=== PATIENT | female | born 1955 | race Caucasian/White ===

== ENCOUNTER → 2017-10-02 15:38 | Outpatient (CLI) | payer BC, SELFPAY ==
--- NOTE | 2017-10-02 15:43 | BD_ITS ---
STUDY: DUAL ENERGY X-RAY ABSORPTIOMETRY / DXA REASON FOR EXAM: Female, 62 years old. The patient is postmenopausal. No loss of height. TECHNIQUE: Bone Mineral Density (BMD) measurements of lumbar spine and bilateral hips were obtained. COMPARISON: None. FINDINGS: Lumbar Spine (L1-L4): g/cm2 (0.976) / T-score (-1.9) / Z-score (-0.6) Findings are suggestive of osteopenia with a moderate fracture risk. 50% loss of height of a mid dorsal vertebrae. Left Femur Total: g/cm2 (0.766) / T-score (-1.9) / Z-score (-0.9) Left Femoral Neck: g/cm2 (0.730) / T-score (-2.2) / Z-score (-0.9) Right Femur Total: g/cm2 (0.769) / T-score (-1.9) / Z-score (-0.9) Right Femoral Neck: g/cm2 (0.728) / T-score (-2.2) / Z-score (-1.0) BD/Dexa Bone Density Study IMPRESSION: The patient is considered osteopenic as outlined below according to World Myles Organization (WHO) criteria with a moderate fracture risk. Reference Information: The T-score is the number of standard deviations above or below the standard which is normal for young adults at their peak bone mineral density. The World Health Organization (WHO) interprets the T-scores as follows: Above -1 Normal bone density Between -1 and -2.5 Osteopenia Equal to / or below -2.5 Osteoporosis As a practical clinical guideline, osteopenia may be graded as follows: Mild -1 through -1.5 Moderate -1.6 through -2.0 Severe -2.1 through -2.4 The Z-score is the number of standard deviations above or below age-matched controls. A Z-score of less than -1.5 would be considered abnormal. References: 1. NIH Osteoporosis and Related Bone Diseases http://www.osteo.org 2. International Society for Clinical Densitometry http://www.iscd.org 3. National Osteoporosis Foundation http://www.nof.org Electronically Signed: Rocky Lunsford MD at 8:18 EDT Tel [phone], Service support ,
== END ==
PROVIDERS: Family Provider Internal Medicine; PCP Internal Medicine; Visit Provider Obstetrics & Gynecology
DX: Z13.820 Encounter for screening for osteoporosis (principal)
CPT/HCPCS: 77080

== ENCOUNTER → 2017-10-16 15:17 | Outpatient (CLI) | payer BC, SELFPAY ==
--- NOTE | 2017-10-16 15:21 | RAD_ITS ---
STUDY: X-RAY CHEST REASON FOR EXAM: Female, 62 years old. Chest pain TECHNIQUE: Thoracic pain COMPARISON: None. FINDINGS: The lungs are clear. There are no pleural effusions. There is no pneumothorax. The heart is normal in size. There is a moderate compression deformity in the midthoracic spine which is stable when compared with the DEXA scan dated 10/02/2017. RAD/Chest PA and Lateral IMPRESSION: Clear lungs. Moderate compression deformity in the midthoracic spine which is stable when compared with the DEXA scan dated 10/02/2017. Electronically Signed: Neil Box, at 16:28 EDT Tel , Service support ,
--- NOTE | 2017-10-16 15:21 | RAD_ITS ---
STUDY: X-RAY - THORACIC SPINE REASON FOR EXAM: Female, 62 years old. Back pain TECHNIQUE: 3 view(s) of the thoracic spine were obtained. COMPARISON: None. FINDINGS: There is a moderate compression deformity in the midthoracic spine which is stable when compared with the DEXA scan dated 10/02/2017. The remainder of the vertebral bodies are intact. There are mild degenerative changes. RAD/Thoracic Spine 3 Views IMPRESSION: Moderate compression deformity in the midthoracic spine which is stable when compared with the DEXA scan dated 10/02/2017. The remainder of the vertebral bodies are intact. Mild degenerative changes. Electronically Signed: Neil Box, at 16:31 EDT Tel , Service support ,
[2017-10-16 18:23] LABS: D-Dimer Quantitative (DVT/PE) < 0.27 FEU/ug/m (0.27-0.49)
== END ==
PROVIDERS: Family Provider Internal Medicine; PCP Internal Medicine; Visit Provider Internal Medicine
DX: M54.6 Pain in thoracic spine (principal)
CPT/HCPCS: 36415; 71046; 72072; 85379

== ENCOUNTER → 2017-10-30 17:00 | Outpatient (CLI) | payer BC, SELFPAY ==
--- NOTE | 2017-10-30 17:11 | MRI_ITS ---
STUDY: MRI THORACIC SPINE WITHOUT CONTRAST REASON FOR EXAM: Female, 62 years old. Mid back pain TECHNIQUE: Standardized fat and water weighted pulse sequences were obtained in the sagittal and axial planes. COMPARISON: None. FINDINGS: Normal kyphosis of the thoracic spine. There is no substantial scoliosis. There is acute wedging of superior endplate of T9 with approximately 70% loss of vertebral body height and minor retropulsion of the posterior superior endplate and disc T8-9 mildly narrowing the spinal canal without cord compression. There also appears to be bone marrow edema within the spinous process of T8 without definitive evidence for fracture line. There is minor bulging of the discs at T9-T10 and H77-70-79 without spinal stenosis. Normal visualized thoracic cord. Normal conus medullaris that terminates at T12-L1 The soft tissue structures are unremarkable. MRI/Spine Thoracic (Routine) IMPRESSION: Acute compression fracture of T9 with approximately 70% loss of vertebral body height with mild retropulsion of the posterior superior endplate and disc mildly narrowing the spinal canal without cord compression Electronically Signed: Tee Walters MD at 19:19 EDT , Service support ,
== END ==
PROVIDERS: Family Provider Internal Medicine; PCP Internal Medicine; Visit Provider Internal Medicine
DX: M48.54XA Collapsed vertebra, not elsewhere classified, thoracic region, initial encounter for fracture (principal)
CPT/HCPCS: 72146

== ENCOUNTER → 2018-07-05 15:16 | Outpatient (CLI) | payer OTHER, SELFPAY ==
--- NOTE | 2018-07-05 15:18 | BI_ITS ---
MAMMOGRAPHY - BILATERAL SCREENING REASON FOR EXAM: Female, 62 years old. Routine annual screening examination. PERTINENT HISTORY: Non-contributory. History of bilateral breast implants. TECHNIQUE: Digital bilateral breast patricia (3D mammographic acquisition) in the CC and MLO projections. 2-D mediolateral oblique (MLO) and craniocaudad (CC) views of both breasts were obtained. CAD: Full Field Digital Mammography with Computer Added Detection was performed. COMPARISON: Comparison is made with prior study dated May 17, 2017 and March 30, 2016. FINDINGS: Breast Composition: There are scattered areas of fibroglandular density. There are no dominant masses or suspicious calcifications. The patient is status post bilateral breast implants. These are unchanged. No other significant abnormalities are identified. There has been no significant change since the prior study. BI/SCREENING MAMM (CAD), BILAT IMPRESSION: Stable bilateral screening mammogram. Yearly follow-up mammogram recommended. (A) ASSESSMENT CATEGORY: BIRADS Category 2: Benign. A letter regarding these results will be sent to the patient by the facility within 30 days. Approximately 10% of breast cancers are not detected by mammography. A normal mammogram should not delay biopsy of a clinically suspicious abnormality. [id number] Electronically Signed: Rocky Lunsford MD at 8:47 EST Tel [phone], Service support ,
--- OUTSIDE RECORDS SUMMARY | 2018-09-09 05:21 | XMS RPT_ITS ---
:1955 Author Organization [facility] Care Team Providers Name Role Phone Antony Payne Attending Unavailable Winnie Eid Primary Care Unavailable Winnie Eid Attending Unavailable RaginiWinnie Referring Unavailable Ragini, Winnie Primary Care Unavailable RaginiWinnie Attending Unavailable Ragini, Winnie Primary Care Unavailable RaginiWinnie Referring Unavailable SealAntony kyle Attending Unavailable SealsAntony Referring Unavailable Ragini, Winnie Primary Care Unavailable PROBLEMS PROBLEMS DATE TYPE CONDITION / CODE ATTENDING STATUS SOURCE 10/16/2017 Unknown M54.6 - Pain in Winnie Eid Active [place] thoracic spine / Community M54.6(ICD-10) Hospital Repository PROCEDURES PROCEDURES No Procedure Records FoundRESULTS RESULTS SCREENING MAMM (CAD), Observed: 07/05/2018 Status: F Source: [place] BILAT 3:18 PM [facility] REPOSIT[facility] Imaging Services [address] [place] [address] SCREENING MAMM (CAD), BILAT MR#: [id number] Acct: [id number] Name: KIM BRIONES Rep #: [id number] : 1955 F 62 From: Rocky Lunsford MD PCP: Winnie Eid DO Status: [facility] Study: SCREENING MAMM (CAD), BILAT Date of Exam: 07/05/18 Exam# [id number] Ordering Dr: Antony Payne MD MAMMOGRAPHY - BILATERAL SCREENING REASON FOR EXAM: Female, 62 years old. Routine annual screening examination. PERTINENT HISTORY: Non-contributory. History of bilateral breast implants. TECHNIQUE: Digital bilateral breast patricia (3D mammographic acquisition) in the CC and MLO projections. 2-D mediolateral oblique (MLO) and craniocaudad (CC) views of both breasts were obtained. CAD: Full Field Digital Mammography with Computer Added Detection was performed. COMPARISON: Comparison is made with prior study dated May 17, 2017 and March 30, 2016. FINDINGS: Breast Composition: There are scattered areas of fibroglandular density. There are no dominant masses or suspicious calcifications. The patient is status post bilateral breast implants. These are unchanged. No other significant abnormalities are identified. There has been no significant change since the prior study. BI/SCREENING MAMM (CAD), BILAT IMPRESSION: Stable bilateral screening mammogram. Yearly follow-up mammogram recommended. (A) ASSESSMENT CATEGORY: BIRADS Category 2: Benign. A letter regarding these results will be sent to the patient by the facility within 30 days. Approximately 10% of breast cancers are not detected by mammography. A normal mammogram should not delay biopsy of a clinically suspicious abnormality. [id number] Electronically Signed: Rocky Lunsford MD at 8:47 EST Tel [phone], Service support , CC: nAtony Payne MD; Winnie Eid DO Assistant Counsel: Signed SED RATE WESTERGREN Collected: 11/26/2017 Status: F Source: [place] 4:30 PM [facility] REPOSITORY TYPE CODE TESTS RESULT OUT OF REFERENCE UNITS RANGE LAB WSR 0-20 mm/hr Sed Rate Westergren 2 Performed By: #### WSR, CBCDIF, CRP, SEPG #### [facility] [address] [place] [id number] CBC AND DIFFERENTIAL Collected: 11/26/2017 Status: F Source: [place] 4:30 PM [facility] REPOSITORY TYPE CODE TESTS RESULT OUT OF REFERENCE UNITS RANGE LAB WBC 3.70-11.00 k/uL WBC 6.05 LAB RBC 3.90-5.20 m/uL RBC 4.05 LAB HGB 11.5-15.5 g/dL Hemoglobin 12.4 LAB HCT 36.0-46.0 % Hematocrit 37.8 LAB MCV 80.0-100.0 fL MCV 93.3 LAB MCH 26.0-34.0 pG MCH 30.6 LAB MCHC 30.5-36.0 g/dL MCHC 32.8 LAB RDWCV 11.5-15.0 % RDW-CV 13.8 LAB PLTCT 150-400 k/uL Platelet High Count 401 LAB MPV 9.0-12.7 fL Low MPV 8.5 LAB ANEUT % Neut% 48.6 LAB AANEUT 1.45-7.50 k/uL Abs Neut 2.93 LAB ALYMP % Lymph% 38.8 LAB AALYMP 1.00-4.00 k/uL Abs Lymph 2.35 LAB AMONO % Taos% 9.9 LAB AAMONO <0.87 k/uL Abs [place]os 0.60 LAB AEOS % Eosin% 1.7 LAB AAEOS <0.46 k/uL Abs Eosin 0.10 LAB ABASO % Baso% 1.0 LAB AABASO <0.11 k/uL Abs Baso 0.06 LAB AUNRBC 0 /100 WBC NRBCs High 0.2 LAB ABNRBC <0.01 k/uL Absolute High nRBC 0.01 LAB DTYP DTYPE Auto Diff Performed By: #### WSR, CBCDIF, CRP, SEPG #### [facility] [employer] [address] [place], [place] [address] C-REACTIVE PROTEIN Collected: 11/26/2017 Status: F Source: [place] 4:30 PM [facility] REPOSITORY TYPE CODE TESTS RESULT OUT OF REFERENCE UNITS RANGE LAB CRP <0.9 mg/dL C-Reactive 0.1 Protein Performed By: #### WSR, CBCDIF, CRP, SEPG #### [facility] [address] [place], [place] [address] PROTEIN ELECTROPHOR. Collected: 11/26/2017 Status: F Source: [place] 4:30 PM [facility] REPOSITORY TYPE CODE TESTS RESULT OUT OF REFERENCE UNITS RANGE LAB TPSPE 6.0-8.4 g/dL Total Protein, SPE 6.8 LAB ALBE 3.37-4.23 gm/dL Albumin 3.67 LAB A1GL 0.18-0.31 gm/dL Alpha 1 Globulin 0.20 LAB A2GL 0.52-0.97 gm/dL Alpha 2 Globulin 0.72 LAB BEGL 0.84-1.36 gm/dL Beta Globulin 0.97 LAB GAGL 0.70-1.44 gm/dL Gamma Globulin 1.25 LAB SPEINT Interpretation SEE COMMENT Result Comment: An M protein is identified on protein electrophoresis. Recommend monoclonal protein analysis to further characterize the M protein. LAB LOC M Protein Gamma Location fraction LAB GPERDL 0.00 gm/dL M Tye 0.25 High Concentratn LAB SPESTF SPE Staff Review Reviewed by Chino Soria M.D., PhD ([id number]) Performed By: #### WSR, CBCDIF, CRP, SEPG #### [facility] [address] [place], [place] [address] SPINE THORACIC Observed: 10/30/2017 Status: F Source: [place] (ROUTINE) 5:12 PM [facility] REPOSITORY [facility] Imaging Services [address] [place] [address] Spine Thoracic (Routine) MR#: [id number] Acct: [id number] Name: KIM BRIONES Rep #: [id number] : 1955 F 62 From: Tee Walters MD PCP: Winnie Eid DO Status: PRE CLI Study: Spine Thoracic (Routine) Date of Exam: 10/30/17 Exam# [id number] Ordering Dr: Winnie Eid DO STUDY: MRI THORACIC SPINE WITHOUT CONTRAST REASON FOR EXAM: Female, 62 years old. Mid back pain TECHNIQUE: Standardized fat and water weighted pulse sequences were obtained in the sagittal and axial planes. COMPARISON: None. FINDINGS: Normal kyphosis of the thoracic spine. There is no substantial scoliosis. There is acute wedging of superior endplate of T9 with approximately 70% loss of vertebral body height and minor retropulsion of the posterior superior endplate and disc T8-9 mildly narrowing the spinal canal without cord compression. There also appears to be bone marrow edema within the spinous process of T8 without definitive evidence for fracture line. There is minor bulging of the discs at T9-T10 and H83-83-30 without spinal stenosis. Normal visualized thoracic cord. Normal conus medullaris that terminates at T12-L1 The soft tissue structures are unremarkable. MRI/Spine Thoracic (Routine) IMPRESSION: Acute compression fracture of T9 with approximately 70% loss of vertebral body height with mild retropulsion of the posterior superior endplate and disc mildly narrowing the spinal canal without cord compression Electronically Signed: Tee Walters MD at 19:19 EDT , Service support , CC: Nestor Bower MD; Winnie Eid DO Assistant Counsel: Signed D-DIMER QUANTITATIVE Collected: 10/16/2017 Status: F Source: [place] (DVT/PE) 3:25 PM [facility] REPOSITORY TYPE CODE TESTS RESULT OUT OF RANGE REFERENCE UNITS LAB L300.8000 0.27-0.49 FEU/ug/m Low D-DIMER < 0.27 QUANT Result Comment: NORMAL D-Dimer level (<0.50) indicates no DVT or PE. Performed By: #### L300.8000 #### [facility] [address] [place], [address] CHEST PA AND LATERAL Observed: 10/16/2017 Status: F Source: [place] 3:22 PM [facility] REPOSITORY [facility] Imaging Services [address] [place] [address] Chest PA and Lateral MR#: [id number] Acct: [id number] Name: KIM BRIONES Rep #: [id number] : 1955 F 62 From: Neil Box MD PCP: Winnie Eid DO Status: REG CLI Study: Chest PA and Lateral Date of Exam: 10/16/17 Exam# [id number] Ordering Dr: Winnie Eid DO STUDY: X-RAY CHEST REASON FOR EXAM: Female, 62 years old. Chest pain TECHNIQUE: Thoracic pain COMPARISON: None. FINDINGS: The lungs are clear. There are no pleural effusions. There is no pneumothorax. The heart is normal in size. There is a moderate compression deformity in the midthoracic spine which is stable when compared with the DEXA scan dated 10/02/2017. RAD/Chest PA and Lateral IMPRESSION: Clear lungs. Moderate compression deformity in the midthoracic spine which is stable when compared with the DEXA scan dated 10/02/2017. Electronically Signed: Neil Box, at 16:28 EDT Tel , Service support , CC: Winnie Eid DO Assistant Counsel: Signed THORACIC SPINE 3 Observed: 10/16/2017 Status: F Source: [place] VIEWS 3:22 PM [facility] REPOSITORY [facility] Imaging Services [address] [place] [address] Thoracic Spine 3 Views MR#: [id number] Acct: [id number] Name: KIM BRIONES Rep #: [id number] : 1955 F 62 From: Neil Box MD PCP: Winnie Eid DO Status: REG CLI Study: Thoracic Spine 3 Views Date of Exam: 10/16/17 Exam# [id number] Ordering Dr: Winnie Eid DO STUDY: X-RAY - THORACIC SPINE REASON FOR EXAM: Female, 62 years old. Back pain TECHNIQUE: 3 view(s) of the thoracic spine were obtained. COMPARISON: None. FINDINGS: There is a moderate compression deformity in the midthoracic spine which is stable when compared with the DEXA scan dated 10/02/2017. The remainder of the vertebral bodies are intact. There are mild degenerative changes. RAD/Thoracic Spine 3 Views IMPRESSION: Moderate compression deformity in the midthoracic spine which is stable when compared with the DEXA scan dated 10/02/2017. The remainder of the vertebral bodies are intact. Mild degenerative changes. Electronically Signed: Neil Box, at 16:31 EDT Tel , Service support , CC: Winnie Eid DO Assistant Counsel: Signed DEXA BONE DENSITY Observed: 10/02/2017 Status: F Source: [place] STUDY 3:41 PM [facility] REPOSITORY [facility] Imaging Services [address] [place] [address] Dexa Bone Density Study MR#: [id number] Acct: [id number] Name: KIM BRIONES Rep #: [id number] : 1955 F 62 From: Rocky Lunsford MD PCP: Winnie Eid DO Status: REG CLI Study: Dexa Bone Density Study Date of Exam: 10/02/17 Exam# [id number] Ordering Dr: Antony Payne MD STUDY: DUAL ENERGY X-RAY ABSORPTIOMETRY / DXA REASON FOR EXAM: Female, 62 years old. The patient is postmenopausal. No loss of height. TECHNIQUE: Bone Mineral Density (BMD) measurements of lumbar spine and bilateral hips were obtained. COMPARISON: None. FINDINGS: Lumbar Spine (L1-L4): g/cm2 (0.976) / T-score (-1.9) / Z-score (-0.6) Findings are suggestive of osteopenia with a moderate fracture risk. 50% loss of height of a mid dorsal vertebrae. Left Femur Total: g/cm2 (0.766) / T-score (-1.9) / Z- score (-0.9) Left Femoral Neck: g/cm2 (0.730) / T-score (-2.2) / Z- score (-0.9) Right Femur Total: g/cm2 (0.769) / T-score (-1.9) / Z- score (-0.9) Right Femoral Neck: g/cm2 (0.728) / T-score (-2.2) / Z-score (-1.0) BD/Dexa Bone Density Study IMPRESSION: The patient is considered osteopenic as outlined below according to World Myles Organization (WHO) criteria with a moderate fracture risk. Reference Information: The T-score is the number of standard deviations above or below the standard which is normal for young adults at their peak bone mineral density. The World Health Organization (WHO) interprets the T-scores as follows: Above -1 Normal bone density Between -1 and -2.5 Osteopenia Equal to / or below -2.5 Osteoporosis As a practical clinical guideline, osteopenia may be graded as follows: Mild -1 through -1.5 Moderate -1.6 through -2.0 Severe -2.1 through -2.4 The Z-score is the number of standard deviations above or below age-matched controls. A Z-score of less than -1.5 would be considered abnormal. References: 1. NIH Osteoporosis and Related Bone Diseases http://www.osteo.org 2. International Society for Clinical Densitometry http://www.iscd.org 3. National Osteoporosis Foundation http://www.nof.org Electronically Signed: Rocky Lunsford MD at 8:18 EDT Tel [phone], Service support , CC: Antony Payne MD; Wninie Eid DO Assistant Counsel: Signed ALLERGIES ALLERGIES DATE TYPE / CODE NAME / CODE REACTION SEVERITY SOURCE 06/24/2015 Drug No Known Unknown [place] [facility] Allergy/4160 Allergies/F00 Hospital [address](SNOMED [id number](RXNOR Repository CT) M) ENCOUNTERS ENCOUNTERS ADMIT/DISCHARGE ACCOUNT ADMITTING ENCOUNTER LOCATION SOURCE NUMBER CLASS 07/05/2018 [id number] [facility] [place] 4 [facility] ing:OPBI Repository 10/30/2017 [id number] [facility] [place] 6 [facility] ing:MRI Repository 10/16/2017 [id number] [facility] [place] 9 [facility] ing:RAD.FUTUR Repository E 10/02/2017 [id number] [facility] [place] 2 [facility] ing:OPBD Repository PAYERS PAYERS ENCOUNTER GUARANTOR PAYER SUBSCRIBER SOURCE 07/05/2018 NESTOR Cruz Primary Insurance:R KIM Sanders [id number] DORIAN [id number] COFFEEDOB: [facility] Number: [id number] [id number] Repository [address]Mek: (330) Date:2442-42-97[phone] () [place], [place] [address]DR: 07/05/2018 Secondary NOT GIVENUNK [place] Insurance:SELF PAY [facility] Number: Effective Repository Date:2018-05-14 10/30/2017 NESTOR Cruz Primary KIM J [place] [id number] Insurance:ANTHEMPolic COFFEEDOB: Community MAIRAA y Number: [id number], [place] [id number] Repository [address]Gdk: (330) Date:6173-88-33KD [phone] (HP) [id number], [place] [address]JV: 10/30/2017 Secondary NOT GIVENUNK [place] Insurance:SELF PAY [facility] Number: Effective Repository Date:2017-10-30 10/16/2017 NESTOR Cruz Primary KIM Patel [place] [id number] Insurance:ANTHEMPolic COFFEEDOB: Community MARIAA y [place]: [id number] [id number] Repository [address]Ijp: Date:7929-07-26BJ [phone] [id number] [address] () [address]FG: 10/16/2017 Secondary NOT GIVENUNK [place] Insurance:SELF PAY [facility] Number: Effective Repository Date:2017-10-16 10/02/2017 Nestor Cruz Primary KIM [place] [id number] Insurance:ANTHEMPolic COFFEEDOB: Community Mariaa y Number: [id number] [id number] Repository [address]Whf: Date:3199-28-84JV [phone] [id number] [address] 6 () [address]BR: 10/02/2017 Secondary NOT GIVENUNK [place] Insurance:SELF PAY [facility] Number: Effective Repository Date:2017-09-12
--- OUTSIDE RECORDS SUMMARY | 2018-09-09 05:21 | XMS RPT_ITS | Continuity of Care Document ---
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 pain by 50 % or greater with job demands and housework tasks. Goal Time Fram e: 4-6 Weeks Goal 3:: Patient to be independant with posture for job demands Goal Time Frame: 4-6 Weeks Goal 4:: Patient to be able to perform job demands and houswork tasks with min to no limitations G oal Time Frame: 4-6 Weeks - Rehabilitation Potential Physical Therapy Diagnosis: This patient has tenderness scapular muscle impairs to be related to jod demands,posture and mild RTC thus benifit from skilled PT Rehabilitation Potential: Good - Anticipated Interventions Patient/Client Instruction: Educate patient on: Condition, Plan of Care For the Purpose of:: To decrease pain, To increase ROM, To improve muscle performance and motor function, To increase tolerance to activity/condition/position, To improve performance and independence with ADL's, To decrease level of supervision to perform tasks , To improve ability of physical actions for home/community/work/leisure, To improve health of tissue, To decrease soft tissue restriction, To increase flexibility/ROM, To reduce risk of recurrence, To improve self management, To prevent re-injury, To improve ability to perform tasks related to life management Therapeutic Exercise to Include: Strength training, Body mechanics, Postural training, Flexi bilty training, Scapular Strength/Stabilization For the Purpose of:: To decrease pain, To increase ROM, To improve muscle performance and motor function, To improve ability to perform ADL's, To increase tolerance to activity/condition/ position, To decrease level of supervision to perform tasks, To improve ability of physical actions for home/community/work/leisure, To improve health of tissue, To inc rease flexibility/ ROM, To reduce risk of recurrence, To improve self management, To prevent re-injury, To improve ability to perform tasks related to life management Manual Therapy Techniques to Includ e: Trigger point massage, Mobilization, Soft tissue mobilization For the Purpose of:: To decrease pain, To decrease swelling/inflammation, To improve nutrient delivery to tissue, To improve muscle perfo rmance and motor function, To improve health of tissue, To decrease soft tissue restriction, To increase flexibility/ROM IF ES: Yes Cryotherapy (ice pack, ice massage): Yes Thermo therapy (hot pack): Ye s Ultrasound (thermal/non thermal): Yes For the Purpose of:: To decrease pain, To decrease swelling/inflammation, To improve nutrient delivery to tissue, To increase oxygenation perfusion, To improve he alth of tissue, To decrease soft tissue restriction Thank you for the opportunity to evaluate your patient. For Medicare and Medicare HMO plans, please review the plan of care and approve it. It wi ll need to be FAXED BACK to us at [phone] for Medicare purposes. Please let me know if there are questions or concerns regarding this plan of care. Physician Signature: Date: <Electronically signed by Keith Goldstein PT, Cert. T, OCS> 03/31/16 0934 CC: Winnie Eid DO ANIBAL Signed Fo r Medicare only, by signing this I certify the plan of care. Physicians Signature Date 30-Mar-2016 Bilat Scrn Digital AND CAD Result: Comments: See Note; NOTES: [facility] Imaging Services [address] [place] [address] Verdana 4d Bilat Scrn Digital AND CAD MR#: [id number] Acct: [id number] Name: MICAH FOURNIER Rep #: [id number] : 1955 F 60 From: Zara Brown MD PCP: Winnie Eid DO Status: REG CLI Study: Bilat Scrn Digital AND CAD Date of Exam: 03/30/16 Exam# [id number] Ordering Dr: Papito York METAL PATTERNMAKER-C MAMMOGRAPHY - BILATERAL SCREENING REASON FOR EXAM: Female, 60 years old. Routine annual screening examination. PERTINENT HISTORY: NO FAM HX - BILAT IMPLANTS 30+ YRS AGO TECHNIQUE: Digital bilateral breast patricia (3D mammographic acquisition) in the CC and MLO projections. 2-D mediolateral oblique (MLO) and craniocaudad (CC) views of both breasts were obtained. CAD: Full Field Digital Mamm ography with Computer Added Detection was performed. COMPARISON: February 26, 2015 FINDINGS: Breast Composition: There are scattered areas of fibroglandular densit y. There are no dominant masses or suspicious calcifications. No other significant abnormalities are identified. HPBI/Bilat Scrn Digital AND C AD IMPRESSION: Stable bilateral screening mammogram. Yearly follow-up mammogram recommended. (A) ASSESSMENT CATEGORY: BIRADS Category 2: Benign. A letter regarding these results will be sent to the patient by the facility within 30 days. Approximately 10% of breast cancers are not detected by mammography. A normal mammogram should not delay biopsy of a clinically suspicious abnormality. [id number] Electronically Signed: Zara Brown MD at 16:48 EDT Tel , Service support [phone], CC: Marilyn York; Geri Eid DO Director Of Video Analytics: Signed 30-Mar-2016 Shoulder min 2 Views Result: Comments: See Note; NOTES: [facility] Imaging Services [address] [place] [address] Verdadiogenes 4d Shoulder min 2 Views MR#: [id number] Acct: [id number] Name: KARLA FOURNIER Rep #: [id number] : 1955 F 60 From: Hebert Rasmussen MD PCP: Winnie Eid DO Status: REG CLI Study: Shoulder min 2 Views Date of Exam: 03/30/16 Exam# [id number] Ordering Dr: Winnie Eid DO STUDY: X-RAY - LEFT SHOULDER REASON FOR EXAM: Female, 60 years old. Pain without injury TECHNIQUE: 4 view(s) of the shoulder. COMPARISON: None. FINDINGS: Normal g lenohumeral articulation. Normal acromioclavicular joint. Normal acromion. Normal humeral head and visualized proximal humerus. The soft tissue structures are unremarkable. Normal visualized pulmonar y apex. RAD/Shoulder min 2 Views IMPRESSION: Normal x-ray examination of the shoulder. Electronically Signed: Hebert Rasmussen MD, FACR 03/30 at 15:41 EDT , Service support [phone], CC: Winnie Eid DO Director Of Video Analytics: Signed 30-Jun-2015 Discharge Instruction Result: Comments: See Note; NOTES: [facility] Medical Records Department [facility] [place] [address] Instructions for Home/Discharge Instructions 06/30/15 0908 MR#: [id number] Acct: [id number] Name: KARLA FOURNIER Rep #: [id number] : 1955 59 From: Antony Harden MD PCP: Katelynn Manzanares MD Status: REG [facility] Discharge Diet: No Restrictions Discharge Activity: Ma y Not Drive, May not drive while taking narcotic pain medications., May Shower Return to work on:: 08/02/15 May shower in (days): 0 May resume sexual activity in: 6 weeks Lifting Restrictions: 20 l bs Call your doctor if your incision/area has: Sudden Increased Bleeding, Increased Pain/ Swelling , Foul Smelling Discharge, Swelling at the incision site Call your doctor if you observe: Fever of 10 1 or Higher, Inability to urinate, Inability to have a bowel movement, Using more than one pad per hour, Shortness of breath, Chest pain, Uncontrolled pain Suture Line Care: Avoid Pulling/Pushing Cl eanse incision/area with: Soap AND Water Allergies/Adverse Reactions: Allergies No Known Allergies Allergy (Verified 06/24/15 15:34) Medications to take at Discharge RX: Calcium Carbonate [Jose Raul cium] 600 mg PO DAILY 06/24/15 RX: Cholecalciferol (VIT D3) [Vitamin D3] 2,000 unit PO DAILY 06/24/15 RX: Duloxetine HCl 30 mg PO DAILY 06/24/15 RX: Levothyroxine Sodium [Levoxyl] 75 mcg PO DAILY 12/31 RX: Multivitamins,Therapeutic [Multivitamin] 1 tablet PO DAILY 06/24/15 RX: Harbinger-3 Fatty Acids/Fish Oil [Fish Oil 1,000 mg Capsule] 1 each PO DAILY 06/24/15 RX: Vitamin E Acetate [Vitamin E] 4 00 unit PO DAILY 06/24/15 RX: Zinc Gluconate [Zinc] 50 mg PO DAILY 06/24/15 RX: Ibuprofen [Motrin] 600 mg PO Q6H PRN PRN #30 tablet 06/30/15 RX: Oxycodone HCl/Acetaminophen [Percocet 5-325] 2 tablet PO Q4H PRN PRN #30 tablet 06/30/15 The following prescriptions were given: RX: Oxycodone HCl/Acetaminophen [Percocet 5-325] 2 tablet PO Q4H PRN PRN #30 tablet PRN Reason: Moderate-Severe pain RX: Ibuprofen [Motrin] 600 mg PO Q6H PRN PRN #30 tablet PRN Reason: mild to moderate pain Please Follow Up With: Antony Harden When: one week Proposed Discharge Date: 07/01/15 06/30/15 0909 & #60;Electronically signed by Antony Harden MD> Date Antony Harden MD CC: Katelynn Manzanares MD 25-Jun-2015 12 Lead Electrocardiogram Result: Comments: See Note; NOTES: [facility] Cardiovascular Services [address] [place] [address] 12 Lead EKG 06/23/151644 MR#: [id number] Acct: [id number] Name: KARLA BOLAÑOS Rep #: [id number] : 1955 59 From: Maco Pinto MD Attending Dr: Antony Harden MD Status: PRE SDC Ordering Dr: Antony Harden MD Date: 06/23/15 Location: [facility] Sex: F C Admitted: Test Reason : PRE-OP Blood Pressure : / mmHG Vent. Rate : 060 BPM Atrial Rate : 060 BPM P-R Int : 162 ms QRS Dur : 088 ms QT Int : 412 ms P-R-T Axes : 079 077 070 degrees QTc Int : 412 ms Normal sinus rhythm Normal ECG Confirmed by MACO PINTO ([id number]), editorial intern SMOOTH BRENNER ([id number]) on 06/25/2015 1:57:03 PM Referred By: DERECK Confirmed By:MACO PINTO 06/25/15 1357 Date ____ Maco Pinto MD CC: Katelynn Manzanares MD Date Dictated: 06/23/151644 Date Transcribed: 06/23/151644 Director Of Video Analytics: Signed 23-Jun-2015 Chest PA and Lateral Result: Comments: See Note; NOTES: [facility] Imaging Services [address] [place] [address] Verdana 4d Chest PA and Lateral MR#: [id number] Acct: [id number] Name: KARLA FOURNIER Rep #: [id number] : 1955 F 59 From: Norberto Abrams DO PCP: Katelynn Manzanares MD Status: PRE SDC Study: Chest PA and Lateral Date of Exam: 06/23/15 Exam# [id number] Ordering Dr: Antony Harden MD STUDY: X-RAY CHEST REASON FOR EXAM: Female, 59 years old. Preop. Smoking history. TECHNIQUE: PA and lateral views of the chest. COMPARISON: December 12, 2012. ____ FINDINGS: The lungs are mildly hyperinflated. There is no acute infiltrate or mass. There is no demonstrated pleural abnormality. Normal size heart. Normal mediastinum and delia. Normal visua lized pulmonary arteries. Normal visualized aortic arch and descending thoracic aorta. Normal visualized thoracic spine. Normal visualized ribs, clavicles, and shoulders. There is no demonstrated abnormality of the visualized soft tissue structures of the upper abdomen. IMPRESSION: Hyperinflated lungs without acute cardiopulmonary disease or interval ch dionisio. Electronically Signed: Norberto Abrams DO at 17:03 EST Tel [phone], Service support [phone], 0086 RAD/Chest PA and Lateral IMPRESSION: Hyp erinflated lungs without acute cardiopulmonary disease or interval change. Electronically Signed: Norberto Abrams DO at 17:03 EST Tel [phone], Service support [phone], Fax CC: Katelynn Manzanares MD; Antony Harden MD Director Of Video Analytics: Signed 31-May-2015 ELECTROCARDIOGRAM, COMPLETE (ECG) ([id number]) Result: [MEASUREMENTS ANALYSIS] Date of Test: 05/31/2015 09:41:42; Heart Rate: 69; KY Interval: 148; QRS: 94; QT Interval: 380; Corrected QT Interval (QTc): 395; P Wave Hillman: 69; QRS Wave Hillman: 46; T Wave Hillman: 45; Blood Pressure: 134/76 [ECG DIAGNOSTIC STATEMENTS] Date of Test: 05/31/2015 09:41:42; Summary: Sinus Rhythm Low voltage with rightward P-axis and rotation -possible pulmonary disease. ABNORMAL 17-May-2015 ELECTROCARDIOGRAM WITH INTERPRETATION ([id number]) Comments: see scanned document of test done to see results reviewed today with patient Result: [MEASUREMENTS ANALYSIS] Date of Test: 05/17/2015 15:56:44; Heart Rate: 64; KY Interval: 150; QRS: 91; QT Interval: 392; Corrected QT Interval (QTc): 399; P Wave Hillman: 68; QRS Wave Hillman: 47; T Wave Hillman: 42; Blood Pressure: 120/80 [ECG DIAGNOSTIC STATEMENTS] Date of Test: 05/17/2015 15:56:44; Summary: Sinus Rhythm WITHIN NORMAL LIMITS 17-Nov-2014 PT Discharge Summary Result: Comments: See Note; NOTES: [facility] [address] [place] [address]. [address] [place] [address] Fax REHABILITATION SERVICES DISCHARGE SUMMARY MR#: [id number] Acct: [id number] Name: KARLA FOURNIER Rep #: [id number] : 1955 59 From: Mery Cruz Referring : Winnie Eid DO Status: DIS RCR Eval Date: Disc harge Date: 11/15/14 DATE OF SERVICE: 11/13/2014 SUBJECTIVE: This patient was referred to physical therapy by Dr. Eid with a diagnosis of cervical radiculopathy. She has been seen in our cli joie times a total of 14 visits. Her physical therapy has mainly consisted of therapeutic exercise and intermittent cervical traction to help meet the set goals. She has canceled her last 2 appointment s and states that she is no longer having any pain even with work. All physical therapy goals appear to be met and I am discharging her chart at this time. Mery Cruz, PT T: [facility] JOB: [id number] <Electronically signed by Mery Cruz > 11/17/14 1524 CC: Signed 25-Sep-2014 Inital Evaluation - PT Result: Comments: See Note; NOTES: [facility] [address] [place] [address]. [address] [place] [address] Fax REHABILITATION SERVICES INITIAL EVALUATION MR#: [id number] Acct: [id number] Name: KARLA FOURNIER Rep #: [id number] : 1955 59 From: Mery Cruz Referring : Winnie Eid DO Status: REG RCR Insurance: ANTH EM Eval Date: DATE OF SERVICE: 09/21/2014 SUBJECTIVE: This patient was referred to physical therapy by Dr. Winnie Eid with a diagnosis of cervical radiculopathy. 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 Her job involves repetitive lifting of 3-4 pounds her entire shift, but up to about 20 pounds maximum. She re ports bilateral neck pain, left greater than right that radiates into the left shoulder blade region. Her pain is intermittent and ranges 0-8/10. She also has intermittent left thumb and index fing er numbness. This pain started about 2 weeks ago and has been improving since receiving a Toradol shot last Sunday from Dr. Eid. She had this problem about a year ago also and a Toradol shot help ed then too. Currently, sitting, standing, turning her head to the left and lying down increase her pain, sometimes sitting, Icy Hot and Tylenol help. The pain is disturbing her sleep. She denies di zziness, ringing in the ears, nausea or difficulty swallowing. She denies difficulty using her arms. She does report that her arms do not feel like they are strong as they used to be though. She st ates she is otherwise in good health, but does have hypothyroidism. Recent x- ray of her neck showed normal aging per patient report. She denies any recent or major surgery , having been in any accide nts or any unexplained weight loss. OBJECTIVE: This patient presents with poor sitting posture, fair standing posture, protruded head but no torticollis. Active correction of her sitting posture thurman s no effect on her symptoms. Bilateral upper extremity range of motion and strength are within functional limits with a right refrigeration houseman strength of 50 pounds and left 45 pounds. Bilateral upper extremity light touch sensation is intact and symmetrical. Bilateral upper extremity reflexes are 2/2. Cervical movement loss: Protrusion -- nil, flexion -- nil, retraction -- moderate, extension -- minimal , bilateral side gliding -- minimal, bilateral rotation -- minimal. Left rotation range of motion testing provokes pain. She has a positive response to manual cervical traction. ASSESSMENT: This patient is a 59-year-old female with complaint of intermittent left neck, scapular pain and intermittent left digits 1 and 2 numbness started about 2 weeks ago and she had episodes similar to this about a year ago. GOALS: 1. Decrease complaint of left neck and shoulder pain. 2. Decrease complaint of left left hand numbness. 3. Improve sitting, head turning, standing, lying and sleep fun ction. 4. Instruct in prophylaxis. PLAN: We plan to see this patient 2-3 times a week x4-6 weeks for soft tissue mobilization, ultrasound, electrical stimulation with cold pack or moist heat, manu al traction, posture correction/strengthening and proper work ergonomic instruction to help meet the above goals. She was agreeable with this plan of care. Mery Cruz, PT T: [facility] JOB: [id number] <Electronically signed by Mery Cruz > 09/25/14 1538 CC: Signed For Medicare only, by signing this I certify the plan of care. Physicians Signature Date 14-Sep-2014 Cerv Spine 4 or 5 Views Result: Comments: See Note; NOTES: [facility] Imaging Services [address] [place] [address] Radiology Report MR#: [id number] Acct: [id number] Name: KARLA FOURNIER Rep #: [id number] : 1955 F 59 From: Michel Brandt MD PCP: Winnie Eid DO Status: REG CLI Study: Cerv Spine 4 or 5 Views Date of Exam: 09/14/14 Exam# [id number] Ordering Dr: Winnie Eid DO BHARATH DY: X-RAY - CERVICAL SPINE REASON FOR EXAM: Female, 59 years old. NECK PAIN, NKI. PAIN IN LEFT SHOULDER, PAIN RADIATES INTO LEFT SIDE OF CERVICAL. NUMBNESS IN LEFT HAND/FINGERS X 2 WEEKS TECHNIQUE : 5 view(s) of the cervical spine were obtained. COMPARISON: None FINDINGS: Normal anterior atlantoaxial articulation. Normal odontoid process. Normal cervica l lordosis. Normal vertebral bodies and endplates. Loss of intervertebral disc height at C5-6. Normal visualized intervertebral neuroforamina. The soft tissue structures are unremarkable. IMPRESSION: Mild degenerative changes at C5-6. Electronically Signed: Michel Brandt MD at 19:17 EDT , Service support [phone], Fax RAD/Cerv Spine 4 or 5 Views IMPRESSION: Mild degenerative changes at C5-6. 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 Status: Active Tobacco use: Former smoker. Comments: updated 04-24-11 Status: Inactive Smoking Status Name Dates Details Former smoker Vital Signs Date Test Result Details [id number] Pulse 66 /min Comments: Pattern: Regular Respiration Rate 18 /min Comments: Pattern: Unlabored O2 SAT 97 % Comments: Room air BP Systolic 132 mm[Hg] Comments: Patient Position: Sitting; Cuff Location: Left Arm; Cuff Size: Large BP Diastolic 76 mm[Hg] Comments: Patient Position: Sitting; Cuff Location: Left Arm; Cuff Size: Large Weight 137 lb Height 63 in Body Mass Index Calculated 24.27 kg/m2 Body Surface Area Calculated 1.65 m2 [id number] Pulse 68 /min Comments: Pattern: Regular Respiration Rate 18 /min Comments: Pattern: Unlabored O2 SAT 97 % Comments: Room air BP Systolic 134 mm[Hg] Comments: Patient Position: Sitting; Cuff Location: Left Arm; Cuff Size: Standard BP Diastolic 76 mm[Hg] Comments: Patient Position: Sitting; Cuff Location: Left Arm; Cuff Size: Standard Weight 137 lb Height 63 in Body Mass Index Calculated 24.27 kg/m2 Body Surface Area Calculated 1.65 m2 [id number] Pulse 69 /min Comments: Pattern: Regular Respiration Rate 18 /min Comments: Pattern: Unlabored O2 SAT 97 % Comments: Room air BP Systolic 122 mm[Hg] Comments: Patient Position: Sitting; Cuff Location: Left Arm; Cuff Size: Standard BP Diastolic 82 mm[Hg] Comments: Patient Position: Sitting; Cuff Location: Left Arm; Cuff Size: Standard Weight 134.375 lb Height 63 in Body Mass Index Calculated 23.8 kg/m2 Body Surface Area Calculated 1.63 m2 :01 Pulse 67 /min Comments: Pattern: Regular Respiration Rate 18 /min Comments: Pattern: Unlabored O2 SAT 97 % Comments: Room air BP Systolic 138 mm[Hg] Comments: Patient Position: Sitting; Cuff Location: Left Arm; Cuff Size: Standard BP Diastolic 82 mm[Hg] Comments: Patient Position: Sitting; Cuff Location: Left Arm; Cuff Size: Standard Weight 134.5 lb Height 63 in Body Mass Index Calculated 23.83 kg/m2 Body Surface Area Calculated 1.63 m2 :12 Pulse 67 /min Comments: Pattern: Regular Respiration Rate 18 /min Comments: Pattern: Unlabored O2 SAT 96 % Comments: Room air BP Systolic 122 mm[Hg] Comments: Patient Position: Sitting; Cuff Location: Left Arm; Cuff Size: Standard BP Diastolic 80 mm[Hg] Comments: Patient Position: Sitting; Cuff Location: Left Arm; Cuff Size: Standard Weight 140.125 lb Height 63 in Body Mass Index Calculated 24.82 kg/m2 Body Surface Area Calculated 1.66 m2 :16 Temperature 98.8 f Pulse 68 /min Comments: Pattern: Regular Respiration Rate 16 /min Comments: Pattern: Unlabored O2 SAT 97 % Comments: Room air BP Systolic 118 mm[Hg] Comments: Patient Position: Sitting; Cuff Location: Left Arm; Cuff Size: Standard BP Diastolic 76 mm[Hg] Comments: Patient Position: Sitting; Cuff Location: Left Arm; Cuff Size: Standard Weight 140.125 lb Height 63 in Body Mass Index Calculated 24.82 kg/m2 Body Surface Area Calculated 1.66 m2 :30 Temperature 97.6 f Pulse 75 /min Comments: Pattern: Regular Respiration Rate 18 /min Comments: Pattern: Unlabored O2 SAT 96 % Comments: Room air BP Systolic 124 mm[Hg] Comments: Patient Position: Sitting; Cuff Location: Left Arm; Cuff Size: Standard BP Diastolic 82 mm[Hg] Comments: Patient Position: Sitting; Cuff Location: Left Arm; Cuff Size: Standard Weight 140.125 lb Height 63 in Body Mass Index Calculated 24.82 kg/m2 Body Surface Area Calculated 1.66 m2 :27 Pulse 65 /min Comments: Pattern: Regular Respiration Rate 18 /min Comments: Pattern: Unlabored O2 SAT 97 % Comments: Room air BP Systolic 122 mm[Hg] Comments: Patient Position: Sitting; Cuff Location: Left Arm; Cuff Size: Large BP Diastolic 80 mm[Hg] Comments: Patient Position: Sitting; Cuff Location: Left Arm; Cuff Size: Large Weight 137.375 lb Height 63 in Body Mass Index Calculated 24.33 kg/m2 Body Surface Area Calculated 1.65 m2 :34 Pulse 81 /min Comments: Pattern: Regular Respiration Rate 18 /min Comments: Pattern: Unlabored O2 SAT 98 % Comments: Room air BP Systolic 128 mm[Hg] Comments: Patient Position: Sitting; Cuff Location: Left Arm; Cuff Size: Standard BP Diastolic 82 mm[Hg] Comments: Patient Position: Sitting; Cuff Location: Left Arm; Cuff Size: Standard Weight 134.5 lb Height 63 in Body Mass Index Calculated 23.83 kg/m2 Body Surface Area Calculated 1.63 m2 :19 Pulse 96 /min Comments: Pattern: Regular Respiration Rate 18 /min Comments: Pattern: Unlabored O2 SAT 99 % Comments: Room air BP Systolic 136 mm[Hg] Comments: Patient Position: Sitting; Cuff Location: Left Arm; Cuff Size: Standard BP Diastolic 88 mm[Hg] Comments: Patient Position: Sitting; Cuff Location: Left Arm; Cuff Size: Standard Weight 132.125 lb Height 63 in Body Mass Index Calculated 23.4 kg/m2 Body Surface Area Calculated 1.62 m2 :46 Temperature 98.6 f Comments: Method: Temporal Pulse 78 /min Comments: Pattern: Regular Respiration Rate 16 /min Comments: Pattern: Unlabored O2 SAT 98 % Comments: Room air BP Systolic 115 mm[Hg] Comments: Patient Position: Sitting; Cuff Location: Left Arm; Cuff Size: Standard BP Diastolic 70 mm[Hg] Comments: Patient Position: Sitting; Cuff Location: Left Arm; Cuff Size: Standard Weight 136 lb Height 63 in Body Mass Index Calculated 24.09 kg/m2 Body Surface Area Calculated 1.64 m2 :43 Temperature 97.6 f Pulse 76 /min Comments: Pattern: Regular Respiration Rate 16 /min Comments: Pattern: Unlabored O2 SAT 97 % Comments: Room air BP Systolic 116 mm[Hg] Comments: Patient Position: Sitting; Cuff Location: Left Arm; Cuff Size: Standard BP Diastolic 78 mm[Hg] Comments: Patient Position: Sitting; Cuff Location: Left Arm; Cuff Size: Standard Weight 139 lb Height 63 in Body Mass Index Calculated 24.62 kg/m2 Body Surface Area Calculated 1.66 m2 :29 Temperature 98 f Comments: Method: Temporal Pulse 79 /min Comments: Pattern: Regular Respiration Rate 16 /min Comments: Pattern: Unlabored O2 SAT 97 % Comments: Room air BP Systolic 134 mm[Hg] Comments: Patient Position: Sitting; Cuff Location: Left Arm; Cuff Size: Standard BP Diastolic 76 mm[Hg] Comments: Patient Position: Sitting; Cuff Location: Left Arm; Cuff Size: Standard Weight 137 lb Height 63 in Body Mass Index Calculated 24.27 kg/m2 Body Surface Area Calculated 1.65 m2 :14 Temperature 97.9 f Comments: Method: Temporal Pulse 74 /min Comments: Pattern: Regular Respiration Rate 18 /min Comments: Pattern: Unlabored O2 SAT 98 % Comments: Room air BP Systolic 120 mm[Hg] Comments: Patient Position: Sitting; Cuff Location: Left Arm; Cuff Size: Standard BP Diastolic 80 mm[Hg] Comments: Patient Position: Sitting; Cuff Location: Left Arm; Cuff Size: Standard Weight 137 lb Height 63 in Body Mass Index Calculated 24.27 kg/m2 Body Surface Area Calculated 1.65 m2 :26 Pulse 67 /min Comments: Pattern: Regular Respiration Rate 18 /min Comments: Pattern: Unlabored O2 SAT 98 % Comments: Room air BP Systolic 128 mm[Hg] Comments: Patient Position: Sitting; Cuff Location: Left Arm; Cuff Size: Standard BP Diastolic 80 mm[Hg] Comments: Patient Position: Sitting; Cuff Location: Left Arm; Cuff Size: Standard Weight 139.375 lb Height 63 in Body Mass Index Calculated 24.69 kg/m2 Body Surface Area Calculated 1.66 m2 :44 Temperature 98.8 f Comments: Method: Oral Pulse 66 /min Comments: Pattern: Regular O2 SAT 98 % Comments: Room air BP Systolic 124 mm[Hg] Comments: Patient Position: Sitting; Cuff Location: Left Arm; Cuff Size: Standard BP Diastolic 70 mm[Hg] Comments: Patient Position: Sitting; Cuff Location: Left Arm; Cuff Size: Standard Weight 137 lb Height 63 in Body Mass Index Calculated 24.27 kg/m2 Body Surface Area Calculated 1.65 m2 :58 Temperature 97.6 f Comments: Method: Temporal Pulse 73 /min Comments: Pattern: Regular Respiration Rate 16 /min Comments: Pattern: Unlabored O2 SAT 98 % Comments: Room air BP Systolic 120 mm[Hg] Comments: Patient Position: Sitting; Cuff Location: Left Arm; Cuff Size: Standard BP Diastolic 70 mm[Hg] Comments: Patient Position: Sitting; Cuff Location: Left Arm; Cuff Size: Standard Weight 137 lb Height 63 in Body Mass Index Calculated 24.27 kg/m2 Body Surface Area Calculated 1.65 m2 :13 Temperature 97.6 f Comments: Method: Oral Pulse 72 /min Comments: Pattern: Regular Respiration Rate 18 /min Comments: Pattern: Unlabored BP Systolic 120 mm[Hg] Comments: Patient Position: Sitting; Cuff Location: Left Arm; Cuff Size: Standard BP Diastolic 78 mm[Hg] Comments: Patient Position: Sitting; Cuff Location: Left Arm; Cuff Size: Standard Weight 133 lb Height 63 in Body Mass Index Calculated 23.56 kg/m2 Body Surface Area Calculated 1.63 m2 :46 Temperature 97.6 f Comments: Method: Tympanic Pulse 80 /min Comments: Pattern: Regular Respiration Rate 16 /min Comments: Pattern: Unlabored BP Systolic 130 mm[Hg] Comments: Patient Position: Sitting; Cuff Location: Left Arm; Cuff Size: Large BP Diastolic 76 mm[Hg] Comments: Patient Position: Sitting; Cuff Location: Left Arm; Cuff Size: Large Weight 133.0625 lb Height 63 in Body Mass Index Calculated 23.57 kg/m2 Body Surface Area Calculated 1.63 m2 :49 Temperature 98.8 f Comments: Method: Oral Pulse 70 /min Comments: Pattern: Regular Respiration Rate 18 /min BP Systolic 134 mm[Hg] Comments: Patient Position: Sitting; Cuff Location: Left Arm; Cuff Size: Standard BP Diastolic 80 mm[Hg] Comments: Patient Position: Sitting; Cuff Location: Left Arm; Cuff Size: Standard Weight 127 lb Height 63 in Body Mass Index Calculated 22.5 kg/m2 Body Surface Area Calculated 1.59 m2 :32 Temperature 98.4 f Comments: Method: Oral Pulse 70 /min Comments: Pattern: Regular Respiration Rate 17 /min Comments: Pattern: Unlabored BP Systolic 122 mm[Hg] Comments: Patient Position: Sitting; Cuff Location: Left Arm; Cuff Size: Standard BP Diastolic 72 mm[Hg] Comments: Patient Position: Sitting; Cuff Location: Left Arm; Cuff Size: Standard Weight 127 lb Height 63 in Body Mass Index Calculated 22.5 kg/m2 Body Surface Area Calculated 1.59 m2 :18 Temperature 97.9 f Comments: Method: Oral Pulse 64 /min Comments: Pattern: Regular Respiration Rate 18 /min Comments: Pattern: Unlabored BP Systolic 118 mm[Hg] Comments: Patient Position: Sitting; Cuff Location: Left Arm; Cuff Size: Standard BP Diastolic 76 mm[Hg] Comments: Patient Position: Sitting; Cuff Location: Left Arm; Cuff Size: Standard Weight 127 lb Height 63 in Body Mass Index Calculated 22.5 kg/m2 Body Surface Area Calculated 1.59 m2 :55 Temperature 97.6 f Comments: Method: Oral Pulse 68 /min Comments: Pattern: Regular Respiration Rate 18 /min Comments: Pattern: Unlabored BP Systolic 124 mm[Hg] Comments: Patient Position: Sitting; Cuff Location: Left Arm; Cuff Size: Standard BP Diastolic 78 mm[Hg] Comments: Patient Position: Sitting; Cuff Location: Left Arm; Cuff Size: Standard Weight 127 lb Height 63 in Body Mass Index Calculated 22.5 kg/m2 Body Surface Area Calculated 1.59 m2 :07 Temperature 97.3 f Comments: Method: Oral Pulse 72 /min Comments: Pattern: Regular Respiration Rate 17 /min Comments: Pattern: Unlabored BP Systolic 120 mm[Hg] Comments: Patient Position: Sitting; Cuff Location: Left Arm; Cuff Size: Standard BP Diastolic 74 mm[Hg] Comments: Patient Position: Sitting; Cuff Location: Left Arm; Cuff Size: Standard Weight 136.0563 lb Height 63 in Body Mass Index Calculated 24.1 kg/m2 Body Surface Area Calculated 1.64 m2 :23 Pulse 70 /min Comments: Pattern: Regular Respiration Rate 18 /min Comments: Pattern: Unlabored BP Systolic 114 mm[Hg] Comments: Patient Position: Sitting; Cuff Location: Left Arm; Cuff Size: Standard BP Diastolic 78 mm[Hg] Comments: Patient Position: Sitting; Cuff Location: Left Arm; Cuff Size: Standard Weight 136.0563 lb :33 Temperature 97.8 f Comments: Method: Oral Pulse 68 /min Comments: Pattern: Regular Respiration Rate 16 /min Comments: Pattern: Unlabored BP Systolic 110 mm[Hg] Comments: Patient Position: Sitting; Cuff Location: Left Arm; Cuff Size: Standard BP Diastolic 72 mm[Hg] Comments: Patient Position: Sitting; Cuff Location: Left Arm; Cuff Size: Standard Weight 146 lb :09 Temperature 98.2 f Comments: Method: Oral Pulse 70 /min Comments: Pattern: Regular Respiration Rate 16 /min Comments: Pattern: Unlabored BP Systolic 120 mm[Hg] Comments: Patient Position: Sitting; Cuff Location: Left Arm; Cuff Size: Standard BP Diastolic 78 mm[Hg] Comments: Patient Position: Sitting; Cuff Location: Left Arm; Cuff Size: Standard Weight 0 lb Height 0 in Head Circumference 0.00 cm :58 Temperature 100.3 f Comments: Method: Oral Pulse 76 /min Comments: Pattern: Regular Respiration Rate 18 /min Comments: Pattern: Unlabored BP Systolic 118 mm[Hg] Comments: Patient Position: Sitting; Cuff Location: Left Arm; Cuff Size: Standard BP Diastolic 70 mm[Hg] Comments: Patient Position: Sitting; Cuff Location: Left Arm; Cuff Size: Standard Weight 0 lb Height 0 in Head Circumference 0.00 cm :32 Temperature 97.6 f Comments: Method: Oral Pulse 64 /min Comments: Pattern: Regular Respiration Rate 18 /min Comments: Pattern: Unlabored BP Systolic 110 mm[Hg] Comments: Patient Position: Sitting; Cuff Location: Left Arm; Cuff Size: Standard BP Diastolic 70 mm[Hg] Comments: Patient Position: Sitting; Cuff Location: Left Arm; Cuff Size: Standard Weight 146 lb Height 0 in Head Circumference 0.00 cm :52 Pulse 66 /min Comments: Pattern: Regular Respiration Rate 16 /min Comments: Pattern: Unlabored BP Systolic 108 mm[Hg] Comments: Patient Position: Sitting; Cuff Location: Left Arm; Cuff Size: Standard BP Diastolic 64 mm[Hg] Comments: Patient Position: Sitting; Cuff Location: Left Arm; Cuff Size: Standard Weight 130 lb Height 63 in Body Mass Index Calculated 23.03 kg/m2 Body Surface Area Calculated 1.61 m2 Head Circumference 0.00 cm :12 Temperature 98.2 f Comments: Method: Undefined Pulse 78 /min Comments: Pattern: Regular Respiration Rate 16 /min Comments: Pattern: Unlabored BP Systolic 130 mm[Hg] Comments: Patient Position: Sitting; Cuff Location: Left Arm; Cuff Size: Standard BP Diastolic 90 mm[Hg] Comments: Patient Position: Sitting; Cuff Location: Left Arm; Cuff Size: Standard Weight 130 lb Height 63 in Body Mass Index Calculated 23.03 kg/m2 Body Surface Area Calculated 1.61 m2 Head Circumference 0.00 cm :23 Temperature 97.6 f Comments: Method: Oral Pulse 72 /min Comments: Pattern: Regular Respiration Rate 20 /min Comments: Pattern: Unlabored BP Systolic 124 mm[Hg] Comments: Patient Position: Sitting; Cuff Location: Left Arm; Cuff Size: Standard BP Diastolic 80 mm[Hg] Comments: Patient Position: Sitting; Cuff Location: Left Arm; Cuff Size: Standard Weight 130 lb Height 63 in Body Mass Index Calculated 23.03 kg/m2 Body Surface Area Calculated 1.61 m2 Head Circumference 0.00 cm Results Date Description Value Details 7-Kyf-[id number]:25 D-Dimer Quantitative (DVT/PE) Comments: [facility] [address] [place], [place], [address] D-DIMER QUANT < 0.27 {FEU/ug/m} (Abnormal) Range: 0.27-0.49 Comments: NORMAL D-Dimer level (<0.50) indicates no DVT or PE. 35-Mod-540757:02 CALCIFIDIOL (78051) VIT D 25 Comments: PATIENT NOT FASTINGPERFORMED BY: [facility] Yrpzxw5536 [facility] [id number] Vitamin D, 25-Hydroxy 54.9 ng/mL (Normal) Range: 30.0-100.0 Comments: Vitamin D deficiency has been defined by the [place] of[place]icine and an Endocrine Society practice guideline as alevel of serum 25-OH vitamin D less than 20 ng/mL (1,2).The Endocrine Society went on to further define vitamin Dinsufficiency as a level between 21 and 29 ng/mL (2).1. IOM ([place] of Medicine). 2010. Dietary reference intakes for calcium and D. [place]: The National Academies Press.2. Kristi MF, Se NC, Sonia THURMAN, et al. Evaluation, treatment, and prevention of vitamin D deficiency: an Endocrine Society clinical practice guideline. JCEM. 2010; 96(7):1911-30. 00-Dtw-627106:02 Folate (47953) Comments: PATIENT NOT FASTINGPERFORMED BY: CB [facility] Orgcjt6510 [address]o RoadDublin [place] [id number] Folate (Folic Acid), Serum >20.0 ng/mL (Normal) Comments: A serum folate concentration of less than 3.1 ng/mL isconsidered to represent clinical deficiency. 75-Xyg-963983:02 VITAMIN B-12 (CYANOCOBALAMIN) Comments: PATIENT NOT FASTINGPERFORMED BY: CB [facility] Tgjfbt7441 [address]o RoadDublin [place] [id number] (12324) Vitamin B12 908 pg/mL (Normal) Range: 211-946 49-Tet-580611:02 TSH (51794) Comments: PATIENT NOT FASTINGPERFORMED BY: CB [facility] Pggkat0709 [address] RoadDublin [place] [id number] TSH 1.080 {uIU/mL} (Normal) Range: 0.450-4.500 :02 SED RATE ERYTHROCYTE (71969) Comments: PATIENT NOT FASTINGPERFORMED BY: CB [facility] Oswlsv2176 [address] RoadDublin [place] [id number] Sedimentation Rate-Westergren 3 mm/h (Normal) Range: 0-40 37-Qlu-748176:02 RHEUMATOID FACTOR-QUANT (29904) Comments: PATIENT NOT FASTINGPERFORMED BY: CB [facility] Gfesrf9577 [address] RoadDublin [place] [id number] RA Latex Turbid. 10.3 {IU/mL} (Normal) Range: 0.0-13.9 90-Ycn-119025:02 METABOLIC PANEL, COMPREHENSIVE Comments: PATIENT NOT FASTINGPERFORMED BY: CB [facility] Uxggha7001 [address] RoadDublin [place] [id number] (30524) ALT (SGPT) 10 [iU]/L (Normal) Range: 0-32 AST (SGOT) 16 [iU]/L (Normal) Range: 0-40 Alkaline Phosphatase, S 67 [iU]/L (Normal) Range: 39-117 Bilirubin, Total 0.3 mg/dL (Normal) Range: 0.0-1.2 A/G Ratio 1.8 (Normal) Range: 1.2-2.2 Globulin, Total 2.4 g/dL (Normal) Range: 1.5-4.5 Albumin, Serum 4.3 g/dL (Normal) Range: 3.6-4.8 Protein, Total, Serum 6.7 g/dL (Normal) Range: 6.0-8.5 Calcium, Serum 8.9 mg/dL (Normal) Range: 8.7-10.3 Carbon Dioxide, Total 24 mmol/L (Normal) Range: 18-29 Chloride, Serum 91 mmol/L (Abnormal) Range: 96-106 Potassium, Serum 4.1 mmol/L (Normal) Range: 3.5-5.2 Sodium, Serum 132 mmol/L (Abnormal) Range: 134-144 BUN/Creatinine Ratio 13 (Normal) Range: 12-28 eGFR If Africn Am 99 mL/min/1.73 (Normal) eGFR If NonAfricn Am 86 mL/min/1.73 (Normal) Creatinine, Serum 0.76 mg/dL (Normal) Range: 0.57-1.00 BUN 10 mg/dL (Normal) Range: 8-27 Glucose, Serum 87 mg/dL (Normal) Range: 65-99 49-Gek-093178:02 C-REACTIVE PROTEIN (76458) Comments: PATIENT NOT FASTINGPERFORMED BY: [facility] HospitalCnhnnk5821 [facility] [id number] C-Reactive Protein, Quant 1.8 mg/L (Normal) Range: 0.0-4.9 60-Uxa-388747:02 ISIDORO (ANTINUCLEAR ANTIBODY) Comments: PATIENT NOT FASTINGPERFORMED BY: [place] 6844170 [facility] [id number] (91470) ISIDORO Direct Negative (Normal) 29-Nbx-462727:02 CBC (AUTO) (63295) Comments: PATIENT NOT FASTINGPERFORMED BY: [facility]6370 [facility] [id number] Platelets 357 {x10E3/uL} (Normal) Range: 150-379 RDW 14.5 % (Normal) Range: 12.3-15.4 MCHC 33.0 g/dL (Normal) Range: 31.5-35.7 MCH 32.2 pg (Normal) Range: 26.6-33.0 MCV 98 fL (Abnormal) Range: 79-97 Hematocrit 35.5 % (Normal) Range: 34.0-46.6 Hemoglobin 11.7 g/dL (Normal) Range: 11.1-15.9 RBC 3.63 {x10E6/uL} (Abnormal) Range: 3.77-5.28 WBC 5.4 {x10E3/uL} (Normal) Range: 3.4-10.8 59-Hgi-39630:18 THROAT CULTURE (31063) Comments: PATIENT NOT FASTINGPERFORMED BY: [facility]6370 [facility] [id number] Information: SRC: Result 1 RRF (Normal) Comments: Routine respiratory rahul Upper Respiratory Culture Final report (Normal) 22-Jmr-849408:14 Rapid Strep Test, Office (89650) Rapid Strep Test, Office Negative (Normal) 98-Idi-343570:44 Basic Metabolic Profile (BMP) Comments: [facility] [address] [place], [address] GAP 9 (Normal) Range: 5-15 CO2 29.0 mmol/L (Normal) Range: 21.0-32.0 CL 93 mmol/L (Abnormal) Range: 98-107 K 4.1 mmol/L (Normal) Range: 3.5-5.1 NA 131 mmol/L (Abnormal) Range: 136-145 CA 8.5 mg/dL (Normal) Range: 8.5-10.1 BUN/CRE 17.9 {RATIO} (Normal) Range: 10-20 EST GFR - AA 105 mL/min (Normal) Comments: GFR Calc EST GFR 87 mL/min (Normal) Comments: Non- GFR Calc CREAT,SERUM 0.73 mg/dL (Normal) Range: 0.55-1.02 Comments: The validity of the calculated GFR AND GFRAA in patients over70 years has not been determined. Clinical correlation isessential. BUN 13 mg/dL (Normal) Range: 7-18 GLU 84 mg/dL (Normal) Range: 70-110 02-Emd-911513:44 CBC-Complete Blood Cnt No Diff Comments: [facility] [address] [place], [address] MPV 7.8 fL (Normal) Range: 6.2-12.0 PLT 321 K/mm3 (Normal) Range: 150-450 RDW SD 41.5 fL (Normal) Range: 35.1-43.9 RDW CV 12.5 % (Normal) Range: 11.6-14.6 MCHC 33.4 {g/gl} (Normal) Range: 32-36 MCH 31.4 pg (Normal) Range: 27.0-32.0 MCV 93.9 fL (Normal) Range: 81-99 HCT 35.3 % (Abnormal) Range: 37-47 HGB 11.8 g/dL (Abnormal) Range: 12.0-15.0 RBC 3.76 {M/mm3} (Abnormal) Range: 4.2-5.4 WBC 5.8 K/mm3 (Normal) Range: 4.4-11.0 :27 TSH (54943) Comments: PERFORMED BY: [facility] [id number] TSH 2.380 {uIU/mL} (Normal) Range: 0.450-4.500 :27 T4, FREE (THYROXINE) Comments: PERFORMED BY: [employer] [address] [place] [address] [id number] Information: [id number] (41443) T4,Free(Direct) 1.48 ng/dL (Normal) Range: 0.82-1.77 :27 T3, FREE (TRIDOTHYRONINE) (01766) Comments: PERFORMED BY: [employer] Sqxnrc7390 [facility] [id number] Triiodothyronine,Free,Serum 2.3 pg/mL (Normal) Range: 2.0-4.4 65-Bxc-01021:00 ,Urine Comments: [facility] [address] [place], [id number] HCGUQUAL Negative {Negative} (Normal) Comments: Very dilute urine specimens, as indicated by a low specificgravity, may not contain reimbursement representative levels of hCG.If is still suspected, a first morning urinespecimen should be collected 48 hours later and tested. 0-Uym-354315:31 CBC-Complete Blood Cnt No Diff Comments: [facility] [address]ws[address] [place], [phone] MPV 7.8 fL (Normal) Range: 6.2-12.0 PLT 313 K/mm3 (Normal) Range: 150-450 RDW SD 45.1 fL (Abnormal) Range: 35.1-43.9 RDW CV 13.2 % (Normal) Range: 11.6-14.6 MCHC 34.0 {g/gl} (Normal) Range: 32-36 MCH 32.0 pg (Normal) Range: 27.0-32.0 MCV 93.9 fL (Normal) Range: 81-99 HCT 38.5 % (Normal) Range: 37-47 HGB 13.1 g/dL (Normal) Range: 12.0-15.0 RBC 4.10 {M/mm3} (Abnormal) Range: 4.2-5.4 WBC 5.2 K/mm3 (Normal) Range: 4.4-11.0 :31 Comprehensive Metabolic Profil Comments: [facility] [address] [place], [phone] GAP 1 (Abnormal) Range: 5-15 CO2 30.0 mmol/L (Normal) Range: 21.0-32.0 CL 98 mmol/L (Normal) Range: 98-107 K 4.0 mmol/L (Normal) Range: 3.5-5.1 NA 129 mmol/L (Abnormal) Range: 136-145 T BILI 0.30 mg/dL (Normal) Range: 0.20-1.00 ALT 23 U/L (Normal) Range: 12-78 ALK P 72 U/L (Normal) Range: 50-136 AST 17 U/L (Normal) Range: 15-37 CA 8.6 mg/dL (Normal) Range: 8.5-10.1 A/G 1.0 {RATIO} (Normal) Range: 0.9-2.4 GLOB 3.8 g/dL (Abnormal) Range: 2.3-3.5 ALB 3.9 g/dL (Normal) Range: 3.4-5.0 T PROT 7.7 g/dL (Normal) Range: 6.4-8.2 BUN/CRE 17.0 {RATIO} (Normal) Range: 10-20 EST GFR - AA 91 mL/min (Normal) Comments: GFR Calc EST GFR 76 mL/min (Normal) Comments: Non- GFR Calc CREAT,SERUM 0.82 mg/dL (Normal) Range: 0.55-1.20 Comments: The validity of the calculated GFR AND GFRAA in patients over70 years has not been determined. Clinical correlation isessential. BUN 14 mg/dL (Normal) Range: 7-18 GLU 91 mg/dL (Normal) Range: 70-110 3-Gew-228427:31 Partial Thromboplast Time Comments: [facility] [address] [place], [place], [phone] PTT 28.1 s (Normal) Range: 24.1-36.2 3-Mmp-066797:31 ,Serum,hCG Quali. Comments: [facility] [address] [place], [place], [id number] HCGSQUAL NEGATIVE {Negative} (Normal) Range: 0-9 Nonpreg HCG Qual triggr 1 m[iU]/mL (Normal) 6-Vln-105939:31 Prothrombin Time w/INR Comments: [facility] [address] [place], [address] INR 0.8 (Normal) PROTIME 11.4 s (Abnormal) Range: 11.7-14.9 4-Rua-643572:31 Type AND Screen Comments: Surgery Date: 06/30/15Hx of Preganancy in last 3 Months NoEver experience any problems with transfusion(s)? NHx of Transfusion in last 3 Months NReason for Type AND Screen/Red Cells: SURGERYSURGI JOSE RAUL PROCEDURE: [facility] [address] [place], [place], [phone] Antibody Screen NEGATIVE (Normal) BLOOD TYPE GEL B POSITIVE (Normal) 55-Evp-711349:24 Metabolic Panel, Comments: PATIENT NOT FASTINGPERFORMED BY: [facility] [id number] Information: [id number] Comprehensive (64471) ALT (SGPT) 11 [iU]/L (Normal) Range: 0-32 AST (SGOT) 15 [iU]/L (Normal) Range: 0-40 Alkaline Phosphatase, S 66 [iU]/L (Normal) Range: 39-117 Bilirubin, Total 0.7 mg/dL (Normal) Range: 0.0-1.2 A/G Ratio 1.7 (Normal) Range: 1.1-2.5 Globulin, Total 2.8 g/dL (Normal) Range: 1.5-4.5 Albumin, Serum 4.7 g/dL (Normal) Range: 3.5-5.5 Protein, Total, Serum 7.5 g/dL (Normal) Range: 6.0-8.5 Calcium, Serum 9.5 mg/dL (Normal) Range: 8.7-10.2 Carbon Dioxide, Total 23 mmol/L (Normal) Range: 18-29 Chloride, Serum 96 mmol/L (Abnormal) Range: 97-108 Potassium, Serum 5.1 mmol/L (Normal) Range: 3.5-5.2 Sodium, Serum 135 mmol/L (Normal) Range: 134-144 BUN/Creatinine Ratio 8 (Abnormal) Range: 9-23 eGFR If Africn Am 95 mL/min/1.73 (Normal) eGFR If NonAfricn Am 83 mL/min/1.73 (Normal) Creatinine, Serum 0.79 mg/dL (Normal) Range: 0.57-1.00 BUN 6 mg/dL (Normal) Range: 6-24 Glucose, Serum 96 mg/dL (Normal) Range: 65-99 02-Vfu-402305:24 CALCIFEDIOL (14365) Comments: PATIENT NOT FASTINGPERFORMED BY: [facility] [id number] Vitamin D, 25-Hydroxy 33.1 ng/mL (Normal) Range: 30.0-100.0 Comments: Vitamin D deficiency has been defined by the [place] of[place]icine and an Endocrine Society practice guideline as alevel of serum 25-OH vitamin D less than 20 ng/mL (1,2).The Endocrine Society went on to further define vitamin Dinsufficiency as a level between 21 and 29 ng/mL (2).1. IOM ([place] of [employer]). 2010. Dietary reference intakes for calcium and D. [place]: The National AcademGraphic [place] Press.2. Kristi MF, Se [place], Sonia THURMAN, et al. Evaluation, treatment, and prevention of vitamin D deficiency: an Endocrine Society clinical practice guideline. JCEM. 2010; 96(7):1911-30. :24 T4, TOTAL (22900) Comments: PATIENT NOT FASTINGPERFORMED BY: [facility] Jtcvvl4239 [facility] [id number] Thyroxine (T4) 7.8 ug/dL (Normal) Range: 4.5-12.0 :24 T3, FREE (TRIDOTHYRONINE) (83776) Comments: PATIENT NOT FASTINGPERFORMED BY: [facility] Zewcbz4[address] [facility] [id number] Triiodothyronine,Free,Serum 2.3 pg/mL (Normal) Range: 2.0-4.4 :24 TSH (05716) Comments: PATIENT NOT FASTINGPERFORMED BY: [facility] Tiqnrk4215 [facility] [id number] TSH 1.290 {uIU/mL} (Normal) Range: 0.450-4.500 :31 Rapid Flu (21969 x 2) Influenza A Ag negative (Normal) Comments: neg for A and B :59 TSH (70132) Comments: all labs to Dr. dereck weinstein; PATIENT NOT FASTINGPERFORMED BY: [facility] Eibwui6589 [facility] [id number] TSH 0.808 {uIU/mL} (Normal) Range: 0.450-4.500 :59 PTT (Activated Partial Comments: PATIENT NOT FASTINGPERFORMED BY: [place] 9548670 [facility] [id number] Thromboplastin Time) (69868) aPTT 29 {sec} (Normal) Range: 24-33 Comments: This test has not been validated for monitoring unfractionated heparintherapy. aPTT-based therapeutic ranges for unfractionated heparintherapy have not been established. For general guidelines onHeparin monitoring, refer to the [facility] Directory of Services. :59 PT (Prothrobim Time) (17333) Comments: PATIENT NOT FASTINGPERFORMED BY: [facility]6370 [facility] [id number] Prothrombin Time 10.0 {sec} (Normal) Range: 9.1-12.0 INR 1.0 (Normal) Range: 0.8-1.2 Comments: Reference interval is for non-anticoagulated patients. . Suggested INR therapeutic range for Vitamin K anta gonist therapy: Standard Dose (moderate intensity therapeutic range): 2.0 - 3.0 Higher intensity therapeutic range 2.5 - 3.5 :59 CBC with auto diff Comments: PATIENT NOT FASTINGPERFORMED BY: [facility]6370 [facility] [id number] Information: [id number] (41358) Immature Grans (Abs) 0.0 {x10E3/uL} (Normal) Range: 0.0-0.1 Immature Granulocytes 0 % (Normal) Baso (Absolute) 0.0 {x10E3/uL} (Normal) Range: 0.0-0.2 Eos (Absolute) 0.1 {x10E3/uL} (Normal) Range: 0.0-0.4 Monocytes(Absolute) 0.6 {x10E3/uL} (Normal) Range: 0.1-0.9 Lymphs (Absolute) 2.8 {x10E3/uL} (Normal) Range: 0.7-3.1 Neutrophils (Absolute) 3.7 {x10E3/uL} (Normal) Range: 1.4-7.0 Basos 0 % (Normal) Eos 1 % (Normal) Monocytes 8 % (Normal) Lymphs 38 % (Normal) Neutrophils 53 % (Normal) Platelets 357 {x10E3/uL} (Normal) Range: 150-379 RDW 13.4 % (Normal) Range: 12.3-15.4 MCHC 33.3 g/dL (Normal) Range: 31.5-35.7 MCH 31.3 pg (Normal) Range: 26.6-33.0 MCV 94 fL (Normal) Range: 79-97 Hematocrit 37.8 % (Normal) Range: 34.0-46.6 Hemoglobin 12.6 g/dL (Normal) Range: 11.1-15.9 RBC 4.03 {x10E6/uL} (Normal) Range: 3.77-5.28 WBC 7.2 {x10E3/uL} (Normal) Range: 3.4-10.8 63-Etf-383931:59 T4, FREE (THYROXINE) (53710) Comments: PATIENT NOT FASTINGPERFORMED BY: [facility] Lxmunv1616 [facility] [id number] T4,Free(Direct) 1.31 ng/dL (Normal) Range: 0.82-1.77 :58 TSH 2.88 {uIU/mL} (Normal) Range: 0.358-3.74 60-Hhu-009049:18 Pathology Report Comments: PERFORMED BY: [employer] [facility] [place] Vtqf27385 [facility] [id number] Information: [id number] See MATER Comments: Material submitted: .CATHY BX RT CHEEKClinical history: .SK. 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 - SMALL INTRADERMAL MELANOCYTIC NEVUS IS ALSO NOTED..COMMENT:- SINCE THE B ELLEN ASPECT OF THIS ATYPICAL SKIN LESION IS ONLY PARTIALLY REPRESENTED, A RE-EXCISION IS RECOMMENDED.SKYLAR/02/13/2013Electronically s igned: .Clinton Castaneda MD, PathologistGross description: .1 Container, formalin- filled, labeled with patient identification.SHA VE BX RT CHEEK:Received in formalin labeled KARLA FOURNIER is a clinton-yellow fragmentof skin measuring 0.8 x 0.6 x 0.2 cm.The margin is marked with purpleink.It is trisected and submitted entirely in a s komal cassette./LMSLMS/LMSPathologist provided ICD-9:702.11, 216.3CPT .470433 57-Oko-418546:56 TSH ([id number]) Comments: PATIENT NOT FASTINGPERFORMED BY: [facility] [id number] [facility] [id number] Information: [id number] TSH 0.602 {uIU/mL} (Normal) Range: 0.450-4.500 :52 TSH (THYROID STIMULATING Comments: PATIENT NOT FASTINGPERFORMED BY: [facility] [id number] [facility] [id number] BY: [facility] [id number] Information: [id number] HORMONE) (84776) TSH 5.450 {uIU/mL} (Abnormal) Range: 0.450-4.500 :52 OSMOLALITY BLOOD (52097) Comments: PATIENT NOT FASTINGPERFORMED BY: [facility] Uaqxoq3964 [facility] [id number] BY: [address] [id number] Osmolality 276 {mOsmol/kg} (Normal) Range: 275-295 :52 SODIUM SERUM (53591) Comments: PATIENT NOT FASTINGPERFORMED BY: SERGE [facility] [id number] [facility] [id number] BY: NANDO [facility] Icloocprtt7119 [facility] [id number] Sodium, Serum 134 mmol/L (Normal) Range: 134-144 : T4F 0.95 ng/dL (Normal) Range: 0.76-1.46 : TSH 2.12 {uIU/mL} (Normal) Range: 0.358-3.74 :52 ABDOMEN/PELVIS WITHOUT CONT Radiology Report See Note (Normal) Comments: PROCEDURE: CT ABDOMEN AND PELVIS WITHOUT CONTRAST REASON FOR EXAM: Female, 56 years old. Right flank pain and hematuria. RADIATION DOSAGE (If Supplied By Facility): CTDIvol = ( 6.37 ) mGy, DLP=( 28 8.35 ) mGycm TECHNIQUE: Transaxial images were obtained from the dome of thediaphragmto the symphysis pubis without oral contrast, and without intravenouscontrast. Multiplanar coronal and sagittal im ages were reformatted.Thisexamination is limited for the evaluation of solid organs and vascularstructures due to the lack of intravenous contrast. COMPARISON: Comparison is made with prior study date d October 31, 2010. FINDINGS:The visualized lung bases are unremarkable. Normal unenhanced liver. Normal gallbladder and extrahepatic biliarysystem. Normal unenhanced spleen. Normal pancreas. There is a small, circumscribed, smooth, low attenuation left adrenalmass,consistent with an adrenal adenoma. This is unchanged. Normal rightadrenal gland. Normal size of the right kidney. There is no right [place] al mass. Thereareno right renal calculi. There is mild hydronephrosis of the rightkidney.There is a ureteral calculus at the right ureterovesicle junction (UVJ).It measures 4 mm. Normal size of the le ft kidney. There is no left renal mass. There arenoleft renal calculi. There is no left hydronephrosis. Normal visualizedleft ureter. Normal visualized stomach. Normal small intestine. Normal colo n. Theappendix is visualized and appears normal. There is no demonstrated peritoneal fluid. There is diffuse atherosclerotic calcification of the abdominal aorta,without a demonstrated aneurysm. Nina l inferior vena cava. Normalretroperitoneum. Normal urinary bladder. There is no pelvic mass lesion orlymphadenopathy.There is no pelvic fluid. There is a small umbilical hernia containing fat. Nina l osseousstructures. IMPRESSION:4-mm calculus at the right ureterovesical junction causing a mild degreeofright hydronephrosis. Signed:Rocky Lunsford M.D.February 13, 2012 at 10:34:07 AM [id number] [id number] Signed GP/GP If you are the referring physician and would like to consult with theradiologist who provided this interpretation, please contact Nyasia Pollard at [phone]. If this radiologist is unavailable, youwill be directed to another radiologist to assist. If you are a patient with a question regarding this report, pleasecontactyour referring physician directly. Prof essional Interpretation Provided By: [employer], Phone , These documents contain legally protected and confidential healthinformation intended only for the use of the aimee vidual or entity namedabove. If you are not the intended recipient, you are hereby notifiedthatany disclosure, copying, distribution, or other use of these documents isstrictly prohibited. If you have r eceived this information in error,pleasenotify the sender immediately and arrange for the return or destructionofthese documents. Dictated on 02/13/12 0955 by Kaycee Lunsford MDribed on 01/17 01/27 1118 by ITS IMPORTSign by Rocky Lunsford MD on 02/13/12 1119 Sign by: Rocky Lunsford MD 22-Dka-33091:32 Urinalysis, Office ([id number]) UA - BILIRUBIN Negative (Normal) UA - BLOOD Hemolyzed Small (Normal) UA - GLUCOSE Negative (Normal) UA - KETONES Negative mg/dL (Normal) UA - LEUKOCYTE ESTERASE Negative (Normal) UA - NITRITE Negative (Normal) UA - PH 7.0 (Normal) UA - PROTEIN Negative mg/dL (Normal) UA - SPECIFIC GRAVITY 1.010 (Normal) URINE UROBILINGN TRISTAN Normal mg/dL (Normal) TIMED : T4F 1.07 ng/dL (Normal) Range: 0.76-1.46 45 : TSH 1.05 {uIU/mL} (Normal) Range: 0.358-3.74 45 :4 T4 FREE DIRECT 0.73 ng/dL (Abnormal) Range: 0.76-1.46 5 :4 TSH 5.53 {uIU/mL} Range: 0.358-3.74 5 (Abnormal) : T4 THYROXIN 8.6 ug/dL (Normal) Comments: appt 04/24/11 25 Range: 4.8-13.9 : TPO AB 6676 1596 {IU/mL} Range: 0-34 25 (Abnormal) Comments: Results confirmed ondilution.Performed at: - [id number] Director: Jeaneth Smallwood MD, Phone: [phone] : TSH 2.83 {uIU/mL} (Normal) Range: 0.358-3.74 25 : T4 THYROXIN 6.8 ug/dL (Normal) Comments: ADD T3 AND T4 PER SHANE AT OFFICE 40 Range: 4.8-13.9 : T3 TOTAL 1.0 ng/mL (Normal) Comments: ADD T3 AND T4 PER SHANE AT OFFICE 40 Range: 0.7-1.9 : TSH 5.06 {uIU/mL} Range: 0.358-3.74 06 (Abnormal) :01 ABDOMEN/PELVIS WITHOUT CONT Radiology Report See Note (Normal) Comments: CLINICAL:Female, 55 years old. The patient presented with right flank pain andmicrohematuria. CT ABDOMEN AND PELVIS WITHOUT CONTRAST TECHNIQUE:Transaxial images were obtained from the dome of the diaph ragm to thesymphysis pubis without oral contrast, and without intravenous contrast.Multiplanar coronal and sagittal images were reformatted. Thisexaminationis limited for the evaluation of solid organs and vascular structures dueto the lack of intravenous contrast. COMPARISON:None. FINDINGS:The visualized lung bases are unremarkable. Normal unenhanced liver. Normal gallbladder and extrahepatic bilia rysystem. Normal unenhanced spleen. Normal pancreas. There is a small, circumscribed, smooth, low attenuation left adrenalmass,consistent with an adrenal adenoma. It measures 8.6 mm. Normal rightadren al gland. Normal size of the right kidney. There is no right renal mass. Thereareno right renal calculi. There is mild hydronephrosis of the rightkidney.There is a right ureteral calculus in the dist al 1/3 of the ureter. Itmeasures 4 mm. Normal size of the left kidney. There is no left renal mass. There arenoleft renal calculi. There is no left hydronephrosis. Normal visualizedleft ureter. Nor mal visualized stomach. Normal small intestine. Normal colon. Theappendix is visualized and appears normal. There is no demonstrated peritoneal fluid. There is diffuse atherosclerotic calcification o f the abdominal aorta,without a demonstrated aneurysm. Normal inferior vena cava. Normalretroperitoneum. Normal urinary bladder. There is no pelvic mass lesion orlymphadenopathy.There is no pelvic fl uid. Normal abdominal wall. Normal osseous structures. IMPRESSION:There is a 4-mm calculus in the distal portion of the right uretercausinga mild degree of right-sided hydronephrosis. Dictated on 0907 by Debbie Lunsford MDeleTranscribed on 10/31/10 1030 by ITS IMPORTSign by Rocky Lunsford MD on 10/31/10 1030 Sign by: _ Rocky Lunsford MD 41-Ggx-29367:03 Urinalysis, Office ([id number]) UA - BILIRUBIN Negative (Normal) UA - BLOOD Hemolyzed Trace (Normal) UA - GLUCOSE Negative (Normal) UA - KETONES Negative mg/dL (Normal) UA - LEUKOCYTE ESTERASE Negative (Normal) UA - NITRITE Negative (Normal) UA - PH 6.0 (Normal) UA - PROTEIN Negative mg/dL (Normal) UA - SPECIFIC GRAVITY 1.015 (Normal) URINE UROBILINGN TRISTAN TIMED Normal mg/dL (Normal) 7-Gxh-296857:12 Urinalysis, Office ([id number]) UA - BILIRUBIN Negative (Normal) UA - BLOOD Non Hemolyzed Moderate (Normal) UA - GLUCOSE Negative (Normal) UA - KETONES Negative mg/dL (Normal) UA - LEUKOCYTE ESTERASE Small (Normal) UA - NITRITE Negative (Normal) UA - PH 6.0 (Normal) UA - PROTEIN Negative mg/dL (Normal) UA - SPECIFIC GRAVITY 1.015 (Normal) URINE UROBILINGN TRISTAN 2 mg/dL (Normal) TIMED 46-Bsr-065318: FLU A+B DIRECT See Note (Normal) Comments: Negative test results should be confirmed by culture. Order Rapid Viral Culture for Influenzae A+B ([id number]) if clinically indicated. INFLUENZA ANTIGEN,DIRECT Presumptive NEGATIVE for Influenza A/B Antigen (See Note) 23 37-Daa-466919:03 INFLUENZA IMMUNOASSY DIRECT Comments: call results to Dr. mireles!!!!!!!!!! OPTICAL OBSERV ([id number]) INFLUENZA IMMUNOASSY DIRECT OPTICAL OBSERV neg (Normal) 34-Jsd-469315:31 LIPID CHOL 188 mg/dL (Normal) Comments: <200 mg/dL Desirable 200-240 mg/dL Borderline >240 mg/dL High Risk HDL 57 mg/dL (Normal) Comments: Reference Range HDL <40 mg/dL Low HDL Cholesterol HDL >or= 60 mg/dL High HDL Cholesterol LDL 108 mg/dL (Normal) Range: 0-130 TRIG 114 mg/dL (Normal) Comments: Serum Triglycerides Reference Interval Normal <150 mg/dL Borderline high 150 - 199 mg/dL High 200 - 499 mg/dL Very High > or = 500 mg/dL VLDL 23 mg/dL (Normal) Range: 5-40 23-Tek-425183:31 TSH 2.45 {uIU/mL} (Normal) Range: 0.34-4.82 Plan of Care Name Dates Details Instructions Compression fracture of thoracic spine, non-traumatic : Reviewed Diagnostic Tests Indication: Compression fracture of thoracic spine, non-traumatic Osteopenia of spine : Reviewed Diagnostic Tests Indication: Osteopenia of spine Acute bilateral thoracic back pain : Reviewed Lab Indication: Acute bilateral thoracic back pain Acute bilateral thoracic back pain : Reviewed Diagnostic Tests Indication: Acute bilateral thoracic back pain Nonsmoker : Eprescribed prescriptions (G8553) Indication: Nonsmoker Depression, acute : Follow up in 4 weeks Indication: Depression, acute Sore throat : Follow up if no improvement or if symptoms worsen Indication: Sore throat Sore throat : Strep Throat: pharyngitis Indication: Sore throat Sore throat : Eprescribed prescriptions (G8553) Indication: Sore throat Nonsmoker : Follow up if no improvement or if symptoms worsen Indication: Nonsmoker Earache : Eprescribed prescriptions (G8553) Indication: Earache Shoulder impingement, left : Continue Current Prescription(s) Indication: Shoulder impingement, left Acute pain of left shoulder : Follow up in 1 month Indication: Acute pain of left shoulder Hypothyroidism : Follow up in 1 year or as needed Indication: Hypothyroidism S/P hysterectomy : Talking to Your Health Care Provider: physician Indication: S/P hysterectomy S/P hysterectomy : Eprescribed prescriptions (G8553) Indication: S/P hysterectomy Anxiety : Follow up in 3 months with DB Indication: Anxiety Anxiety : Reviewed Lab Indication: Anxiety Anxiety : Reviewed Diagnostic Tests Indication: Anxiety Anxiety : Follow up in 3 weeks Indication: Anxiety Myalgia : Eprescribed prescriptions (G8553) Indication: Myalgia Hypothyroidism : Eprescribed prescriptions (G8553) Indication: Hypothyroidism Pain of mid back : Follow up if no improvement or if symptoms worsen Indication: Pain of mid back Hypothyroidism : Eprescribed prescriptions (G8553) Indication: Hypothyroidism Neoplasm of uncertain behavior of skin : Shave Biopsy with Epi Indication: Neoplasm of uncertain behavior of skin Low back pain : Follow up in 3 days Indication: Low back pain Low back pain : follow up for recheck urine 1 week after complete antibiotic Indication: Low back pain Dysuria : UTI treatment Indication: Dysuria Planned Observations D-Dimer (14542)Indication: Acute bilateral thoracic back pain On: 58-Mgg-307470:42 Request CALCIFEDIOL (30351)Indication: Anxiety On: 86-Cbh-51518:53 Request TSH (29326)Indication: Hypothyroidism On: 97-Cgt-369686:57 Request T4, FREE (THYROXINE) (71459)Indication: Abnormal TSH On: 36-Mle-210016:28 Request TSH (71313)Indication: Abnormal TSH On: 31-Hxc-828893:28 Request CALCULUS CHEMICAL QUANTI (05663)Indication: Hematuria, unspecified On: :07 Request T4, FREE (THYROXINE) (00998)Indication: Abnormal TSH On: :26 Request TSH (97159)Indication: Abnormal TSH On: :26 Request T4, TOTAL (65284)Indication: Abnormal TSH On: :30 Request Anti-TPO Antibody (98669)Indication: Abnormal TSH On: :30 Request TSH (77349)Indication: Abnormal TSH On: :30 Request T4, TOTAL (47254)Indication: Other specified abnormal findings of blood chemistry On: :52 Request Comments: add on lab T3, TOTAL (TRIDOTHYRONINE) (38484)Indication: Other specified abnormal findings of blood chemistry On: :52 Request Comments: add on lab TSH (THYROID STIMULATING HORMONE) (33630)Indication: Depression On: 6-Fzy-872239:47 Request Rapid Flu (46106 x 2)Indication: Fever On: 07-Tso-319776:21 Request Planned Procedures MRI THORACIC SPINE W/O CONTRST On: 22-Oct-2017 Intent (77198)By: Winnie Eid DO Comments: send results to dr bower as Winnie tran DO CXR PA & LAT (15653)By: Ragini LAZO, On: 15-Oct-2017 Intent Winnie Sebastian DO Radiology - Thoracic SpineBy: Ragini On: 15-Oct-2017 Winnie Robles DO, DO, Kathleen X-RAY OF SHOULDER, AP VIEW ([id number])By: On: 30-Mar-2016 Intent Winnie Eid DO, DO, Kathleen Holter Monitor 24 hrsBy: Sam CHOWDHURY, On: 31-May-2015 Intent iTta Elam Toradol Injection, 30 mg ([id number])By: On: 14-Sep-2014 Intent Winnie Eid DO, DO, Comments: lot [id number] 2.1.1730 mgleft 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, 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 Radiology - Cervical SpineBy: Ragini On: 14-Sep-2014 Intent Winnie LAZO DO, Kathleen Toradol Injection, 30 mg ([id number])By: On: 30-Mar-2014 Intent Tita Vargas CNP Comments: Lot:[id number]:08/17/15Dose:30mgRoute:imSite:r hipGiven By:SHANTELL signed Toradol Injection, 30 mg ([id number])By: On: 25-Nov-2013 Intent Katelynn Manzanares MD Comments: Lot:[id number]:05/18/2015Dose:30mgRoute:imSite:r hipGiven By:SHANTELL signed EKG ([id number])By: Katelynn Manzanares MD On: 25-Nov-2013 Intent Comments: see scanned document of test done to see results reviewed today with patient CT - Abdomen & Pelvis Stone On: 13-Feb-2012 Intent ProtocolBy: Tita Vargas CNP Comments: call wet reading to [facility], dc to tell pt result CT - Abdomen & Pelvis Stone On: 31-Oct-2010 Intent ProtocolBy: Tita Vargas CNP Comments: call results to Duglas Vargas Eprescribed prescriptions (G8553)By: On: 31-Oct-2010 Intent Tita Vargas CNP Planned Medications INJECTION, KETOROLAC TROMETHAMINE, PER 15 MG Ordered: 25-Nov-2013 Pending Katelynn Manzanares MD INJECTION, KETOROLAC TROMETHAMINE, PER 15 MG Ordered: 30-Mar-2014 Pending Tita Vargas CNP INJECTION, KETOROLAC TROMETHAMINE, PER 15 MG Ordered: 14-Sep-2014 Pending Winnie Eid DO, DO, Kathleen Instructions Name Dates Details Nonsmoker : How to access health information online Indication: Nonsmoker Nonsmoker : How to access health information online - Detail Indication: Nonsmoker Nonsmoker : Patient Instructions Indication: Nonsmoker Tobacco abuse, in remission (Renamed from Tobacco dependence in remission) : How to access health information online Indication: Tobacco abuse, in remission (Renamed from Tobacco dependence in remission) Tobacco abuse, in remission (Renamed from Tobacco dependence in remission) : How to access health information online - Detail Indication: Tobacco abuse, in remission (Renamed from Tobacco dependence in remission) Tobacco abuse, in remission (Renamed from Tobacco dependence in remission) : Patient Instructions Indication: Tobacco abuse, in remission (Renamed from Tobacco dependence in remission) Nonsmoker : How to access health information online Indication: Nonsmoker Nonsmoker : How to access health information online - Detail Indication: Nonsmoker Nonsmoker : Patient Instructions Indication: Nonsmoker BMI between 19-24,adult : How to access health information online Indication: BMI between 19-24,adult BMI between 19-24,adult : How to access health information online - Detail Indication: BMI between 19-24,adult BMI between 19-24,adult : Patient Instructions Indication: BMI between 19-24,adult Sore throat : How to access health information online Indication: Sore throat Sore throat : How to access health information online - Detail Indication: Sore throat Sore throat : Patient Instructions Indication: Sore throat Earache : How to access health information online Indication: Earache Earache : How to access health information online - Detail Indication: Earache Earache : Patient Instructions Indication: Earache Shoulder impingement, left : How to access health information online Indication: Shoulder impingement, left Shoulder impingement, left : How to access health information online - Detail Indication: Shoulder impingement, left Shoulder impingement, left : Patient Instructions Indication: Shoulder impingement, left S/P hysterectomy : How to access health information online Indication: S/P hysterectomy S/P hysterectomy : How to access health information online - Detail Indication: S/P hysterectomy S/P hysterectomy : Patient Instructions Indication: S/P hysterectomy Myalgia : How to access health information online Indication: Myalgia Myalgia : How to access health information online - Detail Indication: Myalgia Myalgia : Patient Instructions Indication: Myalgia Hypothyroidism : How to access health information online Indication: Hypothyroidism Hypothyroidism : How to access health information online - Detail Indication: Hypothyroidism Hypothyroidism : Patient Instructions Indication: Hypothyroidism Hypothyroidism : Patient Instructions Indication: Hypothyroidism Calcium kidney stone : Patient Instructions Indication: Calcium kidney stone Encounters Office Visit On: 05-Nov-2017 15:28 Encounter Reason: Follow up tests - Date: (MRI 10/30/17).Encounter Diagnosis: BMI between 19-24,adult, Nonsmoker, Compression fracture of thoracic spine, non- traumatic, Osteopenia of spine End: 05-Nov-2017 16:30 [facility] Office Visit On: 22-Oct-2017 16:10 Encounter Reason: Follow up tests - Date: (10/16/17).Encounter Diagnosis: BMI between 19-24,adult, Tobacco abuse, in remission (Renamed from Tobacco dependence in remission), Abnormal x-ray of thoracic spine, End: 22-Oct-2017 16:38 Compression fracture of thoracic spine, non-traumatic, Acute bilateral thoracic back pain, Osteopenia of spine [facility] Office Visit On: 15-Oct-2017 15:44 Encounter Diagnosis: BMI between 19-24,adult, Nonsmoker, Acute bilateral thoracic back pain End: 15-Oct-2017 16:45 [facility] Office Visit On: 28-May-2017 10:48 Encounter Reason: Depression - The onset of the depression has been sudden and has been occurring in a persistent pattern for weeks. The course has been constant. The depression is described as feeling sad., End: 28-May-2017 11:33 [ADDITIONAL REASON] Follow up Meds - The patient feels well with minor complaints, has good energy level and is sleeping well. Patient has been compliant with instructions. Current medication use: no side effects and compliant with dosing regimen. Encounter Diagnosis: BMI between 19-24,adult, Depression, acute [facility] Office Visit On: 30-Apr-2017 16:08 Encounter Reason: Depression - The onset of the depression has been sudden and has been occurring in a persistent pattern for weeks. The course has been constant. The depression is described as feeling sad.Encounter Diagnosis: Fatigue, End: 30-Apr-2017 17:11 Stress reaction, Depression, acute, Body aches [facility] Office Visit On: 31-Oct-2016 10:11 Encounter Reason: Sore Throat - Symptoms include sore throat, fever and chills. The symptoms are left sided. There is no radiation. The patient describes the pain as sharp. Onset was sudden 1 day(s) ago. The symptoms occ End: 31-Oct-2016 10:36 ur constantly. Associated symptoms do not include headache, hoarseness, neck stiffness, ear pain, facial pain, abdominal pain, nausea, vomiting, cough, rash, anorexia or fatigue. Presenting symptoms included sore throat, fever and chills. Encounter Diagnosis: Nonsmoker, BMI between 19-24,adult, Sore throat, Strep throat exposure [facility] Office Visit On: 14-Aug-2016 15:25 Encounter Reason: Earache - The onset of the earache has been sudden and has been occurring in a persistent pattern for 1 week. The course has been constant. The earache is described as a moderate dull ache and pressure End: 14-Aug-2016 16:29 sensation. It affects both ears. The pain affects the internal ear. There has been associated runny nose.Encounter Diagnosis: BMI between 19-24,adult, Nonsmoker, Earache, Ringing in ears, left, Eustachian tube dysfunction, bilateral [facility] Office Visit On: 08-May-2016 15:22 Encounter Reason: Shoulder Problem - This shoulder problem is without any known injury. The patient is right hand dominant. The injury involved the left shoulder. This occurred 3 week(s) ago. Symptoms include shoulder pa End: 08-May-2016 16:07 in, tenderness and decreased range of motion.Encounter Diagnosis: Tobacco abuse, in remission (Renamed from Tobacco dependence in remission), BMI between 19- 24,adult, Shoulder impingement, left [facility] Office Visit On: 30-Mar-2016 9:34 Encounter Reason: Shoulder Problem - This shoulder problem is without any known injury. The patient is right hand dominant. The injury involved the left shoulder. This occurred 3 week(s) ago. Symptoms include shoulder pa End: 30-Mar-2016 10:09 in, tenderness and decreased range of motion.Encounter Diagnosis: Acute pain of left shoulder, Muscle spasm, Shoulder impingement, left [facility] Office Visit On: 17-Feb-2016 11:17 Encounter Reason: Follow up for chronic medical issues - The patient feels well with minor complaints, has good energy level and is sleeping well. Patient has been compliant with instructions. Current medication use: no End: 17-Feb-2016 11:47 side effects and compliant with dosing regimen. Patient sleeps 7 hours per night. Nutrition: balanced diet and supplemental vitamins. The medical issues the patient is following up for include All ident ified problems below, depression and hypothyroid.Encounter Diagnosis: Hypothyroidism, Anxiety, Uterine prolapse, Tobacco abuse, in remission (Renamed from Tobacco dependence in remission) [facility] Office Visit On: 13-Jul-2015 11:40 Encounter Reason: Post-surgery - Pt had a total hysterectomy on 06/30/[address] Harden. Pt has no questions or concerns at this time. No concerns with healing. Surgeon told her to f/u with PCP after surgery. she End: 13-Jul-2015 12:32 had surgery don ebc prolapse. doing okay. urination beter. 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 moving bowels okayEncounter Diagnosis: S/P hysterectomy, Hypothyroidism, Anxiety [facility] Office Visit On: 21-Jun-2015 13:19 Encounter Reason: Follow up Meds - Patient has been compliant with instructions., [ADDITIONAL REASON] Follow up tests - Diagnostic tests include other (labs). Encounter Diagnosis: Anxiety End: 21-Jun-2015 16:40 [facility] Phone Encounter On: 31-May-2015 17:36 Encounter Diagnosis: Unspecified Diagnosis End: 31-May-2015 17:38 [facility] Office Visit On: 31-May-2015 9:27 Encounter Reason: Anxiety - The anxiety has been occurring for 3 days. Note for Anxiety : no travel no SobFeeling tense and easy irritabilityTaking B D Calcium, fish oil and calcium Encounter Diagnosis: Myalgia, Rapid resting heart rate, Anxiety, End: 31-May-2015 10:17 Palpitations, Hot flashes [facility] Office Visit On: 17-May-2015 15:13 Encounter Reason: Follow up for chronic medical issues - The patient feels well with minor complaints, has good energy level and is sleeping well. Patient has been compliant with instructions. Current medication use: no End: 17-May-2015 15:51 side effects, compliant with dosing regimen and considered effective by patient. Patient sleeps 7 hours per night. Impact of disease: emotional impact-mild. Nutrition: balanced diet and supplemental vit amins. The medical issues the patient is following up for include depression and hypothyroid.Encounter Diagnosis: Hypothyroidism, Tobacco abuse, in remission (Renamed from Tobacco dependence in remission), Uterine prolapse, GERD (gastroesophageal reflux disease), Cervical Radiculopathy (Renamed from Cervical nerve root disorder), Depression, Calcium kidney stone, Abnormal TSH, Encounter for preprocedural cardiovascular examination (Renamed from Pre-operative cardiovascular examination), Pre-operative exam (Renamed from Encounter for pre-operative examination), Encounter for preprocedural laboratory examination (Renamed from Pre-procedural laboratory examination), Encounter for general adult medical examination w/o abnormal findings (Renamed from Encounter for gen eral adult medical examination without abnormal findings) [facility] Office Visit On: 14-Sep-2014 15:25 Encounter Reason: Shoulder Problem - This shoulder problem is without any known injury. The patient is right hand dominant. The injury involved the left shoulder. This occurred 2 week(s) ago. Symptoms include shoulder pa End: 14-Sep-2014 18:03 in, tenderness and decreased range of motion. Symptoms are located in the left shoulder.Encounter Diagnosis: Neck Pain (Renamed from Cervical pain), Cervical Radiculopathy (Renamed from Cervical nerve root disorder) [facility] Office Visit On: 30-Mar-2014 15:39 Encounter Reason: Follow up acute care visit - The patient feels the same and worsening. Patient has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
== END ==
PROVIDERS: Family Provider Internal Medicine; PCP Internal Medicine; Referring Provider Obstetrics & Gynecology; Visit Provider Obstetrics & Gynecology
DX: Z12.31 Encounter for screening mammogram for malignant neoplasm of breast (principal)
CPT/HCPCS: 77063; 77067

== ENCOUNTER → 2018-09-19 15:30 | Outpatient (CLI) | payer OTHER, SELFPAY ==
[2018-09-19 17:44] LABS: Thyroid Stim Hormone (TSH) 1.73 uIU/mL (0.358-3.74)
== END ==
PROVIDERS: Family Provider Internal Medicine; PCP Internal Medicine; Referring Provider Internal Medicine; Visit Provider Internal Medicine
DX: F41.9 Anxiety disorder, unspecified (principal)
CPT/HCPCS: 36415; 84443

== ENCOUNTER 2018-10-10 07:22 | Day surgery (SDC) | payer OTHER, SELFPAY ==
[2018-10-10] VITALS (9 sets, daily range): BP systolic 115–135; BP diastolic 66–74; PULSE 62–72; RESP 14–18; TEMP 36.2–37.1; O2SAT 94–97; BMI 23.6
--- NOTE | 2018-10-10 07:31 | EKG12_ITS ---
Test Reason : PRE OP Blood Pressure : / mmHG Vent. Rate : 060 BPM Atrial Rate : 060 BPM P-R Int : 152 ms QRS Dur : 082 ms QT Int : 410 ms P-R-T Axes : 079 027 050 degrees QTc Int : 410 ms Normal sinus rhythm Normal ECG Confirmed by SHIV LEUNG, ZOË ([id number]), loan expeditor ANAT AYALA ([id number]) on 10/14/2018 12:39:43 PM Referred By: Tita Orozco Confirmed By:ZOË CHANEY MD
[2018-10-10] MEDS: Acetaminophen 500 MG Tablet 1000 MG PO (08:01)
[2018-10-10] MEDS: Phenazopyridine 95 MG Tablet 190 MG PO (08:01)
[2018-10-10] MEDS: Gabapentin 300 MG Capsule PO (08:02)
[2018-10-10] MEDS: Bupiv/Epi 0.5% Mpf 30 ML Vial (08:16)
[2018-10-10] MEDS: Cefazolin 2 GM in 0.9% Normal Saline 100 ML IV (09:17)
--- NOTE | 2018-10-10 10:36 | DCINST_ITS ---
Discharge Activity: Return to Normal Activity May resume sexual activity in: 6 weeks Call your doctor if your incision/area has: Sudden Increased Bleeding Call your doctor if you observe: Fever of 101 or Higher, Inability to urinate, Using more than one pad per hour, Uncontrolled pain Change Dressing in (Days):: 4 - Leave steri-strips in place for 1 week. Allergies/Adverse Reactions: Allergies No Known Allergies Allergy (Verified 06/24/15 15:34) Medications to take at Discharge RX: Calcium Carbonate [Calcium] 600 mg PO DAILY 06/24/15 RX: Cholecalciferol (VIT D3) [Vitamin D3] 2,000 unit PO DAILY 06/24/15 RX: Levothyroxine Sodium [Levoxyl] 75 mcg PO DAILY 06/24/15 RX: Multivitamins,Therapeutic [Multivitamin] 1 tablet PO DAILY 06/24/15 Citalopram [Celexa] 20 mg PO DAILY 10/03/18 Ibandronate Sodium [Boniva] 150 mg PO Q30D 10/03/18 RX: Biotin 10,000 mcg PO DAILY 10/03/18 Primary Care Physician: Winnie Eid DO [Primary Care Provider] - Test Results: Test results from this visit will be discussed in further detail at your follow- up appointment, if applicable. Please Follow Up With: Tita Orozco MD When: six weeks Proposed Discharge Date: 10/10/18
--- NOTE | 2018-10-10 10:50 | OP.PCM_ITS ---
Problem List (1) Vaginal vault prolapse after hysterectomy Status: Acute (2) Rectocele Status: Acute (3) Female stress incontinence Status: Acute Report of Operation Date of Procedure: 10/10/18 Pre-Operative Diagnosis: Female stress incontinence, rectocele and vaginal vault prolapse after hysterectomy Post-Operative Diagnosis: same Surgery/Procedure Performed:: Sacrospinous ligament suspension, posterior colporrhaphy, midurethral sling and cystoscopy Description of Surgical Findings:: bilateral ureteral orifices were patient with pyridium stained urine on cystoscopy. No bladder, urethral or rectal injury. compensation consulting manager: Trish - Sarah He Type of Anesthesia:: General Anesthesiologist: Patrick Lara Special Medications: .5% marcaine with epi Specimen's removed: None Drains: Santiago to PACU Estimated Blood Loss (mL): 100 cc Fluids Replaced: 1100 cc LR Description of Procedure: Patient was taken to the operating and general anesthesia was initiated. The patient was placed in dorsal lithotomy position and prepped and draped in sterile fashion. A Santiago catheter was inserted. A lone star retractor was used for adequate retraction. The vaginal epithelium over the posterior vaginal wall was grasped with Allis clamps and injected with .5% marcaine with epinephrine. A vertical midline incision was made with a 15 blade scalpel. The underlying rectovaginal fascia was dissected off the overlying vaginal epithelium until the herniation was completely isolated. The posterior vaginal wall was then repaired with imbricating sutures of 2-O PDS. Once the herniation was repaired a polypropylene and a PDS suture were passed thru the sacrospinous ligaments bilaterally using the Capio needle shuttle truck driver. The vaginal epithelium overlying the midurethra was then grasped with Allis clamp and injected with .5% Marcaine with epinephrine. A vertical midline incision was made with a 15 blade scalpel. Tunnels were dissected bilaterally using Metzenbaum scissors to the pubic rami. The Yessenia passers were then passed through the tunnels, through the space of Retzius and out the skin at the pubic symphysis. The Santiago was removed and cystoscopy was performed. The sling was then drawn up through the tunnels and out the skin at the pubic symphysis. Tension was adjusted and the plastic sheaths were removed. The redundant sling was trimmed at the skin and the skin was repaired with Dermabond. The vaginal epithelium was repaired with a running locking 3-O Vicryl suture. The sacrospinous ligament suspension sutures were brought through the corners of the vaginal cuff. The redundant vaginal epithelium was excised and repaired in the midline with a running locking 3-O Vicryl suture. All needle instrument and sponge counts were correct times two. Anesthesia was discontinued and the patient was taking to the recovery room in stable condition draining clear urine from her Santiago catheter. Grafts/Implants Used: Yessenia Desera Sling - Complications None - Admit VTE Documentation VTE Present on Admission: No VTE Mechan Device Prophylaxis: SCD's VTE Pharm Prophylaxis ordered?: No Reason prophylaxis not ordered:: Procedure Not Indicated
== END 2018-10-10 14:21 | disposition home or self-care (01) ==
LOC: SDC 07:23 → AC 07:24
PROVIDERS: Family Provider Internal Medicine; PCP Internal Medicine; Referring Provider Obstetrics & Gynecology; Visit Provider Obstetrics & Gynecology
PROC: (CPT 57260; principal; 2018-10-10 08:45)
DX: N39.3 Stress incontinence (female) (male) (principal); N99.3 Prolapse of vaginal vault after hysterectomy; F32.9 Major depressive disorder, single episode, unspecified; Z87.891 Personal history of nicotine dependence
CPT/HCPCS: 00860; 57250; 57288; 93005; J7120; J2405

== ENCOUNTER 2019-03-06 10:44 | Observation (INO) | payer OTHER, SELFPAY ==
[2018-10-10 07:54] VITALS: BMI 23.6
[2019-03-06] VITALS (11 sets, daily range): BP systolic 124–190; BP diastolic 62–85; PULSE 54–70; RESP 10–18; TEMP 36–36.8; O2SAT 98–100; BMI 25.2; BMI 24.8; BMI 24.9
--- NOTE | 2019-03-06 10:53 | EKG12_ITS ---
Test Reason : CP Blood Pressure : / mmHG Vent. Rate : 063 BPM Atrial Rate : 063 BPM P-R Int : 156 ms QRS Dur : 086 ms QT Int : 396 ms P-R-T Axes : 075 024 048 degrees QTc Int : 405 ms Normal sinus rhythm Normal ECG Confirmed by ARDEN LEUNG, ABEBE ([id number]), offline editor ANAT AYALA ([id number]) on 03/07/2019 1:22:38 PM Referred By: Patrick Mcgrath Confirmed By:ANAYA HER MD
--- NOTE | 2019-03-06 10:53 | RAD_ITS ---
STUDY: X-RAY CHEST REASON FOR EXAM: Female, 63 years old. Mid sternal chest pain and pressure. TECHNIQUE: Single AP portable view of the chest. COMPARISON: Comparison is made with prior study dated October 16, 2017. FINDINGS: EKG electrodes are seen. Hyperinflation. There is no demonstrated pleural abnormality. Normal size heart. Normal mediastinum and delia. Normal visualized pulmonary arteries. There is atherosclerotic calcification of the aortic arch with tortuosity. Normal visualized thoracic spine. Normal visualized ribs, clavicles, and shoulders. There is no demonstrated abnormality of the visualized soft tissue structures of the upper abdomen. RAD/Chest 1 View (Portable) IMPRESSION: Hyperinflation. Electronically Signed: Rocky Lunsford, at 11:30 EDT , Service support ,
[2019-03-06 11:00] LABS: Absolute Lymphocyte Count 1.88 X10^3/uL (0.83-4.51); Absolute Neutrophil Count 2.5 X10^3/uL (2.0-7.7); Basophil# 0.03 X10^3/uL; Basophil% 0.6 % (0-1); Eosinophil# 0.06 X10^3/uL; Eosinophils% 1.2 % (0-5); Hematocrit 39.7 % (37-47); Hemoglobin 13.3 g/dL (12.0-15.0); Lymphocyte # 1.88 X10^3/ul (4.0); Lymphocyte % 38.5 % (19-41); Mean Corp Hgb Conc 33.5 g/dL (32-36); Mean Corpuscular Hgb 30.8 pg (27.0-32.0); Mean Corpuscular Volume 91.9 fL (81-99); Mean Platelet Vol. 7.8 fl (6.2-12.0); Monocyte# 0.41 X10^3/uL; Monocyte% 8.4 % (0-10); NRBC Flagged by Analyzer 0 % (0-5); Neutrophil # 2.49 X10^3/uL (2.7-7.7); Neutrophil % 51.1 % (47-70); Platelet Count 352 K/mm3 (150-450); RBC Distribution Width CV 12.9 % (11.6-14.6); RBC Distribution Width SD 43.6 fl (35.1-43.9); Red Blood Count 4.32 M/mm3 (4.2-5.4); White Blood Count 4.9 K/mm3 (4.4-11.0)
[2019-03-06 11:20] LABS: Anion Gap 6 (5-15); BUN 9 mg/dL (7-18); BUN/Creat Ratio 10.9 RATIO (10-20); Calcium,Total 9.2 mg/dL (8.5-10.1); Chloride 98 mmol/L (98-107); Creatinine, Serum 0.83 mg/dL (0.55-1.02); EST Glomerular Filtration Rate 74 mL/min (>60); Est Glom Filt Rate - Afr Amer 90 mL/min (>60); Estimated Creatinine Clearance 55.58 ml/min; Glucose 93 mg/dL (74-106); Potassium 4.1 mmol/L (3.5-5.1); Sodium Level 134 mmol/L (136-145)
[2019-03-06] MEDS: Aspirin 81 MG TAB.CHEW 324 MG PO (11:58)
[2019-03-06] MEDS: Nitroglycerin SL (ED/IMG/CATH) 0.4 MG TABLET SUBLINGUAL ×2 (11:59→12:05)
[2019-03-06] MEDS: Morphine 4 MG/ML Syringe IV (12:18)
[2019-03-06] MEDS: Ondansetron 4 MG/2 ML Vial IV (12:18)
--- NOTE | 2019-03-06 12:27 | ED.VISSUMM ---
- ER Visit Summary Date of Service: 03/06/19 Chief Complaint: [Chest pain] History of Present Illness: The patient is a 63 F [emergency department sudden onset of chest pain around 9:30 AM. Patient describes a pressure that is retrosternal and radiates through to her back. Patient describes it as a burning and this pressure like somebody sitting on her chest. Patient states pain started while at rest. She felt somewhat light headed initially. She denied any diaphoresis, nausea, or shortness of breath with it. She is never had symptoms like this before. She denies any ripping or tearing sensation in her back.] Patient's father had a heart attack in his 60s. Patient does not smoke. She herself has no heart history. She does have a history of hypothyroidism. Physical Examination: [HEENT-PERRLA, EOMI. Cranial nerves II through XII grossly intact. TMs clear. Mucous membranes moist. No adenopathy. Cardiovascular-regular rate and rhythm without murmur or ectopy Lungs-clear to auscultation, chest wall stable without crepitus or subcu emphysema Abdomen-normoactive bowel sounds, soft, nontender, no rebound or rigidity, no peritoneal signs. Extremities-intact ?4, normal range of motion, normal pulses, atraumatic] Test Results: [EKG obtained on arrival shows sinus rhythm with a ventricular rate of 63 bpm with no acute segment changes. CBC with differential is normal. Chemistries normal. Troponin is less than 0.015. Chest x-ray showed nothing acute. Dimer ordered and pending.] Emergency Department Course and Treatment: [She received aspirin and sublingual nitro which did not improve her pain therefore she was given 4 mg of morphine and 4 mill grams of Zofran IV.] Treatment Plan: [Admit for further work-up and evaluation of her chest pain] Disposition: [Admit] Impression: [Chest pain-rule out acute current syndrome] This note was generated with [employer] dictation software. It may contain incorrect words, spelling, and punctuation that were not noted in review of the chart prior to signing ED Disposition - Plan for ED Patient: Referrals: Winnie Eid DO [Primary Care Provider] -
[2019-03-06 12:32] LABS: Lipase 294 U/L (73-393)
[2019-03-06 12:43] LABS: D-Dimer Quantitative (DVT/PE) < 0.27 FEU/ug/m (0.27-0.49)
--- NOTE | 2019-03-06 13:05 | CASEMGMT ---
RN CM Assessment Introduced role of RN CM to patient and patient Keith at bedside.? Patient is alert, oriented and able?to participate in RN CM Assessment. ?Care providers, pharmacy, and demographics verified. Presentation: CP started while at rest Admit Dx: Re-Admit: No Barriers/Issues: None PCP: Winnie Eid Specialists: None Preferred [facility]acy: [facility] Insurance: [employer] Rx Benefit:?Yes LNOK: Keith Coffee LW/HPOA: Yes both, aware not on file with [facility] Living Arrangements:?Lives with her in a SS home, 2 steps to enter ADL?s: Independent with ambulation and ADLs Transportation: Patient and drives, to transport on DC DME: None HHC: None SNF: None Goal: Home and does not think will have any needs. Denies any concerns, issues, or questions at this time with DC planning. Aware CM remains available for any emerging needs. DC PLAN: Home with no anticipated needs identified at this time. Alexander Ruby RNCM
--- NOTE | 2019-03-06 13:36 | EKG12_ITS ---
Test Reason : CP ADMIT Blood Pressure : / mmHG Vent. Rate : 055 BPM Atrial Rate : 055 BPM P-R Int : 168 ms QRS Dur : 080 ms QT Int : 428 ms P-R-T Axes : 064 016 051 degrees QTc Int : 409 ms Sinus bradycardia Low voltage QRS Borderline ECG Confirmed by MARIA LUZ LEUNG, RICHARD ([id number]), supervising editor trailer LUCHO CONSTANTINO ([id number]) on 03/07/2019 2:19:22 PM Referred By: Patrick Mcgrath Confirmed By:RICHARD BRAGA MD
--- NOTE | 2019-03-06 14:34 | HP.PCM_ITS ---
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 Chest pain radiated to her back and was associated with some diaphoresis and shortness of breath. Patient still continues to have chest pain. Patient did receive nitroglycerin in the emergency room but did not relieve her pain. Patient still having pain at this time. She denies ever having had pain like this before. The emergency room stated that he was unable to reproduce the pain in the patient had a family history of myocardial infarction and I requested admission for further chest pain evaluation. Patient does have a history of panic attacks and she states that this feels different than her panic attacks. [] Past Medical History Past Medical History (Chronic Problems): Chronic Problems (This Medical Record has been edited. Action required.) Vaginal vault prolapse after hysterectomy (Chronic) Rectocele (Chronic) Female stress incontinence (Chronic) Cystocele with uterine descensus (Chronic) Hypothyroidism (Chronic) Allergies No Known Allergies Allergy (Verified 03/06/19 10:44) Home Medications: Ambulatory Orders Medication Instructions Recorded Calcium Carbonate [Calcium] 1,000 mg PO DAILY 06/24/15 Cholecalciferol (VIT D3) [Vitamin 1,000 unit PO DAILY 06/24/15 D3] Levothyroxine Sodium [Levoxyl] 75 mcg PO DAILY 06/24/15 Multivitamins,Therapeutic 1 tablet PO DAILY 06/24/15 [Multivitamin] Biotin 10,000 mcg PO DAILY 10/03/18 Citalopram [Celexa] 20 mg PO DAILY 10/03/18 Ibandronate Sodium [Boniva] 150 mg PO Q30D 10/03/18 Zinc 50 mg PO DAILY 03/06/19 Smoking Status: Former smoker Tobacco Use: Non-smoker Alcohol: Occasional Drugs: None - *Family History Paternal History Items: - - no cad Review of Systems Constitutional: Denies: Chills, Fever, Weight Change Eyes: Denies: Blurred vision, Double vision HEENT: Denies: Head Aches, Sinus Congestion, Sinus Drainage Cardiovascular: Reports: Chest Pain. Denies: Palpitations Respiratory: Reports: Shortness of Breath. Denies: Cough, Sputum production Gastrointestinal: Reports: Nausea. Denies: Abdominal Pain, Vomiting Genitourinary: Denies: Dysuria Musculoskeletal: Denies: Arm Pain, Back Pain Skin: Denies: Dryness, Jaundice Hematologic/ Lymphatic: Denies: Easy Bruising, Easy Bleeding, Hx of blood clot Comment: A 10 point review of systems were negative except as mentioned in the history of present illness and the other review of systems. VTE Information - Inpt Only VTE Present on Admission: No VTE Mechan Device Prophylaxis: None VTE Pharm Prophylaxis ordered?: No Reason prophylaxis not ordered:: Procedure Not Indicated Patient Problems: Active and Suspected Problems (This Medical Record has been edited. Action required.) Chest pain (Acute) - Physical Exam General: Alert, Cooperative HEENT: Atraumatic, Normocephalic Oral: Moist Mucosa, No Gingival or Mucosal Lesions/ Ulcerations Neck: No Nodes, Thyroid Normal Size and Texture Lungs: Clear to auscultation, Normal air movement, No rhonchi, No wheeze, No rales Cardiovascular: Regular rate, Regular Rhythm, Normal S1, Normal S2 Abdomen: Bowel Sounds Present, Soft, Non Tender, Non-Distended, No Hepato- splenomegaly Extremities: No edema, No Calf Tenderness Skin: No rashes, No breakdown Musculoskeletal: No Tenderness to Palpation of Joints or Extremities, No Muscle Wasting, - - No reproducible anterior posterior chest wall tenderness Neurological: Sensory exam intact to light touch and pain, Coordination normal Psych/Mental Status: Normal Affect, Appropriate Vital Signs Temp Pulse Resp BP Pulse Ox 36.0 C L 54 L 16 154/84 H 100 03/06/19 13:55 03/06/19 13:55 03/06/19 13:55 03/06/19 13:58 03/06/19 13:55 Oxygen Flow Rate (L/min) 2 Oxygen Delivery Method Nasal Cannula Weight: 61.689 kg Body Mass Index (BMI) 24.8 Laboratory Tests Past 24 Hrs 03/06/19 03/06/19 03/06/19 10:33 10:55 10:55 WBC 4.9 RBC 4.32 Hgb 13.3 Hct 39.7 MCV 91.9 MCH 30.8 MCHC 33.5 RDW Std Deviation 43.6 RDW Coeff of Tatiana 12.9 Plt Count 352 MPV 7.8 Immature Gran % (Auto) 0.200 Neut % (Auto) 51.1 Lymph % (Auto) 38.5 [place] % (Auto) 8.4 Eos % (Auto) 1.2 Baso % (Auto) 0.6 Absolute Neuts (auto) 2.5 Absolute Lymphs (auto) 1.88 Nucleated RBC % 0 D-Dimer Quant (PE/DVT) < 0.27 L Sodium 134 L Potassium 4.1 Chloride 98 Carbon Dioxide 30.0 Anion Gap 6 BUN 9 Creatinine 0.83 Estim Creat Clear Calc 55.58 Est GFR (MDRD) Af Amer 90 Est GFR (MDRD) Non-Af 74 BUN/Creatinine Ratio 10.9 Glucose 93 Calcium 9.2 Troponin I < 0.015 Lipase 03/06/19 10:55 WBC RBC Hgb Hct MCV MCH MCHC RDW Std Deviation RDW Coeff of Tatiana Plt Count MPV Immature Gran % (Auto) Neut % (Auto) Lymph % (Auto) [place] % (Auto) Eos % (Auto) Baso % (Auto) Absolute Neuts (auto) Absolute Lymphs (auto) Nucleated RBC % D-Dimer Quant (PE/DVT) Sodium Potassium Chloride Carbon Dioxide Anion Gap BUN Creatinine Estim Creat Clear Calc Est GFR (MDRD) Af Amer Est GFR (MDRD) Non-Af BUN/Creatinine Ratio Glucose Calcium Troponin I Lipase 294 Clinical Impression(s) from Imaging Studies Chest X-Ray 03/06/19 10:53 IMPRESSION: Hyperinflation. Electronically Signed: Rocky Lunsford, at 11:30 EDT , Service support , EKG reviewed and showed normal sinus rhythm with no acute changes. Assessment/Plan All Active Problems (This Medical Record has been edited. Action required.) Chest pain (Acute) 1. Chest pain * Heart score of 2 and a RON score of 1 * Not reproducible but certainly atypical and the fact the patient was already brought to the floor by time I could not fully assess her I will commence with performing the stress test while she is in the hospital. Patient states that she is active and can walk at a brisk pace will use a treadmill for a nuclear stress. We will cycle troponins. If troponins do become elevated then we will cancel the stress test and commence with a cardiology consult. * Did discuss with the patient that this is atypical and the other possibilities could be musculoskeletal though it is unknown reproducible and at this time or esophageal. 2. VTE prophylaxis: Low risk as she is observation and not indicated at this time. Code Visit OBSV E&M: 43622 Initial observation care L3
[2019-03-06] MEDS: Morphine 2 MG/ML Syringe 1 MG IV (22:49)
[2019-03-07 03:22] VITALS: PULSE 58
[2019-03-07 04:45] VITALS: BP 122/80; PULSE 63; RESP 16; TEMP 36.6; O2SAT 96
[2019-03-07] MEDS: Levothyroxine 75 MCG Tablet PO (05:15)
[2019-03-07] MEDS: Aspirin E.C. 81 MG Tablet PO (05:15)
--- NOTE | 2019-03-07 05:55 | EKG12_ITS ---
Test Reason : AM EKG Blood Pressure : / mmHG Vent. Rate : 053 BPM Atrial Rate : 053 BPM P-R Int : 168 ms QRS Dur : 084 ms QT Int : 432 ms P-R-T Axes : 070 029 047 degrees QTc Int : 405 ms Sinus bradycardia Low voltage QRS (Limb Leads) Confirmed by SHIV LEUNG, ZOË ([id number]), story editor ANAT AYALA ([id number]) on 03/12/2019 11:02:40 AM Referred By: Patrick Mcgrath Confirmed By:ZOË CHANEY MD
[2019-03-07 06:47] LABS: Cholesterol 233 mg/dL (200); High Density Lipoprotein 83 mg/dL; Triglycerides 141 mg/dL; Very Low Density Lipoprotein 28 mg/dL (5-40)
[2019-03-07 08:54] VITALS: PULSE 62
[2019-03-07 10:45] VITALS: BP 130/75; PULSE 65; RESP 14; TEMP 36.6; O2SAT 99
--- NOTE | 2019-03-07 14:35 | STRESSREP ---
Stress Test Report Date: 03/07/2019 Procedure: Exercise tolerance test/imaging study Indications: Chest pain Consent: Per the patient Procedure: The patient exercised on a Hector protocol for 10 minutes achieving a peak heart rate of 155 bpm (98 % predicted maximal heart rate) with a peak blood pressure 158/80 mmHg and a peak MET capacity of 11.7 METs. The baseline ECG demonstrated normal sinus rhythm, possible prior anterior OR. The peak exercise ECG demonstrated no significant ischemic changes. EKG during recovery revealed no significant ischemic changes [There were no cardiac dysrhythmias pretest, during exercise, or recovery]. The functional capacity was considered excellent for age. There was [no complaint of chest discomfort during exercise or recovery]. The examination was discontinued secondary to achieving target heart rate. Impression: 1. Technically adequate (percent predicted maximal heart rate greater than 85%) exercise tolerance test 2. Stress test is negative for exercise-induced EKG changes of ischemia 3. The test test is negative for exercise-induced chest pain 4. Functional capacity is excellent for age 5. Nuclear images pending Myocardial perfusion imaging study: Technique: The patient was injected with 11.5 mCi of technetium 99m Cardiolite and subsequently rest SPECT Cardiolite nuclear imaging was obtained in the horizontal long, vertical long, and short axis views. The patient exercised on a Hector protocol. Please see above for details. The patient was injected with 36 mCi of technetium 99m Cardiolite and subsequently stress SPECT Cardiolite nuclear imaging was obtained in the horizontal long, vertical long, and short axis views. A gated Cardiolite study at peak stress was obtained. Interpretation: Rest and stress SPECT Cardiolite nuclear imaging status post realignment, normalization, and attenuation correction, demonstrates normal myocardial radioisotope uptake. The gated Cardiolite study demonstrates no significant regional wall motion abnormalities. The reported LVEF is greater than 70 %. Impression: 1. There is no evidence of significant ischemia or infarction. 2. The gated Cardiolite study reports an LVEF of greater than 70 %. This note was generated with Call[employer] software. It may contain incorrect words, spelling, and punctuation that were not noted in checking the note before signing.
--- NOTE | 2019-03-07 14:43 | DCINST_ITS ---
- Discharge Diagnoses Current Active Problems: Current Active and Chronic Problems (This Medical Record has been edited. Action required.) Chest pain (Acute) You will use the following diet at home:: Cardiac Your food should be the consistency of: Regular Your liquids should be the consistency of: Regular/Thin Discharge Activity: Return to Normal Activity Allergies/Adverse Reactions: Allergies No Known Allergies Allergy (Verified 03/06/19 10:44) Medications to take at Discharge Calcium Carbonate [Calcium] 1,000 mg PO DAILY 06/24/15 Cholecalciferol (VIT D3) [Vitamin D3] 1,000 unit PO DAILY 06/24/15 Levothyroxine Sodium [Levoxyl] 75 mcg PO DAILY 06/24/15 Multivitamins,Therapeutic [Multivitamin] 1 tablet PO DAILY 06/24/15 Biotin 10,000 mcg PO DAILY 10/03/18 Citalopram [Celexa] 20 mg PO DAILY 10/03/18 Ibandronate Sodium [Boniva] 150 mg PO Q30D 10/03/18 Zinc 50 mg PO DAILY 03/06/19 Primary Care Physician: Winnie Eid DO [Primary Care Provider] - Please follow up with your Primary Care Physician in: 1-2 weeks Test Results: Test results from this visit will be discussed in further detail at your follow- up appointment, if applicable. Proposed Discharge Date: 03/07/19
--- NOTE | 2019-03-07 14:45 | DS.PCM_ITS ---
<Manoj Johns - Last Filed: 03/07/19 14:45> Discharge Date and Diagnosis - Problem List Patient Problems: Active and Suspected Problems (This Medical Record has been edited. Action required.) Chest pain (Acute) Date of Admission: 03/06/19 Date of Discharge: 03/07/19 - Primary Discharge Diagnosis Active and Suspected Problems (This Medical Record has been edited. Action required.) Chest pain - musculoskeletal Hx hypothyroidism hx stress incontinence hx vaginal prolapse hx cystocele, rectocele - Secondary Discharge Diagnosis Chronic Problems (This Medical Record has been edited. Action required.) Vaginal vault prolapse after hysterectomy (Chronic) Rectocele (Chronic) Female stress incontinence (Chronic) Cystocele with uterine descensus (Chronic) Hypothyroidism (Chronic) Hospital Course and Treatment Imaging Results: 03/07/19 05:55 Nuclear Stress Test - Treadmil [NM] AM (NON MEDS) Interpretation: Rest and stress SPECT Cardiolite nuclear imaging status post realignment, normalization, and attenuation correction, demonstrates normal myocardial radioisotope uptake. The gated Cardiolite study demonstrates no significant regional wall motion abnormalities. The reported LVEF is greater than 70 %. Impression: 1. There is no evidence of significant ischemia or infarction. 2. The gated Cardiolite study reports an LVEF of greater than 70 %. This note was generated with [employer] dictation software. It may contain incorrect words, spelling, and punctuation that were not noted in checking the note before signing. RAD/Chest 1 View (Portable) IMPRESSION: Hyperinflation. Operations: None, - - LAVH/BSO, cystocele repair Procedures: Stress test Summary of Care Provided: Hospital course: The patient is a 63 year old F with past medical history as above who presented to the emergency room with complaints of chest pain. This began suddenly had about 9 AM the day of presentation. She described as a left-sided pain radiating into her back with associated shortness of breath and sweating. She received nitro in the ER that did not help. In the ER she had a negative chest x-ray, negative troponin, negative EKG. She also had reported on admission that she had had panic attacks in the past, and had never had symptoms like this during a panic attack. She denied ever having this type of pain before, and she denied symptoms prior to the day of presentation. She was admitted to the PCU and placed on telemetry for chest pain work-up. There were no events on telemetry. Troponin was cycled and remained negative. The following morning she underwent a stress test which was negative. Her pain was felt to be musculoskeletal. She was discharged home in stable condition. She will need to follow-up with her PCP in 1 to 2 weeks. This patient was seen by Manoj Johns PA-C under the supervision of Doctor Alcides. [] Patient Problems: Active and Suspected Problems (This Medical Record has been edited. Action required.) Chest pain (Acute) - Physical Exam General: Alert, Oriented x3, Cooperative HEENT: Atraumatic, PERRLA, EOMI, Normocephalic Neck: Supple, No JVD, Negative Carotid Bruits Lungs: Clear to auscultation, Normal air movement Cardiovascular: Regular rate, No murmurs Abdomen: Bowel Sounds Present, Soft, Non Tender Extremities: No edema, Capillary Refill Less than 3 Seconds Skin: No rashes, No breakdown Musculoskeletal: No Tenderness to Palpation of Joints or Extremities Neurological: Cranial nerves II-XII grossly intact Psych/Mental Status: Normal Affect, Appropriate Vital Signs Temp Pulse Resp BP Pulse Ox 97.8 F 65 14 130/75 H 99 03/07/19 10:45 03/07/19 10:45 03/07/19 10:45 03/07/19 10:45 03/07/19 10:45 Oxygen Flow Rate (L/min) 2 Oxygen Delivery Method Room Air Weight: 136 lb Body Mass Index (BMI) 24.8 Intake and Output for Last 24 Hours 03/05/19 03/06/19 03/07/19 23:59 23:59 23:59 Intake Total 440 / 440 260 / 260 Output Total 300 / 300 Balance 140 / 140 260 / 260 Laboratory Tests Past 24 Hrs 03/06/19 03/06/19 03/07/19 14:25 16:35 06:00 Troponin I < 0.015 < 0.015 Triglycerides 141 Cholesterol 233 H LDL Cholesterol 122 VLDL Cholesterol 28 HDL Cholesterol 83 Discharge Diet: Low fat/ Low Cholesterol, 2000 mg Sodium Diet Discharge Activity: Return to Normal Activity Home Medications: Medications to take at Discharge Calcium Carbonate [Calcium] 1,000 mg PO DAILY 06/24/15 Cholecalciferol (VIT D3) [Vitamin D3] 1,000 unit PO DAILY 06/24/15 Levothyroxine Sodium [Levoxyl] 75 mcg PO DAILY 06/24/15 Multivitamins,Therapeutic [Multivitamin] 1 tablet PO DAILY 06/24/15 Biotin 10,000 mcg PO DAILY 10/03/18 Citalopram [Celexa] 20 mg PO DAILY 10/03/18 Ibandronate Sodium [Boniva] 150 mg PO Q30D 10/03/18 Zinc 50 mg PO DAILY 03/06/19 Primary Care Physician: Winnie Eid DO [Primary Care Provider] - Please follow up with your Primary Care Physician in: 1-2 weeks Disposition: Home Minutes spent on discharge:: 35 Patient Condition:: Stable Medical Necessity - Tobacco Use Smoking Status: Former smoker Tobacco Use: Non-smoker Meaningful Use Info Meaningful Use Diagnoses (Choose all that apply): None applicable <Patrick Mcgrath - Last Filed: 03/07/19 15:49> Discharge Date and Diagnosis - Primary Discharge Diagnosis Active and Suspected Problems (This Medical Record has been edited. Action required.) Chest pain (Acute) - Secondary Discharge Diagnosis Chronic Problems (This Medical Record has been edited. Action required.) Vaginal vault prolapse after hysterectomy (Chronic) Rectocele (Chronic) Female stress incontinence (Chronic) Cystocele with uterine descensus (Chronic) Hypothyroidism (Chronic) Hospital Course and Treatment Operations: None, - Procedures: Stress test Summary of Care Provided: The patient is a 63 year old F presents with chest pain. Chest pain was atypical as it was anterior as well as posterior. Not reproducible. Patient underwent stress test that was negative. Patient is currently chest pain-free. [] - Physical Exam General: Alert, Cooperative HEENT: Atraumatic, Normocephalic Lungs: Clear to auscultation, Normal air movement Cardiovascular: Regular rate, No murmurs Vital Signs Temp Pulse Resp BP Pulse Ox 36.6 C 65 14 130/75 H 99 03/07/19 10:45 03/07/19 10:45 03/07/19 10:45 03/07/19 10:45 03/07/19 10:45 Oxygen Flow Rate (L/min) 2 Oxygen Delivery Method Room Air Weight: 61.689 kg Body Mass Index (BMI) 24.8 Intake and Output for Last 24 Hours 03/05/19 03/06/19 03/07/19 23:59 23:59 23:59 Intake Total 440 / 440 260 / 260 Output Total 300 / 300 Balance 140 / 140 260 / 260 Laboratory Tests Past 24 Hrs 03/06/19 03/07/19 16:35 06:00 Troponin I < 0.015 Triglycerides 141 Cholesterol 233 H LDL Cholesterol 122 VLDL Cholesterol 28 HDL Cholesterol 83 Discharge Diet: Low fat/ Low Cholesterol, 2000 mg Sodium Diet Discharge Activity: Return to Normal Activity Disposition: Home Patient Condition:: Stable Medical Necessity - Tobacco Use Smoking Status: Former smoker Tobacco Use: Non-smoker Meaningful Use Info Meaningful Use Diagnoses (Choose all that apply): None applicable Code Visit OBSV E&M: 54594 Observation care discharge
== END 2019-03-07 16:21 | disposition home or self-care (01) ==
LOC: ED 11:55 → PCU 13:15
PROVIDERS: Emergency Provider Emergency Medicine; Family Provider Internal Medicine; PCP Internal Medicine
DX: R07.89 Other chest pain (principal); R42 Dizziness and giddiness; E03.9 Hypothyroidism, unspecified; Z82.49 Family history of ischemic heart disease and other diseases of the circulatory system; N39.3 Stress incontinence (female) (male); Z79.899 Other long term (current) drug therapy; Z87.891 Personal history of nicotine dependence
CPT/HCPCS: 36415; 71045; 78452; 80048; 80061; 83690; 84484; 85025; 85379; 93005; 93017; 96374; 96375; 96376; 99218; 99284; A9500; A4216; G0378; J2405

== ENCOUNTER → 2019-07-07 09:43 | Outpatient (CLI) | payer OTHER, SELFPAY ==
[2019-03-06 13:37] VITALS: BMI 24.8
--- NOTE | 2019-07-07 09:45 | BI_ITS ---
MAMMOGRAPHY - BILATERAL SCREENING REASON FOR EXAM: Female, 63 years old. Routine annual screening examination. PERTINENT HISTORY: Non-contributory. History of bilateral breast implants. TECHNIQUE: Digital bilateral breast may (3D mammographic acquisition) in the CC and MLO projections. 2-D mediolateral oblique (MLO) and craniocaudad (CC) views of both breasts were obtained. CAD: Full Field Digital Mammography with Computer Added Detection was performed. COMPARISON: Comparison is made with prior study dated July 05, 2018 and May 17, 2007. FINDINGS: Breast Composition: There are scattered areas of fibroglandular density. There are no dominant masses or suspicious calcifications. Stable appearance of the bilateral breast implants. Stable appearance of the bilateral axillary lymph nodes. No other significant abnormalities are identified. There has been no significant change since the prior study. BI/SCREEN MAMM (CAD) W/AMY BILAT IMPRESSION: Stable bilateral screening mammogram. Yearly follow-up mammogram recommended. (A) ASSESSMENT CATEGORY: BIRADS Category 2: Benign. A letter regarding these results will be sent to the patient by the facility within 30 days. Approximately 10% of breast cancers are not detected by mammography. A normal mammogram should not delay biopsy of a clinically suspicious abnormality. [id number] Electronically Signed: Rocky Lunsford, at 11:10 EST , Service support ,
== END ==
PROVIDERS: Family Provider Internal Medicine; PCP Internal Medicine; Referring Provider Obstetrics & Gynecology; Visit Provider Obstetrics & Gynecology
DX: Z12.31 Encounter for screening mammogram for malignant neoplasm of breast (principal)
CPT/HCPCS: 77063; 77067

== ENCOUNTER → 2020-05-14 09:23 | Outpatient (CLI) | payer OTHER, SELFPAY ==
[2019-03-06 13:37] VITALS: BMI 24.8
--- NOTE | 2020-05-14 09:35 | EKG12_ITS ---
Test Reason : PREOP Blood Pressure : / mmHG Vent. Rate : 076 BPM Atrial Rate : 076 BPM P-R Int : 152 ms QRS Dur : 078 ms QT Int : 378 ms P-R-T Axes : 068 010 043 degrees QTc Int : 425 ms Normal sinus rhythm Normal ECG Confirmed by MARIA LUZ LEUNG, RICHARD ([id number]), digital editor ANAT AYALA ([id number]) on 05/18/2020 9:28:15 AM Referred By: Jamaal Moise Confirmed By:RICHARD BRAGA MD
[2020-05-14 10:44] LABS: Hematocrit 37.9 % (37-47); Hemoglobin 12.8 g/dL (12.0-15.0); Mean Corp Hgb Conc 33.8 g/dL (32-36); Mean Corpuscular Volume 97.7 fL (81-99); Mean Platelet Vol. 8.3 fl (6.2-12.0); Platelet Count 427 K/mm3 (150-450); RBC Distribution Width CV 12.7 % (11.6-14.6); RBC Distribution Width SD 45.1 fl (35.1-43.9); Red Blood Count 3.88 M/mm3 (4.2-5.4); White Blood Count 4.8 K/mm3 (4.4-11.0)
[2020-05-14 11:33] LABS: Anion Gap 6 (5-15); BUN 7 mg/dL (7-18); BUN/Creat Ratio 8.3 RATIO (10-20); Calcium,Total 8.9 mg/dL (8.5-10.1); Chloride 95 mmol/L (98-107); Creatinine, Serum 0.85 mg/dL (0.55-1.02); EST Glomerular Filtration Rate 72 mL/min (>60); Est Glom Filt Rate - Afr Amer 87 mL/min (>60); Glucose 83 mg/dL (74-106); Potassium 4.3 mmol/L (3.5-5.1); Sodium Level 130 mmol/L (136-145)
== END ==
PROVIDERS: PCP Internal Medicine; Referring Provider Orthopaedic Surgery; Visit Provider Orthopaedic Surgery
DX: Z01.810 Encounter for preprocedural cardiovascular examination (principal); Z01.818 Encounter for other preprocedural examination; E11.9 Type 2 diabetes mellitus without complications
CPT/HCPCS: 36415; 80048; 85027; 93005

== ENCOUNTER → 2020-05-21 17:58 | Outpatient (CLI) | payer OTHER, SELFPAY ==
[2019-03-06 13:37] VITALS: BMI 24.8
== END ==
PROVIDERS: PCP Internal Medicine; Referring Provider Physician Assistant; Visit Provider Physician Assistant
DX: Z11.59 Encounter for screening for other viral diseases (principal)
CPT/HCPCS: 87635; C9803; U0003

== ENCOUNTER → 2020-07-13 10:12 | Outpatient (CLI) | payer OTHER, SELFPAY ==
[2019-03-06 13:37] VITALS: BMI 24.8
--- NOTE | 2020-07-13 10:14 | BI_ITS ---
MAMMOGRAPHY - BILATERAL SCREENING REASON FOR EXAM: Female, 64 years old. Routine annual screening examination. PERTINENT HISTORY: Non-contributory. TECHNIQUE: Digital bilateral breast amy (3D mammographic acquisition) in the CC and MLO projections. 2-D mediolateral oblique (MLO) and craniocaudad (CC) views of both breasts were obtained. CAD: Full Field Digital Mammography with Computer Added Detection was performed. COMPARISON: Comparison is made with prior study dated 07/07/2019 and 07/05/2018. FINDINGS: Breast Composition: There are scattered areas of fibroglandular density. There are no dominant masses or suspicious calcifications. Stable bilateral breast implants. These are unchanged. Stable small bilateral axillary lymph nodes. No other significant abnormalities are identified. There has been no significant change since the prior study. BI/SCRN MAMM (CAD)W/AMY BILAT IMPRESSION: Stable bilateral screening mammogram. Yearly follow-up mammogram recommended. (A) ASSESSMENT CATEGORY: BIRADS Category 2: Benign. A letter regarding these results will be sent to the patient by the facility within 30 days. Approximately 10% of breast cancers are not detected by mammography. A normal mammogram should not delay biopsy of a clinically suspicious abnormality. [id number] Electronically Signed: Rocky Lunsford MD at 11:28 EST , Service support ,
--- NOTE | 2020-07-13 10:24 | BD_ITS ---
STUDY: DUAL ENERGY X-RAY ABSORPTIOMETRY / DXA REASON FOR EXAM: Female, 64 years old. 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 COMPARISON: Comparison is made with prior study dated 10/02/2017. FINDINGS: Lumbar Spine (L1-L4): g/cm2 (1.016) / T-score (-1.4) / Z-score (0.1) Findings are suggestive of osteopenia with a low fracture risk. Approximately 50% loss of height of a mid dorsal vertebrae. Left Femur Total: g/cm2 (0.771) / T-score (-1.9) / Z-score (-0.8) Left Femoral Neck: g/cm2 (0.815) / T-score (-1.6) / Z-score (-0.2) Right Femur Total: g/cm2 (0.735) / T-score (-2.2) / Z-score (-1.0) Right Femoral Neck: g/cm2 (0.698) / T-score (-2.4) / Z-score (-1.0) The T-Scores on the most recent prior examination were: Lumbar Spine (L1-L4): There has been improvement of bone density since the previous examination. Left Femur Total: which represents an improvement of 0.7%. Right Femur Total: which represents a worsening of 4.4%. BD/Dexa Bone Density Study IMPRESSION: The patient is considered osteopenic as outlined below according to World Myles Organization (WHO) criteria with a high fracture risk. There has been improvement of bone density since the previous examination. Reference Information: The T-score is the number of standard deviations above or below the standard which is normal for young adults at their peak bone mineral density. The World Health Organization (WHO) interprets the T-scores as follows: Above -1 Normal bone density Between -1 and -2.5 Osteopenia Equal to / or below -2.5 Osteoporosis As a practical clinical guideline, osteopenia may be graded as follows: Mild -1 through -1.5 Moderate -1.6 through -2.0 Severe -2.1 through -2.4 The Z-score is the number of standard deviations above or below age-matched controls. A Z-score of less than -1.5 would be considered abnormal. References: 1. NIH Osteoporosis and Related Bone Diseases www osteo.org 2. International Society for Clinical Densitometry www iscd.org 3. National Osteoporosis Foundation www nof.org Electronically Signed: Rocky Lunsford MD at 13:40 EST , Service support ,
== END ==
PROVIDERS: PCP Internal Medicine; Visit Provider Internal Medicine
DX: Z12.31 Encounter for screening mammogram for malignant neoplasm of breast (principal); Z78.0 Asymptomatic menopausal state
CPT/HCPCS: 77063; 77067; 77080

== ENCOUNTER 2020-08-24 13:52 | Outpatient (RCR) | payer OTHER, SELFPAY ==
[2019-03-06 13:37] VITALS: BMI 24.8
[2020-08-24] MEDS: COVID-19 VACC, MRNA(PFIZER)/PF 30 MCG/0.3 ML SYRINGE IM (15:26)
[2020-09-14] MEDS: COVID-19 VACC, MRNA(PFIZER)/PF 30 MCG/0.3 ML SYRINGE IM (15:20)
== END 2020-11-23 23:59 ==
LOC: IMMUN 13:52
PROVIDERS: PCP Internal Medicine; Visit Provider Family Medicine
DX: Z23 Encounter for immunization (principal)
CPT/HCPCS: 0001A; 0002A; 91300

== ENCOUNTER 2021-05-11 13:14 | Emergency (ER) | payer OTHER, SELFPAY ==
[2021-05-11 13:14] VITALS: BP 176/75; PULSE 72; RESP 16; TEMP 36.3; O2SAT 100; BMI 25.0
--- NOTE | 2021-05-11 13:26 | CT_ITS ---
STUDY: CT CERVICAL SPINE WITHOUT CONTRAST REASON FOR EXAM: Female, 65 years old. Neck pain and headache RADIATION DOSAGE (If Supplied By Facility): CTDIvol = ( 11.79 ) mGy, DLP = ( 219.99 ) mGycm TECHNIQUE: High resolution transaxial imaging was performed without contrast material. Sagittal and coronal images were reconstructed. Individualized dose optimization techniques were used for this CT. COMPARISON: None FINDINGS: Normal craniovertebral junction. There are degenerative changes of the anterior atlantoaxial articulation. Normal odontoid process. There is straightening of the normal cervical lordosis. There are sclerotic endplate changes throughout the cervical spine. There is anatomic alignment of the cervical spine from C1 to C4. There is a 4 to 5 mm posterior subluxation of C5 on C4, then an anterior subluxation of 2 to 3 mm of C6 on C5. There is anatomic alignment from C6 to T1. These subluxations are likely chronic as there is no soft tissue swelling or other evidence to suspect acute injury. There is no central canal stenosis, there is bilateral foraminal narrowing from C4-5 through C7-T1 due to mild degenerative changes. No suspicious adenopathy, airway narrowing or deviation. CT/Spine Cervical without Contras IMPRESSION: Multilevel degenerative changes, as described above. No acute findings Likely chronic subluxations at C4-5 and C5-6 as described above Electronically Signed: Ochoa Cheng MD at 14:02 EST , Service support ,
--- NOTE | 2021-05-11 13:26 | CT_ITS ---
STUDY: CT BRAIN WITHOUT CONTRAST REASON FOR EXAM: Female, 65 years old. Head pressure RADIATION DOSAGE (If Supplied By Facility): CTDIvol = ( 44.99 ) mGy, DLP = ( 779.24 ) mGycm TECHNIQUE: Transaxial CT imaging of the brain was performed without administration of intravenous contrast material. Individualized dose optimization techniques were used for this CT. COMPARISON: No relevant priors. FINDINGS: Normal soft tissue structures. Normal calvarium. Normal size ventricles and extra-axial spaces for the patient''s age. Normal white matter tracts of the cerebral hemispheres. Normal basal ganglia and thalami. Normal brainstem. Normal cerebellum. There is no intracranial hemorrhage. There are no findings of an acute ischemic infarction. Mucous retention cyst/polyp in the left maxillary sinus CT/Brain/Head without Contrast IMPRESSION: No acute intracranial hemorrhage Electronically Signed: Ochoa Cheng MD at 13:59 EST , Service support ,
--- NOTE | 2021-05-11 13:33 | EDS_ITS ---
HPI History of Present Illness Chief Complaint: Head Injury Narrative Narrative: Patient presents with pressure at the base of her skull/occiput since Sunday, almost 3 days ago. She denies any fevers or chills. No paresthesias, no head injury. She describes a pressure-like sensation has been constant. She has been taking ibuprofen without relief of her symptoms. No chest pain or shortness of breath. No other symptoms. She states she called her primary care physician, but was unable to be seen. She went to the [facility] and they advised her that there was nothing that they could do for her. [facility] Medical History Hypothyroidism Incontinence in female Incontinence in female Home Medications calcium carbonate 1,000 mg PO DAILY 06/24/15 [History Last Taken 03/05/19] cholecalciferol (vitamin D3) [Vitamin D3] 1,000 unit PO DAILY 06/24/15 [History Last Taken 03/05/19] levothyroxine [Levoxyl] 75 mcg PO DAILY 06/24/15 [History Last Taken 03/06/19] multivitamin with folic acid [Thera] 1 tab PO DAILY 06/24/15 [History Last Taken 03/05/19] Ibandronate Sodium [Boniva] 150 mg PO Q30D 10/03/18 [History Last Taken 03/05/19] biotin 10,000 mcg PO DAILY 10/03/18 [History Last Taken 03/05/19] citalopram 20 mg PO DAILY 10/03/18 [History Last Taken 03/05/19] zinc 50 mg PO DAILY 03/06/19 [History Last Taken 03/05/19] lisinopril 10 mg PO BID #60 tab 05/11/21 [Rx Last Taken Unknown] Allergy/AdvReac Type Severity Reaction Status Date / Time No Known Allergies Allergy Verified 05/11/21 13:16 Surgical History H/O: hysterectomy History of bladder surgery Social History Smoking Status: Former smoker ROS ROS ED ROS Narrative Constitutional: No fever, no chills. HEENT: No sore throat. No neck pain. No loss of vision. No rhinorrhea. Cardiovascular: No chest pain. No palpitations. No pedal edema. Respiratory: No cough, no shortness of breath. Abdominal: No abdominal pain. No nausea. No vomiting. Genitourinary: No dysuria. No hematuria. Musculoskeletal: No myalgias. No arthralgias. Neurologic: No headaches, but feels pressure at the base of her skull/in the occiput. No dizziness. No lightheadedness. Skin: No rash. No change in color. Psychiatric: No depression. No anxiety. EXAM Physical Exam Narrative Exam Narrative: Afebrile. Vital signs noted. HEENT: Normocephalic. Atraumatic. PERRL, EOMI. Neck soft and supple. No point tenderness or step off. Cardiovascular: Regular rate and rhythm. No murmurs, rubs, or gallops appreciated. Respiratory: No tachypnea. Lungs clear to auscultation bilaterally. Gastrointestinal: Abdomen soft, nontender, with normoactive bowel sounds. No rebound or guarding. Neurological: Awake. Alert. Oriented x3. Nonfocal, nonlateralizing. DTRs equal and symmetric. Skin: No rash. Normal color. No pallor. Musculoskeletal: No pedal edema. Full range of motion extremities. Const Vital Signs: 05/11/21 13:14 05/11/21 13:48 Temperature 97.3 F L Temperature Source Temporal Pulse Rate 72 67 Respiratory Rate 16 18 Blood Pressure 176/75 H 174/90 H Blood Pressure Mean 108 118 Pulse Ox 100 96 Oxygen Delivery Method Room Air Room Air MDM MDM MDM Narrative Medical decision making narrative: I will obtain CT of the brain and a CT of the C-spine. Of note, her blood pressure is elevated at 176/25. She was administered oral hydralazine [address] CTs of the brain show no acute process, no hemorrhage. CT of the C-spine shows multilevel degenerative changes. While this may be part of a cervical radiculopathy, I do feel that she may have slight pressure secondary to elevated blood pressure. I discussed patient with her primary care provider, Dr. Eid, who would like the patient started on lisinopril 10 mg twice a day. She is given a prescription for the next month. She is to follow-up with her primary care physician next week. I feel she can be discharged safely home with follow-up. Return instructions to the emergency department were reviewed. Disposition is discharged home in stable condition. Radiography Diagnostic Testing: Clinical Impression(s) from Imaging Studies Brain CT 05/11/21 13:26 IMPRESSION: No acute intracranial hemorrhage Electronically Signed: Ochoa Cheng MD at 13:59 EST , Service support , Cervical Spine CT 05/11/21 13:26 IMPRESSION: Multilevel degenerative changes, as described above. No acute findings Likely chronic subluxations at C4-5 and C5-6 as described above Electronically Signed: Ochoa Cheng MD at 14:02 EST , Service support , Discharge Plan Triage Chief Complaint: Head Injury ED Provider: Wan Valenzuela Dx/Rx/DC Orders Clinical Impression: Head pain, Hypertension Instructions: Blood Pressure Check Steps, ED Hypertension New Begin Treatment Prescriptions: New lisinopril 10 mg tablet 10 mg PO BID Qty: 60 RF: 0 No Action levothyroxine [Levoxyl] 75 MCG tablet 75 mcg PO DAILY RF: 0 calcium carbonate 600 MG tablet 1,000 mg PO DAILY RF: 0 cholecalciferol (vitamin D3) [Vitamin D3] 1,000 UNIT tablet 1,000 unit PO DAILY RF: 0 multivitamin with folic acid [Thera] 1 TABLET tablet 1 tab PO DAILY RF: 0 citalopram 20 MG tablet 20 mg PO DAILY RF: 0 biotin 10,000 MCG capsule 10,000 mcg PO DAILY RF: 0 Ibandronate Sodium [Boniva] 150 MG tablet 150 mg PO Q30D RF: 0 zinc 50 MG tablet 50 mg PO DAILY RF: 0 Primary Care Provider: Winnie Eid Referrals: Winnie Eid DO [Primary Care Provider] - 05/17/21 Disposition Disposition: Home, Self Care
[2021-05-11 13:48] VITALS: BP 174/90; PULSE 67; RESP 18; O2SAT 96
[2021-05-11] MEDS: hydrALAZINE 10 MG Tablet PO (14:05)
[2021-05-11 15:12] VITALS: BP 148/71; PULSE 62; RESP 15; O2SAT 97
== END 2021-05-11 15:13 | disposition home or self-care (01) ==
PROVIDERS: Emergency Provider Emergency Medicine; PCP Internal Medicine
DX: R51.9 Headache, unspecified (principal); I10 Essential (primary) hypertension; E03.9 Hypothyroidism, unspecified; Z87.891 Personal history of nicotine dependence
CPT/HCPCS: 70450; 72125; 99283

== ENCOUNTER → 2021-06-06 15:39 | Outpatient (CLI) | payer OTHER, SELFPAY ==
--- NOTE | 2021-06-06 15:41 | RAD_ITS ---
STUDY: X-RAY - LUMBAR SPINE REASON FOR EXAM: Female, 65 years old. ACUTE BACK PAIN TECHNIQUE: 2 view(s) of the lumbar spine were obtained. COMPARISON: None FINDINGS: Normal lumbar lordosis. There is no substantial scoliosis. There is a normal alignment of the vertebrae. Chronic compression fracture of the superior endplate of T10. There is multilevel endplate spondylosis of the lumbar vertebrae. There is multi-level degenerative disc disease with multi-level disc space narrowing. There is no demonstrated fracture. The soft tissue structures are unremarkable. RAD/Lumbar Spine 2 or 3 Views IMPRESSION: Degenerative changes of the spine, as detailed above. Electronically Signed: Aravind Toth DO at 3:46 EST Tel , Service support ,
== END ==
PROVIDERS: PCP Internal Medicine; Referring Provider Nurse Practitioner; Visit Provider Nurse Practitioner
DX: M54.9 Dorsalgia, unspecified (principal)
CPT/HCPCS: 72100

== ENCOUNTER 2021-06-09 11:53 | Emergency (ER) | payer OTHER, SELFPAY ==
[2021-06-09 11:53] VITALS: BP 156/86; PULSE 80; RESP 18; TEMP 36.4; O2SAT 97; BMI 24.7
[2021-06-09 12:34] LABS: Absolute Lymphocyte Count 1.01 X10^3/uL (0.83-4.51); Absolute Neutrophil Count 5.3 X10^3/uL (2.0-7.7); Basophil# 0.05 X10^3/uL; Basophil% 0.7 % (0-1); Eosinophil# 0.09 X10^3/uL; Eosinophils% 1.3 % (0-5); Hematocrit 37.2 % (37-47); Hemoglobin 12.9 g/dL (12.0-15.0); Lymphocyte # 1.01 X10^3/ul (0.83-4.51); Lymphocyte % 14.4 % (19-41); Mean Corp Hgb Conc 34.7 g/dL (32-36); Mean Corpuscular Hgb 32.4 pg (27.0-32.0); Mean Corpuscular Volume 93.5 fL (81-99); Monocyte% 8.5 % (0-10); NRBC Flagged by Analyzer 0 % (0-5); Neutrophil # 5.26 X10^3/uL (2.7-7.7); Neutrophil % 74.8 % (47-70); Platelet Count 288 K/mm3 (150-450); RBC Distribution Width SD 41.8 fl (35.1-43.9); Red Blood Count 3.98 M/mm3 (4.2-5.4)
[2021-06-09 12:46] LABS: Anion Gap 9 (5-15); BUN 10 mg/dL (7-18); BUN/Creat Ratio 14.1 RATIO (10-20); Calcium,Total 9.6 mg/dL (8.5-10.1); Chloride 91 mmol/L (98-107); Creatinine, Serum 0.71 mg/dL (0.55-1.02); EST Glomerular Filtration Rate 88 mL/min (>60); Est Glom Filt Rate - Afr Amer 107 mL/min (>60); Estimated Creatinine Clearance 66.22 ml/min; Glucose 97 mg/dL (74-106); Potassium 4.3 mmol/L (3.5-5.1); Sodium Level 125 mmol/L (136-145)
[2021-06-09] MEDS: 0.9% Normal Saline 1,000 ML 100 ML IV (13:12)
--- NOTE | 2021-06-09 13:22 | EDS_ITS ---
HPI History of Present Illness Chief Complaint: Abn Labs Informant: patient Narrative Narrative: Patient drinks almost 200 ounces of water per day. She was seen by her doctor today in follow-up after a fall that she had that sounded like a simple accident, she states she reached down to adjust her sock and fell over after losing her balance without any prodromal symptoms. She was seen here in the ER for that did not have any labs but she had some as an outpatient, and her sodium was 123. As result of that her doctor sent her here for admission and further evaluation. Patient denies any weakness, confusion, or other recent illness. [facility] Medical History Hypertension Hypothyroidism Incontinence in female Incontinence in female Home Medications calcium carbonate 1,000 mg PO DAILY 06/24/15 [History Last Taken 03/05/19] cholecalciferol (vitamin D3) [Vitamin D3] 1,000 unit PO DAILY 06/24/15 [History Last Taken 03/05/19] levothyroxine [Levoxyl] 75 mcg PO DAILY 06/24/15 [History Last Taken 03/06/19] multivitamin with folic acid [Thera] 1 tab PO DAILY 06/24/15 [History Last Taken 03/05/19] Ibandronate Sodium [Boniva] 150 mg PO Q30D 10/03/18 [History Last Taken 03/05/19] biotin 10,000 mcg PO DAILY 10/03/18 [History Last Taken 03/05/19] citalopram 20 mg PO DAILY 10/03/18 [History Last Taken 03/05/19] zinc 50 mg PO DAILY 03/06/19 [History Last Taken 03/05/19] lisinopril 10 mg PO BID #60 tab 05/11/21 [Rx Last Taken Unknown] Allergy/AdvReac Type Severity Reaction Status Date / Time No Known Allergies Allergy Verified 06/09/21 12:27 Surgical History H/O: hysterectomy History of bladder surgery Social History Smoking Status: Former smoker ROS ROS ED Constitutional Constitutional ED: Denies chills or fever(s) Eyes Eyes: Denies change in vision or diplopia ENT ENT ED: Denies rhinorrhea or sore throat Cardiovascular Cardiovascular: Denies chest pain or palpitations Respiratory/Chest Respiratory/Chest: Denies cough or dyspnea Gastrointestinal Gastrointestinal: Denies abdominal pain, diarrhea, nausea or vomiting Genitourinary Genitourinary ED: Denies dysuria or hematuria Musculoskeletal Musculoskeletal: Denies back pain or neck pain Integumentary Denies abscess or rash Neurologic Neurologic: Denies headache(s), paresthesias or weakness Psychiatric Psychiatric: Denies anxiety or suicidal thoughts EXAM Physical Exam Const Vital Signs: 06/09/21 11:53 06/09/21 12:30 06/09/21 14:03 Temperature 97.5 F L Temperature Source Temporal Pulse Rate 80 68 Respiratory Rate 18 15 Respiratory Effort Normal Respiratory Pattern Normal Blood Pressure 156/86 H Blood Pressure Mean 109 Pulse Ox 97 98 Oxygen Delivery Method Room Air Room Air Positive well nourished and well developed General Appearance ED: well developed and NAD HEENT Reports moist mucous membranes normocephalic and atraumatic Eyes PERRL and EOMs intact bilaterally Neck full ROM and supple Resp normal respiratory effort and clear to auscultation bilaterally Cardio regular rate, regular rhythm and no murmurs GI non-tender and non-distended Auscultation: normoactive bowel sounds Palpation: soft Back/Spine no CVA tenderness General Back: other FROM Extremity normal to inspection General Extremety ED: Negative for edema, pulses abnormal or tenderness General Extremity: Negative for edema or pulses abnormal Neuro oriented x3, CN's II-XII intact bilaterally and no sensory deficits noted Sensorium / Orientation: awake and alert Motor Exam: strength 5/5 throughout Skin no rashes or lesions noted and no wounds MDM MDM MDM Narrative Medical decision making narrative: Sodium is 125. She was given slow isotonic saline at 125/h while in the emergency department. Discussed with nephrology Dr. Aldrich. 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 I gave her most of the liter here, patient was discharged home and I passed on the recommendation for fluid restriction 50-60 ounces per day, and the call to make an appointment with nephrology next week for reevaluation and repeat labs. We discussed reasons to return patient is comfortable with that plan. Did also speak with the patient's PCP prior to discharge, she requested that we add serum osmolality and urine osmolality and urine sodium which we will do prior to her leaving. Lab Data Attestation: I reviewed the patient's lab results. Labs: Laboratory Results - last 24 hr 06/09/21 06/09/21 12:20 12:20 WBC 7.0 RBC 3.98 L Hgb 12.9 Hct 37.2 MCV 93.5 MCH 32.4 H MCHC 34.7 RDW Std Deviation 41.8 RDW Coeff of Tatiana 12.0 Plt Count 288 MPV 8.0 Immature Gran % (Auto) 0.300 Neut % (Auto) 74.8 H Lymph % (Auto) 14.4 L Upton % (Auto) 8.5 Eos % (Auto) 1.3 Baso % (Auto) 0.7 Absolute Neuts (auto) 5.3 Absolute Lymphs (auto) 1.01 Nucleated RBC % 0 Sodium 125 L Potassium 4.3 Chloride 91 L Carbon Dioxide 25.0 Anion Gap 9 BUN 10 Creatinine 0.71 Estim Creat Clear Calc 66.22 Est GFR (MDRD) Af Amer 107 Est GFR (MDRD) Non-Af 88 BUN/Creatinine Ratio 14.1 Glucose 97 Calcium 9.6 Discharge Plan Triage Chief Complaint: Abn Labs ED Provider: Allan Reid Dx/Rx/DC Orders Clinical Impression: Hyponatremia, Psychogenic polydipsia Instructions: ED Hyponatremia Prescriptions: No Action levothyroxine [Levoxyl] 75 MCG tablet 75 mcg PO DAILY RF: 0 calcium carbonate 600 MG tablet 1,000 mg PO DAILY RF: 0 cholecalciferol (vitamin D3) [Vitamin D3] 1,000 UNIT tablet 1,000 unit PO DAILY RF: 0 multivitamin with folic acid [Thera] 1 TABLET tablet 1 tab PO DAILY RF: 0 citalopram 20 MG tablet 20 mg PO DAILY RF: 0 biotin 10,000 MCG capsule 10,000 mcg PO DAILY RF: 0 Ibandronate Sodium [Boniva] 150 MG tablet 150 mg PO Q30D RF: 0 zinc 50 MG tablet 50 mg PO DAILY RF: 0 lisinopril 10 mg tablet 10 mg PO BID Qty: 60 RF: 0 Primary Care Provider: Winnie Eid Referrals: Desiree Kamara MD [STAFF PHYSICIAN] - (call for appt next week) Winnie Eid DO [Primary Care Provider] - Activity Restrictions/Additional Instructions: Limit your fluid intake, including water, to 50-60 ounces per day Disposition Disposition: Home, Self Care
[2021-06-09 14:03] VITALS: PULSE 68; RESP 15; O2SAT 98
[2021-06-09] MEDS: 0.9% Normal Saline 1,000 ML 125 ML IV (14:33)
[2021-06-09 16:12] LABS: Osmolality, Serum 269 mOsm/KG (280-301)
[2021-06-09 16:20] VITALS: BP 155/81; PULSE 72; RESP 14; O2SAT 96
[2021-06-09 16:33] VITALS: BP 173/85; PULSE 67; RESP 12; O2SAT 99
[2021-06-09 16:52] LABS: Urine Sodium 90 mmol/L (Not Establ.)
[2021-06-09 17:45] LABS: Osmolality, Urine 324 mOsm/KG
== END 2021-06-09 16:37 | disposition home or self-care (01) ==
PROVIDERS: Emergency Provider Emergency Medicine; PCP Internal Medicine
DX: E87.1 Hypo-osmolality and hyponatremia (principal); F45.9 Somatoform disorder, unspecified; R63.1 Polydipsia; I10 Essential (primary) hypertension; E03.9 Hypothyroidism, unspecified; Z87.891 Personal history of nicotine dependence
CPT/HCPCS: 80048; 83930; 83935; 84300; 85025; 96360; 96361; 99284; J7030

== ENCOUNTER 2021-06-20 11:06 | Outpatient (CLI) | payer OTHER, SELFPAY ==
--- NOTE | 2021-06-20 11:07 | RAD_ITS ---
STUDY: X-RAY - PELVIS AND LEFT HIP REASON FOR EXAM: Female, 65 years old. PAIN TECHNIQUE: 3 views of the pelvis and hip. COMPARISON: None. FINDINGS: There is a non-specific bowel gas pattern. Normal visualized soft tissue structures. Normal bilateral iliac wings, sacroiliac joints and visualized sacrum. Normal bilateral superior and inferior pubic rami. There is narrowing with sclerosis of the pubic symphysis. Normal bilateral ischial tuberosities. Normal visualized femoral head. There is osteoarthritic spur formation of the acetabular rim. There is moderate articular joint space narrowing of the hip. RAD/HIP, UNI W/ Pelvis 2-3 Views IMPRESSION: Degenerative changes. No fracture is seen. Electronically Signed: Rocky Lnusford MD at 11:47 EST , Service support ,
== END 2021-06-20 23:59 | disposition home or self-care (01) ==
LOC: MTRAD 11:07
PROVIDERS: PCP Internal Medicine; Referring Provider Internal Medicine; Visit Provider Internal Medicine
DX: M25.552 Pain in left hip (principal)
CPT/HCPCS: 73502

== ENCOUNTER 2021-07-15 11:32 | Outpatient (CLI) | payer OTHER, SELFPAY ==
[2021-07-15 15:31] LABS: Creatinine, Serum 0.73 mg/dL (0.55-1.02); EST Glomerular Filtration Rate 85 mL/min (>60); Est Glom Filt Rate - Afr Amer 102 mL/min (>60)
== END 2021-07-15 23:59 | disposition short-term general hospital (02) ==
LOC: MTLAB 11:33
PROVIDERS: PCP Internal Medicine; Referring Provider Physician Assistant; Visit Provider Physician Assistant
DX: N28.9 Disorder of kidney and ureter, unspecified (principal)
CPT/HCPCS: 36415; 82565

== ENCOUNTER 2021-08-03 13:30 | Outpatient (CLI) | payer OTHER, SELFPAY ==
[2021-08-03 13:37] LABS: Bacteria 0 SEEN /hpf (None Seen); Mucous, Urine 0 SEEN /hpf (<or=2+); Red Blood Cells-Urine 0 SEEN /hpf (0-5); Squamous Epithelial Cells - UA 0 SEEN /hpf (5-10); White Blood Cells 0 SEEN /hpf (0-5)
[2021-08-03 15:09] LABS: Erythrocyte Sedimentation Rate 6 mm/hr (0-30)
[2021-08-03 15:11] LABS: Absolute Lymphocyte Count 2.15 X10^3/uL (0.83-4.51); Absolute Neutrophil Count 4.6 X10^3/uL (2.0-7.7); Basophil# 0.04 X10^3/uL; Basophil% 0.5 % (0-1); Eosinophil# 0.08 X10^3/uL; Eosinophils% 1.1 % (0-5); Hematocrit 37.3 % (37-47); Lymphocyte # 2.15 X10^3/ul (0.83-4.51); Lymphocyte % 28.5 % (19-41); Mean Corp Hgb Conc 34.9 g/dL (32-36); Mean Corpuscular Hgb 33.5 pg (27.0-32.0); Mean Corpuscular Volume 96.1 fL (81-99); Mean Platelet Vol. 7.7 fl (6.2-12.0); Monocyte# 0.63 X10^3/uL; Monocyte% 8.3 % (0-10); NRBC Flagged by Analyzer 0 % (0-5); Neutrophil # 4.63 X10^3/uL (2.7-7.7); Neutrophil % 61.3 % (47-70); Platelet Count 398 K/mm3 (150-450); RBC Distribution Width CV 12.4 % (11.6-14.6); RBC Distribution Width SD 43.8 fl (35.1-43.9); Red Blood Count 3.88 M/mm3 (4.2-5.4); White Blood Count 7.6 K/mm3 (4.4-11.0)
[2021-08-03 15:37] LABS: ALB/GLOB Ratio 1.1 RATIO (0.9-2.4); AST(SGOT) 13 U/L (15-37); Alanine Aminotransfer ALT/SGPT 22 U/L (13-56); Albumin, Serum 3.8 g/dL (3.2-5.0); Alkaline Phosphatase 90 U/L (45-117); Anion Gap 6 (5-15); BUN 13 mg/dL (7-18); BUN/Creat Ratio 16.3 RATIO (10-20); CRP, High Sensitivity Cardiac 1.13 mg/L; Calcium,Total 9.3 mg/dL (8.5-10.1); Chloride 92 mmol/L (98-107); EST Glomerular Filtration Rate 77 mL/min (>60); Est Glom Filt Rate - Afr Amer 93 mL/min (>60); Globulin 3.4 g/dL (2.2-4.2); Glucose 89 mg/dL (74-106); Potassium 4.4 mmol/L (3.5-5.1); Protein, Total 7.2 g/dL (6.4-8.2); Sodium Level 128 mmol/L (136-145)
[2021-08-03 15:45] LABS: Color, Urine Straw (Yellow); Glucose, Dipstick Normal (Normal); Ketone-Dipstick Negative (Negative); Leukocyte Esterase-Dipstick Negative /ul (Negative); Nitrite-Dipstick Negative (Negative); Occult Blood-Urine 10 /ul (Negative); Protein-Dipstick Negative (Negative); Urine Bilirubin Dipstick Negative (Negative); Urine Clarity Clear (Clear); Urine Urobilinogen Normal (Normal)
[2021-08-08 11:08] LABS: PROEL- A/G Ratio 1.3 (0.7-1.7); PROEL- Albumin 3.7 g/dL (2.9-4.4); PROEL- Alpha-1 Globulin 0.2 g/dL (0.0-0.4); PROEL- Alpha-2 Globulin 0.7 g/dL (0.4-1.0); PROEL- Gamma Globulin 0.9 g/dL (0.4-1.8); PROEL- Globulin, Total 2.8 g/dL (2.2-3.9); PROEL- TOTAL PROTEIN 6.5 g/dL (6.0-8.5); PROELU- Albumin, Urine 35.5 % (.); PROELU- Alpha-1-Globulin,Ur 7.4 % (.); PROELU- Alpha-2-Globulin,Ur 20.9 % (.); PROELU- Beta Globulin, Ur 23.2 % (.); PROELU- Gamma Globulin, Ur 13.1 % (.)
[2021-08-08 13:33] LABS: Total Protein, Ur < 4.0 mg/dL (Not Estab.)
== END 2021-08-03 23:59 | disposition home or self-care (01) ==
LOC: MTLAB 13:32
PROVIDERS: PCP Internal Medicine; Referring Provider Orthopaedic Surgery; Visit Provider Orthopaedic Surgery
DX: R93.89 Abnormal findings on diagnostic imaging of other specified body structures (principal); M51.17 Intervertebral disc disorders with radiculopathy, lumbosacral region
CPT/HCPCS: 36415; 80053; 81001; 84165; 84166; 85025; 85652; 86141

== ENCOUNTER 2021-08-09 07:28 | Outpatient (CLI) | payer OTHER, SELFPAY ==
--- NOTE | 2021-08-09 07:35 | NM_ITS ---
CLINICAL: 65-year-old female with history of back discomfort. WHOLE BODY 99m Tc MDP RADIONUCLIDE BONE SCINTIGRAPHY COMPARISON: Plain film radiograph report lumbar spine 06/06/2021 FINDINGS: Following the intravenous administration of 19.0 mCi of 99m Tc MDP, whole body bone images reveal: 1. Increased radiopharmaceutical concentration is defined in the 11th thoracic vertebra diffusely, bilateral sacral ala and midline posterior sacrum, the coccyx, the right anterolateral sixth-eighth ribs at the costochondral junction, left proximal humeral metaphysis. 2. Facilitated uptake is observed in the acromioclavicular compartment of the right shoulder, sternoclavicular and glenohumeral compartments of both shoulders, the right knee, right ankle. 3. The remaining skeletal structures are scintigraphically unremarkable with normal-appearing renal images and urinary bladder activity identified. Facilitated uptake is noted in the bilateral maxilla and interorbital aspect of the skull most consistent with periostitis. NM/Bone Scan Whole Body IMPRESSION: 1. The increase in radiopharmaceutical concentration observed in the thoracic vertebra, left proximal humerus, right and left sacral ala, posterior midline sacrum, the coccyx, the right anterolateral sixth-eighth ribs likely represent trauma-fracture. Plain film radiography correlation may be of benefit for further evaluation. 2. 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 Electronically Signed: Fabiano Byrnes DO at 22:23 EST ,
== END 2021-08-09 23:59 | disposition home or self-care (01) ==
PROVIDERS: PCP Internal Medicine; Referring Provider Orthopaedic Surgery; Visit Provider Orthopaedic Surgery
DX: S22.070A Wedge compression fracture of T9-T10 vertebra, initial encounter for closed fracture (principal); M48.48XA Fatigue fracture of vertebra, sacral and sacrococcygeal region, initial encounter for fracture; M89.9 Disorder of bone, unspecified
CPT/HCPCS: 78306; A9503

== ENCOUNTER 2021-09-27 11:46 | Outpatient (CLI) | payer MEDICARE, OTHER, SELFPAY ==
--- NOTE | 2021-09-27 11:48 | BI_ITS ---
MAMMOGRAPHY - BILATERAL SCREENING REASON FOR EXAM: Female, 66 years old. Routine annual screening examination. PERTINENT HISTORY: Non-contributory. Bilateral breast implants. TECHNIQUE: Digital bilateral breast amy (3D mammographic acquisition) in the CC and MLO projections. 2-D mediolateral oblique (MLO) and craniocaudad (CC) views of both breasts were obtained. CAD: Full Field Digital Mammography with Computer Added Detection was performed. COMPARISON: Comparison is made with prior study dated 01/10/2021 and 07/07/2019. FINDINGS: Breast Composition: There are scattered areas of fibroglandular density. There are no dominant masses or suspicious calcifications. Stable appearance of the bilateral breast implants. Stable appearance of the bilateral axillary lymph nodes. No other significant abnormalities are identified. There has been no significant change since the prior study. BI/SCRN MAMM (CAD)W/AMY BILAT IMPRESSION: Stable bilateral screening mammogram. Yearly follow-up mammogram recommended. (A) ASSESSMENT CATEGORY: BIRADS Category 2: Benign. A letter regarding these results will be sent to the patient by the facility within 30 days. Approximately 10% of breast cancers are not detected by mammography. A normal mammogram should not delay biopsy of a clinically suspicious abnormality. [id number] Electronically Signed: Rocky Lunsford MD at 13:46 EDT ,
[2021-09-27 15:41] LABS: Urine Sodium 26 mmol/L (Not Establ.)
[2021-09-27 15:55] LABS: Anion Gap 6 (5-15); BUN 14 mg/dL (7-18); BUN/Creat Ratio 17.6 RATIO (10-20); Chloride 95 mmol/L (98-107); EST Glomerular Filtration Rate 77 mL/min (>60); Est Glom Filt Rate - Afr Amer 93 mL/min (>60); Glucose 98 mg/dL (74-106); Potassium 4.9 mmol/L (3.5-5.1); Sodium Level 128 mmol/L (136-145)
[2021-09-27 16:36] LABS: Osmolality, Urine 577 mOsm/KG
== END 2021-09-27 23:59 | disposition home or self-care (01) ==
PROVIDERS: Internal Medicine Nephrology; PCP Internal Medicine; Referring Provider Obstetrics & Gynecology; Visit Provider Obstetrics & Gynecology
DX: Z12.31 Encounter for screening mammogram for malignant neoplasm of breast (principal); Z98.82 Breast implant status
CPT/HCPCS: 36415; 77063; 77067; 80048; 82533; 83935; 84300

== ENCOUNTER → 2022-01-27 | Outpatient (CLI) | payer MEDICARE, OTHER, SELFPAY | END | disposition home or self-care (01) | LOC: LABSPEC 13:47 | PROVIDERS: PCP Family Medicine; Referring Provider Family Medicine; Visit Provider Family Medicine | DX: R19.7 Diarrhea, unspecified (principal) | CPT/HCPCS: 87177; 87209; 87493; 87506 ==

== ENCOUNTER → 2022-02-02 | Outpatient (CLI) | payer MEDICARE, OTHER, SELFPAY ==
[2022-02-02 15:55] LABS: Anion Gap 6 (5-15); BUN 9 mg/dL (7-18); BUN/Creat Ratio 10.6 RATIO (10-20); Calcium,Total 9.3 mg/dL (8.5-10.1); Chloride 100 mmol/L (98-107); Creatinine, Serum 0.85 mg/dL (0.55-1.02); EST Glomerular Filtration Rate 71 mL/min (>60); Est Glom Filt Rate - Afr Amer 86 mL/min (>60); Glucose 100 mg/dL (74-106); Osmolality, Urine 504 mOsm/KG; Potassium 4.3 mmol/L (3.5-5.1); Sodium Level 133 mmol/L (136-145)
== END | disposition home or self-care (01) ==
LOC: MTLAB 12:59
PROVIDERS: PCP Family Medicine; Referring Provider Internal Medicine Nephrology; Visit Provider Internal Medicine Nephrology
DX: E87.1 Hypo-osmolality and hyponatremia (principal)
CPT/HCPCS: 36415; 80048; 83935

== ENCOUNTER → 2022-02-28 | Outpatient (CLI) | payer MEDICARE, OTHER, SELFPAY ==
[2022-02-28 18:33] LABS: CRP < 2.90 mg/L (0.0-3.0)
[2022-03-02 16:09] LABS: Endomysial Antibody IgA Negative (Negative)
[2022-03-02 16:34] LABS: Immunoglobulin A 213 mg/dL (87-352); t-Transglutaminase IgA <2 U/mL (0-3)
== END | disposition home or self-care (01) ==
LOC: MTLAB 15:27
PROVIDERS: PCP Family Medicine; Referring Provider Internal Medicine Gastroenterology; Visit Provider Internal Medicine Gastroenterology
DX: R19.7 Diarrhea, unspecified (principal)
CPT/HCPCS: 36415; 82784; 83516; 86140; 86255

== ENCOUNTER → 2022-06-14 | Outpatient (CLI) | payer MEDICARE, OTHER, SELFPAY ==
--- NOTE | 2022-06-14 10:17 | RAD_ITS ---
STUDY: X-RAY - THORACIC SPINE REASON FOR EXAM: Female, 66 years old. PAIN TECHNIQUE: 3 view(s) of the thoracic spine were obtained. COMPARISON: 10/30/2017. FINDINGS: Normal kyphosis of the thoracic spine. There is no substantial scoliosis. There is there is an old compression fracture of T9. Normal disc space heights. The soft tissue structures are unremarkable. RAD/Thoracic Spine 2 Views IMPRESSION: All compression fracture of T9. There has been no significant change since 10/30/2017. Electronically Signed: Zara Brown MD at 5:58 EST ,
== END | disposition home or self-care (01) ==
LOC: MTRAD 10:06
PROVIDERS: PCP Family Medicine; Referring Provider Family Medicine; Visit Provider Family Medicine
DX: M54.6 Pain in thoracic spine (principal)
CPT/HCPCS: 72070

== ENCOUNTER → 2022-07-08 | Outpatient (CLI) | payer MEDICARE, OTHER, SELFPAY ==
--- NOTE | 2022-07-08 08:00 | MRI_ITS ---
STUDY: MRI THORACIC SPINE WITHOUT CONTRAST REASON FOR EXAM: Female, 66 years old. compression fracture of spine, UPPER BACK PAIN TECHNIQUE: Standardized fat and water weighted pulse sequences were obtained in the sagittal and axial planes. COMPARISON: June 14, 2022 plain films FINDINGS: Thoracic spine is aligned. There is subacute healing compression fracture of T5. There is chronic compression fracture of T9 and T11. There is mild posterior inferior cortical retropulsion of T5 without canal or cord compression. There is disc endplate osteophyte and disc bulge at T8-T9 and T10-T11 without canal compression. There is heterogeneous osteoporotic and degenerative marrow conversion. There are no marrow destructive lesions. Evaluation of marrow in the T5 vertebral body is difficult due to superimposed residual fracture related edema. Paraspinous soft tissues are normal. Canal is patent. Spinal cord is normal in size, shape and signal and terminates at L1. MRI/Spine Thoracic (Routine) IMPRESSION: 1. Subacute T5 compression fracture. 2. Chronic T9 and T11 compression fractures. 3. Patent thecal sac, no neural compression. Electronically Signed: Addison Lopez MD at 15:13 EST ,
== END | disposition home or self-care (01) ==
LOC: MRI 07:55
PROVIDERS: PCP Family Medicine; Referring Provider Family Medicine; Visit Provider Family Medicine
DX: M48.54XA Collapsed vertebra, not elsewhere classified, thoracic region, initial encounter for fracture (principal); M51.84 Other intervertebral disc disorders, thoracic region; M51.24 Other intervertebral disc displacement, thoracic region
CPT/HCPCS: 72146

== ENCOUNTER → 2022-07-18 | Outpatient (CLI) | payer MEDICARE, OTHER, SELFPAY ==
[2022-07-18 15:36] LABS: Absolute Lymphocyte Count 1.47 X10^3/uL (0.83-4.51); Absolute Neutrophil Count 4.4 X10^3/uL (2.0-7.7); Basophil# 0.06 X10^3/uL; Basophil% 0.9 % (0-1); Eosinophil# 0.04 X10^3/uL; Eosinophils% 0.6 % (0-5); Hematocrit 40.6 % (37-47); Hemoglobin 13.8 g/dL (12.0-15.0); Lymphocyte # 1.47 X10^3/ul (0.83-4.51); Lymphocyte % 22.3 % (19-41); Mean Corpuscular Hgb 32.2 pg (27.0-32.0); Mean Corpuscular Volume 94.9 fL (81-99); Mean Platelet Vol. 7.6 fl (6.2-12.0); Monocyte# 0.56 X10^3/uL; Monocyte% 8.5 % (0-10); NRBC Flagged by Analyzer 0 % (0-5); Neutrophil # 4.44 X10^3/uL (2.7-7.7); Neutrophil % 67.2 % (47-70); Platelet Count 450 K/mm3 (150-450); RBC Distribution Width SD 44.9 fl (35.1-43.9); Red Blood Count 4.28 M/mm3 (4.2-5.4); White Blood Count 6.6 K/mm3 (4.4-11.0)
[2022-07-18 16:13] LABS: AST(SGOT) 14 U/L (15-37); Alanine Aminotransfer ALT/SGPT 23 U/L (13-56); Albumin, Serum 3.5 g/dL (3.2-5.0); Alkaline Phosphatase 78 U/L (45-117); Anion Gap 9 (5-15); BUN 8 mg/dL (7-18); BUN/Creat Ratio 10.1 RATIO (10-20); Chloride 91 mmol/L (98-107); Cholesterol 186 mg/dL (200); Creatinine, Serum 0.79 mg/dL (0.55-1.02); EST Glomerular Filtration Rate 77 mL/min (>60); Est Glom Filt Rate - Afr Amer 93 mL/min (>60); Globulin 3.5 g/dL (2.2-4.2); Glucose 94 mg/dL (74-106); High Density Lipoprotein 66 mg/dL; Sodium Level 127 mmol/L (136-145); Thyroid Stim Hormone (TSH) 0.69 uIU/mL (0.358-3.74); Triglycerides 142 mg/dL; Very Low Density Lipoprotein 28 mg/dL (5-40)
== END | disposition home or self-care (01) ==
LOC: MFPLAB 12:12
PROVIDERS: PCP Family Medicine; Visit Provider Family Medicine
DX: I10 Essential (primary) hypertension (principal); E03.9 Hypothyroidism, unspecified
CPT/HCPCS: 36415; 80053; 80061; 84443; 85025

== ENCOUNTER → 2022-07-27 | Outpatient (CLI) | payer MEDICARE, OTHER, SELFPAY ==
--- NOTE | 2022-07-27 09:59 | BD_ITS ---
STUDY: DUAL ENERGY X-RAY ABSORPTIOMETRY / DXA REASON FOR EXAM: Female, 66 years old. M810 TECHNIQUE: Bone Mineral Density (BMD) measurements of lumbar spine and bilateral hips were obtained. COMPARISON: Comparison is made with prior study dated 07/13/2020. FINDINGS: Lumbar Spine (L1-L4): g/cm2 (0.877) / T-score (-1.5) / Z-score (0.3) Findings are suggestive of osteopenia with a low fracture risk. Left Femur Total: g/cm2 (0.708) / T-score (-1.9) / Z-score (-0.6) Left Femoral Neck: g/cm2 (0.570) / T-score (-2.5) / Z-score (-1.0) Right Femur Total: g/cm2 (0.706) / T-score (-1.9) / Z-score (-0.7) Right Femoral Neck: g/cm2 (0.570) / T-score (-2.5) / Z-score (-1.0) The T-Scores on the most recent prior examination were: Lumbar Spine (L1-L4): There has been worsening of bone density since the previous examination. Left Femur Total: which represents a worsening of 0.4%. Right Femur Total: which represents an improvement of 4.3%. BD/Dexa Bone Density Study IMPRESSION: The patient is considered osteopenic as outlined below according to World Myles Organization (WHO) criteria with a high fracture risk. There has been worsening of bone density since the previous examination. Reference Information: The T-score is the number of standard deviations above or below the standard which is normal for young adults at their peak bone mineral density. The World Health Organization (WHO) interprets the T-scores as follows: Above -1 Normal bone density Between -1 and -2.5 Osteopenia Equal to / or below -2.5 Osteoporosis As a practical clinical guideline, osteopenia may be graded as follows: Mild -1 through -1.5 Moderate -1.6 through -2.0 Severe -2.1 through -2.4 The Z-score is the number of standard deviations above or below age-matched controls. A Z-score of less than -1.5 would be considered abnormal. References: 1. NIH Osteoporosis and Related Bone Diseases www osteo.org 2. International Society for Clinical Densitometry www iscd.org 3. National Osteoporosis Foundation www nof.org Electronically Signed: Rocky Lunsford MD at 14:52 EST ,
== END | disposition home or self-care (01) ==
LOC: OPBD 09:51
PROVIDERS: PCP Family Medicine; Referring Provider Family Medicine; Visit Provider Family Medicine
DX: Z13.820 Encounter for screening for osteoporosis (principal); M81.0 Age-related osteoporosis without current pathological fracture
CPT/HCPCS: 77080

== ENCOUNTER → 2022-08-16 | Outpatient (CLI) | payer MEDICARE, OTHER, SELFPAY ==
[2022-08-16 16:06] LABS: Protein, Urine (Random) 47.4 mg/dL (<11.9); Protein:Creat Ratio 210 mg/g CRE (0-200)
[2022-08-16 16:11] LABS: Anion Gap 8 (5-15); BUN 15 mg/dL (7-18); BUN/Creat Ratio 18.6 RATIO (10-20); Calcium,Total 9.4 mg/dL (8.5-10.1); Chloride 99 mmol/L (98-107); EST Glomerular Filtration Rate 76 mL/min (>60); Est Glom Filt Rate - Afr Amer 92 mL/min (>60); Glucose 86 mg/dL (74-106); Potassium 4.4 mmol/L (3.5-5.1); Sodium Level 133 mmol/L (136-145)
== END | disposition home or self-care (01) ==
LOC: MTLAB 11:41
PROVIDERS: PCP Family Medicine; Visit Provider Internal Medicine Nephrology
DX: E87.1 Hypo-osmolality and hyponatremia (principal)
CPT/HCPCS: 36415; 80048; 82570; 84156

== ENCOUNTER → 2022-10-12 | Outpatient (CLI) | payer MEDICARE, OTHER, SELFPAY ==
--- NOTE | 2022-10-12 09:37 | BI_ITS ---
MAMMOGRAPHY - BILATERAL SCREENING REASON FOR EXAM: Female, 67 years old. Routine annual screening examination. PERTINENT HISTORY: Non-contributory. History of prior bilateral breast implants. TECHNIQUE: Digital bilateral breast amy (3D mammographic acquisition) in the CC and MLO projections. 2-D mediolateral oblique (MLO) and craniocaudad (CC) views of both breasts were obtained. CAD: Full Field Digital Mammography with Computer Added Detection was performed. COMPARISON: Comparison is made with prior study September 27, 2021 and January 10, 2021. FINDINGS: Breast Composition: There are scattered areas of fibroglandular density. There are no dominant masses or suspicious calcifications. Stable appearance of the bilateral breast implants. Calcification along the anterior margin. Stable benign-appearing bilateral axillary vessels. No other significant abnormalities are identified. There has been no significant change since the prior study. BI/SCRN MAMM (CAD)W/AMY BILAT IMPRESSION: Stable bilateral screening mammogram. Yearly follow-up mammogram recommended. (A) ASSESSMENT CATEGORY: BIRADS Category 2: Benign. A letter regarding these results will be sent to the patient by the facility within 30 days. Approximately 10% of breast cancers are not detected by mammography. A normal mammogram should not delay biopsy of a clinically suspicious abnormality. [id number] Electronically Signed: Rocky Lunsford MD at 11:49 EDT ,
== END | disposition home or self-care (01) ==
LOC: OPBI 09:36
PROVIDERS: PCP Family Medicine; Referring Provider Family Medicine; Visit Provider Family Medicine
DX: Z12.31 Encounter for screening mammogram for malignant neoplasm of breast (principal)
CPT/HCPCS: 77063; 77067

== ENCOUNTER → 2023-02-14 | Outpatient (CLI) | payer MEDICARE, OTHER, SELFPAY ==
[2023-02-14 15:35] LABS: Anion Gap 5 (5-15); BUN 11 mg/dL (7-18); BUN/Creat Ratio 13.9 RATIO (10-20); Chloride 100 mmol/L (98-107); Creatinine, Serum 0.79 mg/dL (0.55-1.02); EST Glomerular Filtration Rate 77 mL/min (>60); Est Glom Filt Rate - Afr Amer 93 mL/min (>60); Glucose 106 mg/dL (74-106); Potassium 3.8 mmol/L (3.5-5.1); Sodium Level 130 mmol/L (136-145)
[2023-02-14 17:40] LABS: Urine Sodium 45 mmol/L (Not Establ.)
[2023-02-14 19:28] LABS: Osmolality, Urine 467 mOsm/KG
== END | disposition home or self-care (01) ==
PROVIDERS: PCP Family Medicine; Referring Provider Internal Medicine Nephrology; Visit Provider Internal Medicine Nephrology
DX: I10 Essential (primary) hypertension (principal)
CPT/HCPCS: 36415; 80048; 83935; 84300

== ENCOUNTER 2023-06-28 10:04 | Emergency (ER) | payer MEDICARE, OTHER, SELFPAY ==
[2023-06-28] VITALS (7 sets, daily range): BP systolic 116–144; BP diastolic 72–88; PULSE 70–78; RESP 16; TEMP 35.9; O2SAT 97; BMI 25.0
--- NOTE | 2023-06-28 10:27 | RAD_ITS ---
STUDY: X-RAY CHEST REASON FOR EXAM: Female, 67 years old. Chest pain TECHNIQUE: Single AP portable view of the chest. COMPARISON: Comparison is made with prior study June 05, 2019. FINDINGS: EKG electrodes are seen. The lungs are clear and expanded. Scattered calcified granulomas. There is no demonstrated pleural abnormality. Normal size heart. Normal mediastinum and delia. Normal visualized pulmonary arteries. There is atherosclerotic calcification of the aortic arch with tortuosity. There are diffuse degenerative changes of the visualized thoracic spine. Loss of height of the T11 vertebrae. Normal visualized ribs, clavicles, and shoulders. There is no demonstrated abnormality of the visualized soft tissue structures of the upper abdomen. RAD/Chest 1 View (Portable) IMPRESSION: No acute abnormality is seen. Electronically Signed: Rocky Lunsford MD at 12:00 EST ,
--- NOTE | 2023-06-28 10:30 | EKG12_ITS ---
Test Reason : CP Blood Pressure : / mmHG Vent. Rate : 072 BPM Atrial Rate : 072 BPM P-R Int : 148 ms QRS Dur : 076 ms QT Int : 382 ms P-R-T Axes : 061 -20 054 degrees QTc Int : 418 ms Normal sinus rhythm Normal ECG Confirmed by MARIA LUZ LEUNG, RICHARD ([id number]), news editor ANAT AYALA ([id number]) on 06/29/2023 7:19:42 AM Referred By: Confirmed By:RICHARD BRAGA MD
[2023-06-28 10:50] LABS: Absolute Lymphocyte Count 1.77 X10^3/uL (0.83-4.51); Absolute Neutrophil Count 10.4 X10^3/uL (2.0-7.7); Basophil# 0.04 X10^3/uL; Basophil% 0.3 % (0-1); Eosinophil# 0.05 X10^3/uL; Eosinophils% 0.4 % (0-5); Hematocrit 40.7 % (37-47); Hemoglobin 13.8 g/dL (12.0-15.0); Lymphocyte # 1.77 X10^3/ul (0.83-4.51); Lymphocyte % 13.1 % (19-41); Mean Corp Hgb Conc 33.9 g/dL (32-36); Mean Corpuscular Hgb 32.1 pg (27.0-32.0); Mean Corpuscular Volume 94.7 fL (81-99); Mean Platelet Vol. 7.4 fl (6.2-12.0); Monocyte# 1.17 X10^3/uL; Monocyte% 8.7 % (0-10); NRBC Flagged by Analyzer 0 % (0-5); Neutrophil # 10.39 X10^3/uL (2.7-7.7); Neutrophil % 76.8 % (47-70); Platelet Count 427 K/mm3 (150-450); RBC Distribution Width CV 12.6 % (11.6-14.6); RBC Distribution Width SD 43.8 fl (35.1-43.9); White Blood Count 13.5 K/mm3 (4.4-11.0)
[2023-06-28] MEDS: Aspirin 81 MG TAB.CHEW 324 MG PO (11:11)
[2023-06-28] MEDS: Nitroglycerin SL (ED/IMG/CATH) 0.4 MG TABLET 0.400000000000000022 MG SL ×3 (11:11→11:42)
[2023-06-28 11:16] LABS: Anion Gap 6 (5-15); BUN 14 mg/dL (7-18); Calcium,Total 8.5 mg/dL (8.5-10.1); Chloride 99 mmol/L (98-107); Creatinine, Serum 0.78 mg/dL (0.55-1.02); EST Glomerular Filtration Rate 79 mL/min (>60); Est Glom Filt Rate - Afr Amer 95 mL/min (>60); Estimated Creatinine Clearance 60.01 ml/min; Glucose 114 mg/dL (74-106); Potassium 3.9 mmol/L (3.5-5.1); Sodium Level 129 mmol/L (136-145); Troponin-I HS (w/2H Reflex) 5 pg/mL (3.0-54.0)
--- NOTE | 2023-06-28 11:45 | ED.VIS.CHEST ---
HPI History of Present Illness Chief Complaint: Chest Pain Detail of Chief Complaint: Midsternal chest discomfort radiating to left trapezius area Informant: patient Onset/Context/Timing Onset: Today (0600) Activity at onset: sudden Timing: Continuous Quality: Positive for Aching and Tightness Location: Substernal Current Severity: Moderate Maximum Severity: Severe Worsened By: Exertion (Possibly with walking); Not Worsened By Movement of Arm, Movement of Torso, Eating or Palpation Relieved By: Nothing Associated Symptoms: Positive for Diaphoresis and Dyspnea; Negative for Cough, Fever, Lightheadedness, Acid Reflux or Palpitations Narrative Narrative: Patient is a 67-year-old woman with history of hypertension and is to the emergency department because of substernal/central chest pain that awoke her from sleep radiating to the left trapezius area with shortness of breath and flushed sensation/diaphoresis. She denies history of coronary artery disease. She is a non-smoker. She is still experiencing discomfort. She does not take aspirin daily. She is on an NSAID for left knee pain. She denies fever, chills or night sweats. She denies upper respiratory tract infectious symptoms. She denies abdominal pain, vomiting, diarrhea, melena or maroon-colored stool. She denies history of VTE. She denies leg pain, swelling or discoloration. She denies pleuritic chest pain. Prior Similar Symptoms: No Recent Illness/Hospitalization: No CVD Risk Factors: Positive for Hypertension; Negative for Diabetes, Hypercholesterolemia, Family History 1' </=55 or Smoking PE Risk Factors: Negative for Recent Travel/Surgery, Recent Immobilization, Prior DVT or PE, Cancer or OCP + Smoking + >/=35 TAD Risk Factors: Positive for Hypertension; Negative for Marfan's Syndrome or Family History [facility] Medical History Hypertension Hypothyroidism Incontinence in female Incontinence in female Home Medications calcium carbonate 600 mg calcium (1,500 mg) tablet 1,000 mg PO DAILY 06/24/15 [History Last Taken 03/05/19] cholecalciferol (vitamin D3) 25 mcg (1,000 unit) tablet (Vitamin D3) 50 mcg PO DAILY 06/24/15 [History Last Taken 03/05/19] levothyroxine 75 mcg tablet (Levoxyl) 75 mcg PO DAILY 06/24/15 [History Last Taken 03/06/19] multivitamin with folic acid 400 mcg tablet (Thera) 1 tab PO DAILY 06/24/15 [History Last Taken 03/05/19] biotin 10,000 mcg capsule 5,000 mcg PO DAILY 10/03/18 [History Last Taken 03/05/19] duloxetine 30 mg capsule,delayed release 30 mg PO DAILY 06/28/23 [History Last Taken Unknown] lisinopril 10 mg tablet 10 mg PO DAILY 06/28/23 [History Last Taken Unknown] meloxicam 15 mg tablet 15 mg PO DAILY 06/28/23 [History Last Taken Unknown] pantoprazole 40 mg tablet,delayed release (Protonix) 40 mg PO DAILY #20 tabs 06/28/23 [Rx Last Taken Unknown] tramadol 50 mg tablet 50 mg PO QHS 06/28/23 [History Last Taken Unknown] Allergy/AdvReac Type Severity Reaction Status Date / Time No Known Allergies Allergy Verified 06/28/23 10:05 Surgical History H/O: hysterectomy History of bladder surgery Social History (Updated 06/28/23 @ 11:[address] Rober Wall MD) household members: spouse Smoking Status: Former smoker substance use type: does not use ROS ROS ED Constitutional Constitutional ED: Denies chills, fever(s) or subjective Eyes Eyes: Reports none ENT ENT ED: Denies ear pain, rhinorrhea or sore throat Cardiovascular Cardiovascular: Reports as per HPI; Denies orthopnea or paroxysmal nocturnal dyspnea Respiratory/Chest Respiratory/Chest: Reports dyspnea; Denies cough, dyspnea on exertion, orthopnea or paroxysmal nocturnal dyspnea Gastrointestinal Gastrointestinal: Denies abdominal pain, diarrhea, melena or vomiting Genitourinary Genitourinary ED: Denies dysuria, hematuria or urinary frequency Musculoskeletal Musculoskeletal: Denies arthralgias or myalgias Integumentary Denies rash Neurologic Neurologic: Denies paresthesias or weakness Psychiatric Psychiatric: Denies anxiety Hematologic/Lymphatic Hematologic/Lymphatic: Denies easy bleeding or easy bruising EXAM Physical Exam Narrative Exam Narrative: Vital signs are remarkable for 1 elevated blood pressure reading otherwise markable. Const Vital Signs: 06/28/23 10:05 06/28/23 11:11 06/28/23 11:19 Temperature 96.7 F L Temperature Source Temporal Pulse Rate 76 70 78 Respiratory Rate 16 Respiratory Effort Respiratory Pattern Blood Pressure 122/72 H 144/77 H 116/88 H Blood Pressure Mean 88 Pulse Ox 97 Oxygen Delivery Method Room Air 06/28/23 11:25 06/28/23 11:26 06/28/23 11:42 Temperature Temperature Source Pulse Rate 75 Respiratory Rate Respiratory Effort Normal Non-Labored Respiratory Pattern Normal Blood Pressure 117/74 Blood Pressure Mean Pulse Ox Oxygen Delivery Method Room Air 06/28/23 12:00 06/28/23 13:00 Temperature Temperature Source Pulse Rate Respiratory Rate 16 Respiratory Effort Respiratory Pattern Blood Pressure 125/87 H Blood Pressure Mean 99 Pulse Ox Oxygen Delivery Method Positive well nourished and well developed General Appearance ED: well developed and NAD; Negative for pallor HEENT Reports moist mucous membranes HEENT Narrative: Conjunctival is pink. Sclera is anicteric. normocephalic and atraumatic Eyes PERRL and EOMs intact bilaterally General Eye ED: Negative for pale conjunctiva or scleral icterus Neck no lymphadenopathy, supple and no JVD Chest Wall inspection of chest normal and palpation of chest normal Resp normal respiratory effort and clear to auscultation bilaterally Cardio regular rate, regular rhythm, S1 normal heart sound, S2 normal heart sound and no murmurs GI normal to inspection, nondistended, normoactive bowel sounds, soft to palpation, non-tender, non-distended and no masses; Negative for hepatosplenomegaly Back/Spine no CVA tenderness Extremity normal to inspection Extremity Narrative: Tenderness left knee, this is a chronic condition. There is no asymmetry, swelling, discoloration, leg vein distention, palpable cords or tenderness along the distribution of the deep venous system. General Extremety ED: Yes tenderness; Negative for edema or pulses abnormal General Extremity: Negative for edema or pulses abnormal Neuro oriented x3 and CN's II-XII intact bilaterally Sensorium / Orientation: awake and alert Psych mental status grossly normal Skin no rashes or lesions noted and no wounds General Skin Exam: Negative for jaundice or pallor MDM MDM MDM Narrative Medical decision making narrative: Diagnosis is cardiac versus noncardiac chest pain. Noncardiac chest pain etiology will be esophageal spasm, reflux which she has a remote history of, peptic ulcer disease, biliary disease (he denies intolerance to greasy or fried foods or family history of biliary disease), pneumothorax. Workup included EKG, chest x-ray blood work including 2-hour troponin. History & Record Review Additional record(s) reviewed:: Prior outpatient record and Prior labs Lab Data Attestation: I reviewed the patient's lab results. Lab results narrative: White count is slightly elevated 13.5 thousand with no bandemia. H&H is normal. Basic metabolic panel is unremarkable. First troponin is 5. Labs: Laboratory Results - last 24 hr 06/28/23 06/28/23 10:40 13:00 WBC 13.5 H RBC 4.30 Hgb 13.8 Hct 40.7 MCV 94.7 MCH 32.1 H MCHC 33.9 RDW Std Deviation 43.8 RDW Coeff of Tatiana 12.6 Plt Count 427 MPV 7.4 Immature Gran % (Auto) 0.700 Neut % (Auto) 76.8 H Lymph % (Auto) 13.1 L [place] % (Auto) 8.7 Eos % (Auto) 0.4 Baso % (Auto) 0.3 Absolute Neuts (auto) 10.4 H Absolute Lymphs (auto) 1.77 Nucleated RBC % 0 Sodium 129 L Potassium 3.9 Chloride 99 Carbon Dioxide 24.0 Anion Gap 6 BUN 14 Creatinine 0.78 Estim Creat Clear Calc 60.01 Est GFR (MDRD) Af Amer 95 Est GFR (MDRD) Non-Af 79 BUN/Creatinine Ratio 18.0 Glucose 114 H Calcium 8.5 Troponin I High Sens 5 5 Radiography Chest X-Ray - ED: 1 View and Read by ED Physician (X-ray was interpreted by me at 1133 as negative. Cardiac silhouette and size normal. Lung parenchyma normal. Perihilar region normal. Osseous structures are unremarkable.) Diagnostic Testing: Clinical Impression(s) from Imaging Studies Chest X-Ray 06/28/23 10:27 IMPRESSION: No acute abnormality is seen. Electronically Signed: Rocky Lunsford MD at 12:00 EST , EKG Initial EKG: Attestation: I personally reviewed and interpreted this EKG as follows: Interpretation: Sinus Rhythm (EKG is normal. Rate is 72. IA interval is 148 ms. Cures duration 76 ms. QT duration 382 ms. [place] is normal.) Management Discussion w/another healthcare provider: Sales Performance Analyst (Case was discussed with Dr. Serjio Thomas. Outpatient follow-up with Dr. Thomas and appropriate workup. He recommended PPI since this may be due to GI etiology. Patient was made aware of plan. She had no questions.) Treatment and Re-Evaluation :: Was reevaluated at 1146. Patient's discomfort improved by 30 to 40% after 2 nitros. Nurse is administering the third nitro. Comments:: With a normal EKG and 2 troponins less than 7 with a delta of 0 likelihood for cardiac disease is less than 1 and 1000. Plan is discharge with outpatient follow-up and workup. Discharge Plan Triage Chief Complaint: Chest Pain ED Provider: Rober Wall Dx/Rx/DC Orders Clinical Impression: Hypothyroidism, Chest pressure Instructions: ED Chest Pain, Uncertain Cause Prescriptions: New pantoprazole [Protonix] 40 mg tablet,delayed release (DR/EC) 40 mg PO DAILY Qty: 20 0RF No Action levothyroxine [Levoxyl] 75 MCG tablet 75 mcg PO DAILY Patient Comments: thyroid calcium carbonate 600 MG tablet 1,000 mg PO DAILY Patient Comments: supplement cholecalciferol (vitamin D3) [Vitamin D3] 1,000 UNIT tablet 50 mcg PO DAILY Patient Comments: supplement multivitamin with folic acid [Thera] 1 TABLET tablet 1 tab PO DAILY Patient Comments: supplement biotin 10,000 MCG capsule 5,000 mcg PO DAILY duloxetine 30 mg capsule,delayed release(DR/EC) 30 mg PO DAILY meloxicam 15 mg tablet 15 mg PO DAILY tramadol 50 mg tablet 50 mg PO QHS lisinopril 10 mg tablet 10 mg PO DAILY Primary Care Provider: Trisha Brink Referrals: Serjio Thomas MD [Med Staff - Active Staff] - 1 Week Trisha Brink DO [Primary Care Provider] - Disposition Disposition: Home, Self Care
--- OUTSIDE RECORDS SUMMARY | 2023-06-28 12:38 | XMS RPT_ITS | CCD ---
Author Name Unknown Address [address] [place] [address] Organization [facility] Care Team Providers Care Vice President Network Name Role Phone Winnie Eid Attending Unavailable Katelynn Manzanares Referring Unavailable Winnie Eid Consulting Unavailable Winnie Eid Unavailable Keith Bower Unavailable [facility] OFFICE, Jorge Silva Unavailable Adele Jacobson Unavailable [facility] Unavailable Petrona Sherman Unavailable Unavailable Unavailable Unavailable Slarb, Prabha Unavailable Unavailable Petrona Price Unavailable Unavailable Gravius, Tomeka Unavailable Unavailable MIGUELITO Hernandez Unavailable Unavailable Winnie Eid DO Unavailable Keith Bower MD Unavailable [phone] [facility] OFFICE, Jorge Silva Unavailable Adele Jacobson Unavailable [facility] Unavailable Gravius METEOROLOGIST LIAISON, Tomeka Unavailable Unavailable Slarb TELEHEALTH COORDINATOR, Prabha Unavailable Unavailable Unavailable Unavailable Jennifer Melara LPN Unavailable Unavailable RaginiGeri luque DOhleen Unavailable [phone] Medications Completed/Discontinued Medications Medication Drug Class(es) Dates Sig (Normalized) Sig (Original) acetaminophen 300 mg / codeine phosphate 30 mg oral tablet (20 sources) Opioid Agonist Start: 10-08-2007 End: 11-17-2008 take 1-2 tablets by mouth three times daily as needed TYLENOL/CODEINE #3, 300-30MG (Oral Tablet) 1-2 Tablet TID/PRN for 0 days Quantity: 20 {Tablet} Refills: 0 Ordered: 08-Oct-2007 David CASTILLOMIGUELITO Start : 08-Oct-2007 End : 17-Nov-2008 Inactive acetaminophen 325 mg / HYDROcodone bitartrate 5 mg oral tablet (8 sources) Opioid Agonist Start: 06-20-2021 End: 07-20-2021 take 1 tablet by mouth every six hours HYDROcodone-Aceta minophen 5-325 MG Oral Tablet 1 (one) Tablet every 6 hours as needed for pain for 30 days Quantity: 28 {Tablet} Refills: 0 Ordered: 20-Jun-2021 Winnie Eid DO Ragini LAZO Winnie Start : 20-Jun-2021 End : 20-Jul-2021 Inactive Comments: Medication taken as needed. Oarrs was reviewed, is ok. Problems Active Problems Problem Classification Problem Date Documented Date Episodic/Chronic Abdominal hernia (20 sources) Diaphragmatic hernia; Translations: [Diaphragmatic hernia without mention of obstruction or gangrene] Resolved: 02-10-2013 05-26-2015 Episodic Past or Other Problems Problem Classification Problem Date Documented Da te Episodic/Chronic E Codes: Fall (12 sources) Fall Mood disorders (20 sources) Mood disorders Other connective tissue disease (18 sources) Impingement syndrome of left shoulder region; Translations: [Shoulder impingement, left] 10-21-2018 Other ear and sense organ disorders (18 sources) Tinnitus of left ear; Translations: [Ringing in ears, left] 10-21-2018 Other upper respiratory disease (15 sources) Nasal discharge; Translations: [Post-nasal drainage] 03-03-2019 Episodic Otitis media and related conditions (18 sources) Dysfunction of bilateral eustachian tubes; Translations: [Eustachian tube dysfunction, bilateral] Resolved: 10-15-2017 10-15-2017 Residual codes; unclassified (17 sources) Tobacco user; Translations: [Tobacco use] Resolved: 05-17-2015 05-17-2015 Chronic Residual codes; unclassified (18 sources) H/O: hysterectomy; Translations: [S/P hysterectomy] 10-21-2018 Episodic Residual codes; unclassified (3 sources) Needs influenza immunization; Translations: [Need for prophylactic vaccination and inoculation against influenza (Renamed from Need for immunization against influenza)] 04-22-2020 Episodic Residual codes; unclassified (10 sources) Tobacco use and exposure - finding; Translations: [Tobacco use] Resolved: 05-17-2015 05-17-2015 Episodic Screening and history of mental health and substance abuse codes (1 source) Tobacco use and exposure - finding; Translations: [Tobacco use] Resolved: 05-17-2015 05-17-2015 Chronic Unclassified (20 sources) Ringing in ears, left Unclassified (20 sources) Deliveries (Parity); Translations: [Deliveries (Parity)] 10-21-2018 Results Test Name Value Interpretation Reference Range Facil ity Vital Signs Date Time Vital Sign Value Performing Clinician Facility 11-21-2021 11:39-0400 Body height 160.02 cm Tomeka Toledo [facility] Work Phone: 11-21-2021 11:39-0400 Body mass index (BMI) [Ratio] 24.47 kg/m2 Tomeka Toledo [facility] Work Phone: 11-21-2021 11:39-0400 Body surface area Derived from formula 1.65 m2 Tomeka Toledo [facility] Work Phone: 11-21-2021 11:39-0400 Body temperature 97.3 [degF] Tomeka Toledo [facility]; [facility] Work Phone: Encounters Encounter Date Encounter Type Care Provider Facility Start: 11-21-2021 End: 11-21-2021 Office outpatient visit 25 minutes Winnie Harrison DO Work Phone: [facility] Start: 11-21-2021 Review Winnie Moreira n DO Work Phone: [facility] Start: 08-17-2021 End: 08-17-2021 Office outpatient visit 15 minutes Winnie Eid DO Work Phone: [facility] Start: 06-20-2021 End: 06-20-2021 Prescription Refill Winnie Eid DO Work Phone: [facility] Start: 06-20-2021 End: 06-20-2021 Office outpatient visit 15 minutes Winnie Ragini DO Work Phone: [facility] Start: 06-09-2021 End: 06-12-2021 Office outpatient visit 25 minutes Winnie Ragini DO Work Phone: [facility] Start: 06-09-2021 End: 06-09-2021 Phone Encounter Winnie Ragini DO Work Phone: [facility] Start: 06-06-2021 End: 06-06-2021 Office outpatient visit 15 minutes Winnie Ragini DO Work Phone: [facility] Start: 05-25-2021 End: 05-25-2021 Office outpatient visit 10 minutes Winnie Ragini DO Work Phone: [facility] Start: 05-19-2021 End: 05-20-2021 Office outpatient visit 15 minutes Winnie Ragini DO Work Phone: [facility] Start: 04-22-2020 End: 04-22-2020 Office outpatient visit 15 minutes Winnie Ragini [facility] Start: 03-15-2020 Review Winnie Eid Compre[facility] Start: 03-03-2019 End: 03-03-2019 Office outpatient visit 15 minutes Winnie Eid [facility] Start: 10-21-2018 End: 10-21-2018 Office outpatient visit 10 minutes Winnie Eid [facility] Start: 09-18-2018 Patient encounter procedure Winnie iEd [facility] Start: 09-18-2018 End: 09-18-2018 Office outpatient visit 15 minutes Winnie Eid [facility] Start: 11-05-2017 End: 11-05-2017 Office outpatient visit 15 minutes Winnie Eid [facility] Start: 10-22-2017 End: 10-22-2017 Office outpatient visit 15 minutes Winnie Eid [facility] Start: 10-15-2017 End: 10-15-2017 Office outpatient visit 15 minutes Winnie Eid [facility] Start: 05-28-2017 End: 05-28-2017 Office outpatient visit 10 minutes Winnie Eid [facility] Start: 04-30-2017 End: 04-30-2017 Office outpatient visit 15 minutes Winnie Eid [facility] Start: 10-31-2016 End: 10-31-2016 Office outpatient visit 10 minutes Winnie Eid [facility] Start: 08-14-2016 End: 08-14-2016 Office outpatient visit 15 minutes Winnie Hilton [facility] Start: 05-08-2016 End: 05-08-2016 Office outpatient visit 10 minutes Winnie Eid [facility] Start: 03-30-2016 End: 03-30-2016 Office outpatient visit 15 minutes Winnie Eid [facility] Start: 02-17-2016 End: 02-17-2016 Office outpatient visit 15 minutes Winnie Eid [facility] Start: 07-13-2015 End: 07-13-2015 Office outpatient visit 25 minutes Winnie Eid [facility] Start: 06-21-2015 End: 06-21-2015 Office outpatient visit 15 minutes Winnie Eid [facility] Start: 05-31-2015 End: 05-31-2015 Phone Encounter Winnie Hilton [facility] Start: 05-31-2015 End: 05-31-2015 Office outpatient visit 15 minutes Winnie Eid [facility] Start: 05-17-2015 End: 05-17-2015 Patient encounter status Winnie Harrison DO Work Phone: [facility] Start: 05-17-2015 End: 05-17-2015 Periodic preventive med est patient 18-39 yrs Winnie Hilton [facility] Start: 05-17-2015 End: 05-17-2015 Preprocedural examination done Winnie Eid DO Work Phone: [facility] Start: 09-14-2014 End: 09-14-2014 Office outpatient visit 15 minutes Winnie Hilton [facility] Start: 03-30-2014 End: 03-30-2014 Office outpatient visit 25 minutes Winnie Eid [facility] Start: 02-26-2014 End: 02-26-2014 Lab Order Winnie Hilton [facility] Start: 11-25-2013 End: 11-27-2013 Patient encounter procedure Winnie Hilton [facility] Start: 02-10-2013 End: 02-10-2013 Patient encounter procedure Winnie Eid [facility] Start: 01-20-2013 End: 01-20-2013 Patient encounter procedure Winnie Eid [facility] Start: 02-26-2012 End: 02-26-2012 Phone Encounter Winnie Ragini [facility] Start: 02-16-2012 End: 02-16-2012 Office outpatient visit 10 minutes Winnie Eid [facility] Start: 02-13-2012 End: 02-13-2012 Annotation/Addendum Winnie Raginiene [facility] Start: 02-13-2012 End: 02-13-2012 Office outpatient visit 15 minutes Winnie Eid [facility] Start: 08-10-2011 End: 08-10-2011 Phone Encounter Winnie Harrison [facility] Start: 04-24-2011 End: 04-24-2011 Patient encounter procedure Winnie Eid [facility] Start: 03-10-2011 End: 03-10-2011 Patient encounter procedure Winnie Ragini [facility] Start: 03-09-2011 End: 03-09-2011 Phone Encounter Winnie Ragini [facility] Start: 02-22-2011 End: 02-22-2011 Phone Encounter Winnieraj Harrison [facility] Start: 10-31-2010 End: 10-31-2010 Office outpatient visit 25 minutes Winnie Eid [facility] Start: 09-27-2009 End: 09-27-2009 Office outpatient visit 15 minutes Winnie Eid [facility] Start: 08-31-2009 End: 08-31-2009 Office outpatient visit 10 minutes Winnie Eid [facility] Start: 11-17-2008 End: 11-17-2008 Patient encounter procedure Winnie Eid [facility] Start: 10-08-2007 End: 10-08-2007 Patient encounter procedure Winnie Eid [facility] Start: 08-26-2007 End: 08-26-2007 Patient encounter procedure Winnie Eid [facility] Start: 11-01-2006 End: 11-01-2006 Patient encounter procedure Winnie Eid [facility] Start: 10-18-2006 End: 10-18-2006 Patient encounter procedure Winnie Eid [facility] Start: 08-20-2006 End: 08-20-2006 Patient encounter procedure Winnie Eid [facility] Start: 08-17-2006 End: 08-17-2006 Historical Summary Winnie Eid [facility] Patient encounter status Tomeka Santoyo MA [facility]; [facility] Work Phone: Procedures Date Procedure Procedure Detail Performing Clinician Start: 09-27-2021 End: 09-27-2021 SCRN MAMM (CAD)W/AMY BILAT Comments: See Note; NOTES: [facility] Imaging Services [address] [place] [address] SCRN MAMM (CAD)W/AMY BILAT MR#: [id number] Acct: [id number] Name: KARLA FOURNIER Rep #: [id number] : 1955 F 66 From: [place] MD PCP: Dr. Winnie Eid, DO Status: [facility] Study: SCRN MAMM (CAD)W/AMY BILAT Date of Exam: 09/16 08/09 Exam# [id number] Ordering Dr: Devora Troncoso MD MAMMOGRAPHY - BILATERAL SCREENING REASON FOR EXAM: Female, 66 years old. Routine annual screening examination. PERTINENT HISTORY: Non-contributory. Bilateral breast implants. TECHNIQUE: Digital bilateral breast amy (3D mammographic acquisition) in the CC and MLO projections. 2-D mediolateral oblique (MLO) and craniocaudad (CC) views of both breasts were obtained. CAD: Full Field Digital Mammography with Computer Added Detection was performed. COMPARISON: Comparison is made with prior study dated 01/10/2021 and 07/07/2019. FINDINGS: Breast Composition: There are scattered areas of fibroglandular density. There are no dominant masses or suspicious calcifications. Stable appearance of the bilateral breast implants. Stable appearance of the bilateral axillary lymph nodes. No other significant abnormalities are identified. There has been no significant change since the prior study. BI/SCRN MAMM (CAD)W/AMY BILAT IMPRESSION: Stable bilateral screening mammogram. Yearly follow-up mammogram recommended. (A) ASSESSMENT CATEGORY: BIRADS Category 2: Benign. A letter regarding these results will be sent to the patient by the facility within 30 days. Approximately 10% of breast cancers are not detected by mammography. A normal mammogram should not delay biopsy of a clinically suspicious abnormality. [id number] Electronically Signed: Rocky Lunsford MD at 13:46 EDT , CC: Dr. Winnie Eid DO; Dr. Devora Sheehan MD Sketch Artist: Signed Winnie Eid DO Work Phone: Start: 08-09-2021 End: 08-09-2021 Bone Scan Whole Body Comments: See Note; NOTES: [facility] Imaging Services [address] [place] [id number] Bone Scan Whole Body MR#: [id number] Acct: [id number] Name: KARLA FOURNIER Rep #: [id number] : 1955 F 65 From: Fabiano Verduzco PCP: Dr. Winnie Eid DO Status: REG CLI Study: Bone Scan Whole Body Date of Exam: 08/09/21 Exam# [id number] Ordering Dr: Tee Jalloh DO CLINICAL: 65-year-old female with history of back discomfort. WHOLE BODY 99m Tc MDP RADIONUCLIDE BONE SCINTIGRAPHY COMPARISON: Plain film radiograph report lumbar spine 06/06/2021 FINDINGS: Following the intravenous administration of 19.0 mCi of 99m Tc MDP, whole body bone images reveal: 1. Increased radiopharmaceutical concentration is defined in the 11th thoracic vertebra diffusely, bilateral sacral ala and midline posterior sacrum, the coccyx, the right anterolateral sixth-eighth ribs at the costochondral junction, left proximal humeral metaphysis. 2. Facilitated uptake is observed in the acromioclavicular compartment of the right shoulder, sternoclavicular and glenohumeral compartments of both shoulders, the right knee, right ankle. 3. The remaining skeletal structures are scintigraphically unremarkable with normal-appearing renal images and urinary bladder activity identified. Facilitated uptake is noted in the bilateral maxilla and interorbital aspect of the skull most consistent with periostitis. NM/Bone Scan Whole Body IMPRESSION: 1. The increase in radiopharmaceutical concentration observed in the thoracic vertebra, left proximal humerus, right and left sacral ala, posterior midline sacrum, the coccyx, the right anterolateral sixth-eighth ribs likely represent trauma-fracture. Plain film radiography correlation may be of benefit for further evaluation. 2. 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 Electronically Signed: Fabiano Byrnes DO at 22:23 EST , CC: Dr. Tee Jalloh DO; Dr. Winnie Eid DO Sketch Artist: Signed Winnie Eid DO Work Phone: Start: 06-20-2021 End: 06-20-2021 HIP, UNI W/ Pelvis 2-3 Views Comments: See Note; NOTES: [facility] Imaging Services [address] [place] [address] HIP, UNI W/ Pelvis 2-3 Views MR#: [id number] Acct: [id number] Name: KARLA FOURNIER Rep #: [id number] : 1955 F 65 From: [place] MD PCP: Dr. Winnie Eid DO Status: REG CLI Study: HIP, UNI W/ Pelvis 2-3 Views Date of Exam: 09/06 Exam# [id number] Ordering Dr: Winnie Eid DO STUDY: X-RAY - PELVIS AND LEFT HIP REASON FOR EXAM: Female, 65 years old. PAIN TECHNIQUE: 3 views of the pelvis and hip. COMPARISON: None. FINDINGS: There is a non-specific bowel gas pattern. Normal visualized soft tissue structures. Normal bilateral iliac wings, sacroiliac joints and visualized sacrum. Normal bilateral superior and inferior pubic rami. There is narrowing with sclerosis of the pubic symphysis. Normal bilateral ischial tuberosities. Normal visualized femoral head. There is osteoarthritic spur formation of the acetabular rim. There is moderate articular joint space narrowing of the hip. RAD/HIP, UNI W/ Pelvis 2-3 Views IMPRESSION: Degenerative changes. No fracture is seen. Electronically Signed: Rocky Lunsford MD at 11:47 EST , Service support , CC: Dr. Winnie Eid DO Sketch Artist: Signed Winnie Eid DO Work Phone: Start: 06-09-2021 End: 06-09-2021 Emergency Department Summary Comments: See Note; NOTES: [facility] Medical Records Department [address] [place] [address] Emergency Department Summary 06/09/21 MR#: [id number] Acct: [id number] Name: KARLA FOURNIER Rep #: [id number] : 1955 65 From: Allan Reid MD PCP: Dr. Winnie Eid, Status:[facility] ER Location: ED HPI History of Present Illness Chief Complaint: Abn Labs Informant: patient Narrative Narrative: Patient drinks almost 200 ounces of water per day. She was seen by her doctor today in follow-up after a fall that she had that sounded like a simple accident, she states she reached down to adjust her sock and fell over after losing her balance without any prodromal symptoms. She was seen here in the ER for that did not have any labs but she had some as an outpatient, and her sodium was 123. As result of that her doctor sent her here for admission and further evaluation. Patient denies any weakness, confusion, or other recent illness. [facility] Medical History Hypertension Hypothyroidism Incontinence in female Incontinence in female Home Medications calcium carbonate 1,000 mg PO DAILY 06/24/15 [History Last Taken 03/05/19] cholecalciferol (vitamin D3) [Vitamin D3] 1,000 unit PO DAILY 06/24/15 [History Last Taken 03/05/19] levothyroxine [Levoxyl] 75 mcg PO DAILY 06/24/15 [History Last Taken 03/06/19] multivitamin with folic acid [Thera] 1 tab PO DAILY 06/24/15 [History Last Taken 03/05/19] Ibandronate Sodium [Boniva] 150 mg PO Q30D 10/03/18 [History Last Taken 03/05/19] biotin 10,000 mcg PO DAILY 10/03/18 [History Last Taken 03/05/19] citalopram 20 mg PO DAILY 10/03/18 [History Last Taken 03/05/19] zinc 50 mg PO DAILY 03/06/19 [History Last Taken 03/05/19] lisinopril 10 mg PO BID #60 tab 05/11/21 [Rx Last Taken Unknown] Allergy/AdvReac Type Severity Reaction Status Date / Time No Known Allergies Allergy Verified 06/09/21 12:27 Surgical History H/O: hysterectomy History of bladder surgery Social History Smoking Status: Former smoker ROS ROS ED Constitutional Constitutional ED: Denies chills or fever(s) Eyes Eyes: Denies change in vision or diplopia ENT ENT ED: Denies rhinorrhea or sore throat Cardiovascular Cardiovascular: Denies chest pain or palpitations Respiratory/Chest Respiratory/Chest: Denies cough or dyspnea Gastrointestinal Gastrointestinal: Denies abdominal pain, diarrhea, nausea or vomiting Genitourinary Genitourinary ED: Denies dysuria or hematuria Musculoskeletal Musculoskeletal: Denies back pain or neck pain Integumentary Denies abscess or rash Neurologic Neurologic: Denies headache(s), paresthesias or weakness Psychiatric Psychiatric: Denies anxiety or suicidal thoughts EXAM Physical Exam Const Vital Signs: 06/09/21 11:53 06/09/21 12:30 06/09/21 14:03 Temperature 97.5 F L Temperature Source Temporal Pulse Rate 80 68 Respiratory Rate 18 15 Respiratory Effort Normal Respiratory Pattern Normal Blood Pressure 156/86 H Blood Pressure Mean 109 Pulse Ox 97 98 Oxygen Delivery Method Room Air Room Air Positive well nourished and well developed General Appearance ED: well developed and NAD HEENT Reports moist mucous membranes normocephalic and atraumatic Eyes PERRL and EOMs intact bilaterally Neck full ROM and supple Resp normal respiratory effort and clear to auscultation bilaterally Cardio regular rate, regular rhythm and no murmurs GI non-tender and non-distended Auscultation: normoactive bowel sounds Palpation: soft Back/Spine no CVA tenderness General Back: other FROM Extremity normal to inspection General Extremety ED: Negative for edema, pulses abnormal or tenderness General Extremity: Negative for edema or pulses abnormal Neuro oriented x3, CN's II-XII intact bilaterally and no sensory deficits noted Sensorium / Orientation: awake and alert Motor Exam: strength 5/5 throughout Skin no rashes or lesions noted and no wounds MDM MDM MDM Narrative Medical decision making narrative: Sodium is 125. She was given slow isotonic saline at 125/h while in the emergency department. Discussed with nephrology Dr. Aldrich. 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 I gave her most of the liter here, patient was discharged home and I passed on the recommendation for fluid restriction 50-60 ounces per day, and the call to make an appointment with nephrology next week for reevaluation and repeat labs. We discussed reasons to return patient is comfortable with that plan. Did also speak with the patient's PCP prior to discharge, she requested that we add serum osmolality and urine osmolality and urine sodium which we will do prior to her leaving. Lab Data Attestation: I reviewed the patient's lab results. Labs: Laboratory Results - last 24 hr 06/09/21 06/09/21 12:20 12:20 WBC 7.0 RBC 3.98 L Hgb 12.9 Hct 37.2 MCV 93.5 MCH 32.4 H MCHC 34.7 RDW Std Deviation 41.8 RDW Coeff of Tatiana 12.0 Plt Count 288 MPV 8.0 Immature Gran % (Auto) 0.300 Neut % (Auto) 74.8 H Lymph % (Auto) 14.4 L [place] % (Auto) 8.5 Eos % (Auto) 1.3 Baso % (Auto) 0.7 Absolute Neuts (auto) 5.3 Absolute Lymphs (auto) 1.01 Nucleated RBC % 0 Sodium 125 L Potassium 4.3 Chloride 91 L Carbon Dioxide 25.0 Anion Gap 9 BUN 10 Creatinine 0.71 Estim Creat Clear Calc 66.22 Est GFR (MDRD) Af Amer 107 Est GFR (MDRD) Non-Af 88 BUN/Creatinine Ratio 14.1 Glucose 97 Calcium 9.6 Discharge Plan Triage Chief Complaint: Abn Labs ED Provider: Allan Reid Dx/Rx/DC Orders Clinical Impression: Hyponatremia, Psychogenic polydipsia Instructions: ED Hyponatremia Prescriptions: No Action levothyroxine [Levoxyl] 75 MCG tablet 75 mcg PO DAILY RF: 0 calcium carbonate 600 MG tablet 1,000 mg PO DAILY RF: 0 cholecalciferol (vitamin D3) [Vitamin D3] 1,000 UNIT tablet 1,000 unit PO DAILY RF: 0 multivitamin with folic acid [Thera] 1 TABLET tablet 1 tab PO DAILY RF: 0 citalopram 20 MG tablet 20 mg PO DAILY RF: 0 biotin 10,000 MCG capsule 10,000 mcg PO DAILY RF: 0 Ibandronate Sodium [Boniva] 150 MG tablet 150 mg PO Q30D RF: 0 zinc 50 MG tablet 50 mg PO DAILY RF: 0 lisinopril 10 mg tablet 10 mg PO BID Qty: 60 RF: 0 Primary Care Provider: Winnie Eid Referrals: Desiree Kamara MD [STAFF PHYSICIAN] - (call for appt next week) Winnie Eid DO [Primary Care Provider] - Activity Restrictions/Additional Instructions: Limit your fluid intake, including water, to 50-60 ounces per day Disposition Disposition: Home, Self Care What to do if you have Problems For any increased pain, shortness of breath, bleeding, nausea or vomiting, chest pain, or any unexpected problems, contact your Primary Care Provider. Call [facility] ([phone]) or report to the closest Emergency Room. Call 911 if necessary. 06/09/21 3765 <Electronically signed by Allan Reid MD> Cosigner Signature (if applicable): CC: Dr. Winnie Eid DO Signed Winnie Eid DO Work Phone: Start: 06-06-2021 End: 06-08-2021 Lumbar Spine 2 or 3 Views Comments: See Note; NOTES: [facility] Imaging Services [address] [place] [address] Lumbar Spine 2 or 3 Views MR#: [id number] Acct: [id number] Name: KARLA FOURNIER Rep #: [id number] : 1955 F 65 From: Aravind Toth DO PCP: Dr. Winnie Eid DO Status: REG CLI Study: Lumbar Spine 2 or 3 Views Date of Exam: Exam# [id number] Ordering Dr: Tita Vargas NP [employer] STUDY: X-RAY - LUMBAR SPINE REASON FOR EXAM: Female, 65 years old. ACUTE BACK PAIN TECHNIQUE: 2 view(s) of the lumbar spine were obtained. COMPARISON: None FINDINGS: Normal lumbar lordosis. There is no substantial scoliosis. There is a normal alignment of the vertebrae. Chronic compression fracture of the superior endplate of T10. There is multilevel endplate spondylosis of the lumbar vertebrae. There is multi-level degenerative disc disease with multi-level disc space narrowing. There is no demonstrated fracture. The soft tissue structures are unremarkable. RAD/Lumbar Spine 2 or 3 Views IMPRESSION: Degenerative changes of the spine, as detailed above. Electronically Signed: Aravind Toth DO at 3:46 EST Tel , Service support , CC: JONATHAN Vargas; Dr. Winnie Eid DO Sketch Artist: Signed Tita Vargas CNP Work Phone: Start: 05-11-2021 End: 05-11-2021 Emergency Department Summary Comments: See Note; NOTES: [facility] Medical Records Department [address] [place] [address] Emergency Department Summary 05/11/21 MR#: [id number] Acct: [id number] Name: KARLA FOURNIER Rep #: [id number] : 1955 65 From: Wan Valenzuela MD PCP: Dr. Winnie Eid, DO Status:REG ER Location: ED HPI History of Present Illness Chief Complaint: Head Injury Narrative Narrative: Patient presents with pressure at the base of her skull/occiput since Sunday, almost 3 days ago. She denies any fevers or chills. No paresthesias, no head injury. She describes a pressure-like sensation has been constant. She has been taking ibuprofen without relief of her symptoms. No chest pain or shortness of breath. No other symptoms. She states she called her primary care physician, but was unable to be seen. [facility] advised her that there was nothing that they could do for her. [facility] Medical History Hypothyroidism Incontinence in female Incontinence in female Home Medications calcium carbonate 1,000 mg PO DAILY 06/24/15 [History Last Taken 03/05/19] cholecalciferol (vitamin D3) [Vitamin D3] 1,000 unit PO DAILY 06/24/15 [History Last Taken 03/05/19] levothyroxine [Levoxyl] 75 mcg PO DAILY 06/24/15 [History Last Taken 03/06/19] multivitamin with folic acid [Thera] 1 tab PO DAILY 06/24/15 [History Last Taken 03/05/19] Ibandronate Sodium [Boniva] 150 mg PO Q30D 10/03/18 [History Last Taken 03/05/19] biotin 10,000 mcg PO DAILY 10/03/18 [History Last Taken 03/05/19] citalopram 20 mg PO DAILY 10/03/18 [History Last Taken 03/05/19] zinc 50 mg PO DAILY 03/06/19 [History Last Taken 03/05/19] lisinopril 10 mg PO BID #60 tab 05/11/21 [Rx Last Taken Unknown] Allergy/AdvReac Type Severity Reaction Status Date / Time No Known Allergies Allergy Verified 05/11/21 13:16 Surgical History H/O: hysterectomy History of bladder surgery Social History Smoking Status: Former smoker ROS ROS ED ROS Narrative Constitutional: No fever, no chills. HEENT: No sore throat. No neck pain. No loss of vision. No rhinorrhea. Cardiovascular: No chest pain. No palpitations. No pedal edema. Respiratory: No cough, no shortness of breath. Abdominal: No abdominal pain. No nausea. No vomiting. Genitourinary: No dysuria. No hematuria. Musculoskeletal: No myalgias. No arthralgias. Neurologic: No headaches, but feels pressure at the base of her skull/in the occiput. No dizziness. No lightheadedness. Skin: No rash. No change in color. Psychiatric: No depression. No anxiety. EXAM Physical Exam Narrative Exam Narrative: Afebrile. Vital signs noted. HEENT: Normocephalic. Atraumatic. PERRL, EOMI. Neck soft and supple. No point tenderness or step off. Cardiovascular: Regular rate and rhythm. No murmurs, rubs, or gallops appreciated. Respiratory: No tachypnea. Lungs clear to auscultation bilaterally. Gastrointestinal: Abdomen soft, nontender, with normoactive bowel sounds. No rebound or guarding. Neurological: Awake. Alert. Oriented x3. Nonfocal, nonlateralizing. DTRs equal and symmetric. Skin: No rash. Normal color. No pallor. Musculoskeletal: No pedal edema. Full range of motion extremities. Const Vital Signs: 05/11/21 13:14 05/11/21 13:48 Temperature 97.3 F L Temperature Source Temporal Pulse Rate 72 67 Respiratory Rate 16 18 Blood Pressure 176/75 H 174/90 H Blood Pressure Mean 108 118 Pulse Ox 100 96 Oxygen Delivery Method Room Air Room Air MDM MDM MDM Narrative Medical decision making narrative: I will obtain CT of the brain and a CT of the C-spine. Of note, her blood pressure is elevated at 176/25. She was administered oral hydralazine [address] CTs of the brain show no acute process, no hemorrhage. CT of the C-spine shows multilevel degenerative changes. While this may be part of a cervical radiculopathy, I do feel that she may have slight pressure secondary to elevated blood pressure. I discussed patient with her primary care provider, Dr. Eid, who would like the patient started on lisinopril 10 mg twice a day. She is given a prescription for the next month. She is to follow-up with her primary care physician next week. I feel she can be discharged safely home with follow-up. Return instructions to the emergency department were reviewed. Disposition is discharged home in stable condition. Radiography Diagnostic Testing: Clinical Impression(s) from Imaging Studies Brain CT 05/11/21 13:26 IMPRESSION: No acute intracranial hemorrhage Electronically Signed: Ochoa Cheng MD at 13:59 EST , Service support , Cervical Spine CT 05/11/21 13:26 IMPRESSION: Multilevel degenerative changes, as described above. No acute findings Likely chronic subluxations at C4-5 and C5-6 as described above Electronically Signed: Ochoa Cheng MD at 14:02 EST , Service support , Discharge Plan Triage Chief Complaint: Head Injury ED Provider: Wan Valenzuela Dx/Rx/DC Orders Clinical Impression: Head pain, Hypertension Instructions: Blood Pressure Check Steps, ED Hypertension New Begin Treatment Prescriptions: New lisinopril 10 mg tablet 10 mg PO BID Qty: 60 RF: 0 No Action levothyroxine [Levoxyl] 75 MCG tablet 75 mcg PO DAILY RF: 0 calcium carbonate 600 MG tablet 1,000 mg PO DAILY RF: 0 cholecalciferol (vitamin D3) [Vitamin D3] 1,000 UNIT tablet 1,000 unit PO DAILY RF: 0 multivitamin with folic acid [Thera] 1 TABLET tablet 1 tab PO DAILY RF: 0 citalopram 20 MG tablet 20 mg PO DAILY RF: 0 biotin 10,000 MCG capsule 10,000 mcg PO DAILY RF: 0 Ibandronate Sodium [Boniva] 150 MG tablet 150 mg PO Q30D RF: 0 zinc 50 MG tablet 50 mg PO DAILY RF: 0 Primary Care Provider: Winnie Eid Referrals: Winnie Eid DO [Primary Care Provider] - 05/17/21 Disposition Disposition: Home, Self Care What to do if you have Problems For any increased pain, shortness of breath, bleeding, nausea or vomiting, chest pain, or any unexpected problems, contact your Primary Care Provider. Call [facility] ([phone]) or report to the closest Emergency Room. Call 911 if necessary. 05/11/21 1509 <Electronically signed by Wan Valenzuela MD> Cosigner Signature (if applicable): CC: Dr. Winnie Eid DO Signed Winnie Eid DO Work Phone: Start: 05-11-2021 End: 06-08-2021 Brain/Head without Contrast Comments: See Note; NOTES: [facility] Imaging Services [address] [place] [address] Brain/Head without Contrast MR#: [id number] Acct: [id number] Name: KARLA FOURNIER Rep #: [id number] : 1955 F 65 From: Jarek Cheng MD PCP: Dr. Winnie Eid DO Status: REG ER Study: Brain/Head without Contrast Date of Exam: 04/19 10/06 Exam# [id number] Ordering Dr: Wan Valenzuela MD STUDY: CT BRAIN WITHOUT CONTRAST REASON FOR EXAM: Female, 65 years old. Head pressure RADIATION DOSAGE (If Supplied By Facility): CTDIvol = ( 44.99 ) mGy, DLP = ( 779.24 ) mGycm TECHNIQUE: Transaxial CT imaging of the brain was performed without administration of intravenous contrast material. Individualized dose optimization techniques were used for this CT. COMPARISON: No relevant priors. FINDINGS: Normal soft tissue structures. Normal calvarium. Normal size ventricles and extra-axial spaces for the patient''s age. Normal white matter tracts of the cerebral hemispheres. Normal basal ganglia and thalami. Normal brainstem. Normal cerebellum. There is no intracranial hemorrhage. There are no findings of an acute ischemic infarction. Mucous retention cyst/polyp in the left maxillary sinus CT/Brain/Head without Contrast IMPRESSION: No acute intracranial hemorrhage Electronically Signed: Ochoa Cheng MD at 13:59 EST , Service support , CC: Dr. Wan Valenzuela MD; Dr. Winnie Eid DO Sketch Artist: Signed Winnie Eid DO Work Phone: Start: 05-11-2021 End: 06-08-2021 Spine Cervical without Contras Comments: See Note; NOTES: [facility] Imaging Services [address] [place] [address] Spine Cervical without Contras MR#: [id number] Acct: [id number] Name: KARLA FOURNIER Rep #: [id number] : 1955 F 65 From: Jarek Cheng MD PCP: Dr. Winnie Eid DO Status: REG ER Study: Spine Cervical without Contras Date of Exam: 07/11/20 Exam# [id number] Ordering Dr: Wan Valenzuela MD STUDY: CT CERVICAL SPINE WITHOUT CONTRAST REASON FOR EXAM: Female, 65 years old. Neck pain and headache RADIATION DOSAGE (If Supplied By Facility): CTDIvol = ( 11.79 ) mGy, DLP = ( 219.99 ) mGycm TECHNIQUE: High resolution transaxial imaging was performed without contrast material. Sagittal and coronal images were reconstructed. Individualized dose optimization techniques were used for this CT. COMPARISON: None FINDINGS: Normal craniovertebral junction. There are degenerative changes of the anterior atlantoaxial articulation. Normal odontoid process. There is straightening of the normal cervical lordosis. There are sclerotic endplate changes throughout the cervical spine. There is anatomic alignment of the cervical spine from C1 to C4. There is a 4 to 5 mm posterior subluxation of C5 on C4, then an anterior subluxation of 2 to 3 mm of C6 on C5. There is anatomic alignment from C6 to T1. These subluxations are likely chronic as there is no soft tissue swelling or other evidence to suspect acute injury. There is no central canal stenosis, there is bilateral foraminal narrowing from C4-5 through C7-T1 due to mild degenerative changes. No suspicious adenopathy, airway narrowing or deviation. CT/Spine Cervical without Contras IMPRESSION: Multilevel degenerative changes, as described above. No acute findings Likely chronic subluxations at C4-5 and C5-6 as described above Electronically Signed: Ochoa Cheng MD at 14:02 EST , Service support , CC: Dr. aWn Valenzuela MD; Dr. Winnie Eid DO Sketch Artist: Signed Winnie Eid DO Work Phone: Start: 07-13-2020 End: 07-13-2020 Dexa Bone Density Study Comments: See Note; NOTES: [facility] Imaging Services [address] [place] [address] Dexa Bone Density Study MR#: [id number] Acct: [id number] Name: KARLA FOURNIER Rep #: [id number] : 1955 F 64 From: Rocky plaza MD PCP: Dr. 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 COMPARISON: Comparison is made with prior study dated 10/02/2017. FINDINGS: Lumbar Spine (L1-L4): g/cm2 (1.016) / T-score (-1.4) / Z-score (0.1) Findings are suggestive of osteopenia with a low fracture risk. Approximately 50% loss of height of a mid dorsal vertebrae. Left Femur Total: g/cm2 (0.771) / T-score (-1.9) / Z-score (-0.8) Left Femoral Neck: g/cm2 (0.815) / T-score (-1.6) / Z-score (-0.2) Right Femur Total: g/cm2 (0.735) / T-score (-2.2) / Z-score (-1.0) Right Femoral Neck: g/cm2 (0.698) / T-score (-2.4) / Z-score (-1.0) The T-Scores on the most recent prior examination were: Lumbar Spine (L1-L4): There has been improvement of bone density since the previous examination. Left Femur Total: which represents an improvement of 0.7%. Right Femur Total: which represents a worsening of 4.4%. BD/Dexa Bone Density Study IMPRESSION: The patient is considered osteopenic as outlined below according to World Myles Organization (WHO) criteria with a high fracture risk. There has been improvement of bone density since the previous examination. Reference Information: The T-score is the number [...] 1. NIH Osteoporosis and Related Bone Diseases www osteo.org 2. International Society for Clinical Densitometry www iscd.org 3. National Osteoporosis Foundation www nof.org Electronically Signed: Rocky Lunsford MD at 13:40 EST , Service support , CC: Dr. Winnie Eid DO Sketch Artist: Signed Winnie Eid DO Work Phone: Start: 07-13-2020 End: 07-13-2020 SCRN MAMM (CAD)W/AMY BILAT Comments: See Note; NOTES: [facility] Imaging Services [address] [place] [address] SCRN MAMM (CAD)W/AMY BILAT MR#: [id number] Acct: [id number] Name: KARLA FOURNIER Rep #: [id number] : 1955 F 64 From: Rocky plaza MD PCP: Dr. Winnie Eid DO Status: REG CLI Study: SCRN MAMM (CAD)W/AMY BILAT Date of Exam: 06/19 12/06 Exam# [id number] Ordering Dr: Winnie Eid DO MAMMOGRAPHY - BILATERAL SCREENING REASON FOR EXAM: Female, 64 years old. Routine annual screening examination. PERTINENT HISTORY: Non-contributory. TECHNIQUE: Digital bilateral breast amy (3D mammographic acquisition) in the CC and MLO projections. 2-D mediolateral oblique (MLO) and craniocaudad (CC) views of both breasts were obtained. CAD: Full Field Digital Mammography with Computer Added Detection was performed. COMPARISON: Comparison is made with prior study dated 07/07/2019 and 07/05/2018. FINDINGS: Breast Composition: There are scattered areas of fibroglandular density. There are no dominant masses or suspicious calcifications. Stable bilateral breast implants. These are unchanged. Stable small bilateral axillary lymph nodes. No other significant abnormalities are identified. There has been no significant change since the prior study. BI/SCRN MAMM (CAD)W/AMY BILAT IMPRESSION: Stable bilateral screening mammogram. Yearly follow-up mammogram recommended. (A) ASSESSMENT CATEGORY: BIRADS Category 2: Benign. A letter regarding these results will be sent to the patient by the facility within 30 days. Approximately 10% of breast cancers are not detected by mammography. A normal mammogram should not delay biopsy of a clinically suspicious abnormality. [id number] Electronically Signed: Rocky Lunsford MD at 11:28 EST , Service support , CC: Dr. Winnie Eid DO Sketch Artist: Signed Winnie Eid DO Work Phone: Start: 05-14-2020 End: 05-18-2020 12 Lead EKG Comments: See Note; NOTES: [facility] Cardiovascular Services [address] [place] [address] 12 Lead EKG 05/14/20 0942 MR#: [id number] Acct: [id number] Name: KARLA FOURNIER Rep #: [id number] : 1955 64 From: Serjio Thomas MD Attending Dr: Dr. Jamaal Moise DO Status: RE G CLI Ordering Dr: Jamaal Moise DO Date: 05/14/20 Location: [facility] Sex: F C Admitted: Test Reason : PREOP Blood Pressure : / mmHG Vent. Rate : 076 BPM Atrial Rate : 076 BPM P-R Int : 152 ms QRS Dur : 078 ms QT Int : 378 ms P-R-T Axes : 068 010 043 degrees QTc Int : 425 ms Normal sinus rhythm Normal ECG Confirmed by SERJIO THOMAS MD ([id number]), business editor ANAT AYALA ([id number]) on 05/18/2020 9:28:15 AM Referred By: Jamaal Moise Confirmed By:SERJIO THOMAS MD 05/18/20927 Date Serjio Thomas MD CC: Dr. Winnie Eid DO; Dr. Jamaal Moise DO Signed Winnie Eid DO Work Phone: Start: 07-07-2019 End: 07-09-2019 SCREEN MAMM (CAD) W/AMY BILAT Comments: See Note; NOTES: [facility] Imaging Services [address] [place] [address] SCREEN MAMM (CAD) W/AMY BILAT MR#: [id number] Acct: [id number] Name: KARLA FOURNIER Rep #: [id number] : 1955 F 63 From: Rocky Lunsford MD PCP: Winnie Eid DO Status: [facility] Study: SCREEN MAMM (CAD) W/AMY BILAT Date of Exam: 07/07/19 Exam# [id number] Ordering Dr: Devora Franco MD MAMMOGRAPHY - BILATERAL SCREENING REASON FOR EXAM: Female, 63 years old. Routine annual screening examination. PERTINENT HISTORY: Non-contributory. History of bilateral breast implants. TECHNIQUE: Digital bilateral breast amy (3D mammographic acquisition) in the CC and MLO projections. 2-D mediolateral oblique (MLO) and craniocaudad (CC) views of both breasts were obtained. CAD: Full Field Digital Mammography with Computer Added Detection was performed. COMPARISON: Comparison is made with prior study dated July 05, 2018 and May 17, 2007. FINDINGS: Breast Composition: There are scattered areas of fibroglandular density. There are no dominant masses or suspicious calcifications. Stable appearance of the bilateral breast implants. Stable appearance of the bilateral axillary lymph nodes. No other significant abnormalities are identified. There has been no significant change since the prior study. BI/SCREEN MAMM (CAD) W/AMY BILAT IMPRESSION: Stable bilateral screening mammogram. Yearly follow-up mammogram recommended. (A) ASSESSMENT CATEGORY: BIRADS Category 2: Benign. A letter regarding these results will be sent to the patient by the facility within 30 days. Approximately 10% of breast cancers are not detected by mammography. A normal mammogram should not delay biopsy of a clinically suspicious abnormality. [id number] Electronically Signed: Rocky Isatu, at 11:10 EST , Service support , CC: Winnie Eid DO; Devora Franco MD Sketch Artist: Signed Winnie Eid Start: 03-06-2019 End: 03-06-2019 Emergency Department Summary Comments: See Note; NOTES: [facility] Medical Records Department [address] [place] [address] Emergency Department Summary 03/06/19 1227 MR#: [id number] Acct: [id number] Name: KARLA FOURNIER Rep #: [id number] : 1955 63 From: Sharee Vegas DO PCP: Winnie Eid DO Status: REG ER - ER Visit Summary Date of Service: 03/06/19 Chief Complaint: [Chest pain] History of Present Illness: The patient is a 63 F [emergency department sudden onset of chest pain around 9:30 AM. Patient describes a pressure that is retrosternal and radiates through to her back. Patient describes it as a burning and this pressure like somebody sitting on her chest. Patient states pain started while at rest. She felt somewhat light headed initially. She denied any diaphoresis, nausea, or shortness of breath with it. She is never had symptoms like this before. She denies any ripping or tearing sensation in her back.] Patient's father had a heart attack in his 60s. Patient does not smoke. She herself has no heart history. She does have a history of hypothyroidism. Physical Examination: [HEENT-PERRLA, EOMI. Cranial nerves II through XII grossly intact. TMs clear. Mucous membranes moist. No adenopathy. Cardiovascular-regular rate and rhythm without murmur or ectopy Lungs-clear to auscultation, chest wall stable without crepitus or subcu emphysema Abdomen-normoactive bowel sounds, soft, nontender, no rebound or rigidity, no peritoneal signs. Extremities-intact 4, normal range of motion, normal pulses, atraumatic] Test Results: [EKG obtained on arrival shows sinus rhythm with a ventricular rate of 63 bpm with no acute segment changes. CBC with differential is normal. Chemistries normal. Troponin is less than 0.015. Chest x-ray showed nothing acute. Dimer ordered and pending.] Emergency Department Course and Treatment: [She received aspirin and sublingual nitro which did not improve her pain therefore she was given 4 mg of morphine and 4 mill grams of Zofran IV.] Treatment Plan: [Admit for further work-up and evaluation of her chest pain] Disposition: [Admit] Impression: [Chest pain-rule out acute current syndrome] This note was generated with Ink[employer] dictation software. It may contain incorrect words, spelling, and punctuation that were not noted in review of the chart prior to signing ED Disposition - Plan for ED Patient: Referrals: Winnie Eid DO [Primary Care Provider] - What to do if you have Problems For any increased pain, shortness of breath, bleeding, nausea or vomiting, chest pain, or any unexpected problems, contact your Primary Care Provider. Call [employer] [facility] ([phone]) or report to the closest Emergency Room. Call 911 if necessary. 03/06/19 1227 <Electronically signed by Remus Ungur DO> Date Sharee Vegas DO Cosigner Signature (If Indicated): Date CC: Winnie Singh Start: 03-06-2019 End: 03-06-2019 Chest 1 View (Portable) Comments: See Note; NOTES: [facility] Imaging Services [address] [facility] [address] Chest 1 View (Portable) MR#: [id number] Acct: [id number] Name: KARLA FOURNIER Rep #: [id number] : 1955 F 63 From: Rocky Lunsford MD PCP: Winnie Eid DO Status: PRE ER Study: Chest 1 View (Portable) Date of Exam: 03/06/19 Exam# [id number] Ordering Dr: ProviderMatthew. STUDY: X-RAY CHEST REASON FOR EXAM: Female, 63 years old. Mid sternal chest pain and pressure. TECHNIQUE: Single AP portable view of the chest. COMPARISON: Comparison is made with prior study dated October 16, 2017. FINDINGS: EKG electrodes are seen. Hyperinflation. There is no demonstrated pleural abnormality. Normal size heart. Normal mediastinum and delia. Normal visualized pulmonary arteries. There is atherosclerotic calcification of the aortic arch with tortuosity. Normal visualized thoracic spine. Normal visualized ribs, clavicles, and shoulders. There is no demonstrated abnormality of the visualized soft tissue structures of the upper abdomen. RAD/Chest 1 View (Portable) IMPRESSION: Hyperinflation. Electronically Signed: Rocky Lunsford, at 11:30 EDT , Service support , CC: ED PHYSICIAN PROVIDER; Winnie Eid DO Sketch Artist: Signed Winnie Eid Start: 10-14-2018 End: 10-14-2018 12 lead ECG Comments: See Note; NOTES: [facility] Cardiovascular Services [address] [place] [address] 12 Lead EKG 10/10/18 0739 MR#: [id number] Acct: [id number] Name: KARLA FOURNIER Rep #: [id number] : 1955 63 From: Bladimir Chaney MD Attending Dr: Tita Orozco MD Status: DEP [facility] Ordering Dr: Patrick Lara MD Date: 10/10/18 Location: [facility] Sex: F C Admitted: Test Reason : PRE OP Blood Pressure : / mmHG Vent. Rate : 060 BPM Atrial Rate : 060 BPM P-R Int : 152 ms QRS Dur : 082 ms QT Int : 410 ms P-R-T Axes : 079 027 050 degrees QTc Int : 410 ms Normal sinus rhythm Normal ECG Confirmed by SHIV LEUNG, BLADIMIR ([id number]), business editor ANAT AYALA ([id number]) on 10/14/2018 12:39:43 PM Referred By: Tita Orozco Confirmed By:BLADIMIR CHANEY MD 10/14/18 1239 Date Bladimir Chaney MD CC: Patrick Lara MD; Winnie Eid DO; MD Tita Orozco Signed Winnie Eid Start: 10-10-2018 End: 10-10-2018 Operative Report Comments: See Note; NOTES: [facility] Medical Records Department [address] [place] [address] Operative Report 10/10/18 1036 MR#: [id number] Acct: [id number] Name: KARLA FOURNIER Rep #: [id number] : 1955 63 From: Tita Orozco MD PCP: Winnie Eid DO Status: REG SD Y Location: [place] [address] Problem List (1) Vaginal vault prolapse after hysterectomy Status: Acute (2) Rectocele Status: Acute (3) Female stress incontinence Status: Acute Report of Operation Date of Procedure: 10/10/18 Pre-Operative Diagnosis: Female stress incontinence, rectocele and vaginal vault prolapse after hysterectomy Post-Operative Diagnosis: same Surgery/Procedure Performed:: Sacrospinous ligament suspension, posterior colporrhaphy, midurethral sling and cystoscopy Description of Surgical Findings:: bilateral ureteral orifices were patient with pyridium stained urine on cystoscopy. No bladder, urethral or rectal injury. assistant purchasing manager: Trish - Sarah He Type of Anesthesia:: General Anesthesiologist: Patrick Lara Special Medications: .5% marcaine with epi Specimen's removed: None Drains: Santiago to PACU Estimated Blood Loss (mL): 100 cc Fluids Replaced: 1100 cc LR Description of Procedure: Patient was taken to the operating and general anesthesia was initiated. The patient was placed in dorsal lithotomy position and prepped and draped in sterile fashion. A Santiago catheter was inserted. A lone star retractor was used for adequate retraction. The vaginal epithelium over the posterior vaginal wall was grasped with Allis clamps and injected with .5% marcaine with epinephrine. A vertical midline incision was made with a 15 blade scalpel. The underlying rectovaginal fascia was dissected off the overlying vaginal epithelium until the herniation was completely isolated. The posterior vaginal wall was then repaired with imbricating sutures of 2-O PDS. Once the herniation was repaired a polypropylene and a PDS suture were passed thru the sacrospinous ligaments bilaterally using the Capio needle front loader residential driver. The vaginal epithelium overlying the midurethra was then grasped with Allis clamp and injected with .5% Marcaine with epinephrine. A vertical midline incision was made with a 15 blade scalpel. Tunnels were dissected bilaterally using Metzenbaum scissors to the pubic rami. The Yessenia passers were then passed through the tunnels, through the space of Retzius and out the skin at the pubic symphysis. The Santiago was removed and cystoscopy was performed. The sling was then drawn up through the tunnels and out the skin at the pubic symphysis. Tension was adjusted and the plastic sheaths were removed. The redundant sling was trimmed at the skin and the skin was repaired with Dermabond. The vaginal epithelium was repaired with a running locking 3-O Vicryl suture. The sacrospinous ligament suspension sutures were brought through the corners of the vaginal cuff. The redundant vaginal epithelium was excised and repaired in the midline with a running locking 3-O Vicryl suture. All needle instrument and sponge counts were correct times two. Anesthesia was discontinued and the patient was taking to the recovery room in stable condition draining clear urine from her Santiago catheter. Grafts/Implants Used: Yessenia Desera Sling - Complications None - Admit VTE Documentation VTE Present on Admission: No VTE Mechan Device Prophylaxis: SCD's VTE Pharm Prophylaxis ordered?: No Reason prophylaxis not ordered:: Procedure Not Indicated 10/10/18 1051 <Electronically signed by Tita Orozco MD> Date Tita Orozco MD CC: Winnie Eid DO; MD Tita Orozco Signed Winnie Eid Start: 10-10-2018 End: 10-10-2018 Discharge Instruction Comments: See Note; NOTES: [facility] Medical Records Department [address] [place] [address] Instructions for Home/Discharge Instructions 10/10/18 1034 MR#: [id number] Acct: [id number] Name: KARLA FOURNIER Rep #: [id number] : 1955 63 From: Tita Orozco MD PCP: Winnie Eid DO Status: REG [facility] Discharge Activity: Return to Normal Activity May resume sexual activity in: 6 weeks Call your doctor if your incision/area has: Sudden Increased Bleeding Call your doctor if you observe: Fever of 101 or Higher, Inability to urinate, Using more than one pad per hour, Uncontrolled pain Change Dressing in (Days):: 4 - Leave steri-strips in place for 1 week. Allergies/Adverse Reactions: Allergies No Known Allergies Allergy (Verified 06/24/15 15:34) Medications to take at Discharge RX: Calcium Carbonate [Calcium] 600 mg PO DAILY 06/24/15 RX: Cholecalciferol (VIT D3) [Vitamin D3] 2,000 unit PO DAILY 06/24/15 RX: Levothyroxine Sodium [Levoxyl] 75 mcg PO DAILY 06/24/15 RX: Multivitamins,Therapeutic [Multivitamin] 1 tablet PO DAILY 06/24/15 Citalopram [Celexa] 20 mg PO DAILY 10/03/18 Ibandronate Sodium [Boniva] 150 mg PO Q30D 10/03/18 RX: Biotin 10,000 mcg PO DAILY 10/03/18 Primary Care Physician: Winnie Eid DO [Primary Care Provider] - Test Results: Test results from this visit will be discussed in further detail at your follow-up appointment, if applicable. Please Follow Up With: Tita Orozco MD When: six weeks Proposed Discharge Date: 10/10/18 10/10/18 1036 <Electronically signed by Tita Orozco MD> Date Tita Orozco MD CC: Winnie Eid DO Signed Winnie Eid Start: 07-05-2018 End: 07-08-2018 SCREENING MAMM (CAD), BILAT Comments: See Note; NOTES: [facility] Imaging Services [address] [place] [address] SCREENING MAMM (CAD), BILAT MR#: [id number] Acct: [id number] Name: ANALIKARLA Jorge Rep #: [id number] : 1955 F 62 From: Rocky Lunsford MD PCP: Winnie Eid DO Status: [facility] Study: SCREENING MAMM (CAD), BILAT Date of Exam: 07/05/18 Exam# [id number] Ordering Dr: Antony Payne MD MAMMOGRAPHY - BILATERAL SCREENING REASON FOR EXAM: Female, 62 years old. Routine annual screening examination. PERTINENT HISTORY: Non-contributory. History of bilateral breast implants. TECHNIQUE: Digital bilateral breast amy (3D mammographic acquisition) in the CC and [...] delay biopsy of a clinically suspicious abnormality. [id number] Electronically Signed: Rocky Lunsford MD at 8:47 EST Tel [phone], Service support , CC: Antony Payne MD; Winnie Eid DO Sketch Artist: Signed Winnie Eid Start: 10-30-2017 End: 10-30-2017 Spine Thoracic (Routine) Comments: See Note; NOTES: [facility] Imaging Services [address] [place] [address] Spine Thoracic (Routine) MR#: [id number] Acct: [id number] Name: KARLA FOURNIER Rep #: [id number] : 1955 F 62 From: Tee Walters MD PCP: Winnie Eid DO Status: PRE CLI Study: Spine Thoracic (Routine) Date of Exam: 10/30/17 Exam# [id number] Ordering Dr: Winnie Eid DO STUDY: MRI [...] bulging of the discs at T9-T10 and S62-15-15 without spinal stenosis. Normal visualized thoracic cord. [...] CC: Keith Bower MD; Winnie Eid DO Sketch Artist: Signed Winnie Eid Work Phone: Start: 10-16-2017 End: 10-16-2017 Chest PA and Lateral Comments: See Note; NOTES: [facility] Imaging Services [address] [place] [address] Chest PA and Lateral MR#: [id number] Acct: [id number] Name: KARLA FOURNIER Rep #: [id number] : 1955 F 62 From: Neil Box MD PCP: Winnie Eid DO Status: REG CLI Study: Chest PA and Lateral Date of Exam: 10/16/17 Exam# [id number] Ordering Dr: Winnie Eid DO STUDY: X-RAY [...] Service support , CC: Winnie Eid DO Sketch Artist: Signed Winnie Eid Work Phone: Start: 10-16-2017 End: 10-16-2017 Thoracic Spine 3 Views Comments: See Note; NOTES: [facility] Imaging Services [address] [place] [address] Thoracic Spine 3 Views MR#: [id number] Acct: [id number] Name: KARLA FOURNIER Rep #: [id number] : 1955 F 62 From: Neil Box MD PCP: Winnie Eid DO Status: REG CLI Study: Thoracic Spine 3 Views Date of Exam: 10/16/17 Exam# [id number] Ordering Dr: Winnie Eid DO STUDY: X-RAY [...] Service support , CC: Winnie Eid DO Sketch Artist: Signed Winnie Eid Work Phone: Start: 10-02-2017 End: 10-03-2017 Dexa Bone Density Study Comments: See Note; NOTES: [facility] Imaging Services [address] [place] [address] Dexa Bone Density Study MR#: [id number] Acct: [id number] Name: KARLA FOURNIER Rep #: [id number] : 1955 F 62 From: Rocky Lunsford MD PCP: Winnie Eid DO Status: [facility] Study: Dexa Bone Density Study Date of Exam: 10/02/17 Exam# [id number] Ordering Dr: Antony Payne MD STUDY: DUAL [...] Rocky Lunsford MD at 8:18 EDT Tel [phone], Service support , CC: Antony Payne MD; Winnie Eid DO Sketch Artist: Signed Winnie Eid Start: 05-17-2017 End: 05-19-2017 SCREENING MAMM (CAD), BILAT Comments: See Note; NOTES: [facility] Imaging Services [address] [place] [address] SCREENING MAMM (CAD), BILAT MR#: [id number] Acct: [id number] Name: KARLA FOURNIER Rep #: [id number] : 1955 F 61 From: Rocky Lunsford MD PCP: Winnie Eid DO Status: REG CLI Study: SCREENING MAMM (CAD), BILAT Date of Exam: 05/17/17 Exam# [id number] Ordering Dr: Antony Payne MD MAMMOGRAPHY - BILATERAL SCREENING REASON FOR EXAM: Female, 61 years old. Routine annual screening examination. PERTINENT HISTORY: Non-contributory. Remote bilateral breast implants. TECHNIQUE: Digital bilateral breast amy (3D mammographic acquisition) in the CC and [...] the prior study. HPBI/SCREENING MAMM (CAD), BILAT IMPRESSION: Stable bilateral screening mammogram. Yearly follow-up mammogram recommended. (A) ASSESSMENT CATEGORY: BIRADS Category 2: Benign. A letter regarding these results will be sent to the patient by the facility within 30 days. Approximately 10% of breast cancers are not detected by mammography. A normal mammogram should not delay biopsy of a clinically suspicious abnormality. [id number] Electronically Signed: Rocky Lunsford MD at 9:00 EST Tel [phone], Service support , CC: Antony Payne MD; Winnie Eid DO Sketch Artist: Signed Winnie Eid Start: 08-10-2016 End: 08-10-2016 12 lead ECG Comments: See Note; NOTES: [facility] Cardiovascular Services [address] [place] [address] 12 Lead EKG 08/08/161655 MR#: [id number] Acct: [id number] Name: KARLA FOURNIER Rep #: [id number] : 1955 60 From: Maco Pinto MD Attending Dr: Jamaal Moise DO Status: REG I Ordering Dr: Jamaal Moise DO Date: 08/08/16 Location: [facility] Sex: F C Admitted: Test Reason : PREOP Blood Pressure : / mmHG Vent. Rate : 059 BPM Atrial Rate : 059 BPM P-R Int : 172 ms QRS Dur : 084 ms QT Int : 412 ms P-R-T Axes : 076 042 057 degrees QTc Int : 407 ms Sinus bradycardia Otherwise normal ECG Confirmed by MACO PINTO ([id number]), business editor SMOOTH BRENNER ([id number]) on 08/10/2016 1:11:57 PM Referred By: TAHIRA Confirmed By:MACO PINTO 08/10/16 1312 Date Maco Pinto MD CC: Winnie Eid DO Date Dictated: 08/08/161655 Date Transcribed: 08/08/161655 Sketch Artist: Signed Winnie Eid Start: 05-16-2016 End: 05-16-2016 PT D/C Summary (1) Comments: See Note; NOTES: [facility] [address] [place] [address] Fax REHABILITATION SERVICES DISCHARGE SUMMARY MR#: [id number] Acct: [id number] Name: KARLA FOURNIER Rep #: [id number] : 1955 60 From: Cert. ALIREZA Jeffrey PT, OCS Referring Dr.: Winnie Eid DO Status: REG RCR Insurance: [facility] - PT D/C Summary It has been my pleasure to treat KARLA FOURNIER under orders from Winnie Eid, for the diagnosis of MUSCLE SPASMS ,LEFT SHOULDER MILD IMPINGEMENT for a total of 8 visit(s). Discharge Date: 05/15/16 Please see the following information for a summary of their discharge status. - Subjective Subjective: Doing well ..seen DR - Pain Left Scapula Pain Intensity (Out of 10): 0 left shoulder Pain Intensity (Out of 10): 0 - Overall Improvement % Improvement: 90 - Objective Objective/Function: POSTURE: WNL. AROM: SHOULDER FLEXION/ABD 155 ,ER 90. MMT:4/5 RTC/DELTOID. CERVICAL ROM: WFL - Goals Goal 1:: [...] tasks with min to no limitations Goal Progress: Goal Met - Plan Plan: D/C - D/C Information Discharge Comments: MET GOALS If there are questions or concerns regarding this patient's physical therapy, please feel free to call me at [phone]. Thank you for the referral of this patient. Sincerely, Keith Goldstein PT, <Electronically signed by Keith Goldstein PT, Cert. ALIREZA, OCS> 05/16/16 0926 CC: Winnie Eid DO HANNAA Signed Winnie Eid Start: 03-31-2016 End: 03-31-2016 Inital Evaluation (1) - PT Comments: See Note; NOTES: [facility] [address] [place], [place] [id number] Fax REHABILITATION SERVICES INITIAL EVALUATION MR#: [id number] Acct: [id number] Name: KARLA FOURNIER Rep #: [id number] : 1955 60 From: Keith Goldstein PT, Cert. MDT, OCS Referring Dr.: Winnie Eid DO Status: REG RCR Insurance: ANTH Patient's Visit Information KARLA FOURNIER is a [...] had history left shoulder for RTC. Symptoms worse with lifting over head,above 90 degrees for ADL' S. Denies parathesia/tingling. Pain affects sleeping.Seen DR, x-ray ,MEDS-predisone/muscle relaxer.Pain locate shoulder blade ocassional sharp lateral deltoid. 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 SOCAIL: - Pain Left Scapula Pain Intensity (Out of 10): 8 Pain Intensity Range: 10 - Objective POSTURE: rounded shoulders head foward. PALPATION:tender medial border of scapular. AROM CERVICAL : WFL flexion/extension,rotation,la teral flexion min loss. NEURO:inact ,reflexes C5-6 -7. AROM: shoulder flexion /abduction 160 degrees,ER 90 degrees ,IR 75 degrees. MMT: anterior/lateral deltoid 4-/5,RTC 4/5 - Special Tests C/S Radiculapathy - Left Upper limb tension test: Negative C/S Radiculapathy - Right Upper limb tension test: Negative C/S Radiculapathy - Left Spurlings: Negative C/S Radiculapathy - [...] job demands and housework tasks. Goal Time Frame: 4-6 Weeks Goal 3:: Patient to be independant with posture for job demands Goal Time Frame: 4-6 Weeks Goal 4:: Patient to be able to perform job demands and houswork tasks with min to no limitations Goal Time Frame: 4-6 Weeks - Rehabilitation Potential [...] Include: Strength training, Body mechanics, Postural training, Flexibilty training, Scapular Strength/Stabilization For the Purpose of:: To decrease pain, To increase ROM, To improve muscle performance and motor function, To improve ability to perform ADL's, To increase tolerance to activity/condition/ position, To decrease level of supervision to perform tasks, To improve ability of physical actions for home/community/work/leisure, To improve health of tissue, To increase flexibility/ ROM, To reduce risk of recurrence, To improve self management, To prevent re-injury, To improve ability to perform tasks related to life management Manual Therapy Techniques to Include: Trigger point massage, Mobilization, Soft tissue mobilization For the Purpose of:: To decrease pain, To decrease swelling/inflammation, To improve nutrient delivery to tissue, To improve muscle performance and motor function, To improve health of tissue, To decrease soft tissue restriction, To increase flexibility/ROM IF ES: Yes Cryotherapy (ice pack, ice massage): Yes Thermo therapy (hot pack): Yes Ultrasound (thermal/non thermal): Yes For the Purpose of:: To decrease pain, To decrease swelling/inflammation, To improve nutrient delivery to tissue, To increase oxygenation perfusion, To improve health of tissue, To decrease soft tissue restriction Thank you for the opportunity to evaluate your patient. For Medicare and Medicare HMO plans, please review the plan of care and approve it. It will need to be FAXED BACK to us at [phone] for Medicare purposes. Please let me know if there are questions or concerns regarding this plan of care. Physician Signature: _Date: <Electronically signed by Keith Goldstein PT, Cert. T, OCS> 03/31/16 0934 CC: Winnie Eid DO ANIBAL Signed For Medicare only, by signing this I certify the plan of care. Physicians Signature Date Winnie Eid Start: 03-30-2016 End: 03-31-2016 Bilat Scrn Digital AND CAD Comments: See Note; NOTES: [facility] Imaging Services [address] [place] [address] Verdana 4d Bilat Scrn Digital AND CAD MR#: [id number] Acct: [id number] Name: KARLA FOURNIER Rep #: [id number] : 1955 F 60 From: Zara Brown MD PCP: Winnie Eid DO Status: REG CLI Study: Bilat Scrn Digital AND CAD Date of Exam: 03/30/16 Exam# [id number] Ordering Dr: Roscoe, Marilyn [facility] MAMMOGRAPHY - BILATERAL SCREENING REASON FOR EXAM: Female, 60 years old. Routine annual screening examination. PERTINENT HISTORY: NO FAM HX - BILAT IMPLANTS 30+ YRS AGO TECHNIQUE: Digital bilateral breast amy (3D mammographic acquisition) in the CC and [...] abnormalities are identified. HPBI/Bilat Scrn Digital AND CAD IMPRESSION: Stable bilateral screening mammogram. Yearly follow-up mammogram recommended. (A) ASSESSMENT CATEGORY: BIRADS Category 2: Benign. A letter regarding these results will be sent to the patient by the facility within 30 days. Approximately 10% of breast cancers are not detected by mammography. A normal mammogram should not delay biopsy of a clinically suspicious abnormality. [id number] Electronically Signed: Zara Brown MD at 16:48 EDT Tel , Service support [phone], CC: Marilyn York; Winnie Eid DO Sketch Artist: Signed Winnie Eid Work Phone: Start: 03-30-2016 End: 03-30-2016 Shoulder min 2 Views Comments: See Note; NOTES: [facility] Imaging Services [facility] [address] [place] [address] Verdana 4d Shoulder min 2 Views MR#: [id number] Acct: [id number] Name: ANALIKARLA Rep #: [id number] : 1955 F 60 From: Hebert Rasmussen MD PCP: Winnie Eid DO Status: REG CLI Study: Shoulder min 2 Views Date of Exam: 03/30/16 Exam# [id number] Ordering Dr: Winnie Eid DO STUDY: X-RAY - LEFT SHOULDER REASON FOR EXAM: Female, 60 years old. Pain without injury TECHNIQUE: 4 view(s) of the shoulder. COMPARISON: None. FINDINGS: Normal glenohumeral articulation. Normal acromioclavicular joint. Normal acromion. Normal humeral head and visualized proximal humerus. The soft tissue structures are unremarkable. Normal visualized pulmonary apex. RAD/Shoulder min 2 Views IMPRESSION: Normal x-ray examination of the shoulder. Electronically Signed: Hebert Rasmussen MD, FACR at 15:41 EDT , Service support [phone], CC: Winnie Eid DO Sketch Artist: Signed Winnie Edi Work Phone: Start: 06-30-2015 End: 06-30-2015 Discharge Instruction Comments: See Note; NOTES: [facility] Medical Records Department [address] [place] [address] Instructions for Home/Discharge Instructions 06/30/15 0908 MR#: [id number] Acct: [id number] Name: KARLA FOURNIER Rep #: [id number] : 1955 59 From: Antony Payne MD PCP: Katelynn Manzanares MD Status: REG [facility] Discharge Diet: No Restrictions Discharge Activity: May Not Drive, May not drive while taking narcotic pain medications., May Shower Return to work on:: 08/02/15 May shower in (days): 0 May resume sexual activity in: 6 weeks Lifting Restrictions: 20 lbs Call your doctor if your incision/area has: Sudden Increased Bleeding, Increased Pain/ Swelling , Foul Smelling Discharge, Swelling at the incision site Call your doctor if you observe: Fever of 101 or Higher, Inability to urinate, Inability to have a bowel movement, Using more than one pad per hour, Shortness of breath, Chest pain, Uncontrolled pain Suture Line Care: Avoid Pulling/Pushing Cleanse incision/area with: Soap AND Water Allergies/Adverse Reactions: Allergies No Known Allergies Allergy (Verified 06/24/15 15:34) Medications to take at Discharge RX: Calcium Carbonate [Calcium] 600 mg PO DAILY 06/24/15 RX: Cholecalciferol (VIT D3) [Vitamin D3] 2,000 unit PO DAILY 06/24/15 RX: Duloxetine HCl 30 mg PO DAILY 06/24/15 RX: Levothyroxine Sodium [Levoxyl] 75 mcg PO DAILY 06/24/15 RX: Multivitamins,Therapeutic [Multivitamin] 1 tablet PO DAILY 06/24/15 RX: [place]-3 Fatty Acids/Fish Oil [Fish Oil 1,000 mg Capsule] 1 each PO DAILY 06/24/15 RX: Vitamin E Acetate [Vitamin E] 400 unit PO DAILY 06/24/15 RX: Zinc Gluconate [...] moderate pain Please Follow Up With: Antony Payne When: one week Proposed Discharge Date: 07/01/15 06/30/15908 <Electronically signed by Antony Payne MD> Date Antony Payne MD CC: Katelynn Eid Start: 06-25-2015 End: 06-25-2015 12 lead ECG Comments: See Note; NOTES: [facility] Cardiovascular Services [address] [place] [address] 12 Lead EKG 06/23/151644 MR#: [id number] Acct: [id number] Name: KARLA FOURNIER Rep #: [id number] : 1955 59 From: Maco Pinto MD Attending Dr: Antony Payne MD Status: PRE SDC Ordering Dr: Antony Payne MD Date: 06/23/15 Location: [facility] Sex: F C Admitted: Test Reason : PRE-OP Blood Pressure : / mmHG Vent. Rate : 060 BPM Atrial Rate : 060 BPM P-R Int : 162 ms QRS Dur : 088 ms QT Int : 412 ms P-R-T Axes : 079 077 070 degrees QTc Int : 412 ms Normal sinus rhythm Normal ECG Confirmed by MACO PINTO ([id number]), business editor SMOOTH BRENNER ([id number]) on 06/25/2015 1:57:03 PM Referred By: COREY Confirmed By:MACO PINTO 06/25/15 1357 Date Maco Pinto MD CC: Katelynn Manzanares MD Date Dictated: 06/23/151644 Date Transcribed: 06/23/151644 Sketch Artist: Signed Winnie Eid Start: 06-23-2015 End: 06-23-2015 Chest PA and Lateral Comments: See Note; NOTES: [facility] Imaging Services [address] [place] [address] Verdana 4d Chest PA and Lateral MR#: [id number] Acct: [id number] Name: KARLA FOURNIER Rep #: [id number] : 1955 F 59 From: Norberto Abrams DO PCP: Katelynn Manzanares MD Status: PRE SDC Study: Chest PA and Lateral Date of Exam: 06/23/15 Exam# [id number] Ordering Dr: Antony Payne MD STUDY: X-RAY CHEST REASON FOR EXAM: Female, 59 years old. Preop. Smoking history. TECHNIQUE: PA and lateral views of the chest. COMPARISON: December 12, 2012. FINDINGS: The lungs are mildly hyperinflated. There is no acute infiltrate or mass. There is no demonstrated pleural abnormality. Normal size heart. Normal mediastinum and delia. Normal visualized pulmonary arteries. Normal visualized aortic arch and descending thoracic aorta. Normal visualized thoracic spine. Normal visualized ribs, clavicles, and shoulders. There is no demonstrated abnormality of the visualized soft tissue structures of the upper abdomen. IMPRESSION: Hyperinflated lungs without acute cardiopulmonary disease or interval change. Electronically Signed: Norberto Abrams DO at 17:03 EST Tel [phone], Service support [phone], RAD/Chest PA and Lateral IMPRESSION: Hyperinflated lungs without acute cardiopulmonary disease or interval change. Electronically Signed: Norberto Abrams DO at 17:03 EST Tel [phone], Service support [phone], CC: Katelynn Manzanares MD; Antony Payne MD Sketch Artist: Signed Winnie Ragini Start: 06-23-2015 Antibody screen Winnie Eid Plan of Treatment Date Care Activity Detail Author Start: 11-21-2021 Procedure Education Eprescribed prescriptions (G8553) [facility]; [facility] Work Phone: Start: 11-21-2021 Provider Instructions for Treatment [facility]; [facility] Work Phone: Start: 11-21-2021 Urinalysis qual/semiquant except immunoassays URINALYSIS (27258) [facility]; [facility] Work Phone: Start: 11-21-2021 Urine albumin quantitative MICROALBUMIN: CREATININE RATIO (53903) AND (55959) [facility]; [facility] Work Phone: Start: 11-21-2021 Comprehensive metabolic panel METABOLIC PANEL, COMPREHENSIVE (85666) [facility]; [facility] Work Phone: Start: 11-21-2021 Lipid panel LIPID PANEL (41548) [facility]; [facility] Work Phone: Start: 11-21-2021 Blood count complete auto&auto difrntl wbc CBC W/AUTO DIFF WBC (10871) [facility]; [facility] Work Phone: Start: 11-21-2021 Assay of thyroid stimulating hormone tsh TSH (84568) [facility]; [facility] Work Phone: Start: 08-17-2021 Procedure Education Eprescribed prescriptions (G8553) [facility]; [facility] Work Phone: Start: 08-17-2021 Provider Instructions for Treatment [facility] [facility]; [facility] Work Phone: Start: 06-20-2021 Procedure Education Eprescribed prescriptions (G8553) [facility] Work Phone: Start: 06-20-2021 Provider Instructions for Treatment [facility] Work Phone: Start: 06-09-2021 Assay of osmolality urine OSMOLALITY URINE (91940) [facility]; [facility] Work Phone: Start: 06-09-2021 Assay of urine sodium SODIUM URINE ([id number]) [facility] Work Phone: Start: 06-06-2021 Procedure Education Eprescribed prescriptions (G8553) [facility]; [facility] Work Phone: Start: 06-06-2021 Provider Instructions for Treatment Follow up in 2 weeks [facility]; [facility] Work Phone: Start: 05-19-2021 Procedure Education Eprescribed prescriptions (G8553) [facility]; [facility] Work Phone: Start: 05-19-2021 Provider Instructions for Treatment [facility] Work Phone: Start: 04-22-2020 Procedure Education Eprescribed prescriptions (G8553) [facility] Work Phone: Start: 04-22-2020 Provider Instructions for Treatment Continue Current Prescription(s) [facility] Work Phone: Start: 04-22-2020 Lipid panel LIPID PANEL (41452) [facility] Work [facility]: Start: 04-22-2020 TSH Qn TSH ([id number]) [facility] Work Phone: Start: 03-03-2019 Patient Education Common Cold *: upper respiratory infection [facility] Work Phone: Start: 03-03-2019 Procedure Education Eprescribed prescriptions (G8553) [facility] Work Phone: Start: 03-03-2019 Provider Instructions for Treatment Follow up if no improvement or if symptoms worsen [facility] Work Phone: Start: 03-03-2019 [employer] streptococcus [employer] a Rapid Strep Test, Office ([id number]) [facility]; [facility] Work Phone: Payers Date Payer Category Payer Unknown [id number] 2015 Unknown [id number] 2014 Unknown [id number] 2006 Unknown [id number] 1956 Unknown [id number] Private Health Insurance [id number] Unknown Social History Date Type Detail Facility Alcohol Use Alcohol Use [facility] Work Phone: Instructions Note Date & Type Note Facility [facility] Work Phone: Instructions Note Date & Type Note Facility [facility]; [facility] Work Phone: Instructions Note Date & Type Note Facility [facility]; [facility] Work Phone: Instructions Note Date & Type Note Facility [facility]; [facility] Work Phone: Instructions Note Date & Type Note Facility [facility]; [facility] Work Phone: Instructions Note Date & Type Note Facility [facility]; [facility] Work Phone: Instructions Note Date & Type Note Facility [facility]; [facility] Work Phone: Instructions Note Date & Type Note Facility [facility]; [facility] Work Phone: Instructions Note Date & Type Note Facility [facility]; [facility] Work Phone: Instructions Note Date & Type Note Facility [facility]; [facility] Work Phone: Summary Purpose Family History No Family History Records FoundNo Family History Records Found Advance Directives No Advanced Directives Records FoundNo Advanced Directives Records Found Instructions Name Dates Details How to access health informa tion online Indication:Tobacco abuse, in remission (Renamed from Tobacco dependence in remission) Start:21-Oct-2018 Instruction Type:Patient Education How to access health informa tion online - Detail Indication:Tobacco abuse, in remission (Renamed from Tobacco dependence in remission) Start:21-Oct-2018 Instruction Type:Patient Education Patient Instructions Indication:Tobacco abuse, in remission (Renamed from Tobacco dependence in remission) Start:21-Oct-2018 Instruction Type:Provider Instructions for Treatment How to access health informa tion online Indication:Anxiety Start:18-Sep-2018 Instruction Type:Patient Education How to access health informa tion online - Detail Indication:Anxiety Start:18-Sep-2018 Instruction Type:Patient Education Patient Instructions Indication:Anxiety Start:18-Sep-2018 Instruction Type:Provider Instructions for Treatment How to access health informa tion online Indication:Nonsmoker Start:05-Nov-2017 Instruction Type:Patient Education How to access health informa tion online - Detail Indication:Nonsmoker Start:05-Nov-2017 Instruction Type:Patient Education Patient Instructions Indication:Nonsmoker Start:05-Nov-2017 Instruction Type:Provider Instructions for Treatment How to access health informa tion online Indication:Tobacco abuse, in remission (Renamed from Tobacco dependence in remission) Start:22-Oct-2017 Instruction Type:Patient Education How to access health informa tion online - Detail Indication:Tobacco abuse, in remission (Renamed from Tobacco dependence in remission) Start:22-Oct-2017 Instruction Type:Patient Education Patient Instructions Indication:Tobacco abuse, in remission (Renamed from Tobacco dependence in remission) Start:22-Oct-2017 Instruction Type:Provider Instructions for Treatment How to access health informa tion online Indication:Nonsmoker Start:15-Oct-2017 Instruction Type:Patient Education How to access health informa tion online - Detail Indication:Nonsmoker Start:15-Oct-2017 Instruction Type:Patient Education Patient Instructions Indication:Nonsmoker Start:15-Oct-2017 Instruction Type:Provider Instructions for Treatment How to access health informa tion online Indication:BMI between 19-24,adult Start:28-May-2017 Instruction Type:Patient Education How to access health informa tion online - Detail Indication:BMI between 19-24,adult Start:28-May-2017 Instruction Type:Patient Education Patient Instructions Indication:BMI between 19-24,adult Start:28-May-2017 Instruction Type:Provider Instructions for Treatment How to access health informa tion online Indication:Sore throat Start:31-Oct-2016 Instruction Type:Patient Education How to access health informa tion online - Detail Indication:Sore throat Start:31-Oct-2016 Instruction Type:Patient Education Patient Instructions Indication:Sore throat Start:31-Oct-2016 Instruction Type:Provider Instructions for Treatment How to access health informa tion online Indication:Earache Start:14-Aug-2016 Instruction Type:Patient Education How to access health informa tion online - Detail Indication:Earache Start:14-Aug-2016 Instruction Type:Patient Education Patient Instructions Indication:Earache Start:14-Aug-2016 Instruction Type:Provider Instructions for Treatment How to access health informa tion online Indication:Shoulder impingement, left Start:08-May-2016 Instruction Type:Patient Education How to access health informa tion online - Detail Indication:Shoulder impingement, left Start:08-May-2016 Instruction Type:Patient Education Patient Instructions Indication:Shoulder impingement, left Start:08-May-2016 Instruction Type:Provider Instructions for Treatment How to access health informa tion online Indication:S/P hysterectomy Start:13-Jul-2015 Instruction Type:Patient Education How to access health informa tion online - Detail Indication:S/P hysterectomy Start:13-Jul-2015 Instruction Type:Patient Education Patient Instructions Indication:S/P hysterectomy Start:13-Jul-2015 Instruction Type:Provider Instructions for Treatment How to access health informa tion online Indication:Myalgia Start:31-May-2015 Instruction Type:Patient Education How to access health informa tion online - Detail Indication:Myalgia Start:31-May-2015 Instruction Type:Patient Education Patient Instructions Indication:Myalgia Start:31-May-2015 Instruction Type:Provider Instructions for Treatment How to access health informa tion online Indication:Hypothyroidism Start:17-May-2015 Instruction Type:Patient Education How to access health informa tion online - Detail Indication:Hypothyroidism Start:17-May-2015 Instruction Type:Patient Education Patient Instructions Indication:Hypothyroidism Start:17-May-2015 Instruction Type:Provider Instructions for Treatment Patient Instructions Indication:Hypothyroidism Start:25-Nov-2013 Instruction Type:Provider Instructions for Treatment Patient Instructions Indication:Calcium kidney stone Start:16-Feb-2012 Instruction Type:Provider Instructions for Treatment Name Dates Details How to access health informa tion online Indication:Nonsmoker Start:03-Mar-2019 Instruction Type:Patient Education How to access health informa tion online - Detail Indication:Nonsmoker Start:03-Mar-2019 Instruction Type:Patient Education Patient Instructions Indication:Upper respiratory infection, viral Start:03-Mar-2019 Instruction Type:Provider Instructions for Treatment How to access health informa tion online Indication:Tobacco abuse, in remission (Renamed from Tobacco dependence in remission) Start:21-Oct-2018 Instruction Type:Patient Education How to access health informa tion online - Detail Indication:Tobacco abuse, in remission (Renamed from Tobacco dependence in remission) Start:21-Oct-2018 Instruction Type:Patient Education Patient Instructions Indication:Tobacco abuse, in remission (Renamed from Tobacco dependence in remission) Start:21-Oct-2018 Instruction Type:Provider Instructions for Treatment How to access health informa tion online Indication:Anxiety Start:18-Sep-2018 Instruction Type:Patient Education How to access health informa tion online - Detail Indication:Anxiety Start:18-Sep-2018 Instruction Type:Patient Education Patient Instructions Indication:Anxiety Start:18-Sep-2018 Instruction Type:Provider Instructions for Treatment How to access health informa tion online Indication:Nonsmoker Start:05-Nov-2017 Instruction Type:Patient Education How to access health informa tion online - Detail Indication:Nonsmoker Start:05-Nov-2017 Instruction Type:Patient Education Patient Instructions Indication:Nonsmoker Start:05-Nov-2017 Instruction Type:Provider Instructions for Treatment How to access health informa tion online Indication:Tobacco abuse, in remission (Renamed from Tobacco dependence in remission) Start:22-Oct-2017 Instruction Type:Patient Education How to access health informa tion online - Detail Indication:Tobacco abuse, in remission (Renamed from Tobacco dependence in remission) Start:22-Oct-2017 Instruction Type:Patient Education Patient Instructions Indication:Tobacco abuse, in remission (Renamed from Tobacco dependence in remission) Start:22-Oct-2017 Instruction Type:Provider Instructions for Treatment How to access health informa tion online Indication:Nonsmoker Start:15-Oct-2017 Instruction Type:Patient Education How to access health informa tion online - Detail Indication:Nonsmoker Start:15-Oct-2017 Instruction Type:Patient Education Patient Instructions Indication:Nonsmoker Start:15-Oct-2017 Instruction Type:Provider Instructions for Treatment How to access health informa tion online Indication:BMI between 19-24,adult Start:28-May-2017 Instruction Type:Patient Education How to access health informa tion online - Detail Indication:BMI between 19-24,adult Start:28-May-2017 Instruction Type:Patient Education Patient Instructions Indication:BMI between 19-24,adult Start:28-May-2017 Instruction Type:Provider Instructions for Treatment How to access health informa tion online Indication:Sore throat Start:31-Oct-2016 Instruction Type:Patient Education How to access health informa tion online - Detail Indication:Sore throat Start:31-Oct-2016 Instruction Type:Patient Education Patient Instructions Indication:Sore throat Start:31-Oct-2016 Instruction Type:Provider Instructions for Treatment How to access health informa tion online Indication:Earache Start:14-Aug-2016 Instruction Type:Patient Education How to access health informa tion online - Detail Indication:Earache Start:14-Aug-2016 Instruction Type:Patient Education Patient Instructions Indication:Earache Start:14-Aug-2016 Instruction Type:Provider Instructions for Treatment How to access health informa tion online Indication:Shoulder impingement, left Start:08-May-2016 Instruction Type:Patient Education How to access health informa tion online - Detail Indication:Shoulder impingement, left Start:08-May-2016 Instruction Type:Patient Education Patient Instructions Indication:Shoulder impingement, left Start:08-May-2016 Instruction Type:Provider Instructions for Treatment How to access health informa tion online Indication:S/P hysterectomy Start:13-Jul-2015 Instruction Type:Patient Education How to access health informa tion online - Detail Indication:S/P hysterectomy Start:13-Jul-2015 Instruction Type:Patient Education Patient Instructions Indication:S/P hysterectomy Start:13-Jul-2015 Instruction Type:Provider Instructions for Treatment How to access health informa tion online Indication:Myalgia Start:31-May-2015 Instruction Type:Patient Education How to access health informa tion online - Detail Indication:Myalgia Start:31-May-2015 Instruction Type:Patient Education Patient Instructions Indication:Myalgia Start:31-May-2015 Instruction Type:Provider Instructions for Treatment How to access health informa tion online Indication:Hypothyroidism Start:17-May-2015 Instruction Type:Patient Education How to access health informa tion online - Detail Indication:Hypothyroidism Start:17-May-2015 Instruction Type:Patient Education Patient Instructions Indication:Hypothyroidism Start:17-May-2015 Instruction Type:Provider Instructions for Treatment Patient Instructions Indication:Hypothyroidism Start:25-Nov-2013 Instruction Type:Provider Instructions for Treatment Patient Instructions Indication:Calcium kidney stone Start:16-Feb-2012 Instruction Type:Provider Instructions for Treatment Name Dates Details How to access health informa tion online Indication:Nonsmoker Start:03-Mar-2019 Instruction Type:Patient Education How to access health informa tion online - Detail Indication:Nonsmoker Start:03-Mar-2019 Instruction Type:Patient Education Patient Instructions Indication:Upper respiratory infection, viral Start:03-Mar-2019 Instruction Type:Provider Instructions for Treatment How to access health informa tion online Indication:Tobacco abuse, in remission (Renamed from Tobacco dependence in remission) Start:21-Oct-2018 Instruction Type:Patient Education How to access health informa tion online - Detail Indication:Tobacco abuse, in remission (Renamed from Tobacco dependence in remission) Start:21-Oct-2018 Instruction Type:Patient Education Patient Instructions Indication:Tobacco abuse, in remission (Renamed from Tobacco dependence in remission) Start:21-Oct-2018 Instruction Type:Provider Instructions for Treatment How to access health informa tion online Indication:Anxiety Start:18-Sep-2018 Instruction Type:Patient Education How to access health informa tion online - Detail Indication:Anxiety Start:18-Sep-2018 Instruction Type:Patient Education Patient Instructions Indication:Anxiety Start:18-Sep-2018 Instruction Type:Provider Instructions for Treatment How to access health informa tion online Indication:Nonsmoker Start:05-Nov-2017 Instruction Type:Patient Education How to access health informa tion online - Detail Indication:Nonsmoker Start:05-Nov-2017 Instruction Type:Patient Education Patient Instructions Indication:Nonsmoker Start:05-Nov-2017 Instruction Type:Provider Instructions for Treatment How to access health informa tion online Indication:Tobacco abuse, in remission (Renamed from Tobacco dependence in remission) Start:22-Oct-2017 Instruction Type:Patient Education How to access health informa tion online - Detail Indication:Tobacco abuse, in remission (Renamed from Tobacco dependence in remission) Start:22-Oct-2017 Instruction Type:Patient Education Patient Instructions Indication:Tobacco abuse, in remission (Renamed from Tobacco dependence in remission) Start:22-Oct-2017 Instruction Type:Provider Instructions for Treatment How to access health informa tion online Indication:Nonsmoker Start:15-Oct-2017 Instruction Type:Patient Education How to access health informa tion online - Detail Indication:Nonsmoker Start:15-Oct-2017 Instruction Type:Patient Education Patient Instructions Indication:Nonsmoker Start:15-Oct-2017 Instruction Type:Provider Instructions for Treatment How to access health informa tion online Indication:BMI between 19-24,adult Start:28-May-2017 Instruction Type:Patient Education How to access health informa tion online - Detail Indication:BMI between 19-24,adult Start:28-May-2017 Instruction Type:Patient Education Patient Instructions Indication:BMI between 19-24,adult Start:28-May-2017 Instruction Type:Provider Instructions for Treatment How to access health informa tion online Indication:Sore throat Start:31-Oct-2016 Instruction Type:Patient Education How to access health informa tion online - Detail Indication:Sore throat Start:31-Oct-2016 Instruction Type:Patient Education Patient Instructions Indication:Sore throat Start:31-Oct-2016 Instruction Type:Provider Instructions for Treatment How to access health informa tion online Indication:Earache Start:14-Aug-2016 Instruction Type:Patient Education How to access health informa tion online - Detail Indication:Earache Start:14-Aug-2016 Instruction Type:Patient Education Patient Instructions Indication:Earache Start:14-Aug-2016 Instruction Type:Provider Instructions for Treatment How to access health informa tion online Indication:Shoulder impingement, left Start:08-May-2016 Instruction Type:Patient Education How to access health informa tion online - Detail Indication:Shoulder impingement, left Start:08-May-2016 Instruction Type:Patient Education Patient Instructions Indication:Shoulder impingement, left Start:08-May-2016 Instruction Type:Provider Instructions for Treatment How to access health informa tion online Indication:S/P hysterectomy Start:13-Jul-2015 Instruction Type:Patient Education How to access health informa tion online - Detail Indication:S/P hysterectomy Start:13-Jul-2015 Instruction Type:Patient Education Patient Instructions Indication:S/P hysterectomy Start:13-Jul-2015 Instruction Type:Provider Instructions for Treatment How to access health informa tion online Indication:Myalgia Start:31-May-2015 Instruction Type:Patient Education How to access health informa tion online - Detail Indication:Myalgia Start:31-May-2015 Instruction Type:Patient Education Patient Instructions Indication:Myalgia Start:31-May-2015 Instruction Type:Provider Instructions for Treatment How to access health informa tion online Indication:Hypothyroidism Start:17-May-2015 Instruction Type:Patient Education How to access health informa tion online - Detail Indication:Hypothyroidism Start:17-May-2015 Instruction Type:Patient Education Patient Instructions Indication:Hypothyroidism Start:17-May-2015 Instruction Type:Provider Instructions for Treatment Patient Instructions Indication:Hypothyroidism Start:25-Nov-2013 Instruction Type:Provider Instructions for Treatment Patient Instructions Indication:Calcium kidney stone Start:16-Feb-2012 Instruction Type:Provider Instructions for Treatment Name Dates Details How to access health informa tion online Indication:Nonsmoker Start:03-Mar-2019 Instruction Type:Patient Education How to access health informa tion online - Detail Indication:Nonsmoker Start:03-Mar-2019 Instruction Type:Patient Education Patient Instructions Indication:Upper respiratory infection, viral Start:03-Mar-2019 Instruction Type:Provider Instructions for Treatment How to access health informa tion online Indication:Tobacco abuse, in remission (Renamed from Tobacco dependence in remission) Start:21-Oct-2018 Instruction Type:Patient Education How to access health informa tion online - Detail Indication:Tobacco abuse, in remission (Renamed from Tobacco dependence in remission) Start:21-Oct-2018 Instruction Type:Patient Education Patient Instructions Indication:Tobacco abuse, in remission (Renamed from Tobacco dependence in remission) Start:21-Oct-2018 Instruction Type:Provider Instructions for Treatment How to access health informa tion online Indication:Anxiety Start:18-Sep-2018 Instruction Type:Patient Education How to access health informa tion online - Detail Indication:Anxiety Start:18-Sep-2018 Instruction Type:Patient Education Patient Instructions Indication:Anxiety Start:18-Sep-2018 Instruction Type:Provider Instructions for Treatment How to access health informa tion online Indication:Nonsmoker Start:05-Nov-2017 Instruction Type:Patient Education How to access health informa tion online - Detail Indication:Nonsmoker Start:05-Nov-2017 Instruction Type:Patient Education Patient Instructions Indication:Nonsmoker Start:05-Nov-2017 Instruction Type:Provider Instructions for Treatment How to access health informa tion online Indication:Tobacco abuse, in remission (Renamed from Tobacco dependence in remission) Start:22-Oct-2017 Instruction Type:Patient Education How to access health informa tion online - Detail Indication:Tobacco abuse, in remission (Renamed from Tobacco dependence in remission) Start:22-Oct-2017 Instruction Type:Patient Education Patient Instructions Indication:Tobacco abuse, in remission (Renamed from Tobacco dependence in remission) Start:22-Oct-2017 Instruction Type:Provider Instructions for Treatment How to access health informa tion online Indication:Nonsmoker Start:15-Oct-2017 Instruction Type:Patient Education How to access health informa tion online - Detail Indication:Nonsmoker Start:15-Oct-2017 Instruction Type:Patient Education Patient Instructions Indication:Nonsmoker Start:15-Oct-2017 Instruction Type:Provider Instructions for Treatment How to access health informa tion online Indication:BMI between 19-24,adult Start:28-May-2017 Instruction Type:Patient Education How to access health informa tion online - Detail Indication:BMI between 19-24,adult Start:28-May-2017 Instruction Type:Patient Education Patient Instructions Indication:BMI between 19-24,adult Start:28-May-2017 Instruction Type:Provider Instructions for Treatment How to access health informa tion online Indication:Sore throat Start:31-Oct-2016 Instruction Type:Patient Education How to access health informa tion online - Detail Indication:Sore throat Start:31-Oct-2016 Instruction Type:Patient Education Patient Instructions Indication:Sore throat Start:31-Oct-2016 Instruction Type:Provider Instructions for Treatment How to access health informa tion online Indication:Earache Start:14-Aug-2016 Instruction Type:Patient Education How to access health informa tion online - Detail Indication:Earache Start:14-Aug-2016 Instruction Type:Patient Education Patient Instructions Indication:Earache Start:14-Aug-2016 Instruction Type:Provider Instructions for Treatment How to access health informa tion online Indication:Shoulder impingement, left Start:08-May-2016 Instruction Type:Patient Education How to access health informa tion online - Detail Indication:Shoulder impingement, left Start:08-May-2016 Instruction Type:Patient Education Patient Instructions Indication:Shoulder impingement, left Start:08-May-2016 Instruction Type:Provider Instructions for Treatment How to access health informa tion online Indication:S/P hysterectomy Start:13-Jul-2015 Instruction Type:Patient Education How to access health informa tion online - Detail Indication:S/P hysterectomy Start:13-Jul-2015 Instruction Type:Patient Education Patient Instructions Indication:S/P hysterectomy Start:13-Jul-2015 Instruction Type:Provider Instructions for Treatment How to access health informa tion online Indication:Myalgia Start:31-May-2015 Instruction Type:Patient Education How to access health informa tion online - Detail Indication:Myalgia Start:31-May-2015 Instruction Type:Patient Education Patient Instructions Indication:Myalgia Start:31-May-2015 Instruction Type:Provider Instructions for Treatment How to access health informa tion online Indication:Hypothyroidism Start:17-May-2015 Instruction Type:Patient Education How to access health informa tion online - Detail Indication:Hypothyroidism Start:17-May-2015 Instruction Type:Patient Education Patient Instructions Indication:Hypothyroidism Start:17-May-2015 Instruction Type:Provider Instructions for Treatment Patient Instructions Indication:Hypothyroidism Start:25-Nov-2013 Instruction Type:Provider Instructions for Treatment Patient Instructions Indication:Calcium kidney stone Start:16-Feb-2012 Instruction Type:Provider Instructions for Treatment Name Dates Details How to access health informa tion online Indication:Nonsmoker Start:03-Mar-2019 Instruction Type:Patient Education How to access health informa tion online - Detail Indication:Nonsmoker Start:03-Mar-2019 Instruction Type:Patient Education Patient Instructions Indication:Upper respiratory infection, viral Start:03-Mar-2019 Instruction Type:Provider Instructions for Treatment How to access health informa tion online Indication:Tobacco abuse, in remission (Renamed from Tobacco dependence in remission) Start:21-Oct-2018 Instruction Type:Patient Education How to access health informa tion online - Detail Indication:Tobacco abuse, in remission (Renamed from Tobacco dependence in remission) Start:21-Oct-2018 Instruction Type:Patient Education Patient Instructions Indication:Tobacco abuse, in remission (Renamed from Tobacco dependence in remission) Start:21-Oct-2018 Instruction Type:Provider Instructions for Treatment How to access health informa tion online Indication:Anxiety Start:18-Sep-2018 Instruction Type:Patient Education How to access health informa tion online - Detail Indication:Anxiety Start:18-Sep-2018 Instruction Type:Patient Education Patient Instructions Indication:Anxiety Start:18-Sep-2018 Instruction Type:Provider Instructions for Treatment How to access health informa tion online Indication:Nonsmoker Start:05-Nov-2017 Instruction Type:Patient Education How to access health informa tion online - Detail Indication:Nonsmoker Start:05-Nov-2017 Instruction Type:Patient Education Patient Instructions Indication:Nonsmoker Start:05-Nov-2017 Instruction Type:Provider Instructions for Treatment How to access health informa tion online Indication:Tobacco abuse, in remission (Renamed from Tobacco dependence in remission) Start:22-Oct-2017 Instruction Type:Patient Education How to access health informa tion online - Detail Indication:Tobacco abuse, in remission (Renamed from Tobacco dependence in remission) Start:22-Oct-2017 Instruction Type:Patient Education Patient Instructions Indication:Tobacco abuse, in remission (Renamed from Tobacco dependence in remission) Start:22-Oct-2017 Instruction Type:Provider Instructions for Treatment How to access health informa tion online Indication:Nonsmoker Start:15-Oct-2017 Instruction Type:Patient Education How to access health informa tion online - Detail Indication:Nonsmoker Start:15-Oct-2017 Instruction Type:Patient Education Patient Instructions Indication:Nonsmoker Start:15-Oct-2017 Instruction Type:Provider Instructions for Treatment How to access health informa tion online Indication:BMI between 19-24,adult Start:28-May-2017 Instruction Type:Patient Education How to access health informa tion online - Detail Indication:BMI between 19-24,adult Start:28-May-2017 Instruction Type:Patient Education Patient Instructions Indication:BMI between 19-24,adult Start:28-May-2017 Instruction Type:Provider Instructions for Treatment How to access health informa tion online Indication:Sore throat Start:31-Oct-2016 Instruction Type:Patient Education How to access health informa tion online - Detail Indication:Sore throat Start:31-Oct-2016 Instruction Type:Patient Education Patient Instructions Indication:Sore throat Start:31-Oct-2016 Instruction Type:Provider Instructions for Treatment How to access health informa tion online Indication:Earache Start:14-Aug-2016 Instruction Type:Patient Education How to access health informa tion online - Detail Indication:Earache Start:14-Aug-2016 Instruction Type:Patient Education Patient Instructions Indication:Earache Start:14-Aug-2016 Instruction Type:Provider Instructions for Treatment How to access health informa tion online Indication:Shoulder impingement, left Start:08-May-2016 Instruction Type:Patient Education How to access health informa tion online - Detail Indication:Shoulder impingement, left Start:08-May-2016 Instruction Type:Patient Education Patient Instructions Indication:Shoulder impingement, left Start:08-May-2016 Instruction Type:Provider Instructions for Treatment How to access health informa tion online Indication:S/P hysterectomy Start:13-Jul-2015 Instruction Type:Patient Education How to access health informa tion online - Detail Indication:S/P hysterectomy Start:13-Jul-2015 Instruction Type:Patient Education Patient Instructions Indication:S/P hysterectomy Start:13-Jul-2015 Instruction Type:Provider Instructions for Treatment How to access health informa tion online Indication:Myalgia Start:31-May-2015 Instruction Type:Patient Education How to access health informa tion online - Detail Indication:Myalgia Start:31-May-2015 Instruction Type:Patient Education Patient Instructions Indication:Myalgia Start:31-May-2015 Instruction Type:Provider Instructions for Treatment How to access health informa tion online Indication:Hypothyroidism Start:17-May-2015 Instruction Type:Patient Education How to access health informa tion online - Detail Indication:Hypothyroidism Start:17-May-2015 Instruction Type:Patient Education Patient Instructions Indication:Hypothyroidism Start:17-May-2015 Instruction Type:Provider Instructions for Treatment Patient Instructions Indication:Hypothyroidism Start:25-Nov-2013 Instruction Type:Provider Instructions for Treatment Patient Instructions Indication:Calcium kidney stone Start:16-Feb-2012 Instruction Type:Provider Instructions for Treatment Name Dates Details How to access health informa tion online Indication:Nonsmoker Start:22-Apr-2020 Instruction Type:Patient Education How to access health informa tion online - Detail Indication:Nonsmoker Start:22-Apr-2020 Instruction Type:Patient Education Patient Instructions Indication:Nonsmoker Start:22-Apr-2020 Instruction Type:Provider Instructions for Treatment How to access health informa tion online Indication:Nonsmoker Start:03-Mar-2019 Instruction Type:Patient Education How to access health informa tion online - Detail Indication:Nonsmoker Start:03-Mar-2019 Instruction Type:Patient Education Patient Instructions Indication:Upper respiratory infection, viral Start:03-Mar-2019 Instruction Type:Provider Instructions for Treatment How to access health informa tion online Indication:Tobacco abuse, in remission (Renamed from Tobacco dependence in remission) Start:21-Oct-2018 Instruction Type:Patient Education How to access health informa tion online - Detail Indication:Tobacco abuse, in remission (Renamed from Tobacco dependence in remission) Start:21-Oct-2018 Instruction Type:Patient Education Patient Instructions Indication:Tobacco abuse, in remission (Renamed from Tobacco dependence in remission) Start:21-Oct-2018 Instruction Type:Provider Instructions for Treatment How to access health informa tion online Indication:Anxiety Start:18-Sep-2018 Instruction Type:Patient Education How to access health informa tion online - Detail Indication:Anxiety Start:18-Sep-2018 Instruction Type:Patient Education Patient Instructions Indication:Anxiety Start:18-Sep-2018 Instruction Type:Provider Instructions for Treatment How to access health informa tion online Indication:Nonsmoker Start:05-Nov-2017 Instruction Type:Patient Education How to access health informa tion online - Detail Indication:Nonsmoker Start:05-Nov-2017 Instruction Type:Patient Education Patient Instructions Indication:Nonsmoker Start:05-Nov-2017 Instruction Type:Provider Instructions for Treatment How to access health informa tion online Indication:Tobacco abuse, in remission (Renamed from Tobacco dependence in remission) Start:22-Oct-2017 Instruction Type:Patient Education How to access health informa tion online - Detail Indication:Tobacco abuse, in remission (Renamed from Tobacco dependence in remission) Start:22-Oct-2017 Instruction Type:Patient Education Patient Instructions Indication:Tobacco abuse, in remission (Renamed from Tobacco dependence in remission) Start:22-Oct-2017 Instruction Type:Provider Instructions for Treatment How to access health informa tion online Indication:Nonsmoker Start:15-Oct-2017 Instruction Type:Patient Education How to access health informa tion online - Detail Indication:Nonsmoker Start:15-Oct-2017 Instruction Type:Patient Education Patient Instructions Indication:Nonsmoker Start:15-Oct-2017 Instruction Type:Provider Instructions for Treatment How to access health informa tion online Indication:BMI between 19-24,adult Start:28-May-2017 Instruction Type:Patient Education How to access health informa tion online - Detail Indication:BMI between 19-24,adult Start:28-May-2017 Instruction Type:Patient Education Patient Instructions Indication:BMI between 19-24,adult Start:28-May-2017 Instruction Type:Provider Instructions for Treatment How to access health informa tion online Indication:Sore throat Start:31-Oct-2016 Instruction Type:Patient Education How to access health informa tion online - Detail Indication:Sore throat Start:31-Oct-2016 Instruction Type:Patient Education Patient Instructions Indication:Sore throat Start:31-Oct-2016 Instruction Type:Provider Instructions for Treatment How to access health informa tion online Indication:Earache Start:14-Aug-2016 Instruction Type:Patient Education How to access health informa tion online - Detail Indication:Earache Start:14-Aug-2016 Instruction Type:Patient Education Patient Instructions Indication:Earache Start:14-Aug-2016 Instruction Type:Provider Instructions for Treatment How to access health informa tion online Indication:Shoulder impingement, left Start:08-May-2016 Instruction Type:Patient Education How to access health informa tion online - Detail Indication:Shoulder impingement, left Start:08-May-2016 Instruction Type:Patient Education Patient Instructions Indication:Shoulder impingement, left Start:08-May-2016 Instruction Type:Provider Instructions for Treatment How to access health informa tion online Indication:S/P hysterectomy Start:13-Jul-2015 Instruction Type:Patient Education How to access health informa tion online - Detail Indication:S/P hysterectomy Start:13-Jul-2015 Instruction Type:Patient Education Patient Instructions Indication:S/P hysterectomy Start:13-Jul-2015 Instruction Type:Provider Instructions for Treatment How to access health informa tion online Indication:Myalgia Start:31-May-2015 Instruction Type:Patient Education How to access health informa tion online - Detail Indication:Myalgia Start:31-May-2015 Instruction Type:Patient Education Patient Instructions Indication:Myalgia Start:31-May-2015 Instruction Type:Provider Instructions for Treatment How to access health informa tion online Indication:Hypothyroidism Start:17-May-2015 Instruction Type:Patient Education How to access health informa tion online - Detail Indication:Hypothyroidism Start:17-May-2015 Instruction Type:Patient Education Patient Instructions Indication:Hypothyroidism Start:17-May-2015 Instruction Type:Provider Instructions for Treatment Patient Instructions Indication:Hypothyroidism Start:25-Nov-2013 Instruction Type:Provider Instructions for Treatment Patient Instructions Indication:Calcium kidney stone Start:16-Feb-2012 Instruction Type:Provider Instructions for Treatment Name Dates Details How to access health informa tion online Indication:Nonsmoker Start:22-Apr-2020 Instruction Type:Patient Education How to access health informa tion online - Detail Indication:Nonsmoker Start:22-Apr-2020 Instruction Type:Patient Education Patient Instructions Indication:Nonsmoker Start:22-Apr-2020 Instruction Type:Provider Instructions for Treatment How to access health informa tion online Indication:Nonsmoker Start:03-Mar-2019 Instruction Type:Patient Education How to access health informa tion online - Detail Indication:Nonsmoker Start:03-Mar-2019 Instruction Type:Patient Education Patient Instructions Indication:Upper respiratory infection, viral Start:03-Mar-2019 Instruction Type:Provider Instructions for Treatment How to access health informa tion online Indication:Tobacco abuse, in remission (Renamed from Tobacco dependence in remission) Start:21-Oct-2018 Instruction Type:Patient Education How to access health informa tion online - Detail Indication:Tobacco abuse, in remission (Renamed from Tobacco dependence in remission) Start:21-Oct-2018 Instruction Type:Patient Education Patient Instructions Indication:Tobacco abuse, in remission (Renamed from Tobacco dependence in remission) Start:21-Oct-2018 Instruction Type:Provider Instructions for Treatment How to access health informa tion online Indication:Anxiety Start:18-Sep-2018 Instruction Type:Patient Education How to access health informa tion online - Detail Indication:Anxiety Start:18-Sep-2018 Instruction Type:Patient Education Patient Instructions Indication:Anxiety Start:18-Sep-2018 Instruction Type:Provider Instructions for Treatment How to access health informa tion online Indication:Nonsmoker Start:05-Nov-2017 Instruction Type:Patient Education How to access health informa tion online - Detail Indication:Nonsmoker Start:05-Nov-2017 Instruction Type:Patient Education Patient Instructions Indication:Nonsmoker Start:05-Nov-2017 Instruction Type:Provider Instructions for Treatment How to access health informa tion online Indication:Tobacco abuse, in remission (Renamed from Tobacco dependence in remission) Start:22-Oct-2017 Instruction Type:Patient Education How to access health informa tion online - Detail Indication:Tobacco abuse, in remission (Renamed from Tobacco dependence in remission) Start:22-Oct-2017 Instruction Type:Patient Education Patient Instructions Indication:Tobacco abuse, in remission (Renamed from Tobacco dependence in remission) Start:22-Oct-2017 Instruction Type:Provider Instructions for Treatment How to access health informa tion online Indication:Nonsmoker Start:15-Oct-2017 Instruction Type:Patient Education How to access health informa tion online - Detail Indication:Nonsmoker Start:15-Oct-2017 Instruction Type:Patient Education Patient Instructions Indication:Nonsmoker Start:15-Oct-2017 Instruction Type:Provider Instructions for Treatment How to access health informa tion online Indication:BMI between 19-24,adult Start:28-May-2017 Instruction Type:Patient Education How to access health informa tion online - Detail Indication:BMI between 19-24,adult Start:28-May-2017 Instruction Type:Patient Education Patient Instructions Indication:BMI between 19-24,adult Start:28-May-2017 Instruction Type:Provider Instructions for Treatment How to access health informa tion online Indication:Sore throat Start:31-Oct-2016 Instruction Type:Patient Education How to access health informa tion online - Detail Indication:Sore throat Start:31-Oct-2016 Instruction Type:Patient Education Patient Instructions Indication:Sore throat Start:31-Oct-2016 Instruction Type:Provider Instructions for Treatment How to access health informa tion online Indication:Earache Start:14-Aug-2016 Instruction Type:Patient Education How to access health informa tion online - Detail Indication:Earache Start:14-Aug-2016 Instruction Type:Patient Education Patient Instructions Indication:Earache Start:14-Aug-2016 Instruction Type:Provider Instructions for Treatment How to access health informa tion online Indication:Shoulder impingement, left Start:08-May-2016 Instruction Type:Patient Education How to access health informa tion online - Detail Indication:Shoulder impingement, left Start:08-May-2016 Instruction Type:Patient Education Patient Instructions Indication:Shoulder impingement, left Start:08-May-2016 Instruction Type:Provider Instructions for Treatment How to access health informa tion online Indication:S/P hysterectomy Start:13-Jul-2015 Instruction Type:Patient Education How to access health informa tion online - Detail Indication:S/P hysterectomy Start:13-Jul-2015 Instruction Type:Patient Education Patient Instructions Indication:S/P hysterectomy Start:13-Jul-2015 Instruction Type:Provider Instructions for Treatment How to access health informa tion online Indication:Myalgia Start:31-May-2015 Instruction Type:Patient Education How to access health informa tion online - Detail Indication:Myalgia Start:31-May-2015 Instruction Type:Patient Education Patient Instructions Indication:Myalgia Start:31-May-2015 Instruction Type:Provider Instructions for Treatment How to access health informa tion online Indication:Hypothyroidism Start:17-May-2015 Instruction Type:Patient Education How to access health informa tion online - Detail Indication:Hypothyroidism Start:17-May-2015 Instruction Type:Patient Education Patient Instructions Indication:Hypothyroidism Start:17-May-2015 Instruction Type:Provider Instructions for Treatment Patient Instructions Indication:Hypothyroidism Start:25-Nov-2013 Instruction Type:Provider Instructions for Treatment Patient Instructions Indication:Calcium kidney stone Start:16-Feb-2012 Instruction Type:Provider Instructions for Treatment Name Dates Details Anxiety : How to access heal th information online Indication:Anxiety Anxiety : How to access heal th information online - Detail Indication:Anxiety Anxiety : Patient Instructio ns Indication:Anxiety Nonsmoker : How to access he alth information online Indication:Nonsmoker Nonsmoker : How to access he alth information online - Detail Indication:Nonsmoker Nonsmoker : Patient Instruct ions Indication:Nonsmoker Tobacco abuse, in remission (Renamed from Tobacco dependence in remission) : How to access health information online Indication:Tobacco abuse, in remission (Renamed from Tobacco dependence in remission) Tobacco abuse, in remission (Renamed from Tobacco dependence in remission) : How to access health information online - Detail Indication:Tobacco abuse, in remission (Renamed from Tobacco dependence in remission) Tobacco abuse, in remission (Renamed from Tobacco dependence in remission) : Patient Instructions Indication:Tobacco abuse, in remission (Renamed from Tobacco dependence in remission) BMI between 19-24,adult : Ho w to access health information online Indication:BMI between 19-24,adult BMI between 19-24,adult : Ho w to access health information online - Detail Indication:BMI between 19-24,adult BMI between 19-24,adult : Aakash vega Instructions Indication:BMI between 19-24,adult Sore throat : How to access health information online Indication:Sore throat Sore throat : How to access health information online - Detail Indication:Sore throat Sore throat : Patient Instru ctions Indication:Sore throat Earache : How to access heal th information online Indication:Earache Earache : How to access heal th information online - Detail Indication:Earache Earache : Patient Instructio ns Indication:Earache Shoulder impingement, left : How to access health information online Indication:Shoulder impingement, left Shoulder impingement, left : How to access health information online - Detail Indication:Shoulder impingement, left Shoulder impingement, left : Patient Instructions Indication:Shoulder impingement, left S/P hysterectomy : How to ac cess health information online Indication:S/P hysterectomy S/P hysterectomy : How to ac cess health information online - Detail Indication:S/P hysterectomy S/P hysterectomy : Patient I nstructions Indication:S/P hysterectomy Myalgia : How to access heal th information online Indication:Myalgia Myalgia : How to access heal th information online - Detail Indication:Myalgia Myalgia : Patient Instructio ns Indication:Myalgia Hypothyroidism : How to acce ss health information online Indication:Hypothyroidism Hypothyroidism : How to acce ss health information online - Detail Indication:Hypothyroidism Hypothyroidism : Patient Ins tructions Indication:Hypothyroidism Calcium kidney stone : Patie nt Instructions Indication:Calcium kidney stone Name Dates Details How to access health informa tion online Indication:Nonsmoker Start:03-Mar-2019 Instruction Type:Patient Education How to access health informa tion online - Detail Indication:Nonsmoker Start:03-Mar-2019 Instruction Type:Patient Education Patient Instructions Indication:Upper respiratory infection, viral Start:16-Sep-2019 Instruction Type:Provider Instructions for Treatment How to access health informa tion online Indication:Tobacco abuse, in remission (Renamed from Tobacco dependence in remission) Start:21-Oct-2018 Instruction Type:Patient Education How to access health informa tion online - Detail Indication:Tobacco abuse, in remission (Renamed from Tobacco dependence in remission) Start:21-Oct-2018 Instruction Type:Patient Education Patient Instructions Indication:Tobacco abuse, in remission (Renamed from Tobacco dependence in remission) Start:21-Oct-2018 Instruction Type:Provider Instructions for Treatment How to access health informa tion online Indication:Anxiety Start:18-Sep-2018 Instruction Type:Patient Education How to access health informa tion online - Detail Indication:Anxiety Start:18-Sep-2018 Instruction Type:Patient Education Patient Instructions Indication:Anxiety Start:18-Sep-2018 Instruction Type:Provider Instructions for Treatment How to access health informa tion online Indication:Nonsmoker Start:05-Nov-2017 Instruction Type:Patient Education How to access health informa tion online - Detail Indication:Nonsmoker Start:05-Nov-2017 Instruction Type:Patient Education Patient Instructions Indication:Nonsmoker Start:05-Nov-2017 Instruction Type:Provider Instructions for Treatment How to access health informa tion online Indication:Tobacco abuse, in remission (Renamed from Tobacco dependence in remission) Start:22-Oct-2017 Instruction Type:Patient Education How to access health informa tion online - Detail Indication:Tobacco abuse, in remission (Renamed from Tobacco dependence in remission) Start:22-Oct-2017 Instruction Type:Patient Education Patient Instructions Indication:Tobacco abuse, in remission (Renamed from Tobacco dependence in remission) Start:22-Oct-2017 Instruction Type:Provider Instructions for Treatment How to access health informa tion online Indication:Nonsmoker Start:15-Oct-2017 Instruction Type:Patient Education How to access health informa tion online - Detail Indication:Nonsmoker Start:15-Oct-2017 Instruction Type:Patient Education Patient Instructions Indication:Nonsmoker Start:15-Oct-2017 Instruction Type:Provider Instructions for Treatment How to access health informa tion online Indication:BMI between 19-24,adult Start:28-May-2017 Instruction Type:Patient Education How to access health informa tion online - Detail Indication:BMI between 19-24,adult Start:28-May-2017 Instruction Type:Patient Education Patient Instructions Indication:BMI between 19-24,adult Start:28-May-2017 Instruction Type:Provider Instructions for Treatment How to access health informa tion online Indication:Sore throat Start:31-Oct-2016 Instruction Type:Patient Education How to access health informa tion online - Detail Indication:Sore throat Start:31-Oct-2016 Instruction Type:Patient Education Patient Instructions Indication:Sore throat Start:31-Oct-2016 Instruction Type:Provider Instructions for Treatment How to access health informa tion online Indication:Earache Start:14-Aug-2016 Instruction Type:Patient Education How to access health informa tion online - Detail Indication:Earache Start:14-Aug-2016 Instruction Type:Patient Education Patient Instructions Indication:Earache Start:14-Aug-2016 Instruction Type:Provider Instructions for Treatment How to access health informa tion online Indication:Shoulder impingement, left Start:08-May-2016 Instruction Type:Patient Education How to access health informa tion online - Detail Indication:Shoulder impingement, left Start:08-May-2016 Instruction Type:Patient Education Patient Instructions Indication:Shoulder impingement, left Start:08-May-2016 Instruction Type:Provider Instructions for Treatment How to access health informa tion online Indication:S/P hysterectomy Start:13-Jul-2015 Instruction Type:Patient Education How to access health informa tion online - Detail Indication:S/P hysterectomy Start:13-Jul-2015 Instruction Type:Patient Education Patient Instructions Indication:S/P hysterectomy Start:13-Jul-2015 Instruction Type:Provider Instructions for Treatment How to access health informa tion online Indication:Myalgia Start:31-May-2015 Instruction Type:Patient Education How to access health informa tion online - Detail Indication:Myalgia Start:31-May-2015 Instruction Type:Patient Education Patient Instructions Indication:Myalgia Start:31-May-2015 Instruction Type:Provider Instructions for Treatment How to access health informa tion online Indication:Hypothyroidism Start:17-May-2015 Instruction Type:Patient Education How to access health informa tion online - Detail Indication:Hypothyroidism Start:17-May-2015 Instruction Type:Patient Education Patient Instructions Indication:Hypothyroidism Start:17-May-2015 Instruction Type:Provider Instructions for Treatment Patient Instructions Indication:Hypothyroidism Start:25-Nov-2013 Instruction Type:Provider Instructions for Treatment Patient Instructions Indication:Calcium kidney stone Start:16-Feb-2012 Instruction Type:Provider Instructions for Treatment Name Dates Details How to access health informa tion online Indication:Tobacco abuse, in remission (Renamed from Tobacco dependence in remission) Start:21-Oct-2018 Instruction Type:Patient Education How to access health informa tion online - Detail Indication:Tobacco abuse, in remission (Renamed from Tobacco dependence in remission) Start:21-Oct-2018 Instruction Type:Patient Education Patient Instructions Indication:Tobacco abuse, in remission (Renamed from Tobacco dependence in remission) Start:21-Oct-2018 Instruction Type:Provider Instructions for Treatment How to access health informa tion online Indication:Anxiety Start:18-Sep-2018 Instruction Type:Patient Education How to access health informa tion online - Detail Indication:Anxiety Start:18-Sep-2018 Instruction Type:Patient Education Patient Instructions Indication:Anxiety Start:18-Sep-2018 Instruction Type:Provider Instructions for Treatment How to access health informa tion online Indication:Nonsmoker Start:05-Nov-2017 Instruction Type:Patient Education How to access health informa tion online - Detail Indication:Nonsmoker Start:05-Nov-2017 Instruction Type:Patient Education Patient Instructions Indication:Nonsmoker Start:05-Nov-2017 Instruction Type:Provider Instructions for Treatment How to access health informa tion online Indication:Tobacco abuse, in remission (Renamed from Tobacco dependence in remission) Start:22-Oct-2017 Instruction Type:Patient Education How to access health informa tion online - Detail Indication:Tobacco abuse, in remission (Renamed from Tobacco dependence in remission) Start:22-Oct-2017 Instruction Type:Patient Education Patient Instructions Indication:Tobacco abuse, in remission (Renamed from Tobacco dependence in remission) Start:22-Oct-2017 Instruction Type:Provider Instructions for Treatment How to access health informa tion online Indication:Nonsmoker Start:15-Oct-2017 Instruction Type:Patient Education How to access health informa tion online - Detail Indication:Nonsmoker Start:15-Oct-2017 Instruction Type:Patient Education Patient Instructions Indication:Nonsmoker Start:15-Oct-2017 Instruction Type:Provider Instructions for Treatment How to access health informa tion online Indication:BMI between 19-24,adult Start:28-May-2017 Instruction Type:Patient Education How to access health informa tion online - Detail Indication:BMI between 19-24,adult Start:28-May-2017 Instruction Type:Patient Education Patient Instructions Indication:BMI between 19-24,adult Start:28-May-2017 Instruction Type:Provider Instructions for Treatment How to access health informa tion online Indication:Sore throat Start:31-Oct-2016 Instruction Type:Patient Education How to access health informa tion online - Detail Indication:Sore throat Start:31-Oct-2016 Instruction Type:Patient Education Patient Instructions Indication:Sore throat Start:31-Oct-2016 Instruction Type:Provider Instructions for Treatment How to access health informa tion online Indication:Earache Start:14-Aug-2016 Instruction Type:Patient Education How to access health informa tion online - Detail Indication:Earache Start:14-Aug-2016 Instruction Type:Patient Education Patient Instructions Indication:Earache Start:14-Aug-2016 Instruction Type:Provider Instructions for Treatment How to access health informa tion online Indication:Shoulder impingement, left Start:08-May-2016 Instruction Type:Patient Education How to access health informa tion online - Detail Indication:Shoulder impingement, left Start:08-May-2016 Instruction Type:Patient Education Patient Instructions Indication:Shoulder impingement, left Start:08-May-2016 Instruction Type:Provider Instructions for Treatment How to access health informa tion online Indication:S/P hysterectomy Start:13-Jul-2015 Instruction Type:Patient Education How to access health informa tion online - Detail Indication:S/P hysterectomy Start:13-Jul-2015 Instruction Type:Patient Education Patient Instructions Indication:S/P hysterectomy Start:13-Jul-2015 Instruction Type:Provider Instructions for Treatment How to access health informa tion online Indication:Myalgia Start:31-May-2015 Instruction Type:Patient Education How to access health informa tion online - Detail Indication:Myalgia Start:31-May-2015 Instruction Type:Patient Education Patient Instructions Indication:Myalgia Start:31-May-2015 Instruction Type:Provider Instructions for Treatment How to access health informa tion online Indication:Hypothyroidism Start:17-May-2015 Instruction Type:Patient Education How to access health informa tion online - Detail Indication:Hypothyroidism Start:17-May-2015 Instruction Type:Patient Education Patient Instructions Indication:Hypothyroidism Start:17-May-2015 Instruction Type:Provider Instructions for Treatment Patient Instructions Indication:Hypothyroidism Start:25-Nov-2013 Instruction Type:Provider Instructions for Treatment Patient Instructions Indication:Calcium kidney stone Start:16-Feb-2012 Instruction Type:Provider Instructions for Treatment Additional Source Comments INFORMATION SOURCE (unrecogn ized section and content) DATE CREATED AUTHOR AUTHOR'S MIGUEL BONEMERON 09/20/2018 Comprehensive In [facility] FOR RECORDS PERTAINING TO PATIENTS WHO ARE OR HAVE BEEN ENROLLED IN A CHEMICAL DEPENDENCY/SUBSTANCEABUSE PROGRAM, SOME INFORMATION MAY BE OMITTED. This clinical summary was aggregated from multiple sources. Caution should be exercised in using it in the provision of clinical care. This summary normalizes information from multiple sources, and as a consequence, information in this document may materially change the coding, format and clinical context of patient data. In addition, data may be omitted in some cases. CLINICAL DECISIONS SHOULD BE BASED ON THE PRIMARY CLINICAL RECORDS. [employer] provides no warranty or guarantee of the accuracy or completeness of information in this document.
[2023-06-28 12:47] LABS: Reflex Troponin-HS? (from REC) Y
[2023-06-28 13:22] LABS: Troponin-I HS 5 pg/mL (3.0-54.0)
== END 2023-06-28 14:55 | disposition home or self-care (01) ==
PROVIDERS: Emergency Provider Emergency Medicine; PCP Family Medicine; Visit Provider Emergency Medicine
DX: R07.89 Other chest pain (principal); E03.9 Hypothyroidism, unspecified; Z87.891 Personal history of nicotine dependence; I10 Essential (primary) hypertension; Z79.899 Other long term (current) drug therapy; Z90.710 Acquired absence of both cervix and uterus
CPT/HCPCS: 71045; 80048; 84484; 85025; 93005; 99284; A4216

== ENCOUNTER 2023-07-16 17:09 | Observation (INO) | payer MEDICARE, OTHER, SELFPAY ==
[2023-07-16] VITALS (8 sets, daily range): BP systolic 116–142; BP diastolic 59–78; PULSE 70–95; RESP 14–17; TEMP 37.1–37.2; O2SAT 93–100; BMI 25.2
[2023-07-16 17:24] LABS: Absolute Lymphocyte Count 0.97 X10^3/uL (0.83-4.51); Absolute Neutrophil Count 10.9 X10^3/uL (2.0-7.7); Basophil# 0.04 X10^3/uL; Basophil% 0.3 % (0-1); Eosinophil# 0.01 X10^3/uL; Eosinophils% 0.1 % (0-5); Hematocrit 36.9 % (37-47); Hemoglobin 12.5 g/dL (12.0-15.0); Lymphocyte # 0.97 X10^3/ul (0.83-4.51); Lymphocyte % 7.8 % (19-41); Mean Corp Hgb Conc 33.9 g/dL (32-36); Mean Corpuscular Hgb 31.8 pg (27.0-32.0); Mean Corpuscular Volume 93.9 fL (81-99); Mean Platelet Vol. 7.6 fl (6.2-12.0); Monocyte# 0.55 X10^3/uL; Monocyte% 4.4 % (0-10); NRBC Flagged by Analyzer 0 % (0-5); Neutrophil # 10.86 X10^3/uL (2.7-7.7); Neutrophil % 87.2 % (47-70); Platelet Count 403 K/mm3 (150-450); RBC Distribution Width CV 12.7 % (11.6-14.6); RBC Distribution Width SD 44.1 fl (35.1-43.9); Red Blood Count 3.93 M/mm3 (4.2-5.4); White Blood Count 12.5 K/mm3 (4.4-11.0)
[2023-07-16 17:46] LABS: AST(SGOT) 8 U/L (15-37); Alanine Aminotransfer ALT/SGPT 17 U/L (13-56); Albumin, Serum 3.6 g/dL (3.2-5.0); Alkaline Phosphatase 71 U/L (45-117); Anion Gap 6 (5-15); BUN 8 mg/dL (7-18); BUN/Creat Ratio 9.6 RATIO (10-20); Calcium,Total 9.2 mg/dL (8.5-10.1); Chloride 94 mmol/L (98-107); Creatinine, Serum 0.83 mg/dL (0.55-1.02); EST Glomerular Filtration Rate 73 mL/min (>60); Est Glom Filt Rate - Afr Amer 88 mL/min (>60); Estimated Creatinine Clearance 57.99 ml/min; Globulin 3.6 g/dL (2.2-4.2); Glucose 133 mg/dL (74-106); Protein, Total 7.2 g/dL (6.4-8.2); Sodium Level 128 mmol/L (136-145)
[2023-07-16 18:09] LABS: Bacteria 0 SEEN /hpf (None Seen); Mucous, Urine 0 SEEN /hpf (<or=2+); White Blood Cells 0 SEEN /hpf (0-5)
[2023-07-16 18:20] LABS: Color, Urine Yellow (Yellow); Glucose, Dipstick Normal (Normal); Ketone-Dipstick Negative (Negative); Leukocyte Esterase-Dipstick Negative /ul (Negative); Nitrite-Dipstick Negative (Negative); Occult Blood-Urine 50 /ul (Negative); Protein-Dipstick 15 mg/dl (Negative); Urine Bilirubin Dipstick Negative (Negative); Urine Clarity Cloudy (Clear); Urine Urobilinogen Normal (Normal)
[2023-07-16 18:36] LABS: Squamous Epithelial Cells - UA 0-5 SEEN /hpf (5-10)
[2023-07-16 18:37] LABS: Red Blood Cells-Urine 0-5 SEEN /hpf (0-5)
--- NOTE | 2023-07-16 18:54 | EX.ED.DYSGE1 ---
HPI <JONATHAN Olivo - Last Filed: 07/16/23 20:46> History of Present Illness Chief Complaint: Abd Pain Narrative Narrative: Patient is a 67-year-old female with history of hypertension, hypothyroidism who takes [id number] supplements who presents to the emergency department with complaints of right lower quadrant abdominal pain. Patient states he got out of bed today and noticed that her right lower quadrant was hurting. Patient states that she felt nauseous and had 1 episode of vomiting, 1 episode of diarrhea. The pain continued and she is here for evaluation. She states she has had a hysterectomy however no other abdominal procedures. She denies any sick contacts, recent biotic use. PFS <JONATHAN Olivo - Last Filed: 07/16/23 20:46> [facility] Medical History Chest pain Cystocele with uterine descensus Dysphagia Hypertension Hypothyroidism Hypothyroidism Incontinence in female Rectocele Vaginal vault prolapse after hysterectomy Home Medications calcium carbonate 600 mg calcium (1,500 mg) tablet 1,000 mg PO DAILY 06/24/15 [History Last Taken 03/05/19] cholecalciferol (vitamin D3) 25 mcg (1,000 unit) tablet (Vitamin D3) 50 mcg PO DAILY 06/24/15 [History Last Taken 03/05/19] levothyroxine 75 mcg tablet (Levoxyl) 75 mcg PO DAILY 06/24/15 [History Last Taken 03/06/19] multivitamin with folic acid 400 mcg tablet (Thera) 1 tab PO DAILY 06/24/15 [History Last Taken 03/05/19] biotin 10,000 mcg capsule 5,000 mcg PO DAILY 10/03/18 [History Last Taken 03/05/19] duloxetine 30 mg capsule,delayed release 30 mg PO DAILY 06/28/23 [History Last Taken Unknown] lisinopril 10 mg tablet 10 mg PO DAILY 06/28/23 [History Last Taken Unknown] meloxicam 15 mg tablet 15 mg PO DAILY 06/28/23 [History Last Taken Unknown] tramadol 50 mg tablet 50 mg PO QHS 06/28/23 [History Last Taken Unknown] vitamin K2 100 mcg capsule 100 mcg PO DAILY 07/13/23 [History Last Taken Unknown] Tumeric 500 mg PO DAILY 07/16/23 [History Last Taken Unknown] ferrous sulfate 325 mg (65 mg iron) tablet (iron) 325 mg PO DAILY 07/16/23 [History Last Taken Unknown] Allergy/AdvReac Type Severity Reaction Status Date / Time No Known Allergies Allergy Verified 06/28/23 10:05 Surgical History H/O: hysterectomy History of bladder surgery Hx of breast augmentation Hx of repair of rotator cuff Social History household members: spouse Smoking Status: Former smoker substance use type: does not use ROS <JONATHAN Olivo - Last Filed: 07/16/23 20:46> ROS ED ROS Narrative Constitutional: Negative for fever, chills, weight loss, weakness Eyes: Negative for vision loss, vision change, double vision ENT: Negative for any sore throat, ear pain, congestion Cardiovascular: Negative for any chest pain, tightness, palpitations Respiratory: Negative for any cough, sputum production, hemoptysis, dyspnea, dyspnea on exertion, orthopnea Gastrointestinal: Negative for any constipation, blood in stool, blood in vomit. Positive for abdominal pain, nausea, vomiting, diarrhea : Negative for any urinary frequency, dysuria, retention, blood in urine Muscle skeletal: Negative for any myalgias, arthralgias, neck pain, back pain Neurological: Negative for any headache, syncope, paresthesias, dizziness Skin: Negative for any rashes, lumps, itching, abrasions, lacerations Psychiatric: Negative for any depression, anxiety, stress, suicidal ideation, homicidal ideation Hematologic: Negative for any easy bruising, excessive bruising, easy bleeding Allergies: Negative for any eczema, hives, rash EXAM <JONATHAN Olivo - Last Filed: 07/16/23 20:46> Physical Exam Narrative Exam Narrative: Vital signs reviewed. HEET: Head normocephalic atraumatic, TMs clear bilaterally. Posterior pharynx is clear, moist mucous membranes. Nares clear bilaterally. Neck: Supple with no lymphadenopathy or tenderness. No signs of meningismus. Cardiac: Regular rate and rhythm no murmurs gallops or rubs, equal peripheral pulses bilaterally. Respiratory: Lungs clear to auscultation bilaterally. No chest tenderness. Abdomen: Soft, nondistended. No abdominal bruit or pulsatile masses. No hepatosplenomegaly. Patient diffuse tenderness to the right lower quadrant. Pain McBurney's point. This did go slight midline. No peritoneal signs, active bowel sounds in all quadrants. Extremities: No peripheral edema, no signs of gross trauma or deformity. Active full range of motion of all extremities. Neuro: Cranial nerves II through XII intact, no focal neurological deficits. Skin: Clean dry and intact with no rash, purpura, petechiae, vesicles or pustules. Backs/flank: No CVA tenderness, no midline spinal tenderness, no deformity. Psych: Normal mood and affect. No SI, HI or acute psychosis. Const Vital Signs: 07/16/23 17:10 07/16/23 21:08 07/16/23 21:08 Temperature 99.0 F Temperature Source Temporal Pulse Rate 93 79 79 Respiratory Rate 16 14 14 Blood Pressure 125/70 H 136/66 H 136/66 H Blood Pressure Mean 88 89 89 Blood Pressure Source Blood Pressure Position Blood Pressure Location Pulse Ox 99 93 93 Oxygen Delivery Method Room Air Room Air 07/16/23 21:12 Temperature Temperature Source Pulse Rate 79 Respiratory Rate 14 Blood Pressure 136/66 H Blood Pressure Mean 89 Blood Pressure Source Monitor Blood Pressure Position Sitting Blood Pressure Location Left Arm Pulse Ox 93 Oxygen Delivery Method Room Air <Dr. Maco Strickland DO - Last Filed: 07/17/23 00:41> Physical Exam Const Vital Signs: 07/16/23 17:10 07/16/23 21:08 07/16/23 21:08 Temperature 99.0 F Temperature Source Temporal Pulse Rate 93 79 79 Respiratory Rate 16 14 14 Blood Pressure 125/70 H 136/66 H 136/66 H Blood Pressure Mean 88 89 89 Blood Pressure Source Blood Pressure Position Blood Pressure Location Pulse Ox 99 93 93 Oxygen Delivery Method Room Air Room Air 07/16/23 21:12 Temperature Temperature Source Pulse Rate 79 Respiratory Rate 14 Blood Pressure 136/66 H Blood Pressure Mean 89 Blood Pressure Source Monitor Blood Pressure Position Sitting Blood Pressure Location Left Arm Pulse Ox 93 Oxygen Delivery Method Room Air [facility] <JONATHAN Olivo - Last Filed: 07/16/23 20:46> [facility] Lab Data Labs: Laboratory Results - last 24 hr 07/16/23 07/16/23 17:15 17:51 WBC 12.5 H RBC 3.93 L Hgb 12.5 Hct 36.9 L MCV 93.9 MCH 31.8 MCHC 33.9 RDW Std Deviation 44.1 H RDW Coeff of Tatiana 12.7 Plt Count 403 MPV 7.6 Immature Gran % (Auto) 0.200 Neut % (Auto) 87.2 H Lymph % (Auto) 7.8 L [place] % (Auto) 4.4 Eos % (Auto) 0.1 Baso % (Auto) 0.3 Absolute Neuts (auto) 10.9 H Absolute Lymphs (auto) 0.97 Nucleated RBC % 0 Sodium 128 L Potassium 4.0 Chloride 94 L Carbon Dioxide 28.0 Anion Gap 6 BUN 8 Creatinine 0.83 Estim Creat Clear Calc 57.99 Est GFR (MDRD) Af Amer 88 Est GFR (MDRD) Non-Af 73 BUN/Creatinine Ratio 9.6 L Glucose 133 H Calcium 9.2 Total Bilirubin 0.90 AST 8 L ALT 17 Alkaline Phosphatase 71 Total Protein 7.2 Albumin 3.6 Globulin 3.6 Albumin/Globulin Ratio 1.0 Urine Color Yellow Urine Clarity Cloudy Urine pH 7.0 Ur Specific [place] 1.010 Urine Protein 15 H Urine Glucose (UA) Normal Urine Ketones Negative Urine Occult Blood 50 H Urine Nitrite Negative Urine Bilirubin Negative Urine Urobilinogen Normal Ur Leukocyte Esterase Negative Urine RBC 0-5 SEEN Urine WBC 0 SEEN Ur Squamous Epith Cells 0-5 SEEN Urine Bacteria 0 SEEN Urine Mucus 0 SEEN Radiography Diagnostic Testing: Clinical Impression(s) from Imaging Studies Abdomen/Pelvis CT 07/16/23 19:22 IMPRESSION: Acute appendicitis. Electronically Signed: Tee Rhoades DO at 20:14 EST , Treatment and Re-Evaluation :: Patient appears generally well, patient appears nontoxic, vital signs are stable. Presenting to the emergency department with complaints of right lower quadrant abdominal pain since this morning. Differential diagnosis includes muscle strain, acute appendicitis, enteritis, gastroenteritis. Patient will receive full abdominal workup, CBC, chemistries, IV fluids. Patient will receive a CT scan of the abdomen pelvis with IV contrast. Patient will be given IV fluids IV Zofran and morphine. Patient be reevaluated. All radiologic examinations were read, reviewed by the emergency department attending. From these reads, a plan of care will be put in place. Patient's CBC shows a leukocytosis with white blood count 12.5, patient's chemistries showed hyponatremia with a sodium of 128, t this appears to be baseline. Glucose 133. Patient's urinalysis was negative for any infection. Patient CT scan of the abdomen pelvis shows acute appendicitis. We did reach out to surgery here who will see the patient. I spoke with the patient, patient was responding well to IV fluids, IV morphine, Zofran. Patient given IV Zosyn. I spoke with surgery, they will admit the patient. Patient stable for admission. <Dr. Maco Strickland, DO - Last Filed: 07/17/23 00:41> [facility] History & Record Review Discussion w/independent historian: Patient Lab Data Attestation: I reviewed the patient's lab results. Labs: Laboratory Results - last 24 hr 07/16/23 07/16/23 17:15 17:51 WBC 12.5 H RBC 3.93 L Hgb 12.5 Hct 36.9 L MCV 93.9 MCH 31.8 MCHC 33.9 RDW Std Deviation 44.1 H RDW Coeff of Tatiana 12.7 Plt Count 403 MPV 7.6 Immature Gran % (Auto) 0.200 Neut % (Auto) 87.2 H Lymph % (Auto) 7.8 L [place] % (Auto) 4.4 Eos % (Auto) 0.1 Baso % (Auto) 0.3 Absolute Neuts (auto) 10.9 H Absolute Lymphs (auto) 0.97 Nucleated RBC % 0 Sodium 128 L Potassium 4.0 Chloride 94 L Carbon Dioxide 28.0 Anion Gap 6 BUN 8 Creatinine 0.83 Estim Creat Clear Calc 57.99 Est GFR (MDRD) Af Amer 88 Est GFR (MDRD) Non-Af 73 BUN/Creatinine Ratio 9.6 L Glucose 133 H Calcium 9.2 Total Bilirubin 0.90 AST 8 L ALT 17 Alkaline Phosphatase 71 Total Protein 7.2 Albumin 3.6 Globulin 3.6 Albumin/Globulin Ratio 1.0 Urine Color Yellow Urine Clarity Cloudy Urine pH 7.0 Ur Specific [place] 1.010 Urine Protein 15 H Urine Glucose (UA) Normal Urine Ketones Negative Urine Occult Blood 50 H Urine Nitrite Negative Urine Bilirubin Negative Urine Urobilinogen Normal Ur Leukocyte Esterase Negative Urine RBC 0-5 SEEN Urine WBC 0 SEEN Ur Squamous Epith Cells 0-5 SEEN Urine Bacteria 0 SEEN Urine Mucus 0 SEEN Radiography Diagnostic Testing: Clinical Impression(s) from Imaging Studies Abdomen/Pelvis CT 07/16/23 19:22 IMPRESSION: Acute appendicitis. Electronically Signed: Tee Rhoades DO at 20:14 EST , Management Discussion w/another healthcare provider: [employer] (Dr. Paris (Surgery)) Treatment and Re-Evaluation :: Patient appears generally well, patient appears nontoxic, vital signs are stable. Presenting to the emergency department with complaints of right lower quadrant abdominal pain since this morning. Differential diagnosis includes muscle strain, acute appendicitis, enteritis, gastroenteritis. Patient will receive full abdominal workup, CBC, chemistries, IV fluids. Patient will receive a CT scan of the abdomen pelvis with IV contrast. Patient will be given IV fluids IV Zofran and morphine. Patient be reevaluated. All radiologic examinations were read, reviewed by the emergency department attending. From these reads, a plan of care will be put in place. Patient's CBC shows a leukocytosis with white blood count 12.5, patient's chemistries showed hyponatremia with a sodium of 128, t this appears to be baseline. Glucose 133. Patient's urinalysis was negative for any infection. Patient CT scan of the abdomen pelvis shows acute appendicitis. We did reach out to surgery here who will see the patient. I spoke with the patient, patient was responding well to IV fluids, IV morphine, Zofran. Patient given IV Zosyn. I spoke with surgery, they will admit the patient. Patient stable for admission. I have personally performed a face to face assessment of the patient and have reviewed the [facility] Note. I performed a substantive portion of the visit including all aspects of the following. My meredith findings include: History is patient woke with right lower quadrant pain today that is been constant all day. Worse with bending over. He was diagnosed with microscopic colitis last year took an unknown medicine which seem to last for about 6 weeks. States today she has had multiple episodes of diarrhea. She denies fever. Exam is tender to palpation in the right lower quadrant. Patient ANO x 4 neurovascular intact in no acute distress. Medical Decison Making slight elevation in white count. CT was read by radiology as acute appendicitis. I did review this with Dr. Paris directly. He came to the emergency room to evaluate the patient and plan is to go to the operating room for appendicitis. She will receive a dose of Zosyn. Discharge Plan Dx/Rx/DC Orders Clinical Impression: Abdominal pain, Acute appendicitis Disposition Disposition: Acute Care Hospital [facility] Discharge Date/Time: 07/16/23 21:43
[2023-07-16] MEDS: Morphine 4 MG/ML Syringe IV (18:56)
[2023-07-16] MEDS: 0.9% Normal Saline (1000mL) 1,000 ML 1000 ML IV (18:56)
[2023-07-16] MEDS: Ondansetron 4 MG/2 ML Vial IV (18:57)
--- OUTSIDE RECORDS SUMMARY | 2023-07-16 19:18 | XMS RPT_ITS | CCD ---
Author Name Unknown Address [address] [place] [address] Organization [facility] Care Team Providers Care Refinery Operator Assistant Name Role Phone Winnie Eid Attending Unavailable Katelynn Manzanares Referring Unavailable Winnie Eid Consulting Unavailable Winnie Eid Unavailable Keith Bower Unavailable [facility] OFFICE, Jorge Silva Unavailable Adele Jacobson Unavailable [facility] Unavailable Petrona Sherman Unavailable Unavailable Unavailable Unavailable Slarb, Prabha Unavailable Unavailable Petrona Price Unavailable Unavailable Gravius, Tomeka Unavailable Unavailable MIGUELITO Hernandez Unavailable Unavailable Winnie Eid DO Unavailable Keith Bower MD Unavailable [facility] OFFICE, Joreg Silva Unavailable Adele Jacobson Unavailable [facility] Unavailable 1( [phone] [facility] PHP SOFTWARE ENGINEER, Tomeka Unavailable Unavailable Slarb BILINGUAL ADMINISTRATIVE ASSISTANT, Prabha Unavailable Unavailable Unavailable Unavailable Jennifer Melara LPN Unavailable Unavailable RaginiGeri luque DOhleen Unavailable Medications Completed/Discontinued Medications Medication Drug Class(es) Dates Sig (Normalized) Sig (Original) acetaminophen 300 mg / codeine phosphate 30 mg oral tablet (20 sources) Opioid Agonist Start: 10-08-2007 End: 11-17-2008 take 1-2 tablets by mouth three times daily as needed TYLENOL/CODEINE #3, 300-30MG (Oral Tablet) 1-2 Tablet TID/PRN for 0 days Quantity: 20 {Tablet} Refills: 0 Ordered: 08-Oct-2007 aDvid CASTILLOMIGUELITO Start : 08-Oct-2007 End : 17-Nov-2008 [...] 11:39-0400 Body height 160.02 cm Tomeka Toledo [facility]; [facility] Work Phone: 11-21-2021 11:39-0400 Body mass index (BMI) [Ratio] 24.47 kg/m2 Tomeka Toledo [facility]; [facility] Work Phone: 11-21-2021 11:39-0400 Body surface area Derived from formula 1.65 m2 Tomeka Toledo [facility]; [facility] Work Phone: 11-21-2021 11:39-0400 Body temperature 97.3 [degF] Tomeka Toledo [facility] Comprehensiv e Internal Medicine; Comprehensive Internal [...] Medicine Start: 03-15-2020 Review Winnie Eid [facility] Internal Medicine Start: 03-03-2019 End: 03-03-2019 Office outpatient visit 15 minutes Winnie Eid [facility] Start: 10-21-2018 End: 10-21-2018 Office outpatient visit 10 minutes Winnie Eid [facility] Start: 09-18-2018 Patient encounter procedure Winnie Eid [facility] Internal Med Start: 09-18-2018 End: 09-18-2018 Office [...] Office outpatient visit 10 minutes Winnie Eid [facility] Internal Medicine Start: 08-14-2016 End: 08-14-2016 Office outpatient visit 15 minutes Winnie Hilton [facility] Start: 05-08-2016 End: 05-08-2016 Office outpatient visit 10 minutes Winnie Eid [facility] Internal Medicine Start: 03-30-2016 End: 03-30-2016 Office outpatient visit 15 minutes Winnie Eid [facility] Internal Medicine Start: 02-17-2016 End: 02-17-2016 Office outpatient visit 15 minutes Winnie Eid [facility] Internal Medicine Start: 07-13-2015 End: 07-13-2015 Office outpatient visit 25 minutes Winnie Eid [facility] Start: 06-21-2015 End: 06-21-2015 Office outpatient visit 15 minutes Winnie Eid [facility] Internal Medicine Start: 05-31-2015 End: 05-31-2015 Phone Encounter Winnie [facility] Start: 05-31-2015 End: 05-31-2015 Office outpatient visit 15 minutes Winnie Eid [facility] Internal Medicine Start: 05-17-2015 End: 05-17-2015 Patient encounter status Winnie Harrison DO Work Phone: [facility] Start: 05-17-2015 End: 05-17-2015 Periodic preventive med est patient 18-39 yrs Winnie Hilton [facility] Start: 05-17-2015 End: 05-17-2015 Preprocedural examination done Winnie Eid DO Work Phone: [facility] Internal Medicine Start: 09-14-2014 End: 09-14-2014 Office outpatient visit 15 minutes Winnie Hilton [facility] Start: 03-30-2014 End: 03-30-2014 Office outpatient visit 25 minutes Winnie Eid [facility] Start: 02-26-2014 End: 02-26-2014 Lab Order Winnie [facility] Start: 11-25-2013 End: 11-27-2013 Patient encounter procedure Winnie Hilton [facility] Start: 02-10-2013 End: 02-10-2013 Patient encounter procedure Winnie Eid [facility] Start: 01-20-2013 End: 01-20-2013 Patient encounter procedure Winnie Eid [facility] Start: 02-26-2012 End: 02-26-2012 Phone Encounter Winnie Ragini [facility] Start: 02-16-2012 End: 02-16-2012 Office outpatient visit 10 minutes Winnie Eid [facility] Start: 02-13-2012 End: 02-13-2012 Annotation/Addendum Winnie Raginiene [facility] Start: 02-13-2012 End: 02-13-2012 Office outpatient visit 15 minutes Winnie Eid [facility] Internal [facility] Start: 08-10-2011 End: 08-10-2011 Phone Encounter Winnie Harrison [facility] Start: 04-24-2011 End: 04-24-2011 Patient encounter procedure Winnie Eid [facility] Start: 03-10-2011 End: 03-10-2011 Patient encounter procedure Winnie Ragini [facility] Start: 03-09-2011 End: 03-09-2011 Phone Encounter Winnie Ragini [facility] Start: 02-22-2011 End: 02-22-2011 Phone Encounter Winnieraj Harrison [facility] Start: 10-31-2010 End: 10-31-2010 Office outpatient visit 25 minutes Winnie Eid [facility] Start: 09-27-2009 End: 09-27-2009 Office outpatient visit 15 minutes Winnie Eid [facility] Start: 08-31-2009 End: 08-31-2009 Office outpatient visit 10 minutes Winnie Eid [facility] Start: 11-17-2008 End: 11-17-2008 Patient encounter procedure Winnie Eid [facility] Start: 10-08-2007 End: 10-08-2007 Patient encounter procedure Winnie Eid [facility] Start: 08-26-2007 End: 08-26-2007 Patient encounter procedure Winnie Eid [facility] Start: 11-01-2006 End: 11-01-2006 Patient encounter procedure Winnie Eid [facility] Start: 10-18-2006 End: 10-18-2006 Patient encounter procedure Winnie Eid [facility] Start: 08-20-2006 End: 08-20-2006 Patient encounter procedure Winnie Eid [facility] Start: 08-17-2006 End: 08-17-2006 Historical Summary Winnie Eid [facility] Patient encounter status Tomeka Santoyo MA [facility]; [facility] Work Phone: Procedures Date Procedure Procedure Detail Performing Clinician Start: 09-27-2021 End: 09-27-2021 SCRN MAMM (CAD)W/AMY BILAT Comments: See Note; NOTES: [facility] Imaging Services [address] [place] [address] SCRN MAMM (CAD)W/AMY BILAT MR#: [id number] Acct: [id number] Name: KARLA FOURNIER Rep #: [id number] : 1955 F 66 From: Rocky plaza MD PCP: Dr. Winnie Eid, DO Status: [facility] Study: SCRN MAMM (CAD)W/AMY BILAT Date of Exam: 09/16 08/09 Exam# [id number] Ordering Dr: Devora Troncoso MD MAMMOGRAPHY - [...] delay biopsy of a clinically suspicious abnormality. [id number] Electronically Signed: Rocky Lunsford MD at 13:46 EDT , CC: Dr. Winnie Eid DO; Dr. Devora Sheehan MD Intermodal Truck Driver: Signed Winnie Eid DO Work Phone: Start: 08-09-2021 End: 08-09-2021 Bone Scan Whole Body Comments: See Note; NOTES: [facility] Imaging Services [address] [place] [address] Bone Scan Whole Body MR#: [id number] Acct: [id number] Name: KARLA FOURNIER Rep #: [id number] : 1955 F 65 From: Fabiano Verduzco PCP: Dr. Winnie Eid DO Status: REG CLI Study: Bone Scan Whole Body Date of Exam: 08/09/21 Exam# [id number] Ordering Dr: Tee Jalloh DO CLINICAL: 65-year-old [...] Tee Jalloh DO; Dr. Winnie Eid DO Intermodal Truck Driver: Signed Winnie Eid DO Work Phone: Start: 06-20-2021 End: 06-20-2021 HIP, UNI W/ Pelvis 2-3 Views Comments: See Note; NOTES: [facility] Imaging Services [address] [place] [address] HIP, UNI W/ Pelvis 2-3 Views MR#: [id number] Acct: [id number] Name: KARLA FOURNIER Rep #: [id number] : 1955 F 65 From: Rocky plaza MD PCP: Dr. Winnie Eid DO Status: REG CLI Study: HIP, UNI W/ Pelvis 2-3 Views Date of Exam: 09/06 Exam# [id number] Ordering Dr: Winnie Eid DO STUDY: X-RAY [...] support , CC: Dr. Winnie Eid DO Intermodal Truck Driver: Signed Winnie Eid DO Work Phone: Start: 06-09-2021 End: 06-09-2021 Emergency Department Summary Comments: See Note; NOTES: [facility] Medical Records Department [address] [place] [address] Emergency Department Summary 06/09/21 MR#: [id number] Acct: [id number] Name: KARLA FOURNIER Rep #: [id number] : 1955 65 From: Allan Reid MD PCP: Dr. Winnie Eid, Status:[facility] ER Location: ED HPI History of Present [...] any weakness, confusion, or other recent illness. [facility] Medical History Hypertension Hypothyroidism Incontinence in female [...] 74.8 H Lymph % (Auto) 14.4 L Brooke % (Auto) 8.5 Eos % (Auto) 1.3 [...] your Primary Care Provider. Call [facility] ([phone]) or report to the closest Emergency Room. Call 911 if necessary. 06/09/21 0373 <Electronically signed by Allan Reid MD> Cosigner Signature (if applicable): CC: Dr. Winnie Eid DO Signed Winnie Eid DO Work Phone: Start: 06-06-2021 End: 06-08-2021 Lumbar Spine 2 or 3 Views Comments: See Note; NOTES: [facility] Imaging Services [address] [place] [address] Lumbar Spine 2 or 3 Views MR#: [id number] Acct: [id number] Name: KARLA FOURNIER Rep #: [id number] : 1955 F 65 From: Aravind Toth DO PCP: Dr. Winnie Eid DO Status: REG CLI Study: Lumbar Spine 2 or 3 Views Date of Exam: Exam# [id number] Ordering Dr: Tita Vargas NP SOLE RUFFER-C STUDY: X-RAY - LUMBAR SPINE REASON FOR [...] CC: JONATHAN Vargas; Dr. Winnie Eid DO Intermodal Truck Driver: Signed Tita Vargas CNP Work Phone: Start: 05-11-2021 End: 05-11-2021 Emergency Department Summary Comments: See Note; NOTES: [facility] Medical Records Department [address] [place] [address] Emergency Department Summary 05/11/21 MR#: [id number] Acct: [id number] Name: KARLA FOURNIER Rep #: [id number] : 1955 65 From: Wan Valenzuela MD [...] nothing that they could do for her. [facility] Medical History Hypothyroidism Incontinence in female Incontinence [...] your Primary Care Provider. Call [facility] ([phone]) or report to the closest Emergency Room. Call 911 if necessary. 05/11/21 150 <Electronically signed by Wan Valenzuela MD> Cosigner Signature (if applicable): CC: Dr. Winnie Eid DO Signed Winnie Eid DO Work Phone: Start: 05-11-2021 End: 06-08-2021 Brain/Head without Contrast Comments: See Note; NOTES: [facility] Imaging Services [address] [place] [address] Brain/Head without Contrast MR#: [id number] Acct: [id number] Name: KARLA FOURNIER Rep #: [id number] : 1955 F 65 From: Jarek Cheng MD PCP: Dr. Winnie Eid DO Status: REG ER Study: Brain/Head without Contrast Date of Exam: 04/19 10/06 Exam# [id number] Ordering Dr: Wan Valenzuela MD STUDY: CT [...] Wan Valenzuela MD; Dr. Winnie Eid DO Intermodal Truck Driver: Signed Winnie Eid DO Work Phone: Start: 05-11-2021 End: 06-08-2021 Spine Cervical without Contras Comments: See Note; NOTES: [facility] Imaging Services [address] [place] [address] Spine Cervical without Contras MR#: [id number] Acct: [id number] Name: KARLA FOURNIER Rep #: [id number] : 1955 F 65 From: Jarek Cheng MD PCP: Dr. Winnie Eid DO Status: REG ER Study: Spine Cervical without Contras Date of Exam: 07/11/20 Exam# [id number] Ordering Dr: Wan Valenzuela MD STUDY: CT [...] Wan Valenzuela MD; Dr. Winnie Eid DO Intermodal Truck Driver: Signed Winnie Eid DO Work Phone: Start: 07-13-2020 End: 07-13-2020 Dexa Bone Density Study Comments: See Note; NOTES: [facility] Imaging Services [address] [place] [address] Dexa Bone Density Study MR#: [id number] Acct: [id number] Name: KARLA FOURNIER Rep #: [id number] : 1955 F 64 From: Rocky plaza MD PCP: Dr. 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 Winnie Eid DO Intermodal Truck Driver: Signed Winnie Eid DO Work Phone: Start: 07-13-2020 End: 07-13-2020 SCRN MAMM (CAD)W/AMY BILAT Comments: See Note; NOTES: [facility] Imaging Services [address] [place] [address] SCRN MAMM (CAD)W/AMY BILAT MR#: [id number] Acct: [id number] Name: KARLA FOURNIER Rep #: [id number] : 1955 F 64 From: Rocky plaza MD PCP: Dr. Winnie Eid DO Status: REG CLI Study: SCRN MAMM (CAD)W/AMY BILAT Date of Exam: 06/19 12/06 Exam# [id number] Ordering Dr: Winnie Eid DO MAMMOGRAPHY - [...] delay biopsy of a clinically suspicious abnormality. [id number] Electronically Signed: Rocky Lnusford MD at 11:28 EST , Service support , CC: Dr. Winnie Eid DO Intermodal Truck Driver: Signed Winnie Eid DO Work Phone: Start: 05-14-2020 End: 05-18-2020 12 Lead EKG Comments: See Note; NOTES: [facility] Cardiovascular Services [address] [place] [address] 12 Lead EKG 05/14/20 0942 MR#: [id number] Acct: [id number] Name: KARLA FOURNIER Rep #: [id number] : 1955 64 From: Serjio Thomas MD Attending Dr: Dr. Jamaal Moise DO Status: RE G CLI Ordering Dr: Jamaal Moise DO Date: 05/14/20 Location: [facility] Sex: F C Admitted: Test Reason : PREOP Blood Pressure : / mmHG Vent. Rate : 076 BPM Atrial Rate : 076 BPM P-R Int : 152 ms QRS Dur : 078 ms QT Int : 378 ms P-R-T Axes : 068 010 043 degrees QTc Int : 425 ms Normal sinus rhythm Normal ECG Confirmed by SERJIO THOMAS MD ([id number]), business editor ANAT AYALA ([id number]) on 05/18/2020 9:28:15 AM Referred By: Jamaal Moise Confirmed By:SERJIO THOMAS MD 05/18/20927 Date Serjio Thomas MD CC: Dr. Winnie Eid DO; Dr. Jamaal Moise DO Signed Winnie Eid DO Work Phone: Start: 07-07-2019 End: 07-09-2019 SCREEN MAMM (CAD) W/AMY BILAT Comments: See Note; NOTES: [facility] Imaging Services [address] [place] [address] SCREEN MAMM (CAD) W/AMY BILAT MR#: [id number] Acct: [id number] Name: KARLA FOURNIER Rep #: [id number] : 1955 F 63 From: Rocky Lunsford MD PCP: Winnie Eid DO Status: [facility] Study: SCREEN MAMM (CAD) W/AMY BILAT Date of Exam: 07/07/19 Exam# [id number] Ordering Dr: Devora Franco MD MAMMOGRAPHY - [...] delay biopsy of a clinically suspicious abnormality. [id number] Electronically Signed: Rocky Isatu, at 11:10 EST , Service support , CC: Winnie Eid DO; Devora Franco MD Intermodal Truck Driver: Signed Winnie Eid Start: 03-06-2019 End: 03-06-2019 Emergency Department Summary Comments: See Note; NOTES: [facility] Medical Records Department [address] [place] [address] Emergency Department Summary 03/06/19 1227 MR#: [id number] Acct: [id number] Name: KARLA FOURNIER Rep #: [id number] : 1955 63 From: Sharee Vegas DO [...] current syndrome] This note was generated with [employer] dictation software. It may contain incorrect words, [...] problems, contact your Primary Care Provider. Call [facility] ([phone]) or report to the closest Emergency Room. Call 911 if necessary. 03/06/19 1221 <Electronically signed by Remus Ungur DO> Date Sharee Vegas DO Cosigner Signature (If Indicated): Date CC: Winnie Singh Start: 03-06-2019 End: 03-06-2019 Chest 1 View (Portable) Comments: See Note; NOTES: [facility] Imaging Services [address] [facility] [address] Chest 1 View (Portable) MR#: [id number] Acct: [id number] Name: KARLA FOURNIER Rep #: [id number] : 1955 F 63 From: Rocky Lunsford MD PCP: Winnie Eid DO Status: PRE ER Study: Chest 1 View (Portable) Date of Exam: 03/06/19 Exam# [id number] Ordering Dr: ProviderMatthew. STUDY: X-RAY CHEST REASON [...] CC: ED PHYSICIAN PROVIDER; Winnie Eid DO Intermodal Truck Driver: Signed Winnie Eid Start: 10-14-2018 End: 10-14-2018 12 lead ECG Comments: See Note; NOTES: [facility] Cardiovascular Services [address] [place] [address] 12 Lead EKG 10/10/18 0739 MR#: [id number] Acct: [id number] Name: KARLA FOURNIER Rep #: [id number] : 1955 63 From: Bladimir Chaney MD Attending Dr: Tita Orozco MD Status: DEP [facility] Ordering Dr: Patrick Lara MD Date: 10/10/18 Location: [facility] Sex: F C Admitted: Test Reason : [...] LEUNG, BLADIMIR ([id number]), business editor ANAT AYALA ([id number]) on 10/14/2018 12:39:43 PM Referred By: Tita Orozco Confirmed By:BLADIMIR CHANEY MD 10/14/18 1239 Date Bladimir Chaney MD CC: Patrick Lara MD; Winnie Eid DO; MD Tita Orozco Signed Winnie Eid Start: 10-10-2018 End: 10-10-2018 Operative Report Comments: See Note; NOTES: [facility] Medical Records Department [address] [place] [address] Operative Report 10/10/18 1036 MR#: [id number] Acct: [id number] Name: KARLA FOURNIER Rep #: [id number] : 1955 63 From: Tita Orozco MD PCP: Winnie Eid DO Status: REG SD Y Location: [place] [address] Problem List (1) Vaginal vault prolapse after [...] cystoscopy. No bladder, urethral or rectal injury. crossbow maker: Trish - Sarah He Type of Anesthesia:: [...] sacrospinous ligaments bilaterally using the Capio needle lift driver. The vaginal epithelium overlying the midurethra [...] 10-10-2018 Discharge Instruction Comments: See Note; NOTES: [facility] Medical Records Department [address] [place] [address] Instructions for Home/Discharge Instructions 10/10/18 1034 MR#: [id number] Acct: [id number] Name: KARLA FOURNIER Rep #: [id number] : 1955 63 From: Tita Orozco MD PCP: Winnie Eid DO Status: REG [facility] Discharge Activity: Return to Normal Activity May [...] MAMM (CAD), BILAT Comments: See Note; NOTES: [facility] Imaging Services [address] [place] [address] SCREENING MAMM (CAD), BILAT MR#: [id number] Acct: [id number] Name: ANALIKARLA Jorge Rep #: [id number] : 1955 F 62 From: Rocky Lunsford MD PCP: Winnie Eid DO Status: [facility] Study: SCREENING MAMM (CAD), BILAT Date of Exam: 07/05/18 Exam# [id number] Ordering Dr: Antony Payne MD MAMMOGRAPHY - [...] delay biopsy of a clinically suspicious abnormality. [id number] Electronically Signed: Rocky Lunsford MD at 8:47 EST Tel [phone], Service support , CC: Antony Payne MD; Winnie Edi DO Intermodal Truck Driver: Signed Winnie iEd Start: 10-30-2017 End: 10-30-2017 Spine Thoracic (Routine) Comments: See Note; NOTES: [facility] Imaging Services [address] [place] [address] Spine Thoracic (Routine) MR#: [id number] Acct: [id number] Name: KARLA FOURNIER Rep #: [id number] : 1955 F 62 From: Tee Walters MD PCP: Winnie Eid DO Status: PRE CLI Study: Spine Thoracic (Routine) Date of Exam: 10/30/17 Exam# [id number] Ordering Dr: Winnie Eid DO STUDY: MRI [...] bulging of the discs at T9-T10 and Z50-63-92 without spinal stenosis. Normal visualized thoracic cord. [...] CC: Keith Bower MD; Winnie Eid DO Intermodal Truck Driver: Signed Winnie Eid Work Phone: Start: 10-16-2017 End: 10-16-2017 Chest PA and Lateral Comments: See Note; NOTES: [facility] Imaging Services [address] [place] [address] Chest PA and Lateral MR#: [id number] Acct: [id number] Name: KARLA FOURNIER Rep #: [id number] : 1955 F 62 From: Neil Box MD PCP: Winnie Eid DO Status: REG CLI Study: Chest PA and Lateral Date of Exam: 10/16/17 Exam# [id number] Ordering Dr: Winnie Eid DO STUDY: X-RAY [...] Service support , CC: Winnie Eid DO Intermodal Truck Driver: Signed Winnie Eid Work Phone: Start: 10-16-2017 End: 10-16-2017 Thoracic Spine 3 Views Comments: See Note; NOTES: [facility] Imaging Services [address] [place] [address] Thoracic Spine 3 Views MR#: [id number] Acct: [id number] Name: KARLA FOURNIER Rep #: [id number] : 1955 F 62 From: Neil Box MD PCP: Winnei Eid DO Status: REG CLI Study: Thoracic Spine 3 Views Date of Exam: 10/16/17 Exam# [id number] Ordering Dr: Winnie Eid DO STUDY: X-RAY [...] Service support , CC: Winnie Eid DO Intermodal Truck Driver: Signed Winnie Eid Work Phone: Start: 10-02-2017 End: 10-03-2017 Dexa Bone Density Study Comments: See Note; NOTES: [facility] Imaging Services [address] [place] [address] Dexa Bone Density Study MR#: [id number] Acct: [id number] Name: KARLA FOURNIER Rep #: [id number] : 1955 F 62 From: Rocky Lunsford MD PCP: Winnie Eid DO Status: [place] [facility] Study: Dexa Bone Density Study Date of Exam: 10/02/17 Exam# [id number] Ordering Dr: Antony Payne MD STUDY: DUAL [...] Rocky Lunsford MD at 8:18 EDT Tel [phone], Service support , CC: Antony Payne MD; Winnie Eid DO Intermodal Truck Driver: Signed Winnie Eid Start: 05-17-2017 End: 05-19-2017 SCREENING MAMM (CAD), BILAT Comments: See Note; NOTES: [facility] Imaging Services [address] [place] [address] SCREENING MAMM (CAD), BILAT MR#: [id number] Acct: [id number] Name: KARLA FOURNIER Rep #: [id number] : 1955 F 61 From: Rocky Lunsford MD PCP: Winnie Eid DO Status: REG CLI Study: SCREENING MAMM (CAD), BILAT Date of Exam: 05/17/17 Exam# [id number] Ordering Dr: Antony Payne MD MAMMOGRAPHY - [...] delay biopsy of a clinically suspicious abnormality. [id number] Electronically Signed: Rocky Lunsford MD at 9:00 EST Tel [phone], Service support , CC: Antony Payne MD; Winnie Eid DO Intermodal Truck Driver: Signed Winnie iEd Start: 08-10-2016 End: 08-10-2016 12 lead ECG Comments: See Note; NOTES: [facility] Cardiovascular Services [address] [place] [address] 12 Lead EKG 08/08/161655 MR#: [id number] Acct: [id number] Name: KARLA FOURNIER Rep #: [id number] : 1955 60 From: Maco Pinto MD Attending Dr: Jamaal Moise DO Status: REG I Ordering Dr: Jamaal Moise DO Date: 08/08/16 Location: [facility] Sex: F C Admitted: Test Reason : [...] DO Date Dictated: 08/08/161655 Date Transcribed: 08/08/161655 Intermodal Truck Driver: Signed Winnie Eid Start: 05-16-2016 End: 05-16-2016 PT D/C Summary (1) Comments: See Note; NOTES: [facility] Physical Therapy [facility] [address] [place] [address] Fax REHABILITATION SERVICES DISCHARGE SUMMARY MR#: [id number] Acct: [id number] Name: KARLA FOURNIER Rep #: [id number] : 1955 60 From: Cert. ALIREZA Jeffrey PT, OCS Referring Dr.: Winnie Eid DO Status: REG RCR Insurance: [facility] - PT D/C Summary It has been [...] please feel free to call me at [phone]. Thank you for the referral of this patient. Sincerely, Keith Goldstein PT, <Electronically signed by Keith Goldstein PT, Cert. ALIREZA, OCS> 05/16/16 0926 CC: Winnie Eid DO HANNAA Signed Winnie Eid Start: 03-31-2016 End: 03-31-2016 Inital Evaluation (1) - PT Comments: See Note; NOTES: [facility] Physical Therapy [facility] [address] [place], [place] [address] Fax REHABILITATION SERVICES INITIAL EVALUATION MR#: [id number] Acct: [id number] Name: KARLA FOURNIER Rep #: [id number] : 1955 60 From: Keith Goldstein PT, [...] shoulder blade ocassional sharp lateral deltoid. VOCATION: [employer]. SOCAIL: - Pain Left Scapula Pain [...] to be FAXED BACK to us at [phone] for Medicare purposes. Please let me know [...] Digital AND CAD Comments: See Note; NOTES: [facility] Imaging Services [address] [place] [address] Verdana 4d Bilat Scrn Digital AND CAD MR#: [id number] Acct: [id number] Name: KARLA FOURNIER Rep #: [id number] : 1955 F 60 From: Zara Brown MD PCP: Winnie Eid DO Status: REG CLI Study: Bilat Scrn Digital AND CAD Date of Exam: 03/30/16 Exam# [id number] Ordering Dr: [place], Marilyn SOLE RUFFER-C MAMMOGRAPHY - BILATERAL SCREENING REASON FOR EXAM: [...] delay biopsy of a clinically suspicious abnormality. [id number] Electronically Signed: Zara Brown MD at 16:48 EDT Tel , Service support [phone], CC: Marilyn York; Winnie Eid DO [employer]: Signed Winnie Eid Work Phone: Start: 03-30-2016 End: 03-30-2016 Shoulder min 2 Views Comments: See Note; NOTES: [facility] Imaging Services [facility] [address] [place] [address] Verdana 4d Shoulder min 2 Views MR#: [id number] Acct: [id number] Name: ANALIKARLA Rep #: [id number] : 1955 F 60 From: Hebert Rasmussen MD PCP: Winnie Eid DO Status: REG CLI Study: Shoulder min 2 Views Date of Exam: 03/30/16 Exam# [id number] Ordering Dr: Winnie Eid DO STUDY: X-RAY [...] FACR at 15:41 EDT , Service support [phone], CC: Winnie Eid DO [employer]: Signed Winnie Eid Work Phone: Start: 06-30-2015 End: 06-30-2015 Discharge Instruction Comments: See Note; NOTES: [facility] Medical Records Department [address] [place] [address] Instructions for Home/Discharge Instructions 06/30/15 0908 MR#: [id number] Acct: [id number] Name: KARLA FOURNIER Rep #: [id number] : 1955 59 From: Antony Payne MD PCP: Katelynn Manzanares MD Status: REG [facility] [place] Discharge Diet: No Restrictions Discharge Activity: May [...] [Multivitamin] 1 tablet PO DAILY 06/24/15 RX: Stuart-3 Fatty Acids/Fish Oil [Fish Oil 1,000 mg [...] 12 lead ECG Comments: See Note; NOTES: [facility] Cardiovascular Services [address] [place] [address] 12 Lead EKG 06/23/151644 MR#: [id number] Acct: [id number] Name: KARLA FOURNIER Rep #: [id number] : 1955 59 From: Maco Pinto MD Attending Dr: Antony Payne MD Status: PRE SDC Ordering Dr: Antony Payne MD Date: 06/23/15 Location: [facility] [place] Sex: F C Admitted: Test Reason : [...] MD Date Dictated: 06/23/151644 Date Transcribed: 06/23/151644 [employer]: Signed Winnie Eid Start: 06-23-2015 End: 06-23-2015 Chest PA and Lateral Comments: See Note; NOTES: [facility] Imaging Services [address] [place] [address] Verdana 4d Chest PA and Lateral MR#: [id number] Acct: [id number] Name: KARLA FOURNIER Rep #: [id number] : 1955 F 59 From: Norberto Abrams DO PCP: Katelynn Manzanares MD Status: PRE SDC Study: Chest PA and Lateral Date of Exam: 06/23/15 Exam# [id number] Ordering Dr: Antony Payne MD STUDY: X-RAY [...] Norberto Abrams DO at 17:03 EST Tel [phone], Service support [phone], RAD/Chest PA and Lateral IMPRESSION: Hyperinflated lungs without acute cardiopulmonary disease or interval change. Electronically Signed: Norberto Abrams DO at 17:03 EST Tel [phone], Service support [phone], CC: Katelynn Manzanares MD; Antony Payne MD [employer]: Signed Winnie Ragini Start: 06-23-2015 Antibody screen Winnie Eid Plan of Treatment Date Care Activity Detail Author Start: 11-21-2021 Procedure Education Eprescribed prescriptions (G8553) [facility]; [facility] Work Phone: Start: 11-21-2021 Provider Instructions for Treatment [facility]; [facility] Work Phone: Start: 11-21-2021 Urinalysis qual/semiquant except immunoassays URINALYSIS (09480) [facility]; [facility] Work Phone: Start: 11-21-2021 Urine albumin quantitative MICROALBUMIN: CREATININE RATIO (00489) AND (79847) [facility]; [facility] Work Phone: Start: 11-21-2021 Comprehensive metabolic panel METABOLIC PANEL, COMPREHENSIVE (11909) [facility]; [facility] Work Phone: Start: 11-21-2021 Lipid panel LIPID PANEL (77271) [facility]; [facility] Work Phone: Start: 11-21-2021 Blood count complete auto&auto difrntl wbc CBC W/AUTO DIFF WBC (31726) [facility]; [facility] Work Phone: Start: 11-21-2021 Assay of thyroid stimulating hormone tsh TSH (65743) [facility]; [facility] Work [...] 06-09-2021 Assay of osmolality urine OSMOLALITY URINE (48382) [facility]; [facility] Work Phone: Start: 06-09-2021 Assay of urine sodium SODIUM URINE (72591) [facility]; [facility] [...] Phone: Start: 04-22-2020 Lipid panel LIPID PANEL (57066) [facility] Work Phone: Start: 04-22-2020 TSH Qn TSH (47604) [facility] Work Phone: Start: 03-03-2019 Patient Education Common Cold *: upper respiratory infection [facility] Work Phone: Start: 03-03-2019 Procedure Education Eprescribed prescriptions (G8553) [facility] Work Phone: Start: 03-03-2019 Provider Instructions for Treatment Follow up if no improvement or if symptoms worsen [facility] Work Phone: Start: 03-03-2019 [employer] streptococcus group a Rapid Strep Test, Office (65504) [facility]; [facility] Work Phone: Payers Date Payer Category Payer Unknown [id number] 2015 Unknown [id number] 2014 Unknown [id number] 2006 Unknown [id number] 1955 Unknown [id number] Private Health Insurance [id number] Unknown Social History Date Type Detail Facility [...] AUTHOR AUTHOR'S MIGUEL BONEMERON 09/20/2018 [facility] FOR RECORDS PERTAINING TO PATIENTS WHO ARE [...] BE BASED ON THE PRIMARY CLINICAL RECORDS. [employer] provides no warranty or guarantee of the accuracy or completeness of information in this document.
--- NOTE | 2023-07-16 19:22 | CT_ITS ---
INDICATION: RLQ abdominal pain EXAMINATION: CT Abdomen And Pelvis W/ Contrast Injection TECHNIQUE: Helically acquired images were obtained of the abdomen and pelvis with sagittal and coronal reconstructed images. Individualized dose optimization techniques were used for this CT. IV contrast dosage and agent: 100 mL of Isovue-370. Oral contrast: None. COMPARISON: None. FINDINGS: VESSELS: No abdominal aortic aneurysm or dissection. LIVER: No evidence of a mass. No intrahepatic or extrahepatic biliary duct dilation. GALLBLADDER: No calcified stones. No evidence of cholecystitis. PANCREAS: No focal solid or cystic mass. No evidence of pancreatitis. SPLEEN: Normal. ADRENAL GLANDS: Normal. KIDNEYS AND URETERS: No urinary tract stone. No hydronephrosis. Hydroureter of the mid to distal right ureter with no hydronephrosis and no ureteral stone. No periureteral stranding. No significant asymmetric perinephric stranding. URINARY BLADDER: Unremarkable. BOWEL: Diverticulosis with no evidence of diverticulitis. The appendix is dilated measuring 1.0 cm in diameter with a fluid-filled lumen and enhancing bunch and mild periappendiceal fat stranding. No evidence of perforation. Small nonobstructing appendicoliths are present in the mid appendix. No evidence of bowel obstruction. REPRODUCTIVE ORGANS: No evidence of a pelvic mass. PERITONEUM: No intraabdominal free fluid or free air. LYMPH NODES: No pathologically enlarged mesenteric or retroperitoneal lymph nodes. ABDOMINAL WALL: No abdominal or pelvic wall hernia. BONES: No acute abnormality. Chronic appearing compression fracture of the T11 vertebral body. LOWER CHEST: Visualized lung bases are unremarkable. CT/Abdomen/Pelvis W IV Cont ONLY IMPRESSION: Acute appendicitis. Electronically Signed: Tee Rhoades DO at 20:14 EST ,
--- NOTE | 2023-07-16 20:52 | CON.PCM.SX_ITS ---
Assessment & Plan Assessment/Plan (1) Acute appendicitis: PLAN: Patient is a 67-year-old female who presents with approximately 12-hour h istory of acute onset right lower quadrant and infraumbilical abdominal pain that is been associated with nausea and diarrhea. The symptoms and her corresponding ER workup are consistent with a diagnosis of acute appendicitis as seen on CT imaging with that workup. In my independent review of patient's CT imaging I do identify a very fluid distended appendix with a moderate amount of fluid within her right colon as well. Based on this distention and her present discomfort I have recommended emergent laparoscopic appendectomy with possible need for partial cecectomy versus ileocecectomy. Patient states she does not need to discuss the details further and just wishes to be through with her discomfort. Consents will be obtained and the operating room team has been notified. Antibiotics have been dosed by emergency medicine. Postoperatively patient will be [facility] floor for ongoing recovery. HPI Consult Data Date of Consult: 07/16/23 HPI Narrative Reason for Consultation: Acute onset abdominal pain HPI Narrative: KIM BRIONES, is a 67 F who presents to [facility] with compla ints of right lower quadrant abdominal pain that began this morning. She states the pain has been located in the right lower quadrant and infraumbilical positions. She notes some associated nausea and diarrhea. She denies any prior experiences of this pain and has no sick contacts. Patient's ER workup is notable for mild leukocytosis at 12.[address] imaging of the abdomen pelvis shows a fluid distended appendix at 1 cm in diameter consistent with acute appendicitis. Patient reportedly has a history of microscopic colitis diagnosed by colonoscopy with Dr. Montanez approximately 6 weeks ago. She was treated for this issue and confirms that her present symptoms do not feel similar to that diagnosis. Patient has a history of bladder prolapse status post bladder suspension by Dr. Steen 2 to 3 years ago. She denies any other abdominal surgery. [facility] Medical History (Updated 07/16/23 @ 20:46 by JONATHAN Olivo) Chest pain Cystocele with uterine descensus Dysphagia Hypertension Hypothyroidism Hypothyroidism Incontinence in female Rectocele Vaginal vault prolapse after hysterectomy Home Medications calcium carbonate 600 mg calcium (1,500 mg) tablet 1,000 mg PO DAILY 06/24/15 [History Last Taken 03/05/19] cholecalciferol (vitamin D3) 25 mcg (1,000 unit) tablet (Vitamin D3) 50 mcg PO DAILY 06/24/15 [History Last Taken 03/05/19] levothyroxine 75 mcg tablet (Levoxyl) 75 mcg PO DAILY 06/24/15 [History Last Taken 03/06/19] multivitamin with folic acid 400 mcg tablet (Thera) 1 tab PO DAILY 06/24/15 [History Last Taken 03/05/19] biotin 10,000 mcg capsule 5,000 mcg PO DAILY 10/03/18 [History Last Taken 03/05/19] duloxetine 30 mg capsule,delayed release 30 mg PO DAILY 06/28/23 [History Last Taken Unknown] lisinopril 10 mg tablet 10 mg PO DAILY 06/28/23 [History Last Taken Unknown] meloxicam 15 mg tablet 15 mg PO DAILY 06/28/23 [History Last Taken Unknown] tramadol 50 mg tablet 50 mg PO QHS 06/28/23 [History Last Taken Unknown] vitamin K2 100 mcg capsule 100 mcg PO DAILY 07/13/23 [History Last Taken Unknown] Tumeric 500 mg PO DAILY 07/16/23 [History Last Taken Unknown] ferrous sulfate 325 mg (65 mg iron) tablet (iron) 325 mg PO DAILY 07/16/23 [History Last Taken Unknown] Allergy/AdvReac Type Severity Reaction Status Date / Time No Known Allergies Allergy Verified 06/28/23 10:05 Surgical History H/O: hysterectomy History of bladder surgery Hx of breast augmentation Hx of repair of rotator cuff Social History household members: spouse Smoking Status: Former smoker substance use type: does not use ROS Constitutional Constitutional: Reports anorexia Gastrointestinal Gastrointestinal: Reports abdominal pain, diarrhea and nausea Physical Exam Const alert and oriented x3 Constitutional Narrative: Patient appears in mild to moderate distress from abdominal discomfort General Appearance: cooperative Resp normal respiratory effort GI GI Narrative: Mildly distended soft, tender to palpation over McBurney's point with voluntary guarding. Negative Rovsing sign. Positive obturator sign. Negative psoas sign. Lab / Micro Data 07/16/23 17:15 07/16/23 17:15 Labs: Laboratory Results - last 24 hr 07/16/23 17:15: WBC 12.5 H, RBC 3.93 L, Hgb 12.5, Hct 36.9 L, MCV 93.9, MCH 31.8, MCHC 33.9, RDW Std Deviation 44.1 H, RDW Coeff of Tatiana 12.7, Plt Count 403, MPV 7.6, Immature Gran % (Auto) 0.200, Neut % (Auto) 87.2 H, Lymph % (Auto) 7.8 L, Cecil % (Auto) 4.4, Eos % (Auto) 0.1, Baso % (Auto) 0.3, Absolute Neuts (auto) 10.9 H, Absolute Lymphs (auto) 0.97, Nucleated RBC % 0, Sodium 128 L, Potassium 4.0, Chloride 94 L, Carbon Dioxide 28.0, Anion Gap 6, BUN 8, Creatinine 0.83, Estim Creat Clear Calc 57.99, Est GFR (MDRD) Af Amer 88, Est GFR (MDRD) Non-Af 73, BUN/Creatinine Ratio 9.6 L, Glucose 133 H, Calcium 9.2, Total Bilirubin 0.90, AST 8 L, ALT 17, Alkaline Phosphatase 71, Total Protein 7.2, Albumin 3.6, Globulin 3.6, Albumin/Globulin Ratio 1.0 07/16/23 17:51: Urine Color Yellow, Urine Clarity Cloudy, Urine pH 7.0, Ur Specific [place] 1.010, Urine Protein 15 H, Urine Glucose (UA) Normal, Urine Ketones Negative, Urine Occult Blood 50 H, Urine Nitrite Negative, Urine Bilirubin Negative, Urine Urobilinogen Normal, Ur Leukocyte Esterase Negative, Urine RBC 0-5 SEEN, Urine WBC 0 SEEN, Ur Squamous Epith Cells 0-5 SEEN, Urine Bacteria 0 SEEN, Urine Mucus 0 SEEN Imaging Radiology Impression Abdomen/Pelvis CT 07/16/23 19:22 IMPRESSION: Acute appendicitis. Electronically Signed: Tee Rhoades DO at 20:14 EST , Charges/Coding Visit Charges Inpatient E&M: 31886 Init Hosp L2
--- OUTSIDE RECORDS SUMMARY | 2023-07-16 21:04 | XMS RPT_ITS | CCD ---
Author Name Unknown Address [address] [place] [address] Organization [facility] Care Team Providers Care Hog Operator Name Role Phone Winnie Eid Attending Unavailable Katelynn Manzanares Referring Unavailable Winnie Eid Consulting Unavailable Winnie Eid Unavailable Keith Bower Unavailable [facility] OFFICE, Jorge Silva Unavailable Adele Jacobson Unavailable Physical [facility], [facility] Unavailable [phone] Petrona Sherman Unavailable Unavailable Unavailable Unavailable Slarb, Prabha Unavailable Unavailable Petrona Price Unavailable Unavailable Gravius, Tomeka Unavailable Unavailable MIGUELITO Hernandez Unavailable Unavailable Winnie Eid DO Unavailable [phone] Keith Bower MD Unavailable [phone] [facility] OFFICE, Jorge Silva Unavailable Adele Jacobson Unavailable [facility] Unavailable [facility]ius FOOD SCIENCE TECHNICIAN, Tomeka Unavailable Unavailable Slarb MANAGER CLINICAL RESEARCH, Prabha Unavailable Unavailable Unavailable Unavailable Jennifer Melara [...] 11:39-0400 Body height 160.02 cm Tomeka Toledo [facility]; [facility] Work Phone: 11-21-2021 11:39-0400 Body mass index (BMI) [Ratio] 24.47 kg/m2 Tomeka Toledo [facility]; [facility] Work Phone: 11-21-2021 11:39-0400 Body surface area Derived from formula 1.65 m2 Tomeka Toledo [facility]; [facility] Work Phone: 11-21-2021 11:39-0400 Body temperature 97.3 [degF] Tomeka Toledo [facility] Comprehensiv e Internal Medicine; [facility] Internal [...] Medicine Start: 03-15-2020 Review Winnie Eid Compreh [facility] Internal Medicine Start: 03-03-2019 End: 03-03-2019 Office outpatient visit 15 minutes Winnie Eid [facility] Start: 10-21-2018 End: 10-21-2018 Office outpatient visit 10 minutes Winnie Eid [facility] Start: 09-18-2018 Patient encounter procedure Winnie Eid [facility] Internal Med Start: 09-18-2018 End: 09-18-2018 [...] Office outpatient visit 10 minutes Winnie Eid [facility] Internal Medicine Start: 08-14-2016 End: 08-14-2016 Office outpatient visit 15 minutes Winnie Hilton Internal Medicine Start: 05-08-2016 End: 05-08-2016 Office outpatient visit 10 minutes Winnie Eid [facility] Internal Medicine Start: 03-30-2016 End: 03-30-2016 Office outpatient visit 15 minutes Winnie Eid [facility] Internal Medicine Start: 02-17-2016 End: 02-17-2016 Office outpatient visit 15 minutes Winnie Eid [facility] Internal Medicine Start: 07-13-2015 End: 07-13-2015 Office outpatient visit 25 minutes Winnie Eid [facility] Internal Medicine Start: 06-21-2015 End: 06-21-2015 Office outpatient visit 15 minutes Winnie Eid [facility] Internal Medicine Start: 05-31-2015 End: 05-31-2015 Phone Encounter Winnie Hilton [employer] Start: 05-31-2015 End: 05-31-2015 Office outpatient visit 15 minutes Winnie Eid [facility] Internal Medicine Start: 05-17-2015 End: 05-17-2015 Patient encounter status Winnie Harrison DO Work Phone: [facility] Start: 05-17-2015 End: 05-17-2015 Periodic preventive med est patient 18-39 yrs Winnie Hilton Internal Medicine Start: 05-17-2015 End: 05-17-2015 Preprocedural examination done Winnie Eid DO Work Phone: [facility] Internal Medicine Start: 09-14-2014 End: 09-14-2014 Office outpatient visit 15 minutes Winnie Hilton Internal [facility] Start: 03-30-2014 End: 03-30-2014 Office outpatient visit 25 minutes Winnie Eid [facility] Internal Medicine Start: 02-26-2014 End: 02-26-2014 Lab Order Winnie Hilton [employer] Start: 11-25-2013 End: 11-27-2013 Patient encounter procedure Winnie Hilton [facility] Start: 02-10-2013 End: 02-10-2013 Patient encounter procedure Winnie Eid [facility] Medicine Start: 01-20-2013 End: 01-20-2013 Patient encounter procedure Winnie Eid [facility] Medicine Start: 02-26-2012 End: 02-26-2012 Phone Encounter Winnie Ragini [facility] [employer] Medicine Start: 02-16-2012 End: 02-16-2012 Office outpatient visit 10 minutes Winnie Eid [facility] Internal Medicine Start: 02-13-2012 End: 02-13-2012 Annotation/Addendum Winnie Raginiene Hilton [employer] Start: 02-13-2012 End: 02-13-2012 Office outpatient visit 15 minutes Winnie Eid [facility] Internal Medicine Start: 08-10-2011 End: 08-10-2011 Phone Encounter Winnie Harrison [facility] [employer] Start: 04-24-2011 End: 04-24-2011 Patient encounter procedure Winnie Eid [facility] Internal Medicine Start: 03-10-2011 End: 03-10-2011 Patient encounter procedure Winine Ragini [facility] Internal Medicine Start: 03-09-2011 End: 03-09-2011 Phone Encounter Winnie Ragini [facility] [employer] Medicine Start: 02-22-2011 End: 02-22-2011 Phone Encounter Winnieraj Harrison [facility] [employer] [employer] Medicine Start: 10-31-2010 End: 10-31-2010 Office outpatient visit 25 minutes Winnie Eid [facility] Internal Medicine Start: 09-27-2009 End: 09-27-2009 Office outpatient visit 15 minutes Winnie Eid [facility] Internal Medicine Start: 08-31-2009 End: 08-31-2009 Office outpatient visit 10 minutes Winnie Eid [facility] Internal Medicine Start: 11-17-2008 End: 11-17-2008 Patient encounter procedure Winnie Eid [facility] Medicine Start: 10-08-2007 End: 10-08-2007 Patient encounter procedure Winnie Eid [facility] Internal Medicine Start: 08-26-2007 End: 08-26-2007 Patient encounter procedure Winnie Eid [facility] Medicine Start: 11-01-2006 End: 11-01-2006 Patient encounter procedure Winnie Eid [facility] Internal Medicine Start: 10-18-2006 End: 10-18-2006 Patient encounter procedure Winnie Eid [facility] Internal Medicine Start: 08-20-2006 End: 08-20-2006 Patient encounter procedure Winnie Eid [facility] Internal Medicine Start: 08-17-2006 End: 08-17-2006 Historical Summary Winnie Eid [facility] [employer] al Medicine Patient encounter status Tomeka Santoyo MA [facility]; [facility] Work Phone: Procedures Date Procedure Procedure Detail Performing Clinician Start: 09-27-2021 End: 09-27-2021 SCRN MAMM (CAD)W/AMY BILAT Comments: See Note; NOTES: [facility] Imaging Services [address] [place] [address] SCRN MAMM (CAD)W/AMY BILAT MR#: [id number] Acct: [id number] Name: KARLA FOURNIER Rep #: [id number] : 1955 F 66 From: Rocky plaza MD PCP: Dr. Winnie Eid, DO Status: [facility] Study: SCRN MAMM (CAD)W/AMY BILAT Date of Exam: 09/16 08/09 Exam# [id number] Ordering Dr: Devora Troncoso MD MAMMOGRAPHY - [...] delay biopsy of a clinically suspicious abnormality. [id number] Electronically Signed: Rocky Lunsford MD at 13:46 EDT , CC: Dr. Winnie Eid DO; Dr. Devora Sheehan MD Associate Field Service Engineer: Signed Winnie Eid DO Work Phone: Start: 08-09-2021 End: 08-09-2021 Bone Scan Whole Body Comments: See Note; NOTES: [facility] Imaging Services [address] [place] [address] Bone Scan Whole Body MR#: [id number] Acct: [id number] Name: KARLA FOURNIER Rep #: [id number] : 1955 F 65 From: Fabiano Verduzco PCP: Dr. Winnie Eid DO Status: REG CLI Study: Bone Scan Whole Body Date of Exam: 08/09/21 Exam# [id number] Ordering Dr: Tee Jalloh DO CLINICAL: 65-year-old [...] Tee Jalloh DO; Dr. Winnie Eid DO Associate Field Service Engineer: Signed Winnie Eid DO Work Phone: Start: 06-20-2021 End: 06-20-2021 HIP, UNI W/ Pelvis 2-3 Views Comments: See Note; NOTES: [facility] Imaging Services [address] [place] [address] HIP, UNI W/ Pelvis 2-3 Views MR#: [id number] Acct: [id number] Name: KARLA FOURNIER Rep #: [id number] : 1955 F 65 From: Rocky plaza MD PCP: Dr. Winnie Eid DO Status: REG CLI Study: HIP, UNI W/ Pelvis 2-3 Views Date of Exam: 09/06 Exam# [id number] Ordering Dr: Winnie Eid DO STUDY: X-RAY [...] support , CC: Dr. Winnie Eid DO Associate Field Service Engineer: Signed Winnie Eid DO Work Phone: Start: 06-09-2021 End: 06-09-2021 Emergency Department Summary Comments: See Note; NOTES: [facility] Medical Records Department [address] [place] [address] Emergency Department Summary 06/09/21 MR#: [id number] Acct: [id number] Name: KARLA FOURNIER Rep #: [id number] : 1955 65 From: Allan Reid MD PCP: Dr. Winnie Eid, Status:[facility] ER Location: ED HPI History of Present [...] any weakness, confusion, or other recent illness. [facility] Medical History Hypertension Hypothyroidism Incontinence in female [...] 74.8 H Lymph % (Auto) 14.4 L [place] % (Auto) 8.5 Eos % (Auto) 1.3 [...] your Primary Care Provider. Call [facility] ([phone]) or report to the closest Emergency Room. Call 911 if necessary. 06/09/21 5601 <Electronically signed by Allan Reid MD> Cosigner Signature (if applicable): CC: Dr. Winnie Eid DO Signed Winnie Eid DO Work Phone: Start: 06-06-2021 End: 06-08-2021 Lumbar Spine 2 or 3 Views Comments: See Note; NOTES: [facility] Imaging Services [address] [place] [address] Lumbar Spine 2 or 3 Views MR#: [id number] Acct: [id number] Name: KARLA FOURNIER Rep #: [id number] : 1955 F 65 From: Aravind Toth DO PCP: Dr. Winnie Eid DO Status: REG CLI Study: Lumbar Spine 2 or 3 Views Date of Exam: Exam# [id number] Ordering Dr: Tita Vargas NP [employer] STUDY: X-RAY - LUMBAR SPINE REASON FOR [...] CC: JONATHAN Vargas; Dr. Winnie Eid DO Associate Field Service Engineer: Signed Tita Vargas CNP Work Phone: Start: 05-11-2021 End: 05-11-2021 Emergency Department Summary Comments: See Note; NOTES: [facility] Medical Records Department [address] [place] [address] Emergency Department Summary 05/11/21 MR#: [id number] Acct: [id number] Name: KARLA FOURNIER Rep #: [id number] : 1955 65 From: Wan Valenzuela MD [...] nothing that they could do for her. [facility] Medical History Hypothyroidism Incontinence in female Incontinence [...] your Primary Care Provider. Call [facility] ([phone]) or report to the closest Emergency Room. Call 911 if necessary. 05/11/21 1501 <Electronically signed by Wan Valenzuela MD> Cosigner Signature (if applicable): CC: Dr. Winnie Eid DO Signed Winnie Eid DO Work Phone: Start: 05-11-2021 End: 06-08-2021 Brain/Head without Contrast Comments: See Note; NOTES: [facility] Imaging Services [address] [place] [address] Brain/Head without Contrast MR#: [id number] Acct: [id number] Name: KARLA FOURNIER Rep #: [id number] : 1955 F 65 From: Jarek Cheng MD PCP: Dr. Winnie Eid DO Status: REG ER Study: Brain/Head without Contrast Date of Exam: 04/19 10/06 Exam# [id number] Ordering Dr: Wan Valenzuela MD STUDY: CT [...] Wan Valenzuela MD; Dr. Winnie Eid DO Associate Field Service Engineer: Signed Winnie Eid DO Work Phone: Start: 05-11-2021 End: 06-08-2021 Spine Cervical without Contras Comments: See Note; NOTES: [facility] Imaging Services [address] [place] [address] Spine Cervical without Contras MR#: [id number] Acct: [id number] Name: KARLA FOURNIER Rep #: [id number] : 1955 F 65 From: Jarek Cheng MD PCP: Dr. Winnie Eid DO Status: REG ER Study: Spine Cervical without Contras Date of Exam: 07/11/20 Exam# [id number] Ordering Dr: Wan Valenzuela MD STUDY: CT [...] Wan Valenzuela MD; Dr. Winnie Eid DO Associate Field Service Engineer: Signed Winnie Eid DO Work Phone: Start: 07-13-2020 End: 07-13-2020 Dexa Bone Density Study Comments: See Note; NOTES: [facility] Imaging Services [address] [place] [address] Dexa Bone Density Study MR#: [id number] Acct: [id number] Name: KARLA FOURNIER Rep #: [id number] : 1955 F 64 From: Rocky plaza MD PCP: Dr. Winnie Eid DO Status: [facility] Study: Dexa Bone Density Study Date of Exam: 07/13/20 Exam# [id number] Ordering Dr: Winnie Eid DO STUDY: DUAL ENERGY X-RAY ABSORPTIOMETRY / DXA REASON FOR EXAM: Female, 64 years old. 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 Winnie Eid DO Associate Field Service Engineer: Signed Winnie Eid DO Work Phone: Start: 07-13-2020 End: 07-13-2020 SCRN MAMM (CAD)W/AMY BILAT Comments: See Note; NOTES: [facility] Imaging Services [address] [place] [address] SCRN MAMM (CAD)W/AMY BILAT MR#: [id number] Acct: [id number] Name: KARLA FOURNIER Rep #: [id number] : 1955 F 64 From: Rocky plaza MD PCP: Dr. Winnie Eid DO Status: REG CLI Study: SCRN MAMM (CAD)W/AMY BILAT Date of Exam: 06/19 12/06 Exam# [id number] Ordering Dr: Winnie Eid DO MAMMOGRAPHY - [...] delay biopsy of a clinically suspicious abnormality. [id number] Electronically Signed: Rocky Lunsford MD at 11:28 EST , Service support , CC: Dr. Winnie Eid DO Associate Field Service Engineer: Signed Winnie Eid DO Work Phone: Start: 05-14-2020 End: 05-18-2020 12 Lead EKG Comments: See Note; NOTES: [facility] Cardiovascular Services [address] [place] [address] 12 Lead EKG 05/14/20 0942 MR#: [id number] Acct: [id number] Name: KARLA FOURNIER Rep #: [id number] : 1955 64 From: Serjio Thomas MD Attending Dr: Dr. Jamaal Moise DO Status: RE G CLI Ordering Dr: Jamaal Moise DO Date: 05/14/20 Location: [facility] Sex: F C Admitted: Test Reason : PREOP Blood Pressure : / mmHG Vent. Rate : 076 BPM Atrial Rate : 076 BPM P-R Int : 152 ms QRS Dur : 078 ms QT Int : 378 ms P-R-T Axes : 068 010 043 degrees QTc Int : 425 ms Normal sinus rhythm Normal ECG Confirmed by SERJIO THOMAS MD ([id number]), production editor ANAT AYALA ([id number]) on 05/18/2020 9:28:15 AM Referred By: Jamaal Moise Confirmed By:SERJIO THOMAS MD 05/18/20927 Date Serjio Thomas MD CC: Dr. Winnie Eid DO; Dr. Jamaal Moise DO Signed Winnie Eid DO Work Phone: Start: 07-07-2019 End: 07-09-2019 SCREEN MAMM (CAD) W/AMY BILAT Comments: See Note; NOTES: [facility] Imaging Services [address] [place] [address] SCREEN MAMM (CAD) W/AMY BILAT MR#: [id number] Acct: [id number] Name: KARLA FOURNIER Rep #: [id number] : 1955 F 63 From: Rocky Lunsford MD PCP: Winnie Eid DO Status: [facility] Study: SCREEN MAMM (CAD) W/AMY BILAT Date of Exam: 07/07/19 Exam# [id number] Ordering Dr: Devora Franco MD MAMMOGRAPHY - [...] delay biopsy of a clinically suspicious abnormality. [id number] Electronically Signed: Rocky Isatu, at 11:10 EST , Service support , CC: Winnie Eid DO; Devora Franco MD Associate Field Service Engineer: Signed Winnie Eid Start: 03-06-2019 End: 03-06-2019 Emergency Department Summary Comments: See Note; NOTES: [facility] Medical Records Department [address] [place] [address] Emergency Department Summary 03/06/19 1227 MR#: [id number] Acct: [id number] Name: KARLA FOURNIER Rep #: [id number] : 1955 63 From: Sharee Vegas DO [...] current syndrome] This note was generated with Image [employer]ight dictation software. It may contain incorrect words, spelling, and punctuation that were not noted in review of the chart prior to signing ED Disposition - Plan for ED Patient: Referrals: Winnei Eid DO [Primary Care Provider] - What to do if you have Problems For any increased pain, shortness of breath, bleeding, nausea or vomiting, chest pain, or any unexpected problems, contact your Primary Care Provider. Call [facility] ([phone]) or report to the closest Emergency Room. Call 911 if necessary. 03/06/19 1222 <Electronically signed by Remus Ungur DO> Date Sharee Vegas DO Cosigner Signature (If Indicated): Date CC: Winnie Singh Start: 03-06-2019 End: 03-06-2019 Chest 1 View (Portable) Comments: See Note; NOTES: [facility] Imaging Services [address] [facility] [place] [address] Chest 1 View (Portable) MR#: [id number] Acct: [id number] Name: KARLA FOURNIER Rep #: [id number] : 1955 F 63 From: Rocky Lunsford MD PCP: Winnie Eid DO Status: PRE ER Study: Chest 1 View (Portable) Date of Exam: 03/06/19 Exam# [id number] Ordering Dr: ProviderMatthew. STUDY: X-RAY CHEST REASON [...] CC: ED PHYSICIAN PROVIDER; Winnie Eid DO Associate Field Service Engineer: Signed Winnie Eid Start: 10-14-2018 End: 10-14-2018 12 lead ECG Comments: See Note; NOTES: [facility] Cardiovascular Services [address] [place] [address] 12 Lead EKG 10/10/18 0739 MR#: [id number] Acct: [id number] Name: KARLA FOURNIER Rep #: [id number] : 1955 63 From: Bladimir Chaney MD Attending Dr: Tita Orozco MD Status: DEP [facility] Ordering Dr: Patrick Lara MD Date: 10/10/18 Location: [facility] Sex: F C Admitted: Test Reason : PRE OP Blood Pressure : / mmHG Vent. Rate : 060 BPM Atrial Rate : 060 BPM P-R Int : 152 ms QRS Dur : 082 ms QT Int : 410 ms P-R-T Axes : 079 027 050 degrees QTc Int : 410 ms Normal sinus rhythm Normal ECG Confirmed by SHIV LEUNG, BLADIMIR ([id number]), production editor ANAT AYALA ([id number]) on 10/14/2018 12:39:43 PM Referred By: Tita Orozco Confirmed By:BLADIMIR CHANEY MD 10/14/18 1239 Date Bladimir Chaney MD CC: Patrick Lara MD; Winnie Eid DO; MD Tita Orozco Signed Winnie Eid Start: 10-10-2018 End: 10-10-2018 Operative Report Comments: See Note; NOTES: [facility] Medical Records Department [address] [place] [address] Operative Report 10/10/18 1036 MR#: [id number] Acct: [id number] Name: KARLA FOURNIER Rep #: [id number] : 1955 63 From: Tita Orozoc MD PCP: Winnie Eid DO Status: REG SD Y Location: [place] [address] Problem List (1) Vaginal vault prolapse after [...] cystoscopy. No bladder, urethral or rectal injury. 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 The vaginal epithelium overlying the midurethra [...] 10-10-2018 Discharge Instruction Comments: See Note; NOTES: [facility] Medical Records Department [address] [place] [address] Instructions for Home/Discharge Instructions 10/10/18 1034 MR#: [id number] Acct: [id number] Name: KARLA FOURNIER Rep #: [id number] : 1955 63 From: Tita Orozco MD PCP: Winnie Eid DO Status: REG [facility] Discharge Activity: Return to Normal Activity May [...] MAMM (CAD), BILAT Comments: See Note; NOTES: [facility] Imaging Services [address] [place] [address] SCREENING MAMM (CAD), BILAT MR#: [id number] Acct: [id number] Name: ANALIKARLA Jorge Rep #: [id number] : 1955 F 62 From: Rocky Lunsford MD PCP: Winnie Eid DO Status: [facility] Study: SCREENING MAMM (CAD), BILAT Date of Exam: 07/05/18 Exam# [id number] Ordering Dr: Antony Payne MD MAMMOGRAPHY - [...] delay biopsy of a clinically suspicious abnormality. [id number] Electronically Signed: Rocky Lunsford MD at 8:47 EST Tel [phone], Service support , CC: Antony Payne MD; Winnie Eid DO Associate Field Service Engineer: Signed Winnie Eid Start: 10-30-2017 End: 10-30-2017 Spine Thoracic (Routine) Comments: See Note; NOTES: [facility] Imaging Services [address] [place] [address] Spine Thoracic (Routine) MR#: [id number] Acct: [id number] Name: KARLA FOURNIER Rep #: [id number] : 1955 F 62 From: Tee Walters MD PCP: Winnie Eid DO Status: PRE CLI Study: Spine Thoracic (Routine) Date of Exam: 10/30/17 Exam# [id number] Ordering Dr: Winnie Eid DO STUDY: MRI [...] bulging of the discs at T9-T10 and S95-59-44 without spinal stenosis. Normal visualized thoracic cord. [...] CC: Keith Bower MD; Winnie Eid DO Associate Field Service Engineer: Signed Winnie Eid Work Phone: Start: 10-16-2017 End: 10-16-2017 Chest PA and Lateral Comments: See Note; NOTES: [facility] Imaging Services [address] [place] [address] Chest PA and Lateral MR#: [id number] Acct: [id number] Name: KARLA FOURNIER Rep #: [id number] : 1955 F 62 From: Neil Box MD PCP: Winnie Eid DO Status: REG CLI Study: Chest PA and Lateral Date of Exam: 10/16/17 Exam# [id number] Ordering Dr: Winnie Eid DO STUDY: X-RAY [...] DEXA scan dated 10/02/2017. Electronically Signed: Neil oBx, at 16:28 EDT Tel , Service support , CC: Winnie Eid DO Associate Field Service Engineer: Signed Winnie Eid Work Phone: Start: 10-16-2017 End: 10-16-2017 Thoracic Spine 3 Views Comments: See Note; NOTES: [facility] Imaging Services [address] [place] [address] Thoracic Spine 3 Views MR#: [id number] Acct: [id number] Name: KARLA FOURNIER Rep #: [id number] : 1955 F 62 From: Neil Box MD PCP: Winnie Eid DO Status: REG CLI Study: Thoracic Spine 3 Views Date of Exam: 10/16/17 Exam# [id number] Ordering Dr: Winnie Eid DO STUDY: X-RAY [...] Service support , CC: Winnie Eid DO Associate Field Service Engineer: Signed Winnie Eid Work Phone: Start: 10-02-2017 End: 10-03-2017 Dexa Bone Density Study Comments: See Note; NOTES: [facility] Imaging Services [address] [place] [address] Dexa Bone Density Study MR#: [id number] Acct: [id number] Name: KARLA FOURNIER Rep #: [id number] : 1955 F 62 From: Rocky Lunsford MD PCP: Winnie Eid DO Status: [facility] Study: Dexa Bone Density Study Date of Exam: 10/02/17 Exam# [id number] Ordering Dr: Antony Payne MD STUDY: DUAL [...] Rocky Lunsford MD at 8:18 EDT Tel [phone], Service support , CC: Antony Payne MD; Winnie iEd DO Associate Field Service Engineer: Signed Winnie Eid Start: 05-17-2017 End: 05-19-2017 SCREENING MAMM (CAD), BILAT Comments: See Note; NOTES: [facility] Imaging Services [address] [place] [address] SCREENING MAMM (CAD), BILAT MR#: [id number] Acct: [id number] Name: KARLA FOURNIER Rep #: [id number] : 1955 F 61 From: Rocky Lunsford MD PCP: Winnie Eid DO Status: REG CLI Study: SCREENING MAMM (CAD), BILAT Date of Exam: 05/17/17 Exam# [id number] Ordering Dr: Antony Payne MD MAMMOGRAPHY - [...] delay biopsy of a clinically suspicious abnormality. [id number] Electronically Signed: Rocky Lunsford MD at 9:00 EST Tel [phone], Service support , CC: Antony Payne MD; Winnie Eid DO Associate Field Service Engineer: Signed Winnie Eid Start: 08-10-2016 End: 08-10-2016 12 lead ECG Comments: See Note; NOTES: [facility] Cardiovascular Services [address] [place] [address] 12 Lead EKG 08/08/161655 MR#: [id number] Acct: [id number] Name: KARLA FOURNIER Rep #: [id number] : 1955 60 From: Maco Pinto MD Attending Dr: Jamaal Moise DO Status: REG I Ordering Dr: Jamaal Moise DO Date: 08/08/16 Location: [facility] Sex: F C Admitted: Test Reason : PREOP Blood Pressure : / mmHG Vent. Rate : 059 BPM Atrial Rate : 059 BPM P-R Int : 172 ms QRS Dur : 084 ms QT Int : 412 ms P-R-T Axes : 076 042 057 degrees QTc Int : 407 ms Sinus bradycardia Otherwise normal ECG Confirmed by MACO PINTO ([id number]), production editor SMOOTH BRENNER ([id number]) on 08/10/2016 1:11:57 PM Referred By: TAHIRA Confirmed By:MACO PINTO 08/10/16 1312 Date Maco Pinto MD CC: Winnie Eid DO Date Dictated: 08/08/161655 Date Transcribed: 08/08/161655 Associate Field Service Engineer: Signed Winnie Eid Start: 05-16-2016 End: 05-16-2016 PT D/C Summary (1) Comments: See Note; NOTES: [facility] Physical [facility] [address] [place] [address] Fax REHABILITATION SERVICES DISCHARGE SUMMARY MR#: [id number] Acct: [id number] Name: KARLA FOURNIER Rep #: [id number] : 1955 60 From: Cert. ALIREZA Jeffrey PT, OCS Referring Dr.: Winnie Eid DO Status: REG RCR Insurance: [facility] - PT D/C Summary It has [...] please feel free to call me at [phone]. Thank you for the referral of this patient. Sincerely, Keith Goldstein PT, <Electronically signed by Keith Goldstein PT, Cert. ALIREZA, OCS> 05/16/16 0926 CC: Winnie Eid DO HANNAA Signed Winnie Eid Start: 03-31-2016 End: 03-31-2016 Inital Evaluation (1) - PT Comments: See Note; NOTES: [facility] [address] [place], [place] [address] Fax REHABILITATION SERVICES INITIAL EVALUATION MR#: [id number] Acct: [id number] Name: KARLA FOURNIER Rep #: [id number] : 1955 60 From: Keith Goldstein PT, [...] shoulder blade ocassional sharp lateral deltoid. 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 SOCAIL: - Pain Left Scapula Pain [...] to be FAXED BACK to us at [phone] for Medicare purposes. Please let me know [...] Digital AND CAD Comments: See Note; NOTES: [facility] Imaging Services [address] [place] [address] Verdana 4d Bilat Scrn Digital AND CAD MR#: [id number] Acct: [id number] Name: KARLA FOURNIER Rep #: [id number] : 1955 F 60 From: Zara Brown MD PCP: Winnie Eid DO Status: REG CLI Study: Bilat Scrn Digital AND CAD Date of Exam: 03/30/16 Exam# [id number] Ordering Dr: [place], Marilyn [employer]ER [employer]-C MAMMOGRAPHY - BILATERAL SCREENING REASON FOR EXAM: [...] delay biopsy of a clinically suspicious abnormality. [id number] Electronically Signed: Zara Brown MD at 16:48 EDT Tel , Service support [phone], CC: Marilyn York; Winnie Eid DO Associate Field Service Engineer: Signed Winnie Eid Work Phone: Start: 03-30-2016 End: 03-30-2016 Shoulder min 2 Views Comments: See Note; NOTES: [facility] Imaging Services [facility] [address] [place] [address] Verdana 4d Shoulder min 2 Views MR#: [id number] Acct: [id number] Name: ANALIKARLA Rep #: [id number] : 1955 F 60 From: Hebert Rasmussen MD PCP: Winnie Eid DO Status: REG CLI Study: Shoulder min 2 Views Date of Exam: 03/30/16 Exam# [id number] Ordering Dr: Winnie Eid DO STUDY: X-RAY [...] FACR at 15:41 EDT , Service support [phone], CC: Winnie Eid DO Associate Field Service Engineer: Signed Winnie Eid Work Phone: Start: 06-30-2015 End: 06-30-2015 Discharge Instruction Comments: See Note; NOTES: [facility] Medical Records Department [address] [place] [id number] Instructions for Home/Discharge Instructions 06/30/15 0908 MR#: [id number] Acct: [id number] Name: KARLA FOURNIER Rep #: [id number] : 1955 59 From: Antony Payne MD PCP: Katelynn Manzanares MD Status: REG [facility] [place] [facility] Discharge Diet: No Restrictions Discharge Activity: May [...] [Multivitamin] 1 tablet PO DAILY 06/24/15 RX: [place]-3 Fatty Acids/Fish Oil [Fish Oil 1,000 mg [...] 12 lead ECG Comments: See Note; NOTES: [facility] Cardiovascular Services [address] [place] [address] 12 Lead EKG 06/23/151644 MR#: [id number] Acct: [id number] Name: KARLA FOURNIER Rep #: [id number] : 1955 59 From: Maco Pinto MD Attending Dr: Antony Payne MD Status: PRE SDC Ordering Dr: Antony Payne MD Date: 06/23/15 Location: [facility] Sex: F C Admitted: Test Reason : PRE-OP Blood Pressure : / mmHG Vent. Rate : 060 BPM Atrial Rate : 060 BPM P-R Int : 162 ms QRS Dur : 088 ms QT Int : 412 ms P-R-T Axes : 079 077 070 degrees QTc Int : 412 ms Normal sinus rhythm Normal ECG Confirmed by MACO PINTO ([id number]), production editor SMOOTH BRENNER ([id number]) on 06/25/2015 1:57:03 PM Referred By: COREY Confirmed By:MACO PINTO 06/25/15 1357 Date Maco Pinto MD CC: Katelynn Manzanares MD Date Dictated: 06/23/151644 Date Transcribed: 06/23/151644 Associate Field Service Engineer: Signed Winnie Eid Start: 06-23-2015 End: 06-23-2015 Chest PA and Lateral Comments: See Note; NOTES: [facility] Imaging Services [address] [place] [address] Verdana 4d Chest PA and Lateral MR#: [id number] Acct: [id number] Name: KARLA FOURNIER Rep #: [id number] : 1955 F 59 From: Norberto Abrams DO PCP: Katelynn Manzanares MD Status: PRE SDC Study: Chest PA and Lateral Date of Exam: 06/23/15 Exam# [id number] Ordering Dr: Antony Payne MD STUDY: X-RAY [...] Norberto Abrams DO at 17:03 EST Tel [phone], Service support [phone], RAD/Chest PA and Lateral IMPRESSION: Hyperinflated lungs without acute cardiopulmonary disease or interval change. Electronically Signed: Norberto Abrams DO at 17:03 EST Tel [phone], Service support [phone], CC: Katelynn Manzanares MD; Antony Payne MD Associate Field Service Engineer: Signed Winnie Ragini Start: 06-23-2015 Antibody screen Winnie Eid Plan of Treatment Date Care Activity Detail Author Start: 11-21-2021 Procedure Education Eprescribed prescriptions (G8553) [facility]; [facility] Work Phone: Start: 11-21-2021 Provider Instructions for Treatment [facility]; [facility] Work Phone: Start: 11-21-2021 Urinalysis qual/semiquant except immunoassays URINALYSIS (95611) [facility]; [facility] Work Phone: Start: 11-21-2021 Urine albumin quantitative MICROALBUMIN: CREATININE RATIO (01269) AND (28517) [facility]; [facility] Work Phone: Start: 11-21-2021 Comprehensive metabolic panel METABOLIC PANEL, COMPREHENSIVE (25586) [facility]; [facility] Work Phone: Start: 11-21-2021 Lipid panel LIPID PANEL (12722) [facility]; [facility] Work Phone: Start: 11-21-2021 Blood count complete auto&auto difrntl wbc CBC W/AUTO DIFF WBC (91138) [facility]; [facility] Work Phone: Start: 11-21-2021 Assay of thyroid stimulating hormone tsh TSH (09557) [facility]; [facility] Work [...] 06-09-2021 Assay of osmolality urine OSMOLALITY URINE (74931) [facility]; [facility] Work Phone: Start: 06-09-2021 Assay of urine sodium SODIUM URINE (00176) [facility]; [facility] [...] Phone: Start: 04-22-2020 Lipid panel LIPID PANEL (35094) [facility] Work Phone: Start: 04-22-2020 TSH Qn TSH (27487) [facility] Work Phone: Start: 03-03-2019 Patient Education Common Cold *: upper respiratory infection [facility] Work Phone: Start: 03-03-2019 Procedure Education Eprescribed prescriptions (G8553) [facility] Work Phone: Start: 03-03-2019 Provider Instructions for Treatment Follow up if no improvement or if symptoms worsen [facility] Work Phone: Start: 03-03-2019 [employer] streptococcus group a Rapid Strep Test, Office (01363) [facility]; [facility] Work Phone: Payers Date Payer Category Payer Unknown [id number] 2015 Unknown [id number] 2014 Unknown [id number] 2006 Unknown [id number] 1955 Unknown [id number] Private Health Insurance [id number] Unknown Social History Date Type Detail Facility [...] AUTHOR AUTHOR'S MIGUEL BONEMERON 09/20/2018 [facility] [place] FOR RECORDS PERTAINING TO PATIENTS WHO ARE [...] BE BASED ON THE PRIMARY CLINICAL RECORDS. [employer] provides no warranty or guarantee of the accuracy or completeness of information in this document.
[2023-07-16] MEDS: Piperacil/Tazobactam 3.375 GM in 0.9% Normal Saline (50mL MB+) 50 ML IV (22:02)
--- NOTE | 2023-07-16 22:05 | APP_PTH ---
PATHOLOGY RESULTS PATIENT: KIM BRIONES LOC: [facility] U#:[id number] AGE/SX: 67/F ROOM: IL317 RE07/16/[address]: Dr. Jamaal Paris MD : 1955 BED: 1 DIS: 07/17/2023 SPEC #: [id number] RECD: 07/17/23 12:04 STATUS: MARCELLO PRABHAMarybeth #: [id number] YOLANDA: 07/16/23 22:[address]: Jamaal Paris DEPT: SURGICAL PATHOLOGY RECD BY: Alejandrina Miranda ENTERED: 07/17/23 12:29 SP TYPE: APPENDIX OTHR DR: Trisha Brink DO Tissues: Appendix, NOS Procedures: Surgery Specimen Level III HEADER OPERATION: Laparoscopic appendectomy PRE-OP DIAGNOSIS: Acute appendicitis TISSUE SUBMITTED: Appendix MICROSCOPIC DIAGNOSIS Appendix, appendectomy: Acute appendicitis. Acute serositis. AM:estella 07/18/2023 MICROSCOPIC DESCRIPTION Slides are reviewed. GROSS DESCRIPTION Received in fixative is one container labeled with the patient's name and designated appendix. The specimen consists of an appendix measuring 6.5 cm in length and up to 1.0 cm in diameter. The attached periappendiceal adipose tissue measures up to 2.5 cm in width. The serosal surface is covered with castellano, purulent exudate. No obvious perforation is identified. The lumen is filled with castellano, purulent exudate. No fecalith is identified. Judicial Law Clerk sections are submitted in one cassette. / SJ:rg 07/17/2023 TC:2 CPT: 25501
[2023-07-16] MEDS: Bupivacaine Mpf 0.5% 30 ML VIAL (22:30)
--- NOTE | 2023-07-16 22:35 | PCM.OPRPT ---
Report of Operation Date of Procedure: 07/16/23 Pre-Operative Diagnosis: Acute appendicitis Post-Operative Diagnosis: Acute appendicitis with turbid peritoneal fluid Surgery/Procedure Performed:: Laparoscopic appendectomy Description of Surgical Findings:: ? Dilated, thin?walled right colon that is partially translucent demonstrating thin blue-green fluid content ? Dilated and injected terminal ileum ? Dilated and acutely?inflamed appendix with fibrinous exudate adherent. No obvious perforation evident. ? Turbid peritoneal fluid of the pelvis with a castellano color Surgeon: Jamaal Paris shelter advocate: Elissa Peres Type of Anesthesia: General/Supplemental Anesthesiologist: Bryn Baca Specimen's removed: Appendix Estimated Blood Loss (mL): 5 Description of Procedure: After appropriate identification in the preoperative holding area, the patient was brought to the operating room and placed supine on the operating room table. Antibiotics were administered by anesthesia. Patient was then induced with general endotracheal anesthetic. The abdomen was prepped and draped in usual sterile fashion. Formal timeout was conducted to confirm both the patient and the procedure. A supraumbilical incision was made and carried down to the level of the fascia which was sharply opened. After opening the peritoneum in like fashion a finger sweep was made to confirm position, and a balloon trocar was placed and pneumoperitoneum was established to 15 mmHg. Patient was positioned in Trendelenburg with the left side down. 2 additional 5 mm trocars were placed in the left lower quadrant and suprapubic positions. The peritoneum was inspected and there were no signs of inadvertent injury from this Zuñiga entry. However, the right colon was demonstrated fluid distention and appeared almost partially discolored by a blue-green fluid content within it. The appendix was not immediately visible but after displacing the injected/dilated terminal ileum it was visualized with significant distention and inflammation as well as a inherent bit of fibrinous exudate. Using blunt laparoscopic dissection, a window was made in the mesoappendix adjacent to the appendiceal base. The mesoappendix was divided with application of a laparoscopic harmonic. Then the base of the appendix was sealed and amputated with the use of an Endo DIMAS stapler. The appendix was placed in an Endo Catch bag. The staple line was inspected for hemostasis. After hemostasis was confirmed the appendix was removed from the umbilical port site. Turbid fluid in the pelvis was suctioned free of the peritoneum first and a Luken's trap for specimen and then was copiously irrigated to dilute for suctioning free. Pneumoperitoneum was then evacuated and the supraumbilical port site fascia was closed with #1 Vicryl in a [id number] fashion. The port sites were infiltrated with 17 mL local anesthetic. The skin of each port site was closed with 4-0 Monocryl in a subcuticular fashion. Steri-Strips and OpSite dressings were applied. Patient tolerated procedure well without any apparent complications. They were awoken from general anesthetic without issue and transferred to post anesthesia care unit for ongoing recovery. Complications None Admit VTE Documentation VTE Mechan Device Prophylaxis: SCD's Procedures Digestive 40xxx-49xxx: 37549 Laparoscopy appendectomy
[2023-07-16] MEDS: 0.9% Normal Saline (1000mL) 1,000 ML 125 ML IV (22:55)
--- OUTSIDE RECORDS SUMMARY | 2023-07-16 23:33 | XMS RPT_ITS | CCD ---
Author Name Unknown Address [address] [place] [address] Organization [facility] Care Team Providers Care Redrying Machine Operator Name Role Phone Winnie Eid Attending Unavailable Katelynn Manzanares Referring Unavailable Winnie Eid Consulting Unavailable Winnie Eid Unavailable Keith Bower Unavailable [facility] OFFICE, Jorge Silva Unavailable Adele Jacobson Unavailable [facility] Unavailable [phone] Petrona Sherman Unavailable Unavailable Unavailable Unavailable Slarb, Prabha Unavailable Unavailable Petrona Price Unavailable Unavailable Gravius, Tomeka Unavailable Unavailable MIGUELITO Hernandez Unavailable Unavailable Winnie Eid DO Unavailable Keith Bower MD Unavailable [facility] OFFICE, Jorge Silva Unavailable Adele Jacobson Unavailable [facility] Unavailable Gravius CATALYST IMPREGNATOR, Tomeka Unavailable Unavailable Slarb VENDING TECHNICIAN, Prabha Unavailable Unavailable Unavailable Unavailable Jennifer Melara [...] 11:39-0400 Body height 160.02 cm Tomeka Toledo [facility]; [facility] Work Phone: 11-21-2021 11:39-0400 Body mass index (BMI) [Ratio] 24.47 kg/m2 Tomeka Toledo [facility]; [facility] Work Phone: 11-21-2021 11:39-0400 Body surface area Derived from formula 1.65 m2 Tomeka Toledo [facility]; [facility] Work Phone: 11-21-2021 11:39-0400 Body temperature 97.3 [degF] Tomeka Toledo [facility] Comprehensiv e Internal Medicine; [facility] Internal [...] Medicine Start: 03-15-2020 Review [facility] Start: 03-03-2019 End: 03-03-2019 Office outpatient visit 15 minutes Winnie Eid [facility] Start: 10-21-2018 End: 10-21-2018 Office outpatient visit 10 minutes Winnie Eid [facility] Start: 09-18-2018 Patient encounter procedure Winnie Eid [facility] Internal Med Start: 09-18-2018 End: 09-18-2018 [...] Office outpatient visit 10 minutes Winnie Eid [facility] Internal Medicine Start: 08-14-2016 End: 08-14-2016 Office outpatient visit 15 minutes Winnie Hilton Internal Medicine Start: 05-08-2016 End: 05-08-2016 Office outpatient visit 10 minutes Winnie Eid [facility] Internal Medicine Start: 03-30-2016 End: 03-30-2016 Office outpatient visit 15 minutes Winnie Eid [facility] Internal Medicine Start: 02-17-2016 End: 02-17-2016 Office outpatient visit 15 minutes Winnie Eid [facility] Internal Medicine Start: 07-13-2015 End: 07-13-2015 Office outpatient visit 25 minutes Winnie Eid [facility] Internal Medicine Start: 06-21-2015 End: 06-21-2015 Office outpatient visit 15 minutes Winnie Eid [facility] Internal Medicine Start: 05-31-2015 End: 05-31-2015 Phone Encounter Winnie Hilton Electronic Scale Assembler And Tester al Medicine Start: 05-31-2015 End: 05-31-2015 Office outpatient visit 15 minutes Winnie Eid [facility] Internal Medicine Start: 05-17-2015 End: 05-17-2015 Patient encounter status Winnie Harrison DO Work Phone: [facility] Start: 05-17-2015 End: 05-17-2015 Periodic preventive med est patient 18-39 yrs Winnie Hilton Internal Medicine Start: 05-17-2015 End: 05-17-2015 Preprocedural examination done Winnie Eid DO Work Phone: [facility] Internal Medicine Start: 09-14-2014 End: 09-14-2014 Office outpatient visit 15 minutes Winnie Hilton Internal Medicine Start: 03-30-2014 End: 03-30-2014 Office outpatient visit 25 minutes Winnie Eid [facility] Internal Medicine Start: 02-26-2014 End: 02-26-2014 Lab Order Winnie Hilton Electronic Scale Assembler And Tester al Medicine Start: 11-25-2013 End: 11-27-2013 Patient encounter procedure Winnie Hilton Internal Medicine Start: 02-10-2013 End: 02-10-2013 Patient encounter procedure Winnie Eid [facility] Internal Medicine Start: 01-20-2013 End: 01-20-2013 Patient encounter procedure Winnie Eid [facility] Internal Medicine Start: 02-26-2012 End: 02-26-2012 Phone Encounter Winnie Ragini [facility] Electronic Scale Assembler And Tester al Medicine Start: 02-16-2012 End: 02-16-2012 Office outpatient visit 10 minutes Winnie Eid [facility] Internal Medicine Start: 02-13-2012 End: 02-13-2012 Annotation/Addendum Winnie Raginiene Hilton Electronic Scale Assembler And Tester al Medicine Start: 02-13-2012 End: 02-13-2012 Office outpatient visit 15 minutes Winnie Eid [facility] Internal Medicine Start: 08-10-2011 End: 08-10-2011 Phone Encounter Winnie Harrison [facility] Electronic Scale Assembler And Tester al Medicine Start: 04-24-2011 End: 04-24-2011 Patient encounter procedure Winnie Eid [facility] Internal Medicine Start: 03-10-2011 End: 03-10-2011 Patient encounter procedure Winnie Ragini [facility] Internal Medicine Start: 03-09-2011 End: 03-09-2011 Phone Encounter Winnie Ragini [facility] Electronic Scale Assembler And Tester al Medicine Start: 02-22-2011 End: 02-22-2011 Phone Encounter Winnieraj Harrison [facility] Electronic Scale Assembler And Tester al Medicine Start: 10-31-2010 End: 10-31-2010 Office outpatient visit 25 minutes Winnie Eid [facility] Internal Medicine Start: 09-27-2009 End: 09-27-2009 Office outpatient visit 15 minutes Winnie Eid [facility] Internal Medicine Start: 08-31-2009 End: 08-31-2009 Office outpatient visit 10 minutes Winnie Eid [facility] Internal Medicine Start: 11-17-2008 End: 11-17-2008 Patient encounter procedure Winnie Eid [facility] Internal Medicine Start: 10-08-2007 End: 10-08-2007 Patient encounter procedure Winnie Eid [facility] Internal Medicine Start: 08-26-2007 End: 08-26-2007 Patient encounter procedure Winnie Eid [facility] Internal Medicine Start: 11-01-2006 End: 11-01-2006 Patient encounter procedure Winnie Eid [facility] Internal Medicine Start: 10-18-2006 End: 10-18-2006 Patient encounter procedure Winnie Eid [facility] Internal Medicine Start: 08-20-2006 End: 08-20-2006 Patient encounter procedure Winnie Eid [facility] Internal Medicine Start: 08-17-2006 End: 08-17-2006 Historical Summary Winnie Eid [facility] Electronic Scale Assembler And Tester al Medicine Patient encounter status Tomeka Santoyo MA [facility]; [facility] Work Phone: Procedures Date Procedure Procedure Detail Performing Clinician Start: 09-27-2021 End: 09-27-2021 SCRN MAMM (CAD)W/AMY BILAT Comments: See Note; NOTES: [facility] Imaging Services [address] [place] [address] SCRN MAMM (CAD)W/AMY BILAT MR#: [id number] Acct: [id number] Name: KARLA FOURNIER Rep #: [id number] : 1955 F 66 From: Rocky plaza MD PCP: Dr. Winnie Eid, DO Status: [facility] Study: SCRN MAMM (CAD)W/AMY BILAT Date of Exam: 09/16 08/09 Exam# [id number] Ordering Dr: Devora Troncoso MD MAMMOGRAPHY - [...] delay biopsy of a clinically suspicious abnormality. [id number] Electronically Signed: Rocky Lunsford MD at 13:46 EDT , CC: Dr. Winnie Eid DO; Dr. Devora Sheehan MD Sewer And Inspector: Signed Winnie Eid DO Work Phone: Start: 08-09-2021 End: 08-09-2021 Bone Scan Whole Body Comments: See Note; NOTES: [facility] Imaging Services [address] [place] [address] Bone Scan Whole Body MR#: [id number] Acct: [id number] Name: KARLA FOURNIER Rep #: [id number] : 1955 F 65 From: Fabiano Verduzco PCP: Dr. Winnie Eid DO Status: REG CLI Study: Bone Scan Whole Body Date of Exam: 08/09/21 Exam# [id number] Ordering Dr: Tee Jalloh DO CLINICAL: 65-year-old [...] Tee Jalloh DO; Dr. Winnie Eid DO Sewer And Inspector: Signed Winnie Eid DO Work Phone: Start: 06-20-2021 End: 06-20-2021 HIP, UNI W/ Pelvis 2-3 Views Comments: See Note; NOTES: [facility] Imaging Services [address] [place] [address] HIP, UNI W/ Pelvis 2-3 Views MR#: [id number] Acct: [id number] Name: KARLA FOURNIER Rep #: [id number] : 1955 F 65 From: Rocky plaza MD PCP: Dr. Winnie Eid DO Status: REG CLI Study: HIP, UNI W/ Pelvis 2-3 Views Date of Exam: 09/06 Exam# [id number] Ordering Dr: Winnie Eid DO STUDY: X-RAY [...] support , CC: Dr. Winnie Eid DO Sewer And Inspector: Signed Winnie Eid DO Work Phone: Start: 06-09-2021 End: 06-09-2021 Emergency Department Summary Comments: See Note; NOTES: [facility] Medical Records Department [address] [place] [address] Emergency Department Summary 06/09/21 MR#: [id number] Acct: [id number] Name: KARLA FOURNIER Rep #: [id number] : 1955 65 From: Allan Reid MD PCP: Dr. Winnie Eid, Status:[facility] ER Location: ED HPI History of [...] any weakness, confusion, or other recent illness. [facility] Medical History Hypertension Hypothyroidism Incontinence in [...] 74.8 H Lymph % (Auto) 14.4 L [place] % (Auto) 8.5 Eos % (Auto) 1.3 [...] your Primary Care Provider. Call [facility] ([phone]) or report to the closest Emergency Room. Call 911 if necessary. 06/09/21 8834 <Electronically signed by Allan Reid MD> Cosigner Signature (if applicable): CC: Dr. Winnie Eid DO Signed Winnie Eid DO Work Phone: Start: 06-06-2021 End: 06-08-2021 Lumbar Spine 2 or 3 Views Comments: See Note; NOTES: [facility] Imaging Services [address] [place] [address] Lumbar Spine 2 or 3 Views MR#: [id number] Acct: [id number] Name: KARLA FOURNIER Rep #: [id number] : 1955 F 65 From: Aravind Toth DO PCP: Dr. Winnie Eid DO Status: REG CLI Study: Lumbar Spine 2 or 3 Views Date of Exam: Exam# [id number] Ordering Dr: Tita Vargas NP TONGUE AND GROOVE MACHINE SETTER-C STUDY: X-RAY - LUMBAR SPINE REASON FOR [...] CC: JONATHAN Vargas; Dr. Winnie Eid DO Sewer And Inspector: Signed Tita Vargas CNP Work Phone: Start: 05-11-2021 End: 05-11-2021 Emergency Department Summary Comments: See Note; NOTES: [facility] Medical Records Department [address] [place] [address] Emergency Department Summary 05/11/21 MR#: [id number] Acct: [id number] Name: KARLA FOURNIER Rep #: [id number] : 1955 65 From: Wan Valenzuela MD [...] nothing that they could do for her. [facility] Medical History Hypothyroidism Incontinence in female [...] your Primary Care Provider. Call [facility] ([phone]) or report to the closest Emergency Room. Call 911 if necessary. 05/11/21 1505 <Electronically signed by Wan Valenzuela MD> Cosigner Signature (if applicable): CC: Dr. Winnie Eid DO Signed Winnie Eid DO Work Phone: Start: 05-11-2021 End: 06-08-2021 Brain/Head without Contrast Comments: See Note; NOTES: [facility] Imaging Services [address] [place] [address] Brain/Head without Contrast MR#: [id number] Acct: [id number] Name: KARLA FOURNIER Rep #: [id number] : 1955 F 65 From: Jarek Cheng MD PCP: Dr. Winnie Eid DO Status: REG ER Study: Brain/Head without Contrast Date of Exam: 04/19 10/06 Exam# [id number] Ordering Dr: Wan Valenzuela MD STUDY: CT [...] Wan Valenzuela MD; Dr. Winnie Eid DO Sewer And Inspector: Signed Winnie Eid DO Work Phone: Start: 05-11-2021 End: 06-08-2021 Spine Cervical without Contras Comments: See Note; NOTES: [facility] Imaging Services [address] [place] [address] Spine Cervical without Contras MR#: [id number] Acct: [id number] Name: KARLA FOURNIER Rep #: [id number] : 1955 F 65 From: Jarek Cheng MD PCP: Dr. Winnie Eid DO Status: REG ER Study: Spine Cervical without Contras Date of Exam: 07/11/20 Exam# [id number] Ordering Dr: Wan Valenzuela MD STUDY: CT [...] Wan Valenzuela MD; Dr. Winnie Eid DO Sewer And Inspector: Signed Winnie Eid DO Work Phone: Start: 07-13-2020 End: 07-13-2020 Dexa Bone Density Study Comments: See Note; NOTES: [facility] Imaging Services [address] [place] [address] Dexa Bone Density Study MR#: [id number] Acct: [id number] Name: KARLA FOURNIER Rep #: [id number] : 1955 F 64 From: Rocky plaza MD PCP: Dr. Winnie Eid DO Status: [facility] Study: Dexa Bone Density Study Date of Exam: 07/13/20 Exam# [id number] Ordering Dr: Winnie Eid DO STUDY: DUAL ENERGY X-RAY ABSORPTIOMETRY / DXA REASON FOR EXAM: Female, 64 years old. [employer]- EARLY AT 43 YRS OLD -- HX [...] support , CC: Dr. Winnie Eid DO Sewer And Inspector: Signed Winnie Eid DO Work Phone: Start: 07-13-2020 End: 07-13-2020 SCRN MAMM (CAD)W/AMY BILAT Comments: See Note; NOTES: [facility] Imaging Services [address] [place] [address] SCRN MAMM (CAD)W/AMY BILAT MR#: [id number] Acct: [id number] Name: KARLA FOURNIER Rep #: [id number] : 1955 F 64 From: Rocky plaza MD PCP: Dr. Winnie Eid DO Status: REG CLI Study: SCRN MAMM (CAD)W/AMY BILAT Date of Exam: 06/19 12/06 Exam# [id number] Ordering Dr: Winnie Eid DO MAMMOGRAPHY - [...] delay biopsy of a clinically suspicious abnormality. [id number] Electronically Signed: Rocky Lunsford MD at 11:28 EST , Service support , CC: Dr. Winnie Eid DO Sewer And Inspector: Signed Winnie Eid DO Work Phone: Start: 05-14-2020 End: 05-18-2020 12 Lead EKG Comments: See Note; NOTES: [facility] Cardiovascular Services [address] [place] [address] 12 Lead EKG 05/14/20 0942 MR#: [id number] Acct: [id number] Name: KARLA FOURNIER Rep #: [id number] : 1955 64 From: Serjio Thomas MD Attending Dr: Dr. Jamaal Moise DO Status: RE G CLI Ordering Dr: Jamaal Moise DO Date: 05/14/20 Location: [facility] Sex: F C Admitted: Test Reason : PREOP Blood Pressure : / mmHG Vent. Rate : 076 BPM Atrial Rate : 076 BPM P-R Int : 152 ms QRS Dur : 078 ms QT Int : 378 ms P-R-T Axes : 068 010 043 degrees QTc Int : 425 ms Normal sinus rhythm Normal ECG Confirmed by SERJIO THOMAS MD ([id number]), rewrite editor ANAT AYALA ([id number]) on 05/18/2020 9:28:15 AM Referred By: Jamaal Moise Confirmed By:SERJIO THOMAS MD 05/18/20927 Date Serjio Thomas MD CC: Dr. Winnie Eid DO; Dr. Jamaal Moise DO Signed Winnie Eid DO Work Phone: Start: 07-07-2019 End: 07-09-2019 SCREEN MAMM (CAD) W/AMY BILAT Comments: See Note; NOTES: [facility] Imaging Services [address] [place] [address] SCREEN MAMM (CAD) W/AMY BILAT MR#: [id number] Acct: [id number] Name: KARLA FOURNIER Rep #: [id number] : 1955 F 63 From: Rocky Lunsford MD PCP: Winnie Eid DO Status: [facility] Study: SCREEN MAMM (CAD) W/AMY BILAT Date of Exam: 07/07/19 Exam# [id number] Ordering Dr: Devora Franco MD MAMMOGRAPHY - [...] delay biopsy of a clinically suspicious abnormality. [id number] Electronically Signed: Rocky Isatu, at 11:10 EST , Service support , CC: Winnie Eid DO; Devora Franco MD Sewer And Inspector: Signed Winnie Eid Start: 03-06-2019 End: 03-06-2019 Emergency Department Summary Comments: See Note; NOTES: [facility] Medical Records Department [address] [place] [address] Emergency Department Summary 03/06/19 1227 MR#: [id number] Acct: [id number] Name: KARLA FOURNIER Rep #: [id number] : 1955 63 From: Sharee Vegas DO [...] current syndrome] This note was generated with [employer] dictation software. It may contain incorrect words, [...] problems, contact your Primary Care Provider. Call [employer] [facility] ([phone]) or report to the closest Emergency Room. Call 911 if necessary. 03/06/19 1224 <Electronically signed by Remus Ungur DO> Date Sharee Vegas DO Cosigner Signature (If Indicated): Date CC: Winnie Singh Start: 03-06-2019 End: 03-06-2019 Chest 1 View (Portable) Comments: See Note; NOTES: [facility] Imaging Services [address] [facility] [place] [address] Chest 1 View (Portable) MR#: [id number] Acct: [id number] Name: KARLA FOURNIER Rep #: [id number] : 1955 F 63 From: Rocky Lunsford MD PCP: Winnie Eid DO Status: PRE ER Study: Chest 1 View (Portable) Date of Exam: 03/06/19 Exam# [id number] Ordering Dr: ProviderMatthew. STUDY: X-RAY CHEST REASON [...] CC: ED PHYSICIAN PROVIDER; Winnie Eid DO Sewer And Inspector: Signed Winnie Eid Start: 10-14-2018 End: 10-14-2018 12 lead ECG Comments: See Note; NOTES: [facility] Cardiovascular Services [address] [place] [address] 12 Lead EKG 10/10/18 0739 MR#: [id number] Acct: [id number] Name: KARLA FOURNIER Rep #: [id number] : 1955 63 From: Bladimir Chaney MD Attending Dr: Tita Orozco MD [place] [facility] [place]: Patrick Lara MD Date: 10/10/18 [place] [facility] [place] Sex: F C Admitted: [...] ECG Confirmed by SHIV LEUNG, BLADIMIR ([id number]), rewrite editor ANAT AYALA ([id number]) on 10/14/2018 12:39:43 PM Referred By: Tita Orozco Confirmed By:BLADIMIR CHANEY MD 10/14/18 1239 Date Bladimir Chaney MD CC: Patrick Lara MD; Winnie Eid DO; MD Tita Orozco Signed Winnie Eid Start: 10-10-2018 End: 10-10-2018 Operative Report Comments: See Note; NOTES: [facility] Medical Records Department [address] [place] [address] Operative Report 10/10/18 1036 MR#: [id number] Acct: [id number] Name: KARLA FOURNIER Rep #: [id number] : 1955 63 From: Tita Orozco MD PCP: Winnie Eid DO Status: REG SD Y Location: [place] [address] Problem List (1) Vaginal vault prolapse after [...] cystoscopy. No bladder, urethral or rectal injury. 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 The vaginal epithelium overlying the midurethra [...] 10-10-2018 Discharge Instruction Comments: See Note; NOTES: [facility] Medical Records Department [address] [place] [address] Instructions for Home/Discharge Instructions 10/10/18 1034 MR#: [id number] Acct: [id number] Name: KARLA FOURNIER Rep #: [id number] : 1955 63 From: Tita Orozco MD PCP: Winnie Eid DO Status: REG [facility] [place] Activity: Return to [...] MAMM (CAD), BILAT Comments: See Note; NOTES: [facility] Imaging Services [address] [place] [address] SCREENING MAMM (CAD), BILAT MR#: [id number] Acct: [id number] Name: ANALIKARLA Jorge Rep #: [id number] : 1955 F 62 From: Rocky Lunsford MD PCP: Winnie Eid DO Status: [facility] Study: SCREENING MAMM (CAD), BILAT Date of Exam: 07/05/18 Exam# [id number] Ordering Dr: Antony Payne MD MAMMOGRAPHY - [...] delay biopsy of a clinically suspicious abnormality. [id number] Electronically Signed: Rocky Lunsford MD at 8:47 EST Tel [phone], Service support , CC: Antony Payne MD; Winnie Eid DO Sewer And Inspector: Signed Winnie Eid Start: 10-30-2017 End: 10-30-2017 Spine Thoracic (Routine) Comments: See Note; NOTES: [facility] Imaging Services [address] [place] [address] Spine Thoracic (Routine) MR#: [id number] Acct: [id number] Name: KARLA FOURNIER Rep #: [id number] : 1955 F 62 From: Tee Walters MD PCP: Winnie Eid DO Status: PRE CLI Study: Spine Thoracic (Routine) Date of Exam: 10/30/17 Exam# [id number] Ordering Dr: Winnie Eid DO STUDY: MRI [...] bulging of the discs at T9-T10 and X66-39-29 without spinal stenosis. Normal visualized thoracic cord. [...] CC: Keith Bower MD; Winnie Eid DO Sewer And Inspector: Signed Winnie Eid Work Phone: Start: 10-16-2017 End: 10-16-2017 Chest PA and Lateral Comments: See Note; NOTES: [facility] Imaging Services [address] [place] [address] Chest PA and Lateral MR#: [id number] Acct: [id number] Name: KARLA FOURNIER Rep #: [id number] : 1955 F 62 From: Neil Box MD PCP: Winnie Eid DO Status: REG CLI Study: Chest PA and Lateral Date of Exam: 10/16/17 Exam# [id number] Ordering Dr: Winnie Eid DO STUDY: X-RAY [...] Service support , CC: Winnie Eid DO Sewer And Inspector: Signed Winnie Eid Work Phone: Start: 10-16-2017 End: 10-16-2017 Thoracic Spine 3 Views Comments: See Note; NOTES: [facility] Imaging Services [address] [place] [address] Thoracic Spine 3 Views MR#: [id number] Acct: [id number] Name: KARLA FOURNIER Rep #: [id number] : 1955 F 62 From: Neil Box MD PCP: Winnie Eid DO Status: REG CLI Study: Thoracic Spine 3 Views Date of Exam: 10/16/17 Exam# [id number] Ordering Dr: Winnie Eid DO STUDY: X-RAY [...] Service support , CC: Winnie Eid DO Sewer And Inspector: Signed Winnie Eid Work Phone: Start: 10-02-2017 End: 10-03-2017 Dexa Bone Density Study Comments: See Note; NOTES: [facility] Imaging Services [address] [place] [address] Dexa Bone Density Study MR#: [id number] Acct: [id number] Name: KARLA FOURNIER Rep #: [id number] : 1955 F 62 From: Rocky Lunsford MD PCP: Winnie Eid DO Status: [facility] CL Study: Dexa Bone Density Study Date of Exam: 10/02/17 Exam# [id number] Ordering Dr: Antony Payne MD STUDY: DUAL [...] Rocky Lunsford MD at 8:18 EDT Tel [phone], Service support , CC: Antony Payne MD; Winnie Eid DO Sewer And Inspector: Signed Winnie Eid Start: 05-17-2017 End: 05-19-2017 SCREENING MAMM (CAD), BILAT Comments: See Note; NOTES: [facility] Imaging Services [address] [place] [address] SCREENING MAMM (CAD), BILAT MR#: [id number] Acct: [id number] Name: KARLA FOURNIER Rep #: [id number] : 1955 F 61 From: Rocky Lunsford MD PCP: Winnie Eid DO Status: REG CLI Study: SCREENING MAMM (CAD), BILAT Date of Exam: 05/17/17 Exam# [id number] Ordering Dr: Antony Payne MD MAMMOGRAPHY - [...] delay biopsy of a clinically suspicious abnormality. [id number] Electronically Signed: Rocky Lunsford MD at 9:00 EST Tel [phone], Service support , CC: Antony Payne MD; Winnie Eid DO Sewer And Inspector: Signed Winnie Eid Start: 08-10-2016 End: 08-10-2016 12 lead ECG Comments: See Note; NOTES: [facility] Cardiovascular Services [address] [place] [address] 12 Lead EKG 08/08/161655 MR#: [id number] Acct: [id number] Name: KARLA FOURNIER Rep #: [id number] : 1955 60 From: Maco Pinto MD Attending Dr: Jamaal Moise DO Status: REG I Ordering Dr: Jamaal Moise DO Date: 08/08/16 Location: [facility] Sex: F C Admitted: Test Reason : PREOP Blood Pressure : / mmHG Vent. Rate : 059 BPM Atrial Rate : 059 BPM P-R Int : 172 ms QRS Dur : 084 ms QT Int : 412 ms P-R-T Axes : 076 042 057 degrees QTc Int : 407 ms Sinus bradycardia Otherwise normal ECG Confirmed by MACO PINTO ([id number]), rewrite editor SMOOTH BRENNER ([id number]) on 08/10/2016 1:11:57 PM Referred By: TAHIRA Confirmed By:MACO PINTO 08/10/16 1312 Date Maco Pinto MD CC: Winnie Eid DO Date Dictated: 08/08/161655 Date Transcribed: 08/08/161655 Sewer And Inspector: Signed Winnie Eid Start: 05-16-2016 End: 05-16-2016 PT D/C Summary (1) Comments: See Note; NOTES: [facility] Physical Therapy [facility] [address] [place] [address] Fax REHABILITATION SERVICES DISCHARGE SUMMARY MR#: [id number] Acct: [id number] Name: KARLA FOURNIER Rep #: [id number] : 1955 60 From: Cert. ALIREZA Jeffrey PT, OCS Referring Dr.: Winnie Eid DO Status: REG RCR Insurance: [facility] - PT D/C Summary It has [...] please feel free to call me at [phone]. Thank you for the referral of this patient. Sincerely, Keith Goldstein PT, <Electronically signed by Keith Goldstein PT, Cert. ALIREZA, OCS> 05/16/16 0926 CC: Winnie Eid DO HANNAA Signed Winnie Eid Start: 03-31-2016 End: 03-31-2016 Inital Evaluation (1) - PT Comments: See Note; NOTES: [facility] [facility] [address] [place], [place] [address] Fax REHABILITATION SERVICES INITIAL EVALUATION MR#: [id number] Acct: [id number] Name: KARLA FOURNIER Rep #: [id number] : 1955 60 From: Keith Goldstein PT, [...] shoulder blade ocassional sharp lateral deltoid. VOCATION: dVisit container. SOCAIL: - Pain Left Scapula Pain [...] to be FAXED BACK to us at [phone] for Medicare purposes. Please let me know [...] Digital AND CAD Comments: See Note; NOTES: [facility] Imaging Services [address] [place] [address] Verdana 4d Bilat Scrn Digital AND CAD MR#: [id number] Acct: [id number] Name: KARLA FOURNIER Rep #: [id number] : 1955 F 60 From: Zara Brown MD PCP: Winnie Eid DO Status: REG CLI Study: Bilat Scrn Digital AND CAD Date of Exam: 03/30/16 Exam# [id number] Ordering Dr: [place], Marilyn TONGUE AND GROOVE MACHINE SETTER-C MAMMOGRAPHY - BILATERAL SCREENING REASON FOR EXAM: [...] delay biopsy of a clinically suspicious abnormality. [id number] Electronically Signed: Zara Brown MD at 16:48 EDT Tel , Service support [phone], CC: Marilyn York; Winnie Eid DO Sewer And Inspector: Signed Winnie Eid Work Phone: Start: 03-30-2016 End: 03-30-2016 Shoulder min 2 Views Comments: See Note; NOTES: [facility] Imaging Services [facility] [address] [place] [address] Verdana 4d Shoulder min 2 Views MR#: [id number] Acct: [id number] Name: ANALIKARLA Rep #: [id number] : 1955 F 60 From: Hebert Rasmussen MD PCP: Winnie Eid DO Status: REG CLI Study: Shoulder min 2 Views Date of Exam: 03/30/16 Exam# [id number] Ordering Dr: Winnie Eid DO STUDY: X-RAY [...] FACR at 15:41 EDT , Service support [phone], CC: Winnie Eid DO Sewer And Inspector: Signed Winnie Eid Work Phone: Start: 06-30-2015 End: 06-30-2015 Discharge Instruction Comments: See Note; NOTES: [facility] Medical Records Department [address] [place] [address] Instructions for Home/Discharge Instructions 06/30/15 0908 MR#: [id number] Acct: [id number] Name: KARLA FOURNIER Rep #: [id number] : 1955 59 From: Antony Pyane MD PCP: Katelynn Manzanares MD [place] [facility] [place] Diet: No Restrictions [...] [Multivitamin] 1 tablet PO DAILY 06/24/15 RX: [employer] Fatty Acids/Fish Oil [Fish Oil 1,000 mg [...] 12 lead ECG Comments: See Note; NOTES: [facility] Cardiovascular Services [address] [place] [address] 12 Lead EKG 06/23/151644 MR#: [id number] Acct: [id number] Name: KARLA FOURNIER Rep #: [id number] : 1955 59 From: Maco Pinto MD Attending Dr: Antony Payne MD Status: PRE SDC Ordering Dr: Antony Payne MD Date: 06/23/15 [place] [facility] [place]: F C Admitted: Test Reason : PRE-OP Blood Pressure : / mmHG Vent. Rate : 060 BPM Atrial Rate : 060 BPM P-R Int : 162 ms QRS Dur : 088 ms QT Int : 412 ms P-R-T Axes : 079 077 070 degrees QTc Int : 412 ms Normal sinus rhythm Normal ECG Confirmed by MACO PINTO ([id number]), rewrite editor SMOOTH BRENNER ([id number]) on 06/25/2015 1:57:03 PM Referred By: COREY Confirmed By:MACO PINTO 06/25/15 1357 Date Maco Pinto MD CC: Katelynn Manzanares MD Date Dictated: 06/23/151644 Date Transcribed: 06/23/151644 Sewer And Inspector: Signed Winnie Eid Start: 06-23-2015 End: 06-23-2015 Chest PA and Lateral Comments: See Note; NOTES: [facility] Imaging Services [address] [place] [address] Verdana 4d Chest PA and Lateral MR#: [id number] Acct: [id number] Name: KARLA FOURNIER Rep #: [id number] : 1955 F 59 From: Norberto Abrams DO PCP: Katelynn Manzanares MD Status: PRE SDC Study: Chest PA and Lateral Date of Exam: 06/23/15 Exam# [id number] Ordering Dr: Antony Payne MD STUDY: X-RAY [...] Norberto Abrams DO at 17:03 EST Tel [phone], Service support [phone], RAD/Chest PA and Lateral IMPRESSION: Hyperinflated lungs without acute cardiopulmonary disease or interval change. Electronically Signed: Norberto Abrams DO at 17:03 EST Tel [phone], Service support [phone], CC: Katelynn Manzanares MD; Antony Payne MD Sewer And Inspector: Signed Winnie Ragini Start: 06-23-2015 Antibody screen Winnie Eid Plan of Treatment Date Care Activity Detail Author Start: 11-21-2021 Procedure Education Eprescribed prescriptions (G8553) [facility] Work Phone: Start: 11-21-2021 Provider Instructions for Treatment [facility]; [facility] Work Phone: Start: 11-21-2021 Urinalysis qual/semiquant except immunoassays URINALYSIS (64128) [facility]; [facility] Work Phone: Start: 11-21-2021 Urine albumin quantitative MICROALBUMIN: CREATININE RATIO (11971) AND (20503) [facility]; [facility] Work Phone: Start: 11-21-2021 Comprehensive metabolic panel METABOLIC PANEL, COMPREHENSIVE (90497) [facility]; [facility] Work Phone: Start: 11-21-2021 Lipid panel LIPID PANEL (18850) [facility]; [facility] Work Phone: Start: 11-21-2021 Blood count complete auto&auto difrntl wbc CBC W/AUTO DIFF WBC (34529) [facility]; [facility] Work Phone: Start: 11-21-2021 Assay of thyroid stimulating hormone tsh TSH (51072) [facility]; [facility] Work [...] 06-09-2021 Assay of osmolality urine OSMOLALITY URINE (75624) [facility]; [facility] Work Phone: Start: 06-09-2021 Assay of urine sodium SODIUM URINE (62018) [facility]; [facility] [...] Phone: Start: 04-22-2020 Lipid panel LIPID PANEL (40471) [facility] Work Phone: Start: 04-22-2020 TSH Qn TSH (58834) [facility] Work Phone: Start: 03-03-2019 Patient Education Common Cold *: upper respiratory infection [facility] Work Phone: Start: 03-03-2019 Procedure Education Eprescribed prescriptions (G8553) [facility] Work Phone: Start: 03-03-2019 Provider Instructions for Treatment Follow up if no improvement or if symptoms worsen [facility] Work Phone: Start: 03-03-2019 [employer] streptococcus group a Rapid Strep Test, Office (15614) [facility]; [facility] Work Phone: Payers Date Payer Category Payer Unknown [id number] 2015 Unknown [id number] 2014 Unknown [id number] 2006 Unknown [id number] 1955 Unknown [id number] Private Health Insurance [id number] Unknown Social History Date Type Detail Facility [...] AUTHOR AUTHOR'S MIGUEL BONEMERON 09/20/2018 [facility] FOR RECORDS PERTAINING TO PATIENTS WHO [...] BE BASED ON THE PRIMARY CLINICAL RECORDS. [employer] provides no warranty or guarantee of the accuracy or completeness of information in this document.
[2023-07-16] MEDS: Ibuprofen 400 MG Tablet PO (23:44)
[2023-07-17 02:25] VITALS: BP 114/73; PULSE 76; RESP 18; TEMP 37; O2SAT 99
[2023-07-17] MEDS: Piperacil/Tazobactam 3.375 GM in 0.9% Normal Saline (50mL MB+) 50 ML IV (05:21)
[2023-07-17] MEDS: 0.9% Normal Saline (250mL Bag) 250 ML 15 ML IV (05:21)
[2023-07-17] MEDS: Ibuprofen 400 MG Tablet PO ×2 (05:22→12:05)
[2023-07-17 05:23] VITALS: BP 111/66; PULSE 70; RESP 18; TEMP 36.9; O2SAT 95
[2023-07-17] MEDS: 0.9% Normal Saline (1000mL) 1,000 ML 125 ML IV (06:31)
[2023-07-17 07:29] LABS: Absolute Lymphocyte Count 0.38 X10^3/uL (0.83-4.51); Absolute Neutrophil Count 6.1 X10^3/uL (2.0-7.7); Basophil# 0.01 X10^3/uL; Basophil% 0.1 % (0-1); Hematocrit 32.3 % (37-47); Hemoglobin 10.7 g/dL (12.0-15.0); Lymphocyte # 0.38 X10^3/ul (0.83-4.51); Lymphocyte % 5.7 % (19-41); Mean Corp Hgb Conc 33.1 g/dL (32-36); Mean Corpuscular Hgb 32.1 pg (27.0-32.0); Mean Platelet Vol. 7.7 fl (6.2-12.0); Monocyte# 0.14 X10^3/uL; Monocyte% 2.1 % (0-10); NRBC Flagged by Analyzer 0 % (0-5); Neutrophil # 6.13 X10^3/uL (2.7-7.7); Neutrophil % 91.7 % (47-70); POSITIVE DIFFERENTIAL YES; Platelet Count 350 K/mm3 (150-450); RBC Distribution Width CV 13.3 % (11.6-14.6); RBC Distribution Width SD 47.2 fl (35.1-43.9); Red Blood Count 3.33 M/mm3 (4.2-5.4); White Blood Count 6.7 K/mm3 (4.4-11.0)
[2023-07-17 07:54] LABS: Anion Gap 5 (5-15); BUN 6 mg/dL (7-18); BUN/Creat Ratio 8.3 RATIO (10-20); Calcium,Total 8.2 mg/dL (8.5-10.1); Chloride 105 mmol/L (98-107); Creatinine, Serum 0.72 mg/dL (0.55-1.02); EST Glomerular Filtration Rate 86 mL/min (>60); Est Glom Filt Rate - Afr Amer 104 mL/min (>60); Estimated Creatinine Clearance 60.13 ml/min; Glucose 137 mg/dL (74-106); Sodium Level 134 mmol/L (136-145)
[2023-07-17 08:00] VITALS: BP 106/62; PULSE 73; RESP 16; TEMP 36.5; O2SAT 94
--- NOTE | 2023-07-17 10:25 | PN.SURG_ITS ---
Subjective Subjective Patient evaluated resting comfortably in bed. She notes minimal amount of incisional discomfort. She notes the pain that she presented with is completely gone. She denies nausea, vomiting. She is tolerating her clear liquids. She is urinating well. Objective Data Objective Data Vital Signs: Vital Signs Temp Pulse Resp BP Pulse Ox O2 Del Method O2 Flow Rate 97.7 F L 73 16 106/62 94 Room Air 2 07/17/23 08:00 07/17/23 08:00 07/17/23 08:00 07/17/23 08:00 07/17/23 08:00 07/17/23 08:00 07/17/23 02:25 Oxygen Flow Rate (L/min) 2 Oxygen Delivery Method Room Air Weight: 137 lb 12.623 oz Body Mass Index (BMI) 25.2 Intake & Output: Intake and Output for Last 24 Hours 07/15/23 07/16/23 07/17/23 23:59 23:59 23:59 Intake Total 1050 / 1050 1200.5 / 1200.5 Output Total 100 / 100 Balance 1050 / 1050 1100.5 / 1100.5 Lab / Micro Data 07/17/23 06:43 07/17/23 06:43 Labs: Laboratory Results - last 24 hr 07/16/23 17:15: WBC 12.5 H, RBC 3.93 L, Hgb 12.5, Hct 36.9 L, MCV 93.9, MCH 31.8, MCHC 33.9, RDW Std Deviation 44.1 H, RDW Coeff of Tatiana 12.7, Plt Count 403, MPV 7.6, Immature Gran % (Auto) 0.200, Neut % (Auto) 87.2 H, Lymph % (Auto) 7.8 L, [place] % (Auto) 4.4, Eos % (Auto) 0.1, Baso % (Auto) 0.3, Absolute Neuts (auto) 10.9 H, Absolute Lymphs (auto) 0.97, Nucleated RBC % 0, Sodium 128 L, Potassium 4.0, Chloride 94 L, Carbon Dioxide 28.0, Anion Gap 6, BUN 8, Creatinine 0.83, Estim Creat Clear Calc 57.99, Est GFR (MDRD) Af Amer 88, Est GFR (MDRD) Non-Af 73, BUN/Creatinine Ratio 9.6 L, Glucose 133 H, Calcium 9.2, Total Bilirubin 0.90, AST 8 L, ALT 17, Alkaline Phosphatase 71, Total Protein 7.2, Albumin 3.6, Globulin 3.6, Albumin/Globulin Ratio 1.0 07/16/23 17:51: Urine Color Yellow, Urine Clarity Cloudy, Urine pH 7.0, Ur Specific [place] 1.010, Urine Protein 15 H, Urine Glucose (UA) Normal, Urine Ketones Negative, Urine Occult Blood 50 H, Urine Nitrite Negative, Urine Bilirubin Negative, Urine Urobilinogen Normal, Ur Leukocyte Esterase Negative, Urine RBC 0-5 SEEN, Urine WBC 0 SEEN, Ur Squamous Epith Cells 0-5 SEEN, Urine Bacteria 0 SEEN, Urine Mucus 0 SEEN 07/17/23 06:43: WBC 6.7, RBC 3.33 L, Hgb 10.7 L, Hct 32.3 L, MCV 97.0, MCH 32.1 H, MCHC 33.1, RDW Std Deviation 47.2 H, RDW Coeff of Tatiana 13.3, Plt Count 350, M PV 7.7, Immature Gran % (Auto) 0.400, Neut % (Auto) 91.7 H, Lymph % (Auto) 5.7 L , [place] % (Auto) 2.1, Eos % (Auto) 0.0, Baso % (Auto) 0.1, Absolute Neuts (auto) 6.1, Absolute Lymphs (auto) 0.38 L, Nucleated RBC % 0, Sodium 134 L, Potassium 4.0, Chloride 105, Carbon Dioxide 24.0, Anion Gap 5, BUN 6 L, Creatinine 0.72, Estim Creat Clear Calc 60.13, Est GFR (MDRD) Af Amer 104, Est GFR (MDRD) Non-Af 86, BUN/Creatinine Ratio 8.3 L, Glucose 137 H, Calcium 8.2 L Radiography Diagnostic Testing: Radiology Impression Abdomen/Pelvis CT 07/16/23 19:22 IMPRESSION: Acute appendicitis. Electronically Signed: Tee Rhoades DO at 20:14 EST , Physical Exam GI GI Narrative: Abdomen- soft, nontender. Incision c/d/i. No erythema or infection noted. Op- sites in place. Assessment & Plan Assessment/Plan (1) Acute appendicitis: QUALIFIERS: Acute appendicitis type: unspecified acute appendicitis type Qualified Code(s): K35.80 - Unspecified acute appendicitis PLAN: I evaluated this patient in conjunction with Dr. Paris. We will increase to full liquids Transition to oral antibiotics Probable discharge later this afternoon Charges/Coding Visit Charges Inpatient E&M: 85887 Subs Hosp L1 (no charge; post-op)
--- NOTE | 2023-07-17 10:57 | DCINST_ITS ---
Discharge Instructions Diet Discharge Diet: Light diet - advance as tolerated Activity Discharge Activity: May Not Drive (3-5 days) Lifting Restrictions: no lifting greater than 15 pounds for 3 weeks Dressing / Incision Call your doctor if your incision/area has: Continuous Slow Oozing, Sudden Increased Bleeding, Increased Pain/ Swelling, Increased Redness, Foul Smelling Discharge and Swelling at the incision site Call your doctor if you observe: Fever of 101 or Higher Suture Line Care: Avoid Pulling/Pushing and Avoid Pinching/Bending Remove Dressing in: 2 days (Remove op-sites (plastic dressings); leave steri- strips in place until follow-up) Cleanse incision/area with: Soap & Water Follow Up Care Please Follow Up With: Jamaal Paris MD When: Please contact our office at [phone] to schedule a follow-up appointment for 2 weeks from surgery date. Test Results: Test results from this visit will be discussed in further detail at your follow- up appointment, if applicable. Discharge Plan Admission Admit Date/Time: 07/16/23 22:40 Primary Reason for Your Visit: Acute appendicitis Attending Provider: Jamaal Paris Primary Care Provider: Trisha Brink Instructions Additional Instructions / Restrictions: Appendectomy Diet ? Start light with soups and soft bland foods. You may advance diet as tolerated. Activity ? You may drive in 3-5 days but not while taking narcotic pain medication. ? I encourage walking. You may go up steps, one at a time. ? Do not swim or use hot tubs for 2 weeks. ? For comfort, you may use warm compresses or ice as needed for 15-20 minutes at a time. Lifting ? You may lift up to 15 pounds for the next 3 weeks. Dressings/Incision ? You may shower OVER your plastic dressings ? Do NOT tub bathe for 1 week ? Leave plastic dressings on for 2 days post-operatively. ? When plastic dressings are removed, you will find steri-strips. It is okay to continue showering with them in place, pat them dry. ? You may remove steri-strips after 1 week. We recommend getting them soaking wet for easier removal. Medications ? Anesthesia used during surgery and pain medications may cause constipation. I recommend initiating on the day of surgery a fiber supplement like, Metamucil, Citrucel, FiberCon, Benefiber, or a generic form of these medications. 1 heaping tablespoon in water daily. You may continue to utilize any bowel regimen or oral laxatives that you routinely take. ? As long as you are not intolerant to Tylenol, acetaminophen, ibuprofen, Motrin, Advil, Aleve, or similar medications, I would recommend transitioning to these [id number]-[id number] medicines as soon as possible instead of continued use of narcotic pain medication. Follow up ? You should call [facility] soon after surgery, at [phone] option 1 to make a follow up appointment for 2 weeks from after your surgery. Discharge Orders/Prescriptions Prescriptions: Continued vitamin K2 100 mcg capsule 100 mcg PO DAILY levothyroxine [Levoxyl] 75 MCG tablet 75 mcg PO DAILY Patient Comments: thyroid calcium carbonate 600 MG tablet 1,000 mg PO DAILY Patient Comments: supplement cholecalciferol (vitamin D3) [Vitamin D3] 1,000 UNIT tablet 50 mcg PO DAILY Patient Comments: supplement multivitamin with folic acid [Thera] 1 TABLET tablet 1 tab PO DAILY Patient Comments: supplement biotin 10,000 MCG capsule 5,000 mcg PO DAILY duloxetine 30 mg capsule,delayed release(DR/EC) 30 mg PO DAILY meloxicam 15 mg tablet 15 mg PO DAILY tramadol 50 mg tablet 50 mg PO QHS lisinopril 10 mg tablet 10 mg PO DAILY ferrous sulfate [iron] 325 mg (65 mg iron) tablet 325 mg PO DAILY Tumeric 500 mg PO DAILY Referrals / Follow Up: Trisha Brink DO [Primary Care Provider] - Jamaal Paris MD [Med Staff - Active Staff] - (Please contact our office to schedule a 2 week follow-up from surgery date.) Disposition Disposition (needs filled in before D/C Order can be placed): Home, Self Care
[2023-07-17 13:35] VITALS: BP 131/66; PULSE 69; RESP 16; TEMP 36.9; O2SAT 98
--- NOTE | 2023-07-17 14:21 | PHA.DC_ITS ---
Pharmacy [facility] Service has performed discharge medication reconciliation and counseling for this patient. The patient's discharge medication list was reviewed for discrepancies and discrepancies were resolved. The patient was counseled on the following discharge medications and changes in medications for homegoing were reviewed. The Reason for Use, instructions for use, and potential side effects were reviewed for all new medications. The patient's questions regarding all of their medications were answered. 1. Amoxicillin/clavulanate 875/125 mg PO BID x 4 days The patient was able to verbally demonstrate an understanding of their discharge medications. Medications at Discharge Home Medications calcium carbonate 600 mg calcium (1,500 mg) tablet 1,000 mg PO DAILY 06/24/15 cholecalciferol (vitamin D3) 25 mcg (1,000 unit) tablet (Vitamin D3) 50 mcg PO DAILY 06/24/15 levothyroxine 75 mcg tablet (Levoxyl) 75 mcg PO DAILY 06/24/15 multivitamin with folic acid 400 mcg tablet (Thera) 1 tab PO DAILY 06/24/15 biotin 10,000 mcg capsule 5,000 mcg PO DAILY 10/03/18 duloxetine 30 mg capsule,delayed release 30 mg PO DAILY 06/28/23 lisinopril 10 mg tablet 10 mg PO DAILY 06/28/23 meloxicam 15 mg tablet 15 mg PO DAILY 06/28/23 tramadol 50 mg tablet 50 mg PO QHS 06/28/23 vitamin K2 100 mcg capsule 100 mcg PO DAILY 07/13/23 Tumeric 500 mg PO DAILY 07/16/23 ferrous sulfate 325 mg (65 mg iron) tablet (iron) 325 mg PO DAILY 07/16/23 amoxicillin 875 mg-potassium clavulanate 125 mg tablet 1 tab PO BIDCM 4 days #8 tabs 07/17/23
[2023-07-17 16:20] VITALS: BP 112/67; PULSE 75; RESP 16; TEMP 36.6; O2SAT 94
--- OUTSIDE RECORDS SUMMARY | 2023-07-19 19:36 | XMS RPT_ITS | CCD ---
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 PAINT, Tomeka Unavailable Unavailable Slarb MOLD LAMINATOR, Prabha Unavailable Unavailable Unavailable Unavailable Jennifer Melara LPN Unavailable Unavailable Ragini DO, Winnie Unavailable Medications Completed/Discontinued Medications Medication Drug Class(es) [...] 11:39-0400 Body height 160.02 cm Tomeka Toledo [facility]; [facility] Work Phone: 11-21-2021 11:39-0400 Body mass index (BMI) [Ratio] 24.47 kg/m2 Tomeka Toledo [facility]; [facility] Work Phone: 11-21-2021 11:39-0400 Body surface area Derived from formula 1.65 m2 Tomeka Toledo [facility]; [facility] Work Phone: 11-21-2021 11:39-0400 Body temperature 97.3 [degF] Tomeka Toledo [facility] Comprehensiv e Internal Medicine; [facility] [...] Medicine Start: 03-15-2020 Review Winnie Eid Compreh [facility] Internal Medicine Start: 03-03-2019 End: 03-03-2019 Office outpatient visit 15 minutes Winnie Eid [facility] Start: 10-21-2018 End: 10-21-2018 Office outpatient visit 10 minutes Winnie Eid [facility] Start: 09-18-2018 Patient encounter procedure Winnie Eid [facility] Internal Med Start: 09-18-2018 End: 09-18-2018 Office [...] Office outpatient visit 10 minutes Winnie Eid [facility] Internal Medicine Start: 08-14-2016 End: 08-14-2016 Office outpatient visit 15 minutes Winnie Hilton Internal Medicine Start: 05-08-2016 End: 05-08-2016 Office outpatient visit 10 minutes Winnie Eid [facility] Internal Medicine Start: 03-30-2016 End: 03-30-2016 Office outpatient visit 15 minutes Winnie Eid [facility] Internal Medicine Start: 02-17-2016 End: 02-17-2016 Office outpatient visit 15 minutes Winnie Eid [facility] Internal Medicine Start: 07-13-2015 End: 07-13-2015 Office outpatient visit 25 minutes Winnie Eid [facility] Internal Medicine Start: 06-21-2015 End: 06-21-2015 Office outpatient visit 15 minutes Winnei Eid [facility] Internal Medicine Start: 05-31-2015 End: 05-31-2015 Phone Encounter Winnie Hilton [facility] al Medicine Start: 05-31-2015 End: 05-31-2015 Office outpatient visit 15 minutes Winnie Eid [facility] Internal Medicine Start: 05-17-2015 End: 05-17-2015 Patient encounter status Winnie Harrison DO Work Phone: [facility] Start: 05-17-2015 End: 05-17-2015 Periodic preventive med est patient 18-39 yrs Winnie Hilton [facility] Start: 05-17-2015 End: 05-17-2015 Preprocedural examination done Winnie Eid DO Work Phone: [facility] Internal Medicine Start: 09-14-2014 End: 09-14-2014 Office outpatient visit 15 minutes Winnie Hilton [facility] Start: 03-30-2014 End: 03-30-2014 Office outpatient visit 25 minutes Winnie Eid [facility] Internal Medicine Start: 02-26-2014 End: 02-26-2014 Lab Order Winnie Hilton [facility] Start: 11-25-2013 End: 11-27-2013 Patient encounter procedure Winnie Hilton [facility] Start: 02-10-2013 End: 02-10-2013 Patient encounter procedure Winnie Eid [facility] Internal Medicine Start: 01-20-2013 End: 01-20-2013 Patient encounter procedure Winnie Eid [facility] Internal Medicine Start: 02-26-2012 End: 02-26-2012 Phone Encounter Winnie Ragini [facility] Start: 02-16-2012 End: 02-16-2012 Office outpatient visit 10 minutes Winnie Eid [facility] Internal Medicine Start: 02-13-2012 End: 02-13-2012 Annotation/Addendum Winnie Raginiene Hilton [facility] Start: 02-13-2012 End: 02-13-2012 Office outpatient visit 15 minutes Winnie Eid [facility] Internal Medicine Start: 08-10-2011 End: 08-10-2011 Phone Encounter Winnie Harrison [facility] Start: 04-24-2011 End: 04-24-2011 Patient encounter procedure Winnie Eid [facility] Internal Medicine Start: 03-10-2011 End: 03-10-2011 Patient encounter procedure Winnie Ragini [facility] Internal Medicine Start: 03-09-2011 End: 03-09-2011 Phone Encounter Winnie Ragini [facility] Start: 02-22-2011 End: 02-22-2011 Phone Encounter Winnieraj Harrison [facility] Start: 10-31-2010 End: 10-31-2010 Office outpatient visit 25 minutes Winnie Eid [facility] Internal Medicine Start: 09-27-2009 End: 09-27-2009 Office outpatient visit 15 minutes Winnie Eid [facility] Internal Medicine Start: 08-31-2009 End: 08-31-2009 Office outpatient visit 10 minutes Winnie Eid [facility] Internal Medicine Start: 11-17-2008 End: 11-17-2008 Patient encounter procedure Winnie Eid [facility] Internal Medicine Start: 10-08-2007 End: 10-08-2007 Patient encounter procedure Winnie Eid [facility] Start: 08-26-2007 End: 08-26-2007 Patient encounter procedure Winnie Eid [facility] Start: 11-01-2006 End: 11-01-2006 Patient encounter procedure Winnie Eid [facility] Start: 10-18-2006 End: 10-18-2006 Patient encounter procedure Winnie Eid [facility] Internal Medicine Start: 08-20-2006 End: 08-20-2006 Patient encounter procedure Winnie Eid [facility] Internal Medicine Start: 08-17-2006 End: 08-17-2006 Historical Summary Winnie Eid [facility] Patient encounter status Tomeka Santoyo MA [facility]; [facility] Work Phone: Procedures Date Procedure Procedure Detail Performing Clinician Start: 09-27-2021 End: 09-27-2021 SCRN MAMM (CAD)W/AMY BILAT Comments: See Note; NOTES: [facility] Imaging Services [address] [place] [address] SCRN MAMM (CAD)W/AMY BILAT MR#: [id number] Acct: [id number] Name: KARLA FOURNIER Rep #: [id number] : 1955 F 66 From: Rocky plaza MD PCP: Dr. Winnie Eid, DO Status: [facility] Study: SCRN MAMM (CAD)W/AMY BILAT Date of Exam: 09/16 08/09 Exam# [id number] Ordering Dr: Devora Troncoso MD MAMMOGRAPHY - [...] delay biopsy of a clinically suspicious abnormality. [id number] Electronically Signed: Rocky Lunsford MD at 13:46 EDT , CC: Dr. Winnie Eid DO; Dr. Devora Sheehan MD Crepe Laminator Operator: Signed Winnie Eid DO Work Phone: Start: 08-09-2021 End: 08-09-2021 Bone Scan Whole Body Comments: See Note; NOTES: [facility] Imaging Services [address] [place] [address] Bone Scan Whole Body MR#: [id number] Acct: [id number] Name: KARLA FOURNIER Rep #: [id number] : 1955 F 65 From: Fabiano Verduzco PCP: Dr. Winnie Eid DO Status: REG CLI Study: Bone Scan Whole Body Date of Exam: 08/09/21 Exam# [id number] Ordering Dr: Tee Jalloh DO CLINICAL: 65-year-old [...] , CC: Dr. Tee Jalloh DO; Dr. Winine Eid DO Crepe Laminator Operator: Signed Winnie Eid DO Work Phone: Start: 06-20-2021 End: 06-20-2021 HIP, UNI W/ Pelvis 2-3 Views Comments: See Note; NOTES: [facility] Imaging Services [address] [place] [address] HIP, UNI W/ Pelvis 2-3 Views MR#: [id number] Acct: [id number] Name: KARLA FOURNIER Rep #: [id number] : 1955 F 65 From: Rocky plaza MD PCP: Dr. Winnie Eid DO Status: REG CLI Study: HIP, UNI W/ Pelvis 2-3 Views Date of Exam: 09/06 Exam# [id number] Ordering Dr: Winnie Eid DO STUDY: X-RAY [...] support , CC: Dr. Winnie Eid DO Crepe Laminator Operator: Signed Winnie Eid DO Work Phone: Start: 06-09-2021 End: 06-09-2021 Emergency Department Summary Comments: See Note; NOTES: [facility] Medical Records Department [address] [place] [address] Emergency Department Summary 06/09/21 MR#: [id number] Acct: [id number] Name: KARLA FOURNIER Rep #: [id number] : 1955 65 From: Allan Reid MD PCP: Dr. Winnie Eid, Status:[facility] ER Location: ED HPI History of Present [...] any weakness, confusion, or other recent illness. [facility] Medical History Hypertension Hypothyroidism Incontinence [...] 74.8 H Lymph % (Auto) 14.4 L [place] % (Auto) 8.5 Eos % (Auto) 1.3 [...] your Primary Care Provider. Call [facility] ([phone]) or report to the closest Emergency Room. Call 911 if necessary. 06/09/21 6659 <Electronically signed by Allan Reid MD> Cosigner Signature (if applicable): CC: Dr. Winnie Eid DO Signed Winnie Eid DO Work Phone: Start: 06-06-2021 End: 06-08-2021 Lumbar Spine 2 or 3 Views Comments: See Note; NOTES: [facility] Imaging Services [address] [place] [address] Lumbar Spine 2 or 3 Views MR#: [id number] Acct: [id number] Name: KARLA FOURNIER Rep #: [id number] : 1955 F 65 From: Aravind Toth DO PCP: Dr. Winnie Eid DO Status: REG CLI Study: Lumbar Spine 2 or 3 Views Date of Exam: Exam# [id number] Ordering Dr: Tita Vargas NP CASH CLERK-C STUDY: X-RAY - LUMBAR SPINE REASON FOR [...] CC: JONATHAN Vargas; Dr. Winnie Eid DO Crepe Laminator Operator: Signed Tita Vargas CNP Work Phone: Start: 05-11-2021 End: 05-11-2021 Emergency Department Summary Comments: See Note; NOTES: [facility] Medical Records Department [address] [place] [address] Emergency Department Summary 05/11/21 MR#: [id number] Acct: [id number] Name: KARLA FOURNIER Rep #: [id number] : 1955 65 From: Wan Valenzuela MD [...] nothing that they could do for her. [facility] Medical History Hypothyroidism Incontinence in [...] your Primary Care Provider. Call [facility] ([phone]) or report to the closest Emergency Room. Call 911 if necessary. 05/11/21 1504 <Electronically signed by Wan Valenzuela MD> Cosigner Signature (if applicable): CC: Dr. Winnie Eid DO Signed Winnie Eid DO Work Phone: Start: 05-11-2021 End: 06-08-2021 Brain/Head without Contrast Comments: See Note; NOTES: [facility] Imaging Services [address] [place] [address] Brain/Head without Contrast MR#: [id number] Acct: [id number] Name: KARLA FOURNIER Rep #: [id number] : 1955 F 65 From: Jarek Cheng MD PCP: Dr. Winnie Eid DO Status: REG ER Study: Brain/Head without Contrast Date of Exam: 04/19 10/06 Exam# [id number] Ordering Dr: Wan Valenzuela MD STUDY: CT [...] Wan Valenzuela MD; Dr. Winnie Eid DO Crepe Laminator Operator: Signed Winnie Eid DO Work Phone: Start: 05-11-2021 End: 06-08-2021 Spine Cervical without Contras Comments: See Note; NOTES: [facility] Imaging Services [address] [place] [address] Spine Cervical without Contras MR#: [id number] Acct: [id number] Name: KARLA FOURNIER Rep #: [id number] : 1955 F 65 From: Jarek Cheng MD PCP: Dr. Winnie Eid DO Status: REG ER Study: Spine Cervical without Contras Date of Exam: 07/11/20 Exam# [id number] Ordering Dr: Wan Valenzuela MD STUDY: CT [...] Wan Valenzuela MD; Dr. Winnie Eid DO Crepe Laminator Operator: Signed Winnie Eid DO Work Phone: Start: 07-13-2020 End: 07-13-2020 Dexa Bone Density Study Comments: See Note; NOTES: [facility] Imaging Services [address] [place] [address] Dexa Bone Density Study MR#: [id number] Acct: [id number] Name: KARLA FOURNIER Rep #: [id number] : 1955 F 64 From: Rocky plaza MD PCP: Dr. Winnie Eid DO Status: [facility] Study: Dexa Bone Density Study Date of Exam: 07/13/20 Exam# [id number] Ordering Dr: Winnie Eid DO STUDY: DUAL ENERGY X-RAY ABSORPTIOMETRY / DXA REASON FOR EXAM: Female, 64 years old. 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 Winnie Eid DO Crepe Laminator Operator: Signed Winnie Eid DO Work Phone: Start: 07-13-2020 End: 07-13-2020 SCRN MAMM (CAD)W/AMY BILAT Comments: See Note; NOTES: [facility] Imaging Services [address] [place] [address] SCRN MAMM (CAD)W/AMY BILAT MR#: [id number] Acct: [id number] Name: KARLA FOURNIER Rep #: [id number] : 1955 F 64 From: Rocky plaza MD PCP: Dr. Winnie Eid DO Status: REG CLI Study: SCRN MAMM (CAD)W/AMY BILAT Date of Exam: 06/19 12/06 Exam# [id number] Ordering Dr: Winnie Eid DO MAMMOGRAPHY - [...] delay biopsy of a clinically suspicious abnormality. [id number] Electronically Signed: Rocky Lunsford MD at 11:28 EST , Service support , CC: Dr. Winnie Eid DO Crepe Laminator Operator: Signed Winnie Eid DO Work Phone: Start: 05-14-2020 End: 05-18-2020 12 Lead EKG Comments: See Note; NOTES: [facility] Cardiovascular Services [address] [place] [address] 12 Lead EKG 05/14/20 0942 MR#: [id number] Acct: [id number] Name: KARLA FOURNIER Rep #: [id number] : 1955 64 From: Serjio Thomas MD Attending Dr: Dr. Jamaal Moise DO Status: RE G CLI Ordering Dr: Jamaal Moise DO Date: 05/14/20 Location: [facility] Sex: F C Admitted: Test Reason : PREOP Blood Pressure : / mmHG Vent. Rate : 076 BPM Atrial Rate : 076 BPM P-R Int : 152 ms QRS Dur : 078 ms QT Int : 378 ms P-R-T Axes : 068 010 043 degrees QTc Int : 425 ms Normal sinus rhythm Normal ECG Confirmed by SERJIO THOMAS MD ([id number]), managing editor ANAT AYALA ([id number]) on 05/18/2020 9:28:15 AM Referred By: Jamaal Moise Confirmed By:SERJIO THOMAS MD 05/18/20927 Date Serjio Thomas MD CC: Dr. Winnie Eid DO; Dr. Jamaal Moise DO Signed Winnie Eid DO Work Phone: Start: 07-07-2019 End: 07-09-2019 SCREEN MAMM (CAD) W/AMY BILAT Comments: See Note; NOTES: [facility] Imaging Services [address] [place] [address] SCREEN MAMM (CAD) W/AMY BILAT MR#: [id number] Acct: [id number] Name: KARLA FOURNIER Rep #: [id number] : 1955 F 63 From: Rocky Lunsford MD PCP: Winnie Eid DO Status: [facility] Study: SCREEN MAMM (CAD) W/AMY BILAT Date of Exam: 07/07/19 Exam# [id number] Ordering Dr: Devora Franco MD MAMMOGRAPHY - [...] delay biopsy of a clinically suspicious abnormality. [id number] Electronically Signed: Rocky Isatu, at 11:10 EST , Service support , CC: Winnie Eid DO; Devora Franco MD Crepe Laminator Operator: Signed Winnie Eid Start: 03-06-2019 End: 03-06-2019 Emergency Department Summary Comments: See Note; NOTES: [facility] Medical Records Department [address] [place] [address] Emergency Department Summary 03/06/19 1227 MR#: [id number] Acct: [id number] Name: KARLA FOURNIER Rep #: [id number] : 1955 63 From: Sharee Vegas DO [...] current syndrome] This note was generated with [employer] dictation software. It may contain incorrect words, [...] problems, contact your Primary Care Provider. Call [facility] ([phone]) or report to the closest Emergency Room. Call 911 if necessary. 03/06/19 1222 <Electronically signed by Remus Ungur DO> Date Sharee Vegas DO Cosigner Signature (If Indicated): Date CC: Winnie Singh Start: 03-06-2019 End: 03-06-2019 Chest 1 View (Portable) Comments: See Note; NOTES: [facility] Imaging Services [address] [facility] [place] [address] Chest 1 View (Portable) MR#: [id number] Acct: [id number] Name: KARLA FOURNIER Rep #: [id number] : 1955 F 63 From: Rocky Lunsford MD PCP: Winnie Eid DO Status: PRE ER Study: Chest 1 View (Portable) Date of Exam: 03/06/19 Exam# [id number] Ordering Dr: ProviderMatthew. STUDY: X-RAY CHEST REASON [...] CC: ED PHYSICIAN PROVIDER; Winnie Eid DO Crepe Laminator Operator: Signed Winnie Eid Start: 10-14-2018 End: 10-14-2018 12 lead ECG Comments: See Note; NOTES: [facility] Cardiovascular Services [address] [place] [address] 12 Lead EKG 10/10/18 0739 MR#: [id number] Acct: [id number] Name: KARLA FOURNIER Rep #: [id number] : 1955 63 From: Bladimir Chaney MD Attending Dr: Tita Orozco MD Status: DEP [facility] Ordering Dr: Patrick Lara MD Date: 10/10/18 Location: [facility] Sex: F C Admitted: Test Reason : PRE OP Blood Pressure : / mmHG Vent. Rate : 060 BPM Atrial Rate : 060 BPM P-R Int : 152 ms QRS Dur : 082 ms QT Int : 410 ms P-R-T Axes : 079 027 050 degrees QTc Int : 410 ms Normal sinus rhythm Normal ECG Confirmed by SHIV LEUNG, BLADIMIR ([id number]), managing editor ANAT AYALA ([id number]) on 10/14/2018 12:39:43 PM Referred By: Tita Orozco Confirmed By:BLADIMIR CHANEY MD 10/14/18 1239 Date Bladimir Chaney MD CC: Patrick Lara MD; Winnie Eid DO; MD Tita Orozco Signed Winnie Eid Start: 10-10-2018 End: 10-10-2018 Operative Report Comments: See Note; NOTES: [facility] Medical Records Department [address] [place] [address] Operative Report 10/10/18 1036 MR#: [id number] Acct: [id number] Name: KARLA FOURNIER Rep #: [id number] : 1955 63 From: Tita Orozco MD PCP: Winnie Eid DO Status: REG SD Y Location: [place] [address] Problem List (1) Vaginal vault prolapse after [...] cystoscopy. No bladder, urethral or rectal injury. 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 The vaginal epithelium overlying the midurethra [...] 10-10-2018 Discharge Instruction Comments: See Note; NOTES: [facility] Medical Records Department [address] [place] [address] Instructions for Home/Discharge Instructions 10/10/18 1034 MR#: [id number] Acct: [id number] Name: KARLA FOURNIER Rep #: [id number] : 1955 63 From: Tita Orozco MD PCP: Winnie Eid DO Status: REG [facility] Discharge Activity: Return to Normal Activity May [...] MAMM (CAD), BILAT Comments: See Note; NOTES: [facility] Imaging Services [address] [place] [address] SCREENING MAMM (CAD), BILAT MR#: [id number] Acct: [id number] Name: ANALIKARLA Jorge Rep #: [id number] : 1955 F 62 From: Rocky Lunsford MD PCP: Winnie Eid DO Status: [facility] Study: SCREENING MAMM (CAD), BILAT Date of Exam: 07/05/18 Exam# [id number] Ordering Dr: Antony Payne MD MAMMOGRAPHY - [...] delay biopsy of a clinically suspicious abnormality. [id number] Electronically Signed: Rocky Lunsford MD at 8:47 EST Tel [phone], Service support , CC: Antony Payne MD; Winnie iEd DO Crepe Laminator Operator: Signed Winnie Eid Start: 10-30-2017 End: 10-30-2017 Spine Thoracic (Routine) Comments: See Note; NOTES: [facility] Imaging Services [address] [place] [address] Spine Thoracic (Routine) MR#: [id number] Acct: [id number] Name: KARLA FOURNIER Rep #: [id number] : 1955 F 62 From: Tee Walters MD PCP: Winnie Eid DO Status: PRE CLI Study: Spine Thoracic (Routine) Date of Exam: 10/30/17 Exam# [id number] Ordering Dr: Winnie Eid DO STUDY: MRI [...] bulging of the discs at T9-T10 and [id number] without spinal stenosis. Normal visualized thoracic cord. [...] CC: Keith Bower MD; Winnie Eid DO Crepe Laminator Operator: Signed Winnie Eid Work Phone: Start: 10-16-2017 End: 10-16-2017 Chest PA and Lateral Comments: See Note; NOTES: [facility] Imaging Services [address] [place] [address] Chest PA and Lateral MR#: [id number] Acct: [id number] Name: KARLA FOURNIER Rep #: [id number] : 1955 F 62 From: Neil Box MD PCP: Winnie Eid DO Status: REG CLI Study: Chest PA and Lateral Date of Exam: 10/16/17 Exam# [id number] Ordering Dr: iWnnie Eid DO STUDY: X-RAY CHEST REASON FOR [...] Service support , CC: Winnie Eid DO Crepe Laminator Operator: Signed Winnie Eid Work Phone: Start: 10-16-2017 End: 10-16-2017 Thoracic Spine 3 Views Comments: See Note; NOTES: [facility] Imaging Services [address] [place] [address] Thoracic Spine 3 Views MR#: [id number] Acct: [id number] Name: KARLA FOURNIER Rep #: [id number] : 1955 F 62 From: Neil Box MD PCP: Winnie Eid DO Status: REG CLI Study: Thoracic Spine 3 Views Date of Exam: 10/16/17 Exam# [id number] Ordering Dr: Winnie Eid DO STUDY: X-RAY [...] Service support , CC: Winnie Eid DO Crepe Laminator Operator: Signed Winnie Eid Work Phone: Start: 10-02-2017 End: 10-03-2017 Dexa Bone Density Study Comments: See Note; NOTES: [facility] Imaging Services [address] [place] [address] Dexa Bone Density Study MR#: [id number] Acct: [id number] Name: KARLA FOURNIER Rep #: [id number] : 1955 F 62 From: Rocky Lunsford MD PCP: Winnie Eid DO Status: [facility] CL Study: Dexa Bone Density Study Date of Exam: 10/02/17 Exam# [id number] Ordering Dr: Antony Payne MD STUDY: DUAL [...] Rocky Lunsford MD at 8:18 EDT Tel [phone], Service support , CC: Antnoy Payne MD; Winnie Eid DO Crepe Laminator Operator: Signed Winnie Eid Start: 05-17-2017 End: 05-19-2017 SCREENING MAMM (CAD), BILAT Comments: See Note; NOTES: [facility] Imaging Services [address] [place] [address] SCREENING MAMM (CAD), BILAT MR#: [id number] Acct: [id number] Name: KARLA FOURNIER Rep #: [id number] : 1955 F 61 From: Rocky Lunsford MD PCP: Winnie Eid DO Status: REG CLI Study: SCREENING MAMM (CAD), BILAT Date of Exam: 05/17/17 Exam# [id number] Ordering Dr: Antony Payne MD MAMMOGRAPHY - [...] delay biopsy of a clinically suspicious abnormality. [id number] Electronically Signed: Rocky Lunsford MD at 9:00 EST Tel [phone], Service support , CC: Antony Payne MD; Winnie Eid DO Crepe Laminator Operator: Signed Winnie Eid Start: 08-10-2016 End: 08-10-2016 12 lead ECG Comments: See Note; NOTES: [facility] Cardiovascular Services [address] [place] [address] 12 Lead EKG 08/08/161655 MR#: [id number] Acct: [id number] Name: KARLA FOURNIER Rep #: [id number] : 1955 60 From: Maco Pinto MD Attending Dr: Jamaal Moise DO Status: REG I Ordering Dr: Jamaal Moise DO Date: 08/08/16 Location: [facility] Sex: F C Admitted: Test Reason : PREOP Blood Pressure : / mmHG Vent. Rate : 059 BPM Atrial Rate : 059 BPM P-R Int : 172 ms QRS Dur : 084 ms QT Int : 412 ms P-R-T Axes : 076 042 057 degrees QTc Int : 407 ms Sinus bradycardia Otherwise normal ECG Confirmed by MACO PINTO ([id number]), managing editor SMOOTH BRENNER ([id number]) on 08/10/2016 1:11:57 PM Referred By: TAHIRA Confirmed By:MACO PINTO 08/10/16 1312 Date Maco Pinto MD CC: Winnie Eid DO Date Dictated: 08/08/161655 Date Transcribed: 08/08/161655 Crepe Laminator Operator: Signed Winnie Eid Start: 05-16-2016 End: 05-16-2016 PT D/C Summary (1) Comments: See Note; NOTES: [facility] Physical Therapy [facility] [address] [place] [address] Fax REHABILITATION SERVICES DISCHARGE SUMMARY MR#: [id number] Acct: [id number] Name: KARLA FOURNIER Rep #: [id number] : 1955 60 From: Cert. ALIREZA Jeffrey PT, OCS Referring Dr.: Winnie Eid DO Status: REG RCR [facility] D/C Summary It has [...] please feel free to call me at [phone]. Thank you for the referral of this patient. Sincerely, Keith Goldstein PT, <Electronically signed by Keith Goldstein PT, Cert. ALIREZA, OCS> 05/16/16 0926 CC: Winnie Eid DO HANNAA Signed Wninie Eid Start: 03-31-2016 End: 03-31-2016 Inital Evaluation (1) - PT Comments: See Note; NOTES: [facility] Physical Therapy [facility] [address] [place], [place] [address] Fax REHABILITATION SERVICES INITIAL EVALUATION MR#: [id number] Acct: [id number] Name: KARLA FOURNIER Rep #: [id number] : 1955 60 From: Keith Goldstein PT, [...] shoulder blade ocassional sharp lateral deltoid. 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 SOCAIL: - Pain Left Scapula Pain [...] to be FAXED BACK to us at [phone] for Medicare purposes. Please let me know [...] Digital AND CAD Comments: See Note; NOTES: [facility] Imaging Services [address] [place] [address] Verdana 4d Bilat Scrn Digital AND CAD MR#: [id number] Acct: [id number] Name: KARLA FOURNIER Rep #: [id number] : 1955 F 60 From: Zara Brown MD PCP: Winnie Eid DO Status: REG CLI Study: Bilat Scrn Digital AND CAD Date of Exam: 03/30/16 Exam# [id number] Ordering Dr: Spencer, Marilyn CASH CLERK-C MAMMOGRAPHY - BILATERAL SCREENING REASON FOR EXAM: [...] delay biopsy of a clinically suspicious abnormality. [id number] Electronically Signed: Zara Brown MD at 16:48 EDT Tel , Service support [phone], CC: Marilyn York; Winnie Eid DO Crepe Laminator Operator: Signed Winnie Eid Work Phone: Start: 03-30-2016 End: 03-30-2016 Shoulder min 2 Views Comments: See Note; NOTES: [facility] Imaging Services [facility] [address] [place] [address] Verdana 4d Shoulder min 2 Views MR#: [id number] Acct: [id number] Name: ANALIKARLA Rep #: [id number] : 1955 F 60 From: Hebert Rasmussen MD PCP: Winnie iEd DO Status: REG CLI Study: Shoulder min 2 Views Date of Exam: 03/30/16 Exam# [id number] Ordering Dr: Winnie Eid DO STUDY: X-RAY [...] FACR at 15:41 EDT , Service support [phone], CC: Winnie Eid DO Crepe Laminator Operator: Signed Winnie Eid Work Phone: Start: 06-30-2015 End: 06-30-2015 Discharge Instruction Comments: See Note; NOTES: [facility] Medical Records Department [address] [place] [id number] Instructions for Home/Discharge Instructions 06/30/15 0908 MR#: [id number] Acct: [id number] Name: KARLA FOURNIER Rep #: [id number] : 1955 59 From: Antony Payne MD PCP: Katelynn Manzanares MD Status: REG [facility] Discharge Diet: No Restrictions Discharge Activity: May [...] [Multivitamin] 1 tablet PO DAILY 06/24/15 RX: [place]-3 Fatty Acids/Fish Oil [Fish Oil 1,000 mg [...] 12 lead ECG Comments: See Note; NOTES: [facility] Cardiovascular Services [address] [place] [address] 12 Lead EKG 06/23/151644 MR#: [id number] Acct: [id number] Name: KARLA FOURNIER Rep #: [id number] : 1955 59 From: Maco Pinto MD Attending Dr: Antony Payne MD Status: PRE SDC Ordering Dr: Antony Payne MD Date: 06/23/15 Location: [facility] Sex: F C Admitted: Test Reason : PRE-OP Blood Pressure : / mmHG Vent. Rate : 060 BPM Atrial Rate : 060 BPM P-R Int : 162 ms QRS Dur : 088 ms QT Int : 412 ms P-R-T Axes : 079 077 070 degrees QTc Int : 412 ms Normal sinus rhythm Normal ECG Confirmed by MACO PINTO ([id number]), managing editor SMOOTH BRENNER ([id number]) on 06/25/2015 1:57:03 PM Referred By: COREY Confirmed By:MACO PINTO 06/25/15 1357 Date Maco Pinto MD CC: Katelynn Manzanares MD Date Dictated: 06/23/151644 Date Transcribed: 06/23/151644 Crepe Laminator Operator: Signed Winnie Eid Start: 06-23-2015 End: 06-23-2015 Chest PA and Lateral Comments: See Note; NOTES: [facility] Imaging Services [address] [place] [address] Verdana 4d Chest PA and Lateral MR#: [id number] Acct: [id number] Name: KARLA FOURNIER Rep #: [id number] : 1955 F 59 From: Norberto Abrams DO PCP: Katelynn Manzanares MD Status: PRE SDC Study: Chest PA and Lateral Date of Exam: 06/23/15 Exam# [id number] Ordering Dr: Antony Payne MD STUDY: X-RAY [...] Norberto Abrams DO at 17:03 EST Tel [phone], Service support [phone], RAD/Chest PA and Lateral IMPRESSION: Hyperinflated lungs without acute cardiopulmonary disease or interval change. Electronically Signed: Norberto Abrams DO at 17:03 EST Tel [phone], Service support [phone], CC: Katelynn Manzanares MD; Antony Payne MD Crepe Laminator Operator: Signed Winnie Ragini Start: 06-23-2015 Antibody screen Winnie Eid Plan of Treatment Date Care Activity Detail Author Start: 11-21-2021 Procedure Education Eprescribed prescriptions (G8553) [facility]; [facility] Work Phone: Start: 11-21-2021 Provider Instructions for Treatment [facility]; [facility] Work Phone: Start: 11-21-2021 Urinalysis qual/semiquant except immunoassays URINALYSIS (14175) [facility]; [facility] Work Phone: Start: 11-21-2021 Urine albumin quantitative MICROALBUMIN: CREATININE RATIO (39493) AND (39904) [facility]; [facility] Work Phone: Start: 11-21-2021 Comprehensive metabolic panel METABOLIC PANEL, COMPREHENSIVE (62894) [facility]; [facility] Work Phone: Start: 11-21-2021 Lipid panel LIPID PANEL (30702) [facility]; [facility] Work Phone: Start: 11-21-2021 Blood count complete auto&auto difrntl wbc CBC W/AUTO DIFF WBC (79912) [facility]; [facility] Work Phone: Start: 11-21-2021 Assay of thyroid stimulating hormone tsh TSH (77676) [facility]; [facility] Work [...] 06-09-2021 Assay of osmolality urine OSMOLALITY URINE (45518) [facility]; [facility] Work Phone: Start: 06-09-2021 Assay of urine sodium SODIUM URINE (29090) [facility]; [facility] [...] Phone: Start: 04-22-2020 Lipid panel LIPID PANEL (93973) [facility] Work Phone: Start: 04-22-2020 TSH Qn TSH (64585) [facility] Work Phone: Start: 03-03-2019 Patient Education Common Cold *: upper respiratory infection [facility] Work Phone: Start: 03-03-2019 Procedure Education Eprescribed prescriptions (G8553) [facility] Work Phone: Start: 03-03-2019 Provider Instructions for Treatment Follow up if no improvement or if symptoms worsen [facility] Work Phone: Start: 03-03-2019 [employer] streptococcus group a Rapid Strep Test, Office (58812) [facility]; [facility] Work Phone: Payers Date Payer Category Payer Unknown [id number] 2015 Unknown [id number] 2014 Unknown [id number] 2006 Unknown [id number] 1955 Unknown [id number] Private Health Insurance [id number] Unknown Social History Date Type Detail Facility [...] AUTHOR AUTHOR'S MIGUEL BONEMERON 09/20/2018 [facility] FOR RECORDS PERTAINING TO PATIENTS WHO ARE [...] BE BASED ON THE PRIMARY CLINICAL RECORDS. [employer] provides no warranty or guarantee of the accuracy or completeness of information in this document.
== END 2023-07-17 16:40 | disposition home or self-care (01) ==
LOC: ED 20:46 → MS3 21:12
PROVIDERS: Admitting Provider Surgery; Emergency Provider Emergency Medicine; PCP Family Medicine; Visit Provider Surgery
PROC: 0DTJ4ZZ Resection of Appendix, Percutaneous Endoscopic Approach (ICD-10-PCS; CPT 44970; principal; 2023-07-16 21:45)
DX: K35.80 Unspecified acute appendicitis (principal); Z87.891 Personal history of nicotine dependence; I10 Essential (primary) hypertension; E03.9 Hypothyroidism, unspecified; Z79.899 Other long term (current) drug therapy; Z79.890 Hormone replacement therapy
CPT/HCPCS: 44970; 00840; 36415; 74177; 80048; 80053; 81001; 85025; 87070; 87075; 87205; 88304; 96361; 96365; 96366; 96375; 99221; 99283; J7030; J7050; Q9967; A4216; G0378; J2405

== ENCOUNTER → 2023-08-06 | Outpatient (CLI) | payer MEDICARE, OTHER, SELFPAY ==
--- NOTE | 2023-08-06 08:07 | RAD_ITS ---
STUDY: X-RAY - ESOPHAGUS (BARIUM SWALLOW) WITH FLUOROSCOPY REASON FOR EXAM: Female, 67 years old. DYSPHAGIA TECHNIQUE: 21 view(s) of the esophagus were obtained following swallowing of barium. FLUOROSCOPY TIME (if supplied): (30 seconds) minutes/seconds COMPARISON: None. FINDINGS: There is no demonstrated esophageal foreign body. 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 There is a small hiatal hernia with gastroesophageal reflux. The patient ingested a 12 mm tablet of barium. The tablet is trapped at the gastroesophageal junction. Normal visualized aortic arch and descending thoracic aorta. Normal visualized pulmonary parenchyma. Normal visualized osseous structures of the thorax. 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 The ingested 12 mm tablet of barium is trapped at the gastroesophageal junction at the site of the weblike stenosis. Electronically Signed: Rocky Lunsford MD at 10:58 EST ,
== END | disposition home or self-care (01) ==
LOC: RAD 08:07
PROVIDERS: PCP Family Medicine; Referring Provider Internal Medicine Gastroenterology; Visit Provider Internal Medicine Gastroenterology
DX: R13.10 Dysphagia, unspecified (principal)
CPT/HCPCS: 74221

== ENCOUNTER → 2023-10-09 | Outpatient (CLI) | payer MEDICARE, OTHER, SELFPAY ==
[2023-10-09 16:52] LABS: ALB/GLOB Ratio 1.1 RATIO (0.9-2.4); AST(SGOT) 19 U/L (15-37); Alanine Aminotransfer ALT/SGPT 23 U/L (13-56); Albumin, Serum 3.6 g/dL (3.2-5.0); Alkaline Phosphatase 61 U/L (45-117); Anion Gap 5 (5-15); BUN 12 mg/dL (7-18); BUN/Creat Ratio 15.2 RATIO (10-20); Calcium,Total 8.9 mg/dL (8.5-10.1); Chloride 97 mmol/L (98-107); Cholesterol 197 mg/dL (200); Creatinine, Serum 0.79 mg/dL (0.55-1.02); EST Glomerular Filtration Rate 77 mL/min (>60); Est Glom Filt Rate - Afr Amer 93 mL/min (>60); Globulin 3.2 g/dL (2.2-4.2); Glucose 80 mg/dL (74-106); High Density Lipoprotein 64 mg/dL; Potassium 4.4 mmol/L (3.5-5.1); Protein, Total 6.8 g/dL (6.4-8.2); Sodium Level 129 mmol/L (136-145); Thyroid Stim Hormone (TSH) 1.05 uIU/mL (0.358-3.74); Triglycerides 212 mg/dL; Very Low Density Lipoprotein 42 mg/dL (5-40)
== END | disposition home or self-care (01) ==
LOC: MTLAB 13:12
PROVIDERS: PCP Family Medicine; Referring Provider Family Medicine; Visit Provider Family Medicine
DX: E03.9 Hypothyroidism, unspecified (principal); I10 Essential (primary) hypertension
CPT/HCPCS: 36415; 80053; 80061; 84443

== ENCOUNTER → 2023-11-19 | Outpatient (CLI) | payer MEDICARE, OTHER, SELFPAY ==
--- NOTE | 2023-11-19 13:16 | BI_ITS ---
MAMMOGRAPHY - BILATERAL SCREENING REASON FOR EXAM: Female, 68 years old. Routine annual screening examination. PERTINENT HISTORY: Non-contributory. Bilateral breast implants. TECHNIQUE: Digital bilateral breast amy (3D mammographic acquisition) in the CC and MLO projections. 2-D mediolateral oblique (MLO) and craniocaudad (CC) views of both breasts were obtained. CAD: Full Field Digital Mammography with Computer Added Detection was performed. COMPARISON: Comparison is made with prior study dated October 12, 2022 and September 27, 2021. FINDINGS: Breast Composition: There are scattered areas of fibroglandular density. There are no dominant masses or suspicious calcifications. Stable benign-appearing bilateral axillary lymph nodes. Stable appearance of the bilateral breast implants with calcification along the anterior margin more prominent on the right side. No other significant abnormalities are identified. There has been no significant change since the prior study. BI/SCRN MAMM (CAD)W/AMY BILAT IMPRESSION: Stable bilateral screening mammogram. Yearly follow-up mammogram recommended. (A) ASSESSMENT CATEGORY: BIRADS Category 2: Benign. A letter regarding these results will be sent to the patient by the facility within 30 days. Approximately 10% of breast cancers are not detected by mammography. A normal mammogram should not delay biopsy of a clinically suspicious abnormality. [id number] Electronically Signed: Rocky Lunsford MD at 8:24 EDT ,
== END | disposition home or self-care (01) ==
LOC: OPBI 13:16
PROVIDERS: PCP Family Medicine; Referring Provider Family Medicine; Visit Provider Family Medicine
DX: Z12.31 Encounter for screening mammogram for malignant neoplasm of breast (principal)
CPT/HCPCS: 77063; 77067

== ENCOUNTER → 2024-02-13 | Outpatient (CLI) | payer MEDICARE, OTHER, SELFPAY ==
[2024-02-13 13:08] LABS: Anion Gap 9 (5-15); BUN 9 mg/dL (7-18); BUN/Creat Ratio 10.8 RATIO (10-20); Calcium,Total 9.4 mg/dL (8.5-10.1); Chloride 94 mmol/L (98-107); Creatinine, Serum 0.83 mg/dL (0.55-1.02); EST Glomerular Filtration Rate 73 mL/min (>60); Est Glom Filt Rate - Afr Amer 88 mL/min (>60); Glucose 80 mg/dL (74-106); Potassium 4.6 mmol/L (3.5-5.1); Sodium Level 127 mmol/L (136-145)
== END | disposition home or self-care (01) ==
LOC: MTLAB 11:05
PROVIDERS: PCP Family Medicine; Referring Provider Internal Medicine Nephrology; Visit Provider Internal Medicine Nephrology
DX: I10 Essential (primary) hypertension (principal)
CPT/HCPCS: 36415; 80048

== ENCOUNTER → 2024-03-20 | Outpatient (CLI) | payer MEDICARE, OTHER, SELFPAY ==
[2024-03-20 15:20] LABS: Anion Gap 6 (5-15); BUN 14 mg/dL (7-18); Calcium,Total 9.3 mg/dL (8.5-10.1); Chloride 98 mmol/L (98-107); Creatinine, Serum 0.93 mg/dL (0.55-1.02); EST Glomerular Filtration Rate 64 mL/min (>60); Est Glom Filt Rate - Afr Amer 77 mL/min (>60); Glucose 91 mg/dL (74-106); Potassium 4.8 mmol/L (3.5-5.1); Sodium Level 130 mmol/L (136-145)
== END | disposition home or self-care (01) ==
LOC: MTLAB 11:19
PROVIDERS: PCP Family Medicine; Referring Provider Internal Medicine Nephrology; Visit Provider Internal Medicine Nephrology
DX: E87.1 Hypo-osmolality and hyponatremia (principal)
CPT/HCPCS: 36415; 80048

== ENCOUNTER 2024-04-16 18:14 | Emergency (ER) | payer MEDICARE, OTHER, SELFPAY ==
[2024-04-16 18:14] VITALS: BP 181/86; PULSE 74; RESP 16; TEMP 36.3; O2SAT 100; BMI 25.5
--- NOTE | 2024-04-16 20:08 | ED.RN ---
called for pt at 2006 with no answer. was planning to bring in 2nd triage room for protocols.
--- OUTSIDE RECORDS SUMMARY | 2024-04-16 20:21 | XMS RPT_ITS | CCD ---
Author Organization [facility] Care Team Providers Care Garnishment Specialist Name Role Phone Winnie Cotter Attending Unavailable Rodney Manzanares Referring Unavailable Winnie Cotter Consulting Unavailable Winnie Cotter Unavailable Keith Bower Unavailable [facility] OFFICE, Jorge Silva Unavailable Adele Jacobson Unavailable [facility] Unavailable Petrona Sherman Unavailable Unavailable Unavailable Unavailable Marilynrb, Prabha Unavailable Unavailable Petrona Price Unavailable Unavailable Gravius, Tomeka Unavailable Unavailable MIGUELITO Hernandez Unavailable Unavailable Ragini DO Winnie Unavailable Keith Bower MD Unavailable [facility] OFFICE, Jorge Silva Unavailable Adele Jacobson Unavailable [facility] Unavailable [phone] Gravius CARD FILER, Tomeka Unavailable Unavailable Slarb 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, Prabha Unavailable Unavailable Unavailable Unavailable Jennifer Melara [...] Quantity: 20 {Tablet} Refills: 0 Ordered: 08-Oct-2007 MIGUELITO Hernandez LPN Start : 08-Oct-2007 End : 17-Nov-2008 Inactive acetaminophen 325 mg / HYDROcodone bitartrate 5 mg oral tablet (8 sources) Opioid Agonist Start: 06-20-2021 End: 07-20-2021 take 1 tablet by mouth every six hours HYDROcodone-Aceta minophen 5-325 MG Oral Tablet 1 (one) Tablet every 6 hours as needed for pain for 30 days Quantity: 28 {Tablet} Refills: 0 Ordered: 20-Jun-2021 Ragini LAZO Winnie Cotter DO Winnie Start : 20-Jun-2021 End : 20-Jul-2021 Inactive Comments: Medication taken as needed. Oarrs was reviewed, is ok. Comment on above: Medication taken as needed. Oarrs was reviewed, is ok. amoxicillin 875 mg / clavulanate 125 mg oral tablet (20 sources) Penicillin-class Antibacterial Start: 10-31-2016 End: 11-10-2016 take 1 tablet by mouth twice daily at mealtime Amoxicillin-Pot Clavulanate 875-125 MG Oral Tablet 1 (one) Tablet BID for 10 days Quantity: 20 {Tablet} Refills: 0 Ordered: 31-Oct-2016 Petrona Price Start : 31-Oct-2016 End : 10-Nov-2016 Inactive Comments: Take with food Comment on above: Take with food Biotin (20 sources) Biotin Active budesonide 0.032 mg/actuat metered dose nasal spray (20 sources) Corticosteroid Start: 08-14-2016 End: 10-31-2016 Rhinocort Allergy 32 MCG/ACT Nasal Suspension 2 (two) Puff daily for 0 days Quantity: 1 {QS} Refills: 0 Ordered: 31-Oct-2016 Prabha Ng LPN Start : 14-Aug-2016 End : 31-Oct-2016 Discontinued Calcium (20 sources) Phosphate Binder, Calcium Calcium Active Comments: With Vit D Comment on above: With Vit D ciprofloxacin 500 mg oral tablet (20 sources) Quinolone Antimicrobial Start: 11-17-2008 take 1 tablet by mouth twice daily CIPRO, 500MG (Oral Tablet) 1 Tablet BID for 0 days Quantity: 14 {Tablet} Refills: 0 Ordered: 27-Sep-2009 MIGUELITO Hernandez LPN Start : 17-Nov-2008 Inactive citalopram 20 mg oral tablet (20 sources) Serotonin Reuptake Inhibitor Start: 11-21-2021 End: 11-21-2021 take 1 tablet by mouth once daily CeleXA 20 MG Oral Tablet 1 Tablet daily for 0 days Quantity: 30 {Tablet} Refills: 6 Ordered: 21-Nov-2021 Winnie Cotter DO, DO, Kathleen Start : 21-Nov-2021 End : 21-Nov-2021 Discontinued Start: 10-19-2021 take 1 tablet by vivienne th once daily CeleXA 20 MG Oral Tablet 1 Tablet daily for 0 days Quantity: 30 {Tablet} Refills: 6 Ordered: 19-Oct-2021 Ragini DOWinnie DO, Kathleen Start : 19-Oct-2021 Active Start: 08-15-2021 take 1 tablet by vivienne th once daily CeleXA 20 MG Oral Tablet 1 Tablet daily for 0 days Quantity: 30 {Tablet} Refills: 0 Ordered: 15-Aug-2021 Winnie Cotter DO, DO, Kathleen Start : 15-Aug-2021 Active Start: 07-12-2021 take 1 tablet by vivienne th once daily CeleXA 20 MG Oral Tablet 1 Tablet daily for 0 days Quantity: 30 {Tablet} Refills: 0 Ordered: 12-Jul-2021 Ragini DOWinnie DO, Kathleen Start : 12-Jul-2021 Active Start: 12-03-2020 take 1 tablet by vivienne th once daily CeleXA 20 MG Oral Tablet 1 Tablet daily for 0 days Quantity: 30 {Tablet} Refills: 6 Ordered: 03-Dec-2020 Ragini DOWinnie DO, Kathleen Start : 03-Dec-2020 Active Start: 04-22-2020 take 1 tablet by vivienne th once daily CeleXA 20 MG Oral Tablet 1 Tablet daily for 0 days Quantity: 30 {Tablet} Refills: 6 Ordered: 22-Apr-2020 Tomeka Toledo CMA Start : 22-Apr-2020 Active Start: 11-27-2019 take 1 tablet by vivienne th once daily CeleXA 20 MG Oral Tablet 1 Tablet daily for 0 days Quantity: 30 {Tablet} Refills: 6 Ordered: 27-Nov-2019 Winnie Cotter DO, DO, Kathleen Start : 27-Nov-2019 Active Start: 10-21-2018 take 1 tablet by vivienne th once daily CeleXA 20 MG Oral Tablet 1 Tablet daily for 0 days Quantity: 30 {Tablet} Refills: 6 Ordered: 21-Oct-2018 Ragini DO Winnie RaginiWinnie luque DO Start : 21-Oct-2018 Active Start: 09-18-2018 take 1 tablet by vivienne th once daily CeleXA 20 MG Oral Tablet 1 Tablet daily for 0 days Quantity: 30 {Tablet} Refills: 6 Ordered: 18-Sep-2018 Ragini LAZOWinnie RaginiWinnie luque DO Start : 18-Sep-2018 Active DULoxetine 30 mg delayed release oral capsule (20 sources) Serotonin and Norepinephrine Reuptake Inhibitor Start: 08-16-2022 take 1 capsule by mouth once daily DULoxetine 30 mg oral capsule,delayed release (enteric coated) 1 (one) Capsule DR Part qd x 2 weeks, can increase to 60 qd after that for 0 days Quantity: 60 {Capsule} Refills: 0 Ordered: 16-Aug-2022 Winnie Cotter DO, DO, Kathleen Start : 16-Aug-2022 Active Start: 04-03-2022 take 1 capsule by [facility] once daily DULoxetine HCl 30 MG Oral Capsule Delayed Release Particles 1 (one) Capsule DR Part qd x 2 weeks, can increase to 60 qd after that for 0 days Quantity: 60 {Capsule} Refills: 3 Ordered: 03-Apr-2022 Winnie Cotter DO, DO, Kathleen Start : 03-Apr-2022 Active Start: 11-21-2021 take 1 capsule by [facility] once daily DULoxetine HCl 30 MG Oral Capsule Delayed Release Particles 1 (one) Capsule DR Part qd x 2 weeks, can increase to 60 qd after that for 0 days Quantity: 60 {Capsule} Refills: 2 Ordered: 21-Nov-2021 Winnie Cotter DO, DO, Kathleen Start : 21-Nov-2021 Active Start: 05-28-2017 End: 10-15-2017 DULoxetine HCl 60 MG Oral Ca psule Delayed Release Particles 1 (one) Capsule DR Part qd for 0 days Quantity: 30 {Capsule} Refills: 3 Ordered: 15-Oct-2017 Petrona Sherman RN Start : 28-May-2017 End : 15-Oct-2017 Inactive Comments: after finish the 30 dose x 2 weeks Start: 04-30-2017 End: 05-28-2017 Cymbalta 30 MG Oral Capsule Delayed Release Particles 1 (one) Capsule DR Part take one daily x 2 weeks may increase to 2 daiy for 0 days Quantity: 90 {Capsule} Refills: 0 Ordered: 28-May-2017 Winnie Cotter DO, DO, Kathleen Start : 30-Apr-2017 End : 28-May-2017 Inactive Start: 05-31-2015 End: 02-17-2016 take 1 capsule by mouth once daily DULoxetine HCl 30 MG Oral Capsule Delayed Release Particles 1 (one) Capsule DR Part Capsule DR Part qd x 2 weeks, can increase to 60 qd after that for 0 days Quantity: 28 {Capsule} Refills: 0 Ordered: 17-Feb-2016 Petrona Sherman RN Start : 31-May-2015 End : 17-Feb-2016 Inactive Comment on above: after finish the 30 dose x 2 weeks escitalopram 10 mg oral tablet (20 sources) Serotonin Reuptake Inhibitor Start: 4 End: 5 take 1 tablet by mouth once daily ESCITALOPRAM OXALATE, 10MG (Oral Tablet) 1 (one) Tablet Tablet daily for 0 days Quantity: 30 {Tablet} Refills: 0 Ordered: 17-May-2015 MIGUELITO Hernandez LPN Start : 25-Nov-2013 End : 17-May-2015 Inactive Start: 09-27-2009 End: 09-27-2009 take 1 tablet by mouth once daily LEXAPRO, 10MG (Oral Tablet) 1 Tablet QD for 0 days Quantity: 30 {Tablet} Refills: 6 Ordered: 27-Sep-2009 Rodney Manzanares MD Start : 27-Sep-2009 End : 27-Sep-2009 Discontinued esomeprazole 40 mg delayed release oral capsule (20 sources) Proton Pump Inhibitor Start: 04-29-2009 take 1 capsule by mouth once daily NEXIUM, 40MG (Oral Capsule Delayed Release) 1 (one) Capsule DR QD for 0 days Quantity: 30 {Capsule_DR} Refills: 2 Ordered: 27-Sep-2009 MIGUELITO Hernandez LPN Start : 29-Apr-2009 Inactive End: 08-26-2007 take 1 capsule by mouth once daily NEXIUM, 20MG (Oral Capsule Delayed Release) 1 QD for 0 days Refills: 0 Ordered: 26-Aug-2007 MIGUELITO Hernandez LPN End : 26-Aug-2007 Discontinued furosemide 20 mg oral tablet (4 sources) Loop Diuretic Start: 11-21-2021 take 1 tablet by mouth once daily in the morning Furosemide 20 MG Oral Tablet 1 (one) Tablet qam for 0 days Quantity: 30 {Tablet} Refills: 0 Ordered: 21-Nov-2021 Ragini DOWinnie DO, Kathleen Start : 21-Nov-2021 Active gabapentin 300 mg oral capsule (20 sources) Anti-epileptic Agent Start: 09-14-2014 End: 05-17-2015 NEURONTIN, 300MG (Oral Capsule) 1 (one) Capsule qhs for 5 days then bid for 0 days Quantity: 60 {Capsule} Refills: 0 Ordered: 17-May-2015 MIGUELITO Hernandez LPN Start : 14-Sep-2014 End : 17-May-2015 Inactive ibandronic acid 150 mg oral tablet (20 sources) Bisphosphonate Start: 11-19-2020 take 1 tablet by mouth every month Boniva 150 MG Oral Tablet 1 (one) Tablet q month for 0 days Quantity: 1 {Tablet} Refills: 6 Ordered: 19-Nov-2020 Winnie Cotter DO, DO, Kathleen Start : 19-Nov-2020 Active Start: 04-22-2020 take 1 tablet by vivienne th every month Boniva 150 MG Oral Tablet 1 (one) Tablet q month for 0 days Quantity: 1 {Tablet} Refills: 6 Ordered: 22-Apr-2020 Tomeka Toledo CMA Start : 22-Apr-2020 Active Start: 09-18-2019 take 1 tablet by vivienne th every month Boniva 150 MG Oral Tablet 1 (one) Tablet q month for 0 days Quantity: 1 {Tablet} Refills: 6 Ordered: 18-Sep-2019 Ragini DOWinnie DO, Kathleen Start : 18-Sep-2019 Active Start: 01-20-2019 take 1 tablet by vivienne th every month Boniva 150 MG Oral Tablet 1 (one) Tablet q month for 0 days Quantity: 1 {Tablet} Refills: 6 Ordered: 20-Jan-2019 Ragini DOGeriWinnieGeri Adams DOhleen Start : 20-Jan-2019 Active Start: 06-05-2018 take 1 tablet by vivienne th every month Boniva 150 MG Oral Tablet 1 (one) Tablet Tablet q month for 0 days Quantity: 1 {Tablet} Refills: 6 Ordered: 05-Jun-2018 Winnie Cotter DO, DO, Kathleen Start : 05-Jun-2018 Active ketorolac tromethamine 10 mg oral tablet (20 sources) Nonsteroidal Anti-inflammatory Drug, Cyclooxygenase Inhibitor Start: 02-16-2012 End: 01-20-2013 KETOROLAC TROMETHAMINE, 10MG (Oral Tablet) 1 Tablet q6 hrs x 48 hrs for 0 days Quantity: 8 {Tablet} Refills: 0 Ordered: 20-Jan-2013 Petrona Sherman RN Start : 16-Feb-2012 End : 20-Jan-2013 Inactive levothyroxine sodium 0.075 mg oral tablet (20 sources) l-Thyroxine Start: 12-07-2021 take 1 tablet by mouth once daily Synthroid 75 MCG Oral Tablet 1 Tablet daily for 0 days Quantity: 90 {Tablet} Refills: 1 Ordered: 07-Dec-2021 Winnie Cotter DO, DO, Kathleen Start : 07-Dec-2021 Active Start: 06-12-2021 take 1 tablet by vivienne th once daily Synthroid 75 MCG Oral Tablet 1 Tablet daily for 0 days Quantity: 90 {Tablet} Refills: 1 Ordered: 12-Jun-2021 Winnie Cotter DO, DO, Kathleen Start : 12-Jun-2021 Active Start: 10-07-2020 take 1 tablet by vivienne th once daily Synthroid 75 MCG Oral Tablet 1 Tablet daily for 0 days Quantity: 30 {Tablet} Refills: 3 Ordered: 07-Oct-2020 Winnie Cotter DO, DO, Kathleen Start : 07-Oct-2020 Active Start: 04-22-2020 take 1 tablet by vivienne th once daily Synthroid 75 MCG Oral Tablet 1 Tablet daily for 0 days Quantity: 30 {Tablet} Refills: 3 Ordered: 22-Apr-2020 Tomeka Toledo CMA Start : 22-Apr-2020 Active Start: 04-20-2020 take 1 tablet by vivienne th once daily Synthroid 75 MCG Oral Tablet 1 Tablet daily for 0 days Quantity: 30 {Tablet} Refills: 0 Ordered: 20-Apr-2020 Start : 20-Apr-2020 Active Comments: PATIENT NEEDS AN APPOINTMENT WITH DR. COTTER. SHE WILL NOT GET ANY REFILLS UNTIL SHE IS SEEN Start: 04-16-2020 take 1 tablet by vivienne th once daily Synthroid 75 MCG Oral Tablet 1 Tablet daily for 0 days Quantity: 30 {Tablet} Refills: 0 Ordered: 16-Apr-2020 Winnie Cotter DO, DO, Kathleen Start : 16-Apr-2020 Active Comments: PATIENT NEEDS AN APPOINTMENT WITH DR. COTTER. SHE WILL NOT GET ANY REFILLS UNTIL SHE IS SEEN Start: 03-15-2020 take 1 tablet by vivienne th once daily Synthroid 75 MCG Oral Tablet 1 Tablet daily for 0 days Quantity: 30 {Tablet} Refills: 0 Ordered: 15-Mar-2020 Winnie Cotter DO, DO, Kathleen Start : 15-Mar-2020 Active Comments: PATIENT NEEDS AN APPOINTMENT WITH DR. COTTER. SHE WILL NOT GET ANY REFILLS UNTIL SHE IS SEEN Start: 03-25-2019 take 1 tablet by vivienne th once daily Synthroid 75 MCG Oral Tablet 1 Tablet daily for 0 days Quantity: 90 {Tablet} Refills: 11 Ordered: 25-Mar-2019 Sierra Palacios CMA Start : 25-Mar-2019 Active Start: 03-13-2018 take 1 tablet by vivienne th once daily Synthroid 75 MCG Oral Tablet 1 Tablet daily for 0 days Quantity: 90 {Tablet} Refills: 11 Ordered: 13-Mar-2018 Sierra Palacios Start : 13-Mar-2018 Active Comment on above: PATIENT NEEDS AN MARYCARMEN OINTMENT WITH DR. COTTER. SHE WILL NOT GET ANY REFILLS UNTIL SHE IS SEEN lisinopril 10 mg oral tablet (8 sources) Angiotensin Converting Enzyme Inhibitor Start: 2 take 1 tablet by mouth twice daily Lisinopril 10 MG Oral Tablet 1 (one) Tablet two times daily for 0 days Quantity: 60 {Tablet} Refills: 3 Ordered: 29-Sep-2021 Winnie Cotter DO, DO, Kathleen Start : 29-Sep-2021 Active Start: 05-19-2021 take 1 tablet by vivienne th twice daily Lisinopril 10 MG Oral Tablet 1 (one) Tablet two times daily for 0 days Quantity: 60 {Tablet} Refills: 3 Ordered: 19-May-2021 Winnie Cotter DO, DO, Kathleen Start : 19-May-2021 Active metaxalone 800 mg oral tablet (20 sources) Start: 03-30-2016 End: 08-14-2016 take 1 tablet by mouth three times daily as needed Metaxalone 800 MG Oral Tablet 1 (one) Tablet Tablet tid prn for 0 days Quantity: 21 {Tablet} Refills: 0 Ordered: 14-Aug-2016 Slarb 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, Prabha Start : 30-Mar-2016 End : 14-Aug-2016 Discontinued Multivitamin preparation (20 sources) MULTIVITAMIN (Or al Liquid) for 0 days Refills: 0 Ordered: 21-Nov-2021 Gravius CARD FILER, Tomeka Active MULTIVITAMIN (Or al Liquid) for 0 days Refills: 0 Ordered: 17-Aug-2021 Gravius CARD FILER, Tomeka Active MULTIVITAMIN (Or al Liquid) for 0 days Refills: 0 Ordered: 19-May-2021 Slarb 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, Prabha Active MULTIVITAMIN (Or al Liquid) for 0 days Refills: 0 Ordered: 22-Apr-2020 Gravius CARD FILER, Tomeka Active MULTIVITAMIN (Or al Liquid) for 0 days Refills: 0 Ordered: 03-Mar-2019 Slarb 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, Prabha Active MULTIVITAMIN (Or al Liquid) for 0 days Refills: 0 Ordered: 18-Sep-2018 MIGUELITO Hernandez Active naproxen 500 mg oral tablet (20 sources) Nonsteroidal Anti-inflammatory Drug Start: 06-06-2021 take 1 tablet by mouth twice daily as needed Naprosyn 500 MG Oral Tablet 1 (one) Tablet BID PRN FOR BACK WITH FOOD for 0 days Quantity: 30 {Tablet} Refills: 0 Ordered: 06-Jun-2021 Slarb 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, Prabha Start : 06-Jun-2021 Active Start: 03-30-2014 End: 05-19-2021 take 2 capsules by mouth twice daily at mealtime Aleve 220 MG Oral Capsule 2 (two) Capsule Capsule bid for 0 days Quantity: 30 {Capsule} Refills: 0 Ordered: 19-May-2021 Slarb 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, Prabha Start : 30-Mar-2014 End : 19-May-2021 Inactive Comments: with food Comment on above: with food oseltamivir 75 mg oral capsule (20 sources) Neuraminidase Inhibitor Start: 8 End: 9 take 1 capsule by mouth twice daily TAMIFLU, 75MG (Oral Capsule) Capsule BID for 0 days Quantity: 10 {Capsule} Refills: 0 Ordered: 08-Oct-2007 MIGUELITO Hernandez LPN Start : 08-Oct-2007 End : 17-Nov-2008 Inactive predniSONE 20 mg oral tablet (20 sources) Start: 2 End: 2 take 1 tablet by mouth twice daily, then take 1 tablet by mouth once daily predniSONE 20 MG Oral Tablet 1 (one) Tablet uad for 6 days Quantity: 9 {Tablet} Refills: 0 Ordered: 20-Jun-2021 Jennifer Melara LPN Start : 20-Jun-2021 End : 26-Jun-2021 Inactive Comments: Take 1 tab bid x 3 days, then 1 tab qd x 3 days Start: 03-30-2016 End: 05-08-2016 PredniSONE 20 MG Oral Tablet 1 (one) Tablet bid for 2days then qd for 4days for 0 days Quantity: 8 {Tablet} Refills: 0 Ordered: 08-May-2016 Petrona Sherman RN Start : 30-Mar-2016 End : 08-May-2016 Inactive Start: 09-14-2014 End: 05-17-2015 PREDNISONE, 20MG (Oral Table t) 1 (one) Tablet bid with food for 2 days then qd for 4 days for 0 days Quantity: 8 {Tablet} Refills: 0 Ordered: 17-May-2015 MIGUELITO Hernandez LPN Start : 14-Sep-2014 End : 17-May-2015 Inactive Comment on above: Take 1 tab bid x 3 d ays, then 1 tab qd x 3 days sulfamethoxazole 800 mg / trimethoprim 160 mg oral tablet (20 sources) Dihydrofolate Reductase Inhibitor Antibacterial, Sulfonamide Antimicrobial Start: 02-13-20 12 End: 02-20-20 12 take 1 tablet by mouth twice daily BACTRIM DS, 800-160MG (Oral Tablet) 1 Tablet bid for 7 days Quantity: 14 {Tablet} Refills: 0 Ordered: 13-Feb-2012 Tita Vargas Start : 13-Feb-2012 End : 20-Feb-2012 Inactive tamsulosin hydrochloride 0.4 mg oral capsule (20 sources) alpha-Adrenergic Jessenia Start: 02-16-20 12 End: 02-26-20 12 take 1 capsule by mouth once daily at bedtime FLOMAX, 0.4MG (Oral Capsule) 1 Capsule qhs for 10 days Quantity: 10 {Capsule} Refills: 0 Ordered: 16-Feb-2012 Tita Vargas Start : 16-Feb-2012 End : 26-Feb-2012 Inactive Tylenol as needed (6 sources) Tylenol as needed Active varenicline 0.5 mg oral tablet (20 sources) Partial Cholinergic Nicotinic Agonist Start: 08-26-19 08 End: 11-18-19 09 CHANTIX STARTING MONTH AILIN, 0.5 MG X 11 &1 MG X 42 (Oral Miscellaneous) Misc BID for 0 days Quantity: 60 {Misc} Refills: 0 Ordered: 26-Aug-2007 MIGUELITO Hernandez LPN Start : 26-Aug-2007 End : 17-Nov-2008 Inactive Start: 08-26-2007 End: 11-17-2008 take 1 tablet by mouth twice daily CHANTIX, 1MG (Oral Tablet) Tablet BID for 0 days Quantity: 60 {Tablet} Refills: 1 Ordered: 26-Aug-2007 MIGUELITO Hernandez LPN Start : 26-Aug-2007 End : 17-Nov-2008 Inactive Comments: after starter ailin Comment on above: after starter ailin Vitamin D (20 sources) vitamin d daily Active Problems Active Problems Problem Classification Problem Date Documented Date Episodic/Chronic Abdominal hernia (20 sources) Diaphragmatic hernia; Translations: [Diaphragmatic hernia without mention of obstruction or gangrene] Resolved: 02-10-2013 05-26-2015 Episodic Comment on above: Dr. Dorantes Abdominal pain (20 sources) Epigastric pain; Translations: [Epigastric pain] Resolved: 08-26-2007 02-10-2013 Episodic Comment on above: on PPI Anxiety disorders (20 sources) Anxiety; Translations: [Acute stress disorder] 10-21-2018 Chronic Comment on above: stable Calculus of urinary tract (20 sources) Calcium renal calculus ; Translations: [Calcium kidney stone] Resolved: 05-17-2015 05-17-2015 Episodic Cardiac dysrhythmias (20 sources) Palpitations; Translations: [Tachyarrhythmia ] Resolved: 02-17-2016 05-08-2016 Episodic E Codes: Fall (12 sources) Fall; Translations: [Fall] Resolved: 11-21-2021 06-20-2021 Episodic Esophageal disorders (20 sources) Gastroesophageal reflux disease; Translations: [GERD (gastroesophageal reflux disease)] Resolved: 05-17-2015 05-17-2015 Chronic Essential hypertension (20 sources) Hypertensive disorder; Translations: [Hypertension] 06-20-2021 Chronic Comment on above: on lasix to counter soduim rx Fever of unknown origin (20 sources) Fever; Translations: [Fever] Resolved: 09-27-2009 07-29-2015 Episodic Fluid and electrolyte disorders (20 sources) Hyponatremia; Translations: [Hyponatremia] Resolved: 05-17-2015 05-17-2015 Episodic Comment on above: recheck good and ser um osmol. cureently drinking 1 92oz so will try decreasing water first to 90-95 oz and ravindra na level Genitourinary symptoms and ill-defined conditions (20 sources) Blood in urine; Translations: [Dysuria] Resolved: 02-10-2013 05-05-2015 Episodic Comment on above: ? kidney stone with Rt flank pain blood moderate---hannah l recheck after treat Headache; including migraine (16 sources) Headache; Translations: [Headache] 06-20-2021 Episodic Immunizations and screening for infectious disease (20 sources) Exposure to streptococcal pharyngitis; Translations: [Need for prophylactic vaccination and inoculation against influenza] Resolved: 04-22-2020 10-21-2018 Episodic Impulse control disorders, NEC (6 sources) Psychogenic polydipsia Chronic Malaise and fatigue (20 sources) Fatigue; Translations: [Fatigue] Resolved: 04-22-2020 10-21-2018 Episodic Menopausal disorders (20 sources) Menopausal flushing; Translations: [Hot flashes] Resolved: 02-17-2016 05-08-2016 Chronic Mood disorders (20 sources) Depression; Translations: [Depressive disorder] Resolved: 05-17-2015 05-17-2015 Chronic Comment on above: right now doing well not on meds. Neoplasms of unspecified nature or uncertain behavior (20 sources) Neoplasm of uncertain behavior of skin; Translations: [Neoplasm of uncertain behavior of skin] Resolved: 05-17-2015 05-17-2015 Episodic Comment on above: right cheek think SK not surewent to [facility] had removed fall 2014 Nonspecific chest pain (20 sources) Chest pain; Translations: [Atypical chest pain] Resolved: 04-22-2020 10-21-2018 Episodic Comment on above: 8-13 stress negative . sound atypical and stress related will check EKG today if worsen or SOB to ER treat muscle and anxiety Other bone disease and musculoskeletal deformities (20 sources) Osteopenia; Translations: [Osteopenia of spine] 10-21-2018 Episodic Other connective tissue disease (20 sources) Muscle pain; Translations: [Myalgia] Resolved: 04-22-2020 10-21-2018 Episodic Other connective tissue disease (20 sources) Spasm; Translations: [Muscle spasm] Resolved: 05-08-2016 05-08-2016 Episodic Other connective tissue disease (14 sources) Impingement syndrome of left shoulder region; Translations: [Shoulder impingement, left] 04-22-2020 Episodic Other ear and sense organ disorders (20 sources) Otalgia; Translations: [Earache] Resolved: 10-15-2017 10-15-2017 Episodic Other ear and sense organ disorders (12 sources) Tinnitus of left ear; Translations: [Ringing in ears, left] 04-22-2020 Episodic Other fractures (16 sources) Compression fracture of thoracic vertebra, nontraumatic; Translations: [Compression fracture of thoracic spine, non-traumatic] Resolved: 11-21-2021 04-22-2020 Episodic Comment on above: acute based on mri acute based on mri -- physical therapy and no furter pain =- healed Other nervous system disorders (20 sources) Numbness of upper limb; Translations: [Left arm numbness] Resolved: 05-17-2015 05-17-2015 Episodic Other non-traumatic joint disorders (20 sources) Shoulder pain; Translations: [Acute pain of left shoulder] Resolved: 05-08-2016 05-08-2016 Episodic Other non-traumatic joint disorders (12 sources) Hip pain; Translations: [Hip pain, left] 06-20-2021 Episodic Other nutritional; endocrine; and metabolic disorders (10 sources) Psychogenic polydipsia; 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 will just monitor tsh at times. no signs and symptoms now. still under stress. scope 2017 seeing nephro tomoor ow 08/17 seeing nephro / stil l managing- due to water intoxification and meds?? Other upper respiratory disease (20 sources) Pain in throat Episodic Other upper respiratory infections (20 sources) Sore throat symptom; Translations: [Viral upper respiratory tract infection] 10-21-2018 Episodic Otitis media and related conditions (12 sources) Dysfunction of bilateral eustachian tubes; Translations: [Eustachian tube dysfunction, bilateral] Resolved: 10-15-2017 10-15-2017 Episodic Prolapse of female genital organs (20 sources) Uterine prolapse; Translations: [Uterine prolapse] Resolved: 02-17-2016 05-08-2016 Chronic Comment on above: including bladder, i s scheduled with Dr. Harden 2015 for hysterectomy and bladder repair Residual codes; unclassified (20 sources) Generalized aches and pains; Translations: [Body aches] Resolved: 11-21-2021 10-21-2018 Episodic Residual codes; unclassified (20 sources) FH: Musculoskeletal disease; Translations: [Family history of other musculoskeletal diseases] Resolved: 12-03-2008 02-10-2013 Episodic Comment on above: MS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 [Catalytic activity/Vol] 16 [iU]/L Normal 0-40 [facility] Work Phone: Comment on above: PATIENT NOT FASTINGP ERFORMED BY: CB [facility] Hnlobt2497 [address] RoadDublin [place] [id number] AST [Catalytic activity/Vol] 16 U/L Normal 0-40 [facility]; [facility] Work Phone: Comment on above: PATIENT NOT FASTINGP ERFORMED BY: CB [facility] Cshbji2991 [address] RoadDublin [place] [id number] Bilirubin [Mass/Vol] 0.3 mg/dL Normal 0.0-1.2 [facility] Work Phone: Comment on above: PATIENT NOT FASTINGP ERFORMED BY: CB [facility] Lhwoxv4010 [address] RoadDublin [place] [id number] Calcium [Mass/Vol] 8.9 mg/dL Normal 8.7-10.3 [facility] Internal Medicine Work Phone: Comment on above: PATIENT NOT FASTINGP ERFORMED BY: CB [facility] Wvhalm1575 [address] RoadDublin [place] [id number] Chloride [Moles/Vol] 91 mmol/L Abnormal 96-106 [facility] Work Phone: Comment on above: PATIENT NOT FASTINGP ERFORMED BY: CB [facility] Xvdugj6982 [address] RoadDublin [place] [id number] CO2 [Moles/Vol] 24 mmol/L Normal 18-29 [facility] Internal Medicine Work Phone: Comment on above: PATIENT NOT FASTINGP ERFORMED BY: CB [facility] Ynqafw3777 [address] RoadDublin [place] [id number] Creatinine [Mass/Vol] 0.76 mg/dL Normal 0.57-1.00 [facility] Internal Medicine Work Phone: Comment on above: PATIENT NOT FASTINGP ERFORMED BY: CB [facility] Kxsqbg8110 [address] RoadDublin [place] [id number] GFR/1.73 sq M predicted among blacks CKD-EPI (S/P/Bld) [Vol rate/Area] 99 mL/min/1.73 Normal [facility] Work Phone: Comment on above: PATIENT NOT FASTINGP ERFORMED BY: CB [facility] Qtwoum6435 Marcel[address] RoadDublin [place] [id number] GFR/1.73 sq M predicted among non-blacks CKD-EPI (S/P/Bld) [Vol rate/Area] 86 mL/min/1.73 Normal [facility] Work Phone: Comment on above: PATIENT NOT FASTINGP ERFORMED BY: CB [facility] Qmsfka3885 [address] RoadDublin [place] [id number] Globulin (S) [Mass/Vol] 2.4 g/dL Normal 1.5-4.5 [facility] Work Phone: Comment on above: PATIENT NOT FASTINGP ERFORMED BY: CB [facility] Xtyclh9109 [address] RoadDublin [place] [id number] Glucose [Mass/Vol] 87 mg/dL Normal 65-99 [facility] Internal Medicine Work Phone: Comment on above: PATIENT NOT FASTINGP ERFORMED BY: CB [facility] Musulw8740 [address] RoadDublin [place] [id number] Potassium [Moles/Vol] 4.1 mmol/L Normal 3.5-5.2 [facility] Work Phone: Comment on above: PATIENT NOT FASTINGP ERFORMED BY: CB [facility] Pohdop7232 [address] RoadDublin [place] [id number] Protein [Mass/Vol] 6.7 g/dL Normal 6.0-8.5 [facility] Internal Medicine Work Phone: Comment on above: PATIENT NOT FASTINGP ERFORMED BY: CB [facility] Qlhzlq0365 Marcel[address] RoadDublin [place] [id number] Sodium [Moles/Vol] 132 mmol/L Abnormal 134-144 [facility] Internal Medicine Work Phone: Comment on above: PATIENT NOT FASTINGP ERFORMED BY: CB [facility] Vdgprs0931 [address] RoadDublin [place] [id number] Urea nitrogen [Mass/Vol] 10 mg/dL Normal 8-27 [facility] Work Phone: Comment on above: PATIENT NOT FASTINGP ERFORMED BY: CB [facility] Ydrnth3119 [address] RoadDublin [place] [id number] Urea nitrogen/Creatinine [Mass ratio] 13 mg/mg Normal 12-28 [facility] Work Phone: Comment on above: PATIENT NOT FASTINGP ERFORMED BY: SERGE [facility] Wviwri4147 [address] RoadDublin [place] [id number] RHEUMATOID FACTOR-QUANT (864 31)Ordered By: Hair Cutter on 05-02-2017 Rheumatoid factor Qn 10.3 {IU/mL} Normal 0.0-13.9 [facility] Work Phone: Comment on above: PATIENT NOT FASTINGP ERFORMED BY: CB [facility] Noprmk7917 [address] RoadDublin [place] [id number] Rheumatoid factor Qn 10.3 [IU]/mL Normal 0.0-13.9 [facility]; [facility] Work Phone: Comment on above: PATIENT NOT FASTINGP ERFORMED BY: SERGE [facility] Bjtcop9361 Marcel[address] RoadDublin [place] [id number] SED RATE ERYTHROCYTE ([id number]) Ordered By: Hair Cutter on 05-02-2017 ESR (Bld) [Velocity] 3 mm/h Normal 0-40 [facility] Work Phone: Comment on above: PATIENT NOT FASTINGP ERFORMED BY: SERGE [facility] Iwhdtp9437 [address] RoadDublin [place] [id number] TSH (47756)Ordered By: Chuchoe m Magnet Placer on 05-02-2017 TSH Qn 1.080 {uIU/mL} Normal 0.450-4.500 [facility] Internal Medicine Work Phone: Comment on above: PATIENT NOT FASTINGP ERFORMED BY: CB [facility] Nkjeuu2969 [address] RoadDublin [place] [id number] VITAMIN B-12 (CYANOCOBALAMIN ) (88140)Ordered By: Hair Cutter on 05-02-2017 Cobalamin (Vitamin B12) [Mass/Vol] 908 pg/mL Normal 211-946 [facility] Work Phone: Comment on above: PATIENT NOT FASTINGP ERFORMED BY: SERGE [facility] Cmpxxy4739 [address] RoadDublin [place] [id number] Rapid Strep Test, Office (09 [phone])on 10-31-2016 S. pyogenes Ag EIA Ql (Throat) Negative Normal [facility]; [facility] Work Phone: S. pyogenes Ag IA Ql (Unsp spec) Negative Normal [facility] Work Phone: THROAT CULTURE ([id number])Ordere d By: Hair Cutter on 10-31-2016 Bacteria identified Respiratory culture Nom (Unsp spec) RRF Normal [facility] Work Phone: Comment on above: Routine respiratory rahul PATIENT NOT FASTINGP ERFORMED BY: [facility] Hgunrn6973 Marcelo JulepNovant Health [facility] [id number] Information: SRC:TH Bacteria identified Respiratory culture Nom (Unsp spec) Final report Normal [facility] Work Phone: Comment on above: PATIENT NOT FASTINGP ERFORMED BY: [facility] LabPolatisrp Ffpmjc7686 Marcelo JulepNovant Health [facility] [id number] Information: SRC:TH Basic Metabolic Profile (BMP )Ordered By: Hair Cutter on 08-08-2016 Basic metabolic 2000 panel 84 mg/dL Normal 70-110 [facility] Work Phone: Comment on above: [facility] [address] [place], [place], [phone] Basic metabolic 2000 panel 131 mmol/L Abnormal 136-145 [facility] Work Phone: Comment on above: [facility] spital [address] [place], [place], [phone] Basic metabolic 2000 panel 29.0 mmol/L Normal 21.0-32.0 [facility] Work Phone: Comment on above: [facility] [address]exv[address] [place], [place], [address] Basic metabolic 2000 panel 13 mg/dL Normal 7-18 [facility] Work Phone: Comment on above: [facility] [address] [place], [place], [phone] Basic metabolic 2000 panel 0.73 mg/dL Normal 0.55-1.02 [facility] Work Phone: Comment on above: The validity of the calculated GFR AND GFRAA in patients over70 years has not been determined. Clinical correlation isessential. [facility] [address] [place], [place], [address] Basic metabolic 2000 panel 87 mL/min Normal [facility] Work Phone: Comment on above: Non- GFR Calc [facility] [address] [place], [address] Basic metabolic 2000 panel 105 mL/min Normal [facility] Work Phone: Comment on above: GFR Calc [facility] Mg[address] [place], [place], [phone] Basic metabolic 2000 panel 17.9 {RATIO} Normal 10-20 [facility] Work Phone: Comment on above: [facility] [address] [place], [place], [address] Basic metabolic 2000 panel 8.5 mg/dL Normal 8.5-10.1 [facility] Work Phone: Comment on above: [facility] [address] [place], [place], [phone] Basic metabolic 2000 panel 4.1 mmol/L Normal 3.5-5.1 [facility] Work Phone: Comment on above: [facility] [address] [place], [address] Basic metabolic 2000 panel 93 mmol/L Abnormal 98-107 [facility] Work Phone: Comment on above: [facility] [address] [place], [place], [address] Basic metabolic 2000 panel 9 1 Normal 5-15 [facility] Work Phone: Comment on above: [facility] [address] [place], [place], [address] CBC-Complete Blood Cnt No Di ffOrdered By: Hair Cutter on 08-08-2016 Erythrocyte distribution width (RBC) [Ratio] 12.5 % Normal 11.6-14.6 [facility] Work Phone: Comment on above: [facility] [address] [place], [address] Hematocrit (Bld) [Volume fraction] 35.3 % Abnormal 37-47 [facility] Work Phone: Comment on above: [facility] [address] [place], [address] Hemoglobin (Bld) [Mass/Vol] 11.8 g/dL Abnormal 12.0-15.0 [facility] Work Phone: Comment on above: [facility] [address] [place], [address] MCH (RBC) [Entitic mass] 31.4 pg Normal 27.0-32.0 [facility] Work Phone: Comment on above: [facility] [address] [place], [address] MCHC (RBC) [Mass/Vol] 33.4 {g/gl} Normal 32-36 [facility] Work Phone: Comment on above: [facility] [address] [place], [address] MCV (RBC) [Entitic vol] 93.9 fL Normal 81-99 [facility] Work Phone: Comment on above: [facility] [address] [place], [address] Platelet mean volume (Bld) [Entitic vol] 7.8 fL Normal 6.2-12.0 [facility] Work Phone: Comment on above: [facility] [address] [place], [address] Platelets (Bld) [#/Vol] 321 10*3/uL Normal 150-450 [facility] Internal Medicine Work Phone: Comment on above: [facility] [address] [place], [address] RBC (Bld) [#/Vol] 3.76 {M/mm3} Abnormal 4.2-5.4 [facility] Internal Medicine Work Phone: Comment on above: [facility] [address] [place], [address] WBC (Bld) [#/Vol] 5.8 10*3/uL Normal 4.4-11.0 [facility] Internal Medicine Work Phone: Comment on above: [facility] [address] [place], [address] CBC-Complete Blood Cnt No Diff 41.5 fL Normal 35.1-43.9 [facility] Internal Medicine Work Phone: Comment on above: [place] [address] [place], [address] T3, FREE (TRIDOTHYRONINE) (2 2813)Ordered By: Hair Cutter on 02-17-2016 Free T3 [Mass/Vol] 2.3 pg/mL Normal 2.0-4.4 [facility] Internal Medicine Work Phone: Comment on above: PERFORMED BY: [facility] [id number] T4, FREE (THYROXINE) (19662) Ordered By: Hair Cutter on 02-17-2016 Free T4 [Mass/Vol] 1.48 ng/dL Normal 0.82-1.77 [facility] Internal Medicine Work Phone: Comment on above: PERFORMED BY: [employer] Pnzuim9191 [facility] [id number] Information: [id number] TSH (69533)Ordered By: Yandel diggs Magnet Placer on 02-17-2016 TSH Qn 2.380 {uIU/mL} Normal 0.450-4.500 [facility] Internal Medicine Work Phone: Comment on above: PERFORMED BY: Fusebill Mindi Kilatz3304 Davian StroudNovant Health [facility] [id number] ,UrineOrdered By: Vinita ystem Magnet Placer on 06-30-2015 Beta HCG ( test) Ql (U) Negative Normal [facility] Work Phone: Comment on above: Very dilute urine sp ecimens, as indicated by a low specificgravity, may not contain sales representative public [employer] levels of hCG.If is still suspected, a first morning urinespecimen should be collected 48 hours later and tested. [facility] [address] [place], [address] CBC-Complete Blood Cnt No Di ffOrdered By: Hair Cutter on 06-23-2015 Erythrocyte distribution width (RBC) [Ratio] 13.2 % Normal 11.6-14.6 [facility] Work Phone: Comment on above: [facility] [address] [place], [address] Hematocrit (Bld) [Volume fraction] 38.5 % Normal 37-47 [facility] Work Phone: Comment on above: [facility] [address] [place], [address] Hemoglobin (Bld) [Mass/Vol] 13.1 g/dL Normal 12.0-15.0 [facility] Work Phone: Comment on above: [facility] [address] [place], [address] MCH (RBC) [Entitic mass] 32.0 pg Normal 27.0-32.0 [facility] Work Phone: Comment on above: [facility] [address] [place], [address] MCHC (RBC) [Mass/Vol] 34.0 {g/gl} Normal 32-36 [facility] Work Phone: Comment on above: [facility] [address] [place], [address] MCV (RBC) [Entitic vol] 93.9 fL Normal 81-99 [facility] Work Phone: Comment on above: [facility] [address] [place], [address] Platelet mean volume (Bld) [Entitic vol] 7.8 fL Normal 6.2-12.0 [facility] Work Phone: Comment on above: [facility] [address] [place], [address] Platelets (Bld) [#/Vol] 313 10*3/uL Normal 150-450 [facility] Work Phone: Comment on above: [facility] [address] [place], [address](753) RBC (Bld) [#/Vol] 4.10 {M/mm3} Abnormal 4.2-5.4 [facility] Internal Medicine Work Phone: Comment on above: [facility] [address] [place], [address] WBC (Bld) [#/Vol] 5.2 10*3/uL Normal 4.4-11.0 [facility] Internal Medicine Work Phone: Comment on above: [facility] [address] [place], [address] CBC-Complete Blood Cnt No Diff 45.1 fL Abnormal 35.1-43.9 [facility] Work Phone: Comment on above: [facility] [address] [place], [address] Comprehensive Metabolic Prof ilOrdered By: Hair Cutter on 06-23-2015 Comprehensive metabolic 2000 panel 98 mmol/L Normal 98-107 [facility] Work Phone: Comment on above: [facility] [address] [place], [address] Comprehensive metabolic 2000 panel 76 mL/min Normal [facility] Work Phone: Comment on above: Non- GFR Calc [facility] [address] [place], [address] Comprehensive metabolic 2000 panel 72 U/L Normal 50-136 [facility] Work Phone: Comment on above: [facility] [address] [place], [place], [phone] Comprehensive metabolic 2000 panel 0.82 mg/dL Normal 0.55-1.20 [facility] Work Phone: Comment on above: The validity of the calculated GFR AND GFRAA in patients over70 years has not been determined. Clinical correlation isessential. [facility] [address] [place], [place], [address] Comprehensive metabolic 2000 panel 8.6 mg/dL Normal 8.5-10.1 [facility] Work Phone: Comment on above: [facility] [address] [place], [place], [address] Comprehensive metabolic 2000 panel 14 mg/dL Normal 7-18 [facility] Work Phone: Comment on above: [facility] [address] [place], [address] Comprehensive metabolic 2000 panel 1.0 {RATIO} Normal 0.9-2.4 [facility] Work Phone: Comment on above: [facility] [address] [place], [place], [phone] Comprehensive metabolic 2000 panel 3.8 g/dL Abnormal 2.3-3.5 [facility] Work Phone: Comment on above: [facility] [address] [place], [place], [address] Comprehensive metabolic 2000 panel 0.30 mg/dL Normal 0.20-1.00 [facility] Work Phone: Comment on above: [facility] rosatal [address] [place], [place], [phone] Comprehensive metabolic 2000 panel 3.9 g/dL Normal 3.4-5.0 [facility] Work Phone: Comment on above: [facility] spital [address] [place], [place], [address] Comprehensive metabolic 2000 panel 1 1 Abnormal 5-15 [facility] Work Phone: Comment on above: [facility] [address] [place], [place], [address] Comprehensive metabolic 2000 panel 23 U/L Normal 12-78 [facility] Work Phone: Comment on above: [facility] [address] [place], [place], [address] Comprehensive metabolic 2000 panel 7.7 g/dL Normal 6.4-8.2 [facility] Work Phone: Comment on above: [facility] [address] [place], [place], [address] Comprehensive metabolic 2000 panel 17.0 {RATIO} Normal 10-20 [facility] Work Phone: Comment on above: [facility] [address] [place], [address] Comprehensive metabolic 2000 panel 91 mL/min Normal [facility] Work Phone: Comment on above: GFR Calc [facility] [address] [place], [address] Comprehensive metabolic 2000 panel 129 mmol/L Abnormal 136-145 [facility] Work Phone: Comment on above: [facility] spital [address] [place], [place], [address] Comprehensive metabolic 2000 panel 91 mg/dL Normal 70-110 [facility] Work Phone: Comment on above: [facility] [address] [place], [place], [phone] Comprehensive metabolic 2000 panel 30.0 mmol/L Normal 21.0-32.0 [facility] Work Phone: Comment on above: [facility] [address] [place], [place], [address] Comprehensive metabolic 2000 panel 4.0 mmol/L Normal 3.5-5.1 [facility] Work Phone: Comment on above: [facility] [address] [place], [place], [address] Comprehensive metabolic 2000 panel 17 U/L Normal 15-37 [facility] Work Phone: Comment on above: [facility] [address] [place], [place], [address] Partial Thromboplast TimeOrd ered By: Hair Cutter on 06-23-2015 aPTT Coag (PPP) [Time] 28.1 s Normal 24.1-36.2 [facility] Work Phone: Comment on above: [facility] [address] [place], [place], [address] ,Serum,hCG Quali.Or dered By: Hair Cutter on 06-23-2015 ,Serum,hCG Quali. 1 m[iU]/mL Normal [facility] Work Phone: Comment on above: [facility] [address] [place], [place], [phone] ,Serum,hCG Quali. Negative Normal 0-9 Nonpreg [facility] Work Phone: Comment on above: [facility] [address] [place], [place], [address] Prothrombin Time w/INROrdere d By: Hair Cutter on 06-23-2015 INR Coag (PPP) [Relative time] 0.8 {INR} Normal [facility] Work Phone: Comment on above: [facility] [address] [place], [address] PT Coag (PPP) [Time] 11.4 s Abnormal 11.7-14.9 [facility] Work Phone: Comment on above: [facility]fun[facility]o [address] [place], [phone] Type AND ScreenOrdered By: S ystem Magnet Placer on 06-23-2015 ABO and Rh group Nom (Bld) B POSITIVE Normal [facility] Work Phone: Comment on above: Surgery Date: Hx of Preganancy in last 3 Months NoEver experience any problems with transfusion(s)? NHx of Transfusion in last 3 Months NReason for Type AND Screen/Red Cells: SURGERYSURGICAL PROCEDURE: [facility] [address] [place], [id number] CALCIFEDIOL (30920)Ordered B y: Hair Cutter on 05-31-2015 25-Hydroxyvitamin D2+25-Hydroxyvitami n D3 [Mass/Vol] 33.1 ng/mL Normal 30.0-100.0 [facility] Work Phone: Comment on above: Vitamin D deficiency has been defined by the [place] [employer] and an Endocrine Society practice guideline as alevel of serum 25-OH vitamin D less than 20 ng/mL (1,2).The Endocrine Society went on to further define vitamin Dinsufficiency as a level between 21 and 29 ng/mL (2).1. IOM ([place] [employer]). 2010. Dietary reference intakes for calcium and D. [place]: The National Academies Press.2. Kristi MF, Se [place], Sonia MCLAUGHLIN, et al. Evaluation, treatment, and prevention of vitamin D deficiency: an Endocrine Society clinical practice guideline. JCEM. 2010; 96(7):1911-30. PATIENT NOT FASTINGP ERFORMED BY: [facility]6370 [facility] [id number] Metabolic Panel, Comprehensi ve (36783)Ordered By: Hair Cutter on 05-31-2015 Albumin [Mass/Vol] 4.7 g/dL Normal 3.5-5.5 [facility] Internal Medicine Work Phone: Comment on above: PATIENT NOT FASTINGP ERFORMED BY: CB [facility] Ndrcta4038 [facility] [facility] [place] [id number] Information: [id number] Albumin/Globulin [Mass ratio] 1.7 {ratio} Normal 1.1-2.5 [facility] Work Phone: Comment on above: PATIENT NOT FASTINGP ERFORMED BY: CB [facility] Vhsfac[address] [facility] [id number] Information: [id number],[id number] ALP [Catalytic activity/Vol] 66 [iU]/L Normal 39-117 [facility] Work Phone: Comment on above: PATIENT NOT FASTINGP ERFORMED BY: CB [facility] Pzqxir[address] [facility] [id number] Information: [id number] ALP [Catalytic activity/Vol] 66 U/L Normal 39-117 [facility]; [facility] Work Phone: Comment on above: PATIENT NOT FASTINGP ERFORMED BY: CB [facility] Qznasx9[address] [facility] [id number] Information: [id number] ALT [Catalytic activity/Vol] 11 [iU]/L Normal 0-32 [facility] Work Phone: Comment on above: PATIENT NOT FASTINGP ERFORMED BY: CB [facility] Dyutcy1012 Marcelo RoadAtrium Health Carolinas Medical Centerin [place] [id number] Information: [id number],[id number] ALT [Catalytic activity/Vol] 11 U/L Normal 0-32 [facility]; [facility] Work Phone: Comment on above: PATIENT NOT FASTINGP ERFORMED BY: CB [facility] Zfsreh0373 [facility] [facility] [place] [id number] Information: [id number] AST [Catalytic activity/Vol] 15 [iU]/L Normal 0-40 [facility] Work Phone: Comment on above: PATIENT NOT FASTINGP ERFORMED BY: SERGE [facility] Zkkkva5183 Marcelo RoadDublin [place] [id number] Information: 921130,[id number] AST [Catalytic activity/Vol] 15 U/L Normal 0-40 [facility]; [facility] Work Phone: Comment on above: PATIENT NOT FASTINGP ERFORMED BY: CB [facility] Nplgln5919 Marcelo RoadDublin [place] [id number] Information: 106539,N27504 Bilirubin [Mass/Vol] 0.7 mg/dL Normal 0.0-1.2 [facility] Work Phone: Comment on above: PATIENT NOT FASTINGP ERFORMED BY: [facility] Gslagv2607 Marcel[address] [facility] [place] [id number] Information: 863098,G35158 Calcium [Mass/Vol] 9.5 mg/dL Normal 8.7-10.2 [facility] Internal Medicine Work Phone: Comment on above: PATIENT NOT FASTINGP ERFORMED BY: CB [facility] Xexprd1241 Marcel[address] [facility] [place] [id number] Information: 087889,N17949 Chloride [Moles/Vol] 96 mmol/L Abnormal 97-108 [facility] Internal Medicine Work Phone: Comment on above: PATIENT NOT FASTINGP ERFORMED BY: CB [facility] Cqqfhk5743 Marcelo Roadblin [place] [id number] Information: 604529,M36023 CO2 [Moles/Vol] 23 mmol/L Normal 18-29 [facility] Internal Medicine Work Phone: Comment on above: PATIENT NOT FASTINGP ERFORMED BY: CB [facility] Cgcges0271 Marcelo RoadDublin [place] [id number] Information: 582632,K51779 Creatinine [Mass/Vol] 0.79 mg/dL Normal 0.57-1.00 [facility] Work Phone: Comment on above: PATIENT NOT FASTINGP ERFORMED BY: SERGE [facility] Dlauhh5660 [facility] [id number] Information: 438741,K38454 GFR/1.73 sq M predicted among blacks CKD-EPI (S/P/Bld) [Vol rate/Area] 95 mL/min/1.73 Normal [facility] Work Phone: Comment on above: PATIENT NOT FASTINGP ERFORMED BY: [facility] Dbnvqz7841 [facility] [id number] Information: 219933,Q03702 GFR/1.73 sq M predicted among non-blacks CKD-EPI (S/P/Bld) [Vol rate/Area] 83 mL/min/1.73 Normal [facility] Work Phone: Comment on above: PATIENT NOT FASTINGP ERFORMED BY: [facility] Ldugop3784 [facility] [id number] Information: 967404,[id number] Globulin (S) [Mass/Vol] 2.8 g/dL Normal 1.5-4.5 [facility] Work Phone: Comment on above: PATIENT NOT FASTINGP ERFORMED BY: [facility] Milsbm0182 [facility] [id number] Information: 258122,[id number] Glucose [Mass/Vol] 96 mg/dL Normal 65-99 [facility] Internal Medicine Work Phone: Comment on above: PATIENT NOT FASTINGP ERFORMED BY: [facility] Udavak3687 [facility] [id number] Information: 930977,G87835 Potassium [Moles/Vol] 5.1 mmol/L Normal 3.5-5.2 [facility] Work Phone: Comment on above: PATIENT NOT FASTINGP ERFORMED BY: [facility] Cmjbej7323 [facility] [id number] Information: 871121,S12901 Protein [Mass/Vol] 7.5 g/dL Normal 6.0-8.5 [facility] Internal Medicine Work Phone: Comment on above: PATIENT NOT FASTINGP ERFORMED BY: SERGE [facility] Uswaui9472 [facility] [id number] Information: 071061,E89980 Sodium [Moles/Vol] 135 mmol/L Normal 134-144 [facility] Internal Medicine Work Phone: Comment on above: PATIENT NOT FASTINGP ERFORMED BY: LabCoJerry [place] 5133670 [facility] [id number] Information: 895368,[id number] Urea nitrogen [Mass/Vol] 6 mg/dL Normal 6-24 [facility] Work Phone: Comment on above: PATIENT NOT FASTINGP ERFORMED BY: LabStephanie [place] 5389370 [facility] [id number] Information: 693073,X85192 Urea nitrogen/Creatinine [Mass ratio] 8 mg/mg Abnormal 9-23 [facility] Work Phone: Comment on above: PATIENT NOT FASTINGP ERFORMED BY: SERGE [facility] Jaxbti8846 [facility] [id number] Information: 662307,Z89114 Rapid Flu (98907 x 2)on 05-18 FLUAV Ag IA Ql (Throat) Negative Normal [facility] Work Phone: Comment on above: neg for A and B FLUAV Ag IA Ql (Throat) Negative Normal [facility]; [facility] Work Phone: Comment on above: neg for A and B T3, FREE (TRIDOTHYRONINE) (6 5415)Ordered By: Hair Cutter on 05-31-2015 Free T3 [Mass/Vol] 2.3 pg/mL Normal 2.0-4.4 [facility] Internal Medicine Work Phone: Comment on above: PATIENT NOT FASTINGP ERFORMED BY: [facility] Mdwwgk8990 [facility] [id number] T4, TOTAL (77861)Ordered By: Hair Cutter on 05-31-2015 T4 [Mass/Vol] 7.8 ug/dL Normal 4.5-12.0 [facility] Work Phone: Comment on above: PATIENT NOT FASTINGP ERFORMED BY: [facility]6370 [facility] [id number] TSH (49929)Ordered By: Syste m Magnet Placer on 05-31-2015 TSH Qn 1.290 {uIU/mL} Normal 0.450-4.500 [facility] Internal Medicine Work Phone: Comment on above: PATIENT NOT FASTINGP ERFORMED BY: SERGE [facility]6370 [facility] [id number] CBC with auto diff (47319)Or dered By: Hair Cutter on 05-17-2015 Basophils (Bld) [#/Vol] 0.0 {x10E3/uL} Normal 0.0-0.2 [facility] Work Phone: Comment on above: PATIENT NOT FASTINGP ERFORMED BY: [facility]6370 [facility] [id number] Information: 918487,[id number] Basophils (Bld) [#/Vol] 0.0 10*3/uL Normal 0.0-0.2 [facility]; [facility] Work Phone: Comment on above: PATIENT NOT FASTINGP ERFORMED BY: [facility] Lqodbg9758 [facility] [id number] Information: 153359,N57145 Basophils/100 WBC (Bld) 0 % Normal [facility] Work Phone: Comment on above: PATIENT NOT FASTINGP ERFORMED BY: LabCoVirtua MarltonBmdftk8092 [facility] [id number] Information: 192725,[id number] Eosinophils (Bld) [#/Vol] 0.1 {x10E3/uL} Normal 0.0-0.4 [facility] Work Phone: Comment on above: PATIENT NOT FASTINGP ERFORMED BY: SERGE Sommer Vhkfzb9898 [facility] [id number] Information: 150931,X86268 Eosinophils (Bld) [#/Vol] 0.1 10*3/uL Normal 0.0-0.4 [facility]; [facility] Work Phone: Comment on above: PATIENT NOT FASTINGP ERFORMED BY: SERGE Sommer Ssjpkx4584 [facility] [id number] Information: 480314,X84294 Eosinophils/100 WBC (Bld) 1 % Normal [facility] Work Phone: Comment on above: PATIENT NOT FASTINGP ERFORMED BY: SERGE Sommer Sikfnc[address] [id number] Information: 875615,R32772 Erythrocyte distribution width (RBC) [Ratio] 13.4 % Normal 12.3-15.4 [facility] Work Phone: Comment on above: PATIENT NOT FASTINGP ERFORMED BY: SERGE Soto[address] [id number] Information: 861631,P31246 Hematocrit (Bld) [Volume fraction] 37.8 % Normal 34.0-46.6 [facility] Work Phone: Comment on above: PATIENT NOT FASTINGP ERFORMED BY: SERGE S[address] [id number] Information: 555922,L22190 Hemoglobin (Bld) [Mass/Vol] 12.6 g/dL Normal 11.1-15.9 [facility] Work Phone: Comment on above: PATIENT NOT FASTINGP ERFORMED BY: SERGE SotoCoVirtua MarltonWriefo4205 [facility] [id number] Information: 966309,[id number] Immature granulocytes (Bld) [#/Vol] 0.0 {x10E3/uL} Normal 0.0-0.1 [facility] Work Phone: Comment on above: PATIENT NOT FASTINGP ERFORMED BY: SERGE [facility] Uhbqex5523 [facility] [id number] Information: 685829,P95761 Immature granulocytes (Bld) [#/Vol] 0.0 10*3/uL Normal 0.0-0.1 [facility]; [facility] Work Phone: Comment on above: PATIENT NOT FASTINGP ERFORMED BY: SERGE [facility] Gxefwg3335 [facility] [id number] Information: 484036,[id number] Immature granulocytes/100 WBC (Bld) 0 % Normal [facility] Work Phone: Comment on above: PATIENT NOT FASTINGP ERFORMED BY: SERGE Sommer Xncime9972 [facility] [id number] Information: 612628,S33690 Lymphocytes (Bld) [#/Vol] 2.8 {x10E3/uL} Normal 0.7-3.1 [facility] Work Phone: Comment on above: PATIENT NOT FASTINGP ERFORMED BY: SERGE Sommer Glsbrr5918 [facility] [id number] Information: 001671,[id number] Lymphocytes (Bld) [#/Vol] 2.8 10*3/uL Normal 0.7-3.1 [facility]; [facility] Work Phone: Comment on above: PATIENT NOT FASTINGP ERFORMED BY: [facility]6370 [facility] [id number] Information: 614292,N62685 Lymphocytes/100 WBC (Bld) 38 % Normal [facility] Work Phone: Comment on above: PATIENT NOT FASTINGP ERFORMED BY: SERGE [facility] Vzfcjl2461 [facility] [id number] Information: 161723,[id number] MCH (RBC) [Entitic mass] 31.3 pg Normal 26.6-33.0 [facility] Work Phone: Comment on above: PATIENT NOT FASTINGP ERFORMED BY: SERGE [facility]otoSaint [facility] Ouvohr4446 [facility] [id number] Information: 622026,N10031 MCHC (RBC) [Mass/Vol] 33.3 g/dL Normal 31.5-35.7 [facility] Work Phone: Comment on above: PATIENT NOT FASTINGP ERFORMED BY: SERGE [address] [id number] Information: 726787,[id number] MCV (RBC) [Entitic vol] 94 fL Normal 79-97 [facility] Work Phone: Comment on above: PATIENT NOT FASTINGP ERFORMED BY: SERGE Sommer Gldphb[address] [id number] Information: 142297,S26915 Monocytes (Bld) [#/Vol] 0.6 {x10E3/uL} Normal 0.1-0.9 [facility] Work Phone: Comment on above: PATIENT NOT FASTINGP ERFORMED BY: SERGE [facility]Saint [facility] Vzflzw740[address] [id number] Information: 556914,[id number] Monocytes (Bld) [#/Vol] 0.6 10*3/uL Normal 0.1-0.9 [facility]; [facility] Work Phone: Comment on above: PATIENT NOT FASTINGP ERFORMED BY: SERGE [address] [id number] Information: 917660,[id number] Monocytes/100 WBC (Bld) 8 % Normal [facility] Work Phone: Comment on above: PATIENT NOT FASTINGP ERFORMED BY: SERGE S[address] [id number] Information: 145408,H38862 Neutrophils (Bld) [#/Vol] 3.7 {x10E3/uL} Normal 1.4-7.0 [facility] Work Phone: Comment on above: PATIENT NOT FASTINGP ERFORMED BY: SERGE LabCokenny ValdesAgczsa[address] [facility] [id number] Information: 347723,S12073 Neutrophils (Bld) [#/Vol] 3.7 10*3/uL Normal 1.4-7.0 [facility]; [facility] Internal Medicine Work Phone: Comment on above: PATIENT NOT FASTINGP ERFORMED BY: SERGE LabCokenny ValdesJgmyuc[address] [facility] [id number] Information: 488120,I82193 Neutrophils/100 WBC (Bld) 53 % Normal [facility] Work Phone: Comment on above: PATIENT NOT FASTINGP ERFORMED BY: SERGE Valdes6370 [facility] [id number] Information: 931641,[id number] Platelets (Bld) [#/Vol] 357 {x10E3/uL} Normal 150-379 [facility] Internal Medicine Work Phone: Comment on above: PATIENT NOT FASTINGP ERFORMED BY: SERGE LabCokenny ValdesVkufrt3346 [facility] [id number] Information: 364454,[id number] Platelets (Bld) [#/Vol] 357 10*3/uL Normal 150-379 [facility]; [facility] Internal Medicine Work Phone: Comment on above: PATIENT NOT FASTINGP ERFORMED BY: SERGE [facility] Nzwejl9158 [facility] [id number] Information: 549244,[id number] RBC (Bld) [#/Vol] 4.03 {x10E6/uL} Normal 3.77-5.28 [facility] Internal Medicine Work Phone: Comment on above: PATIENT NOT FASTINGP ERFORMED BY: SERGE [facility] Ngnghj1546 [facility] [id number] Information: 558780,[id number] RBC (Bld) [#/Vol] 4.03 10*6/uL Normal 3.77-5.28 [facility]; [facility] Work Phone: Comment on above: PATIENT NOT FASTINGP ERFORMED BY: SERGE Valdes6370 [facility]Hay[facility] [id number] Information: 193350,[id number] WBC (Bld) [#/Vol] 7.2 {x10E3/uL} Normal 3.4-10.8 [facility] Internal Medicine Work Phone: Comment on above: PATIENT NOT FASTINGP ERFORMED BY: SERGE Valdes[address] [facility] [id number] Information: 556570,H03213 WBC (Bld) [#/Vol] 7.2 10*3/uL Normal 3.4-10.8 [facility] Internal Medicine; [facility] Work Phone: Comment on above: PATIENT NOT FASTINGP ERFORMED BY: SERGE Valdes6370 [facility] [id number] Information: 595312,V20625 PT (Prothrobim Time) (11315) Ordered By: Hair Cutter on 05-17-2015 INR Coag (PPP) [Relative time] 1.0 {INR} Normal 0.8-1.2 [facility] Internal Medicine Work Phone: Comment on above: Reference interval i s for non-anticoagulated patients. . Suggested INR therapeutic range for Vitamin K antagonist therapy: Standard Dose (moderate intensity therapeutic range): 2.0 - 3.0 Higher intensity therapeutic range 2.5 - 3.5 PATIENT NOT FASTINGP ERFORMED BY: SERGE Sommer Sgfuix[address] [facility] [id number] PT Coag (PPP) [Time] 10.0 {sec} Normal 9.1-12.0 [facility] Internal Medicine Work Phone: Comment on above: PATIENT NOT FASTINGP ERFORMED BY: SERGE [facility] Umtwfv[address] [facility] [id number] PT Coag (PPP) [Time] 10.0 s Normal 9.1-12.0 [facility]; [facility] Work Phone: Comment on above: PATIENT NOT FASTINGP ERFORMED BY: [employer] Emxosk1783 [facility] [id number] PTT (Activated Partial Throm boplastin Time) (32022)Ordered By: Hair Cutter on 05-17-2015 aPTT Coag (PPP) [Time] 29 {sec} Normal 24-33 [facility] Internal Medicine Work Phone: Comment on above: This test has not be en validated for monitoring unfractionated heparintherapy. aPTT-based therapeutic ranges for unfractionated heparintherapy have not been established. For general guidelines onHeparin monitoring, refer to the [employer] Directory of Services. PATIENT NOT FASTINGP ERFORMED BY: [employer] Infmmm8377 [facility] [id number] aPTT Coag (PPP) [Time] 29 s Normal 24-33 [facility] Internal Medicine; [facility] Internal Medicine Work Phone: Comment on above: This test has not be en validated for monitoring unfractionated heparintherapy. aPTT-based therapeutic ranges for unfractionated heparintherapy have not been established. For general guidelines onHeparin monitoring, refer to the [employer] Directory of Services. PATIENT NOT FASTINGP ERFORMED BY: [employer] Ofigvl2070 [facility] [id number] T4, FREE (THYROXINE) (94718) Ordered By: Hair Cutter on 05-17-2015 Free T4 [Mass/Vol] 1.31 ng/dL Normal 0.82-1.77 [facility] Internal Medicine Work Phone: Comment on above: PATIENT NOT FASTINGP ERFORMED BY: [facility]Former[facility]6370 [facility] [id number] TSH (50544)Ordered By: Syste m Magnet Placer on 05-17-2015 TSH Qn 0.808 {uIU/mL} Normal 0.450-4.500 [facility] Internal Medicine Work Phone: Comment on above: all labs to Dr. sloan weinstein; PATIENT NOT FASTINGPERFORMED BY: [facility]rickSaint [facility] Iwejdg0922 [facility] [id number] TSHOrdered By: System Manage r on 03-05-2014 TSH Qn 2.88 {uIU/mL} Normal 0.358-3.74 Comprehensi ve Internal Medicine Work Phone: TSH (78687)Ordered By: Syste m Magnet Placer on 04-08-2013 TSH Qn 0.602 {uIU/mL} Normal 0.450-4.500 Comprehen sive Internal Medicine Work Phone: Comment on above: PATIENT NOT FASTINGP ERFORMED BY: SERGE [facility] Ccqoft3779 [facility] [id number] Information: [id number] Pathology ReportOrdered By: Hair Cutter on 02-11-2013 Pathology report site of origin Narrative MATER Normal [facility] Work Phone: Comment on above: Material submitted: .SHAVE BX RT CHEEKClinical history: .SK. 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 - SMALL INTRADERMAL MELANOCYTIC NEVUS IS ALSO NOTED..COMMENT:- SINCE THE BASAL ASPECT OF THIS ATYPICAL SKIN LESION IS ONLY PARTIALLY REPRESENTED, A RE-EXCISION IS RECOMMENDED.SKYLAR/02/13/2013 Electronically signed: .Clinton Castaneda MD, PathologistGross description: .1 Container, formalin-filled, labeled with patient identification.SHAVE BX RT CHEEK:Received in formalin labeled KARLA BRIONES is a clinton-yellow fragmentof skin measuring 0.8 x 0.6 x 0.2 cm.The margin is marked with purpleink.It is trisected and submitted entirely in a single cassette./LMSLMS/LMSPathologist provided ICD-9:702.11, 216.3CPT .944943 PERFORMED BY: [employer] [place] Xiaq55387 [facility] [id number] Information: [id number] OSMOLALITY BLOOD (24172)Orde red By: Hair Cutter on 01-30-2013 Osmolality [Osmolality] 276 {mOsmol/kg} Normal 275-295 [facility] Work Phone: Comment on above: PATIENT NOT FASTINGP ERFORMED BY: Insightera70 [employer] AGMiddlesboro [facility] [id number] BY: [employer] [id number] Osmolality [Osmolality] 276 mosm/kg Normal 275-295 [facility]; [facility] Work Phone: Comment on above: PATIENT NOT FASTINGP ERFORMED BY: Insighter[employer]70 SecondHomeHaywood [facility] [id number] BY: [employer] [id number] SODIUM SERUM (87268)Ordered By: Hair Cutter on 01-30-2013 Sodium [Moles/Vol] 134 mmol/L Normal 134-144 [facility] Internal [facility] Work Phone: Comment on above: PATIENT NOT FASTINGP ERFORMED BY: [employer] Hcjfrl0639 Marcelo Intechra HoldingsHaywood Regional Medical Center [id number] BY: [employer] [id number] TSH (THYROID STIMULATING HOR FADI) (34483)Ordered By: Hair Cutter on 01-30-2013 TSH Qn 5.450 {uIU/mL} Abnormal 0.450-4.500 Comprehen [facility] Internal [facility] Work Phone: Comment on above: PATIENT NOT FASTINGP ERFORMED BY: Insightera[address] [facility] [id number] BY: [facility] Hbhxhxyxxf4135 [facility] [id number] Information: [id number],[id number] L5DAwdawuc By: System Manage r on 03-06-2012 Free T4 [Mass/Vol] 0.95 ng/dL Normal 0.76-1.46 Compre hensive Internal Medicine Work Phone: TSHOrdered By: System Manage r on 03-06-2012 TSH Qn 2.12 {uIU/mL} Normal 0.358-3.74 Comprehensi ve Internal Medicine Work Phone: ABDOMEN/PELVIS WITHOUT CONTO rdered By: Hair Cutter on 02-13-2012 ABDOMEN/PELVIS WITHOUT CONT See Note Normal [facility] Work Phone: Comment on above: PROCEDURE: CT ABDOME N AND PELVIS WITHOUT CONTRAST REASON FOR EXAM: Female, 56 years old. Right flank pain and hematuria. RADIATION DOSAGE (If Supplied By Facility): CTDIvol = ( 6.37 ) mGy, DLP=( 288.35 ) mGycm TECHNIQUE: Transaxial images were obtained from the dome of thediaphragmto the symphysis pubis without oral contrast, and without intravenouscontrast. Multiplanar coronal and sagittal images were reformatted.Thisexamination is limited for the evaluation of solid organs and vascularstructures due to the lack of intravenous contrast. COMPARISON: Comparison is made with prior study dated October 31, 2010. FINDINGS:The visualized lung bases [...] measures 4 mm. Normal size of the left kidney. There is no left renal mass. There arenoleft renal calculi. There is no left hydronephrosis. Normal visualizedleft ureter. Normal visualized stomach. Normal small intestine. Normal colon. Theappendix is visualized and appears normal. There is no demonstrated peritoneal fluid. There is diffuse atherosclerotic calcification of the abdominal aorta,without a demonstrated aneurysm. Normal inferior vena cava. Normalretroperitoneum. Normal urinary bladder. There is no pelvic mass lesion orlymphadenopathy.There is no pelvic fluid. There is a small umbilical hernia containing fat. Normal osseousstructures. IMPRESSION:4-mm calculus at the right ureterovesical junction causing a mild degreeofright hydronephrosis. Signed:Rocky Lunsford M.D.February 13, 2012 at 10:34:07 AM [id number] Signed GP/GP If you are the referring physician and would like to consult with theradiologist who provided this interpretation, please contact Nyasia Pollard at [phone]. If this radiologist is unavailable, youwill be directed to another radiologist to assist. If you are a patient with a question regarding this report, pleasecontactyour referring physician directly. Professional Interpretation Provided By: [employer], Phone , These documents contain legally protected and confidential healthinformation intended only for the use of the individual or entity namedabove. If you are not the intended recipient, you are hereby notifiedthatany disclosure, copying, distribution, or other use of these documents isstrictly prohibited. If you have received this information in error,pleasenotify the sender immediately and arrange for the return or destructionofthese documents. Dictated on 02/13/12 0955 by Mandy Lunsford MDscribed on 02/13/12 1118 by ITS IMPORTSign by Rocky Lunsford MD on 02/13/12 1119 Sign by: Rocky Lunsford MD Urinalysis, Office ([id number])on 02-13-2012 Bilirubin Ql (U) Negative Normal [facility] Work Phone: Bilirubin Ql (U) Negative Normal [facility]; [facility] Work Phone: Glucose Test strip (U) [Mass/Vol] Negative Normal [facility] Work Phone: Glucose Test strip (U) [Mass/Vol] Negative Normal [facility]; [facility] Work Phone: Hemoglobin Ql (U) Hemolyzed Small Normal [facility] Work Phone: Ketones Ql (U) Negative Normal [facility] Work Phone: Ketones Ql (U) Negative Normal [facility]; [facility] Work Phone: Leukocyte esterase Test strip Ql (U) Negative Normal [facility] Work Phone: Leukocyte esterase Test strip Ql (U) Negative Normal [facility]; [facility] Work Phone: Nitrite Ql (U) Negative Normal [facility] Work Phone: Nitrite Ql (U) Negative Normal [facility]; [facility] Work Phone: pH (U) 7.0 [pH] Normal [facility] Work Phone: Protein Ql (U) Negative Normal [facility] Work Phone: Protein Ql (U) Negative Normal [facility]; [facility] Work Phone: Specific gravity (U) [Rel density] 1.010 1 Normal [facility] Work Phone: Urobilinogen (24H U) [Mass/Time] Normal Normal [facility] Work Phone: [id number] By: System Manage r on 10-11-2011 Free T4 [Mass/Vol] 1.07 ng/dL Normal 0.76-1.46 Compre [facility] Work Phone: TSHOrdered By: System Manage r on 10-11-2011 TSH Qn 1.05 {uIU/mL} Normal 0.358-3.74 Comprehensi ve [facility] Work Phone: T4 FREE DIRECTOrdered By: Sy stem Magnet Placer on 08-09-2011 Free T4 [Mass/Vol] 0.73 ng/dL Abnormal 0.76-1.46 Compre [facility] Work Phone: TSHOrdered By: System Manage r on 08-09-2011 TSH Qn 5.53 {uIU/mL} Abnormal 0.358-3.74 Comprehensi ve [facility] Work Phone: T4 THYROXINOrdered By: Yandel diggs Magnet Placer on 04-12-2011 T4 THYROXIN 8.6 ug/dL Normal 4.8-13.9 [facility] Work Phone: Comment on above: appt 04/24/11 TPO AB [id number] By: Yandel m Magnet Placer on 04-12-2011 TPO AB [id number] 1596 {IU/mL} Abnormal 0-34 Comprehensi [facility] Work Phone: Comment on above: Results confirmed on dilution.Performed at: - [facility] [id number] Director: Jeaneth Smallwood MD, Phone: [phone] TSHOrdered By: System Manage r on 04-12-2011 TSH Qn 2.83 {uIU/mL} Normal 0.358-3.74 Comprehensi ve [facility] Work Phone: T3 TOTALOrdered By: Murali salinas on 03-09-2011 T3 TOTAL 1.0 ng/mL Normal 0.7-1.9 [facility] Work Phone: Comment on above: ADD T3 AND T4 PER MA NDY AT OFFICE T4 THYROXINOrdered By: Yandel diggs Magnet Placer on 03-09-2011 T4 THYROXIN 6.8 ug/dL Normal 4.8-13.9 [facility] Work Phone: Comment on above: ADD T3 AND T4 PER MA NDY AT OFFICE TSHOrdered By: System Manage r on 03-08-2011 TSH Qn 5.06 {uIU/mL} Abnormal 0.358-3.74 Compre[facility]si [facility] Work Phone: ABDOMEN/PELVIS WITHOUT CONTO rdered By: Hair Cutter on 10-31-2010 ABDOMEN/PELVIS WITHOUT CONT See Note Normal [facility] Work Phone: Comment on above: CLINICAL:Female, 55 years old. The patient presented with right flank pain andmicrohematuria. CT ABDOMEN AND PELVIS WITHOUT CONTRAST TECHNIQUE:Transaxial images were obtained from the dome of the diaphragm to thesymphysis pubis without oral contrast, and [...] adrenal adenoma. It measures 8.6 mm. Normal rightadrenal gland. Normal size of the right kidney. There is no right renal mass. Thereareno right renal calculi. There is mild hydronephrosis of the rightkidney.There is a right ureteral calculus in the distal 1/3 of the ureter. Itmeasures 4 mm. Normal size of the left kidney. There is no left renal mass. There arenoleft renal calculi. There is no left hydronephrosis. Normal visualizedleft ureter. Normal visualized stomach. Normal small intestine. Normal colon. Theappendix is visualized and appears normal. There is no demonstrated peritoneal fluid. There is diffuse atherosclerotic calcification of the abdominal aorta,without a demonstrated aneurysm. Normal inferior vena cava. Normalretroperitoneum. Normal urinary bladder. There is no pelvic mass lesion orlymphadenopathy.There is no pelvic fluid. Normal abdominal wall. Normal osseous structures. IMPRESSION:There is a 4-mm calculus in the distal portion of the right uretercausinga mild degree of right-sided hydronephrosis. Dictated on 10/31/10 0907 by David Lunsford MDranscribed on 10/31/10 1030 by ITS IMPORTSign by Rocky Lunsford MD on 10/31/10 1030 Sign by: Rocky Lunsford MD Urinalysis, Office ([id number])on 10-31-2010 Bilirubin Ql (U) Negative Normal [facility] Work Phone: Bilirubin Ql (U) Negative Normal [facility]; [facility] Work Phone: Glucose Test strip (U) [Mass/Vol] Negative Normal [facility] Work Phone: Glucose Test strip (U) [Mass/Vol] Negative Normal [facility]; [facility] Work Phone: Hemoglobin Ql (U) Hemolyzed Trace Normal [facility] Work Phone: Ketones Ql (U) Negative Normal [facility] Work Phone: Ketones Ql (U) Negative Normal [facility]; [facility] Work Phone: Leukocyte esterase Test strip Ql (U) Negative Normal [facility] Work Phone: Leukocyte esterase Test strip Ql (U) Negative Normal [facility]; [facility] Work Phone: Nitrite Ql (U) Negative Normal [facility] Work Phone: Nitrite Ql (U) Negative Normal [facility]; [facility] Work Phone: pH (U) 6.0 [pH] Normal [facility] Work Phone: Protein Ql (U) Negative Normal [facility] Work Phone: Protein Ql (U) Negative Normal [facility]; [facility] Work Phone: Specific gravity (U) [Rel density] 1.015 1 Normal [facility] Work Phone: Urobilinogen (24H U) [Mass/Time] Normal Normal [facility] Work Phone: Urinalysis, Office ([id number])Or dered By: Rodney Manzanares on 11-17-2008 Bilirubin Ql (U) Negative Normal Compre[facility] Work Phone: Bilirubin Ql (U) Negative Normal [facility]; [facility] Work Phone: Glucose Test strip (U) [Mass/Vol] Negative Normal [facility] Work Phone: Glucose Test strip (U) [Mass/Vol] Negative Normal [facility]; [facility] Work Phone: Hemoglobin Ql (U) Non Hemolyzed Moderate Normal [facility] Work Phone: Ketones Ql (U) Negative Normal [facility] Work Phone: Ketones Ql (U) Negative Normal [facility]; [facility] Work Phone: Leukocyte esterase Test strip Ql (U) Small Normal [facility] Work Phone: Nitrite Ql (U) Negative Normal [facility] Work Phone: Nitrite Ql (U) Negative Normal [facility]; [facility] Work Phone: pH (U) 6.0 [pH] Normal [facility] Work Phone: Protein Ql (U) Negative Normal [facility] Work Phone: Protein Ql (U) Negative Normal [facility]; [facility] Work Phone: Specific gravity (U) [Rel density] 1.015 1 Normal [facility] Work Phone: Urobilinogen (24H U) [Mass/Time] 2 mg/dL Normal [facility] Work Phone: FLU A+B DIRECTOrdered By: Sergio stem Magnet Placer on 10-08-2007 FLU A+B DIRECT See Note Normal [facility] Work Phone: Comment on above: Negative test res ults should be confirmed by culture. Order Rapid Viral Culture for Influenzae A+B ([id number]) if clinically indicated. INFLUENZA ANTIGEN,DIRECT Presumptive NEGATIVE for Influenza A/B Antigen (See Note) INFLUENZA IMMUNOASSY DIRECT OPTICAL OBSERV ([id number])Ordered By: Rodney Manzanares on 10-08-2007 FLUAV Ag IA Ql (Throat) Negative Normal [facility] Work Phone: Comment on above: call results to Dr. mireles!!!!!!!!!! FLUAV Ag IA Ql (Throat) Negative Normal [facility]; [facility] Work Phone: Comment on above: call results to Dr. mireles!!!!!!!!!! LIPIDOrdered By: System Jackelyn pascual on 03-16-2007 Cholesterol [Mass/Vol] 188 mg/dL Normal [facility] Work Phone: Comment on above: <200 mg/dL Desirable 200-240 mg/dL Borderline >240 mg/dL High Risk Cholesterol in HDL [Mass/Vol] 57 mg/dL Normal [facility] Work Phone: Comment on above: Reference Range HDL <40 mg/dL Low HDL Cholesterol HDL >or= 60 mg/dL High HDL Cholesterol Cholesterol in LDL [Mass/Vol] 108 mg/dL Normal 0-130 [facility] Work Phone: Cholesterol in VLDL [Mass/Vol] 23 mg/dL Normal 5-40 [facility] Work Phone: Triglyceride [Mass/Vol] 114 mg/dL Normal [facility] Work Phone: Comment on above: Serum Triglycerides Reference Interval Normal <150 mg/dL Borderline high 150 - 199 mg/dL High 200 - 499 mg/dL Very High > or = 500 mg/dL TSHOrdered By: System Manage r on 03-16-2007 TSH Qn 2.45 {uIU/mL} Normal 0.34-4.82 Comprehensi [facility] Work Phone: Vital Signs Date Time Vital Sign Value Performing Clinician Facility 11-21-2021 11:39-0400 Body height 160.02 cm T[facility]; [facility] Work Phone: 11-21-2021 11:39-0400 Body mass index (BMI) [Ratio] 24.47 kg/m2 [facility]; [facility] Work Phone: 11-21-2021 11:39-0400 Body surface area Derived from formula 1.65 m2 [facility]; [facility] Work Phone: 11-21-2021 11:39-0400 Body temperature 97.3 [degF] Tomeka Toledo CMA [facility]; [facility] Work Phone: Comment on above: Method: Infrared 11-21-2021 11:39-0400 Body weight 62.65 kg Tomeak Toledo [employer]ER [facility]; [facility] Work Phone: 11-21-2021 11:39-0400 Diastolic blood pressure 78 mm[Hg] Tomeka Toledo [facility]; [facility] Work Phone: Comment on above: Patient Position: Sitting; Cuff Location : Left Arm; Cuff Size: Standard 11-21-2021 11:39-0400 Heart rate 76 /min Tomeka Toledo [facility]; [facility] Work Phone: Comment on above: Pattern: Regular 11-21-2021 11:39-0400 Respiratory rate 18 /min Tomeka Toledo [facility]; [facility] Work Phone: Comment on above: Pattern: Unlabored 11-21-2021 11:39-0400 SaO2% (BldA) [Mass fraction] 97 % Tomeka Toledo [facility]; [facility] Work Phone: Comment on above: Room air 11-21-2021 11:39-0400 Systolic blood pressure 128 mm[Hg] Tomeka Toledo [facility]; [facility] Work Phone: Comment on above: Patient Position: Sitting; Cuff Location : Left Arm; Cuff Size: Standard 08-17-2021 09:03-0500 Body height 160.02 cm Winnie Cotter DO Work Phone: [facility]; [facility] Work Phone: Comment on above: partial vs taken as this is phone encoun ter due to covid 08-17-2021 09:03-0500 Body mass index (BMI) [Ratio] 24.82 kg/m2 Winnie Harrison DO Work Phone: [facility]; [facility] Work Phone: Comment on above: partial vs taken as this is phone encoun ter due to covid 08-17-2021 09:03-0500 Body surface area Derived from formula 1.66 m2 Winnie Cotter DO Work Phone: [facility]; [facility] Work Phone: Comment on above: partial vs taken as this is phone encoun ter due to covid 08-17-2021 09:03-0500 Body weight 63.56 kg Winnie Cotter DO Work Phone: [facility]; [facility] Work Phone: Comment on above: partial vs taken as this is phone encoun ter due to covid 08-17-2021 09:03-0500 Diastolic blood pressure 80 mm[Hg] Winnie Cotter DO Work Phone: [facility]; [facility] Work Phone: Comment on above: Patient Position: Sitting partial vs taken as this is phone encounter due to covid 08-17-2021 09:03-0500 Heart rate 82 /min Winnie Cotter DO Work Phone: [facility]; [facility] Work Phone: Comment on above: Pattern: Regular partial vs taken as this is phone encounter due to covid 08-17-2021 09:03-0500 Systolic blood pressure 118 mm[Hg] Winnie Cotter DO Work Phone: [facility]; [facility] Work Phone: Comment on above: Patient Position: Sitting partial vs taken as this is phone encounter due to covid 06-20-2021 09:45-0500 Body height 160.02 cm Prabha Ng LPN [facility]; [facility] Work Phone: Comment on above: pt did not report 06-20-2021 09:45-0500 Body mass index (BMI) [Ratio] 24.82 kg/m2 Prabha Ng LPN [facility]; [facility] Work Phone: Comment on above: pt did not report 06-20-2021 09:45-0500 Body surface area Derived from formula 1.66 m2 Prabha Ng 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 [facility]; [facility] Work Phone: Comment on above: pt did not report 06-20-2021 09:45-0500 Body weight 63.56 kg Prabha Ng ANNA [facility]; [facility] Work Phone: Comment on above: pt did not report 06-06-2021 12:50-0500 Body height 160.02 cm Richy Haile LPN [facility]; [facility] Work Phone: 06-06-2021 12:50-0500 Body mass index (BMI) [Ratio] 24.82 kg/m2 Richy Haile LPN [facility]; [facility] Work Phone: 06-06-2021 12:50-0500 Body surface area Derived from formula 1.66 m2 Richy Haile LPN [facility]; [facility] Work Phone: 06-06-2021 12:50-0500 Body temperature 97.8 [degF] Richy Haile LPN [facility]; [facility] Work Phone: Comment on above: Method: Infrared 06-06-2021 12:50-0500 Body weight 63.56 kg Richy Haile LPN [facility]; [facility] Work Phone: 06-06-2021 12:50-0500 Diastolic blood pressure 82 mm[Hg] Richy Haile LPN [facility]; [facility] Work Phone: Comment on above: Patient Position: Sitting; Cuff Location : Left Arm; Cuff Size: Standard 06-06-2021 12:50-0500 Heart rate 58 /min Richy Haile LPN [facility]; [facility] Work Phone: Comment on above: Pattern: Regular 06-06-2021 12:50-0500 Respiratory rate 16 /min Richy Haile LPN [facility]; [facility] Work Phone: Comment on above: Pattern: Unlabored 06-06-2021 12:50-0500 SaO2% (BldA) [Mass fraction] 100 % Richy Haile ANNA [facility]; [facility] Work Phone: Comment on above: Room air 06-06-2021 12:50-0500 Systolic blood pressure 152 mm[Hg] Richy Haile ANNA [facility]; [facility] Work Phone: Comment on above: Patient Position: Sitting; Cuff Location : Left Arm; Cuff Size: Standard 05-25-2021 14:33-0500 Body height 160.02 cm Jennifer Melara ANNA [facility]; [facility] Work Phone: 05-25-2021 14:33-0500 Body mass index (BMI) [Ratio] 24.82 kg/m2 Jennifer Melara ANNA [facility]; [facility] Work Phone: 05-25-2021 14:33-0500 Body surface area Derived from formula 1.66 m2 Jenniferkhadijah Hannatamara CASTILLO [facility]; [facility] Work Phone: 05-25-2021 14:33-0500 Body temperature 97.9 [degF] Jennifer Melara ANNA [facility]; [facility] Work Phone: Comment on above: Method: Temporal 05-25-2021 14:33-0500 Body weight 63.56 kg Jennifer Melara ANNA [facility]; [facility] Work Phone: 05-25-2021 14:33-0500 Diastolic blood pressure 80 mm[Hg] Jennifer Melara ANNA [facility]; [facility] Work Phone: Comment on above: Patient Position: Sitting; Cuff Location : Left Arm; Cuff Size: Standard 05-25-2021 14:33-0500 Heart rate 76 /min Jennifer Melara ANNA [facility]; [facility] Work Phone: Comment on above: Pattern: Regular 05-25-2021 14:33-0500 Respiratory rate 16 /min Jennifer Melara ANNA [facility]; [facility] Work Phone: Comment on above: Pattern: Unlabored 05-25-2021 14:33-0500 SaO2% (BldA) [Mass fraction] 98 % Jennifer Melara 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 [facility]; [facility] Work Phone: Comment on above: Room air 05-25-2021 14:33-0500 Systolic blood pressure 118 mm[Hg] Jennifer Melara LPN [facility]; [facility] Work Phone: Comment on above: Patient Position: Sitting; Cuff Location : Left Arm; Cuff Size: Standard 05-19-2021 12:56-0500 Body height 160.02 cm Prabha Ng 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 [facility]; [facility] Work Phone: 05-19-2021 12:56-0500 Body mass index (BMI) [Ratio] 24.53 kg/m2 Prabha Sandersrb 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 [facility]; [facility] Work Phone: 05-19-2021 12:56-0500 Body surface area Derived from formula 1.65 m2 Prabha Slarb 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 [facility]; [facility] Work Phone: 05-19-2021 12:56-0500 Body temperature 97.3 [degF] Prabha Ng 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 [facility]; [facility] Work Phone: 05-19-2021 12:56-0500 Body weight 62.82 kg Prabha Ng 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 [facility]; [facility] Work Phone: 05-19-2021 12:56-0500 Diastolic blood pressure 78 mm[Hg] Prabha Ng 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 [facility]; [facility] Work Phone: Comment on above: Patient Position: Sitting; Cuff Location : Left Arm; Cuff Size: Standard 05-19-2021 12:56-0500 Heart rate 85 /min Prabha Slarb 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 [facility]; [facility] Work Phone: Comment on above: Pattern: Regular 05-19-2021 12:56-0500 Respiratory rate 17 /min Prabha Marilynrb 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 [facility]; [facility] Work Phone: Comment on above: Pattern: Unlabored 12-02-2021 12:56-0500 SaO2% (BldA) [Mass fraction] 98 % Prabha Ng 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 [facility]; [facility] Work Phone: Comment on above: Room air 05-19-2021 12:56-0500 Systolic blood pressure 118 mm[Hg] Prabha Ng 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 [facility]; [facility] Work Phone: Comment on above: Patient Position: Sitting; Cuff Location : Left Arm; Cuff Size: Standard 04-22-2020 11:19-0500 BMI (Body Mass Index) 24.18 kg/m2 Winnie Ragini DO Work Phone: [facility] Work Phone: 04-22-2020 11:19-0500 Body Temperature 97.12 [degF] Winnie Ragini DO Work Phone: [facility] Work Phone: Comment on above: Method: Oral 04-22-2020 11:19-0500 Body weight 61.92 kg Winnie Ragini DO Work Phone: [facility] Work Phone: 04-22-2020 11:19-0500 BP Diastolic 91 mm[Hg] Winnie Ragini DO Work Phone: [facility] Work Phone: Comment on above: Patient Position: Sitting 04-22-2020 11:19-0500 BP Systolic 141 mm[Hg] Winnie Ragini DO Work Phone: [facility] Work Phone: Comment on above: Patient Position: Sitting 04-22-2020 11:19-0500 BSA (Body Surface Area) 1.64 m2 Winnie Ragini DO Work Phone: [facility] Work Phone: 04-22-2020 11:19-0500 Height 160.02 cm Winnie Ragini DO Work Phone: [facility] Work Phone: 04-22-2020 11:19-0500 Pulse (Heart Rate) 67 /min Winnie Ragini DO Work Phone: [facility] Work Phone: Comment on above: Pattern: Regular 03-03-2019 09:53-0400 BMI (Body Mass Index) 24.18 kg/m2 Prabha Slarb 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 Comprehen [facility] Work Phone: 03-03-2019 09:53-0400 Body Temperature 97.3 [degF] Prabha Slarb 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 [facility] Work Phone: 03-03-2019 09:53-0400 Body weight 61.92 kg Prabha Slarb 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 [facility] Work Phone: 03-03-2019 09:53-0400 BP Diastolic 88 mm[Hg] Prabha Slarb 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 [facility] Work Phone: Comment on above: Patient Position: Sitting; Cuff Location : Left Arm; Cuff Size: Standard 03-03-2019 09:53-0400 BP Systolic 118 mm[Hg] Prabha Slarb 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 [facility] Work Phone: Comment on above: Patient Position: Sitting; Cuff Location : Left Arm; Cuff Size: Standard 03-03-2019 09:53-0400 BSA (Body Surface Area) 1.64 m2 Prabha Slarb 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 [facility] Work Phone: 03-03-2019 09:53-0400 Height 160.02 cm Prabha Slarb 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 [facility] Work Phone: 03-03-2019 09:53-0400 Pulse (Heart Rate) 74 /min Prabha Slarb 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 [facility] Work Phone: Comment on above: Pattern: Regular 03-03-2019 09:53-0400 Pulse Oximetry 98 % Winnie Cotter [facility] Work Phone: Comment on above: Room air 03-03-2019 09:53-0400 Respiratory Rate 16 /min Prabha Slarb 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 [facility] Work Phone: Comment on above: Pattern: Unlabored 03-03-2019 09:53-0400 SaO2% (BldA) [Mass fraction] 98 % Prabha Ng LPN [facility]; [facility] Work Phone: Comment on above: Room air 10-21-2018 15:28-0400 BMI (Body Mass Index) 22.94 kg/m2 Petrona Sherman RN [facility] Work Phone: 10-21-2018 15:28-0400 Body weight 58.74 kg Petrona Sherman RN [facility] Work Phone: 10-21-2018 15:28-0400 BP Diastolic 78 mm[Hg] Petrona Sherman RN [facility] Work Phone: Comment on above: Patient Position: Sitting; Cuff Location : Left Arm; Cuff Size: Standard 10-21-2018 15:28-0400 BP Systolic 120 mm[Hg] Petrona Sherman RN [facility] Work Phone: Comment on above: Patient Position: Sitting; Cuff Location : Left Arm; Cuff Size: Standard 10-21-2018 15:28-0400 BSA (Body Surface Area) 1.61 m2 Petrona Sherman RN [facility] Work Phone: 10-21-2018 15:28-0400 Height 160.02 cm Petrona Sherman RN [facility] Work Phone: 10-21-2018 15:28-0400 Pulse (Heart Rate) 67 /min Petrona Sherman RN [facility] Work Phone: Comment on above: Pattern: Regular 10-21-2018 15:28-0400 Pulse Oximetry 98 % Winnie Cotter [facility] Work Phone: Comment on above: Room air 10-21-2018 15:28-0400 Respiratory Rate 18 /min Petrona Sherman RN [facility] Work Phone: Comment on above: Pattern: Unlabored 10-21-2018 15:28-0400 SaO2% (BldA) [Mass fraction] 98 % Petrona Sherman RN [facility]; [facility] Work Phone: Comment on above: Room air 09-18-2018 15:51-0400 BMI (Body Mass Index) 24.27 kg/m2 MIGUELITO Hernandez LPN [facility] Work Phone: 09-18-2018 15:51-0400 Body Temperature 97.6 [degF] MIGUELITO Hernandez LPN [facility] Work Phone: Comment on above: Method: Temporal 09-18-2018 15:51-0400 Body weight 62.14 kg MIGUELITO Hernandez LPN [facility] Work Phone: 09-18-2018 15:51-0400 BP Diastolic 80 mm[Hg] MIGUELITO Hernandez LPN [facility] Work Phone: Comment on above: Patient Position: Sitting; Cuff Location : Left Arm; Cuff Size: Standard 09-18-2018 15:51-0400 BP Systolic 126 mm[Hg] MIGUELITO Hernandez LPN [facility] Work Phone: Comment on above: Patient Position: Sitting; Cuff Location : Left Arm; Cuff Size: Standard 09-18-2018 15:51-0400 BSA (Body Surface Area) 1.65 m2 MIGUELITO Hernandez LPN [facility] Work Phone: 09-18-2018 15:51-0400 Height 160.02 cm MIGUELITO Hernandez LPN [facility] Work Phone: 09-18-2018 15:51-0400 Pulse (Heart Rate) 74 /min MIGUELITO Hernandez LPN [facility] Work Phone: Comment on above: Pattern: Regular 09-18-2018 15:51-0400 Pulse Oximetry 98 % Winnie Cotter [facility] Work Phone: Comment on above: Room air 09-18-2018 15:51-0400 Respiratory Rate 18 /min MIGUELITO Hernandez LPN [facility] Work Phone: Comment on above: Pattern: Unlabored 09-18-2018 15:51-0400 SaO2% (BldA) [Mass fraction] 98 % MIGUELITO Hernandez LPN [facility]; [facility] Work Phone: Comment on above: Room air 11-05-2017 15:29-0400 BMI (Body Mass Index) 24.27 kg/m2 Petrona Sherman RN [facility] Work Phone: 11-05-2017 15:29-0400 Body weight 62.14 kg Petrona Sherman RN [facility] Work Phone: 11-05-2017 15:29-0400 BP Diastolic 76 mm[Hg] Petrona Sherman RN [facility] Work Phone: Comment on above: Patient Position: Sitting; Cuff Location : Left Arm; Cuff Size: Large 11-05-2017 15:29-0400 BP Systolic 132 mm[Hg] Petrona Sherman RN [facility] Work Phone: Comment on above: Patient Position: Sitting; Cuff Location : Left Arm; Cuff Size: Large 11-05-2017 15:29-0400 BSA (Body Surface Area) 1.65 m2 Petrona Sherman RN [facility] Work Phone: 11-05-2017 15:29-0400 Height 160.02 cm Petrona Sherman RN [facility] Work Phone: 11-05-2017 15:29-0400 Pulse (Heart Rate) 66 /min Petrona Sherman RN [facility] Work Phone: Comment on above: Pattern: Regular 11-05-2017 15:29-0400 Pulse Oximetry 97 % Winnie Cotter [facility] Work Phone: Comment on above: Room air 11-05-2017 15:29-0400 Respiratory Rate 18 /min Petrona Sherman RN [facility] Work Phone: Comment on above: Pattern: Unlabored 11-05-2017 15:29-0400 SaO2% (BldA) [Mass fraction] 97 % Petrona Sherman RN [facility]; [facility] Work Phone: Comment on above: Room air 10-22-2017 16:11-0400 BMI (Body Mass Index) 24.27 kg/m2 Petrona Sherman RN [facility] Work Phone: 10-22-2017 16:11-0400 Body weight 62.14 kg Petrona Sherman RN [facility] Work Phone: 10-22-2017 16:11-0400 BP Diastolic 76 mm[Hg] Petrona Sherman RN [facility] Work Phone: Comment on above: Patient Position: Sitting; Cuff Location : Left Arm; Cuff Size: Standard 10-22-2017 16:11-0400 BP Systolic 134 mm[Hg] Petrona Sherman RN [facility] Work Phone: Comment on above: Patient Position: Sitting; Cuff Location : Left Arm; Cuff Size: Standard 10-22-2017 16:11-0400 BSA (Body Surface Area) 1.65 m2 Pertona Sherman RN [facility] Work Phone: 10-22-2017 16:11-0400 Height 160.02 cm Petrona Sherman RN [facility] Work Phone: 10-22-2017 16:11-0400 Pulse (Heart Rate) 68 /min Petrona Sherman RN [facility] Work Phone: Comment on above: Pattern: Regular 10-22-2017 16:11-0400 Pulse Oximetry 97 % Winnie Cotter [facility] Work Phone: Comment on above: Room air 10-22-2017 16:11-0400 Respiratory Rate 18 /min Petrona Sherman RN [facility] Work Phone: Comment on above: Pattern: Unlabored 10-22-2017 16:11-0400 SaO2% (BldA) [Mass fraction] 97 % Petrona Sherman RN [facility]; [facility] Work Phone: Comment on above: Room air 10-15-2017 16:17-0400 BMI (Body Mass Index) 23.8 kg/m2 Petrona Sherman RN [facility] Work Phone: 10-15-2017 16:17-0400 Body weight 60.95 kg Petrona Sherman RN [facility] Work Phone: 10-15-2017 16:17-0400 BP Diastolic 82 mm[Hg] Petrona Sherman RN [facility] Work Phone: Comment on above: Patient Position: Sitting; Cuff Location : Left Arm; Cuff Size: Standard 10-15-2017 16:17-0400 BP Systolic 122 mm[Hg] Petrona Sherman RN [facility] Work Phone: Comment on above: Patient Position: Sitting; Cuff Location : Left Arm; Cuff Size: Standard 10-15-2017 16:17-0400 BSA (Body Surface Area) 1.63 m2 Petrona Sherman RN [facility] Work Phone: 10-15-2017 16:17-0400 Height 160.02 cm Petrona Sherman RN [facility] Work Phone: 10-15-2017 16:17-0400 Pulse (Heart Rate) 69 /min Petrona Sherman RN [facility] Work Phone: Comment on above: Pattern: Regular 10-15-2017 16:17-0400 Pulse Oximetry 97 % Winnie Cotter [facility] Work Phone: Comment on above: Room air 10-15-2017 16:17-0400 Respiratory Rate 18 /min Petrona Sherman RN [facility] Work Phone: Comment on above: Pattern: Unlabored 10-15-2017 16:17-0400 SaO2% (BldA) [Mass fraction] 97 % Petrona Sherman RN [facility]; [facility] Work Phone: Comment on above: Room air 05-28-2017 11:01-0500 BMI (Body Mass Index) 23.83 kg/m2 Petrona Sherman RN [facility] Work Phone: 05-28-2017 11:01-0500 Body weight 61.01 kg Petrona Sherman RN [facility] Work Phone: 05-28-2017 11:01-0500 BP Diastolic 82 mm[Hg] Petrona Sherman RN [facility] Work Phone: Comment on above: Patient Position: Sitting; Cuff Location : Left Arm; Cuff Size: Standard 05-28-2017 11:01-0500 BP Systolic 138 mm[Hg] Petrona Sherman RN [facility] Work Phone: Comment on above: Patient Position: Sitting; Cuff Location : Left Arm; Cuff Size: Standard 05-28-2017 11:01-0500 BSA (Body Surface Area) 1.63 m2 Petrona Sherman RN [facility] Work Phone: 05-28-2017 11:01-0500 Height 160.02 cm Petrona Sherman RN [facility] Work Phone: 05-28-2017 11:01-0500 Pulse (Heart Rate) 67 /min Petrona Sherman RN [facility] Work Phone: Comment on above: Pattern: Regular 05-28-2017 11:01-0500 Pulse Oximetry 97 % Winnie Cotter [facility] Work Phone: Comment on above: Room air 05-28-2017 11:01-0500 Respiratory Rate 18 /min Petrona Sherman RN [facility] Work Phone: Comment on above: Pattern: Unlabored 05-28-2017 11:01-0500 SaO2% (BldA) [Mass fraction] 97 % Petrona Sherman RN [facility]; [facility] Work Phone: Comment on above: Room air 04-30-2017 16:12-0500 BMI (Body Mass Index) 24.82 kg/m2 Petrona Sherman RN [facility] Work Phone: 04-30-2017 16:12-0500 Body weight 63.56 kg Petrona Sherman RN [facility] Work Phone: 04-30-2017 16:12-0500 BP Diastolic 80 mm[Hg] Petrona Sherman RN [facility] Work Phone: Comment on above: Patient Position: Sitting; Cuff Location : Left Arm; Cuff Size: Standard 04-30-2017 16:12-0500 BP Systolic 122 mm[Hg] Petrona Sherman RN [facility] Work Phone: Comment on above: Patient Position: Sitting; Cuff Location : Left Arm; Cuff Size: Standard 04-30-2017 16:12-0500 BSA (Body Surface Area) 1.66 m2 Petrona Sherman RN [facility] Work Phone: 04-30-2017 16:12-0500 Height 160.02 cm Petrona Sherman RN [facility] Work Phone: 04-30-2017 16:12-0500 Pulse (Heart Rate) 67 /min Petrona Sherman RN [facility] Work Phone: Comment on above: Pattern: Regular 04-30-2017 16:12-0500 Pulse Oximetry 96 % Winnie Cotter [facility] Work Phone: Comment on above: Room air 04-30-2017 16:12-0500 Respiratory Rate 18 /min Petrona Sherman RN [facility] Work Phone: Comment on above: Pattern: Unlabored 04-30-2017 16:12-0500 SaO2% (BldA) [Mass fraction] 96 % Petrona Sherman RN [facility]; [facility] Work Phone: Comment on above: Room air 10-31-2016 10:16-0400 BMI (Body Mass Index) 24.82 kg/m2 Prabha Slarb 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 [facility] Work Phone: 10-31-2016 10:16-0400 Body Temperature 98.8 [degF] Prabha Slarb 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 [facility] Work Phone: 10-31-2016 10:16-0400 Body weight 63.56 kg Prabha Slarb 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 [facility] Work Phone: 10-31-2016 10:16-0400 BP Diastolic 76 mm[Hg] Prabha Slarb 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 [facility] Work Phone: Comment on above: Patient Position: Sitting; Cuff Location : Left Arm; Cuff Size: Standard 10-31-2016 10:16-0400 BP Systolic 118 mm[Hg] Prabha Slarb 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 [facility] Work Phone: Comment on above: Patient Position: Sitting; Cuff Location : Left Arm; Cuff Size: Standard 10-31-2016 10:16-0400 BSA (Body Surface Area) 1.66 m2 Prabha Slarb 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 [facility] Work Phone: 10-31-2016 10:16-0400 Height 160.02 cm Prabha Slarb 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 [facility] Work Phone: 10-31-2016 10:16-0400 Pulse (Heart Rate) 68 /min Prabha Slarb 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 [facility] Work Phone: Comment on above: Pattern: Regular 10-31-2016 10:16-0400 Pulse Oximetry 97 % Winnie Cotter [facility] Work Phone: Comment on above: Room air 10-31-2016 10:16-0400 Respiratory Rate 16 /min Prabha Slarb 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 [facility] Work Phone: Comment on above: Pattern: Unlabored 10-31-2016 10:16-0400 SaO2% (BldA) [Mass fraction] 97 % Prabha Slarb 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 [facility]; [facility] Work Phone: Comment on above: Room air 08-14-2016 15:30-0500 BMI (Body Mass Index) 24.82 kg/m2 Prabha Slarb 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 [facility] Work Phone: 08-14-2016 15:30-0500 Body Temperature 97.6 [degF] Prabha Slarb 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 [facility] Work Phone: 08-14-2016 15:30-0500 Body weight 63.56 kg Prabha Slarb 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 [facility] Work Phone: 08-14-2016 15:30-0500 BP Diastolic 82 mm[Hg] Prabha Slarb 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 [facility] Work Phone: Comment on above: Patient Position: Sitting; Cuff Location : Left Arm; Cuff Size: Standard 08-14-2016 15:30-0500 BP Systolic 124 mm[Hg] Prabha Slarb 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 [facility] Work Phone: Comment on above: Patient Position: Sitting; Cuff Location : Left Arm; Cuff Size: Standard 08-14-2016 15:30-0500 BSA (Body Surface Area) 1.66 m2 Prabha Slarb 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 [facility] Work Phone: 08-14-2016 15:30-0500 Height 160.02 cm Prabha Slarb 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 [facility] Work Phone: 08-14-2016 15:30-0500 Pulse (Heart Rate) 75 /min Prabha Slarb 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 [facility] Work Phone: Comment on above: Pattern: Regular 08-14-2016 15:30-0500 Pulse Oximetry 96 % Winnie Cotter [facility] Work Phone: Comment on above: Room air 08-14-2016 15:30-0500 Respiratory Rate 18 /min Prabha Ng LPN [facility] Work Phone: Comment on above: Pattern: Unlabored 08-14-2016 15:30-0500 SaO2% (BldA) [Mass fraction] 96 % Prabha Ng LPN [facility]; [facility] Work Phone: Comment on above: Room air 05-08-2016 15:27-0500 BMI (Body Mass Index) 24.33 kg/m2 Petrona Sherman RN [facility] Work Phone: 05-08-2016 15:27-0500 Body weight 62.31 kg Petrona Sherman RN [facility] Work Phone: 05-08-2016 15:27-0500 BP Diastolic 80 mm[Hg] Petrona Sherman RN [facility] Work Phone: Comment on above: Patient Position: Sitting; Cuff Location : Left Arm; Cuff Size: Large 05-08-2016 15:27-0500 BP Systolic 122 mm[Hg] Petrona Sherman RN [facility] Work Phone: Comment on above: Patient Position: Sitting; Cuff Location : Left Arm; Cuff Size: Large 05-08-2016 15:27-0500 BSA (Body Surface Area) 1.65 m2 Petrona Sherman RN [facility] Work Phone: 05-08-2016 15:27-0500 Height 160.02 cm Petrona Sherman RN [facility] Work Phone: 05-08-2016 15:27-0500 Pulse (Heart Rate) 65 /min Petrona Sherman RN [facility] Work Phone: Comment on above: Pattern: Regular 05-08-2016 15:27-0500 Pulse Oximetry 97 % Winnie Cotter [facility] Work Phone: Comment on above: Room air 05-08-2016 15:27-0500 Respiratory Rate 18 /min Petrona Sherman RN [facility] Work Phone: Comment on above: Pattern: Unlabored 05-08-2016 15:27-0500 SaO2% (BldA) [Mass fraction] 97 % Petrona Sherman RN [facility]; [facility] Work Phone: Comment on above: Room air 03-30-2016 09:34-0400 BMI (Body Mass Index) 23.83 kg/m2 Petrona Sherman RN [facility] Work Phone: 03-30-2016 09:34-0400 Body weight 61.01 kg Petrona Sherman RN [facility] Work Phone: 03-30-2016 09:34-0400 BP Diastolic 82 mm[Hg] Petrona Sherman RN [facility] Work Phone: Comment on above: Patient Position: Sitting; Cuff Location : Left Arm; Cuff Size: Standard 03-30-2016 09:34-0400 BP Systolic 128 mm[Hg] Petrona Sherman RN [facility] Work Phone: Comment on above: Patient Position: Sitting; Cuff Location : Left Arm; Cuff Size: Standard 03-30-2016 09:34-0400 BSA (Body Surface Area) 1.63 m2 Petrona Sherman RN [facility] Work Phone: 03-30-2016 09:34-0400 Height 160.02 cm Petrona Sherman RN [facility] Work Phone: 03-30-2016 09:34-0400 Pulse (Heart Rate) 81 /min Petrona Shermna RN [facility] Work Phone: Comment on above: Pattern: Regular 03-30-2016 09:34-0400 Pulse Oximetry 98 % Winnie Cotter [facility] Work Phone: Comment on above: Room air 03-30-2016 09:34-0400 Respiratory Rate 18 /min Petrona Sherman RN [facility] Work Phone: Comment on above: Pattern: Unlabored 03-30-2016 09:34-0400 SaO2% (BldA) [Mass fraction] 98 % Petrona Sherman RN [facility]; [facility] Work Phone: Comment on above: Room air 02-17-2016 11:19-0400 BMI (Body Mass Index) 23.4 kg/m2 Petrona Sherman RN [facility] Work Phone: 02-17-2016 11:19-0400 Body weight 59.93 kg Petrona Sherman RN [facility] Work Phone: 02-17-2016 11:19-0400 BP Diastolic 88 mm[Hg] Petrona Sherman RN [facility] Work Phone: Comment on above: Patient Position: Sitting; Cuff Location : Left Arm; Cuff Size: Standard 02-17-2016 11:19-0400 BP Systolic 136 mm[Hg] Petrona Sherman RN [facility] Work Phone: Comment on above: Patient Position: Sitting; Cuff Location : Left Arm; Cuff Size: Standard 02-17-2016 11:19-0400 BSA (Body Surface Area) 1.62 m2 Petrona Sherman RN [facility] Work Phone: 02-17-2016 11:19-0400 Height 160.02 cm Petrona Sherman RN [facility] Work Phone: 02-17-2016 11:19-0400 Pulse (Heart Rate) 96 /min Petrona Sherman RN [facility] Work Phone: Comment on above: Pattern: Regular 02-17-2016 11:19-0400 Pulse Oximetry 99 % Winnie Ragini [facility] Work Phone: Comment on above: Room air 02-17-2016 11:19-0400 Respiratory Rate 18 /min Petrona Sherman RN [facility] Work Phone: Comment on above: Pattern: Unlabored 02-17-2016 11:19-0400 SaO2% (BldA) [Mass fraction] 99 % Petrona Sherman RN [facility]; [facility] Work Phone: Comment on above: Room air 07-13-2015 11:46-0500 BMI (Body Mass Index) 24.09 kg/m2 Sierra Palacios CMA [facility] Work Phone: 07-13-2015 11:46-0500 Body Temperature 98.6 [degF] Sierra Palacios [facility] Work Phone: Comment on above: Method: Temporal 07-13-2015 11:46-0500 Body weight 61.69 kg Sierra Palacios [facility] Work Phone: 07-13-2015 11:46-0500 BP Diastolic 70 mm[Hg] Sierra Palacios [facility] Work Phone: Comment on above: Patient Position: Sitting; Cuff Location : Left Arm; Cuff Size: Standard 07-13-2015 11:46-0500 BP Systolic 115 mm[Hg] Sierra Palacios [facility] Work Phone: Comment on above: Patient Position: Sitting; Cuff Location : Left Arm; Cuff Size: Standard 07-13-2015 11:46-0500 BSA (Body Surface Area) 1.64 m2 Sierra Palacios [facility] Work Phone: 07-13-2015 11:46-0500 Height 160.02 cm Sierra Palacios [facility] Work Phone: 07-13-2015 11:46-0500 Pulse (Heart Rate) 78 /min Sierra Palacios [facility] Work Phone: Comment on above: Pattern: Regular 07-13-2015 11:46-0500 Pulse Oximetry 98 % Winnie Ragini [facility] Work Phone: Comment on above: Room air 07-13-2015 11:46-0500 Respiratory Rate 16 /min Sierra Palacios [facility] Work Phone: Comment on above: Pattern: Unlabored 07-13-2015 11:46-0500 SaO2% (BldA) [Mass fraction] 98 % Sierra Palacios [facility]; [facility] Work Phone: Comment on above: Room air 06-21-2015 15:43-0500 BMI (Body Mass Index) 24.62 kg/m2 Prabha Ng LPN [facility] Work Phone: 06-21-2015 15:43-0500 Body Temperature 97.6 [degF] Prabha Ng LPN [facility] Work Phone: 06-21-2015 15:43-0500 Body weight 63.05 kg Prabha Marilynrb 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 [facility] Work Phone: 06-21-2015 15:43-0500 BP Diastolic 78 mm[Hg] Prabha Slarb 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 [facility] Work Phone: Comment on above: Patient Position: Sitting; Cuff Location : Left Arm; Cuff Size: Standard 06-21-2015 15:43-0500 BP Systolic 116 mm[Hg] Prabha Slarb 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 [facility] Work Phone: Comment on above: Patient Position: Sitting; Cuff Location : Left Arm; Cuff Size: Standard 06-21-2015 15:43-0500 BSA (Body Surface Area) 1.66 m2 Prabha Slarb 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 [facility] Work Phone: 06-21-2015 15:43-0500 Height 160.02 cm Prabha Marilynrb 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 [facility] Work Phone: 06-21-2015 15:43-0500 Pulse (Heart Rate) 76 /min Prabha Sandersrb 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 [facility] Work Phone: Comment on above: Pattern: Regular 06-21-2015 15:43-0500 Pulse Oximetry 97 % Winnie Cotter [facility] Work Phone: Comment on above: Room air 06-21-2015 15:43-0500 Respiratory Rate 16 /min Prabha Marilynrb 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 [facility] Work Phone: Comment on above: Pattern: Unlabored 06-21-2015 15:43-0500 SaO2% (BldA) [Mass fraction] 97 % Prabha Slarb 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 [facility]; [facility] Work Phone: Comment on above: Room air 05-31-2015 09:29-0500 BMI (Body Mass Index) 24.27 kg/m2 Eli Meza RN [facility] Work Phone: 05-31-2015 09:29-0500 Body Temperature 98 [degF] Eli Meza RN [facility] Work Phone: Comment on above: Method: Temporal 05-31-2015 09:29-0500 Body weight 62.14 kg Eli Meza RN [facility] Work Phone: 05-31-2015 09:29-0500 BP Diastolic 76 mm[Hg] Eli Meza RN [facility] Work Phone: Comment on above: Patient Position: Sitting; Cuff Location : Left Arm; Cuff Size: Standard 05-31-2015 09:29-0500 BP Systolic 134 mm[Hg] Eli Meza RN [facility] Work Phone: Comment on above: Patient Position: Sitting; Cuff Location : Left Arm; Cuff Size: Standard 05-31-2015 09:29-0500 BSA (Body Surface Area) 1.65 m2 Eli Meza RN [facility] Work Phone: 05-31-2015 09:29-0500 Height 160.02 cm Eli Meza RN [facility] Work Phone: 05-31-2015 09:29-0500 Pulse (Heart Rate) 79 /min Eli Meza RN [facility] Work Phone: Comment on above: Pattern: Regular 05-31-2015 09:29-0500 Pulse Oximetry 97 % Winnie Ragini [facility] Work Phone: Comment on above: Room air 05-31-2015 09:29-0500 Respiratory Rate 16 /min Eli Meza RN [facility] Work Phone: Comment on above: Pattern: Unlabored 05-31-2015 09:29-0500 SaO2% (BldA) [Mass fraction] 97 % Eli Meza RN [facility]; [facility] Work Phone: Comment on above: Room air 05-17-2015 15:14-0500 BMI (Body Mass Index) 24.27 kg/m2 MIGUELITO Hernandez LPN [facility] Work Phone: 05-17-2015 15:14-0500 Body Temperature 97.9 [degF] MIGUELITO Hernandez LPN [facility] Work Phone: Comment on above: Method: Temporal 05-17-2015 15:14-0500 Body weight 62.14 kg MIGUELITO Hernandez LPN [facility] Work Phone: 05-17-2015 15:14-0500 BP Diastolic 80 mm[Hg] MIGUELITO Hernandez LPN [facility] Work Phone: Comment on above: Patient Position: Sitting; Cuff Location : Left Arm; Cuff Size: Standard 05-17-2015 15:14-0500 BP Systolic 120 mm[Hg] MIGUELITO Hernandez 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 [facility] Work Phone: Comment on above: Patient Position: Sitting; Cuff Location : Left Arm; Cuff Size: Standard 05-17-2015 15:14-0500 BSA (Body Surface Area) 1.65 m2 MIGUELITO Hernandez ANNA [facility] Work Phone: 05-17-2015 15:14-0500 Height 160.02 cm MIGUELITO Hernandez 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 [facility] Work Phone: 05-17-2015 15:14-0500 Pulse (Heart Rate) 74 /min MIGUELITO Hernandez LPN [facility] Work Phone: Comment on above: Pattern: Regular 05-17-2015 15:14-0500 Pulse Oximetry 98 % Winnie Cotter [facility] Work Phone: Comment on above: Room air 05-17-2015 15:14-0500 Respiratory Rate 18 /min MIGUELITO Hernandez LPN [facility] Work Phone: Comment on above: Pattern: Unlabored 05-17-2015 15:14-0500 SaO2% (BldA) [Mass fraction] 98 % MIGUELITO Hernandez 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 [facility]; [facility] Work Phone: Comment on above: Room air 09-14-2014 15:26-0400 BMI (Body Mass Index) 24.69 kg/m2 Petrona Sherman RN [facility] Work Phone: 09-14-2014 15:26-0400 Body weight 63.22 kg Petrona Sherman RN [facility] Work Phone: 09-14-2014 15:26-0400 BP Diastolic 80 mm[Hg] Petrona Sherman RN [facility] Work Phone: Comment on above: Patient Position: Sitting; Cuff Location : Left Arm; Cuff Size: Standard 09-14-2014 15:26-0400 BP Systolic 128 mm[Hg] Petrona Sherman RN [facility] Work Phone: Comment on above: Patient Position: Sitting; Cuff Location : Left Arm; Cuff Size: Standard 09-14-2014 15:26-0400 BSA (Body Surface Area) 1.66 m2 Petrona Sherman RN [facility] Work Phone: 09-14-2014 15:26-0400 Height 160.02 cm Petrona Sherman RN [facility] Work Phone: 09-14-2014 15:26-0400 Pulse (Heart Rate) 67 /min Petrona Sherman RN [facility] Work Phone: Comment on above: Pattern: Regular 09-14-2014 15:26-0400 Pulse Oximetry 98 % Winnie Ragini [facility] Work Phone: Comment on above: Room air 09-14-2014 15:26-0400 Respiratory Rate 18 /min Petrona Sherman RN [facility] Work Phone: Comment on above: Pattern: Unlabored 09-14-2014 15:26-0400 SaO2% (BldA) [Mass fraction] 98 % Petrona Sherman RN [facility]; [facility] Work Phone: Comment on above: Room air 03-30-2014 15:44-0400 BMI (Body Mass Index) 24.27 kg/m2 Darcy Robledo LPN [facility] Work Phone: 03-30-2014 15:44-0400 Body Temperature 98.8 [degF] Darcy Robledo LPN [facility] Work Phone: Comment on above: Method: Oral 03-30-2014 15:44-0400 Body weight 62.14 kg Dacry Robledo LPN [facility] Work Phone: 03-30-2014 15:44-0400 BP Diastolic 70 mm[Hg] Darcy Robledo LPN [facility] Work Phone: Comment on above: Patient Position: Sitting; Cuff Location : Left Arm; Cuff Size: Standard 03-30-2014 15:44-0400 BP Systolic 124 mm[Hg] Darcy Robledo LPN [facility] Work Phone: Comment on above: Patient Position: Sitting; Cuff Location : Left Arm; Cuff Size: Standard 03-30-2014 15:44-0400 BSA (Body Surface Area) 1.65 m2 Darcy Robledo LPN [facility] Work Phone: 03-30-2014 15:44-0400 Height 160.02 cm Darcylarry Robledo LPN [facility] Work Phone: 03-30-2014 15:44-0400 Pulse (Heart Rate) 66 /min Darcy Venkat CASTILLO [facility] Work Phone: Comment on above: Pattern: Regular 03-30-2014 15:44-0400 Pulse Oximetry 98 % Winnie Cotter [facility] Work Phone: Comment on above: Room air 03-30-2014 15:44-0400 SaO2% (BldA) [Mass fraction] 98 % Darcy Robledo LPN [facility]; [facility] Work Phone: Comment on above: Room air 11-25-2013 15:58-0400 BMI (Body Mass Index) 24.27 kg/m2 Eli Meza RN [facility] Work Phone: 11-25-2013 15:58-0400 Body Temperature 97.6 [degF] Eli Meza RN [facility] Work Phone: Comment on above: Method: Temporal 11-25-2013 15:58-0400 Body weight 62.14 kg Eli Meza RN [facility] Work Phone: 11-25-2013 15:58-0400 BP Diastolic 70 mm[Hg] Eli Meza RN [facility] Work Phone: Comment on above: Patient Position: Sitting; Cuff Location : Left Arm; Cuff Size: Standard 11-25-2013 15:58-0400 BP Systolic 120 mm[Hg] Eli Meza RN [facility] Work Phone: Comment on above: Patient Position: Sitting; Cuff Location : Left Arm; Cuff Size: Standard 11-25-2013 15:58-0400 BSA (Body Surface Area) 1.65 m2 Eli Meza RN [facility] Work Phone: 11-25-2013 15:58-0400 Height 160.02 cm Eli Meza RN [facility] Work Phone: 11-25-2013 15:58-0400 Pulse (Heart Rate) 73 /min Eli Meza RN [facility] Work Phone: Comment on above: Pattern: Regular 11-25-2013 15:58-0400 Pulse Oximetry 98 % Winnie Cotter [facility] Work Phone: Comment on above: Room air 11-25-2013 15:58-0400 Respiratory Rate 16 /min Eli Meza RN [facility] Work Phone: Comment on above: Pattern: Unlabored 11-25-2013 15:58-0400 SaO2% (BldA) [Mass fraction] 98 % Eli Meza RN [facility]; [facility] Work Phone: Comment on above: Room air 02-10-2013 15:13-0400 BMI (Body Mass Index) 23.56 kg/m2 MIGUELITO Hernandez LPN [facility] Work Phone: 02-10-2013 15:13-0400 Body Temperature 97.6 [degF] MIGUELITO Hernandez LPN [facility] Work Phone: Comment on above: Method: Oral 02-10-2013 15:13-0400 Body weight 60.33 kg MIGUELITO Hernandez LPN [facility] Work Phone: 02-10-2013 15:13-0400 BP Diastolic 78 mm[Hg] MIGUELITO Hernandez LPN [facility] Work Phone: Comment on above: Patient Position: Sitting; Cuff Location : Left Arm; Cuff Size: Standard 02-10-2013 15:13-0400 BP Systolic 120 mm[Hg] MIGUELITO Hernandez LPN [facility] Work Phone: Comment on above: Patient Position: Sitting; Cuff Location : Left Arm; Cuff Size: Standard 02-10-2013 15:13-0400 BSA (Body Surface Area) 1.63 m2 MIGUELITO Hernandez LPN [facility] Work Phone: 02-10-2013 15:13-0400 Height 160.02 cm MIGUELITO Hernandez 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 [facility] Work Phone: 02-10-2013 15:13-0400 Pulse (Heart Rate) 72 /min MIGUELITO Hernandez 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 [facility] Work Phone: Comment on above: Pattern: Regular 02-10-2013 15:13-0400 Respiratory Rate 18 /min MIGUELITO Hernandez [facility] Work Phone: Comment on above: Pattern: Unlabored 01-20-2013 15:46-0400 BMI (Body Mass Index) 23.57 kg/m2 Petrona Sherman RN [facility] Work Phone: 01-20-2013 15:46-0400 Body Temperature 97.6 [degF] Petrona Sherman RN [facility] Work Phone: Comment on above: Method: Tympanic 01-20-2013 15:46-0400 Body weight 60.36 kg Petrona Sherman RN [facility] Work Phone: 01-20-2013 15:46-0400 BP Diastolic 76 mm[Hg] Petrona Sherman RN [facility] Work Phone: Comment on above: Patient Position: Sitting; Cuff Location : Left Arm; Cuff Size: Large 01-20-2013 15:46-0400 BP Systolic 130 mm[Hg] Petrona Sherman RN [facility] Work Phone: Comment on above: Patient Position: Sitting; Cuff Location : Left Arm; Cuff Size: Large 01-20-2013 15:46-0400 BSA (Body Surface Area) 1.63 m2 Petrona Sherman RN [facility] Work Phone: 01-20-2013 15:46-0400 Height 160.02 cm Petrona Sherman RN [facility] Work Phone: 01-20-2013 15:46-0400 Pulse (Heart Rate) 80 /min Petrona Sherman RN [facility] Work Phone: Comment on above: Pattern: Regular 01-20-2013 15:46-0400 Respiratory Rate 16 /min Petrona Sherman RN [facility] Work Phone: Comment on above: Pattern: Unlabored 02-16-2012 14:49-0400 BMI (Body Mass Index) 22.5 kg/m2 Darcy Robledo ANNA [facility] Work Phone: 02-16-2012 14:49-0400 Body Temperature 98.8 [degF] Darcy Robledo 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 [facility] Work Phone: Comment on above: Method: Oral 02-16-2012 14:49-0400 Body weight 57.61 kg Darcy Robledo LPN [facility] Work Phone: 02-16-2012 14:49-0400 BP Diastolic 80 mm[Hg] Darcy Robledo ANNA [facility] Work Phone: Comment on above: Patient Position: Sitting; Cuff Location : Left Arm; Cuff Size: Standard 02-16-2012 14:49-0400 BP Systolic 134 mm[Hg] Darcy Robledo ANNA [facility] Work Phone: Comment on above: Patient Position: Sitting; Cuff Location : Left Arm; Cuff Size: Standard 02-16-2012 14:49-0400 BSA (Body Surface Area) 1.59 m2 Darcy Robledo ANNA [facility] Work Phone: 02-16-2012 14:49-0400 Height 160.02 cm Darcy Robledo LPN [facility] Work Phone: 02-16-2012 14:49-0400 Pulse (Heart Rate) 70 /min Darcy Robledo 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 [facility] Work Phone: Comment on above: Pattern: Regular 02-16-2012 14:49-0400 Respiratory Rate 18 /min Darcy Robledo LPN [facility] Work Phone: 02-13-2012 08:32-0400 BMI (Body Mass Index) 22.5 kg/m2 Darcy Robledo LPN [facility] Work Phone: 02-13-2012 08:32-0400 Body Temperature 98.4 [degF] Darcy Robledo LPN [facility] Work Phone: Comment on above: Method: Oral 02-13-2012 08:32-0400 Body weight 57.61 kg Darcy Robledo LPN [facility] Work Phone: 02-13-2012 08:32-0400 BP Diastolic 72 mm[Hg] Darcy Robledo LPN [facility] Work Phone: Comment on above: Patient Position: Sitting; Cuff Location : Left Arm; Cuff Size: Standard 02-13-2012 08:32-0400 BP Systolic 122 mm[Hg] Darcy Robledo LPN [facility] Work Phone: Comment on above: Patient Position: Sitting; Cuff Location : Left Arm; Cuff Size: Standard 02-13-2012 08:32-0400 BSA (Body Surface Area) 1.59 m2 Darcy Robledo LPN [facility] Work Phone: 02-13-2012 08:32-0400 Height 160.02 cm Darcy Robledo LPN [facility] Work Phone: 02-13-2012 08:32-0400 Pulse (Heart Rate) 70 /min Darcy Robledo LPN [facility] Work Phone: Comment on above: Pattern: Regular 02-13-2012 08:32-0400 Respiratory Rate 17 /min Darcy Robledo LPN [facility] Work Phone: Comment on above: Pattern: Unlabored 04-24-2011 15:18-0500 BMI (Body Mass Index) 22.5 kg/m2 MIGUELITO Hernandez [facility] Work Phone: 04-24-2011 15:18-0500 Body Temperature 97.9 [degF] MIGUELITO Hernandez [facility] Work Phone: Comment on above: Method: Oral 04-24-2011 15:18-0500 Body weight 57.61 kg MIGUELITO Hernandez LPN [facility] Work Phone: 04-24-2011 15:18-0500 BP Diastolic 76 mm[Hg] MIGUELITO Hernandez LPN [facility] Work Phone: Comment on above: Patient Position: Sitting; Cuff Location : Left Arm; Cuff Size: Standard 04-24-2011 15:18-0500 BP Systolic 118 mm[Hg] MIGUELITO Hernandez LPN [facility] Work Phone: Comment on above: Patient Position: Sitting; Cuff Location : Left Arm; Cuff Size: Standard 04-24-2011 15:18-0500 BSA (Body Surface Area) 1.59 m2 MIGUELITO Hernandez LPN [facility] Work Phone: 04-24-2011 15:18-0500 Height 160.02 cm MIGUELITO Hernandez LPN [facility] Work Phone: 04-24-2011 15:18-0500 Pulse (Heart Rate) 64 /min MIGUELITO Hernandez LPN [facility] Work Phone: Comment on above: Pattern: Regular 04-24-2011 15:18-0500 Respiratory Rate 18 /min MIGUELITO Hernandez LPN [facility] Work Phone: Comment on above: Pattern: Unlabored 03-10-2011 08:55-0400 BMI (Body Mass Index) 22.5 kg/m2 MIGUELITO Hernandez LPN [facility] Work Phone: 03-10-2011 08:55-0400 Body Temperature 97.6 [degF] MIGUELITO Hernandez LPN [facility] Work Phone: Comment on above: Method: Oral 03-10-2011 08:55-0400 Body weight 57.61 kg MIGUELITO Hernandez LPN [facility] Work Phone: 03-10-2011 08:55-0400 BP Diastolic 78 mm[Hg] MIGUELITO Hernandez LPN [facility] Work Phone: Comment on above: Patient Position: Sitting; Cuff Location : Left Arm; Cuff Size: Standard 03-10-2011 08:55-0400 BP Systolic 124 mm[Hg] MIGUELITO Hernandez [facility] Work Phone: Comment on above: Patient Position: Sitting; Cuff Location : Left Arm; Cuff Size: Standard 03-10-2011 08:55-0400 BSA (Body Surface Area) 1.59 m2 MIGUELITO Hernandez LPN [facility] Work Phone: 03-10-2011 08:55-0400 Height 160.02 cm MIGUELITO Hernandez LPN [facility] Work Phone: 03-10-2011 08:55-0400 Pulse (Heart Rate) 68 /min MIGUELITO Hernandez [facility] Work Phone: Comment on above: Pattern: Regular 03-10-2011 08:55-0400 Respiratory Rate 18 /min MIGUELITO Hernandez LPN [facility] Work Phone: Comment on above: Pattern: Unlabored 10-31-2010 08:07-0400 BMI (Body Mass Index) 24.1 kg/m2 Darcy Robledo [facility] Work Phone: 10-31-2010 08:07-0400 Body Temperature 97.3 [degF] Darcy Robledo [facility] Work Phone: Comment on above: Method: Oral 10-31-2010 08:07-0400 Body weight 61.72 kg Darcy Robledo [facility] Work Phone: 10-31-2010 08:07-0400 BP Diastolic 74 mm[Hg] Darcy Robledo [facility] Work Phone: Comment on above: Patient Position: Sitting; Cuff Location : Left Arm; Cuff Size: Standard 10-31-2010 08:07-0400 BP Systolic 120 mm[Hg] Darcy Robledo [facility] Work Phone: Comment on above: Patient Position: Sitting; Cuff Location : Left Arm; Cuff Size: Standard 10-31-2010 08:07-0400 BSA (Body Surface Area) 1.64 m2 Darcy Robledo [facility] Work Phone: 10-31-2010 08:07-0400 Height 160.02 cm Darcy Robledo LPN [facility] Work Phone: 10-31-2010 08:07-0400 Pulse (Heart Rate) 72 /min Dracy Robledo LPN [facility] Work Phone: Comment on above: Pattern: Regular 10-31-2010 08:07-0400 Respiratory Rate 17 /min Darcy Robledo LPN [facility] Work Phone: Comment on above: Pattern: Unlabored 09-27-2009 16:23-0400 Body weight 61.72 kg MIGUELITO Hernandez LPN [facility] Work Phone: 09-27-2009 16:23-0400 BP Diastolic 78 mm[Hg] MIGUELITO Hernandez [facility] Work Phone: Comment on above: Patient Position: Sitting; Cuff Location : Left Arm; Cuff Size: Standard 09-27-2009 16:23-0400 BP Systolic 114 mm[Hg] MIGUELITO Hernandez LPN [facility] Work Phone: Comment on above: Patient Position: Sitting; Cuff Location : Left Arm; Cuff Size: Standard 09-27-2009 16:23-0400 Pulse (Heart Rate) 70 /min MIGUELITO Hernandez LPN [facility] Work Phone: Comment on above: Pattern: Regular 09-27-2009 16:23-0400 Respiratory Rate 18 /min MIGUELITO Hernandez LPN [facility] Work Phone: Comment on above: Pattern: Unlabored 08-31-2009 15:33-0400 Body Temperature 97.8 [degF] Darcy Robledo [facility] Work Phone: Comment on above: Method: Oral 08-31-2009 15:33-0400 Body weight 66.23 kg Darcy Robledo 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 [facility] Work Phone: 08-31-2009 15:33-0400 BP Diastolic 72 mm[Hg] Darcy Robledo [facility] Work Phone: Comment on above: Patient Position: Sitting; Cuff Location : Left Arm; Cuff Size: Standard 08-31-2009 15:33-0400 BP Systolic 110 mm[Hg] Darcy Robledo [facility] Work Phone: Comment on above: Patient Position: Sitting; Cuff Location : Left Arm; Cuff Size: Standard 08-31-2009 15:33-0400 Pulse (Heart Rate) 68 /min Darcy Robledo [facility] Work Phone: Comment on above: Pattern: Regular 08-31-2009 15:33-0400 Respiratory Rate 16 /min Darcy Robledo [facility] Work Phone: Comment on above: Pattern: Unlabored 11-17-2008 14:09-0400 Body Temperature 98.2 [degF] MIGUELITO Hernandez [facility] Work Phone: Comment on above: Method: Oral 11-17-2008 14:09-0400 Body weight 0 kg MIGUELITO Hernandez [facility] Work Phone: 11-17-2008 14:09-0400 BP Diastolic 78 mm[Hg] MIGUELITO Hernandez [facility] Work Phone: Comment on above: Patient Position: Sitting; Cuff Location : Left Arm; Cuff Size: Standard 11-17-2008 14:09-0400 BP Systolic 120 mm[Hg] MIGUELITO Hernandez [facility] Work Phone: Comment on above: Patient Position: Sitting; Cuff Location : Left Arm; Cuff Size: Standard 11-17-2008 14:09-0400 Head Circumference 0 cm Winnie Cotter [facility] Work Phone: 11-17-2008 14:09-0400 Head Occipital-frontal circumference 0 cm MIGUELITO Hernandez [facility]; [facility] Work Phone: 11-17-2008 14:09-0400 Height 0 cm MIGUELITO Hernandez [facility] Work Phone: 11-17-2008 14:09-0400 Pulse (Heart Rate) 70 /min MIGUELITO Hernandez [facility] Work Phone: Comment on above: Pattern: Regular 11-17-2008 14:09-0400 Respiratory Rate 16 /min MIGUELITO Hernandez LPN [facility] Work Phone: Comment on above: Pattern: Unlabored 10-08-2007 15:58-0400 Body Temperature 100.3 [degF] MIGUELITO Hernandez LPN [facility] Work Phone: Comment on above: Method: Oral 10-08-2007 15:58-0400 Body weight 0 kg MIGUELITO Hernandez LPN [facility] Work Phone: 10-08-2007 15:58-0400 BP Diastolic 70 mm[Hg] MIGUELITO Hernandez LPN [facility] Work Phone: Comment on above: Patient Position: Sitting; Cuff Location : Left Arm; Cuff Size: Standard 10-08-2007 15:58-0400 BP Systolic 118 mm[Hg] MIGUELITO Hernandez LPN [facility] Work Phone: Comment on above: Patient Position: Sitting; Cuff Location : Left Arm; Cuff Size: Standard 10-08-2007 15:58-0400 Head Circumference 0 cm Winnie Cotter [facility] Work Phone: 10-08-2007 15:58-0400 Head Occipital-frontal circumference 0 cm MIGUELITO Hernandez LPN [facility]; [facility] Work Phone: 10-08-2007 15:58-0400 Height 0 cm MIGUELITO Hernandez LPN [facility] Work Phone: 10-08-2007 15:58-0400 Pulse (Heart Rate) 76 /min MIGUELITO Hernandez LPN [facility] Work Phone: Comment on above: Pattern: Regular 10-08-2007 15:58-0400 Respiratory Rate 18 /min MIGUELITO Henrandez LPN [facility] Work Phone: Comment on above: Pattern: Unlabored 08-26-2007 15:32-0400 Body Temperature 97.6 [degF] MIGUELITO Hernandez LPN [facility] Work Phone: Comment on above: Method: Oral 08-26-2007 15:32-0400 Body weight 66.23 kg MIGUELITO Hernandez LPN [facility] Work Phone: 08-26-2007 15:32-0400 BP Diastolic 70 mm[Hg] MIGUELITO Hernandez [facility] Work Phone: Comment on above: Patient Position: Sitting; Cuff Location : Left Arm; Cuff Size: Standard 08-26-2007 15:32-0400 BP Systolic 110 mm[Hg] MIGUELITO Hernandez LPN [facility] Work Phone: Comment on above: Patient Position: Sitting; Cuff Location : Left Arm; Cuff Size: Standard 08-26-2007 15:32-0400 Head Circumference 0 cm Winnie Ctoter [facility] Work Phone: 08-26-2007 15:32-0400 Head Occipital-frontal circumference 0 cm MIGUELITO Hernandez 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 [facility]; [facility] Work Phone: 08-26-2007 15:32-0400 Height 0 cm MIGUELITO Hernandez [facility] Work Phone: 08-26-2007 15:32-0400 Pulse (Heart Rate) 64 /min MIGUELITO Hernandez [facility] Work Phone: Comment on above: Pattern: Regular 08-26-2007 15:32-0400 Respiratory Rate 18 /min MIGUELITO Hernandez 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 [facility] Work Phone: Comment on above: Pattern: Unlabored 11-01-2006 12:52-0400 BMI (Body Mass Index) 23.03 kg/m2 Blank Gomez [facility] Work Phone: 11-01-2006 12:52-0400 Body weight 58.97 kg Blank Gomez [facility] Work Phone: 11-01-2006 12:52-0400 BP Diastolic 64 mm[Hg] Blank Gomez [facility] Work Phone: Comment on above: Patient Position: Sitting; Cuff Location : Left Arm; Cuff Size: Standard 11-01-2006 12:52-0400 BP Systolic 108 mm[Hg] Blank Gomez [facility] Work Phone: Comment on above: Patient Position: Sitting; Cuff Location : Left Arm; Cuff Size: Standard 11-01-2006 12:52-0400 BSA (Body Surface Area) 1.[address] [facility] Work Phone: 11-01-2006 12:52-0400 Head Circumference 0 cm Winnie Cotter [facility] Work Phone: 11-01-2006 12:52-0400 Head Occipital-frontal circumference 0 cm Blank Gomez [facility]; [facility] Work Phone: 11-01-2006 12:52-0400 Height 160.[address] [facility] Work Phone: 11-01-2006 12:52-0400 Pulse (Heart Rate) 66 /min Blank [facility] Work Phone: Comment on above: Pattern: Regular 11-01-2006 12:52-0400 Respiratory Rate 16 /min Blank [facility] Work Phone: Comment on above: Pattern: Unlabored 10-18-2006 09:12-0400 BMI (Body Mass Index) 23.03 kg/m2 Blank Gomez [facility] Work Phone: 10-18-2006 09:12-0400 Body Temperature 98.2 [degF] Blank [facility] Work Phone: Comment on above: Method: Undefined 10-18-2006 09:12-0400 Body weight 58.[address] [facility] Work Phone: 10-18-2006 09:12-0400 BP Diastolic 90 mm[Hg] [facility] Work Phone: Comment on above: Patient Position: Sitting; Cuff Location : Left Arm; Cuff Size: Standard 10-18-2006 09:12-0400 BP Systolic 130 mm[Hg] Blank [facility] Work Phone: Comment on above: Patient Position: Sitting; Cuff Location : Left Arm; Cuff Size: Standard 10-18-2006 09:12-0400 BSA (Body Surface Area) 1.[address] [facility] Work Phone: 10-18-2006 09:12-0400 Head Circumference 0 cm Winnie Cotter [facility] Work Phone: 10-18-2006 09:12-0400 Head Occipital-frontal circumference 0 cm Blank Gomez [facility]; [facility] Work Phone: 10-18-2006 09:12-0400 Height 160.[address] [facility] Work Phone: 10-18-2006 09:12-0400 Pulse (Heart Rate) 78 /min Blank [facility] Work Phone: Comment on above: Pattern: Regular 10-18-2006 09:12-0400 Respiratory Rate 16 /min Blank Gomez [facility] Work Phone: Comment on above: Pattern: Unlabored 08-20-2006 16:23-0500 BMI (Body Mass Index) 23.03 kg/m2 MIGUELITO Hernandez LPN [facility] Medicine Work Phone: 08-20-2006 16:23-0500 Body Temperature 97.6 [degF] MIGUELITO Hernandez [facility] Work Phone: Comment on above: Method: Oral 08-20-2006 16:23-0500 Body weight 58.97 kg MIGUELITO Hernandez 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 [facility] Work Phone: 08-20-2006 16:23-0500 BP Diastolic 80 mm[Hg] MIGUELITO Hernandez [facility] Work Phone: Comment on above: Patient Position: Sitting; Cuff Location : Left Arm; Cuff Size: Standard 08-20-2006 16:23-0500 BP Systolic 124 mm[Hg] MIGUELITO Hernandez 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 [facility] Work Phone: Comment on above: Patient Position: Sitting; Cuff Location : Left Arm; Cuff Size: Standard 08-20-2006 16:23-0500 BSA (Body Surface Area) 1.61 m2 MIGUELITO Hernandez LPN [facility] Work Phone: 08-20-2006 16:23-0500 Head Circumference 0 cm Winnie Cotter [facility] Work Phone: 08-20-2006 16:23-0500 Head Occipital-frontal circumference 0 cm MIGUELITO Hernandez LPN [facility]; [facility] Work Phone: 08-20-2006 16:23-0500 Height 160.02 cm MIGUELITO Hernandez LPN [facility] Work Phone: 08-20-2006 16:23-0500 Pulse (Heart Rate) 72 /min MIGUELITO Hernandez LPN [facility] Work Phone: Comment on above: Pattern: Regular 08-20-2006 16:23-0500 Respiratory Rate 20 /min MIGUELITO Hernandez LPN [facility] Work Phone: Comment on above: Pattern: Unlabored Encounters Encounter Date Encounter Type Care Provider Facility Start: 11-21-2021 End: 11-21-2021 Office outpatient visit 25 minutes Winnie Ragini DO Work Phone: [facility] Start: 11-21-2021 Review Winnieraj Harriso n DO Work Phone: [facility] Start: 08-17-2021 End: 08-17-2021 Office outpatient visit 15 minutes Winnie Ragini DO Work Phone: [facility] Start: 06-20-2021 End: 06-20-2021 Prescription Refill Winnie Ragini DO Work Phone: [facility] [...] 05-20-2021 Office outpatient visit 15 minutes Winnie Cotter DO Work Phone: [facility] Start: 04-22-2020 End: 04-22-2020 Office outpatient visit 15 minutes Winnie [facility] Start: 03-15-2020 Review Winnie Cotter [facility] Start: 03-03-2019 End: 03-03-2019 Office outpatient visit 15 minutes Winnie Cotter [facility] Start: 10-21-2018 End: 10-21-2018 Office outpatient visit 10 minutes Winnie Cotter [facility] Start: 09-18-2018 Patient encounter procedure Winnie Hilton [facility] Start: 09-18-2018 End: 09-18-2018 Office outpatient visit 15 minutes Winnie Hilton [facility] Start: 11-05-2017 End: 11-05-2017 Office outpatient visit 15 minutes Winnie Cotter [facility] Start: 10-22-2017 End: 10-22-2017 Office outpatient visit 15 minutes Winnie Cotter [facility] Start: 10-15-2017 End: 10-15-2017 Office outpatient visit 15 minutes Winnie Hilton [facility] Start: 05-28-2017 End: 05-28-2017 Office outpatient visit 10 minutes Winnie Hilton [facility] Start: 04-30-2017 End: 04-30-2017 Office outpatient visit 15 minutes Winnie Cotter [facility] Start: 10-31-2016 End: 10-31-2016 Office outpatient visit 10 minutes Winnie Hilton [facility] Start: 08-14-2016 End: 08-14-2016 Office outpatient visit 15 minutes Winnie Hilton [facility] Start: 05-08-2016 End: 05-08-2016 Office outpatient visit 10 minutes Winnie Hilton [facility] Start: 03-30-2016 End: 03-30-2016 Office outpatient visit 15 minutes Winnie Hilton [facility] Start: 02-17-2016 End: 02-17-2016 Office outpatient visit 15 minutes Winnie Cotter [facility] Start: 07-13-2015 End: 07-13-2015 Office outpatient visit 25 minutes Winnie Cotter [facility] Start: 06-21-2015 End: 06-21-2015 Office outpatient visit 15 minutes Winnie Ragini [facility] Start: 05-31-2015 End: 05-31-2015 Phone Encounter Winnieraj Harrisene [facility] [facility] Start: 05-31-2015 End: 05-31-2015 Office outpatient visit 15 minutes Winnie Ragini [facility] Start: 05-17-2015 End: 05-17-2015 Patient encounter status Winnie Cotter DO Work Phone: [facility] Start: 05-17-2015 End: 05-17-2015 Periodic preventive med est patient 18-39 yrs Winnie Ragini [facility] Start: 05-17-2015 End: 05-17-2015 Preprocedural examination done Winnie Cotter DO Work Phone: [facility] Start: 09-14-2014 End: 09-14-2014 Office outpatient visit 15 minutes Winnie Cotter [facility] Start: 03-30-2014 End: 03-30-2014 Office outpatient visit 25 minutes Winnie Cotter [facility] Start: 02-26-2014 End: 02-26-2014 Lab Order Winnie Hilton [facility] [employer] Start: 11-25-2013 End: 11-27-2013 Patient encounter procedure Winnie Hilton [facility] Start: 02-10-2013 End: 02-10-2013 Patient encounter procedure Winnie Cotter [facility] Start: 01-20-2013 End: 01-20-2013 Patient encounter procedure Winnie Hilton [facility] Start: 02-26-2012 End: 02-26-2012 Phone Encounter Winnie Hilton [facility] [employer] [facility] Start: 02-16-2012 End: 02-16-2012 Office outpatient visit 10 minutes Winnie Hilton [facility] Start: 02-13-2012 End: 02-13-2012 Annotation/Addendum Winnie Hilton [facility] [facility] Start: 02-13-2012 End: 02-13-2012 Office outpatient visit 15 minutes Winnie Hilton [facility] Start: 08-10-2011 End: 08-10-2011 Phone Encounter Winnie Hilton [facility] [employer] Start: 04-24-2011 End: 04-24-2011 Patient encounter procedure Winnie Cotter [facility] Start: 03-10-2011 End: 03-10-2011 Patient encounter procedure Winnie Cotter [facility] Start: 03-09-2011 End: 03-09-2011 Phone Encounter Winnie Cotter [facility] [employer] [facility] Medicine Start: 02-22-2011 End: 02-22-2011 Phone Encounter Winnie Cotter [facility] [employer] [facility] Medicine Start: 10-31-2010 End: 10-31-2010 Office outpatient visit 25 minutes Winnieraj Cotter [facility] Start: 09-27-2009 End: 09-27-2009 Office outpatient visit 15 minutes Winnie Cotter [facility] Start: 08-31-2009 End: 08-31-2009 Office outpatient visit 10 minutes Winnieraj Cotter [facility] Start: 11-17-2008 End: 11-17-2008 Patient encounter procedure Winnie Cotter [facility] Start: 10-08-2007 End: 10-08-2007 Patient encounter procedure Winnie Cotter [facility] Start: 08-26-2007 End: 08-26-2007 Patient encounter procedure Winnie Cotter [facility] Start: 11-01-2006 End: 11-01-2006 Patient encounter procedure Winnie Cotter [facility] Start: 10-18-2006 End: 10-18-2006 Patient encounter procedure Winnie Cotter [facility] Start: 08-20-2006 End: 08-20-2006 Patient encounter procedure Winnie Cotter [facility] Start: 08-17-2006 End: 08-17-2006 Historical Summary Winnie Cotter [facility] Patient encounter status Tomeka Santoyo MA [facility]; [facility] Work Phone: Comment on above: had lipids [facility] does mammo and willbe having paola End: 02-17-2016 Patient encounter status Petrona Sherman RN [facility]; [facility] Work Phone: Patient encounter status Prabha Ng LPN [facility]; [facility] Work Phone: Comment on above: had lipids at [facility] good. does mammo and willbe having paola Patient encounter status Tomeka Santoyo MA [facility]; [facility] Work Phone: Comment on above: had lipids at [facility] good. does mammo and willbe having paola Patient encounter status Tomeka Santoyo MARLENY [facility]; [facility] Work Phone: Comment on above: had lipids at [facility] good. does mammo and willbe having paola End: 02-17-2016 Preprocedural examination done Petrona Sherman RN [facility]; [facility] Work Phone: Comment on above: Dr. harden at [facility]. low risk. Procedures Date Procedure Procedure Detail Performing Clinician Start: 09-27-2021 End: 09-27-2021 SCRN MAMM (CAD)W/AMY BILAT Comments: See Note; NOTES: [facility] Imaging Services [address] [place] [address] SCRN MAMM (CAD)W/AMY BILAT MR#: [id number] Acct: [id number] Name: KARLA BRIONES Rep #: [id number] : 1955 F 66 From: Rocky plaza MD PCP: Dr. Winnie Cotter, DO Status: REG CLI Study: SCRN MAMM (CAD)W/AMY BILAT Date of Exam: 09/16 08/09 Exam# [id number] Ordering Dr: Devora Troncoso MD MAMMOGRAPHY - [...] delay biopsy of a clinically suspicious abnormality. [id number] Electronically Signed: Rocky Lunsford MD at 13:46 EDT Reading Location ID and State: [address] [place] [address] , Service support , CC: Dr. Winnie Cotter DO; Dr. Devora Sheehan MD Supervisor Stave Cutting: Signed Winnie Cotter DO Work Phone: Start: 08-09-2021 End: 08-09-2021 Bone Scan Whole Body Comments: See Note; NOTES: [facility] Imaging Services [address] [place] [address] Bone Scan Whole Body MR#: [id number] Acct: [id number] Name: KARLA BRIONES Rep #: [id number] : 1955 F 65 From: Fabiano Verduzco PCP: Dr. Winnie Cotter DO Status: REG CLI Study: Bone Scan Whole Body Date of Exam: 08/09/21 Exam# [id number] Ordering Dr: Tee Jalloh DO CLINICAL: 65-year-old [...] Signed: Fabiano Byrnes DO at 22:23 EST Reading Location ID and State: [address] [place] [address] Tel , Service support , CC: Dr. Tee Jalloh DO; Dr. Winnie Cotter DO Supervisor Stave Cutting: Signed Winnie Cotter DO Work Phone: Start: 06-20-2021 End: 06-20-2021 HIP, UNI W/ Pelvis 2-3 Views Comments: See Note; NOTES: [facility] Imaging Services [address] [place] [address] HIP, UNI W/ Pelvis 2-3 Views MR#: [id number] Acct: [id number] Name: KARLA BRIONES Rep #: [id number] : 1955 F 65 From: Rocky plaza MD PCP: Dr. Winnie Cotter DO Status: REG CLI Study: HIP, UNI W/ Pelvis 2-3 Views Date of Exam: 09/06 Exam# [id number] Ordering Dr: Winnie Cotter DO STUDY: X-RAY - PELVIS AND LEFT [...] , Service support , CC: Dr. Winnie Cotter DO Supervisor Stave Cutting: Signed Winnie Cotter DO Work Phone: Start: 06-09-2021 End: 06-09-2021 Emergency Department Summary Comments: See Note; NOTES: [facility] Medical Records Department [address] [place] [address] Emergency Department Summary 06/09/21 MR#: [id number] Acct: [id number] Name: KARLA BRIONES Rep #: [id number] : 1955 65 From: Allan Reid MD PCP: Dr. Winnie Cotter DO Status:[facility] ER Location: ED HPI History [...] any weakness, confusion, or other recent illness. [facility] Medical History Hypertension Hypothyroidism Incontinence in [...] 74.8 H Lymph % (Auto) 14.4 L Hand % (Auto) 8.5 Eos % (Auto) 1.3 [...] 60 RF: 0 Primary Care Provider: Winnie Cotter Referrals: Desiree Kamara MD [STAFF PHYSICIAN] - (call for appt next week) Winnie Cotter DO [Primary Care Provider] - Activity Restrictions/Additional Instructions: Limit your fluid intake, including water, to 50-60 ounces per day Disposition Disposition: Home, Self Care What to do if you have Problems For any increased pain, shortness of breath, bleeding, nausea or vomiting, chest pain, or any unexpected problems, contact your Primary Care Provider. Call [facility] ([phone]) or report to the closest Emergency Room. Call 911 if necessary. 06/09/219 <Electronically signed by Allan Reid MD> Cosigner Signature (if applicable): CC: Dr. Winnie Cotter DO Signed Winnie Cotter DO Work Phone: Start: 06-06-2021 End: 06-08-2021 Lumbar Spine 2 or 3 Views Comments: See Note; NOTES: [facility] Imaging Services [address] [place] [address] Lumbar Spine 2 or 3 Views MR#: [id number] Acct: [id number] Name: KARLA BRIONES Rep #: [id number] : 1955 F 65 From: Aravind Toth DO PCP: Dr. Winnie Cotter DO Status: REG CLI Study: Lumbar Spine 2 or 3 Views Date of Exam: Exam# [id number] Ordering Dr: Tita Vargas QUALITY SYSTEM MANAGER QUALITY SYSTEM MANAGER-C STUDY: X-RAY - LUMBAR SPINE REASON FOR [...] support , CC: JONATHAN Vargas; Dr. Winnie Cotter DO Supervisor Stave Cutting: Signed Tita Vargas CNP Work Phone: Start: 05-11-2021 End: 05-11-2021 Emergency Department Summary Comments: See Note; NOTES: [facility] Medical Records Department [address] [place] [address] Emergency Department Summary 05/11/21 MR#: [id number] Acct: [id number] Name: KARLA BRIONES Rep #: [id number] : 1955 65 From: Wan Valenzuela MD PCP: Dr. Winnie Cotter DO Status:REG ER Location: ED HPI History [...] nothing that they could do for her. [facility] Medical History Hypothyroidism Incontinence in female [...] patient with her primary care provider, Dr. Cotter, who would like the patient started on [...] DAILY RF: 0 Primary Care Provider: Winnie Cotter Referrals: Winnie Cotter DO [Primary Care Provider] - 05/17/21 Disposition Disposition: Home, Self Care What to do if you have Problems For any increased pain, shortness of breath, bleeding, nausea or vomiting, chest pain, or any unexpected problems, contact your Primary Care Provider. Call [facility] ([phone]) or report to the closest Emergency Room. Call 911 if necessary. 05/11/21 4328 <Electronically signed by Wan Valenzuela MD> Cosigner Signature (if applicable): CC: Dr. Winnie Cotter DO Signed Winnie Cotter DO Work Phone: Start: 05-11-2021 End: 06-08-2021 Brain/Head without Contrast Comments: See Note; NOTES: [facility] Imaging Services [address] [place] [address] Brain/Head without Contrast MR#: [id number] Acct: [id number] Name: KARLA BRIONES Rep #: [id number] : 1955 F 65 From: Jarek Cheng MD PCP: Dr. Winnie Cotter DO Status: REG ER Study: Brain/Head without Contrast Date of Exam: 04/19 10/06 Exam# [id number] Ordering Dr: Wan Valenzuela MD STUDY: CT [...] CC: Dr. Wan Valenzuela MD; Dr. Winnie Cotter DO Supervisor Stave Cutting: Signed Winnie Cotter DO Work Phone: Start: 05-11-2021 End: 06-08-2021 Spine Cervical without Contras Comments: See Note; NOTES: [facility] Imaging Services [address] [place] [address] Spine Cervical without Contras MR#: [id number] Acct: [id number] Name: KARLA BRIONES Rep #: [id number] : 1955 F 65 From: Jarek Cheng MD PCP: Dr. Winnie Cotter DO Status: REG ER Study: Spine Cervical without Contras Date of Exam: 07/11/20 Exam# [id number] Ordering Dr: Wan Valenzuela MD STUDY: CT [...] , Service support , CC: Dr. Wan Valenuzela MD; Dr. Winnie Cotter DO Supervisor Stave Cutting: Signed Winnie Cotter DO Work Phone: Start: 07-13-2020 End: 07-13-2020 Dexa Bone Density Study Comments: See Note; NOTES: [facility] Imaging Services [address] [place] [address] Dexa Bone Density Study MR#: [id number] Acct: [id number] Name: KARLA BRIONES Rep #: [id number] : 1955 F 64 From: Rocky plaza MD PCP: Dr. Winnie Cotter, Status: [facility] CLI Study: Dexa Bone Density Study Date of Exam: 07/13/20 Exam# [id number] Ordering Dr: Winnie Cotter DO STUDY: DUAL ENERGY X-RAY ABSORPTIOMETRY / DXA REASON FOR EXAM: Female, 64 years old. 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 Winnie oCtter DO Supervisor Stave Cutting: Signed Winnie Cotter DO Work Phone: Start: 07-13-2020 End: 07-13-2020 SCRN MAMM (CAD)W/AMY BILAT Comments: See Note; NOTES: [facility] Imaging Services [address] [place] [address] SCRN MAMM (CAD)W/AMY BILAT MR#: [id number] Acct: [id number] Name: KARLA BRIONES Rep #: [id number] : 1955 F 64 From: Rocky plaza MD PCP: Dr. Winnie Cotter DO Status: REG CLI Study: SCRN MAMM (CAD)W/AMY BILAT Date of Exam: 06/19 12/06 Exam# [id number] Ordering Dr: Winnie Cotter DO MAMMOGRAPHY - BILATERAL SCREENING REASON FOR [...] delay biopsy of a clinically suspicious abnormality. [id number] Electronically Signed: Rocky Lunsford MD at 11:28 EST , Service support , CC: Dr. Winnie Cotter DO Supervisor Stave Cutting: Signed Winnie Cotter DO Work Phone: Start: 05-14-2020 End: 05-18-2020 12 Lead EKG Comments: See Note; NOTES: [facility] Cardiovascular Services [address] [place] [address] 12 Lead EKG 05/14/20 0942 MR#: [id number] Acct: [id number] Name: KARLA BRIONES Rep #: [id number] : 1955 64 From: Serjio Thomas MD Attending Dr: Dr. Jamaal Moise DO Status: RE G CLI Ordering Dr: Jamaal Moise DO Date: 05/14/20 Location: [facility] Sex: F C Admitted: Test Reason : PREOP Blood Pressure : / mmHG Vent. Rate : 076 BPM Atrial Rate : 076 BPM P-R Int : 152 ms QRS Dur : 078 ms QT Int : 378 ms P-R-T Axes : 068 010 043 degrees QTc Int : 425 ms Normal sinus rhythm Normal ECG Confirmed by SERJIO THOMAS MD ([id number]), editor department ANAT AYALA ([id number]) on 05/18/2020 9:28:15 AM Referred By: Jamaal Moise Confirmed By:SERJIO THOMAS MD 05/18/20 0928 Date Serjio Thomas MD CC: Dr. Winnie Cotter DO; Dr. Jamaal Moise DO Signed Winnie Cotter DO Work Phone: Start: 07-07-2019 End: 07-09-2019 SCREEN MAMM (CAD) W/AMY BILAT Comments: See Note; NOTES: [facility] Imaging Services [address] [place] [address] SCREEN MAMM (CAD) W/AMY BILAT MR#: [id number] Acct: [id number] Name: KARLA BRIONES Rep #: [id number] : 1955 F 63 From: Rocky Lunsford MD PCP: Winnie Cotter DO Status: REG CLI Study: SCREEN MAMM (CAD) W/AMY BILAT Date of Exam: 07/07/19 Exam# [id number] Ordering Dr: Devora Franco MD MAMMOGRAPHY - [...] delay biopsy of a clinically suspicious abnormality. [id number] Electronically Signed: Rocky Lunsford, at 11:10 EST , Service support , CC: Winnie Cotter DO; Devora Franco MD Supervisor Stave Cutting: Signed Winnie Cotter Start: 03-06-2019 End: 03-06-2019 Emergency Department Summary Comments: See Note; NOTES: [facility] Medical Records Department [address] [place] [address] Emergency Department Summary 03/06/19 1227 MR#: [id number] Acct: [id number] Name: KARLA BRIONES Rep #: [id number] : 1955 63 From: Sharee Vegas DO PCP: Winnie Cotter DO Status: REG ER - ER Visit [...] current syndrome] This note was generated with Sonianation software. It may contain incorrect words, spelling, and punctuation that were not noted in review of the chart prior to signing ED Disposition - Plan for ED Patient: Referrals: Winnie Cotter DO [Primary Care Provider] - What to do if you have Problems For any increased pain, shortness of breath, bleeding, nausea or vomiting, chest pain, or any unexpected problems, contact your Primary Care Provider. Call [facility] ([phone]) or report to the closest Emergency Room. Call 911 if necessary. 03/06/19 1229 <Electronically signed by Sharee Vegas DO> Date Sharee Vegas DO Cosigner Signature (If Indicated): Date CC: Winnie Singh Start: 03-06-2019 End: 03-06-2019 Chest 1 View (Portable) Comments: See Note; NOTES: [facility] Imaging Services [address] [place] [address] Chest 1 View (Portable) MR#: [id number] Acct: [id number] Name: KARLA BRIONES Rep #: [id number] : 1955 F 63 From: Rocky Lunsford MD PCP: Winnie Cotter DO Status: PRE ER Study: Chest 1 View (Portable) Date of Exam: 03/06/19 Exam# [id number] Ordering Dr: Provider,Ed P. STUDY: X-RAY CHEST REASON FOR EXAM: Female, [...] support , CC: ED PHYSICIAN PROVIDER; Winnie Cotter DO Supervisor Stave Cutting: Signed Winnie Cotter Start: 10-14-2018 End: 10-14-2018 12 lead ECG Comments: See Note; NOTES: [facility] Cardiovascular Services [address] [place] [address] 12 Lead EKG 10/10/18 0739 MR#: [id number] Acct: [id number] Name: KARLA BRIONES Rep #: [id number] : 1955 63 From: Bladimir Cazares MD Attending Dr: Tita Orozco MD Status: DEP [facility] Ordering Dr: Patrick Lara MD Date: 10/10/18 [place] [facility] Sex: F C Admitted: Test Reason : PRE OP Blood Pressure : / mmHG Vent. Rate : 060 BPM Atrial Rate : 060 BPM P-R Int : 152 ms QRS Dur : 082 ms QT Int : 410 ms P-R-T Axes : 079 027 050 degrees QTc Int : 410 ms Normal sinus rhythm Normal ECG Confirmed by SHIV LEUNG, BLADIMIR ([id number]), editor department ANAT AYALA ([id number]) on 10/14/2018 12:39:43 PM Referred By: Tita Orozco Confirmed By:BLADIMIR CAZARES MD 10/14/18 1239 Date Bladimir Cazares MD CC: Patrick Lara MD; Winnie Cotter DO; MD Tita Orozco Signed Winnie Cotter Start: 10-10-2018 End: 10-10-2018 Operative Report Comments: See Note; NOTES: [facility] Medical Records Department [address] [place] [address] Operative Report 10/10/18 1036 MR#: [id number] Acct: [id number] Name: KARLA BRIONES Rep #: [id number] : 1955 63 From: Tita Orozco MD PCP: Winnie Cotter DO Status: REG SDC Y Location: [place] [address] Problem List (1) Vaginal vault prolapse after [...] cystoscopy. No bladder, urethral or rectal injury. 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 The vaginal epithelium overlying the [...] MD> Date Tita Orozco MD CC: Winnie Cotter DO; MD Tita Orozco Signed Winnie Cotter Start: 10-10-2018 End: 10-10-2018 Discharge Instruction Comments: See Note; NOTES: [facility] Medical Records Department [address] [place] [address] Instructions for Home/Discharge Instructions 10/10/18 1034 MR#: [id number] Acct: [id number] Name: ANALIKARLA J Rep #: [id number] : 1955 63 From: Tita Orozco MD PCP: Winnie Cotter DO Status: REG [facility] Discharge Activity: Return to Normal Activity May [...] PO DAILY 10/03/18 Primary Care Physician: Winnie Cotter DO [Primary Care Provider] - Test Results: Test results from this visit will be discussed in further detail at your follow-up appointment, if applicable. Please Follow Up With: Tita Orozco MD When: six weeks Proposed Discharge Date: 10/10/18 10/10/18 1036 <Electronically signed by Tita Orozco MD> Date Tita Orozco MD CC: Winnie Cotter DO Signed Winnie Cotter Start: 07-05-2018 End: 07-08-2018 SCREENING MAMM (CAD), BILAT Comments: See Note; NOTES: [facility] Imaging Services [address] [place] [address] SCREENING MAMM (CAD), BILAT MR#: [id number] Acct: [id number] Name: KARLA BRIONES Rep #: [id number] : 1955 F 62 From: Rocky Lunsford MD PCP: Winnie Cotter DO Status: [facility] Study: SCREENING MAMM (CAD), BILAT Date of Exam: 07/05/18 Exam# [id number] Ordering Dr: Antony Harden MD MAMMOGRAPHY - [...] delay biopsy of a clinically suspicious abnormality. [id number] Electronically Signed: Rocky Lunsford MD at 8:47 EST Tel [phone], Service support , CC: Antony Harden MD; Winnie Cotter DO Supervisor Stave Cutting: Signed Winnie Cotter Start: 10-30-2017 End: 10-30-2017 Spine Thoracic (Routine) Comments: See Note; NOTES: [facility] Imaging Services [address] [place] [address] Spine Thoracic (Routine) MR#: [id number] Acct: [id number] Name: KARLA BRIONES Rep #: [id number] : 1955 F 62 From: Tee Walters MD PCP: Winnie Cotter DO Status: PRE CLI Study: Spine Thoracic (Routine) Date of Exam: 10/30/17 Exam# [id number] Ordering Dr: Winnie Cotter DO STUDY: MRI THORACIC SPINE WITHOUT CONTRAST [...] bulging of the discs at T9-T10 and [id number] without spinal stenosis. Normal visualized thoracic cord. [...] support , CC: Keith Bower MD; Winnie Cotter DO Supervisor Stave Cutting: Signed Winnie Cotter Work Phone: Start: 10-16-2017 End: 10-16-2017 Chest PA and Lateral Comments: See Note; NOTES: [facility] Imaging Services [address] [place] [address] Chest PA and Lateral MR#: [id number] Acct: [id number] Name: KARLA BRIONES Rep #: [id number] : 1955 F 62 From: Neil Box MD PCP: Winnie Cotter DO Status: REG CLI Study: Chest PA and Lateral Date of Exam: 10/16/17 Exam# [id number] Ordering Dr: Winnie Cotter DO STUDY: X-RAY CHEST REASON FOR EXAM: [...] Tel , Service support , CC: Winnie Cotter DO Supervisor Stave Cutting: Signed Winnie Cotter Work Phone: Start: 10-16-2017 End: 10-16-2017 Thoracic Spine 3 Views Comments: See Note; NOTES: [facility] Imaging Services [address] [place] [address] Thoracic Spine 3 Views MR#: [id number] Acct: [id number] Name: KARLA BRIONES Rep #: [id number] : 1955 F 62 From: Neil Box MD PCP: Winnie Cotter DO Status: REG CLI Study: Thoracic Spine 3 Views Date of Exam: 10/16/17 Exam# [id number] Ordering Dr: Winnie Cotter DO STUDY: X-RAY - THORACIC SPINE REASON [...] Tel , Service support , CC: Winnie Cotter DO Supervisor Stave Cutting: Signed Winnie Cotter Work Phone: Start: 10-02-2017 End: 10-03-2017 Dexa Bone Density Study Comments: See Note; NOTES: [facility] Imaging Services [address] [place] [address] Dexa Bone Density Study MR#: [id number] Acct: [id number] Name: KARLA BRIONES Rep #: [id number] : 1955 F 62 From: Rocky Lunsford MD PCP: Winnie Cotter DO Status: REG CLI Study: Dexa Bone Density Study Date of Exam: 10/02/17 Exam# [id number] Ordering Dr: Antony Harden MD STUDY: DUAL ENERGY X-RAY ABSORPTIOMETRY / [...] Rocky Lunsford MD at 8:18 EDT Tel [phone], Service support , CC: Antony Harden MD; Winnie Cotter DO Supervisor Stave Cutting: Signed Winnie Cotter Start: 05-17-2017 End: 05-19-2017 SCREENING MAMM (CAD), BILAT Comments: See Note; NOTES: [facility] Imaging Services [address] [place] [address] SCREENING MAMM (CAD), BILAT MR#: [id number] Acct: [id number] Name: KARLA BRIONES Rep #: [id number] : 1955 F 61 From: Rocky Lunsford MD PCP: Winnie Cotter DO Status: REG CLI Study: SCREENING MAMM (CAD), BILAT Date of Exam: 05/17/17 Exam# [id number] Ordering Dr: Antony Harden MD MAMMOGRAPHY - [...] delay biopsy of a clinically suspicious abnormality. [id number] Electronically Signed: Rocky Lunsford MD at 9:00 EST Tel [phone], Service support , CC: Antony Harden MD; Winnie Cotter DO Supervisor Stave Cutting: Signed Winnie Cotter Start: 08-10-2016 End: 08-10-2016 12 lead ECG Comments: See Note; NOTES: [facility] Cardiovascular Services [address] [place] [address] 12 Lead EKG 08/08/16 1656 MR#: [id number] Acct: [id number] Name: KARLA BRIONES Rep #: [id number] : 1955 60 From: Maco Pinto MD Attending Dr: Jamaal Moise DO Status: REG CLI Ordering Dr: Jamaal Moise DO Date: 08/08/16 Location: [facility] Sex: F C Admitted: Test Reason : PREOP Blood Pressure : / mmHG Vent. Rate : 059 BPM Atrial Rate : 059 BPM P-R Int : 172 ms QRS Dur : 084 ms QT Int : 412 ms P-R-T Axes : 076 042 057 degrees QTc Int : 407 ms Sinus bradycardia Otherwise normal ECG Confirmed by MACO PINTO ([id number]), editor department SMOOTH BRENNER (57) on 08/10/2016 1:11:57 PM Referred By: TAHIRA Confirmed By:MACO PINTO 08/10/16 1312 Date Maoc Pinto MD CC: Winnie Cotter DO Date Dictated: 08/08/161655 Date Transcribed: 08/08/161655 Supervisor Stave Cutting: Signed Winnie Cotter Start: 05-16-2016 End: 05-16-2016 PT D/C Summary (1) Comments: See Note; NOTES: [facility] [address] [place] [address] Fax REHABILITATION SERVICES DISCHARGE SUMMARY MR#: [id number] Acct: [id number] Name: KARLA BRIONES Rep #: [id number] : 1955 60 From: Keith Goldstein PT, Cert. MDT, OCS Referring Dr.: Winnie Cotter DO Status: REG R Insurance: [facility] - PT D/C Summary It has been my pleasure to treat KARLA BRIONES under orders from Winnie Cotter, for the diagnosis of MUSCLE SPASMS ,LEFT [...] please feel free to call me at [phone]. Thank you for the referral of this patient. Sincerely, Keith Goldstein PT, <Electronically signed by Cert. ALIREZA Jeffrey PT, OCS> 05/16/16 0926 CC: Winnie Cotter DO ANIBAL Signed Winnie Cotter Start: 03-31-2016 End: 03-31-2016 Inital Evaluation (1) - PT Comments: See Note; NOTES: [facility] [address] [place], [place] [address] Fax REHABILITATION SERVICES INITIAL EVALUATION MR#: [id number] Acct: [id number] Name: KARLA BRIONES Rep #: [id number] : 1955 60 From: Cert. ALIREZA Jeffrey PT, OCS Referring Dr.: Winnie Cotter DO Status: REG R Insurance: [facility] Patient's Visit Information KRALA BRIONES is a 60 year old F referred to Physical Therapy by Winnie Cotter with a diagnosis of MUSCLE SPASMS ,LEFT [...] shoulder blade ocassional sharp lateral deltoid. 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 SOCAIL: - Pain Left Scapula Pain Intensity (Out of 10): 8 Pain Intensity Range: 10 - Objective POSTURE: rounded shoulders head foward. PALPATION:tender medial border of scapular. AROM CERVICAL : WFL flexion/extension,rotation, lateral flexion min loss. NEURO:inact ,reflexes C5-6 -7. AROM: shoulder flexion /abduction 160 degrees,ER 90 degrees ,IR 75 degrees. MMT: anterior/lateral deltoid 4-/5,RTC /5 - Special Tests C/S Radiculapathy - Left [...] and motor function, To increase tolerance to activity/condition/position , To improve performance and independence with ADL's, To decrease level of supervision to perform tasks, To improve ability of physical actions for home/community/work/leisure , To improve health of tissue, To decrease [...] To improve ability of physical actions for home/community/work/leisure , To improve health of tissue, To increase [...] to be FAXED BACK to us at [phone] for Medicare purposes. Please let me know if there are questions or concerns regarding this plan of care. Physician Signature: Date: <Electronically signed by Keith Goldstein PT, Cert. T, OCS> 03/31/16 0934 CC: Winnie Cotter DO ANIBAL Signed For Medicare only, by signing this I certify the plan of care. _ Physicians Signature Date Winnie Cotter Start: 03-30-2016 End: 03-31-2016 Bilat Scrn Digital AND CAD Comments: See Note; NOTES: [facility] Imaging Services [address] [place], [place] [address] [address] [facility] Bilat Scrn Digital AND CAD MR#: [id number] Acct: [id number] Name: KARLA BRIONES Rep #: [id number] : 1955 F 60 From: Zara Brown MD PCP: Winnie Cotter DO Status: REG CLI Study: Bilat Scrn Digital AND CAD Date of Exam: 03/30/16 Exam# [id number] Ordering Dr: Marilyn York MAMMOGRAPHY - BILATERAL SCREENING REASON FOR EXAM: [...] delay biopsy of a clinically suspicious abnormality. [id number] Electronically Signed: Zara Brown MD at 16:48 EDT Tel , Service support [phone], CC: Marilyn Cotter DO Supervisor Stave Cutting: Signed Winnie Cotter Work Phone: Start: 03-30-2016 End: 03-30-2016 Shoulder min 2 Views Comments: See Note; NOTES: [facility] Imaging Services [address] [place] [address] Verdana 4d Shoulder min 2 Views MR#: [id number] Acct: [id number] Name: KARLA BRIONES Rep #: [id number] : 1955 F 60 From: Hebert Rasmussen MD PCP: Winnie Cotter DO Status: REG CLI Study: Shoulder min 2 Views Date of Exam: 03/30/16 Exam# [id number] Ordering Dr: Winnie Cotter DO STUDY: X-RAY - LEFT SHOULDER REASON [...] FACR at 15:41 EDT , Service support [phone], CC: Winnie Cotter DO Supervisor Stave Cutting: Signed Winnie Harrison Work Phone: Start: 06-30-2015 End: 06-30-2015 Discharge Instruction Comments: See Note; NOTES: [facility] Medical Records Department [address] [place] [address] Instructions for Home/Discharge Instructions 06/30/15 0908 MR#: [id number] Acct: [id number] Name: SUSHIL BRIONESELA Rep #: [id number] : 1955 59 From: Antony Harden MD PCP: Rodney Manzanares MD Status: REG [facility] Discharge Diet: No Restrictions Discharge Activity: May [...] [Multivitamin] 1 tablet PO DAILY 06/24/15 RX: [place]-3 Fatty Acids/Fish Oil [Fish Oil 1,000 mg [...] week Proposed Discharge Date: 07/01/15 06/30/15 0909 <Electronically signed by Antony Harden MD> Date Antony Harden MD CC: Rodney Cotter Start: 06-25-2015 End: 06-25-2015 12 lead ECG Comments: See Note; NOTES: [facility] Cardiovascular Services [address] [place] [address] 12 Lead EKG 06/23/151644 MR#: [id number] Acct: [id number] Name: KARLA BRIONES Rep #: [id number] : 1955 59 From: Maco Pinto MD Attending Dr: Antony Harden MD Status: PRE [facility] Ordering Dr: Antony Harden MD Date: 06/23/15 Location: [facility] Sex: F C Admitted: Test Reason : PRE-OP Blood Pressure : / mmHG Vent. Rate : 060 BPM Atrial Rate : 060 BPM P-R Int : 162 ms QRS Dur : 088 ms QT Int : 412 ms P-R-T Axes : 079 077 070 degrees QTc Int : 412 ms Normal sinus rhythm Normal ECG Confirmed by MACO PINTO ([id number]), editor department SMOOTH BRENNER (57) on 06/25/2015 1:57:03 PM Referred By: COREY Confirmed By:MACO PINTO 06/25/15 1357 Date Maco Pinto MD CC: Rodney Manzanares MD Date Dictated: 06/23/151644 Date Transcribed: 06/23/151644 Supervisor Stave Cutting: Signed Winnie Cotter Start: 06-23-2015 End: 06-23-2015 Chest PA and Lateral Comments: See Note; NOTES: [facility] Imaging Services [address] [place] [address] Verdana 4d Chest PA and Lateral MR#: [id number] Acct: [id number] Name: KARLA BRIONES Rep #: [id number] : 1955 F 59 From: Norberto Abrams DO PCP: Rodney Manzanares MD Status: PRE [facility] Study: Chest PA and Lateral Date of Exam: 06/23/15 Exam# [id number] Ordering Dr: Antony Harden MD STUDY: X-RAY [...] Norberto Abrams DO at 17:03 EST Tel [phone], Service support [phone], RAD/Chest PA and Lateral IMPRESSION: Hyperinflated lungs without acute cardiopulmonary disease or interval change. Electronically Signed: Norberto Abrams DO at 17:03 EST Tel [phone], Service support [phone], CC: Rodney Manzanares MD; Antony Harden MD Supervisor Stave Cutting: Signed Winnie Cotter Start: 06-23-2015 Antibody screen Winnie Cotter Comment on above: Surgery Date: 06/30/15Hx of Preganancy i n last 3 Months NoEver experience any problems with transfusion(s)? NHx of Transfusion in last 3 Months NReason for Type AND Screen/Red Cells: SURGERYSURGICAL PROCEDURE: [facility] [id number] [place], [place], [address] Start: 05-31-2015 End: 05-31-2015 Ecg routine ecg w/least 12 lds w/i&r [MEASUREMENTS ANALYSIS] Date of Test: 05/31/2015 09:41:42; Heart Rate: 69; IN Interval: 148; QRS: 94; QT Interval: 380; Corrected QT Interval (QTc): 395; P Wave [place]: 69; QRS Wave [place]: 46; T Wave [place]: 45; Blood Pressure: 134/76 [ECG DIAGNOSTIC STATEMENTS] Date of Test: 05/31/2015 09:41:42; Summary: Sinus Rhythm Low voltage with rightward P-axis and rotation -possible pulmonary disease. ABNORMAL Tita Elam Noreenmarques Work Phone: Start: 05-17-2015 End: 05-17-2015 Ecg routine ecg w/least 12 lds w/i&r [MEASUREMENTS ANALYSIS] Date of Test: 05/17/2015 15:56:44; Heart Rate: 64; IN Interval: 150; QRS: 91; QT Interval: 392; Corrected QT Interval (QTc): 399; P Wave [place]: 68; QRS Wave [place]: 47; T Wave [place]: 42; Blood Pressure: 120/80 [ECG DIAGNOSTIC STATEMENTS] Date of Test: 05/17/2015 15:56:44; Summary: Sinus Rhythm WITHIN NORMAL LIMITS Rodney Manzanares Work Phone: Comment on above: see scanned document of test done to see results reviewed today with patient Start: 11-17-2014 End: 11-17-2014 PT Discharge Summary Comments: See Note; NOTES: [facility] [address] [place] [address] Fax REHABILITATION SERVICES DISCHARGE SUMMARY MR#: [id number] Acct: [id number] Name: KARLA BRIONES Rep #: [id number] : 1955 59 From: Mery Cruz Referring DrKarey: Winnie Cotter DO Status: DIS RCR Eval Date: Discharge Date: 11/15/14 DATE OF SERVICE: 11/13/2014 SUBJECTIVE: This patient was referred to physical therapy by Dr. Cotter with a diagnosis of cervical radiculopathy. She has been seen in our clinic times a total of 14 visits. Her physical therapy has mainly consisted of therapeutic exercise and intermittent cervical traction to help meet the set goals. She has canceled her last 2 appointments and states that she is no longer having any pain even with work. All physical therapy goals appear to be met and I am discharging her chart at this time. Mery Cruz, PT T: NTS JOB: [id number] <Electronically signed by Mery Cruz > 11/17/14 1524 CC: Signed Winnie Cotter Start: 09-25-2014 End: 09-25-2014 Inital Evaluation - PT Comments: See Note; NOTES: [facility] [address] [place], [place] [address] Fax REHABILITATION SERVICES INITIAL EVALUATION MR#: [id number] Acct: [id number] Name: KARLA BRIONES Rep #: [id number] : 1955 59 From: Mery Cruz Referring Dr.: Winnie Cotter DO Status: REG R Insurance: LEIGHA Weaver Date: DATE OF SERVICE: 09/21/2014 SUBJECTIVE: This patient was referred to physical therapy by Dr. Winnie Cotter with a diagnosis of cervical radiculopathy. 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 Her job involves repetitive lifting of 3-4 pounds her entire shift, but up to about 20 pounds maximum. She reports bilateral neck pain, left greater than right that radiates into the left shoulder blade region. Her pain is intermittent and ranges 0-8/10. She also has intermittent left thumb and index finger numbness. This pain started about 2 weeks ago and has been improving since receiving a Toradol shot last Sunday from Dr. Cotter. She had this problem about a year ago also and a Toradol shot helped then too. Currently, sitting, standing, turning her head to the left and lying down increase her pain, sometimes sitting, Icy Hot and Tylenol help. The pain is disturbing her sleep. She denies dizziness, ringing in the ears, nausea or difficulty swallowing. She denies difficulty using her arms. She does report that her arms do not feel like they are strong as they used to be though. She states she is otherwise in good health, but does have hypothyroidism. Recent x-ray of her neck showed normal aging per patient report. She denies any recent or major surgery , having been in any accidents or any unexplained weight loss. OBJECTIVE: This patient presents with poor sitting posture, fair standing posture, protruded head but no torticollis. Active correction of her sitting posture has no effect on her symptoms. Bilateral upper extremity range of motion and strength are within functional limits with a right film sound engineer strength of 50 pounds and left 45 pounds. Bilateral upper extremity light touch sensation is intact and symmetrical. Bilateral upper extremity reflexes are 2/2. Cervical movement loss: Protrusion -- nil, flexion -- nil, retraction -- moderate, extension -- minimal, bilateral side gliding -- minimal, bilateral rotation [...] sitting, head turning, standing, lying and sleep function. 4. Instruct in prophylaxis. PLAN: We plan to see this patient 2-3 times a week x4-6 weeks for soft tissue mobilization, ultrasound, electrical stimulation with cold pack or moist heat, manual traction, posture correction/strengthening and proper work ergonomic instruction to help meet the above goals. She was agreeable with this plan of care. Mery Cruz, PT T: NTS JOB: [id number] <Electronically signed by Mery Cruz > 09/25/14 1538 CC: Signed For Medicare only, by signing this I certify the plan of care. _ Physicians Signature Date Winnie Cotter Start: 09-14-2014 End: 09-14-2014 Cerv Spine 4 or 5 Views Comments: See Note; NOTES: [facility] Imaging Services [address] [place] [address] Radiology Report MR#: [id number] Acct: [id number] Name: KARLA BRIONES Rep #: [id number] : 1955 F 59 From: Michel Brandt MD PCP: Winnie Cotter DO Status: REG CLI Study: Cerv Spine 4 or 5 Views Date of Exam: 09/14/14 Exam# [id number] Ordering Dr: Winnie Cotter DO STUDY: X-RAY - CERVICAL SPINE REASON FOR EXAM: Female, 59 years old. NECK PAIN, NKI. PAIN IN LEFT SHOULDER, PAIN RADIATES INTO LEFT SIDE OF CERVICAL. NUMBNESS IN LEFT HAND/FINGERS X 2 WEEKS TECHNIQUE: 5 view(s) of the cervical spine were obtained. COMPARISON: None FINDINGS: Normal anterior atlantoaxial articulation. Normal odontoid process. Normal cervical lordosis. Normal vertebral bodies and endplates. Loss of intervertebral disc height at C5-6. Normal visualized intervertebral neuroforamina. The soft tissue structures are unremarkable. IMPRESSION: Mild degenerative changes at C5-6. Electronically Signed: Michel Brandt MD at 19:17 EDT , Service support [phone], RAD/Cerv Spine 4 or 5 Views IMPRESSION: Mild degenerative changes at C5-6. Electronically Signed: Michel Brandt MD at 19:17 EDT , Service support [phone], CC: Winnie Cotter DO Supervisor Stave Cutting: Signed Winnie Cotter Work Phone: Start: 06-30-2014 End: 06-30-2014 Total hysterectomy Petrona Messenger Comment on above: Dr. Harden Extraction of cataract Mingo a Slarb Comment on above: December 2018 Extraction of cataract Jasmi n Gravius Comment on above: December 2018 Extraction of cataract Mingo a Slarb 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 Comment on above: December 2018 Extraction of cataract Jasmi n Gravius CARD FILER Comment on above: December 2018 Extraction of cataract Jasmi n Gravius CARD FILER Comment on above: December 2018 H/O: hysterectomy S/P hysterectomy Tomeka Gravius CARD FILER H/O: hysterectomy S/P hysterectomy Prabha Slarb 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 H/O: hysterectomy S/P hysterectomy Tomeka Gravius CARD FILER H/O: hysterectomy S/P hysterectomy Tomeka Gravius CARD FILER H/O: hysterectomy S/P hysterectomy Angelica Cotter DO Work Phone: H/O: tubal ligation Tomeka G ravius CARD FILER H/O: tubal ligation Prabha S larb 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 H/O: tubal ligation Tomeka G ravius CARD FILER H/O: tubal ligation Tomeka G ravius CARD FILER Ligation of fallopia n tube Petrona Messenger Ligation of fallopia n tube Prabha Slarb Ligation of fallopia n tube Tomeka Gravius Ligation of fallopia n tube MIGUELITO David reast augmentation Petrona Messenger reast augmentation Prabha Slarb reast augmentation Tomeka Gravius reast augmentation MIGUELITO David reast augmentation Prabha Slarb 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 reast augmentation Tomeka Gravius CARD FILER reast augmentation Tomeka Gravius CARD FILER Repair of musculotendinous cuff of shoulder Tomeka Gravius CARD FILER Comment on above: August 23 2016 Repair of musculotendinous cuff of shoulder Prabha Slarb 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 Comment on above: August 23 2016 Repair of musculotendinous cuff of shoulder Tomeka Gravius CARD FILER Comment on above: August 23 2016 Repair of musculotendinous cuff of shoulder Tomeka Gravius CARD FILER Comment on above: August 23 2016 Rotator Cuff Repair - Left Petrona Messenger Comment on above: August 23 2016 Rotator Cuff Repair - Left Prabha Slarb Comment on above: August 23 2016 Rotator Cuff Repair - Left Tomeka Gravius Comment on above: August 23 2016 Rotator Cuff Repair - Left MIGUELITO Hernandez Comment on above: August 23 2016 Plan of Treatment Date Care Activity Detail Author Start: 11-21-2021 Procedure Education Eprescribed prescriptions (G8553) [facility]; [facility] Work Phone: Start: 11-21-2021 Provider Instructions for Treatment [facility]; [facility] Work Phone: Start: 11-21-2021 Urinalysis qual/semiquant except immunoassays URINALYSIS (43259) [facility]; [facility] Work Phone: Start: 11-21-2021 Urine albumin quantitative MICROALBUMIN: CREATININE RATIO (68684) AND (64440) [facility]; [facility] Work Phone: Start: 11-21-2021 Comprehensive metabolic panel METABOLIC PANEL, COMPREHENSIVE (82126) [facility]; [facility] Work Phone: Start: 11-21-2021 Lipid panel LIPID PANEL (91963) [facility]; [facility] Work Phone: Start: 11-21-2021 Blood count complete auto&auto difrntl wbc CBC W/AUTO DIFF WBC (61709) [facility]; [facility] Work Phone: Start: 11-21-2021 Assay of thyroid stimulating hormone tsh TSH (83094) [facility]; [facility] Work [...] 06-09-2021 Assay of osmolality urine OSMOLALITY URINE (78835) [facility]; [facility] Work Phone: Start: 06-09-2021 Assay of urine sodium SODIUM URINE (52761) [facility]; [facility] [...] Phone: Start: 04-22-2020 Lipid panel LIPID PANEL (44011) [facility] Work Phone: Start: 04-22-2020 TSH Qn TSH (19444) [facility] Work Phone: Start: 03-03-2019 Patient Education Common Cold *: upper respiratory infection [facility] Work Phone: Start: 03-03-2019 Procedure Education Eprescribed prescriptions (G8553) [facility] Work Phone: Start: 03-03-2019 Provider Instructions for Treatment Follow up if no improvement or if symptoms worsen [facility] Work Phone: Start: 03-03-2019 Iaadiadoo streptococcus group a Rapid Strep Test, Office (72543) [facility]; [facility] Work Phone: Comment on above: Negative Start: 03-03-2019 S. pyogenes Ag IA Ql (Unsp spec) Rapid Strep Test, Office (10799) [facility] Work Phone: Comment on above: Negative Start: 03-03-2019 Cul bact xcpt urine blood/stool aerobic isol Throat Culture (33905) [facility] Work Phone: Start: 09-18-2018 Assay of thyroid stimulating hormone tsh TSH (16395) [facility]; [facility] Work Phone: Start: 09-18-2018 TSH Qn TSH (48090) [facility] Work Phone: Start: 09-18-2018 Provider Instructions for Treatment Follow up in 4 weeks [facility] Work Phone: Start: 11-05-2017 Provider Instructions for Treatment Reviewed Diagnostic Tests [facility] Work Phone: Start: 10-22-2017 Provider Instructions for Treatment [facility] Work Phone: Start: 10-15-2017 Fibrin dgradj products d-dimer quantitative D-Dimer (26456) [facility] Work Phone: Start: 10-15-2017 Procedure Education Eprescribed prescriptions (G8553) [facility] Work Phone: Start: 04-30-2017 Provider Instructions for Treatment Follow up in 4 weeks [facility] Work Phone: Start: 10-31-2016 Patient Education Strep Throat: pharyngitis [facility] Work Phone: Start: 10-31-2016 Procedure Education Eprescribed prescriptions (G8553) [facility] Work Phone: Start: 10-31-2016 Provider Instructions for Treatment Follow up if no improvement or if symptoms worsen [facility] Work Phone: Start: 08-14-2016 Procedure Education Eprescribed prescriptions (G8553) [facility] Work Phone: Start: 08-14-2016 Provider Instructions for Treatment Follow up if no improvement or if symptoms worsen [facility] Work Phone: Start: 05-08-2016 Provider Instructions for Treatment Continue Current Prescription(s) [facility] Work Phone: Start: 03-30-2016 Provider Instructions for Treatment Follow up in 1 month [facility] Work Phone: Start: 02-17-2016 Provider Instructions for Treatment Follow up in 1 year or as needed [facility] Work Phone: Start: 07-13-2015 Patient Education Talking to Your Health Care Provider: physician [facility] Work Phone: Start: 07-13-2015 Procedure Education Eprescribed prescriptions (G8553) [facility] Work Phone: Start: 06-21-2015 Provider Instructions for Treatment [facility] Work Phone: Start: 05-31-2015 Procedure Education Eprescribed prescriptions (G8553) [facility] Work Phone: Start: 05-31-2015 Provider Instructions for Treatment Follow up in 3 weeks [facility] Work Phone: Start: 05-31-2015 25 hydroxy includes fractions if performed CALCIFEDIOL ([id number]) [facility] Work Phone: Start: 05-17-2015 Procedure Education Eprescribed prescriptions (G8553) [facility] Work Phone: Start: 03-30-2014 Provider Instructions for Treatment Follow up if no improvement or if symptoms worsen [facility] Work Phone: Start: 02-26-2014 Assay of thyroid stimulating hormone tsh TSH ([id number]) [facility]; [facility] Work Phone: Start: 02-26-2014 TSH Qn TSH ([id number]) [facility] Work Phone: Start: 11-25-2013 Procedure Education Eprescribed prescriptions (G8553) [facility] Work Phone: Start: 02-10-2013 Provider Instructions for Treatment Shave Biopsy with Epi [facility] Work Phone: Start: 02-26-2012 Assay of free thyroxine T4, FREE (THYROXINE) ([id number]) [facility]; [facility] Work Phone: Start: 02-26-2012 Free T4 [Mass/Vol] T4, FREE (THYROXINE) ([id number]) [facility] Work Phone: Start: 02-26-2012 Assay of thyroid stimulating hormone tsh TSH ([id number]) [facility]; [facility] Work Phone: Start: 02-26-2012 TSH Qn TSH ([id number]) [facility] Work Phone: Start: 02-13-2012 Provider Instructions for Treatment Follow up in 3 days [facility] Work Phone: Start: 02-13-2012 Calculus quantitative chemical CALCULUS CHEMICAL QUANTI ([id number]) [facility] Work Phone: Start: 04-24-2011 Assay of free thyroxine T4, FREE (THYROXINE) ([id number]) [facility]; [facility] Work Phone: Start: 04-24-2011 Free T4 [Mass/Vol] T4, FREE (THYROXINE) ([id number]) [facility] Work Phone: Start: 04-24-2011 Assay of thyroid stimulating hormone tsh TSH (81742) [facility]; [facility] Work Phone: Start: 04-24-2011 TSH Qn TSH (54445) [facility] Work Phone: Start: 03-10-2011 Assay of thyroxine total T4, TOTAL (07960) [facility] Work [facility]: Start: 03-10-2011 Microsomal antibodies each Anti-TPO Antibody (57807) [facility] Work Phone: Start: 03-10-2011 Assay of thyroid stimulating hormone tsh TSH (43841) [facility]; [facility] Work Phone: Start: 03-10-2011 TSH Qn TSH (36300) [facility] Work Phone: Start: 03-09-2011 Assay of thyroxine total T4, TOTAL (56010) [facility] Work Phone: Comment on above: add on lab Start: 03-09-2011 Assay of triiodothyronine t3 total tt3 T3, TOTAL (TRIDOTHYRONINE) ([id number]) [facility] Work Phone: Comment on above: add on lab Start: 02-22-2011 Assay of thyroid stimulating hormone tsh TSH (THYROID STIMULATING HORMONE) ([id number]) [facility]; [facility] Work Phone: Start: 02-22-2011 TSH Qn TSH (THYROID STIMULATING HORMONE) ([id number]) [facility] Work Phone: Start: 10-31-2010 Provider Instructions for Treatment follow up for recheck urine 1 week after complete antibiotic [facility] Work Phone: Start: 11-17-2008 Provider Instructions for Treatment UTI treatment [facility] Work Phone: Start: 10-08-2007 Iaadiadoo influenza Rapid Flu (45363 x 2) [facility] Work [facility]: [facility] Work [facility]: [facility] Work [facility]: [facility] Work [facility]: [facility] Work [facility]: [facility]: [facility] Work [facility]: [facility]: [facility]: [facility]: [facility] Work [facility]: [facility] Work [facility]: [facility] Work [facility]: [facility] Work [facility] Work [facility]: [facility] Work [facility]: [facility]; [facility] Work Phone: [facility]; [facility] Work Phone: Payers Date Payer Category Payer Unknown [id number] 2015 Unknown [id number] 2014 Unknown [id number] 2006 Unknown [id number] 1956 Unknown [id number] Private Health Insurance [id number] Unknown Social History Date Type Detail Facility Alcohol Use Alcohol Use [facility] Work Phone: Comment on above: Occasional alcohol u se Inactive , heterosexua l, Lives with spouse [employer] Tobacco Use: Tobacco Use: [facility] Work [facility]: Tobacco use: Tobacco use: [facility] Work Phone: Comment on above: updated 04-24-11 Tobacco Use: Tobacco Use: [facility]; [facility] Work Phone: Tobacco use: Tobacco use: [facility]; [facility] Work Phone: Comment on above: updated 04-24-11 Instructions Note Date & Type Note Facility Instructions Name How to access health information online Indication:Nonsmoker Start:22-Apr-2020 Instruction Type:Patient Education How to access health information online - Detail Indication:Nonsmoker Start:22-Apr-2020 Instruction Type:Patient Education Patient Instructions Indication:Nonsmoker Start:22-Apr-2020 Instruction Type:Provider Instructions for Treatment How to access health information online Indication:Nonsmoker Start: 9 Instruction Type:Patient Education How to access health information online - Detail Indication:Nonsmoker Start: 9 Instruction Type:Patient Education Patient Instructions Indication:Upper respiratory infection, viral Start: Instruction Type:Provider Instructions for Treatment How to access health information online Indication:Tobacco abuse, in remission (Renamed from Tobacco dependence in remission) Start:21-Oct-2018 Instruction Type:Patient Education How to access health information online - Detail Indication:Tobacco abuse, in remission (Renamed from Tobacco dependence in remission) Start:21-Oct-2018 Instruction Type:Patient Education Patient Instructions Indication:Tobacco abuse, in remission (Renamed from Tobacco dependence in remission) Start:21-Oct-2018 Instruction Type:Provider Instructions for Treatment How to access health information online Indication:Anxiety Start:18-Sep-2018 Instruction Type:Patient Education How to access health information online - Detail Indication:Anxiety Start:18-Sep-2018 Instruction Type:Patient Education Patient Instructions Indication:Anxiety Start:18-Sep-2018 Instruction Type:Provider Instructions for Treatment How to access health information online Indication:Nonsmoker Start: 8 Instruction Type:Patient Education How to access health information online - Detail Indication:Nonsmoker Start: 8 Instruction Type:Patient Education Patient Instructions Indication:Nonsmoker Start: 8 Instruction Type:Provider Instructions for Treatment How to access health information online Indication:Tobacco abuse, in remission (Renamed from Tobacco dependence in remission) Start:22-Oct-2017 Instruction Type:Patient Education How to access health information online - Detail Indication:Tobacco abuse, in remission (Renamed from Tobacco dependence in remission) Start:22-Oct-2017 Instruction Type:Patient Education Patient Instructions Indication:Tobacco abuse, in remission (Renamed from Tobacco dependence in remission) Start:22-Oct-2017 Instruction Type:Provider Instructions for Treatment How to access health information online Indication:Nonsmoker Start: 8 Instruction Type:Patient Education How to access health information online - Detail Indication:Nonsmoker Start: 8 Instruction Type:Patient Education Patient Instructions Indication:Nonsmoker Start: 8 Instruction Type:Provider Instructions for Treatment How to access health information online Indication:BMI between 19-24,adult Start: 7 Instruction Type:Patient Education How to access health information online - Detail Indication:BMI between 19-24,adult Start: 7 Instruction Type:Patient Education Patient Instructions Indication:BMI between 19-24,adult Start: 7 Instruction Type:Provider Instructions for Treatment How to access health information online Indication:Sore throat Start: 7 Instruction Type:Patient Education How to access health information online - Detail Indication:Sore throat Start: 7 Instruction Type:Patient Education Patient Instructions Indication:Sore throat Start: 7 Instruction Type:Provider Instructions for Treatment How to access health information online Indication:Earache Start: 7 Instruction Type:Patient Education How to access health information online - Detail Indication:Earache Start: 7 Instruction Type:Patient Education Patient Instructions Indication:Earache Start: 7 Instruction Type:Provider Instructions for Treatment How to access health information online Indication:Shoulder impingement, left Start: 6 Instruction Type:Patient Education How to access health information online - Detail Indication:Shoulder impingement, left Start: 6 Instruction Type:Patient Education Patient Instructions Indication:Shoulder impingement, left Start: 6 Instruction Type:Provider Instructions for Treatment How to access health information online Indication:S/P hysterectomy Start: 6 Instruction Type:Patient Education How to access health information online - Detail Indication:S/P hysterectomy Start: 6 Instruction Type:Patient Education Patient Instructions Indication:S/P hysterectomy Start: 6 Instruction Type:Provider Instructions for Treatment How to access health information online Indication:Myalgia Start: 5 Instruction Type:Patient Education How to access health information online - Detail Indication:Myalgia Start: 5 Instruction Type:Patient Education Patient Instructions Indication:Myalgia Start: 5 Instruction Type:Provider Instructions for Treatment How to access health information online Indication:Hypothyroidism Start: 5 Instruction Type:Patient Education How to access health information online - Detail Indication:Hypothyroidism Start: 5 Instruction Type:Patient Education Patient Instructions Indication:Hypothyroidism Start: 5 Instruction Type:Provider Instructions for Treatment Patient Instructions Indication:Hypothyroidism Start: 4 Instruction Type:Provider Instructions for Treatment Patient Instructions Indication:Calcium kidney stone Start: 2 Instruction Type:Provider Instructions for Treatment [facility]; [facility] Work Phone: Instructions Note Date & Type Note Facility Instructions Name How to access health information online Indication:Nonsmoker Start:22-Apr-2020 Instruction Type:Patient Education How to access health information online - Detail Indication:Nonsmoker Start:22-Apr-2020 Instruction Type:Patient Education Patient Instructions Indication:Nonsmoker Start:22-Apr-2020 Instruction Type:Provider Instructions for Treatment How to access health information online Indication:Nonsmoker Start: 9 Instruction Type:Patient Education How to access health information online - Detail Indication:Nonsmoker Start: 9 Instruction Type:Patient Education Patient Instructions Indication:Upper respiratory infection, viral Start: 9 Instruction Type:Provider Instructions for Treatment How to access health information online Indication:Tobacco abuse, in remission (Renamed from Tobacco dependence in remission) Start:21-Oct-2018 Instruction Type:Patient Education How to access health information online - Detail Indication:Tobacco abuse, in remission (Renamed from Tobacco dependence in remission) Start:21-Oct-2018 Instruction Type:Patient Education Patient Instructions Indication:Tobacco abuse, in remission (Renamed from Tobacco dependence in remission) Start:21-Oct-2018 Instruction Type:Provider Instructions for Treatment How to access health information online Indication:Anxiety Start:18-Sep-2018 Instruction Type:Patient Education How to access health information online - Detail Indication:Anxiety Start:18-Sep-2018 Instruction Type:Patient Education Patient Instructions Indication:Anxiety Start:18-Sep-2018 Instruction Type:Provider Instructions for Treatment How to access health information online Indication:Nonsmoker Start: 8 Instruction Type:Patient Education How to access health information online - Detail Indication:Nonsmoker Start: 8 Instruction Type:Patient Education Patient Instructions Indication:Nonsmoker Start: 8 Instruction Type:Provider Instructions for Treatment How to access health information online Indication:Tobacco abuse, in remission (Renamed from Tobacco dependence in remission) Start:22-Oct-2017 Instruction Type:Patient Education How to access health information online - Detail Indication:Tobacco abuse, in remission (Renamed from Tobacco dependence in remission) Start:22-Oct-2017 Instruction Type:Patient Education Patient Instructions Indication:Tobacco abuse, in remission (Renamed from Tobacco dependence in remission) Start:22-Oct-2017 Instruction Type:Provider Instructions for Treatment How to access health information online Indication:Nonsmoker Start: 8 Instruction Type:Patient Education How to access health information online - Detail Indication:Nonsmoker Start: 8 Instruction Type:Patient Education Patient Instructions Indication:Nonsmoker Start: 8 Instruction Type:Provider Instructions for Treatment How to access health information online Indication:BMI between 19-24,adult Start: 7 Instruction Type:Patient Education How to access health information online - Detail Indication:BMI between 19-24,adult Start: 7 Instruction Type:Patient Education Patient Instructions Indication:BMI between 19-24,adult Start: 7 Instruction Type:Provider Instructions for Treatment How to access health information online Indication:Sore throat Start: 7 Instruction Type:Patient Education How to access health information online - Detail Indication:Sore throat Start: 7 Instruction Type:Patient Education Patient Instructions Indication:Sore throat Start: 7 Instruction Type:Provider Instructions for Treatment How to access health information online Indication:Earache Start: 7 Instruction Type:Patient Education How to access health information online - Detail Indication:Earache Start: 7 Instruction Type:Patient Education Patient Instructions Indication:Earache Start: 7 Instruction Type:Provider Instructions for Treatment How to access health information online Indication:Shoulder impingement, left Start: 6 Instruction Type:Patient Education How to access health information online - Detail Indication:Shoulder impingement, left Start: 6 Instruction Type:Patient Education Patient Instructions Indication:Shoulder impingement, left Start: 6 Instruction Type:Provider Instructions for Treatment How to access health information online Indication:S/P hysterectomy Start: 6 Instruction Type:Patient Education How to access health information online - Detail Indication:S/P hysterectomy Start: 6 Instruction Type:Patient Education Patient Instructions Indication:S/P hysterectomy Start: 6 Instruction Type:Provider Instructions for Treatment How to access health information online Indication:Myalgia Start: 5 Instruction Type:Patient Education How to access health information online - Detail Indication:Myalgia Start: 5 Instruction Type:Patient Education Patient Instructions Indication:Myalgia Start: 5 Instruction Type:Provider Instructions for Treatment How to access health information online Indication:Hypothyroidism Start: 5 Instruction Type:Patient Education How to access health information online - Detail Indication:Hypothyroidism Start: 5 Instruction Type:Patient Education Patient Instructions Indication:Hypothyroidism Start: 5 Instruction Type:Provider Instructions for Treatment Patient Instructions Indication:Hypothyroidism Start: 4 Instruction Type:Provider Instructions for Treatment Patient Instructions Indication:Calcium kidney stone Start: 2 Instruction Type:Provider Instructions for Treatment [facility]; [facility] Work Phone: Instructions Note Date & Type Note Facility Instructions Name Patient Instructions Indication:Tobacco abuse, in remission (Renamed from Tobacco dependence in remission) Start:20-Jun-2021 Instruction Type:Provider Instructions for Treatment How to Access Health Information Online using Patient Portal and [employer]rd [employer] Apps Indication:Tobacco abuse, in remission (Renamed from Tobacco dependence in remission) Start:20-Jun-2021 Instruction Type:Patient Education Patient Instructions Indication:Nonsmoker Start: Instruction Type:Provider Instructions for Treatment How to Access Health Information Online using Patient Portal and [employer]rd [employer] Apps Indication:Nonsmoker Start: Instruction Type:Patient Education Patient Instructions Indication:Nonsmoker Start:19-May-2021 Instruction Type:Provider Instructions for Treatment How to Access Health Information Online using Patient Portal and [employer]rd [employer] Apps Indication:Nonsmoker Start:19-May-2021 Instruction Type:Patient Education How to access health information online Indication:Nonsmoker Start:22-Apr-2020 Instruction Type:Patient Education How to access health information online - Detail Indication:Nonsmoker Start:22-Apr-2020 Instruction Type:Patient Education Patient Instructions Indication:Nonsmoker Start:22-Apr-2020 Instruction Type:Provider Instructions for Treatment How to access health information online Indication:Nonsmoker Start: Instruction Type:Patient Education How to access health information online - Detail Indication:Nonsmoker Start: Instruction Type:Patient Education Patient Instructions Indication:Upper respiratory infection, viral Start: Instruction Type:Provider Instructions for Treatment How to access health information online Indication:Tobacco abuse, in remission (Renamed from Tobacco dependence in remission) Start:21-Oct-2018 Instruction Type:Patient Education How to access health information online - Detail Indication:Tobacco abuse, in remission (Renamed from Tobacco dependence in remission) Start:21-Oct-2018 Instruction Type:Patient Education Patient Instructions Indication:Tobacco abuse, in remission (Renamed from Tobacco dependence in remission) Start:21-Oct-2018 Instruction Type:Provider Instructions for Treatment How to access health information online Indication:Anxiety Start:18-Sep-2018 Instruction Type:Patient Education How to access health information online - Detail Indication:Anxiety Start:18-Sep-2018 Instruction Type:Patient Education Patient Instructions Indication:Anxiety Start:18-Sep-2018 Instruction Type:Provider Instructions for Treatment How to access health information online Indication:Nonsmoker Start: 8 Instruction Type:Patient Education How to access health information online - Detail Indication:Nonsmoker Start: 8 Instruction Type:Patient Education Patient Instructions Indication:Nonsmoker Start: 8 Instruction Type:Provider Instructions for Treatment How to access health information online Indication:Tobacco abuse, in remission (Renamed from Tobacco dependence in remission) Start:22-Oct-2017 Instruction Type:Patient Education How to access health information online - Detail Indication:Tobacco abuse, in remission (Renamed from Tobacco dependence in remission) Start:22-Oct-2017 Instruction Type:Patient Education Patient Instructions Indication:Tobacco abuse, in remission (Renamed from Tobacco dependence in remission) Start:22-Oct-2017 Instruction Type:Provider Instructions for Treatment How to access health information online Indication:Nonsmoker Start: 8 Instruction Type:Patient Education How to access health information online - Detail Indication:Nonsmoker Start: 8 Instruction Type:Patient Education Patient Instructions Indication:Nonsmoker Start: 8 Instruction Type:Provider Instructions for Treatment How to access health information online Indication:BMI between 19-24,adult Start: 7 Instruction Type:Patient Education How to access health information online - Detail Indication:BMI between 19-24,adult Start: 7 Instruction Type:Patient Education Patient Instructions Indication:BMI between 19-24,adult Start: 7 Instruction Type:Provider Instructions for Treatment How to access health information online Indication:Sore throat Start: 7 Instruction Type:Patient Education How to access health information online - Detail Indication:Sore throat Start: 7 Instruction Type:Patient Education Patient Instructions Indication:Sore throat Start: 7 Instruction Type:Provider Instructions for Treatment How to access health information online Indication:Earache Start: 7 Instruction Type:Patient Education How to access health information online - Detail Indication:Earache Start: 7 Instruction Type:Patient Education Patient Instructions Indication:Earache Start: 7 Instruction Type:Provider Instructions for Treatment How to access health information online Indication:Shoulder impingement, left Start: 6 Instruction Type:Patient Education How to access health information online - Detail Indication:Shoulder impingement, left Start: 6 Instruction Type:Patient Education Patient Instructions Indication:Shoulder impingement, left Start: 6 Instruction Type:Provider Instructions for Treatment How to access health information online Indication:S/P hysterectomy Start: 6 Instruction Type:Patient Education How to access health information online - Detail Indication:S/P hysterectomy Start: 6 Instruction Type:Patient Education Patient Instructions Indication:S/P hysterectomy Start: 6 Instruction Type:Provider Instructions for Treatment How to access health information online Indication:Myalgia Start: 5 Instruction Type:Patient Education How to access health information online - Detail Indication:Myalgia Start: 5 Instruction Type:Patient Education Patient Instructions Indication:Myalgia Start: 5 Instruction Type:Provider Instructions for Treatment How to access health information online Indication:Hypothyroidism Start: 5 Instruction Type:Patient Education How to access health information online - Detail Indication:Hypothyroidism Start: 5 Instruction Type:Patient Education Patient Instructions Indication:Hypothyroidism Start: 5 Instruction Type:Provider Instructions for Treatment Patient Instructions Indication:Hypothyroidism Start: 4 Instruction Type:Provider Instructions for Treatment Patient Instructions Indication:Calcium kidney stone Start: 2 Instruction Type:Provider Instructions for Treatment [facility]; [facility] Work Phone: Instructions Note Date & Type Note Facility Instructions Name Patient Instructions Indication:Tobacco abuse, in remission (Renamed from Tobacco dependence in remission) Start:20-Jun-2021 Instruction Type:Provider Instructions for Treatment How to Access Health Information Online using Patient Portal and [employer] Apps Indication:Tobacco abuse, in remission (Renamed from Tobacco dependence in remission) Start:20-Jun-2021 Instruction Type:Patient Education Patient Instructions Indication:Nonsmoker Start: Instruction Type:Provider Instructions for Treatment How to Access Health Information Online using Patient Portal and [employer] Indication:Nonsmoker Start: Instruction Type:Patient Education Patient Instructions Indication:Nonsmoker Start:19-May-2021 Instruction Type:Provider Instructions for Treatment How to Access Health Information Online using Patient Portal and [employer] Indication:Nonsmoker Start:19-May-2021 Instruction Type:Patient Education How to access health information online Indication:Nonsmoker Start:22-Apr-2020 Instruction Type:Patient Education How to access health information online - Detail Indication:Nonsmoker Start:22-Apr-2020 Instruction Type:Patient Education Patient Instructions Indication:Nonsmoker Start:22-Apr-2020 Instruction Type:Provider Instructions for Treatment How to access health information online Indication:Nonsmoker Start: 9 Instruction Type:Patient Education How to access health information online - Detail Indication:Nonsmoker Start: Instruction Type:Patient Education Patient Instructions Indication:Upper respiratory infection, viral Start: Instruction Type:Provider Instructions for Treatment How to access health information online Indication:Tobacco abuse, in remission (Renamed from Tobacco dependence in remission) Start:21-Oct-2018 Instruction Type:Patient Education How to access health information online - Detail Indication:Tobacco abuse, in remission (Renamed from Tobacco dependence in remission) Start:21-Oct-2018 Instruction Type:Patient Education Patient Instructions Indication:Tobacco abuse, in remission (Renamed from Tobacco dependence in remission) Start:21-Oct-2018 Instruction Type:Provider Instructions for Treatment How to access health information online Indication:Anxiety Start:18-Sep-2018 Instruction Type:Patient Education How to access health information online - Detail Indication:Anxiety Start:18-Sep-2018 Instruction Type:Patient Education Patient Instructions Indication:Anxiety Start:18-Sep-2018 Instruction Type:Provider Instructions for Treatment How to access health information online Indication:Nonsmoker Start: 8 Instruction Type:Patient Education How to access health information online - Detail Indication:Nonsmoker Start: 8 Instruction Type:Patient Education Patient Instructions Indication:Nonsmoker Start: 8 Instruction Type:Provider Instructions for Treatment How to access health information online Indication:Tobacco abuse, in remission (Renamed from Tobacco dependence in remission) Start:22-Oct-2017 Instruction Type:Patient Education How to access health information online - Detail Indication:Tobacco abuse, in remission (Renamed from Tobacco dependence in remission) Start:22-Oct-2017 Instruction Type:Patient Education Patient Instructions Indication:Tobacco abuse, in remission (Renamed from Tobacco dependence in remission) Start:22-Oct-2017 Instruction Type:Provider Instructions for Treatment How to access health information online Indication:Nonsmoker Start: 8 Instruction Type:Patient Education How to access health information online - Detail Indication:Nonsmoker Start: 8 Instruction Type:Patient Education Patient Instructions Indication:Nonsmoker Start: 8 Instruction Type:Provider Instructions for Treatment How to access health information online Indication:BMI between 19-24,adult Start: 7 Instruction Type:Patient Education How to access health information online - Detail Indication:BMI between 19-24,adult Start: 7 Instruction Type:Patient Education Patient Instructions Indication:BMI between 19-24,adult Start: 7 Instruction Type:Provider Instructions for Treatment How to access health information online Indication:Sore throat Start: 7 Instruction Type:Patient Education How to access health information online - Detail Indication:Sore throat Start: 7 Instruction Type:Patient Education Patient Instructions Indication:Sore throat Start: 7 Instruction Type:Provider Instructions for Treatment How to access health information online Indication:Earache Start: 7 Instruction Type:Patient Education How to access health information online - Detail Indication:Earache Start: 7 Instruction Type:Patient Education Patient Instructions Indication:Earache Start: 7 Instruction Type:Provider Instructions for Treatment How to access health information online Indication:Shoulder impingement, left Start: 6 Instruction Type:Patient Education How to access health information online - Detail Indication:Shoulder impingement, left Start: 6 Instruction Type:Patient Education Patient Instructions Indication:Shoulder impingement, left Start: 6 Instruction Type:Provider Instructions for Treatment How to access health information online Indication:S/P hysterectomy Start: 6 Instruction Type:Patient Education How to access health information online - Detail Indication:S/P hysterectomy Start: 6 Instruction Type:Patient Education Patient Instructions Indication:S/P hysterectomy Start: 6 Instruction Type:Provider Instructions for Treatment How to access health information online Indication:Myalgia Start: 5 Instruction Type:Patient Education How to access health information online - Detail Indication:Myalgia Start: 5 Instruction Type:Patient Education Patient Instructions Indication:Myalgia Start: 5 Instruction Type:Provider Instructions for Treatment How to access health information online Indication:Hypothyroidism Start: 5 Instruction Type:Patient Education How to access health information online - Detail Indication:Hypothyroidism Start: 5 Instruction Type:Patient Education Patient Instructions Indication:Hypothyroidism Start: 5 Instruction Type:Provider Instructions for Treatment Patient Instructions Indication:Hypothyroidism Start: 4 Instruction Type:Provider Instructions for Treatment Patient Instructions Indication:Calcium kidney stone Start: 2 Instruction Type:Provider Instructions for Treatment [facility]; [facility] Work Phone: Instructions Note Date & Type Note Facility Instructions Name Patient Instructions Indication:Nonsmoker Start:17-Aug-2021 Instruction Type:Provider Instructions for Treatment How to Access Health Information Online using Patient Portal and [employer] Indication:Nonsmoker Start:17-Aug-2021 Instruction Type:Patient Education Patient Instructions Indication:Tobacco abuse, in remission (Renamed from Tobacco dependence in remission) Start:20-Jun-2021 Instruction Type:Provider Instructions for Treatment How to Access Health Information Online using Patient Portal and [employer] Indication:Tobacco abuse, in remission (Renamed from Tobacco dependence in remission) Start:20-Jun-2021 Instruction Type:Patient Education Patient Instructions Indication:Nonsmoker Start: Instruction Type:Provider Instructions for Treatment How to Access Health Information Online using Patient Portal and [employer] Indication:Nonsmoker Start: Instruction Type:Patient Education Patient Instructions Indication:Nonsmoker Start:19-May-2021 Instruction Type:Provider Instructions for Treatment How to Access Health Information Online using Patient Portal and [employer] Indication:Nonsmoker Start:19-May-2021 Instruction Type:Patient Education How to access health information online Indication:Nonsmoker Start:22-Apr-2020 Instruction Type:Patient Education How to access health information online - Detail Indication:Nonsmoker Start:22-Apr-2020 Instruction Type:Patient Education Patient Instructions Indication:Nonsmoker Start:22-Apr-2020 Instruction Type:Provider Instructions for Treatment How to access health information online Indication:Nonsmoker Start: 9 Instruction Type:Patient Education How to access health information online - Detail Indication:Nonsmoker Start: 9 Instruction Type:Patient Education Patient Instructions Indication:Upper respiratory infection, viral Start: 9 Instruction Type:Provider Instructions for Treatment How to access health information online Indication:Tobacco abuse, in remission (Renamed from Tobacco dependence in remission) Start:21-Oct-2018 Instruction Type:Patient Education How to access health information online - Detail Indication:Tobacco abuse, in remission (Renamed from Tobacco dependence in remission) Start:21-Oct-2018 Instruction Type:Patient Education Patient Instructions Indication:Tobacco abuse, in remission (Renamed from Tobacco dependence in remission) Start:21-Oct-2018 Instruction Type:Provider Instructions for Treatment How to access health information online Indication:Anxiety Start:18-Sep-2018 Instruction Type:Patient Education How to access health information online - Detail Indication:Anxiety Start:18-Sep-2018 Instruction Type:Patient Education Patient Instructions Indication:Anxiety Start:18-Sep-2018 Instruction Type:Provider Instructions for Treatment How to access health information online Indication:Nonsmoker Start: 8 Instruction Type:Patient Education How to access health information online - Detail Indication:Nonsmoker Start: 8 Instruction Type:Patient Education Patient Instructions Indication:Nonsmoker Start: 8 Instruction Type:Provider Instructions for Treatment How to access health information online Indication:Tobacco abuse, in remission (Renamed from Tobacco dependence in remission) Start:22-Oct-2017 Instruction Type:Patient Education How to access health information online - Detail Indication:Tobacco abuse, in remission (Renamed from Tobacco dependence in remission) Start:22-Oct-2017 Instruction Type:Patient Education Patient Instructions Indication:Tobacco abuse, in remission (Renamed from Tobacco dependence in remission) Start:22-Oct-2017 Instruction Type:Provider Instructions for Treatment How to access health information online Indication:Nonsmoker Start: 8 Instruction Type:Patient Education How to access health information online - Detail Indication:Nonsmoker Start: 8 Instruction Type:Patient Education Patient Instructions Indication:Nonsmoker Start: 8 Instruction Type:Provider Instructions for Treatment How to access health information online Indication:BMI between 19-24,adult Start: 7 Instruction Type:Patient Education How to access health information online - Detail Indication:BMI between 19-24,adult Start: 7 Instruction Type:Patient Education Patient Instructions Indication:BMI between 19-24,adult Start: 7 Instruction Type:Provider Instructions for Treatment How to access health information online Indication:Sore throat Start: 7 Instruction Type:Patient Education How to access health information online - Detail Indication:Sore throat Start: 7 Instruction Type:Patient Education Patient Instructions Indication:Sore throat Start: 7 Instruction Type:Provider Instructions for Treatment How to access health information online Indication:Earache Start: 7 Instruction Type:Patient Education How to access health information online - Detail Indication:Earache Start: 7 Instruction Type:Patient Education Patient Instructions Indication:Earache Start: 7 Instruction Type:Provider Instructions for Treatment How to access health information online Indication:Shoulder impingement, left Start: 6 Instruction Type:Patient Education How to access health information online - Detail Indication:Shoulder impingement, left Start: 6 Instruction Type:Patient Education Patient Instructions Indication:Shoulder impingement, left Start: 6 Instruction Type:Provider Instructions for Treatment How to access health information online Indication:S/P hysterectomy Start: 6 Instruction Type:Patient Education How to access health information online - Detail Indication:S/P hysterectomy Start: 6 Instruction Type:Patient Education Patient Instructions Indication:S/P hysterectomy Start: 6 Instruction Type:Provider Instructions for Treatment How to access health information online Indication:Myalgia Start: 5 Instruction Type:Patient Education How to access health information online - Detail Indication:Myalgia Start: 5 Instruction Type:Patient Education Patient Instructions Indication:Myalgia Start: 5 Instruction Type:Provider Instructions for Treatment How to access health information online Indication:Hypothyroidism Start: 5 Instruction Type:Patient Education How to access health information online - Detail Indication:Hypothyroidism Start: 5 Instruction Type:Patient Education Patient Instructions Indication:Hypothyroidism Start: 5 Instruction Type:Provider Instructions for Treatment Patient Instructions Indication:Hypothyroidism Start: 4 Instruction Type:Provider Instructions for Treatment Patient Instructions Indication:Calcium kidney stone Start: 2 Instruction Type:Provider Instructions for Treatment [facility]; [facility] Work Phone: Instructions Note Date & Type Note Facility Instructions Name Patient Instructions Indication:Nonsmoker Start:17-Aug-2021 Instruction Type:Provider Instructions for Treatment How to Access Health Information Online using Patient Portal and [employer] Indication:Nonsmoker Start:17-Aug-2021 Instruction Type:Patient Education Patient Instructions Indication:Tobacco abuse, in remission (Renamed from Tobacco dependence in remission) Start:20-Jun-2021 Instruction Type:Provider Instructions for Treatment How to Access Health Information Online using Patient Portal and [employer] Indication:Tobacco abuse, in remission (Renamed from Tobacco dependence in remission) Start:20-Jun-2021 Instruction Type:Patient Education Patient Instructions Indication:Nonsmoker Start: Instruction Type:Provider Instructions for Treatment How to Access Health Information Online using Patient Portal and [employer] Indication:Nonsmoker Start: Instruction Type:Patient Education Patient Instructions Indication:Nonsmoker Start:19-May-2021 Instruction Type:Provider Instructions for Treatment How to Access Health Information Online using Patient Portal and [employer] Indication:Nonsmoker Start:19-May-2021 Instruction Type:Patient Education How to access health information online Indication:Nonsmoker Start:22-Apr-2020 Instruction Type:Patient Education How to access health information online - Detail Indication:Nonsmoker Start:22-Apr-2020 Instruction Type:Patient Education Patient Instructions Indication:Nonsmoker Start:22-Apr-2020 Instruction Type:Provider Instructions for Treatment How to access health information online Indication:Nonsmoker Start: Instruction Type:Patient Education How to access health information online - Detail Indication:Nonsmoker Start: 9 Instruction Type:Patient Education Patient Instructions Indication:Upper respiratory infection, viral Start: 9 Instruction Type:Provider Instructions for Treatment How to access health information online Indication:Tobacco abuse, in remission (Renamed from Tobacco dependence in remission) Start:21-Oct-2018 Instruction Type:Patient Education How to access health information online - Detail Indication:Tobacco abuse, in remission (Renamed from Tobacco dependence in remission) Start:21-Oct-2018 Instruction Type:Patient Education Patient Instructions Indication:Tobacco abuse, in remission (Renamed from Tobacco dependence in remission) Start:21-Oct-2018 Instruction Type:Provider Instructions for Treatment How to access health information online Indication:Anxiety Start:18-Sep-2018 Instruction Type:Patient Education How to access health information online - Detail Indication:Anxiety Start:18-Sep-2018 Instruction Type:Patient Education Patient Instructions Indication:Anxiety Start:18-Sep-2018 Instruction Type:Provider Instructions for Treatment How to access health information online Indication:Nonsmoker Start: 8 Instruction Type:Patient Education How to access health information online - Detail Indication:Nonsmoker Start: 8 Instruction Type:Patient Education Patient Instructions Indication:Nonsmoker Start: 8 Instruction Type:Provider Instructions for Treatment How to access health information online Indication:Tobacco abuse, in remission (Renamed from Tobacco dependence in remission) Start:22-Oct-2017 Instruction Type:Patient Education How to access health information online - Detail Indication:Tobacco abuse, in remission (Renamed from Tobacco dependence in remission) Start:22-Oct-2017 Instruction Type:Patient Education Patient Instructions Indication:Tobacco abuse, in remission (Renamed from Tobacco dependence in remission) Start:22-Oct-2017 Instruction Type:Provider Instructions for Treatment How to access health information online Indication:Nonsmoker Start: 8 Instruction Type:Patient Education How to access health information online - Detail Indication:Nonsmoker Start: 8 Instruction Type:Patient Education Patient Instructions Indication:Nonsmoker Start: 8 Instruction Type:Provider Instructions for Treatment How to access health information online Indication:BMI between 19-24,adult Start: 7 Instruction Type:Patient Education How to access health information online - Detail Indication:BMI between 19-24,adult Start: 7 Instruction Type:Patient Education Patient Instructions Indication:BMI between 19-24,adult Start: 7 Instruction Type:Provider Instructions for Treatment How to access health information online Indication:Sore throat Start: 7 Instruction Type:Patient Education How to access health information online - Detail Indication:Sore throat Start: 7 Instruction Type:Patient Education Patient Instructions Indication:Sore throat Start: 7 Instruction Type:Provider Instructions for Treatment How to access health information online Indication:Earache Start: 7 Instruction Type:Patient Education How to access health information online - Detail Indication:Earache Start: 7 Instruction Type:Patient Education Patient Instructions Indication:Earache Start: 7 Instruction Type:Provider Instructions for Treatment How to access health information online Indication:Shoulder impingement, left Start: 6 Instruction Type:Patient Education How to access health information online - Detail Indication:Shoulder impingement, left Start: 6 Instruction Type:Patient Education Patient Instructions Indication:Shoulder impingement, left Start: 6 Instruction Type:Provider Instructions for Treatment How to access health information online Indication:S/P hysterectomy Start: 6 Instruction Type:Patient Education How to access health information online - Detail Indication:S/P hysterectomy Start: 6 Instruction Type:Patient Education Patient Instructions Indication:S/P hysterectomy Start: 6 Instruction Type:Provider Instructions for Treatment How to access health information online Indication:Myalgia Start: 5 Instruction Type:Patient Education How to access health information online - Detail Indication:Myalgia Start: 5 Instruction Type:Patient Education Patient Instructions Indication:Myalgia Start: 5 Instruction Type:Provider Instructions for Treatment How to access health information online Indication:Hypothyroidism Start: 5 Instruction Type:Patient Education How to access health information online - Detail Indication:Hypothyroidism Start: 5 Instruction Type:Patient Education Patient Instructions Indication:Hypothyroidism Start: 5 Instruction Type:Provider Instructions for Treatment Patient Instructions Indication:Hypothyroidism Start: 4 Instruction Type:Provider Instructions for Treatment Patient Instructions Indication:Calcium kidney stone Start: 2 Instruction Type:Provider Instructions for Treatment [facility]; [facility] Work Phone: Instructions Note Date & Type Note Facility Instructions Name Patient Instructions Indication:BMI 24.0-24.9, adult Start:21-Nov-2021 Instruction Type:Provider Instructions for Treatment How to Access Health Information Online using Patient Portal and [employer] Indication:BMI 24.0-24.9, adult Start:21-Nov-2021 Instruction Type:Patient Education Patient Instructions Indication:Nonsmoker Start:17-Aug-2021 Instruction Type:Provider Instructions for Treatment How to Access Health Information Online using Patient Portal and [employer] Indication:Nonsmoker Start:17-Aug-2021 Instruction Type:Patient Education Patient Instructions Indication:Tobacco abuse, in remission (Renamed from Tobacco dependence in remission) Start:20-Jun-2021 Instruction Type:Provider Instructions for Treatment How to Access Health Information Online using Patient Portal and [employer] Indication:Tobacco abuse, in remission (Renamed from Tobacco dependence in remission) Start:20-Jun-2021 Instruction Type:Patient Education Patient Instructions Indication:Nonsmoker Start: Instruction Type:Provider Instructions for Treatment How to Access Health Information Online using Patient Portal and [employer] Indication:Nonsmoker Start: Instruction Type:Patient Education Patient Instructions Indication:Nonsmoker Start:19-May-2021 Instruction Type:Provider Instructions for Treatment How to Access Health Information Online using Patient Portal and [employer] Indication:Nonsmoker Start:19-May-2021 Instruction Type:Patient Education How to access health information online Indication:Nonsmoker Start:22-Apr-2020 Instruction Type:Patient Education How to access health information online - Detail Indication:Nonsmoker Start:22-Apr-2020 Instruction Type:Patient Education Patient Instructions Indication:Nonsmoker Start:22-Apr-2020 Instruction Type:Provider Instructions for Treatment How to access health information online Indication:Nonsmoker Start: 9 Instruction Type:Patient Education How to access health information online - Detail Indication:Nonsmoker Start: Instruction Type:Patient Education Patient Instructions Indication:Upper respiratory infection, viral Start: 9 Instruction Type:Provider Instructions for Treatment How to access health information online Indication:Tobacco abuse, in remission (Renamed from Tobacco dependence in remission) Start:21-Oct-2018 Instruction Type:Patient Education How to access health information online - Detail Indication:Tobacco abuse, in remission (Renamed from Tobacco dependence in remission) Start:21-Oct-2018 Instruction Type:Patient Education Patient Instructions Indication:Tobacco abuse, in remission (Renamed from Tobacco dependence in remission) Start:21-Oct-2018 Instruction Type:Provider Instructions for Treatment How to access health information online Indication:Anxiety Start:18-Sep-2018 Instruction Type:Patient Education How to access health information online - Detail Indication:Anxiety Start:18-Sep-2018 Instruction Type:Patient Education Patient Instructions Indication:Anxiety Start:18-Sep-2018 Instruction Type:Provider Instructions for Treatment How to access health information online Indication:Nonsmoker Start: 8 Instruction Type:Patient Education How to access health information online - Detail Indication:Nonsmoker Start: 8 Instruction Type:Patient Education Patient Instructions Indication:Nonsmoker Start: 8 Instruction Type:Provider Instructions for Treatment How to access health information online Indication:Tobacco abuse, in remission (Renamed from Tobacco dependence in remission) Start:22-Oct-2017 Instruction Type:Patient Education How to access health information online - Detail Indication:Tobacco abuse, in remission (Renamed from Tobacco dependence in remission) Start:22-Oct-2017 Instruction Type:Patient Education Patient Instructions Indication:Tobacco abuse, in remission (Renamed from Tobacco dependence in remission) Start:22-Oct-2017 Instruction Type:Provider Instructions for Treatment How to access health information online Indication:Nonsmoker Start: 8 Instruction Type:Patient Education How to access health information online - Detail Indication:Nonsmoker Start: 8 Instruction Type:Patient Education Patient Instructions Indication:Nonsmoker Start: 8 Instruction Type:Provider Instructions for Treatment How to access health information online Indication:BMI between 19-24,adult Start: 7 Instruction Type:Patient Education How to access health information online - Detail Indication:BMI between 19-24,adult Start: 7 Instruction Type:Patient Education Patient Instructions Indication:BMI between 19-24,adult Start: 7 Instruction Type:Provider Instructions for Treatment How to access health information online Indication:Sore throat Start: 7 Instruction Type:Patient Education How to access health information online - Detail Indication:Sore throat Start: 7 Instruction Type:Patient Education Patient Instructions Indication:Sore throat Start: 7 Instruction Type:Provider Instructions for Treatment How to access health information online Indication:Earache Start: 7 Instruction Type:Patient Education How to access health information online - Detail Indication:Earache Start: 7 Instruction Type:Patient Education Patient Instructions Indication:Earache Start: 7 Instruction Type:Provider Instructions for Treatment How to access health information online Indication:Shoulder impingement, left Start: 6 Instruction Type:Patient Education How to access health information online - Detail Indication:Shoulder impingement, left Start: 6 Instruction Type:Patient Education Patient Instructions Indication:Shoulder impingement, left Start: 6 Instruction Type:Provider Instructions for Treatment How to access health information online Indication:S/P hysterectomy Start: 6 Instruction Type:Patient Education How to access health information online - Detail Indication:S/P hysterectomy Start: 6 Instruction Type:Patient Education Patient Instructions Indication:S/P hysterectomy Start: 6 Instruction Type:Provider Instructions for Treatment How to access health information online Indication:Myalgia Start: 5 Instruction Type:Patient Education How to access health information online - Detail Indication:Myalgia Start: 5 Instruction Type:Patient Education Patient Instructions Indication:Myalgia Start: 5 Instruction Type:Provider Instructions for Treatment How to access health information online Indication:Hypothyroidism Start: 5 Instruction Type:Patient Education How to access health information online - Detail Indication:Hypothyroidism Start: 5 Instruction Type:Patient Education Patient Instructions Indication:Hypothyroidism Start: 5 Instruction Type:Provider Instructions for Treatment Patient Instructions Indication:Hypothyroidism Start: 4 Instruction Type:Provider Instructions for Treatment Patient Instructions Indication:Calcium kidney stone Start: 2 Instruction Type:Provider Instructions for Treatment [facility]; [facility] Work Phone: Instructions Note Date & Type Note Facility Instructions Name Patient Instructions Indication:BMI 24.0-24.9, adult Start:21-Nov-2021 Instruction Type:Provider Instructions for Treatment How to Access Health Information Online using Patient Portal and [employer]rd [employer] Apps Indication:BMI 24.0-24.9, adult Start:21-Nov-2021 Instruction Type:Patient Education Patient Instructions Indication:Nonsmoker Start:17-Aug-2021 Instruction Type:Provider Instructions for Treatment How to Access Health Information Online using Patient Portal and [employer] Apps Indication:Nonsmoker Start:17-Aug-2021 Instruction Type:Patient Education Patient Instructions Indication:Tobacco abuse, in remission (Renamed from Tobacco dependence in remission) Start:20-Jun-2021 Instruction Type:Provider Instructions for Treatment How to Access Health Information Online using Patient Portal and [employer] Indication:Tobacco abuse, in remission (Renamed from Tobacco dependence in remission) Start:20-Jun-2021 Instruction Type:Patient Education Patient Instructions Indication:Nonsmoker Start: Instruction Type:Provider Instructions for Treatment How to Access Health Information Online using Patient Portal and [employer] Apps Indication:Nonsmoker Start: Instruction Type:Patient Education Patient Instructions Indication:Nonsmoker Start:19-May-2021 Instruction Type:Provider Instructions for Treatment How to Access Health Information Online using Patient Portal and [employer] Apps Indication:Nonsmoker Start:19-May-2021 Instruction Type:Patient Education How to access health information online Indication:Nonsmoker Start:22-Apr-2020 Instruction Type:Patient Education How to access health information online - Detail Indication:Nonsmoker Start:22-Apr-2020 Instruction Type:Patient Education Patient Instructions Indication:Nonsmoker Start:22-Apr-2020 Instruction Type:Provider Instructions for Treatment How to access health information online Indication:Nonsmoker Start: Instruction Type:Patient Education How to access health information online - Detail Indication:Nonsmoker Start: Instruction Type:Patient Education Patient Instructions Indication:Upper respiratory infection, viral Start: Instruction Type:Provider Instructions for Treatment How to access health information online Indication:Tobacco abuse, in remission (Renamed from Tobacco dependence in remission) Start:21-Oct-2018 Instruction Type:Patient Education How to access health information online - Detail Indication:Tobacco abuse, in remission (Renamed from Tobacco dependence in remission) Start:21-Oct-2018 Instruction Type:Patient Education Patient Instructions Indication:Tobacco abuse, in remission (Renamed from Tobacco dependence in remission) Start:21-Oct-2018 Instruction Type:Provider Instructions for Treatment How to access health information online Indication:Anxiety Start:18-Sep-2018 Instruction Type:Patient Education How to access health information online - Detail Indication:Anxiety Start:18-Sep-2018 Instruction Type:Patient Education Patient Instructions Indication:Anxiety Start:18-Sep-2018 Instruction Type:Provider Instructions for Treatment How to access health information online Indication:Nonsmoker Start: 8 Instruction Type:Patient Education How to access health information online - Detail Indication:Nonsmoker Start: 8 Instruction Type:Patient Education Patient Instructions Indication:Nonsmoker Start: 8 Instruction Type:Provider Instructions for Treatment How to access health information online Indication:Tobacco abuse, in remission (Renamed from Tobacco dependence in remission) Start:22-Oct-2017 Instruction Type:Patient Education How to access health information online - Detail Indication:Tobacco abuse, in remission (Renamed from Tobacco dependence in remission) Start:22-Oct-2017 Instruction Type:Patient Education Patient Instructions Indication:Tobacco abuse, in remission (Renamed from Tobacco dependence in remission) Start:22-Oct-2017 Instruction Type:Provider Instructions for Treatment How to access health information online Indication:Nonsmoker Start: 8 Instruction Type:Patient Education How to access health information online - Detail Indication:Nonsmoker Start: 8 Instruction Type:Patient Education Patient Instructions Indication:Nonsmoker Start: 8 Instruction Type:Provider Instructions for Treatment How to access health information online Indication:BMI between 19-24,adult Start: 7 Instruction Type:Patient Education How to access health information online - Detail Indication:BMI between 19-24,adult Start: 7 Instruction Type:Patient Education Patient Instructions Indication:BMI between 19-24,adult Start: 7 Instruction Type:Provider Instructions for Treatment How to access health information online Indication:Sore throat Start: 7 Instruction Type:Patient Education How to access health information online - Detail Indication:Sore throat Start: 7 Instruction Type:Patient Education Patient Instructions Indication:Sore throat Start: 7 Instruction Type:Provider Instructions for Treatment How to access health information online Indication:Earache Start: 7 Instruction Type:Patient Education How to access health information online - Detail Indication:Earache Start: 7 Instruction Type:Patient Education Patient Instructions Indication:Earache Start: 7 Instruction Type:Provider Instructions for Treatment How to access health information online Indication:Shoulder impingement, left Start: 6 Instruction Type:Patient Education How to access health information online - Detail Indication:Shoulder impingement, left Start: 6 Instruction Type:Patient Education Patient Instructions Indication:Shoulder impingement, left Start: 6 Instruction Type:Provider Instructions for Treatment How to access health information online Indication:S/P hysterectomy Start: 6 Instruction Type:Patient Education How to access health information online - Detail Indication:S/P hysterectomy Start: 6 Instruction Type:Patient Education Patient Instructions Indication:S/P hysterectomy Start: 6 Instruction Type:Provider Instructions for Treatment How to access health information online Indication:Myalgia Start: 5 Instruction Type:Patient Education How to access health information online - Detail Indication:Myalgia Start: 5 Instruction Type:Patient Education Patient Instructions Indication:Myalgia Start: 5 Instruction Type:Provider Instructions for Treatment How to access health information online Indication:Hypothyroidism Start: 5 Instruction Type:Patient Education How to access health information online - Detail Indication:Hypothyroidism Start: 5 Instruction Type:Patient Education Patient Instructions Indication:Hypothyroidism Start: 5 Instruction Type:Provider Instructions for Treatment Patient Instructions Indication:Hypothyroidism Start: 4 Instruction Type:Provider Instructions for Treatment Patient Instructions Indication:Calcium kidney stone Start: 2 Instruction Type:Provider Instructions for Treatment [facility]; [facility] Work Phone: Instructions Note Date & Type Note Facility Instructions Name Patient Instructions Indication:BMI 24.0-24.9, adult Start:21-Nov-2021 Instruction Type:Provider Instructions for Treatment How to Access Health Information Online using Patient Portal and [employer]rd [employer] Apps Indication:BMI 24.0-24.9, adult Start:21-Nov-2021 Instruction Type:Patient Education Patient Instructions Indication:Nonsmoker Start:17-Aug-2021 Instruction Type:Provider Instructions for Treatment How to Access Health Information Online using Patient Portal and [employer]rd [employer] Apps Indication:Nonsmoker Start:17-Aug-2021 Instruction Type:Patient Education Patient Instructions Indication:Tobacco abuse, in remission (Renamed from Tobacco dependence in remission) Start:20-Jun-2021 Instruction Type:Provider Instructions for Treatment How to Access Health Information Online using Patient Portal and [employer] Indication:Tobacco abuse, in remission (Renamed from Tobacco dependence in remission) Start:20-Jun-2021 Instruction Type:Patient Education Patient Instructions Indication:Nonsmoker Start: Instruction Type:Provider Instructions for Treatment How to Access Health Information Online using Patient Portal and [employer]rd [employer] Apps Indication:Nonsmoker Start: Instruction Type:Patient Education Patient Instructions Indication:Nonsmoker Start:19-May-2021 Instruction Type:Provider Instructions for Treatment How to Access Health Information Online using Patient Portal and [employer]rd [employer] Apps Indication:Nonsmoker Start:19-May-2021 Instruction Type:Patient Education How to access health information online Indication:Nonsmoker Start:22-Apr-2020 Instruction Type:Patient Education How to access health information online - Detail Indication:Nonsmoker Start:22-Apr-2020 Instruction Type:Patient Education Patient Instructions Indication:Nonsmoker Start:22-Apr-2020 Instruction Type:Provider Instructions for Treatment How to access health information online Indication:Nonsmoker Start: 9 Instruction Type:Patient Education How to access health information online - Detail Indication:Nonsmoker Start: Instruction Type:Patient Education Patient Instructions Indication:Upper respiratory infection, viral Start: Instruction Type:Provider Instructions for Treatment How to access health information online Indication:Tobacco abuse, in remission (Renamed from Tobacco dependence in remission) Start:21-Oct-2018 Instruction Type:Patient Education How to access health information online - Detail Indication:Tobacco abuse, in remission (Renamed from Tobacco dependence in remission) Start:21-Oct-2018 Instruction Type:Patient Education Patient Instructions Indication:Tobacco abuse, in remission (Renamed from Tobacco dependence in remission) Start:21-Oct-2018 Instruction Type:Provider Instructions for Treatment How to access health information online Indication:Anxiety Start:18-Sep-2018 Instruction Type:Patient Education How to access health information online - Detail Indication:Anxiety Start:18-Sep-2018 Instruction Type:Patient Education Patient Instructions Indication:Anxiety Start:18-Sep-2018 Instruction Type:Provider Instructions for Treatment How to access health information online Indication:Nonsmoker Start: 8 Instruction Type:Patient Education How to access health information online - Detail Indication:Nonsmoker Start: 8 Instruction Type:Patient Education Patient Instructions Indication:Nonsmoker Start: 8 Instruction Type:Provider Instructions for Treatment How to access health information online Indication:Tobacco abuse, in remission (Renamed from Tobacco dependence in remission) Start:22-Oct-2017 Instruction Type:Patient Education How to access health information online - Detail Indication:Tobacco abuse, in remission (Renamed from Tobacco dependence in remission) Start:22-Oct-2017 Instruction Type:Patient Education Patient Instructions Indication:Tobacco abuse, in remission (Renamed from Tobacco dependence in remission) Start:22-Oct-2017 Instruction Type:Provider Instructions for Treatment How to access health information online Indication:Nonsmoker Start: 8 Instruction Type:Patient Education How to access health information online - Detail Indication:Nonsmoker Start: 8 Instruction Type:Patient Education Patient Instructions Indication:Nonsmoker Start: 8 Instruction Type:Provider Instructions for Treatment How to access health information online Indication:BMI between 19-24,adult Start: 7 Instruction Type:Patient Education How to access health information online - Detail Indication:BMI between 19-24,adult Start: 7 Instruction Type:Patient Education Patient Instructions Indication:BMI between 19-24,adult Start: 7 Instruction Type:Provider Instructions for Treatment How to access health information online Indication:Sore throat Start: 7 Instruction Type:Patient Education How to access health information online - Detail Indication:Sore throat Start: 7 Instruction Type:Patient Education Patient Instructions Indication:Sore throat Start: 7 Instruction Type:Provider Instructions for Treatment How to access health information online Indication:Earache Start: 7 Instruction Type:Patient Education How to access health information online - Detail Indication:Earache Start: 7 Instruction Type:Patient Education Patient Instructions Indication:Earache Start: 7 Instruction Type:Provider Instructions for Treatment How to access health information online Indication:Shoulder impingement, left Start: 6 Instruction Type:Patient Education How to access health information online - Detail Indication:Shoulder impingement, left Start: 6 Instruction Type:Patient Education Patient Instructions Indication:Shoulder impingement, left Start: 6 Instruction Type:Provider Instructions for Treatment How to access health information online Indication:S/P hysterectomy Start: 6 Instruction Type:Patient Education How to access health information online - Detail Indication:S/P hysterectomy Start: 6 Instruction Type:Patient Education Patient Instructions Indication:S/P hysterectomy Start: 6 Instruction Type:Provider Instructions for Treatment How to access health information online Indication:Myalgia Start: 5 Instruction Type:Patient Education How to access health information online - Detail Indication:Myalgia Start: 5 Instruction Type:Patient Education Patient Instructions Indication:Myalgia Start: 5 Instruction Type:Provider Instructions for Treatment How to access health information online Indication:Hypothyroidism Start: 5 Instruction Type:Patient Education How to access health information online - Detail Indication:Hypothyroidism Start: 5 Instruction Type:Patient Education Patient Instructions Indication:Hypothyroidism Start: 5 Instruction Type:Provider Instructions for Treatment Patient Instructions Indication:Hypothyroidism Start: 4 Instruction Type:Provider Instructions for Treatment Patient Instructions Indication:Calcium kidney stone Start: 2 Instruction Type:Provider Instructions for Treatment [facility]; [facility] Work Phone: Instructions Note Date & Type Note Facility Instructions Name Patient Instructions Indication:BMI 24.0-24.9, adult Start:21-Nov-2021 Instruction Type:Provider Instructions for Treatment How to Access Health Information Online using Patient Portal and [employer]rd [employer] Apps Indication:BMI 24.0-24.9, adult Start:21-Nov-2021 Instruction Type:Patient Education Patient Instructions Indication:Nonsmoker Start:17-Aug-2021 Instruction Type:Provider Instructions for Treatment How to Access Health Information Online using Patient Portal and [employer] Indication:Nonsmoker Start:17-Aug-2021 Instruction Type:Patient Education Patient Instructions Indication:Tobacco abuse, in remission (Renamed from Tobacco dependence in remission) Start:20-Jun-2021 Instruction Type:Provider Instructions for Treatment How to Access Health Information Online using Patient Portal and [employer] Apps Indication:Tobacco abuse, in remission (Renamed from Tobacco dependence in remission) Start:20-Jun-2021 Instruction Type:Patient Education Patient Instructions Indication:Nonsmoker Start: Instruction Type:Provider Instructions for Treatment How to Access Health Information Online using Patient Portal and [employer] Apps Indication:Nonsmoker Start: Instruction Type:Patient Education Patient Instructions Indication:Nonsmoker Start:19-May-2021 Instruction Type:Provider Instructions for Treatment How to Access Health Information Online using Patient Portal and [employer]rd [employer] Apps Indication:Nonsmoker Start:19-May-2021 Instruction Type:Patient Education How to access health information online Indication:Nonsmoker Start:22-Apr-2020 Instruction Type:Patient Education How to access health information online - Detail Indication:Nonsmoker Start:22-Apr-2020 Instruction Type:Patient Education Patient Instructions Indication:Nonsmoker Start:22-Apr-2020 Instruction Type:Provider Instructions for Treatment How to access health information online Indication:Nonsmoker Start: 9 Instruction Type:Patient Education How to access health information online - Detail Indication:Nonsmoker Start: Instruction Type:Patient Education Patient Instructions Indication:Upper respiratory infection, viral Start: 9 Instruction Type:Provider Instructions for Treatment How to access health information online Indication:Tobacco abuse, in remission (Renamed from Tobacco dependence in remission) Start:21-Oct-2018 Instruction Type:Patient Education How to access health information online - Detail Indication:Tobacco abuse, in remission (Renamed from Tobacco dependence in remission) Start:21-Oct-2018 Instruction Type:Patient Education Patient Instructions Indication:Tobacco abuse, in remission (Renamed from Tobacco dependence in remission) Start:21-Oct-2018 Instruction Type:Provider Instructions for Treatment How to access health information online Indication:Anxiety Start:18-Sep-2018 Instruction Type:Patient Education How to access health information online - Detail Indication:Anxiety Start:18-Sep-2018 Instruction Type:Patient Education Patient Instructions Indication:Anxiety Start:18-Sep-2018 Instruction Type:Provider Instructions for Treatment How to access health information online Indication:Nonsmoker Start: 8 Instruction Type:Patient Education How to access health information online - Detail Indication:Nonsmoker Start: 8 Instruction Type:Patient Education Patient Instructions Indication:Nonsmoker Start: 8 Instruction Type:Provider Instructions for Treatment How to access health information online Indication:Tobacco abuse, in remission (Renamed from Tobacco dependence in remission) Start:22-Oct-2017 Instruction Type:Patient Education How to access health information online - Detail Indication:Tobacco abuse, in remission (Renamed from Tobacco dependence in remission) Start:22-Oct-2017 Instruction Type:Patient Education Patient Instructions Indication:Tobacco abuse, in remission (Renamed from Tobacco dependence in remission) Start:22-Oct-2017 Instruction Type:Provider Instructions for Treatment How to access health information online Indication:Nonsmoker Start: 8 Instruction Type:Patient Education How to access health information online - Detail Indication:Nonsmoker Start: 8 Instruction Type:Patient Education Patient Instructions Indication:Nonsmoker Start: 8 Instruction Type:Provider Instructions for Treatment How to access health information online Indication:BMI between 19-24,adult Start: 7 Instruction Type:Patient Education How to access health information online - Detail Indication:BMI between 19-24,adult Start: 7 Instruction Type:Patient Education Patient Instructions Indication:BMI between 19-24,adult Start: 7 Instruction Type:Provider Instructions for Treatment How to access health information online Indication:Sore throat Start: 7 Instruction Type:Patient Education How to access health information online - Detail Indication:Sore throat Start: 7 Instruction Type:Patient Education Patient Instructions Indication:Sore throat Start: 7 Instruction Type:Provider Instructions for Treatment How to access health information online Indication:Earache Start: 7 Instruction Type:Patient Education How to access health information online - Detail Indication:Earache Start: 7 Instruction Type:Patient Education Patient Instructions Indication:Earache Start: 7 Instruction Type:Provider Instructions for Treatment How to access health information online Indication:Shoulder impingement, left Start: 6 Instruction Type:Patient Education How to access health information online - Detail Indication:Shoulder impingement, left Start: 6 Instruction Type:Patient Education Patient Instructions Indication:Shoulder impingement, left Start: 6 Instruction Type:Provider Instructions for Treatment How to access health information online Indication:S/P hysterectomy Start: 6 Instruction Type:Patient Education How to access health information online - Detail Indication:S/P hysterectomy Start: 6 Instruction Type:Patient Education Patient Instructions Indication:S/P hysterectomy Start: 6 Instruction Type:Provider Instructions for Treatment How to access health information online Indication:Myalgia Start: 5 Instruction Type:Patient Education How to access health information online - Detail Indication:Myalgia Start: 5 Instruction Type:Patient Education Patient Instructions Indication:Myalgia Start: 5 Instruction Type:Provider Instructions for Treatment How to access health information online Indication:Hypothyroidism Start: 5 Instruction Type:Patient Education How to access health information online - Detail Indication:Hypothyroidism Start: 5 Instruction Type:Patient Education Patient Instructions Indication:Hypothyroidism Start: 5 Instruction Type:Provider Instructions for Treatment Patient Instructions Indication:Hypothyroidism Start: 4 Instruction Type:Provider Instructions for Treatment Patient Instructions Indication:Calcium kidney stone Start: 2 Instruction Type:Provider Instructions for Treatment [facility]; [facility] [...] ized section and content) DATE CREATED AUTHOR 12/04/2017 [facility] DATE CREATED AUTHOR AUTHOR'[place] RIVERA ATMERON 09/20/2018 [facility] FOR RECORDS PERTAINING TO PATIENTS WHO ARE [...] BE BASED ON THE PRIMARY CLINICAL RECORDS. [facility]. provides no warranty or guarantee of the accuracy or completeness of information in this document.
== END 2024-04-16 20:07 | disposition left against medical advice (07) ==
LOC: ED 20:17
PROVIDERS: PCP Family Medicine
DX: Z53.21 Procedure and treatment not carried out due to patient leaving prior to being seen by health care provider (principal)

== ENCOUNTER → 2024-06-24 | Outpatient (CLI) | payer MEDICARE, OTHER, SELFPAY ==
[2024-06-24 10:25] LABS: Hematocrit 33.4 % (37-47); Hemoglobin 11.1 g/dL (12.0-15.0); Mean Corp Hgb Conc 33.2 g/dL (32-36); Mean Corpuscular Hgb 32.3 pg (27.0-32.0); Mean Corpuscular Volume 97.1 fL (81-99); Mean Platelet Vol. 7.6 fl (6.2-12.0); Platelet Count 554 K/mm3 (150-450); RBC Distribution Width CV 12.9 % (11.6-14.6); RBC Distribution Width SD 45.7 fl (35.1-43.9); Red Blood Count 3.44 M/mm3 (4.2-5.4); White Blood Count 4.9 K/mm3 (4.4-11.0)
[2024-06-24 12:48] LABS: Vitamin D,25 Hydroxy 67.7 ng/mL
[2024-06-24 12:55] LABS: ALB/GLOB Ratio 1.1 RATIO (0.9-2.4); AST(SGOT) 12 U/L (15-37); Alanine Aminotransfer ALT/SGPT 21 U/L (13-56); Albumin, Serum 3.9 g/dL (3.2-5.0); Alkaline Phosphatase 75 U/L (45-117); Anion Gap 7 (5-15); BUN 7 mg/dL (7-18); BUN/Creat Ratio 7.8 RATIO (10-20); Calcium,Total 9.1 mg/dL (8.5-10.1); Chloride 95 mmol/L (98-107); Cholesterol 212 mg/dL (200); Creatinine, Serum 0.89 mg/dL (0.55-1.02); EST Glomerular Filtration Rate 67 mL/min (>60); Est Glom Filt Rate - Afr Amer 81 mL/min (>60); Ferritin 44 ng/mL (8-252); Globulin 3.4 g/dL (2.2-4.2); Glucose 83 mg/dL (74-106); High Density Lipoprotein 62 mg/dL; Iron 93 ug/dL (50-170); Iron Binding Capacity,Total 424 ug/dL (250-450); Potassium 4.5 mmol/L (3.5-5.1); Protein, Total 7.3 g/dL (6.4-8.2); Sodium Level 126 mmol/L (136-145); Triglycerides 275 mg/dL; Very Low Density Lipoprotein 55 mg/dL (5-40)
== END | disposition home or self-care (01) ==
LOC: MTLAB 09:05
PROVIDERS: PCP Family Medicine; Referring Provider Family Medicine; Visit Provider Family Medicine
DX: I10 Essential (primary) hypertension (principal); E87.1 Hypo-osmolality and hyponatremia; R53.83 Other fatigue; D64.9 Anemia, unspecified; E03.9 Hypothyroidism, unspecified
CPT/HCPCS: 36415; 80053; 80061; 82306; 82728; 83540; 83550; 84443; 85027

== ENCOUNTER → 2024-08-05 | Outpatient (CLI) | payer MEDICARE, OTHER, SELFPAY ==
--- NOTE | 2024-08-05 11:39 | RAD_ITS ---
PROCEDURE: PELVIS 1 OR 2 VIEWS REASON FOR EXAM: 68-year-old female, right hip pain x3 weeks, no known injury. TECHNIQUE: 1 view(s) of the pelvis. COMPARISON: Lumbar spine radiographs 07/25/2024. FINDINGS: No fracture. No suspicious bone lesion. Arthrosis of the bilateral sacroiliac joints. Normal alignment at the hips. Soft tissues are unremarkable. RAD/Pelvis 1 or 2 Views IMPRESSION: NEGATIVE PELVIS Reading Location: [id number]
== END | disposition home or self-care (01) ==
LOC: RAD 11:35
PROVIDERS: PCP Family Medicine; Referring Provider Anesthesiology; Visit Provider Anesthesiology
DX: M25.551 Pain in right hip (principal)
CPT/HCPCS: 72170

== ENCOUNTER 2024-08-27 10:00 | Outpatient (RCR) | payer MEDICARE, OTHER, SELFPAY ==
--- NOTE | 2024-07-30 12:21 | HP.PTEVAL ---
Patient's Visit Information Visit Information Visit Information: KIM BRIONES is a 68 year old F referred to Physical Therapy by VICKY Augustin with a diagnosis of OTHER INTERVERTEBRAL DISC DEGENERATION ,LUMBAR W/O MENTION LUMBAR PAIN. Date of Evaluation: 07/30/24 Physical Therapist: Keith Goldstein, PT, Cert MDT, OCS Visit Plan Frequency: 2x /Week Duration: 4 Weeks Plan: X-RAYS DID SHOWED COMPRESSION DEFORMITY l3 PT INTERVENTIONS DLS ,POSTURAL EX'S,ACTIVITY MODIFICATION AND MODALITIES FOR PAIN Subjective Subjective: This 68 y/o female presents to physical therapy with lumbar pain with radicular symptom in right hip. Patient has had symptoms for ~ 2 weeks progressively worse. Patient see PA x-rays L3 wedge compression fx and DDD . Showed osteopenia. Patient had old MRI showed Subacute T5 compression fracture. Chronic T9 and T11 compression fractures in 2002 and last bone density test 2020.She reports a coughing a sneezing fit one week ago and during that she pulled something in her low back. Patient .complains of centralized low back pain that radiates into her right hip. Currently pain in hip. Dr wants to do MRI but needs PT . Recommended pain management. Patient pain is worse. Patient plans to return this Sunday. Prescribed muscle relaxer. Aggravating factors walking/standing ,sitting ,bending. Alleviating factors rest ,aleve heat..Denies paresthesia/tingling - . Coughing/sneezing +. Bowel/bladder-. Patient pain affects sleeping. Patient condition affects QOL and ADLS Patient goals to decreae pain. SOCIAL: VOCATION: RETIRED Pain Bilateral Back: Pain Intensity (Out of 10): 0 Pain Intensity Range: 10 Right Hip: Pain Intensity (Out of 10): 8 Pain Intensity Range: 10 Objective Objective: POSTURE: mild forward posture GAIT: antalgic gait right side NEURO: denies paresthesia/tingling ,reflexes L3-4 ,L4-5 ,L5-S1 2/3 PALPATIONS: unremarkable PROM: hip WFL MMT: quads/hams/hip 4/5 ,ankle 4.5 ,hip abd 4-/5 LUMBAR ROM : flexion mod loss pain ,extension min loss ,side glides min loss FKEXABLITY: hamstrings min tight Special Tests L/S Slump test left side: Negative L/S Slump test right side: Negative L/S Left Straight Leg Raise: Negative Balance/Special Test Scores Oswestry Low Back Score: 33 Goals Goal 1:: Patient to be I with HEP for back Goal Time Frame: 4-6 Weeks Goal 2:: Patient to improve lumbar ROM for function of recovery for putting on shoes Goal Time Frame: 4-6 Weeks Goal 3:: This patient to demonstrate 50 improvement with less pain and improved function Goal Time Frame: 4-6 Weeks Goal 4:: Patient to improve back oswestry score by 5 points to improve QOL Goal Time Frame: 4-6 Weeks Goal 5:: Patient to normalize gait pattern w/o antalgic gait Goal Time Frame: 4-6 Weeks Rehabilitation Potential Physical Therapy Diagnosis: This patient has right lateral hip pain with pain with motion and positioning pain with walking/standing and flexion with pain and decrease thus benefit from skilled PT Rehabilitation Potential: Good Anticipated Interventions Patient/Client Instruction: Educate patient on: Condition and Plan of Care For the Purpose of:: To decrease pain, To increase ROM, To improve muscle performance and motor function, To improve ability to perform ADL's, To increase tolerance to activity/condition/position, To improve performance and independence with ADL's, To improve ability of physical actions for home/community/work/leisure, To improve health of tissue, To decrease soft tissue restriction and To increase flexibility/ROM Therapeutic Exercise to Include: Strength training, Balance training, Postural training, Flexibilty training and Dynamic Lumbar Stabilization For the Purpose of:: To decrease pain, To increase ROM, To improve muscle performance and motor function, To improve ability to perform ADL's, To increase tolerance to activity/condition/position, To improve ability of physical actions for home/community/work/leisure, To improve health of tissue, To decrease soft tissue restriction, To increase flexibility/ROM, To prevent re-injury and To improve tolerance to ADL's TENS: Yes IF ES: Yes Cryotherapy (ice pack, ice massage): Yes Thermo therapy (hot pack): Yes Ultrasound (thermal/non thermal): Yes For the Purpose of:: To decrease pain, To increase ROM, To improve nutrient delivery to tissue, To increase oxygenation perfusion, To improve health of tissue and To decrease soft tissue restriction Text: Thank you for the opportunity to evaluate your patient. For Medicare and Medicare HMO plans, please review the plan of care and approve it. It will need to be FAXED BACK to us at [phone] for Medicare purposes. For Medicare only, by signing this I certify the plan of care. Please let me know if there are questions or concerns regarding this plan of care. Physician Signature: Date:
--- NOTE | 2024-08-27 10:53 | HP.PTDCSUM ---
Discharge Summary D/C summary: It has been my pleasure to treat KIM BRIONES referred by VICKY Augustin, with the diagnosis of OTHER INTERVERTEBRAL DISC DEGENERATION ,LUMBAR W/O MENTION LUMBAR PAIN for a total of 9 visit(s). Discharge Date: 08/27/24 Please see the following information for a summary of their discharge status. Subjective Subjective: Not doing well pain is same Plan to see DR Spence pain management Pain in back and hip Pain Bilateral Back: Pain Intensity (Out of 10): 7 Right Hip: Pain Intensity (Out of 10): 7 Overall Improvement % Improvement: 0 Objective Objective/Function: Objective: POSTURE: mild forward posture GAIT: antalgic gait right side NEURO: denies paresthesia/tingling ,reflexes L3-4 ,L4-5 ,L5-S1 2/3 PALPATIONS: unremarkable PROM: hip WFL MMT: quads/hams/hip 4/5 ,ankle 4.5 ,hip abd 4-/5 LUMBAR ROM : flexion mod loss pain ,extension min loss ,side glides min loss FLEXABLITY: hamstrings min tight Goals Goal 1:: Patient to be I with HEP for back Goal Progress: Progressing Goal 2:: Patient to improve lumbar ROM for function of recovery for putting on shoes Goal Progress: Progressing Goal 3:: This patient to demonstrate 50 improvement with less pain and improved function Goal Progress: Progressing Goal 4:: Patient to improve back oswestry score by 5 points to improve QOL Goal Progress: Progressing Goal 5:: Patient to normalize gait pattern w/o antalgic gait Goal Progress: Progressing Plan Plan: RTD WILL NEED MRI PER MD D/C Information Discharge Comments: RTD MRI BONE DENSITY d/c sentence: If there are questions or concerns regarding this patient's physical therapy, please feel free to call me at [phone]. Thank you for the referral of this patient. Sincerely, Ketih Goldstein, PT, Cert MDT, OCS Balance/Gait/Functional tests Balance/Special Test Scores Oswestry Low Back Score: 33 Improvement % Improvement: 0
== END 2024-08-27 19:00 | disposition home or self-care (01) ==
LOC: PT 10:00
PROVIDERS: PCP Family Medicine; Visit Provider Student in an Organized Health Care Education/Training Program
DX: M51.369 Other intervertebral disc degeneration, lumbar region without mention of lumbar back pain or lower extremity pain (principal)
CPT/HCPCS: 97110; 97162; 97530

== ENCOUNTER → 2024-09-02 | Outpatient (CLI) | payer MEDICARE, OTHER, SELFPAY ==
[2024-09-02 13:10] LABS: Amphetamine Urine NEGATIVE (<1000 ng/mL); Barbiturate Urine NEGATIVE (< 200 ng/mL); Benzodiazepine Urine NEGATIVE (< 200 ng/mL); Buprenorphine Urine NEGATIVE (< 200 ng/mL); Cocaine Urine NEGATIVE (< 300 ng/mL); Fentanyl, Urine NEGATIVE; Methadone Urine NEGATIVE (< 300 ng/mL); Opiates Urine NEGATIVE (< 300 ng/mL); Oxycodone, Urine NEGATIVE (< 100 ng/mL); PCP Urine NEGATIVE (< 25 ng/mL); THC Urine NEGATIVE (< 50 ng/mL)
== END | disposition home or self-care (01) ==
LOC: LAB 11:45
PROVIDERS: PCP Family Medicine; Referring Provider Anesthesiology; Visit Provider Anesthesiology
DX: F11.20 Opioid dependence, uncomplicated (principal)
CPT/HCPCS: 80307

== ENCOUNTER → 2024-09-08 | Outpatient (CLI) | payer MEDICARE, OTHER, SELFPAY ==
--- NOTE | 2024-09-08 10:11 | MRI_ITS ---
EXAM: MRI lumbar spine without contrast. CLINICAL HISTORY: Back pain COMPARISON: Lumbar spine radiograph 07/25/2024 TECHNIQUE: Multiplanar multisequence MRI of the lumbar spine. FINDINGS: Lumbar lordosis is maintained. Grade 1 anterolisthesis of L1 on L2. Acute- subacute mild compression deformity L2 vertebral body with increased T2/stir signal within the L2 vertebral body (series 9, image 9). There is mild retropulsion of the posterior superior fracture fragment with resultant canal stenosis. Remainder of the vertebral body heights are maintained. Disc spaces are within normal limits. Heterogenous marrow signal. The included distal thoracic cord is normal in caliber and signal. The conus medullaris terminates at L1 level. There is no clumping of the nerve roots. T12/L1: Disc bulge and facet degenerative changes with doubt significant canal stenosis. No significant neural foraminal narrowing. L1/2: Circumferential disc bulge ligamentum flavum hypertrophy and facet degenerative changes with severe canal stenosis. Findings are accentuated by the retropulsion from the posterior superior L2 endplate secondary to the aforementioned compression deformity. Moderate bilateral neural foraminal narrowing. L2/3: Circumferential disc bulge, ligamentum flavum hypertrophy and facet degenerative changes moderate canal stenosis. Moderate bilateral neural foraminal narrowing. L3/4: Disc bulge slightly asymmetric to the right, ligamentum flavum hypertrophy and facet degenerative changes with severe canal stenosis. Mild right subarticular recess narrowing. Mild-moderate bilateral neural foraminal narrowing. L4/5: Small circumferential disc bulge slightly asymmetric to the left, ligamentum flavum hypertrophy and facet degenerative changes with mild canal stenosis. Mild left neural foraminal narrowing. Right neural foramen is patent. L5/S1: Circumferential disc bulge and mild facet degenerative changes without significant canal stenosis or neural foraminal narrowing.. Moderate fatty atrophy of the paraspinal musculature. MRI/Spine Lumbar (Routine) IMPRESSION: 1. Acute-subacute compression deformity L2 vertebral body with posterior superi or endplate retropulsion and resultant severe canal stenosis. 2. Multilevel degenerative changes otherwise, with up to severe canal stenosis at L1-L2 and L3-L4 vertebral bodies. Reading Location: [facility]
== END | disposition home or self-care (01) ==
PROVIDERS: PCP Family Medicine; Referring Provider Anesthesiology Pain Medicine; Visit Provider Anesthesiology Pain Medicine
DX: M80.08XA Age-related osteoporosis with current pathological fracture, vertebra(e), initial encounter for fracture (principal); M54.16 Radiculopathy, lumbar region
CPT/HCPCS: 72148

== ENCOUNTER 2024-10-19 10:55 | Emergency (ER) | payer MEDICARE, OTHER, SELFPAY ==
[2024-10-19 10:57] VITALS: BP 155/97; PULSE 89; RESP 14; TEMP 36.6; O2SAT 99; BMI 25.6
--- NOTE | 2024-10-19 11:00 | ED.VIS.BACK ---
HPI History of Present Illness Chief Complaint: Back [facility] Medical History Dysphagia Hypertension Incontinence in female Hypothyroidism Chest pain Rectocele Vaginal vault prolapse after hysterectomy Cystocele with uterine descensus Hypothyroidism Home Medications ?Medication ?Instructions ?Recorded ?Last Taken ?Type calcium carbonate 1,000 mg PO DAILY 06/24/15 03/05/19 History cholecalciferol (vitamin D3) 25 50 mcg PO DAILY 06/24/15 03/05/19 History mcg (1,000 unit) tablet (Vitamin D3) levothyroxine 75 mcg tablet 75 mcg PO DAILY 06/24/15 03/06/19 History (Levoxyl) multivitamin with folic acid 400 1 tab PO DAILY 06/24/15 03/05/19 History mcg tablet (Thera) biotin 10,000 mcg capsule 5,000 mcg PO DAILY 10/03/18 03/05/19 History duloxetine 30 mg capsule,delayed 30 mg PO DAILY 06/28/23 Unknown History release lisinopril 10 mg tablet 10 mg PO DAILY 06/28/23 Unknown History vitamin K2 100 mcg capsule 100 mcg PO DAILY 07/13/23 Unknown History Tumeric 500 mg PO DAILY 07/16/23 Unknown History ferrous sulfate 325 mg (65 mg 325 mg PO DAILY 07/16/23 Unknown History iron) tablet (iron) cyclobenzaprine 5 mg tablet 5 mg PO TID PRN muscle spasm #30 07/25/24 Unknown Rx tabs furosemide 20 mg tablet mg PO DAILY 07/25/24 Unknown History rabeprazole 20 mg tablet,delayed 20 mg PO QAM 07/25/24 Unknown History release sodium chloride 1,000 mg soluble 1,000 mg PO TID 07/25/24 Unknown History tablet Allergy/AdvReac Type Severity Reaction Status Date / Time No Known Allergies Allergy Verified 10/19/24 10:56 Surgical History Hx of repair of rotator cuff Hx of breast augmentation History of bladder surgery H/O: hysterectomy Social History household members: spouse Smoking Status: Former smoker substance use type: does not use EXAM Physical Exam Const Vital Signs: 10/19/24 10:57 10/19/24 13:00 10/19/24 15:00 Temperature 97.8 F Temperature Source Temporal Pulse Rate 89 76 82 Respiratory Rate 14 14 18 Blood Pressure 155/97 H 129/76 H 128/74 H Blood Pressure Mean 116 93 92 Pulse Ox 99 97 97 Oxygen Delivery Method Room Air Room Air Room Air [facility] Narrative Medical decision making narrative: HISTORY OF PRESENT ILLNESS: Chief complaint: Back pain 69-year-old female history of history of lumbar stenosis as well as lumbar compression fracture hypertension, vaginal prolapse, hypothyroidism presents with back pain. Per patient she is having low back pain. She states she may be constipated. She also describes loose stool. States she feels there is something stuck in her rectum. States she has loose stool around there. States has no melena or hematochezia. No fever. No falls or trauma. No vomiting. No fever. Patient denies any saddle anesthesia, urinary retention, bowel or bladder incontinence, lower extremity weakness, fever or IV drug use, no recent spinal manipulation or surgery, no recent urinary catheterization. REVIEW OF SYSTEMS: Pertinent positives: Back pain, constipation Pertinent negatives: As per [facility] PHYSICAL EXAM: Nursing triage notes reviewed, Vital signs reviewed Constitutional: please see [facility] HENT: MMM Eyes: Pupils equal round and reactive to light, Extraocular muscles intact Neck: No stridor, no JVD, full neck ROM Lungs: Clear to auscultation, No wheezing or rales. No increased work of breathing, no conversational dyspnea, no accessory muscle use, no nasal flaring. No respiratory distress noted Heart: Regular rate and rhythm, No murmurs, No rubs and No gallops, 2+ distal pulses (radial, femoral, posterior tibial) in all extremities Abdomen: Soft, there is no tenderness, rigidity, rebound or guarding, no obvious peritoneal signs, no palpable pulsatile abdominal masses, no auscultated abdominal bruit : No CVAT Rectal: Performed glass setter MARILYN Waldron present. Rectal showed no evidence of fecal impaction. No hemorrhoids fissures or other abnormalities noted Extremities: No edema Back: TTP over lower lumbar spine. Neuro: No new focal neurological deficits, cranial nerves II through XII intact, 5/5 strength in all present extremities. Intact sensation to light touch in all present extremities, 2+ reflexes bilateral patella tendons. Skin: No rash or lesions noted MEDICAL DECISION MAKING: Chief Complaint: please see [facility] External records reviewed: Reviewed prior imaging studies: Reviewed MRI of the lumbar spine from August 2024 which shows acute/subacute compression deformity L2 vertebral body with posterior endplate retropulsion, severe canal stenosis, multilevel degenerative changes along L1-L4 vertebral bodies Factors affecting care: Lumbar compression fracture, as per HPI Social determinants of health: History of IV drug use History obtained from others: none Consults: none [facility] Narrative: The patient was initially hemodynamically stable, afebrile and nontoxic-appearing. Exam without fecal impaction. Given no fecal impaction patient report of lower abdominal pain/back pain and change in bowel habits obtained a broad lab and imaging workup to further elucidate etiology of the patient's complaints including a CT scan of her abdomen pelvis and a CT scan of her lumbar spine. I considered the following differential diagnosis: Musculoskeletal back pain, intra-abdominal pathology, AAA, nephrolithiasis, pyelonephritis I obtained a broad lab and imaging workup to further elucidate etiology of patient's complaints ALL IMAGES (IF OBTAINED) HAVE BEEN PERSONALLY REVIEWED AND INTERPRETED BY MYSELF. CT scan of the abdomen and pelvis showed no evidence of obvious bowel obstruction, perforation or other acute surgical pathology CT scan of the lumbar spine showed no new bony abnormalities noted stable compression fractures. CBC without leukocytosis, severe anemia, no thrombocytopenia. BMP with essentially baseline hyponatremia, no other significant electrolyte normalities, no signs of metabolic acidosis or endorgan hypoperfusion, no sign of hepatobiliary obstruction Lipase is wnl indicating no pancreatic inflammation Urinalysis shows no evidence of urinary inflammation suggestive of UTI. The synthesis of the patient's history, physical exam, labs images suggest no acute life or limb threatening etiology. I suspect her symptoms are secondary to her known compression deformity in her back. She has an outpatient surgical intervention scheduled tomorrow. Encouraged her to keep this appointment. Encouraged Tylenol ibuprofen in the meantime. The patient and/or family, caregivers express understanding. The patient and/or family, caregivers agrees with the plan. Shared decision making: I will have a discussion with the patient and or visitors regarding risk/benefits of further testing or admission. They will be made aware of of the risk/benefits inherent in this decision they will be given the opportunity to voice understanding. Total critical care time today provided was at least 0 minutes. This excludes separately billable procedures. Critical care time (if documented) is secondary to the patient having high probability of clinically significant/life threatening deterioration in the patient's condition which required my urgent intervention. Impression: 1. Acute back pain 2. Lumbar compression fracture Dispo: Discharged This note was generated with [employer] dictation software. It may contain incorrect words, spelling, and punctuation that were not noted in review of the chart prior to signing. Lab Data Labs: Laboratory Results - last 24 hr 10/19/24 10/19/24 11:34 12:30 WBC 10.3 RBC 4.22 Hgb 13.7 Hct 38.9 MCV 92.2 MCH 32.5 H MCHC 35.2 RDW Std Deviation 45.0 H RDW Coeff of Tatiana 13.4 Plt Count 493 H MPV 7.8 Immature Gran % (Auto) 0.900 Neut % (Auto) 72.5 H Lymph % (Auto) 16.2 L Hopkins % (Auto) 8.9 Eos % (Auto) 0.9 Baso % (Auto) 0.6 Absolute Neuts (auto) 7.5 Absolute Lymphs (auto) 1.67 Nucleated RBC % 0 Sodium 124 L Potassium 4.0 Chloride 87 L Carbon Dioxide 25.6 Anion Gap 12 BUN 8 Creatinine 1.00 Estim Creat Clear Calc 47.14 L Est GFR (MDRD) Non-Af 61 BUN/Creatinine Ratio 8.2 L Glucose 128 H Calcium 9.8 Total Bilirubin 0.47 AST 20 ALT 26 Alkaline Phosphatase 79 Total Protein 6.9 Albumin 4.0 Globulin 2.9 Albumin/Globulin Ratio 1.4 Lipase 57 Urine Color Yellow Urine Clarity Clear Urine pH 7.0 Ur Specific Josephine 1.005 Urine Protein TNP Urine Glucose (UA) Normal Urine Ketones Negative Urine Occult Blood 10 H Urine Nitrite Negative Urine Bilirubin Negative Urine Urobilinogen Normal Ur Leukocyte Esterase Negative Urine RBC 0 SEEN Urine WBC 0 SEEN Ur Squamous Epith Cells 0 SEEN Urine Bacteria 0 SEEN Urine Mucus 0 SEEN U Random Total Protein 6.4 Radiography Diagnostic Testing: Clinical Impression(s) from Imaging Studies Abdomen/Pelvis CT 10/19/24 12:14 IMPRESSION: Sigmoid diverticulosis without diverticulitis. Reading Location: [id number] Lumbar Spine CT 10/19/24 12:14 IMPRESSION: 1. No significant change in the lumbar spine compared to MRI 09/08/2024. 2. Stable superior L2 vertebral body compression deformity with mild retropulsion of the fracture fragment resulting in severe canal stenosis. Reading Location: [facility] Discharge Plan Triage Chief Complaint: Back ED Provider: Adam Barrios Dx/Rx/DC Orders Prescriptions: No Action vitamin K2 100 mcg capsule 100 mcg PO DAILY rabeprazole 20 mg tablet,delayed release (DR/EC) 20 mg PO QAM sodium chloride 1,000 mg tablet,soluble 1,000 mg PO TID furosemide 20 mg tablet PO DAILY cyclobenzaprine 5 mg tablet 5 mg PO TID PRN (Reason: muscle spasm) Qty: 30 0RF levothyroxine [Levoxyl] 75 MCG tablet 75 mcg PO DAILY Patient Comments: thyroid calcium carbonate 600 MG tablet 1,000 mg PO DAILY Patient Comments: supplement cholecalciferol (vitamin D3) [Vitamin D3] 1,000 UNIT tablet 50 mcg PO DAILY Patient Comments: supplement multivitamin with folic acid [Thera] 1 TABLET tablet 1 tab PO DAILY Patient Comments: supplement biotin 10,000 MCG capsule 5,000 mcg PO DAILY duloxetine 30 mg capsule,delayed release(DR/EC) 30 mg PO DAILY lisinopril 10 mg tablet 10 mg PO DAILY ferrous sulfate [iron] 325 mg (65 mg iron) tablet 325 mg PO DAILY Tumeric 500 mg PO DAILY Primary Care Provider: Frank Staley Referrals: Frank Staley MD [Primary Care Provider] - Print Language: South African
--- NOTE | 2024-10-19 12:14 | CT_ITS ---
PROCEDURE: ABDOMEN/PELVIS W IV CONT ONLY 10/19/2024 REASON FOR EXAM: LOWER ABDOMINAL PAIN TECHNIQUE: Abdomen and pelvis CT with intravenous contrast. Coronal and Sagittal reconstruction series were provided. PATIENT PREPARATION: Per protocol ORAL CONTRAST TYPE: None. AMOUNT: mL One or more dose reduction techniques were used (e.g., Automated exposure control, adjustment of the mA and/or kV according to patient size, use of iterative reconstruction technique. COMPARISON: 07/16/2023 FINDINGS: Lung bases: Mild dependent atelectasis Liver: Normal size. No mass. Gallbladder: Contracted gallbladder. Spleen: Normal size. Pancreas: Normal size without evidence of mass surrounding inflammation or ductal dilation. Adrenals: Unremarkable. Kidneys: Normal renal sizes. No hydronephrosis. Bladder: Unremarkable. Reproductive Organs: Unremarkable. Bowel: Colonic diverticulosis without diverticulitis. Appendix: The appendix is not identified. There is no inflammatory process identified in the right lower quadrant to suggest appendicitis. Lymph nodes: Unremarkable. Vasculature: Mild diffuse atherosclerotic calcifications are noted. Peritoneum / Retroperitoneum: Unremarkable Bones: Subacute compression fractures of the L1 and L2 vertebral bodies with retropulsion into the spinal canal as seen on recent MRI. Mild levoscoliosis of the lumbar spine with degenerative disc disease. CT/Abdomen/Pelvis W IV Cont ONLY IMPRESSION: Sigmoid diverticulosis without diverticulitis. Reading Location: [id number]
--- NOTE | 2024-10-19 12:14 | CT_ITS ---
PROCEDURE: SPINE LUMBAR WITHOUT CONTRAST 10/19/2024 REASON FOR EXAM: BACK PAIN TECHNIQUE: Lumbar spine CT without contrast. Coronal and Sagittal reconstruction series were provided. One or more dose reduction techniques were used (e.g., Automated exposure control, adjustment of the mA and/or kV according to patient size, use of iterative reconstruction technique COMPARISON: MRI L-spine 09/08/2024. RADIATION DOSE SUMMARY: CTDlvol: 20 mGy DLP: 500 mGycm FINDINGS: Vertebrae: Stable acute to subacute mild compression deformity of the superior L2 vertebral body with mild retropulsion of the posterior superior fracture fragment into the central canal. Mild chronic L1 superior endplate compression deformity. The vertebral body heights are otherwise maintained. Alignment: Mild lumbar lordosis. Grade 1 anterolisthesis of L1 onto L2. Degenerative disease: Better evaluated on recent MRI. Stable severe central canal stenosis at L1-2 due to the posterior fracture fragment. Sacrum: Diffuse osseous demineralization. Mild bilateral SI joint arthrosis. See same day CT abdomen pelvis for additional findings. CT/Spine Lumbar without Contrast IMPRESSION: 1. No significant change in the lumbar spine compared to MRI 09/08/2024. 2. Stable superior L2 vertebral body compression deformity with mild retropulsi on of the fracture fragment resulting in severe canal stenosis. Reading Location: [id number]
[2024-10-19 12:25] LABS: Absolute Lymphocyte Count 1.67 X10^3/uL (0.83-4.51); Absolute Neutrophil Count 7.5 X10^3/uL (2.0-7.7); Basophil# 0.06 X10^3/uL; Basophil% 0.6 % (0-1); Eosinophil# 0.09 X10^3/uL; Eosinophils% 0.9 % (0-5); Hematocrit 38.9 % (37-47); Hemoglobin 13.7 g/dL (12.0-15.0); Lymphocyte # 1.67 X10^3/ul (0.83-4.51); Lymphocyte % 16.2 % (19-41); Mean Corp Hgb Conc 35.2 g/dL (32-36); Mean Corpuscular Hgb 32.5 pg (27.0-32.0); Mean Corpuscular Volume 92.2 fL (81-99); Mean Platelet Vol. 7.8 fl (6.2-12.0); Monocyte# 0.92 X10^3/uL; Monocyte% 8.9 % (0-10); NRBC Flagged by Analyzer 0 % (0-5); Neutrophil # 7.47 X10^3/uL (2.7-7.7); Neutrophil % 72.5 % (47-70); Platelet Count 493 K/mm3 (150-450); RBC Distribution Width CV 13.4 % (11.6-14.6); Red Blood Count 4.22 M/mm3 (4.2-5.4); White Blood Count 10.3 K/mm3 (4.4-11.0)
[2024-10-19] MEDS: Ketorolac 15 MG/ML Vial IV (12:30)
[2024-10-19] MEDS: Ondansetron 4 MG/2 ML Vial IV (12:30)
[2024-10-19] MEDS: Morphine 4 MG/ML Syringe IV (12:30)
[2024-10-19] MEDS: 0.9% Normal Saline (1000mL) 1,000 ML 999 ML IV (12:30)
[2024-10-19 12:35] LABS: Bacteria 0 SEEN /hpf (None Seen); Mucous, Urine 0 SEEN /hpf (<or=2+); Red Blood Cells-Urine 0 SEEN /hpf (0-5); Squamous Epithelial Cells - UA 0 SEEN /hpf (5-10); White Blood Cells 0 SEEN /hpf (0-5)
[2024-10-19 12:48] LABS: ALB/GLOB Ratio 1.4 RATIO (0.9-2.4); AST(SGOT) 20 U/L (<=31); Alanine Aminotransfer ALT/SGPT 26 U/L (<=34); Alkaline Phosphatase 79 U/L (35-104); Anion Gap 12 (5-15); BUN 8 mg/dL (4-19); BUN/Creat Ratio 8.2 RATIO (10-20); Calcium,Total 9.8 mg/dL (7.6-11.0); Carbon Dioxide 25.6 mmol/L (21.0-32.0); Chloride 87 mmol/L (98-108); EST Glomerular Filtration Rate 61 (>60); Estimated Creatinine Clearance 47.14 ml/min (50-250); Globulin 2.9 g/dL (2.2-4.2); Glucose 128 mg/dL (70-99); Lipase 57 U/L (13-75); Protein, Total 6.9 g/dL (5.9-8.4); Sodium Level 124 mmol/L (133-145); Total Bilirubin 0.47 mg/dL (0.00-1.30)
[2024-10-19 13:00] VITALS: BP 129/76; PULSE 76; RESP 14; O2SAT 97
[2024-10-19 13:39] LABS: Color, Urine Yellow (Yellow); Glucose, Dipstick Normal (Normal); Ketone-Dipstick Negative (Negative); Leukocyte Esterase-Dipstick Negative /ul (Negative); Nitrite-Dipstick Negative (Negative); Occult Blood-Urine 10 /ul (Negative); Specific Gravity, Urine 1.005 (1.002-1.030); Urine Bilirubin Dipstick Negative (Negative); Urine Clarity Clear (Clear); Urine Urobilinogen Normal (Normal)
[2024-10-19 13:58] LABS: Protein, Urine (Random) 6.4 mg/dL (0.0-12.0)
[2024-10-19 15:00] VITALS: BP 128/74; PULSE 82; RESP 18; O2SAT 97
[2024-10-19 15:28] VITALS: BP 122/65; PULSE 82; RESP 18; TEMP 36.4; O2SAT 97
== END 2024-10-19 15:52 | disposition home or self-care (01) ==
LOC: ED 11:22
PROVIDERS: Emergency Provider Emergency Medicine; PCP Family Medicine; Visit Provider Emergency Medicine
DX: M48.56XA Collapsed vertebra, not elsewhere classified, lumbar region, initial encounter for fracture (principal); Z87.891 Personal history of nicotine dependence; M47.816 Spondylosis without myelopathy or radiculopathy, lumbar region; I10 Essential (primary) hypertension; M48.061 Spinal stenosis, lumbar region without neurogenic claudication
CPT/HCPCS: 72131; 74177; 80053; 81001; 83690; 84156; 85025; 96361; 96374; 96375; 99284; Q9967; J2405

== ENCOUNTER → 2025-02-10 | Outpatient (CLI) | payer MEDICARE, OTHER, SELFPAY ==
[2025-02-10 15:15] LABS: Hematocrit 36.4 % (37-47); Hemoglobin 12.3 g/dL (12.0-15.0); Mean Corp Hgb Conc 33.8 g/dL (32-36); Mean Corpuscular Volume 97.6 fL (81-99); Mean Platelet Vol. 8.3 fl (6.2-12.0); Platelet Count 602 K/mm3 (150-450); RBC Distribution Width CV 12.9 % (11.6-14.6); RBC Distribution Width SD 46.5 fl (35.1-43.9); Red Blood Count 3.73 M/mm3 (4.2-5.4); White Blood Count 7.5 K/mm3 (4.4-11.0)
[2025-02-10 15:55] LABS: AST(SGOT) 18 U/L (<=31); Alanine Aminotransfer ALT/SGPT 12 U/L (<=34); Albumin, Serum 3.9 g/dL (3.4-4.8); Alkaline Phosphatase 94 U/L (35-104); Anion Gap 11 (5-15); BUN 7 mg/dL (4-19); BUN/Creat Ratio 8.6 RATIO (10-20); Calcium,Total 9.5 mg/dL (7.6-11.0); Carbon Dioxide 24.0 mmol/L (21.0-32.0); Chloride 96 mmol/L (98-108); Globulin 2.6 g/dL (2.2-4.2); Glucose 88 mg/dL (70-99); Potassium 3.8 mmol/L (3.3-5.1); Vitamin D,25 Hydroxy 70.7 ng/mL (30-100)
== END | disposition home or self-care (01) ==
LOC: MTLAB 12:39
PROVIDERS: PCP Family Medicine; Referring Provider Family Medicine; Visit Provider Family Medicine
DX: I10 Essential (primary) hypertension (principal); F41.9 Anxiety disorder, unspecified; E55.9 Vitamin D deficiency, unspecified
CPT/HCPCS: 36415; 80053; 82306; 84443; 85027

== ENCOUNTER → 2025-02-13 | Outpatient (CLI) | payer MEDICARE, OTHER, SELFPAY ==
[2025-02-13 13:35] LABS: Anion Gap 11 (5-15); BUN 8 mg/dL (4-19); BUN/Creat Ratio 8.8 RATIO (10-20); Calcium,Total 9.3 mg/dL (7.6-11.0); Carbon Dioxide 23.4 mmol/L (21.0-32.0); Chloride 94 mmol/L (98-108); Glucose 85 mg/dL (70-99); Potassium 4.8 mmol/L (3.3-5.1)
[2025-02-13 13:54] LABS: Creatinine, Urine (random) 68.70 mg/dL (28.00-217.00); Protein, Urine (Random) 13.4 mg/dL (0.0-12.0); Protein:Creat Ratio 195 mg/g CRE (0-200)
== END | disposition home or self-care (01) ==
LOC: MTLAB 11:30
PROVIDERS: PCP Family Medicine; Referring Provider Internal Medicine Nephrology; Visit Provider Internal Medicine Nephrology
DX: I10 Essential (primary) hypertension (principal); E87.1 Hypo-osmolality and hyponatremia
CPT/HCPCS: 36415; 80048; 82570; 84156

== ENCOUNTER → 2025-02-23 | Outpatient (CLI) | payer MEDICARE, OTHER, SELFPAY ==
--- NOTE | 2025-02-23 15:50 | MRI_ITS ---
PROCEDURE: SPINE LUMBAR (ROUTINE) 02/23/2025 REASON FOR EXAM: COMPRESSION FRACTURE TECHNIQUE: Procedure Code: MRISPL Modality: MR Procedure: SPINE LUMBAR (ROUTINE) COMPARISON: MRI on 09/08/2024. Radiographs on 02/20/2025. FINDINGS: Heterogeneous signal intensity of the visualized bone marrow suggestive of osteopenia/osteoporosis. Prior vertebroplasty at L2. Moderate compression fracture of L1 vertebral body with associated bone marrow edema suggestive of acute/early subacute compression. Moderate compression fracture of L2 vertebral body with minimal associated bone marrow edema suggestive of superimposed acute/early subacute compression. The conus is unremarkable. Straightening of the lumbar lordosis. Moderate chronic changes of Baastrup's disease. Moderate diffuse spondylotic changes. Evaluation of the individual levels revealed the following: L5-S1: Mild diffuse disc bulge. Bilateral facet joint arthropathy. The spinal canal is not narrowed. There is mild bilateral neural foramina narrowing. L4-5: Moderate diffuse disc bulge. Superimposed broad-based left foraminal disc protrusion measuring 3.2 mm. Bilateral facet joint arthropathy and ligamentum flavum hypertrophy. The spinal canal is not narrowed. There is mild right and moderate left neural foramina narrowing. L3-4: Mild diffuse disc bulge. Superimposed broad-based right posterolateral/foraminal disc protrusion measuring 5.2 mm. Bilateral facet joint arthropathy and ligamentum flavum hypertrophy. The spinal canal is not narrowed. There is moderate bilateral neural foramina narrowing. L2-3: There is mild diffuse disc bulge. Superimposed broad-based left posterolateral disc protrusion measuring 3.5 mm. Bilateral facet joint arthropathy and ligamentum flavum hypertrophy. There is moderate bilateral neural foramina narrowing. L1-2: Retropulsion of the posterior wall of L2. Secondary moderate concentric spinal canal stenosis. The narrowest anteroposterior dimension of the spinal canal at this level measures 7.4 mm. Moderate diffuse disc bulge. Bilateral facet joint arthropathy and ligamentum flavum hypertrophy. Moderate bilateral neural foramina narrowing. T12-L1 mild retropulsion of the posterior wall of L1. Moderate diffuse disc bulge. Bilateral facet joint arthropathy and ligamentum flavum hypertrophy. Moderate concentric spinal canal stenosis. The narrowest anteroposterior dimension of the spinal canal measures 7.5 mm. Moderate bilateral neural foramina narrowing. T10-11: Chronic compression fracture of T10 vertebral body with mild associated retropulsion. Mild diffuse disc bulge. The spinal canal is mildly narrowed. Mild bilateral neural foramina narrowing. T9-T10: Moderate diffuse disc bulge. The spinal canal is mildly narrowed. Mild bilateral neural foramina narrowing. Chronic paraspinal muscular atrophy. MRI/Spine Lumbar (Routine) IMPRESSION: Spondylosis. Degenerative disc disease. Heterogeneous signal intensity of the visualized bone marrow suggestive of oste openia/osteoporosis. Prior vertebroplasty at L2. Moderate compression fracture of L1 vertebral body with associated bone marrow edema suggestive of acute/early subacute compression. Moderate compression fracture of L2 vertebral body with minimal associated bone marrow edema suggestive of superimposed acute/early subacute compression. Moderate chronic compression fracture of T10 vertebral body. Reading Location: [facility]
== END | disposition home or self-care (01) ==
LOC: MRI 15:18
PROVIDERS: PCP Family Medicine; Referring Provider Orthopaedic Surgery Orthopaedic Surgery of the Spine; Visit Provider Orthopaedic Surgery Orthopaedic Surgery of the Spine
DX: S32.000A Wedge compression fracture of unspecified lumbar vertebra, initial encounter for closed fracture (principal); M85.9 Disorder of bone density and structure, unspecified; X58.XXXA Exposure to other specified factors, initial encounter
CPT/HCPCS: 72148

== ENCOUNTER → 2025-03-10 | Outpatient (CLI) | payer MEDICARE, OTHER, SELFPAY ==
--- NOTE | 2025-03-10 12:30 | BD_ITS ---
PROCEDURE: DEXA BONE DENSITY STUDY 03/10/2025 REASON FOR EXAM: OSTEOPOROSIS F, age 69 y/o . TECHNIQUE: Procedure Code: BDDBD Modality: DX Procedure: DEXA BONE DENSITY STUDY COMPARISON: 07/27/2022 FINDINGS: BMD and T-SCORES Lumbar spine: 0.825 g/cm2, T-score -2.5 Levels: L3 and L4 Change from prior: -5.9%. Left femoral neck: 0.579 g/cm2, T-score -2.4 Left total hip: 0.697 g/cm2, T-score -2.0 Change from prior: -1.6%. Right femoral neck: 0.545 g/cm2, T-score -2.7 Right total hip: 0.642 g/cm2, T-score -2.5 Change from prior: -9%. The World Health Organization has defined the following categories based on bone density: Normal bone density: T-score equal to or greater than -1.0 Osteopenia: T-score between -1.0 and -2.5 Osteoporosis: T-score equal to or less than -2.5 FRAX (or Comparable) Fracture Risk Assessment: 10 Year Probability of Fracture: Major Osteoporotic Fracture: 36% Hip Fracture: 12% (Note: FRAX is not to be reported in setting of normal range bone density, osteoporosis on DEXA, known history of osteoporosis, prior osteoporotic hip or vertebral fracture, or for any patient undergoing pharmacological treatment for bone loss.) The National Osteoporosis Foundation (NOF) recommends pharmacological treatment for patients with a FRAX 10-year risk of 3% or higher for a hip fracture, or 20% or higher for a major osteoporotic fracture, to prevent osteoporosis and reduce fracture risk. The patient does meet the pharmacological treatment recommendations for prevention of osteoporosis. BD/Dexa Bone Density Study IMPRESSION: There is osteoporosis of the lumbar spine and the right hip. There is osteopen ia of the left hip. Recommend follow-up as clinically warranted. Reading Location: [id number]
--- NOTE | 2025-03-10 13:01 | CT_ITS ---
PROCEDURE: BRAIN/HEAD W/WO CONTRAST 03/10/2025 REASON FOR EXAM: MEMORY LOSS TECHNIQUE: Procedure Code: [id number] Modality: CT Procedure: BRAIN/HEAD W/WO CONTRAST Coronal and Sagittal reconstruction series were provided. CONTRAST: Amount not indicated One or more dose reduction techniques were used (e.g., Automated exposure control, adjustment of the mA and/or kV according to patient size, use of iterative reconstruction technique). RADIATION DOSE SUMMARY: CTDlvol: 45 mGy DLP: 1614 mGycm COMPARISON: 05/11/2021 FINDINGS: The bony calvarium is intact. The sinuses are clear. Noncontrast study demonstrates prior lacunar infarct left caudate. No intracranial mass. Postcontrast images demonstrate no findings of dural enhancement. No dural sinus thrombosis. No abnormal intracranial enhancing lesions CT/Brain/Head W/WO Contrast IMPRESSION: Prior lacunar infarct left basal ganglia. No acute abnormality Reading Location: [facility]
== END | disposition home or self-care (01) ==
PROVIDERS: PCP Family Medicine; Referring Provider Orthopaedic Surgery Orthopaedic Surgery of the Spine; Visit Provider Orthopaedic Surgery Orthopaedic Surgery of the Spine
DX: M81.0 Age-related osteoporosis without current pathological fracture (principal); R41.3 Other amnesia
CPT/HCPCS: 70470; 77080; Q9967

== ENCOUNTER → 2025-03-30 | Outpatient (CLI) | payer MEDICARE, OTHER, SELFPAY ==
--- NOTE | 2025-03-30 14:29 | BI_ITS ---
EXAM: SCRN MAMM (CAD)W/AMY BILAT DATE: 03/30/2025 CLINICAL HISTORY: F, Age 69 y/o , SCREENING Patient has bilateral breast implants. TECHNIQUE: Procedure Code: [id number] Modality: MG Procedure: SCRN MAMM (CAD)W/AMY BILAT pushback Pia CC and pushback Pia MLO views of the right and left breasts were also performed. COMPARISON: Prior exam(s) dated mammogram dated 11/19/2023 and 10/12/2022.. FINDINGS: TISSUE DENSITY: There are scattered areas of fibroglandular density. Bilateral Breast Mammographic Findings: No significant masses, calcifications or other abnormalities are identified. Both breast implants appear to be intact. Benign round microcalcifications and vascular calcifications are seen in both breast. BI/SCRN MAMM (CAD)W/AMY BILAT IMPRESSION: Benign screening mammogram. OVERALL FINAL ASSESSMENT BI-RADS 2: BENIGN RECOMMENDATION: Routine annual follow-up in 1 Year Additional Recommendation none A letter with findings and recommendations will be mailed to the patient. Reading Location: [id number]
--- NOTE | 2025-03-30 14:29 | BI_ITS ---
EXAM: SCRN MAMM (CAD)W/AMY BILAT DATE: 03/30/2025 CLINICAL HISTORY: F, Age 69 y/o , SCREENING Patient has bilateral breast implants. TECHNIQUE: Procedure Code: [id number] Modality: MG Procedure: SCRN MAMM (CAD)W/AMY BILAT pushback Pia CC and pushback Pia MLO views of the right and left breasts were also performed. COMPARISON: Prior exam(s) dated mammogram dated 11/19/2023 and 10/12/2022.. FINDINGS: TISSUE DENSITY: There are scattered areas of fibroglandular density. Bilateral Breast Mammographic Findings: No significant masses, calcifications or other abnormalities are identified. Both breast implants appear to be intact. Benign round microcalcifications and vascular calcifications are seen in both breast. BI/SCRN MAMM (CAD)W/AMY BILAT IMPRESSION: Benign screening mammogram. OVERALL FINAL ASSESSMENT BI-RADS 2: BENIGN RECOMMENDATION: Routine annual follow-up in 1 Year Additional Recommendation none A letter with findings and recommendations will be mailed to the patient. Reading Location: [id number]
== END | disposition home or self-care (01) ==
LOC: OPBI 14:27
PROVIDERS: PCP Family Medicine; Referring Provider Family Medicine; Visit Provider Family Medicine
DX: Z12.31 Encounter for screening mammogram for malignant neoplasm of breast (principal)
CPT/HCPCS: 77063; 77067

== ENCOUNTER → 2025-04-06 | Outpatient (CLI) | payer MEDICARE, OTHER, SELFPAY | END | disposition home or self-care (01) | PROVIDERS: PCP Family Medicine | DX: R47.01 Aphasia (principal) | CPT/HCPCS: 36415; 81401 ==

== ENCOUNTER → 2025-04-13 | Outpatient (CLI) | payer MEDICARE, OTHER, SELFPAY ==
--- NOTE | 2025-04-13 14:46 | CDU_ITS ---
Reason For Study Reason For Study: Stroke Rt. Velocities/BP Lt. Velocities/BP Prox CCA 87.2/13.5 cm/sec. Prox CCA 90.4/15.5 cm/sec. Mid CCA 87.2/15.7 cm/sec. Mid CCA 68.8/18.2 cm/sec. Dist CCA 61.1/6.2 cm/sec. Dist CCA 56.3/14.7 cm/sec. Prox ICA 51.6/12.8 cm/sec. Prox ICA 81.8/26.5 cm/sec. Mid ICA 76.5/25.9 cm/sec. Mid ICA 97.9/34 cm/sec. Dist ICA 104.7/32.3 cm/sec. Dist ICA 114.3/32.1 cm/sec. Rt. ICA/CCA = 1.20. Lt. ICA/CCA = 1.66. Prox ECA 97.7/10.6 cm/sec. Prox ECA 228.2/14.9 cm/sec. Rt. Vert. 45.9/13.6 cm/sec. Lt. Vert. 62/16.6 cm/sec. Right Extracranial There is heterogeneous, irregular atherosclerotic plaque noted in the right common carotid artery. There is heterogeneous, irregular atherosclerotic plaque noted in the right internal carotid artery. There is heterogeneous, irregular atherosclerotic plaque noted in the right external carotid artery. Antegrade flow is noted in the right vertebral artery. Left Extracranial There is heterogeneous, irregular atherosclerotic plaque noted in the left common carotid artery. There is heterogeneous, irregular atherosclerotic plaque noted in the left internal carotid artery. There is heterogeneous, irregular atherosclerotic plaque noted in the left external carotid artery. Antegrade flow is noted in the left vertebral artery. Procedure Carotid Duplex 18485. This is a Carotid Duplex examination using B-mode, color flow and specral Doppler. Exam performed in department. VL/Carotid Duplex Ultrasound Interpretation Summary Mild (<50%) stenosis right extracranial internal carotid. Mild (<50%) stenosis left extracranial internal carotid. Patent and antegrade vertebrals bilaterally. Ordering Physician: Nadia Ferrara Referring Physician: Frank Staley Performed By: Abril Flores RVT
== END | disposition home or self-care (01) ==
LOC: CVS 14:45
PROVIDERS: PCP Family Medicine
DX: I63.10 Cerebral infarction due to embolism of unspecified precerebral artery (principal)
CPT/HCPCS: 93880

== ENCOUNTER → 2025-04-14 | Outpatient (CLI) | payer MEDICARE, OTHER, SELFPAY ==
--- NOTE | 2025-04-14 13:52 | MRI_ITS ---
PROCEDURE: MRI/Brain without Contrast
== END | disposition home or self-care (01) ==
LOC: MRI 13:39
PROVIDERS: PCP Family Medicine
DX: Z86.73 Personal history of transient ischemic attack (TIA), and cerebral infarction without residual deficits (principal); R47.01 Aphasia
CPT/HCPCS: 70551

== ENCOUNTER → 2025-04-24 | Outpatient (CLI) | payer MEDICARE, OTHER, SELFPAY ==
--- NOTE | 2025-04-24 14:23 | RAD_ITS ---
PROCEDURE: KNEE 4 OR MORE VIEWS 04/24/2025 REASON FOR EXAM: KNEE PAIN TECHNIQUE: Procedure Code: RADKN Modality: DX Procedure: KNEE 4 OR MORE VIEWS Laterality: Left knee COMPARISON: None FINDINGS: Bones: No fracture seen. Joints: Mild degree of joint space narrowing of the patellofemoral joint and medial compartment of the knee joint. Effusion: Tiny effusion. Soft tissues: Soft tissues are unremarkable. Other: RAD/Knee 4 or More Views IMPRESSION: No fracture seen. Mild degree of joint space narrowing and degenerative changes of the patellofem oral joint in the medial compartment of the knee joint. Tiny knee effusion. Reading Location: [facility]
== END | disposition home or self-care (01) ==
LOC: MTRAD 14:21
PROVIDERS: PCP Family Medicine; Referring Provider Family Medicine; Visit Provider Family Medicine
DX: M25.562 Pain in left knee (principal)
CPT/HCPCS: 73564

== ENCOUNTER → 2025-04-30 | Outpatient (CLI) | payer MEDICARE, OTHER, SELFPAY ==
--- NOTE | 2025-04-30 09:54 | ECHOD_ITS ---
Reason For Study Reason For Study: STROKE Procedure This was a 2D Doppler, Color Flow transthoracic echocardiogram. Exam performed in department. Left Ventricle Normal LV size. The estimated ejection fraction is 65 %. No evidence for diastolic dysfunction. No regional wall motion abnormalities noted. Right Ventricle Normal RV size. Normal systolic function. Atria Normal left atrium. Normal right atrium. No doppler evidence for ASD. Mitral Valve There is mild mitral annular calcification. There is no mitral valve stenosis. Trivial mitral valve insufficiency. Tricuspid Valve There is no tricuspid stenosis. Trivial tricuspid valve insufficiency. Unable to estimate RV systolic pressure due to insufficient tricuspid regurgitant envelope. Aortic Valve Trisinus/trileaflet aortic valve. There is no aortic stenosis. No aortic valve insufficiency. Pulmonic Valve There is no pulmonic valvular stenosis. Trivial pulmonic valve insufficiency. Great Vessels Normal sized aortic root. Pericardium/Pleural No pericardial effusion. MMode/2D Measurements & Calculations LVIDd: 4.1 cm IVSd: 1.1 cm Ao root diam: 2.9 cm LVIDs: 2.0 cm LVPWd: 1.0 cm RVDd: 2.8 cm FS: 52.0 % LAV(MOD-bp): 39.7 ml LVAd ap4: 25.0 cm2 LVAd ap2: 22.6 cm2 LAV(MOD-bp) Indexed: 26.4 ml/m2 LVLd ap4: 7.7 cm LVLd ap2: 7.5 cm LAV(MOD-sp2): 31.2 ml EDV(MOD-sp4): 66.4 ml EDV(MOD-sp2): 58.1 ml LAV(MOD-sp4): 43.4 ml EDV(sp4-el): 68.6 ml EDV(sp2-el): 58.3 ml LVAs ap4: 11.5 cm2 LVAs ap2: 10.6 cm2 LVLs ap4: 5.8 cm LVLs ap2: 5.8 cm ESV(MOD-sp4): 19.2 ml ESV(MOD-sp2): 16.9 ml ESV(sp4-el): 19.4 ml ESV(sp2-el): 16.2 ml EF(MOD-sp4): 71.0 % EF(MOD-sp2): 70.9 % EF(sp4-el): 71.8 % SV(MOD-sp4): 47.2 ml SV(MOD-sp2): 41.2 ml SV(sp4-el): 49.2 ml SI(MOD-sp4): 31.4 ml/m2 SI(MOD-sp2): 27.5 ml/m2 LA A4 area: 16.3 cm2 LA dimension(2D): 3.6 cm RA A4 area: 13.1 cm2 TAPSE: 2.2 cm Time Measurements MV dec time: 0.19 sec Doppler Measurements & Calculations MV E max reji: 90.1 cm/sec Lat Peak E' Reji: 9.8 cm/sec Med Peak E' Reji: 8.8 cm/sec MV A max reji: 96.1 cm/sec E/E' lat: 9.2 E/E' med: 10.3 MV E/A: 0.94 Ao V2 max: 118.6 cm/sec LV V1 max: 112.9 cm/sec MV dec slope: 464.6 cm/sec2 Ao max P.6 mmHg LV V1 max P.1 mmHg Ao V2 mean: 78.5 cm/sec LV V1 mean P.8 mmHg Ao mean P.9 mmHg LV V1 mean: 78.2 cm/sec Ao V2 VTI: 26.3 cm LV V1 VTI: 23.5 cm AV (velocity ratio): 0.89 PA V2 max: 91.0 cm/sec TR max reji: 250.4 cm/sec TR max P.1 mmHg ECHO/Echo Complete Interpretation Summary The estimated ejection fraction is 65 %. No evidence for diastolic dysfunction. Trivial mitral valve insufficiency. Ordering Physician: Nadia Ferrara Referring Physician: Frank Staley Performed By: Tigre Valenzuela RDCS
== END | disposition home or self-care (01) ==
LOC: CVS 09:54
PROVIDERS: PCP Family Medicine
DX: Z86.73 Personal history of transient ischemic attack (TIA), and cerebral infarction without residual deficits (principal); R47.01 Aphasia
CPT/HCPCS: 93306